=== PATIENT | male | born 1950 | race Hispanic/Latino ===

== ENCOUNTER 2018-03-11 20:13 | Inpatient (IN) | payer MEDICARE ==
[2018-03-11 20:25] VITALS: BMI 22.2
[2018-03-11] MEDS ORDERED: Albuterol-Ipratrop 3 mg / 0.5 (3 ml) UD IH STA ×2 (20:28→20:29)
--- NOTE | 2018-03-11 20:30 | ED PDOC ---
Arrival/HPI - General Time Seen by Provider: 03/11/18 20:16 Historian: Patient - History of Present Illness Narrative History of Present Illness (Text): 03/11/18 20:30 Efraín Lambert is a 67 year old male, whose past medical history includes Stage 4 lung cancer on immunotherapy, who presents to the Emergency department complaining of shortness of breath. Patient states he has been experiencing shortness of breath for the past few days, worsening tonight, with associated cough and chest discomfort. Patient denies any fever, chills, nausea, vomiting, diarrhea, urinary symptoms, back pain, neck pain, headache, dizziness, or any other complaints. Symptom Onset: Gradual Symptom Course: Unchanged Activities at Onset: Light Context: Home Past Medical History - Provider Review Nursing Documentation Reviewed: Yes Family/Social History - Physician Review Nursing Documentation Reviewed: Yes Family/Social History: No Known Family HX Allergies/Home Meds Allergies/Adverse Reactions: Allergies azithromycin [From Zithromax Z-Denzel] Adverse Reaction (Verified 03/11/18 20:40) RASH ketamine Adverse Reaction (Verified 03/11/18 20:40) RASH Penicillins Adverse Reaction (Verified 03/11/18 20:40) RASH Home Medications: Home Meds Medication Instructions Recorded Confirmed Albuterol HFA [Ventolin HFA 90 2 puff IH [id number] 03/11/18 03/12/18 mcg/actuation (8 g)] DULoxetine [Cymbalta] 60 mg PO DAILY 03/11/18 03/12/18 Gabapentin [Neurontin] 300 mg PO TID 03/11/18 03/12/18 Metoprolol Succinate XL [Toprol XL] 100 mg PO DAILY 03/11/18 03/12/18 RX: Naproxen [Naprosyn Tab] 375 mg PO BID 03/11/18 03/12/18 RX: Omeprazole 20 mg PO DAILY 03/11/18 03/12/18 diaZEpam [Valium] 5 mg PO BID 03/11/18 03/12/18 Review of Systems - Physician Review All systems were reviewed & negative as marked: Yes - Review of Systems Constitutional: Normal. absent: Fevers Eyes: Normal ENT: Normal Respiratory: SOB, Cough Cardiovascular: Chest Pain Gastrointestinal: Normal. absent: Abdominal Pain, Diarrhea, Nausea, Vomiting Genitourinary Male: Normal. absent: Dysuria, Frequency, Hematuria, Urinary Output Changes Musculoskeletal: Other (+lower extremity swelling). absent: Back Pain, Neck Pain Skin: Normal. absent: Rash Neurological: Normal. absent: Headache, Dizziness Endocrine: Normal Hemo/Lymphatic: Normal Psychiatric: Normal Physical Exam Vital Signs Reviewed: Yes Temperature: Afebrile Blood Pressure: Normal Pulse: Regular Respiratory Rate: Normal Appearance: Positive for: Non-Toxic, Cachectic Pain Distress: None Mental Status: Positive for: Alert and Oriented X 3 - Systems Exam Head: Present: Atraumatic, Normocephalic Pupils: Present: PERRL Extroacular Muscles: Present: EOMI Conjunctiva: Present: Normal Mouth: Present: Moist Mucous Membranes Neck: Present: Normal Range of Motion Respiratory/Chest: Present: Decreased Breath Sounds (Decreased breath sounds bilaterally). No: Respiratory Distress, Accessory Muscle Use Cardiovascular: Present: Regular Rate and Rhythm, Normal S1, S2. No: Murmurs Abdomen: No: Tenderness, Distention, Peritoneal Signs Back: Present: Normal Inspection Upper Extremity: Present: Normal Inspection. No: Cyanosis, Edema Lower Extremity: Present: Edema (1+ pitting edema bilaterally) Neurological: Present: GCS=15, CN II-XII Intact, Speech Normal Skin: Present: Warm, Dry, Normal Color. No: Rashes Psychiatric: Present: Alert, Oriented x 3, Normal Insight, Normal Concentration Medical Decision Making ED Course and Treatment: 03/11/18 20:30 Impression: 67 year old male complaining of shortness of breath, chest discomfort, and cough. Plan: -- EKG -- Chest X-ray -- Labs, cardiac enzymes, BNP -- Duoneb -- Reassess and disposition Progress Notes: Reviewed EKG, sinus tachycardia at 108 bpm. Lateral T wave changes. 03/11/18 21:25 Chest X-ray reviewed, shows white out of the right lung. 03/11/18 22:05 Pt tachycardic with WBC: 19.1 and lactate: 2.2. Code Sepsis called. 03/11/18 22:08 Case discussed with medical records secretary adjunct instructor in economics, who is aware and agrees with plan. 03/11/18 22:[address] Kruger, marina sales and service supervisor, who agrees to evaluate pt for possible ICU admission. 03/11/18 22:[address] Kruger, present in Emergency department to evaluate pt. Pt will be admitted to the ICU for sepsis, pneumonia, and lung cancer under the hospitalist service.Will hold off on IV fluids at this time given patients elevated BNP/pulmonary status. - Critical Care Critical Care Minutes: 30 minutes - Lab Interpretations I have reviewed the lab results: Yes - RAD Interpretation Radiology Orders: 03/11/18 20:28 CHEST PORTABLE [RAD] Stat Core Drilling Supervisor: ED Physician - EKG Interpretation Interpreted by ED Physician: Yes Type: 12 lead EKG - Medication Orders Current Medication Orders: Albuterol/Ipratropium (Duoneb 3 Mg/0.5 Mg (3 Ml) Ud) 3 ml IH ONCE STA Stop: 03/11/18 20:29 - Scribe Statement The provider has reviewed the documentation as recorded by the Cleveibisaac Godwin Provider Scribe Attestation: All medical record entries made by the Scribe were at my direction and personally dictated by me. I have reviewed the chart and agree that the record accurately reflects my personal performance of the history, physical exam, medical decision making, and the department course for this patient. I have also personally directed, reviewed, and agree with the discharge instructions and disposition. Disposition/Present on Arrival - Present on Arrival Any Indicators Present on Arrival: No History of DVT/PE: No History of Uncontrolled Diabetes: No Urinary Catheter: No History of Decub. Ulcer: No History Surgical Site Infection Following: None - Disposition Have Diagnosis and Disposition been Completed?: Yes Diagnosis: Pneumonia, Sepsis, Lung cancer Disposition: HOSPITALIZED Disposition Time: 23:04 Patient Plan: ICU Patient Problems: Current Active Problems Problem Status Onset Lung cancer Acute Pneumonia Acute Sepsis Acute Condition: GUARDED
[2018-03-11 21:09] LABS: HEMOGLOBIN 11.3 g/dL (14.0-18.0); MEAN CELL VOLUME 83.7 fl (80.0-105.0); MEAN CORPUSCULAR HGB CONC 32.3 g/dl (31.0-37.0); RBC 4.18 10^6/uL (3.5-6.1); RED CELL DISTRIBUTION WIDTH 15.8 % (11.5-14.5); WHITE BLOOD COUNT 19.1 10^3/uL (4.5-11.0)
[2018-03-11 21:18] LABS: INR 1.41; PARTIAL THROMBOPLASTIN TIME 28.5 Seconds (25.1-36.5); PROTHROMBIN TIME 16.2 SECONDS (9.4-12.5)
[2018-03-11 21:19] LABS: ALBUMIN 3.4 g/dL (3.0-4.8); ALT/SGPT 26 U/L (7-56); AST/SGOT 22 U/L (17-59); BLOOD UREA NITROGEN 55 mg/dL (7-21); CALCIUM 8.9 mg/dL (8.4-10.5); GFR NON-AFRICAN AMERICAN 43
[2018-03-11 21:31] LABS: B-TYPE NATRIURETIC PEPTIDE 6550 pg/mL (0-450); TROPONIN I 0.03 ng/mL
[2018-03-11] MEDS ORDERED: Aztreonam 2 Gm in NS 100mL 100 ML IVPB STA (21:33)
[2018-03-11] MEDS ORDERED: Vancomycin 1gm in NS 250ml 1 GM/250 ML BAG IVPB STA (21:33)
[2018-03-11 21:52] LABS: VENOUS BLOOD GAS BASE EXCESS 1.3 mmol/L (0.0-2.0); VENOUS BLOOD GAS PO2 57 mm/Hg (30-55); VENOUS BLOOD PH 7.37 (7.32-7.43)
[2018-03-11 23:27] LABS: ARTERIAL BLOOD GAS O2 SAT 88.8 % (95-98); ARTERIAL BLOOD GAS PCO2 38 mm/Hg (35-45); ARTERIAL BLOOD GAS PH 7.39 (7.35-7.45); ARTERIAL BLOOD GAS TCO2 24.2 mmol.L (22-28)
--- NOTE | 2018-03-11 23:37 | CP.PCM.HP ---
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 Patient reports his shortness of breath has been worsening over the past two weeks. 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 He reported that he has had chemo-radiation therapies in the past; and reported during evaluation that he has had remission in the past. He reports during the past two weeks his SOB has been associated w/ worsening orthopnea, productive cough w/ dark sputum, 20lb weight loss, decreased appetite + nausea, and 2 days of worsening bilateral lower extremity edema. Also reports worsening fatigue/ lethargy and weakness. Patient also reported intermittent periods of heaviness in his chest and mild chest pains; denies any at present. Patient also reports increasing crusting/discharge, and burning from his eyes over the past two weeks. He reports he is very thirsty. He also reports a rash on his buttocks He denies fevers, chills, night sweats, V/D/C, abd pain, urinary discomfort/ pain, hematuria, numbness/tingling. Remainder 12 system ROS is otherwise negative. PMD: Debby [phone] PHARM: [facility]: Only medications w/ full sig were updated into EMR The following agents were listed on file w/ patient's pharmacy: [facility] Naproxen 375 BID Omeprazole 20 QD Duloxetine 60mg QD Ventolin 2puff Q6H metroprolol er 100 qd diazepam 5 BID Gabapentin 300 TID The following agents were listed in patient's phone; not on file w/ pharamcy Abrazane 200 Zofran Depadron dose unknown Taxotere 6 on 2 off Taxol Oxycontin 20 Percocet 5-325 Kytril Folic acid Lomotil PSH: Appy, Liver ablation ALL: Ketamine, Zithromax, Penicillin Social: Quit smoking 30 years ago, EtOH daily 1-2 drinks nightly, Denies illicit drugs Present on Admission - Present on Admission Any Indicators Present on Admission: Yes History of DVT/PE: No Review of Systems - Review of Systems All systems: reviewed and no additional remarkable complaints except Review of Systems: as per HPI Past Patient History - Infectious Disease Hx of Infectious Diseases: None - Past Social History Smoking Status: Former Smoker - CARDIAC Hx Hypertension: Yes - PULMONARY Hx Chronic Obstructive Pulmonary Disease (COPD): Yes - HEMATOLOGICAL/ONCOLOGICAL Hx Cancer: Yes (lung CA mets to liver) - PSYCHIATRIC Hx Substance Use: No - SURGICAL HISTORY Other/Comment: PORT a CAth (Left) - ANESTHESIA Hx Anesthesia: Yes Meds Allergies/Adverse Reactions: Allergies Allergy/AdvReac Type Severity Reaction Status Date / Time azithromycin AdvReac RASH Verified 03/11/18 20:40 [From Zithromax Z-Denzel] ketamine AdvReac RASH Verified 03/11/18 20:40 Penicillins AdvReac RASH Verified 03/11/18 20:40 Physical Exam - Constitutional Appears: Toxic (Very weak/ill appearing ), Chronically Ill - Head Exam Head Exam: ATRAUMATIC, NORMOCEPHALIC - Eye Exam Eye Exam: Conjunctival injection, EOMI, PERRL Additional comments: Mucupurlent discharge from eyes bilaterally - ENT Exam ENT Exam: Mucous Membranes Moist Additional comments: Purulent discharge in mouth - Respiratory Exam Additional comments: RML/RLL significantly decreased breath sounds; Left upper, middle, and lower lung khan - good air moovement, diffuse ronchi/ rales - Cardiovascular Exam Cardiovascular Exam: Tachycardia, +S1, +S2. absent: Systolic Murmur - GI/Abdominal Exam GI & Abdominal Exam: Normal Bowel Sounds, Soft. absent: Tenderness - Extremities Exam Additional comments: 1+ pitting edema bilaterally Distal pulses diminished bilaterally - Neurological Exam Neurological exam: Alert, Oriented x3 - Psychiatric Exam Psychiatric exam: Anxious - Skin Skin Exam: Dry, Intact, Normal Color, Warm Results - Vital Signs Recent Vital Signs: Last Vital Signs Temp 97.8 F 03/11/18 20:25 Pulse 108 H 03/11/18 22:33 Resp 20 03/11/18 22:33 BP 149/79 03/11/18 22:33 Pulse Ox 100 03/11/18 22:33 - Labs Result Diagrams: 03/11/18 20:55 03/11/18 20:55 Labs: Laboratory Results - last 24 hr 03/11/18 03/11/18 03/11/18 20:55 20:55 20:55 WBC 19.1 H RBC 4.18 Hgb 11.3 L Hct 35.0 L MCV 83.7 MCH 27.0 MCHC 32.3 RDW 15.8 H Plt Count 195 MPV 10.0 PT 16.2 H INR 1.41 APTT 28.5 pO2 VBG pH VBG pCO2 VBG HCO3 VBG Total CO2 VBG O2 Sat (Calc) VBG Base Excess VBG Potassium Glucose Lactate FiO2 Sodium 137 Potassium 4.6 Chloride 98 Carbon Dioxide 26 Anion Gap 17 BUN 55 H Creatinine 1.6 H Est GFR ( Amer) 52 Est GFR (Non-Af Amer) 43 Random Glucose 119 H Calcium 8.9 Total Bilirubin 1.8 H AST 22 ALT 26 Alkaline Phosphatase 116 Lactate Dehydrogenase 324 L Total Creatine Kinase < 20 L Troponin I 0.03 NT-Pro-B Natriuret Pep 6550 H Total Protein 6.6 Albumin 3.4 Globulin 3.3 Albumin/Globulin Ratio 1.0 L Venous Blood Potassium 03/11/18 21:30 WBC RBC Hgb Hct MCV MCH MCHC RDW Plt Count MPV PT INR APTT pO2 57 H VBG pH 7.37 VBG pCO2 47.0 VBG HCO3 27.2 VBG Total CO2 28.6 H VBG O2 Sat (Calc) 91.0 H VBG Base Excess 1.3 VBG Potassium 4.5 Glucose 115 H Lactate 2.2 H FiO2 21.0 Sodium 135.0 Potassium Chloride 98.0 Carbon Dioxide Anion Gap BUN Creatinine Est GFR ( Amer) Est GFR (Non-Af Amer) Random Glucose Calcium Total Bilirubin AST ALT Alkaline Phosphatase Lactate Dehydrogenase Total Creatine Kinase Troponin I NT-Pro-B Natriuret Pep Total Protein Albumin Globulin Albumin/Globulin Ratio Venous Blood Potassium 4.5 Assessment & Plan - Assessment and Plan (Free Text) Assessment: 67M w/ a reported 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 Patient is admitted to ICU for management and treatment of hypoxemic respiratory failure. Patient also found to have the following assessments upon admission: Hypoxemic Respiratory Failure Possible New onset CHF Bacterial conjunctivitis SAUD Hx of Anxiety / Depression Adenoid CA w/ mets to liver/lung/bone Sepsis PLAN: Neuro: Hx of Anxiety/ Depression -AAOx3, no FND, moving extremities past midline. -Continue monitoring neuro status -Would hold home diazepam at this time as to not suppress respiratory drive -Resume home duloxetine -Judacious use of anxiolytics -Pt is deilrious; unable to follow instruction -Will keep pt npo for now; swallow eval to be followed up -Reorient patient as necessary. Cardio: -BNP elevated; Mild ischemic changes seen on EKG; Tachcardic -First trop equivocal -Trend troponin x2 -F/u AM EKG -C/w home metoprolol xl 100 -F/u Echo -Maintain MAP>65. -Monitor for S/S, HD compromise. -Can consider milrinone drip -Cardiology consulted, appreciate reccs Pulm: -RML/RLL w/ decreased breath sounds -03/11 CXR - diffuse R sided white out w/ tracheal deviation towards the left ; Cardiac plueral effusion vs Malignant pleural effusion vs atelcatsis vs pneumonia -F/u CT Chest official read pending; Appears to be very large compression atelectasis as interpreted by me -IR Consulted, appreciate reccs -F/u Procal -ABG shows mild hypoxemia -Patient becomes agitated due to positional changes begins complaining of severe cough and shortness of breath overnight; -Will start patient on bipap at this time 12/6 FIO2 40 @ 12/min -Chest PT -Repeat AM ABG and CXR -Maintain O2 saturation>95%. -Elevate bed to 45 degrees ; Aspiration precautions GI: -Patient reports decreased appetite at this time - LFT wnl; Tbili elevated; Asx on abdominal exam -Can c/w normal diet at this time -Supplement w/ ensure -Protonix 40mg IVP /Nephro: -BUN/Cr: 55/1.6 - SAUD vs CKD -Judacious fluid resucitation given volume overload -Will start gentle hydration at 50cc/hr -UA pending -Continue monitoring urine outpt -Replete electrolytes as needed -Can consider milrninone to increase renal perfusion -Maintain euvolemia; Endocrinology: -Random glucose: 119 -Maintain euglycemia. Heme/Onc: Previous Hx of Adenoid CA w/ mets to lung, liver, bone -Heme/Onc consulted - Dr. Vaughn - Per patient's request -Hb 11; PLT 195 -Leukocytosis -19.1 - Reactive 2/2 CA vs Infectious -No signs of HD compromise at this time -Continue monitoring H/H -Home Chemo regimen listed in H&P ID: -Afebrile, w/ leukocytosis and tachycardia; lactate elevated 2.5 -No clear source of infection; -No need for bolus given patient showing signs of volume overload (new onset LE pitting edema) -Panculture pending -Will c/w vancomycin + aztreonam given azithryomycin + penicillin allergies -F/u Procal -Follow up BCx, UCx, SputCx -Monitor for signs and symptoms of infection. DVT prophylaxis: Heparin 5000 Q8 GI prophylaxis: Protonix 40mg IVP Patient seen and examined with attending Dr. Saskia Early DO PGY1 Internal Medicine Laboratory Mechanical Technician - Hospitalist ICU Admission Note <Sandy Kruger - Last Filed: 03/12/18 05:08> Results - Vital Signs Recent Vital Signs: Last Vital Signs Temp 97.8 F 03/11/18 20:25 Pulse 108 H 03/11/18 22:33 Resp 18 03/12/18 00:45 BP 149/79 03/11/18 22:33 Pulse Ox 98 03/12/18 00:45 - Labs Result Diagrams: 03/11/18 20:55 03/11/18 20:55 Labs: Laboratory Results - last 24 hr 03/11/18 03/11/18 03/11/18 20:55 20:55 20:55 WBC 19.1 H RBC 4.18 Hgb 11.3 L Hct 35.0 L MCV 83.7 MCH 27.0 MCHC 32.3 RDW 15.8 H Plt Count 195 MPV 10.0 PT 16.2 H INR 1.41 APTT 28.5 pCO2 pO2 HCO3 ABG pH ABG Total CO2 ABG O2 Saturation ABG Base Excess ABG Potassium VBG pH VBG pCO2 VBG HCO3 VBG Total CO2 VBG O2 Sat (Calc) VBG Base Excess VBG Potassium Glucose Lactate FiO2 Sodium 137 Potassium 4.6 Chloride 98 Carbon Dioxide 26 Anion Gap 17 BUN 55 H Creatinine 1.6 H Est GFR ( Amer) 52 Est GFR (Non-Af Amer) 43 Random Glucose 119 H Calcium 8.9 Total Bilirubin 1.8 H AST 22 ALT 26 Alkaline Phosphatase 116 Lactate Dehydrogenase 324 L Total Creatine Kinase < 20 L Troponin I 0.03 NT-Pro-B Natriuret Pep 6550 H Total Protein 6.6 Albumin 3.4 Globulin 3.3 Albumin/Globulin Ratio 1.0 L Arterial Blood Potassium Venous Blood Potassium 03/11/18 03/11/18 03/12/18 21:30 23:20 01:30 WBC RBC Hgb Hct MCV MCH MCHC RDW Plt Count MPV PT INR APTT pCO2 38 pO2 57 H 52.0 L 36 HCO3 23.0 ABG pH 7.39 ABG Total CO2 24.2 ABG O2 Saturation 88.8 L ABG Base Excess -1.7 ABG Potassium 4.3 VBG pH 7.37 7.30 L VBG pCO2 47.0 57.0 VBG HCO3 27.2 28.0 VBG Total CO2 28.6 H 29.7 H VBG O2 Sat (Calc) 91.0 H 64.6 VBG Base Excess 1.3 0.4 VBG Potassium 4.5 4.4 Glucose 115 H 119 H 120 H Lactate 2.2 H 2.5 H 2.5 H FiO2 21.0 28.0 21.0 Sodium 135.0 136.0 136.0 Potassium Chloride 98.0 99.0 98.0 Carbon Dioxide Anion Gap BUN Creatinine Est GFR ( Amer) Est GFR (Non-Af Amer) Random Glucose Calcium Total Bilirubin AST ALT Alkaline Phosphatase Lactate Dehydrogenase Total Creatine Kinase Troponin I NT-Pro-B Natriuret Pep Total Protein Albumin Globulin Albumin/Globulin Ratio Arterial Blood Potassium 4.3 Venous Blood Potassium 4.5 4.4 Attending/Attestation - Attestation I have personally seen and examined this patient.: Yes I have fully participated in the care of the patient.: Yes I have reviewed all pertinent clinical information: Yes Notes (Text): 03/12/18 02:11 Seen when he was in the ER in bed # 7. History obtained from and some from patient. Agree with history, physical examination, assessment and plan with some inclusions and exclusions. 67 year old white male came with, CC: Dyspnea. Weakness. Not eating. No appetite. Depressed since Son in December 26. Both eye conjunctivitisx 1 week. Lost 20 lbs in one month. Both legs swelling. Severe hypoxia. Sepsis. Sinus tachycardia. Lateral leads T wave changes. Elevated lactate level. Leukocytosis-19.1 Borderline anemia-11.3/35 Coag-PT 16.2H BNP-6550. VBG--Lactate 2.2 CHEM-BUN/Cr.55/1.6;T.Miguel-1.8H LDH 324H,BNP-6550H CXR-Opafification of total right lung field. CT CHEST:Right sided central hilar bronchial obstruction. Complete passive atelectasis disease in right lung. Mild mediastianal shift to the left side. Left Port-A-Cath in good position with tip in SVC. Diffuse centrilobular and septal thickening/nodularity with irregularity of left lung , ? lymphangitis carcinomatosis. Mildly enlarged mediastinal and hilar lymph nodes the largest measuring 1.4 cm. Calcified atheromatous plaque of the thoracic aorta and visualized great vessels. No demonstrated aortic aneurism. Moderate diffuse spondylosis. Small sliding hiatal hernia. PMH: Stage Iv lung cancer.Sees a [facility] oncologist. On Immunotherapy. HTN. DM II. Appendectomy. Port-a-cath insertion. Last chemotherpay one year ago. B/L cataract surgery. Mets to liver History of hepatitis A. Ablation of liver ( In patient's word.) HOME MEDS: Metoprolol 100 mg PO daily. PLAN: ICU. NPO. Oncology consult.-Dr. Vaughn. Smooth Izquierdo Consult. Pulmonary consult. ID consult Nephrology consult-. Cardiology consult. IV antibiotics.-Azactam, vancomycin. ABG Arterial.-Hypoxia--->Hiflo oxygen therapy. IV hydration. GI/DVT prophylaxis. 03/12/18 05:07
[2018-03-12 01:43] LABS: VENOUS BLOOD GAS BASE EXCESS 0.4 mmol/L (0.0-2.0); VENOUS BLOOD GAS PO2 36 mm/Hg (30-55)
[2018-03-12] MEDS ORDERED: Sodium Chloride 0.9% 1,000 ML IV SCH (01:45)
--- NOTE | 2018-03-12 02:32 | PCM.SEPTIC ---
<Carolee Rice - Last Filed: 03/12/18 02:28> Sepsis Progress Note - Reassessment Type Date of Evaluation: 03/12/18 Time of Evaluation: 01:30 Reassessment Type: Non-invasive reassessment - Non Invasive Reassessment Were the most recent vital sign reviewed: Yes Vital Sign (Latest): Temp Pulse Resp BP Pulse Ox 97.8 F 108 H 18 149/79 98 03/11/18 20:25 03/11/18 22:33 03/12/18 00:45 03/11/18 22:33 03/12/18 00:45 Cardiovascular: Yes: Tachycardia. No: Murmur Respiratory: Yes: Normal Breath Sounds. No: Accessory Muscle Use Capillary Refill: Normal (Less than 2 sec) Pulses: Normal Radial, Normal Dorsalis Pedis, Normal Posterior Tibialis Skin: Pale <Sandy Kruger - Last Filed: 03/12/18 02:39> Sepsis Progress Note - Non Invasive Reassessment Vital Sign (Latest): Temp Pulse Resp BP Pulse Ox 97.8 F 135 H 18 149/79 100 03/11/18 20:25 03/12/18 02:00 03/12/18 00:45 03/11/18 22:33 03/12/18 02:00 Attending/Attestation - Attestation I have personally seen and examined this patient.: Yes I have fully participated in the care of the patient.: Yes I have reviewed all pertinent clinical information, including history, physical exam and plan: Yes
[2018-03-12] MEDS: Sodium Chloride 0.9% 1,000 ML IV SCH (04:47)
[2018-03-12] MEDS ORDERED: Aztreonam 1 Gm in NS 100mL 100 ML IVPB SCH (06:00)
[2018-03-12 06:08] LABS: BASO # 0.01 K/mm3 (0.0-2.0); BASO % 0.1 % (0.0-3.0); GRAN # 16.71 (1.4-6.5); GRAN % 90.6 % (50.0-68.0); HEMOGLOBIN 11.1 g/dL (14.0-18.0); LYMPH # 0.6 (1.2-3.4); MEAN CELL VOLUME 84.5 fl (80.0-105.0); MEAN CORPUSCULAR HEMOGLOBIN 26.4 pg (25.0-35.0); MEAN CORPUSCULAR HGB CONC 31.3 g/dl (31.0-37.0); MEAN PLATELET VOLUME 10.4 fl (7.0-11.0); MONO # 1.2 (0.1-0.6); MONO % 6.3 % (1.0-6.0); PLATELET COUNT 187 10^3/uL (120.0-450.0); RED CELL DISTRIBUTION WIDTH 15.9 % (11.5-14.5); WHITE BLOOD COUNT 18.5 10^3/uL (4.5-11.0)
[2018-03-12 06:14] LABS: ALBUMIN 3.3 g/dL (3.0-4.8); CALCIUM 8.8 mg/dL (8.4-10.5)
[2018-03-12 06:21] LABS: TROPONIN I 0.06 ng/mL
[2018-03-12 06:44] LABS: ARTERIAL BLOOD GAS HCO3 25.9 mmol/L (21-28); ARTERIAL BLOOD GAS PCO2 40 mm/Hg (35-45); ARTERIAL BLOOD GAS PH 7.42 (7.35-7.45); ARTERIAL BLOOD GAS TCO2 27.1 mmol.L (22-28)
[2018-03-12 07:02] LABS: BAND 6 % (0-2); EOSINOPHIL 1 % (0.0-3.0); LYMPHOCYTE 4 % (22.0-35.0); MONOCYTE 4 % (1.0-6.0); NEUTROPHIL 85 % (50.0-70.0); PLATELET ESTIMATE NORMAL (NORMAL)
[2018-03-12 07:03] LABS: ANISOCYTOSIS SLIGHT; POIKILOCYTOSIS SLIGHT; TOXIC GRANULATION SLIGHT
[2018-03-12] MEDS: Albuterol-Ipratrop 3 mg / 0.5 (3 ml) UD IH PRN (07:42)
--- NOTE | 2018-03-12 09:10 | RAD ---
Date of service: 03/11/2018 HISTORY: sob COMPARISON: No prior. FINDINGS: LUNGS: There is complete opacification of the right hemithorax. There is no mediastinal shift PLEURA: As above CARDIOVASCULAR: Aortic calcification Normal cardiac size. No pulmonary vascular congestion. OSSEOUS STRUCTURES: No significant abnormalities. VISUALIZED UPPER ABDOMEN: Normal. OTHER FINDINGS: None. IMPRESSION: There is complete opacification of the right hemithorax. There is no mediastinal shift
[2018-03-12 09:13] LABS: URINE BILIRUBIN MODERATE (NEGATIVE); URINE BLOOD LARGE (NEGATIVE); URINE GLUCOSE (UA) NEGATIVE (NEGATIVE); URINE LEUKOCYTE ESTERASE TRACE Leu/uL (NEGATIVE); URINE PROTEIN 30 mg/dL (<30 mg/dL)
[2018-03-12 09:17] LABS: URINE APPEARANCE CLOUDY (CLEAR); URINE COLOR LIGHT BROWN (YELLOW)
--- NOTE | 2018-03-12 09:28 | RAD ---
Date of service: 03/12/2018 HISTORY: R sided whiteout COMPARISON: 03/11/2018 FINDINGS: LUNGS: There is complete opacification of the right lung. This is unchanged. There is no mediastinal shift PLEURA: No significant pleural effusion identified, no pneumothorax apparent. CARDIOVASCULAR: Aortic calcification Normal cardiac size. No pulmonary vascular congestion. OSSEOUS STRUCTURES: No significant abnormalities. VISUALIZED UPPER ABDOMEN: Normal. OTHER FINDINGS: Left-sided Port-A-Cath IMPRESSION: There is complete opacification of the right lung. This is unchanged. There is no mediastinal shift
[2018-03-12 09:41] LABS: URINE RBC TNTC /hpf (0-2); URINE WBC 15 - 20 /hpf (0-6)
[2018-03-12 09:42] LABS: URINE AMORPHOUS SEDIMENT MODERATE /hpf; URINE BACTERIA MANY /hpf; URINE COARSE GRANULAR CAST SMALL /hpf; URINE EPITHELIAL CELLS 0 - 2 /hpf (0-5); URINE FINE GRANULAR CAST 0 - 2 /hpf
[2018-03-12] MEDS: Metoprolol Succinate 100 mg XL Tab PO SCH (09:47)
[2018-03-12] MEDS: Vancomycin 1gm in NS 250ml 1 GM/250 ML BAG IVPB SCH (09:52)
[2018-03-12] MEDS: Meropenem IV 1 gm in NS 1 GM/50 ML BAG IVPB SCH ×2 (09:52→22:00)
[2018-03-12] MEDS ORDERED: Vancomycin 1gm in NS 250ml 1 GM/250 ML BAG IVPB SCH (10:00)
--- NOTE | 2018-03-12 10:07 | CARD ---
APPROVED REPORT Date of service: 03/12/2018 EKG Measurement Heart [id number] CO [id number] <Conclusion> Sinus tachycardia Low voltage QRS Nonspecific T wave abnormality Abnormal ECG
--- NOTE | 2018-03-12 10:08 | CARD ---
APPROVED REPORT Date of service: 03/11/2018 EKG Measurement Heart [id number] [place] [id number] <Conclusion> Sinus tachycardia T wave abnormality, consider lateral ischemia Abnormal ECG
--- NOTE | 2018-03-12 10:21 | CP.PCM.PN ---
<Azar Chen - Last Filed: 03/12/18 13:51> Subjective - Date & Time of Evaluation Date of Evaluation: 03/12/18 Time of Evaluation: 07:30 - Subjective Subjective: Carlos Gustavo PGy2 - ICU Progress Note Patient seen and examined this AM. Patient is somnolent on BiPAP ROS limited. Patient noted to be agitated with placement of BiPAP overnight and placed in soft restraints. Objective - Vital Signs/Intake and Output Vital Signs (last 24 hours): Temp Pulse Resp BP Pulse Ox 98.5 F 119 H 24 125/69 99 03/12/18 07:00 03/12/18 09:47 03/12/18 08:17 03/12/18 09:47 03/12/18 08:17 - Medications Medications: Current Medications Albuterol/Ipratropium (Duoneb 3 Mg/0.5 Mg (3 Ml) Ud) 3 ml IH Q2H PRN PRN Reason: Shortness of Breath Last Admin: 03/12/18 07:42 Dose: 3 ml Ciprofloxacin (Ciloxan 0.3% Oph Soln) 2 drop OU Q6 DAVID Stop: 03/18/18 06:00 Duloxetine HCl (Cymbalta) 60 mg PO DAILY DAVID Last Admin: 03/12/18 09:43 Dose: Not Given Gabapentin (Neurontin) 300 mg PO TID DAVID; Protocol Last Admin: 03/12/18 09:44 Dose: Not Given Sodium Chloride (Sodium Chloride 0.9%) 1,000 mls @ 30 mls/hr IV .Q24H DAVID Last Admin: 03/12/18 04:47 Dose: 30 mls/hr Meropenem (Merrem Iv 1 Gm Premix) 1 gm in 50 mls @ 12.5 mls/hr IVPB Q12 DAVID; Protocol Stop: 03/21/18 10:01 Last Admin: 03/12/18 09:52 Dose: 12.5 mls/hr Doxycycline Hyclate 100 mg/ (Sodium Chloride) 100 mls @ 100 mls/hr IVPB Q12 DAVID; Protocol Stop: 03/21/18 10:01 Last Admin: 03/12/18 09:57 Dose: 100 mls/hr Vancomycin HCl (Vancomycin 1gm) 1 gm in 250 mls @ 167 mls/hr IVPB DAILY DAVID; Protocol Stop: 03/21/18 10:01 Last Admin: 03/12/18 09:52 Dose: 167 mls/hr Metoprolol Succinate (Toprol Xl) 100 mg PO DAILY [facility] Last Admin: 03/12/18 09:47 Dose: Not Given Pantoprazole Sodium (Protonix Inj) 40 mg IVP DAILY [facility] Last Admin: 03/12/18 09:54 Dose: 40 mg - Labs Labs: 03/12/18 05:20 03/12/18 05:20 PT 16.2 SECONDS (9.4-12.5) H 03/11/18 20:55 INR 1.41 03/11/18 20:55 APTT 28.5 Seconds (25.1-36.5) 03/11/18 20:55 - Constitutional Appears: No Acute Distress - Head Exam Head Exam: ATRAUMATIC, NORMOCEPHALIC - Eye Exam Eye Exam: Conjunctival injection, PERRL - ENT Exam ENT Exam: Mucous Membranes Dry, Normal External Ear Exam - Respiratory Exam Additional comments: absent breath sounds on the right Left side without rales, rhonchi - Cardiovascular Exam Cardiovascular Exam: Tachycardia, REGULAR RHYTHM, +S1, +S2 - GI/Abdominal Exam GI & Abdominal Exam: Soft, Normal Bowel Sounds. 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 Patient admitted to ICU for hypoxemia respiratory failure with right sided pleural effusion. Plan: Neruo - Alert and oriented, somnolent on exam - GCS 11 - Continue to monitor and evaluate neuro status Cardio Hx HTN - Maintain MAP >65 - Holding morning metoprolol as patient normotensive Elevated BNP, ?CHF picture - Patient with elevated BNP(6550), no baseline to draw from - Bilateral edema, normotenisive, hx of orthopnea(possible secondary to increasing pleural effusion) - Echocardiogram ordered pending Indeterminate trops - Trop 0.03, 0.06, third pending - EKG showing sinus tachycardia, no prevalent ST wave depression/elevation Pulmonary Hx of Lung adenocarcinoma Right sided pleural effusion, multiloculated - CXR with right sided white out - CT chest with complete atelectasis of the right lung with endobronchial obstruction, large right pleural effusion - Patient placed on BiPAP overnight, ABG improved, BiPAP discontinued today, monitor respiratory status - Vanc, Doxy, Merrem for pna coverage - IR consulted for therapeutic thoracentesis - Palliative care consulted for advance directive planning GI - Dietary supplementation - Awaiting swallow evaluation - Protonix for GI ppx RENAL - Slightly elevated Cr on admission - Gentle hydration Cr wnl on today's labs - Maintain euvolemia, replace lytes HEME/ONC Stage IV Lung adenocarcinoma - Heme/Onc following Luekocytosis - Etiology pneumonia vs. reactionary vs. malignancy ID Right sided pleural effusion/pneumonia Sepsis on admission with elevated Lactate, tachycardia, leukocytosis - Vanc, Aztreonam in ED, limited fluid challenge secondary to acute CHF picture - ID consulted and following DVT/GI PPX - Heparin - Protonix Patient seen, case and plan discussed with attending <Angelito Li - Last Filed: 03/12/18 14:13> Objective - Vital Signs/Intake and Output Vital Signs (last 24 hours): Temp Pulse Resp BP Pulse Ox 98.5 F 115 H 20 139/91 H 100 03/12/18 07:00 03/12/18 10:21 03/12/18 10:20 03/12/18 10:00 03/12/18 10:20 - Medications Medications: Current Medications Albuterol/Ipratropium (Duoneb 3 Mg/0.5 Mg (3 Ml) Ud) 3 ml IH Q2H PRN PRN Reason: Shortness of Breath Last Admin: 03/12/18 07:42 Dose: 3 ml Ciprofloxacin (Ciloxan 0.3% Ophth Soln) 2 drop OU Q6 DAVID Stop: 03/18/18 06:00 Last Admin: 03/12/18 12:00 Dose: 2 drop Duloxetine HCl (Cymbalta) 60 mg PO DAILY DAVID Last Admin: 03/12/18 09:43 Dose: Not Given Gabapentin (Neurontin) 300 mg PO TID [facility]; Protocol Last Admin: 03/12/18 14:04 Dose: Not Given Sodium Chloride (Sodium Chloride 0.9%) 1,000 mls @ 30 mls/hr IV .Q24H DAVID Last Admin: 03/12/18 04:47 Dose: 30 mls/hr Meropenem (Merrem Iv 1 Gm Premix) 1 gm in 50 mls @ 12.5 mls/hr IVPB Q12 DAVID; Protocol Stop: 03/21/18 10:01 Last Admin: 03/12/18 09:52 Dose: 12.5 mls/hr Doxycycline Hyclate 100 mg/ (Sodium Chloride) 100 mls @ 100 mls/hr IVPB Q12 DAVID; Protocol Stop: 03/21/18 10:01 Last Admin: 03/12/18 09:57 Dose: 100 mls/hr Vancomycin HCl (Vancomycin 1gm) 1 gm in 250 mls @ 167 mls/hr IVPB DAILY DAVID; Protocol Stop: 03/21/18 10:01 Last Admin: 03/12/18 09:52 Dose: 167 mls/hr Metoprolol Succinate (Toprol Xl) 100 mg PO DAILY DAVID Last Admin: 03/12/18 09:47 Dose: Not Given Pantoprazole Sodium (Protonix Inj) 40 mg IVP DAILY [facility]ID Last Admin: 03/12/18 09:54 Dose: 40 mg - Labs Labs: 03/12/18 05:20 03/12/18 05:20 PT 16.2 SECONDS (9.4-12.5) H 03/11/18 20:55 INR 1.41 03/11/18 20:55 APTT 28.5 Seconds (25.1-36.5) 03/11/18 20:55 Assessment and Plan - Assessment and Plan (Free Text) Plan: Patient seen and examined on rounds with resident, agree with note with following additions/exceptions: Patient is 67yo male with PMHx of Lung adenocarcinoma with mets bone, HTN, EtOH abuse, anxiety, depression who presented to [facility] for 2 week history of shortness of breath. Pt found to have large R sided pleural effusion. Pt is currently off biPap, somnolent, responds to painful stimuli. ABG done, no signs of hypercapnia. Will obtain CT head, ammonia level. Currently afebrile, BP stable, comfortable, somnolent, in NAD, o2 sat 95% on 4LNC Bedside limited US of lung demonstrates loculated R sided pleutral effusions w ith septations PNA Pleural Effusion Stage IV Lung AdenoCA EtOH abuse Hypoxia Recommend: - supp o2 as needed, duonebs PRN, BIPAP at night - Broad spectrum abx as per ID Geraldine Enriquez, Ilyay - BP contorl - IVF - Thoracentesis by IR - check UA, ulytes - Palliative care consult, goals of care discussion - GI ppx - DVT ppx - Monitor in MICU critical care time 35 minutes
--- NOTE | 2018-03-12 10:35 | CT ---
Date of service: 03/12/2018 PROCEDURE: CT Chest without contrast HISTORY: R sided white out COMPARISON: None available. TECHNIQUE: Contiguous axial images were obtained through the chest without intravenous contrast enhancement. Sagittal and coronal reconstructions were performed. Radiation dose: Total exam DLP = 572.63 mGy-cm. This CT exam was performed using one or more of the following dose reduction techniques: Automated exposure control, adjustment of the mA and/or kV according to patient size, and/or use of iterative reconstruction technique. FINDINGS: LUNGS: There is complete atelectasis of the right lung with endobronchial obstruction. There is a large right pleural effusion. MEDIASTINUM: Unremarkable thoracic aorta. No aneurysm. Normal sized heart. Main pulmonary artery unremarkable. No vascular congestion. No lymphadenopathy. There is aortic calcification. PLEURA: No pleural fluid. No pneumothorax. BONES: No fracture. No destructive lesion. UPPER ABDOMEN: Grossly unremarkable. OTHER FINDINGS: The report concurs with the preliminary [facility] report IMPRESSION: There is complete atelectasis of the right lung with endobronchial obstruction. There is a large right pleural effusion.
--- NOTE | 2018-03-12 11:19 | CON ---
DATE: 03/12/2018 The patient is seen in the ICU 128, bed 6. CHIEF COMPLAINT: Shortness of breath x1-2 weeks' duration. 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 The patient also has a chronic obstructive lung disease end-stage, who is a long-term ex-smoker, hypertension, long-term alcohol user, anxiety, who has a port-a-cath, has had chemotherapy, who is admitted with shortness of breath and at this point, the patient is confused, unable to give any information, he is combative, he has restraints on. There has been no fevers reported and no chest pain, no abdominal pain, diarrhea or constipation, no bright red blood per rectum. REVIEW OF SYSTEM: A 12-point review of systems is noted. PAST MEDICAL HISTORY: Stage IV lung cancer with bone and liver metastasis, alcohol abuse, hypertension, COPD. PAST SURGICAL HISTORY: Significant for port-a-cath. ALLERGIES: THE PATIENT IS ALLERGIC TO AZITHROMYCIN AND PENICILLIN. HOME MEDICATIONS: Medications at home include Cymbalta, Valium, Naprosyn, Toprol, Neurontin, and inhaler. PHYSICAL EXAMINATION: GENERAL: The patient is in bed with restraints in the ICU. VITAL SIGNS: Temperature of 98, heart rate of 117, respiratory rate of 22, blood pressure is 115/60. HEENT: Unremarkable. NECK: Supple. LUNGS: Decreased breath sounds. HEART: Normal S1 and S2. ABDOMEN: Soft and nontender. LABORATORY DATA: Reveals the patient's white count is 19,000, hemoglobin of 11, platelets of 195. The patient has 85% neutrophils, 6% bandemia, and coagulation with INR of 1.4. Blood gases are reviewed. The patient's BUN is 55, creatinine is 1.6, glucose is 119, bilirubin is 1.8, BNP is 550. Cultures are done. ASSESSMENT AND PLAN: He is a 67-year-old who presents with severe sepsis secondary to right-sided healthcare-associated pneumonia and acute kidney injury with a creatinine of 1.6. We will give 1 dose of vancomycin once daily, meropenem and doxycycline pending blood urine, sputum culture, urine for legionella antigen, echo results, hemoglobin A1c, procalcitonin and james culture results. We will follow with you. Edgard MD [facility] # [id number]
[2018-03-12] MEDS: Ciprofloxacin 0.3% OPTH SOLN OU SCH ×2 (12:00→19:29)
--- NOTE | 2018-03-12 13:07 | CP.PCM.CON ---
History of Present Illness - History of Present Illness History of Present Illness: Palliate consult requested by Dr Madeline Early Reason: Goals of care 67 year old male who presented to ED on 03/11/18 with shortness of breath of 2 weeks duration, orhtopnea and productive cough. He also reported loss of appetite,nausea, recent 20 pound weight loss, lower extremity edema, lethargy and weakness. He denied fever, chills, vomiting, diarrhea, headache,dizziness,chest or abdominal pain,urinary symptoms. EKG: Sinus tachycardia, lateral T wave changes Chest x ray showed white out of right lung Chest CT: Complete atelectasis of right lung with endotracheal obstruction. Large right pleural effusion. Labs: Lactate 2.2, Wbc 19.1, BUN 54, Discharging Machine Operator 1.6, T Bili 1.8,LDH 324, BNP 6550. Urine + proien, blood, leukocytes and bacteria. Blood/urine cultures pending PMHx: lung cancer mets to liver, bone currently on Opdivo immunotherapy,HTN, alcohol abuse. PSHx: liver ablation, appendectomy, left chest port a cath. Social History: Former 30 pk year smoker, daily alcohol use, no illicit drug use. Lives with spouse. Family History: Non contributory. Advance Care Planning:The patient does not have an Advanced Directive. Review of Systems: The patient is altered/ sedated unable to obtain. Past Patient History - Infectious Disease Hx of Infectious Diseases: None - Past Social History Smoking Status: Former Smoker - CARDIAC Hx Hypertension: Yes - PULMONARY Hx Chronic Obstructive Pulmonary Disease (COPD): Yes - HEMATOLOGICAL/ONCOLOGICAL Hx Cancer: Yes (lung CA mets to liver) - MUSCULOSKELETAL/RHEUMATOLOGICAL Hx Falls: No - PSYCHIATRIC Hx Substance Use: No - SURGICAL HISTORY Other/Comment: PORT a CAth (Left) - ANESTHESIA Hx Anesthesia: Yes Meds Allergies/Adverse Reactions: Allergies Allergy/AdvReac Type Severity Reaction Status Date / Time azithromycin AdvReac RASH Verified 03/11/18 20:40 [From Zithromax Z-Denzel] ketamine AdvReac RASH Verified 03/11/18 20:40 Penicillins AdvReac RASH Verified 03/11/18 20:40 - Medications Medications: Current Medications Albuterol/Ipratropium (Duoneb 3 Mg/0.5 Mg (3 Ml) Ud) 3 ml IH Q2H PRN PRN Reason: Shortness of Breath Last Admin: 03/12/18 07:42 Dose: 3 ml Ciprofloxacin (Ciloxan 0.3% Ophth Soln) 2 drop OU Q6 DAVID Stop: 03/18/18 06:00 Duloxetine HCl (Cymbalta) 60 mg PO DAILY [facility] Last Admin: 03/12/18 09:43 Dose: Not Given Gabapentin (Neurontin) 300 mg PO TID [facility]; Protocol Last Admin: 03/12/18 09:44 Dose: Not Given Sodium Chloride (Sodium Chloride 0.9%) 1,000 mls @ 30 mls/hr IV .Q24H [facility] Last Admin: 03/12/18 04:47 Dose: 30 mls/hr Meropenem (Merrem Iv 1 Gm Premix) 1 gm in 50 mls @ 12.5 mls/hr IVPB Q12 DAVID; Protocol Stop: 03/21/18 10:01 Last Admin: 03/12/18 09:52 Dose: 12.5 mls/hr Doxycycline Hyclate 100 mg/ (Sodium Chloride) 100 mls @ 100 mls/hr IVPB Q12 DAVID; Protocol Stop: 03/21/18 10:01 Last Admin: 03/12/18 09:57 Dose: 100 mls/hr Vancomycin HCl (Vancomycin 1gm) 1 gm in 250 mls @ 167 mls/hr IVPB DAILY DAVID; Protocol Stop: 03/21/18 10:01 Last Admin: 03/12/18 09:52 Dose: 167 mls/hr Metoprolol Succinate (Toprol Xl) 100 mg PO DAILY [facility] Last Admin: 03/12/18 09:47 Dose: Not Given Pantoprazole Sodium (Protonix Inj) 40 mg IVP DAILY [facility] Last Admin: 03/12/18 09:54 Dose: 40 mg Physical Exam - Constitutional Appears: Cachectic, Chronically Ill - Head Exam Head Exam: NORMOCEPHALIC - Eye Exam Eye Exam: Normal appearance, PERRL - ENT Exam ENT Exam: Mucous Membranes Moist - Neck Exam Neck exam: Positive for: Normal Inspection - Respiratory Exam Respiratory Exam: Rhonchi Additional comments: decreased breathing R>L - Cardiovascular Exam Cardiovascular Exam: Tachycardia, +S1, +S2 - GI/Abdominal Exam GI & Abdominal Exam: Normal Bowel Sounds, Soft - Extremities Exam Extremities exam: Positive for: pedal edema, pedal pulses present - Back Exam Back exam: NORMAL INSPECTION - Neurological Exam Neurological exam: Altered - Skin Skin Exam: Dry, Pallor, Warm - Additional Findings Additional findings: palliative performance rating 30% Results - Vital Signs Recent Vital Signs: Last Vital Signs Temp 98.5 F 03/12/18 07:00 Pulse 115 H 03/12/18 10:21 Resp 20 03/12/18 10:20 BP 139/91 H 03/12/18 10:00 Pulse Ox 100 03/12/18 10:20 - Labs Result Diagrams: 03/12/18 05:20 03/12/18 05:20 Labs: Laboratory Results - last 24 hr 03/11/18 03/11/18 03/11/18 20:55 20:55 20:55 WBC 19.1 H RBC 4.18 Hgb 11.3 L Hct 35.0 L MCV 83.7 MCH 27.0 MCHC 32.3 RDW 15.8 H Plt Count 195 MPV 10.0 Gran % Lymph % (Auto) [place] % (Auto) Eos % (Auto) Baso % (Auto) Gran # Lymph # (Auto) [place] # (Auto) Eos # (Auto) Baso # (Auto) Neutrophils % (Manual) Band Neutrophils % Lymphocytes % (Manual) Monocytes % (Manual) Eosinophils % (Manual) Toxic Granulation Platelet Evaluation Poikilocytosis (manual Anisocytosis (manual) PT 16.2 H INR 1.41 APTT 28.5 pCO2 pO2 HCO3 ABG pH ABG Total CO2 ABG O2 Saturation ABG Base Excess ABG Potassium VBG pH VBG pCO2 VBG HCO3 VBG Total CO2 VBG O2 Sat (Calc) VBG Base Excess VBG Potassium Glucose Lactate FiO2 Pressure Support Inspiratory BiPAP Sodium 137 Potassium 4.6 Chloride 98 Carbon Dioxide 26 Anion Gap 17 BUN 55 H Creatinine 1.6 H Est GFR ( Amer) 52 Est GFR (Non-Af Amer) 43 Random Glucose 119 H Calcium 8.9 Phosphorus Magnesium Total Bilirubin 1.8 H AST 22 ALT 26 Alkaline Phosphatase 116 Lactate Dehydrogenase 324 L Total Creatine Kinase < 20 L Troponin I 0.03 NT-Pro-B Natriuret Pep 6550 H Total Protein 6.6 Albumin 3.4 Globulin 3.3 Albumin/Globulin Ratio 1.0 L Arterial Blood Potassium Venous Blood Potassium Urine Color Urine Appearance Urine pH Ur Specific [place] Urine Protein Urine Glucose (UA) Urine Ketones Urine Blood Urine Nitrate Urine Bilirubin Urine Urobilinogen Ur Leukocyte Esterase Urine RBC Urine WBC Ur Epithelial Cells Amorphous Sediment Urine Bacteria Fine Granular Casts Coarse Granular Casts Urine Other 03/11/18 03/11/18 03/12/18 21:30 23:20 01:30 WBC RBC Hgb Hct MCV MCH MCHC RDW Plt Count MPV Gran % Lymph % (Auto) [place] % (Auto) Eos % (Auto) Baso % (Auto) Gran # Lymph # (Auto) [place] # (Auto) Eos # (Auto) Baso # (Auto) Neutrophils % (Manual) Band Neutrophils % Lymphocytes % (Manual) Monocytes % (Manual) Eosinophils % (Manual) Toxic Granulation Platelet Evaluation Poikilocytosis (manual Anisocytosis (manual) PT INR APTT pCO2 38 pO2 57 H 52.0 L 36 HCO3 23.0 ABG pH 7.39 ABG Total CO2 24.2 ABG O2 Saturation 88.8 L ABG Base Excess -1.7 ABG Potassium 4.3 VBG pH 7.37 7.30 L VBG pCO2 47.0 57.0 VBG HCO3 27.2 28.0 VBG Total CO2 28.6 H 29.7 H VBG O2 Sat (Calc) 91.0 H 64.6 VBG Base Excess 1.3 0.4 VBG Potassium 4.5 4.4 Glucose 115 H 119 H 120 H Lactate 2.2 H 2.5 H 2.5 H FiO2 21.0 28.0 21.0 Pressure Support Inspiratory BiPAP Sodium 135.0 136.0 136.0 Potassium Chloride 98.0 99.0 98.0 Carbon Dioxide Anion Gap BUN Creatinine Est GFR ( Amer) Est GFR (Non-Af Amer) Random Glucose Calcium Phosphorus Magnesium Total Bilirubin AST ALT Alkaline Phosphatase Lactate Dehydrogenase Total Creatine Kinase Troponin I NT-Pro-B Natriuret Pep Total Protein Albumin Globulin Albumin/Globulin Ratio Arterial Blood Potassium 4.3 Venous Blood Potassium 4.5 4.4 Urine Color Urine Appearance Urine pH Ur Specific [place] Urine Protein Urine Glucose (UA) Urine Ketones Urine Blood Urine Nitrate Urine Bilirubin Urine Urobilinogen Ur Leukocyte Esterase Urine RBC Urine WBC Ur Epithelial Cells Amorphous Sediment Urine Bacteria Fine Granular Casts Coarse Granular Casts Urine Other 03/12/18 03/12/18 03/12/18 05:20 05:20 06:00 WBC 18.5 H RBC 4.20 Hgb 11.1 L Hct 35.5 L MCV 84.5 MCH 26.4 MCHC 31.3 RDW 15.9 H Plt Count 187 MPV 10.4 Gran % 90.6 H Lymph % (Auto) 3.0 L Glasscock % (Auto) 6.3 H Eos % (Auto) 0.0 L Baso % (Auto) 0.1 Gran # 16.71 H Lymph # (Auto) 0.6 L [place]cock # (Auto) 1.2 H Eos # (Auto) 0.0 Baso # (Auto) 0.01 Neutrophils % (Manual) 85 H Band Neutrophils % 6 H Lymphocytes % (Manual) 4 L Monocytes % (Manual) 4 Eosinophils % (Manual) 1 Toxic Granulation Slight Platelet Evaluation Normal Poikilocytosis (manual Slight Anisocytosis (manual) Slight PT INR APTT pCO2 40 pO2 83.0 HCO3 25.9 ABG pH 7.42 ABG Total CO2 27.1 ABG O2 Saturation 98.0 ABG Base Excess 1.3 ABG Potassium 3.7 VBG pH VBG pCO2 VBG HCO3 VBG Total CO2 VBG O2 Sat (Calc) VBG Base Excess VBG Potassium Glucose 119 H Lactate 1.4 FiO2 40.0 Pressure Support 6 Inspiratory BiPAP 12 Sodium 138 141.0 Potassium 4.6 Chloride 100 107.0 Carbon Dioxide 28 Anion Gap 15 BUN 54 H Creatinine 1.5 Est GFR ( Amer) 56 Est GFR (Non-Af Amer) 47 Random Glucose 122 H Calcium 8.8 Phosphorus 3.8 Magnesium 2.3 H Total Bilirubin 1.6 H AST 20 ALT 27 Alkaline Phosphatase 109 Lactate Dehydrogenase Total Creatine Kinase Troponin I 0.06 D NT-Pro-B Natriuret Pep Total Protein 6.5 Albumin 3.3 Globulin 3.2 Albumin/Globulin Ratio 1.0 L Arterial Blood Potassium 3.7 Venous Blood Potassium Urine Color Urine Appearance Urine pH Ur Specific [place] Urine Protein Urine Glucose (UA) Urine Ketones Urine Blood Urine Nitrate Urine Bilirubin Urine Urobilinogen Ur Leukocyte Esterase Urine RBC Urine WBC Ur Epithelial Cells Amorphous Sediment Urine Bacteria Fine Granular Casts Coarse Granular Casts Urine Other 03/12/18 09:00 WBC RBC Hgb Hct MCV MCH MCHC RDW Plt Count MPV Gran % Lymph % (Auto) [place] % (Auto) Eos % (Auto) Baso % (Auto) Gran # Lymph # (Auto) [place] # (Auto) Eos # (Auto) Baso # (Auto) Neutrophils % (Manual) Band Neutrophils % Lymphocytes % (Manual) Monocytes % (Manual) Eosinophils % (Manual) Toxic Granulation Platelet Evaluation Poikilocytosis (manual Anisocytosis (manual) PT INR APTT pCO2 pO2 HCO3 ABG pH ABG Total CO2 ABG O2 Saturation ABG Base Excess ABG Potassium VBG pH VBG pCO2 VBG HCO3 VBG Total CO2 VBG O2 Sat (Calc) VBG Base Excess VBG Potassium Glucose Lactate FiO2 Pressure Support Inspiratory BiPAP Sodium Potassium Chloride Carbon Dioxide Anion Gap BUN Creatinine Est GFR ( Amer) Est GFR (Non-Af Amer) Random Glucose Calcium Phosphorus Magnesium Total Bilirubin AST ALT Alkaline Phosphatase Lactate Dehydrogenase Total Creatine Kinase Troponin I NT-Pro-B Natriuret Pep Total Protein Albumin Globulin Albumin/Globulin Ratio Arterial Blood Potassium Venous Blood Potassium Urine Color Light brown Urine Appearance Cloudy Urine pH 5.0 Ur Specific [place] >= 1.030 Urine Protein 30 H Urine Glucose (UA) Negative Urine Ketones Trace H Urine Blood Large H Urine Nitrate Negative Urine Bilirubin Moderate H Urine Urobilinogen 1.0 H Ur Leukocyte Esterase Trace H Urine RBC Tntc H Urine WBC 15 - 20 H Ur Epithelial Cells 0 - 2 Amorphous Sediment Moderate Urine Bacteria Many Fine Granular Casts 0 - 2 Coarse Granular Casts Small Urine Other Uyeast Assessment & Plan - Assessment and Plan (Free Text) Assessment: 67 year old male with history of metastatic lung cancer currently receiving Opdivo,alcoholism and who is admitted with sepsis, hypoxemia, right pleural effusion, SAUD, shortness of breath, hyperbilirubinemia, productive cough, weakness and anorexia. The patient is sedated, lethargic. Patient and family known to me from sons previous admission. not able to come in today but she and I had lengthy discussion via phone. Goals of care and resuscitation status discussed. understands the benefits and burdens of CPR/intubation. wants to give things more time, not ready to make DNR/DNI at this time. She expressed that her has lost his will to live since their son earlier this year. I acknowledged that this was a difficult time for him and the family. I explained that her husbands health was also impacted due to sepsis and underlying lung cancer. She verbalized understanding of this. She intends to meet with me tomorrow for further goals of care conversation Time spent with family member in goals of care discussion, 30 minutes Plan: Goals of care and advance care planning Pulmonary/lung cancer/ right atelectasis, right pleural effusion: BiPap as needed, monitor chest x rays, ABG's. IR >possible thoracentisis. Sepsis: Continue Vancomycin,Doxycycline, Merrem. Ortiz cultures pending. SAUD: Continue IVF's, motor labs. Cardiology: Maintain MAP>65, Troponins WNL, Echo pending.
--- NOTE | 2018-03-12 18:13 | CARD ---
APPROVED REPORT Date of service: 03/12/2018 EXAM: Two-dimensional and M-mode echocardiogram with Doppler and color Doppler. 2D DIMENSIONS Left Atrium (2D)3.3 (1.6-4.0cm)IVSd1.4 (0.7-1.1cm) LVDd3.2 (3.9-5.9cm)PWd1.1 (0.7-1.1cm) LVDs2.4 (2.5-4.0cm)FS (%) 26.3 % LVEF (%)53.0 (>50%) M-Mode DIMENSIONS Aortic Root2.50 (2.2-3.7cm)Aortic Cusp Exc.1.60 (1.5-2.0cm) Aortic Valve AoV Peak Aguytxlf317.0cm/Aruna Peak GR.8mmHg Mitral Valve E/A ratio0.0 TDI E/Lateral E'0.0E/Medial E'0.0 Tricuspid Valve TR Peak [id number] [id number] Peak Gr.51mmHg [id number] LEFT VENTRICLE The left ventricle is normal size. There is borderline concentric left ventricular hypertrophy. Proximal septal thickening is noted. The left ventricular function is normal.EF-55-60% There is normal LV segmental wall motion. Transmitral Doppler flow pattern is Grade III-reversible restrictive diastolic dysfunction. No left ventricle thrombus noted on this study. There is no ventricular septal defect visualized. There is no left ventricular aneurysm. There is no mass noted in the left ventricle. RIGHT VENTRICLE The right ventricle is moderately dilated. There is normal right ventricular wall thickness. Systolic function of RV is moderately reduced. ATRIA The left atrium size is normal. The right atrium is borderline dilated. The interatrial septum is intact with no evidence for an atrial septal defect. AORTIC VALVE The aortic valve is thickened but opens well. The aortic valve is mildly to moderately sclerotic. There is trace aortic regurgitation. There is no aortic valvular stenosis. There is no aortic valvular vegetation. MITRAL VALVE The mitral valve is thickened but opens well. Mitral regurgitation is trace. There is no mitral valve stenosis. There is no evidence of mitral valve prolapse. TRICUSPID VALVE The tricuspid valve leaflets are thickened , but open well. There is moderate to severe tricuspid regurgitation.[id number]_61 mmof hg. There is moderate pulmonary hypertension. There is no tricuspid valve stenosis. There is no tricuspid valve prolapse or vegetation. PULMONIC VALVE The pulmonary valve is normal in structure. There is trace pulmonic valvular regurgitation. There is no pulmonic valvular stenosis. GREAT VESSELS The aortic root is normal in size. The ascending aorta is normal in size. The pulmonary artery is normal. The IVC is normal in size and collapses >50% with inspiration. PERICARDIAL EFFUSION There is no pleural effusion. There is no pericardial effusion. <Conclusion> The left ventricle is normal size. There is borderline concentric left ventricular hypertrophy. Proximal septal thickening is noted. There is borderline concentric left ventricular hypertrophy. The right ventricle is moderately dilated. Systolic function of RV is moderately reduced. There is trace aortic regurgitation. Mitral regurgitation is trace. There is moderate to severe tricuspid regurgitation.[id number]_61 mmof hg. There is moderate pulmonary hypertension. The IVC is normal in size and collapses >50% with inspiration. There is no pericardial effusion. No Vegetation or thrombus noted.
--- NOTE | 2018-03-12 19:21 | CON ---
DATE OF CONSULTATION: 03/12/2018 REQUESTING PHYSICIAN: Dr. Early. REASON FOR CONSULTATION: Possible congestive heart failure. HISTORY: This is a 67-year-old man with a history of metastatic lung cancer, admitted with worsening dyspnea, cough, and weakness. His chest x-ray showed a complete opacification of his right lung. He was placed on BiPAP for ventilatory support. He is seen in bed in the TCU. He had received some sedation earlier and is currently in wrist restraints. He is unable to give any further history. The rest of the history is obtained via the chart. 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 He has a history of previous treatments of chemotherapy and radiation and also has a history of anxiety and alcohol abuse in the past. CURRENT MEDICATIONS: Include Cymbalta, doxycycline, albuterol, meropenem, gabapentin, Protonix, Toprol-XL, and vancomycin. ALLERGIES: HE HAS REPORTEDLY HAD A REACTION TO PENICILLIN, AZITHROMYCIN,AND KETAMINE IN THE PAST. The rest of the history is basically unobtainable because of his condition. PHYSICAL EXAMINATION: GENERAL: He is a chronically ill-appearing, middle-aged man. VITAL SIGNS: His blood pressure is 140/90 with a pulse of 110 and sinus, respirations are 16. He is afebrile. HEENT: BiPAP mask is in place. NECK: JVD, unable to appreciate. CHEST: Absent breath sounds on the right. Extensive rhonchi in the left. HEART: PMI displaced laterally with systolic murmur in the left sternal border. The rhythm is tachycardic. ABDOMEN: Soft with normoactive bowel sounds. EXTREMITIES: No edema. Some muscle atrophy noted. PSYCHIATRIC: Unable to assess. NEUROLOGIC: Unable to assess. DIAGNOSTIC DATA: Potassium 4.6, BUN and creatinine 54 and 1.5, glucose 122. White count of 18.5, hemoglobin and hematocrit are 11.1 and 35.5 with a platelet count of 187,000. Recent blood gas showed pH of 7.42, pCO2 of 40, and pO2 of 83. Bilirubin is 1.6. AST and ALT are 20 and 27. Troponin is 0.06. Electrocardiogram reveals sinus tachycardia with possible lateral ischemic changes. Chest x-ray reveals opacification of the right hemithorax. IMPRESSION: 1. Respiratory distress, appears mainly due to endobronchial obstruction and pulmonary issues. May have a component of cardiac ischemia given abnormal electrocardiogram; however, this is likely his main problem at the present time. 2. Rest of the problems as noted. RECOMMENDATIONS: Continued supportive care is advised, and serial cardiac enzymes will be obtained. An echocardiogram will be obtained as well. Obviously, comfort care and avoidance of aggressive measures at this time appear most appropriate for him. I will be happy to follow along and make further recommendations as appropriate. Thank you for this consultation. Tony Singh MD
--- NOTE | 2018-03-13 01:35 | CON ---
DATE: 03/12/2018 ONCOLOGY CONSULTATION NOTE LOCATION: The patient is in ICU, bed 6. 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 The patient reported significant history of having metastatic carcinoma, subtype adenocarcinoma with mets to the lung, liver, and bone. He had chemo and radiation therapies in the past and he has been in remission in the past and more recently had been placed on Keytruda, which is an immunotherapy therapy for the patient's who has progressive disease or has been placed on maintenance after stabilization of the disease. The patient reports that over the past 2 weeks, his shortness of breath has been associated with worsening orthopnea, productive cough, dark phlegm, more than 20-pound weight loss with decreased appetite, nausea, and 2 days of worsening bilateral lower extremity edema. The patient also reports worsening fatigue, lethargy, and weakness. He has had intermittent periods of heaviness in his chest and mild chest pains. The patient also has been having increasing crusting/discharge and burning from both his eyes over the past two weeks. He reports he feels very thirsty. He has also reported rash on both of his buttocks. PAST MEDICAL HISTORY: Significant for hypertension, EtOH abuse along with anxiety. The patient denies any fevers, chills, night sweats, significant abdominal pain, urinary discomfort, hematuria, numbness, or tingling. REVIEW OF SYSTEMS: A 12-point review of systems is otherwise negative except for what is mentioned in the HPI. FAMILY MEDICAL DOCTOR: Dr. Guardado. His pharmacy is [facility]. MEDICATIONS: Reviewing from what is mentioned in the EMR. The patient has been on naproxen, omeprazole, duloxetine, Ventolin, metoprolol, diazepam, gabapentin along with his prior chemotherapy appears to be also listed here. It appears the patient has been on Abraxane, Taxotere, Taxol along with pain medicines consisting of OxyContin, Percocet, along with antinausea medicines consisting of Kytril, folic acid, and Lomotil. PAST SURGICAL HISTORY: Significant for liver ablation. ALLERGIES: THE PATIENT IS ALLERGIC TO KETAMINE, ZITHROMAX, AND PENICILLIN. HABITS: The patient quit smoking about 30 years ago. He still drinks one to two drinks nightly. He denies any use of illicit drugs. PHYSICAL EXAMINATION: GENERAL: The patient is very ill looking, is able to respond to my questions verbally. He remembered me since his , Laura used to work with me 15 to 20 years ago. HEENT: Head is normocephalic and atraumatic. The patient has poor dentition. Conjunctivae are pale. Sclerae are anicteric. Examination of the oropharynx reveals tongue to be coated. No ulcerations are noted. The patient has purulent discharge from both eyes bilaterally, which appears to be slightly improved from what the admission notes have described. LUNGS: Reveal decreased breath sounds on the right side posteriorly. Left lung, middle, and lower lung khan reveal decreased rhonchi and rales. CARDIOVASCULAR SYSTEM: Reveals tachycardic with S1 and S2 without any significant murmurs. ABDOMEN: Soft and nontender. No rebound, rigidity, or guarding was noted. EXTREMITIES: Reveal 1+ pitting edema of both lower extremity. NEUROLOGIC: Reveals higher functions to be normal. The patient is at least oriented to time and place. He was able to recognize me and remember me from a prior interactions with his family. VITAL SIGNS: The patient's vital signs were noted. T max was 97.8, pulse was 108, respirations 20, blood pressure 149/79, and pulse ox is 100% on current oxygen. LABORATORY DATA: Reviewed. White count of 19.1, hemoglobin 11.3, hematocrit 35, and platelet count of 195,000. Chemistry revealed a sodium of 137, K is 4.6, chloride 98, CO2 of 26, BUN of 55, creatinine of 1.6, and blood sugar of 119. Blood gas revealed pCO2 of 40, pO2 of 83, bicarb of 25.9, and pH of 7.42. Coags are relatively within normal limits. Platelet count appears to be adequate. CT of the chest was reviewed. The patient had significant right-sided pleural effusion with an endobronchial lesion seen in the right lung with an endobronchial obstruction. MEDICATIONS: The patient's medications were reviewed and he is on ciprofloxacin eyedrops to the eyes for his infection. He is on Cymbalta 60 mg daily. He is on doxycycline 100 mg IV piggyback every 12 hours. He is on DuoNeb 3 mL every 2 hours. He is on meropenem 1 g IV every 12 hours. He is on Neurontin 300 t.i.d. Protonix 40 mg daily. He is on IV fluids at 30 mL an hour as KVO. He is on metoprolol 100 mg p.o. daily. Vancomycin 1 g IV daily. Procalcitonin is pending. ASSESSMENT, NOTES, AND PLAN: A 67-year-old white male with a diagnosis of stage IV metastatic [id number] carcinoma of the lung. We will try to obtain prior treatment records after speaking to the family specifically the . In the meantime, right now, the most prudent thing will be to get a him clerk involved. The patient may need to have a fluid tapped and question would be whether the patient would be benefit from also an endobronchial evaluation to check for endobronchial obstruction with complete atelectasis on the right side. We will speak to Dr. Read who has formally consulted to help us out in management of this patient. Fluid analysis will also help us in further management of this patient whether the patient needs a PleurX catheter for ongoing management. If the patient has been on Keytruda, then adding a drug through the Keytruda would be most appropriate at this point in time specifically if he has had prior chemo regimens in the past. Dual therapy with immunotherapy is not unreasonable at this point. We will check with the family as to what the thought processes they have as far as palliative care versus ongoing treatment as far as treatment is concerned. Palliative care nurses have already seen him and I will speak to Litzy Hahn as well to get her input after interaction with the family. We will follow up with you and make appropriate recommendations. Thanking you for allowing me to participate in the management of this patient . Festus Vaughn MD
[2018-03-13] MEDS: Sodium Chloride 0.9% 1,000 ML IV SCH (02:35)
[2018-03-13] MEDS: Ciprofloxacin 0.3% OPTH SOLN OU SCH ×4 (04:59→18:03)
[2018-03-13 06:45] LABS: BASO # 0.01 K/mm3 (0.0-2.0); BASO % 0.1 % (0.0-3.0); EOS % 0.2 % (1.5-5.0); GRAN # 12.74 (1.4-6.5); GRAN % 88.2 % (50.0-68.0); LYMPH # 1.2 (1.2-3.4); LYMPH % 8.1 % (22.0-35.0); MEAN CELL VOLUME 85.5 fl (80.0-105.0); MEAN CORPUSCULAR HEMOGLOBIN 26.8 pg (25.0-35.0); MEAN CORPUSCULAR HGB CONC 31.3 g/dl (31.0-37.0); MEAN PLATELET VOLUME 10.4 fl (7.0-11.0); MONO # 0.5 (0.1-0.6); MONO % 3.4 % (1.0-6.0); RBC 3.73 10^6/uL (3.5-6.1); RED CELL DISTRIBUTION WIDTH 16.1 % (11.5-14.5); WHITE BLOOD COUNT 14.4 10^3/uL (4.5-11.0)
[2018-03-13 07:11] LABS: ALBUMIN 2.8 g/dL (3.0-4.8); ALT/SGPT 29 U/L (7-56); AST/SGOT 27 U/L (17-59); BLOOD UREA NITROGEN 40 mg/dL (7-21); CALCIUM 8.5 mg/dL (8.4-10.5); GFR NON-AFRICAN AMERICAN > 60
--- NOTE | 2018-03-13 08:08 | CP.CCUPN ---
<Azar Chen - Last Filed: 03/13/18 11:46> CCU Subjective - Physician Review Subjective (Free Text): 03/13/18 11:37 Carlos Chen PGY2 - ICU Progress Note Patient seen and examined this AM off of BiPAP. Patient reports tolerated well overnight without BiPAP and that respiratory effort is stable at this time. He is speaking in full sentences at time of interview. He complains of shortness of breath. Patient indicates he would like to have his phone and to speak to his . He denies chest pain, abdominal pain, weakness, numbness, nausea, vomiting, fever, chills, diarrhea, constipation. CCU Objective - Vital Signs / Intake & Output Vital Signs (Last 4 hours): Vital Signs Pulse 03/13/18 05:08 125 H Intake and Output (Last 8hrs): Intake & Output 03/12/18 03/13/18 03/13/18 22:59 06:59 14:59 Intake Total 450 Output Total 520 200 Balance -520 250 Intake: IV 450 Left Subclavian 450 Oral 0 Output: Urine 520 200 Urethral (Hathaway) 520 200 Other: # Bowel Movements 0 - Physical Exam Head: Positive for: Atraumatic, Normocephalic Pupils: Positive for: PERRL Extroacular Muscles: Positive for: EOMI Conjunctiva: Positive for: Normal Mouth: Positive for: Moist Mucous Membranes Neck: Positive for: Normal Range of Motion Respiratory/Chest: Positive for: Decreased Breath Sounds (Decreased breath sounds bilaterally). Negative for: Respiratory Distress, Accessory Muscle Use Cardiovascular: Positive for: Regular Rate and Rhythm, Normal S1, S2. Negative for: Murmurs Abdomen: Negative for: Tenderness, Distention, Peritoneal Signs Back: Positive for: Normal Inspection Upper Extremity: Positive for: Normal Inspection. Negative for: Cyanosis, Edema Lower Extremity: Positive for: Edema (1+ pitting edema bilaterally) Neurological: Positive for: GCS=15, CN II-XII Intact, Speech Normal Skin: Positive for: Warm, Dry, Normal Color. Negative for: Rashes Psychiatric: Positive for: Alert, Oriented x 3, Normal Insight, Normal Concentration - Medications Active Medications: Active Medications Generic Name Dose Route Start Last Admin Trade Name Freq PRN Reason Stop Dose Admin Albuterol/Ipratropium 3 ml 03/12/18 02:18 03/12/18 07:42 Duoneb 3 Mg/0.5 Mg (3 Ml) Ud IH 3 ml Q2H PRN Administration Shortness of Breath Ciprofloxacin 2 drop 03/12/18 12:00 03/13/18 04:59 Ciloxan 0.3% Ophth Soln OU 03/18/18 06:00 2 drop Q6 DAVID Administration Duloxetine HCl 60 mg 03/12/18 10:00 03/12/18 09:43 Cymbalta PO Not Given DAILY DAVID Gabapentin 300 mg 03/12/18 10:00 03/12/18 19:29 Neurontin PO Not Given TID DAVID Protocol Sodium Chloride 1,000 mls @ 30 mls/hr 03/12/18 02:00 03/13/18 02:35 Sodium Chloride 0.9% IV 30 mls/hr .Q24H DAVID Administration Meropenem 1 gm in 50 mls @ 12.5 mls/hr 03/12/18 10:00 03/12/18 22:00 Merrem Iv 1 Gm Premix IVPB 03/21/18 10:01 12.5 mls/hr Q12 DAVID Administration Protocol Doxycycline Hyclate 100 mg/ 100 mls @ 100 mls/hr 03/12/18 10:00 03/12/18 22:00 Sodium Chloride IVPB 03/21/18 10:01 100 mls/hr Q12 DAVID Administration Protocol Vancomycin HCl 1 gm in 250 mls @ 167 mls/hr 03/12/18 10:00 03/12/18 09:52 Vancomycin 1gm IVPB 03/21/18 10:01 167 mls/hr DAILY DAVID Administration Protocol Metoprolol Succinate 100 mg 03/12/18 10:00 03/12/18 09:47 Toprol Xl PO Not Given DAILY DAVID Pantoprazole Sodium 40 mg 03/12/18 10:00 03/12/18 09:54 Protonix Inj IVP 40 mg DAILY DAVID Administration - Patient Studies Lab Studies: Microbiology Studies 03/11/18 21:30 Blood Culture - Preliminary Blood NO GROWTH AFTER 24 HOURS 03/11/18 21:00 Blood Culture - Preliminary Blood NO GROWTH AFTER 24 HOURS Lab Studies 03/13/18 03/13/18 03/12/18 Range/Units 05:38 05:38 15:15 WBC 14.4 H D (4.5-11.0) 10^3/uL RBC 3.73 (3.5-6.1) 10^6/uL Hgb 10.0 L (14.0-18.0) g/dL Hct 31.9 L (42.0-52.0) % MCV 85.5 (80.0-105.0) fl MCH 26.8 (25.0-35.0) pg MCHC 31.3 (31.0-37.0) g/dl RDW 16.1 H (11.5-14.5) % Plt Count 156 (120.0-450.0) 10^3/uL MPV 10.4 (7.0-11.0) fl Gran % 88.2 H (50.0-68.0) % Lymph % (Auto) 8.1 L (22.0-35.0) % [place] % (Auto) 3.4 (1.0-6.0) % Eos % (Auto) 0.2 L (1.5-5.0) % Baso % (Auto) 0.1 (0.0-3.0) % Gran # 12.74 H (1.4-6.5) Lymph # (Auto) 1.2 (1.2-3.4) [place] # (Auto) 0.5 (0.1-0.6) Eos # (Auto) 0.0 (0.0-0.7) Baso # (Auto) 0.01 (0.0-2.0) K/mm3 Sodium 143 (132-148) mmol/L Potassium 4.0 (3.6-5.0) mmol/L Chloride 105 (98-107) mmol/L Carbon Dioxide 29 (21-33) mmol/L Anion Gap 13 (10-20) BUN 40 H (7-21) mg/dL Creatinine 1.1 (0.8-1.5) mg/dl Est GFR ( Amer) > 60 Est GFR (Non-Af Amer) > 60 Random Glucose 89 (70-110) mg/dL Hemoglobin A1c (4.2-6.5) % Calcium 8.5 (8.4-10.5) mg/dL Total Bilirubin 1.1 (0.2-1.3) mg/dL AST 27 (17-59) U/L ALT 29 (7-56) U/L Alkaline Phosphatase 102 (38-126) U/L Troponin I 0.05 ng/mL Total Protein 5.8 (5.8-8.3) g/dL Albumin 2.8 L (3.0-4.8) g/dL Globulin 3.0 gm/dL Albumin/Globulin Ratio 1.0 L (1.1-1.8) Procalcitonin (0.19-0.49) NG/ML Urine Color (YELLOW) Urine Appearance (CLEAR) Urine pH (4.7-8.0) Ur Specific [place] (1.005-1.035) Urine Protein (<30 mg/dL) mg/dL Urine Glucose (UA) (NEGATIVE) mg/dL Urine Ketones (NEGATIVE) mg/dL Urine Blood (NEGATIVE) Urine Nitrate (NEGATIVE) Urine Bilirubin (NEGATIVE) Urine Urobilinogen (<1 E.U./dL) E.U./dL Ur Leukocyte Esterase (NEGATIVE) Good/uL Urine RBC (0-2) /hpf Urine WBC (0-6) /hpf Ur Epithelial Cells (0-5) /hpf Amorphous Sediment (NONE) /hpf Urine Bacteria (NONE) /hpf Fine Granular Casts (NONE) /hpf Coarse Granular Casts (NONE) /hpf Urine Other /hpf 03/12/18 03/12/18 03/11/18 Range/Units 10:30 09:00 20:55 WBC (4.5-11.0) 10^3/uL RBC (3.5-6.1) 10^6/uL Hgb (14.0-18.0) g/dL Hct (42.0-52.0) % MCV (80.0-105.0) fl MCH (25.0-35.0) pg MCHC (31.0-37.0) g/dl RDW (11.5-14.5) % Plt Count (120.0-450.0) 10^3/uL MPV (7.0-11.0) fl Gran % (50.0-68.0) % Lymph % (Auto) (22.0-35.0) % [place] % (Auto) (1.0-6.0) % Eos % (Auto) (1.5-5.0) % Baso % (Auto) (0.0-3.0) % Gran # (1.4-6.5) Lymph # (Auto) (1.2-3.4) [place] # (Auto) (0.1-0.6) Eos # (Auto) (0.0-0.7) Baso # (Auto) (0.0-2.0) K/mm3 Sodium (132-148) mmol/L Potassium (3.6-5.0) mmol/L Chloride (98-107) mmol/L Carbon Dioxide (21-33) mmol/L Anion Gap (10-20) BUN (7-21) mg/dL Creatinine (0.8-1.5) mg/dl Est GFR ( Amer) Est GFR (Non-Af Amer) Random Glucose (70-110) mg/dL Hemoglobin A1c 5.7 (4.2-6.5) % Calcium (8.4-10.5) mg/dL Total Bilirubin (0.2-1.3) mg/dL AST (17-59) U/L ALT (7-56) U/L Alkaline Phosphatase (38-126) U/L Troponin I ng/mL Total Protein (5.8-8.3) g/dL Albumin (3.0-4.8) g/dL Globulin gm/dL Albumin/Globulin Ratio (1.1-1.8) Procalcitonin 1.69 H (0.19-0.49) NG/ML Urine Color Light brown (YELLOW) Urine Appearance Cloudy (CLEAR) Urine pH 5.0 (4.7-8.0) Ur Specific [place] >= 1.030 (1.005-1.035) Urine Protein 30 H (<30 mg/dL) mg/dL Urine Glucose (UA) Negative (NEGATIVE) mg/dL Urine Ketones Trace H (NEGATIVE) mg/dL Urine Blood Large H (NEGATIVE) Urine Nitrate Negative (NEGATIVE) Urine Bilirubin Moderate H (NEGATIVE) Urine Urobilinogen 1.0 H (<1 E.U./dL) E.U./dL Ur Leukocyte Esterase Trace H (NEGATIVE) Good/uL Urine RBC Tntc H (0-2) /hpf Urine WBC 15 - 20 H (0-6) /hpf Ur Epithelial Cells 0 - 2 (0-5) /hpf Amorphous Sediment Moderate (NONE) /hpf Urine Bacteria Many (NONE) /hpf Fine Granular Casts 0 - 2 (NONE) /hpf Coarse Granular Casts Small (NONE) /hpf Urine Other Uyeast /hpf Laboratory Results - last 24 hr 03/11/18 03/12/18 03/12/18 20:55 09:00 10:30 WBC RBC Hgb Hct MCV MCH MCHC RDW Plt Count MPV Gran % Lymph % (Auto) [place] % (Auto) Eos % (Auto) Baso % (Auto) Gran # Lymph # (Auto) [place] # (Auto) Eos # (Auto) Baso # (Auto) Sodium Potassium Chloride Carbon Dioxide Anion Gap BUN Creatinine Est GFR ( Amer) Est GFR (Non-Af Amer) Random Glucose Hemoglobin A1c 5.7 Calcium Total Bilirubin AST ALT Alkaline Phosphatase Troponin I Total Protein Albumin Globulin Albumin/Globulin Ratio Procalcitonin 1.69 H Urine Color Light brown Urine Appearance Cloudy Urine pH 5.0 Ur Specific [place] >= 1.030 Urine Protein 30 H Urine Glucose (UA) Negative Urine Ketones Trace H Urine Blood Large H Urine Nitrate Negative Urine Bilirubin Moderate H Urine Urobilinogen 1.0 H Ur Leukocyte Esterase Trace H Urine RBC Tntc H Urine WBC 15 - 20 H Ur Epithelial Cells 0 - 2 Amorphous Sediment Moderate Urine Bacteria Many Fine Granular Casts 0 - 2 Coarse Granular Casts Small Urine Other Uyeast 03/12/18 03/13/18 03/13/18 15:15 05:38 05:38 WBC 14.4 H D RBC 3.73 Hgb 10.0 L Hct 31.9 L MCV 85.5 MCH 26.8 MCHC 31.3 RDW 16.1 H Plt Count 156 MPV 10.4 Gran % 88.2 H Lymph % (Auto) 8.1 L [place] % (Auto) 3.4 Eos % (Auto) 0.2 L Baso % (Auto) 0.1 Gran # 12.74 H Lymph # (Auto) 1.2 [place] # (Auto) 0.5 Eos # (Auto) 0.0 Baso # (Auto) 0.01 Sodium 143 Potassium 4.0 Chloride 105 Carbon Dioxide 29 Anion Gap 13 BUN 40 H Creatinine 1.1 Est GFR ( Amer) > 60 Est GFR (Non-Af Amer) > 60 Random Glucose 89 Hemoglobin A1c Calcium 8.5 Total Bilirubin 1.1 AST 27 ALT 29 Alkaline Phosphatase 102 Troponin I 0.05 Total Protein 5.8 Albumin 2.8 L Globulin 3.0 Albumin/Globulin Ratio 1.0 L Procalcitonin Urine Color Urine Appearance Urine pH Ur Specific [place] Urine Protein Urine Glucose (UA) Urine Ketones Urine Blood Urine Nitrate Urine Bilirubin Urine Urobilinogen Ur Leukocyte Esterase Urine RBC Urine WBC Ur Epithelial Cells Amorphous Sediment Urine Bacteria Fine Granular Casts Coarse Granular Casts Urine Other Radiology Impressions: Radiology Impressions Chest X-Ray 03/11/18 20:28 IMPRESSION: There is complete opacification of the right hemithorax. There is no mediastinal shift Chest CT 03/11/18 23:21 IMPRESSION: There is complete atelectasis of the right lung with endobronchial obstruction. There is a large right pleural effusion. Chest X-Ray 03/12/18 06:00 IMPRESSION: There is complete opacification of the right lung. This is unchanged. 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 Patient admitted to ICU for hypoxemia respiratory failure with right sided pleural effusion. Patient awaiting thera peutic tap from IR. Plan: Neruo - AAOx3 today, less somnolent - Continue to monitor and evaluate neuro status Cardio Hx HTN - Maintain MAP >65 - Holding morning metoprolol as patient normotensive CHF - Patient with elevated BNP(6550), no baseline to draw from - Bilateral edema, normotensive, hx of orthopnea(likely due to increasing pleural effusion) - Echocardiogram: EF 53%, no pericardial effusion, LV normal size, proximal septal thickening, systolic function of RV is moderately reduced, RVSP 61, moderate pulm HTN Indeterminate trops - Trop 0.03, 0.06, .05 trending downward - EKG showing sinus tachycardia, no prevalent ST wave depression/elevation Cardio consulted with following recs to continue supportive care, Pulmonary Hx of Lung adenocarcinoma Right sided pleural effusion, multiloculated - CXR with right sided white out - CT chest with complete atelectasis of the right lung with endobronchial obstruction, large right pleural effusion - Patient placed on BiPAP overnight, ABG improved, BiPAP discontinued today, monitor respiratory status - Vanc, Doxy, Merrem for pna coverage - IR consulted for therapeutic thoracentesis, on schedule for tap today - Palliative care consulted, discussions with family and patient point towards full code - Heme/Onc consulted and following patient GI - Dietary supplementation - Awaiting swallow evaluation at this point - Protonix IV for GI ppx RENAL - Maintain euvolemia, replace lytes as necessary HEME/ONC Stage IV Lung adenocarcinoma - Heme/Onc following Luekocytosis - Etiology pneumonia vs. reactionary vs. malignancy ID Right sided pleural effusion/pneumonia Sepsis on admission with elevated Lactate, tachycardia, leukocytosis - Vanc, Aztreonam in ED, limited fluid challenge secondary to acute CHF picture - ID consulted and following DVT/GI PPX - Heparin - Protonix Patient seen, case and plan discussed with attending <Angelito Li - Last Filed: 03/13/18 13:24> CCU Objective - Vital Signs / Intake & Output Vital Signs (Last 4 hours): Vital Signs Temp Pulse Resp BP Pulse Ox 03/13/18 12:00 98 F 140/91 H 03/13/18 11:59 131 H 24 83 L 03/13/18 11:01 121 H 24 127/67 82 L 03/13/18 11:00 113 H 26 H 94 L 03/13/18 10:00 98 H 23 121/73 98 03/13/18 09:51 135 H 141/59 L Intake and Output (Last 8hrs): Intake & Output 03/12/18 03/13/18 03/13/18 22:59 06:59 14:59 Intake Total 450 Output Total 520 200 Balance -520 250 Intake: IV 450 Left Subclavian 450 Oral 0 Output: Urine 520 200 Urethral (Hathaway) 520 200 Other: # Bowel Movements 0 - Medications Active Medications: Active Medications Generic Name Dose Route Start Last Admin Trade Name Freq PRN Reason Stop Dose Admin Acetylcysteine 4 ml 03/13/18 20:00 Acetylcysteine 20% IH BIDRESP DAVID Albuterol/Ipratropium 3 ml 03/12/18 02:18 03/12/18 07:42 Duoneb 3 Mg/0.5 Mg (3 Ml) Ud IH 3 ml Q2H PRN Administration Shortness of Breath Budesonide 0.5 mg 03/13/18 20:00 Pulmicort Respules IH [id number] DAVID Ciprofloxacin 2 drop 03/12/18 12:00 03/13/18 13:03 Ciloxan 0.3% Ophth Soln OU 03/18/18 06:00 2 drop Q6 DAVID Administration Doxycycline Hyclate 100 mg 03/13/18 22:00 Doryx PO Q12 DAVID Protocol Duloxetine HCl 60 mg 03/12/18 10:00 03/13/18 09:00 Cymbalta PO Not Given DAILY [facility] Enoxaparin Sodium 40 mg 03/14/18 10:00 Lovenox SC DAILY DAVID Protocol Gabapentin 300 mg 03/12/18 10:00 03/13/18 13:04 Neurontin PO Not Given TID [facility] Protocol Sodium Chloride 1,000 mls @ 30 mls/hr 03/12/18 02:00 03/13/18 02:35 Sodium Chloride 0.9% IV 30 mls/hr .Q24H DAVID Administration Meropenem 1 gm in 50 mls @ 12.5 mls/hr 03/12/18 10:00 03/13/18 08:59 Merrem Iv 1 Gm Premix IVPB 03/21/18 10:01 12.5 mls/hr Q12 DAVID Administration Protocol Levalbuterol HCl 0.63 mg 03/13/18 14:00 Xopenex IH TIDRESP [facility] Methylprednisolone 40 mg 03/13/18 22:00 Solu-Medrol IVP Q12 [facility] Metoprolol Succinate 100 mg 03/12/18 10:00 03/13/18 09:05 Toprol Xl PO Not Given DAILY [facility] Pantoprazole Sodium 40 mg 03/12/18 10:00 03/13/18 09:00 Protonix Inj IVP 40 mg DAILY DAVID Administration - Patient Studies Lab Studies: Microbiology Studies 03/11/18 21:30 Blood Culture - Preliminary Blood NO GROWTH AFTER 24 HOURS 03/11/18 21:00 Blood Culture - Preliminary Blood NO GROWTH AFTER 24 HOURS Lab Studies 03/13/18 03/13/18 03/12/18 Range/Units 05:38 05:38 15:15 WBC 14.4 H D (4.5-11.0) 10^3/uL RBC 3.73 (3.5-6.1) 10^6/uL Hgb 10.0 L (14.0-18.0) g/dL Hct 31.9 L (42.0-52.0) % MCV 85.5 (80.0-105.0) fl MCH 26.8 (25.0-35.0) pg MCHC 31.3 (31.0-37.0) g/dl RDW 16.1 H (11.5-14.5) % Plt Count 156 (120.0-450.0) 10^3/uL MPV 10.4 (7.0-11.0) fl Gran % 88.2 H (50.0-68.0) % Lymph % (Auto) 8.1 L (22.0-35.0) % [place] % (Auto) 3.4 (1.0-6.0) % Eos % (Auto) 0.2 L (1.5-5.0) % Baso % (Auto) 0.1 (0.0-3.0) % Gran # 12.74 H (1.4-6.5) Lymph # (Auto) 1.2 (1.2-3.4) [place] # (Auto) 0.5 (0.1-0.6) Eos # (Auto) 0.0 (0.0-0.7) Baso # (Auto) 0.01 (0.0-2.0) K/mm3 Sodium 143 (132-148) mmol/L Potassium 4.0 (3.6-5.0) mmol/L Chloride 105 (98-107) mmol/L Carbon Dioxide 29 (21-33) mmol/L Anion Gap 13 (10-20) BUN 40 H (7-21) mg/dL Creatinine 1.1 (0.8-1.5) mg/dl Est GFR ( Amer) > 60 Est GFR (Non-Af Amer) > 60 Random Glucose 89 (70-110) mg/dL Hemoglobin A1c (4.2-6.5) % Calcium 8.5 (8.4-10.5) mg/dL Total Bilirubin 1.1 (0.2-1.3) mg/dL AST 27 (17-59) U/L ALT 29 (7-56) U/L Alkaline Phosphatase 102 (38-126) U/L Troponin I 0.05 ng/mL Total Protein 5.8 (5.8-8.3) g/dL Albumin 2.8 L (3.0-4.8) g/dL Globulin 3.0 gm/dL Albumin/Globulin Ratio 1.0 L (1.1-1.8) Procalcitonin (0.19-0.49) NG/ML 03/12/18 03/11/18 Range/Units 10:30 20:55 WBC (4.5-11.0) 10^3/uL RBC (3.5-6.1) 10^6/uL Hgb (14.0-18.0) g/dL Hct (42.0-52.0) % MCV (80.0-105.0) fl MCH (25.0-35.0) pg MCHC (31.0-37.0) g/dl RDW (11.5-14.5) % Plt Count (120.0-450.0) 10^3/uL MPV (7.0-11.0) fl Gran % (50.0-68.0) % Lymph % (Auto) (22.0-35.0) % [place] % (Auto) (1.0-6.0) % Eos % (Auto) (1.5-5.0) % Baso % (Auto) (0.0-3.0) % Gran # (1.4-6.5) Lymph # (Auto) (1.2-3.4) [place] # (Auto) (0.1-0.6) Eos # (Auto) (0.0-0.7) Baso # (Auto) (0.0-2.0) K/mm3 Sodium (132-148) mmol/L Potassium (3.6-5.0) mmol/L Chloride (98-107) mmol/L Carbon Dioxide (21-33) mmol/L Anion Gap (10-20) BUN (7-21) mg/dL Creatinine (0.8-1.5) mg/dl Est GFR ( Amer) Est GFR (Non-Af Amer) Random Glucose (70-110) mg/dL Hemoglobin A1c 5.7 (4.2-6.5) % Calcium (8.4-10.5) mg/dL Total Bilirubin (0.2-1.3) mg/dL AST (17-59) U/L ALT (7-56) U/L Alkaline Phosphatase (38-126) U/L Troponin I ng/mL Total Protein (5.8-8.3) g/dL Albumin (3.0-4.8) g/dL Globulin gm/dL Albumin/Globulin Ratio (1.1-1.8) Procalcitonin 1.69 H (0.19-0.49) NG/ML Laboratory Results - last 24 hr 03/11/18 03/12/18 03/12/18 20:55 10:30 15:15 WBC RBC Hgb Hct MCV MCH MCHC RDW Plt Count MPV Gran % Lymph % (Auto) [place] % (Auto) Eos % (Auto) Baso % (Auto) Gran # Lymph # (Auto) [place] # (Auto) Eos # (Auto) Baso # (Auto) Sodium Potassium Chloride Carbon Dioxide Anion Gap BUN Creatinine Est GFR ( Amer) Est GFR (Non-Af Amer) Random Glucose Hemoglobin A1c 5.7 Calcium Total Bilirubin AST ALT Alkaline Phosphatase Troponin I 0.05 Total Protein Albumin Globulin Albumin/Globulin Ratio Procalcitonin 1.69 H 03/13/18 03/13/18 05:38 05:38 WBC 14.4 H D RBC 3.73 Hgb 10.0 L Hct 31.9 L MCV 85.5 MCH 26.8 MCHC 31.3 RDW 16.1 H Plt Count 156 MPV 10.4 Gran % 88.2 H Lymph % (Auto) 8.1 L [place] % (Auto) 3.4 Eos % (Auto) 0.2 L Baso % (Auto) 0.1 Gran # 12.74 H Lymph # (Auto) 1.2 [place] # (Auto) 0.5 Eos # (Auto) 0.0 Baso # (Auto) 0.01 Sodium 143 Potassium 4.0 Chloride 105 Carbon Dioxide 29 Anion Gap 13 BUN 40 H Creatinine 1.1 Est GFR ( Amer) > 60 Est GFR (Non-Af Amer) > 60 Random Glucose 89 Hemoglobin A1c Calcium 8.5 Total Bilirubin 1.1 AST 27 ALT 29 Alkaline Phosphatase 102 Troponin I Total Protein 5.8 Albumin 2.8 L Globulin 3.0 Albumin/Globulin Ratio 1.0 L Procalcitonin Radiology Impressions: Radiology Impressions Chest X-Ray 03/13/18 09:41 IMPRESSION: There is complete opacification of the right hemithorax which is unchanged Assessment/Plan - Assessment and Plan (Free Text) Plan: Patient seen and examined on rounds with resident, agree with note with following additions/exceptions: Patient is 67yo male with PMHx of Lung adenocarcinoma with mets bone, HTN, EtOH abuse, anxiety, depression who presented to [facility] for 2 week history of shortness of breath. Pt found to have large R sided pleural effusion and possible endobronchial obstruction Pt is currently off biPap, on 2LNC, awake, alert, conversive Currently afebrile, BP stable, comfortable, in NAD, o2 sat 95% on 4LNC Bedside limited US of lung demonstrates loculated R sided pleutral effusions with septations Patient with extensive pulmonary disease, and Lung Ca with mets, likely with chronic R sided pleural effusion and possible endobronchial lesion, given the lack of respiratory failure. Would proceed with thoracentesis first, as bronching the patient would requiring intubation, and difficulty getting the patient off the ventilator, Doubt mucus plugging, likely possible underlying malignancy of endobronchial entity. PNA Pleural Effusion Stage IV Lung AdenoCA EtOH abuse Recommend: - supp o2 as needed, duonebs PRN, BIPAP at night - Broad spectrum abx as per Geraldine Dias Doxy - BP control - IVF - Thoracentesis by IR - check UA, ulytes - Palliative care follow up - GI ppx - DVT ppx - Monitor in MICU
[2018-03-13] MEDS: Vancomycin 1gm in NS 250ml 1 GM/250 ML BAG IVPB SCH (08:59)
[2018-03-13] MEDS: Meropenem IV 1 gm in NS 1 GM/50 ML BAG IVPB SCH ×2 (08:59→21:10)
[2018-03-13] MEDS: Metoprolol Succinate 100 mg XL Tab PO SCH (09:05)
[2018-03-13] MEDS ORDERED: Metoprolol 1 mg/ml Inj IVP STA (09:33)
[2018-03-13] MEDS: oxyCODONE 20 mg ER Tab (oxyCONTIN) PO SCH (10:10)
--- NOTE | 2018-03-13 11:34 | RAD ---
Date of service: 03/13/2018 HISTORY: pleurL effusion COMPARISON: 03/12/2018 FINDINGS: LUNGS: There is complete opacification of the right hemithorax which is unchanged PLEURA: Large right-sided pleural effusion CARDIOVASCULAR: Aortic calcification Normal cardiac size. No pulmonary vascular congestion. OSSEOUS STRUCTURES: No significant abnormalities. VISUALIZED UPPER ABDOMEN: Normal. OTHER FINDINGS: None. IMPRESSION: There is complete opacification of the right hemithorax which is unchanged
--- NOTE | 2018-03-13 12:28 | CP.PCM.PN ---
<Sherman Rangel - Last Filed: 03/13/18 14:38> Subjective - Date & Time of Evaluation Date of Evaluation: 03/13/18 Time of Evaluation: 08:00 - Subjective Subjective: Sherman Rangel DO PGY-2: Hospitalist Progress Note Patient was seen and examined at bedside. Nurse reports patient was tachycardic and NPO given high risk of aspiration. 5 mg of Metoprolol IVP was given. Patient reports on having a cough, with some production. He reported not having an appetite. Case was discussed with ICU team. Patient is scheduled for right tho racentesis by IR today. Objective - Vital Signs/Intake and Output Vital Signs (last 24 hours): Temp Pulse Resp BP Pulse Ox 98 F 126 H 19 141/59 L 98 03/13/18 12:00 03/13/18 10:00 03/13/18 02:56 03/13/18 09:51 03/13/18 02:30 Intake and Output: 03/13/18 03/13/18 06:59 18:59 Intake Total 450 Output Total 200 Balance 250 - Medications Medications: Current Medications Acetylcysteine (Acetylcysteine 20%) 4 ml IH BIDRESP DAVID Albuterol/Ipratropium (Duoneb 3 Mg/0.5 Mg (3 Ml) Ud) 3 ml IH Q2H PRN PRN Reason: Shortness of Breath Last Admin: 03/12/18 07:42 Dose: 3 ml Budesonide (Pulmicort Respules) 0.5 mg IH [id number] DAVID Ciprofloxacin (Ciloxan 0.3% Oph Soln) 2 drop OU Q6 DAVID Stop: 03/18/18 06:00 Last Admin: 03/13/18 04:59 Dose: 2 drop Duloxetine HCl (Cymbalta) 60 mg PO DAILY [facility]ID Last Admin: 03/13/18 09:00 Dose: Not Given Enoxaparin Sodium (Lovenox) 40 mg SC DAILY DAVID; Protocol Gabapentin (Neurontin) 300 mg PO TID DAVID; Protocol Last Admin: 03/13/18 09:00 Dose: Not Given Sodium Chloride (Sodium Chloride 0.9%) 1,000 mls @ 30 mls/hr IV .Q24H DAVID Last Admin: 03/13/18 02:35 Dose: 30 mls/hr Meropenem (Merrem Iv 1 Gm Premix) 1 gm in 50 mls @ 12.5 mls/hr IVPB Q12 DAVID; Protocol Stop: 03/21/18 10:01 Last Admin: 03/13/18 08:59 Dose: 12.5 mls/hr Doxycycline Hyclate 100 mg/ (Sodium Chloride) 100 mls @ 100 mls/hr IVPB Q12 DAVID; Protocol Stop: 03/21/18 10:01 Last Admin: 03/13/18 09:04 Dose: 100 mls/hr Vancomycin HCl (Vancomycin 1gm) 1 gm in 250 mls @ 167 mls/hr IVPB DAILY DAVID; Protocol Stop: 03/21/18 10:01 Last Admin: 03/13/18 08:59 Dose: 167 mls/hr Levalbuterol HCl (Xopenex) 0.63 mg IH TIDRESP DAVID Methylprednisolone (Solu-Medrol) 40 mg IVP Q12 [facility]ID Metoprolol Succinate (Toprol Xl) 100 mg PO DAILY [facility] Last Admin: 03/13/18 09:05 Dose: Not Given Pantoprazole Sodium (Protonix Inj) 40 mg IVP DAILY [facility] Last Admin: 03/13/18 09:00 Dose: 40 mg - Labs Labs: 03/13/18 05:38 03/13/18 05:38 PT 16.2 SECONDS (9.4-12.5) H 03/11/18 20:55 INR 1.41 03/11/18 20:55 APTT 28.5 Seconds (25.1-36.5) 03/11/18 20:55 - Constitutional Appears: Non-toxic, Cachectic - Head Exam Head Exam: ATRAUMATIC, NORMOCEPHALIC - Eye Exam Eye Exam: EOMI, Normal appearance - ENT Exam ENT Exam: Mucous Membranes Dry - Respiratory Exam Respiratory Exam: Decreased Breath Sounds (right lung field), Rales (left lung) - Cardiovascular Exam Cardiovascular Exam: Tachycardia, +S1, +S2 - GI/Abdominal Exam GI & Abdominal Exam: Soft, Normal Bowel Sounds - Extremities Exam Extremities Exam: Normal Inspection. 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 Patient was weaned off of BIPAP and started on 30 mls/hr of NS for his SAUD which has now resolved Infectious disease was consulted and recommended Doxycycline, Merropenem, and Vancomycin as well as blood cultures, sputum cultures, and urine cultures. He is on Levalbuterol three time a day for his respiratory compromise, DVT prophylaxis with Lovenox, Protonix for GI prophylaxis, Solumedrol 40 q12h, Ciprofloxacin drops for bacterial conjuctivitis, inhaled steroids. Pulmonology, oncology, cardiology, and infectious disease are following. Recommendations are appreciated. Patient is scheduled for a right sided thoracentesis today. <Tim Mckenzie - Last Filed: 03/13/18 14:54> Objective - Vital Signs/Intake and Output Vital Signs (last 24 hours): Temp Pulse Resp BP Pulse Ox 98 F 117 H 24 140/91 H 83 L 03/13/18 12:00 03/13/18 14:00 03/13/18 11:59 03/13/18 12:00 03/13/18 11:59 Intake and Output: 03/13/18 03/13/18 06:59 18:59 Intake Total 450 Output Total 200 Balance 250 - Medications Medications: Current Medications Acetylcysteine (Acetylcysteine 20%) 4 ml IH BIDRESP DAVID Albuterol/Ipratropium (Duoneb 3 Mg/0.5 Mg (3 Ml) Ud) 3 ml IH Q2H PRN PRN Reason: Shortness of Breath Last Admin: 03/12/18 07:42 Dose: 3 ml Budesonide (Pulmicort Respules) 0.5 mg IH [id number] [facility] Ciprofloxacin (Ciloxan 0.3% Oph Soln) 2 drop OU Q6 DAVID Stop: 03/18/18 06:00 Last Admin: 03/13/18 13:03 Dose: 2 drop Doxycycline Hyclate (Doryx) 100 mg PO Q12 DAVID; Protocol Duloxetine HCl (Cymbalta) 60 mg PO DAILY [facility] Last Admin: 03/13/18 09:00 Dose: Not Given Enoxaparin Sodium (Lovenox) 40 mg SC DAILY [facility]; Protocol Gabapentin (Neurontin) 300 mg PO TID DAVID; Protocol Last Admin: 03/13/18 13:04 Dose: Not Given Sodium Chloride (Sodium Chloride 0.9%) 1,000 mls @ 30 mls/hr IV .Q24H [facility] Last Admin: 03/13/18 02:35 Dose: 30 mls/hr Meropenem (Merrem Iv 1 Gm Premix) 1 gm in 50 mls @ 12.5 mls/hr IVPB Q12 [facility]; Protocol Stop: 03/21/18 10:01 Last Admin: 03/13/18 08:59 Dose: 12.5 mls/hr Levalbuterol HCl (Xopenex) 0.63 mg IH TIDRESP [facility] Last Admin: 03/13/18 13:51 Dose: 0.63 mg Methylprednisolone (Solu-Medrol) 40 mg IVP Q12 [facility] Metoprolol Succinate (Toprol Xl) 100 mg PO DAILY [facility] Last Admin: 03/13/18 09:05 Dose: Not Given Pantoprazole Sodium (Protonix Inj) 40 mg IVP DAILY [facility] Last Admin: 03/13/18 09:00 Dose: 40 mg - Labs Labs: 03/13/18 05:38 03/13/18 05:38 PT 16.2 SECONDS (9.4-12.5) H 03/11/18 20:55 INR 1.41 03/11/18 20:55 APTT 28.5 Seconds (25.1-36.5) 03/11/18 20:55 Attending/Attestation - Attestation I have personally seen and examined this patient.: Yes I have fully participated in the care of the patient.: Yes I have reviewed all pertinent clinical information, including history, physical exam and plan: Yes Notes (Text): Patient seen and examined with the residents in the ICU, agree with above Complete right lung atelectasis with pleural effusion in the setting of underlying lung malignancy Would benefit from a bronch with Pulmonary given his possible obstructive process Plan of care made aware to the patient. No family at bedside.
--- NOTE | 2018-03-13 13:22 | CP.PCM.PN ---
Subjective - Date & Time of Evaluation Date of Evaluation: 03/13/18 Time of Evaluation: 11:00 - Subjective Subjective: Alert, oriented to place and self. Complains of weakness. Objective - Vital Signs/Intake and Output Vital Signs (last 24 hours): Temp Pulse Resp BP Pulse Ox 98 F 131 H 24 140/91 H 83 L 03/13/18 12:00 03/13/18 11:59 03/13/18 11:59 03/13/18 12:00 03/13/18 11:59 Intake and Output: 03/13/18 03/13/18 06:59 18:59 Intake Total 450 Output Total 200 Balance 250 - Medications Medications: Current Medications Acetylcysteine (Acetylcysteine 20%) 4 ml IH BIDRESP DAVID Albuterol/Ipratropium (Duoneb 3 Mg/0.5 Mg (3 Ml) Ud) 3 ml IH Q2H PRN PRN Reason: Shortness of Breath Last Admin: 03/12/18 07:42 Dose: 3 ml Budesonide (Pulmicort Respules) 0.5 mg IH [id number] [facility] Ciprofloxacin (Ciloxan 0.3% Ophth Soln) 2 drop OU Q6 [facility]ID Stop: 03/18/18 06:00 Last Admin: 03/13/18 13:03 Dose: 2 drop Doxycycline Hyclate (Doryx) 100 mg PO Q12 DAVID; Protocol Duloxetine HCl (Cymbalta) 60 mg PO DAILY [facility] Last Admin: 03/13/18 09:00 Dose: Not Given Enoxaparin Sodium (Lovenox) 40 mg SC DAILY [facility]; Protocol Gabapentin (Neurontin) 300 mg PO TID DAVID; Protocol Last Admin: 03/13/18 13:04 Dose: Not Given Sodium Chloride (Sodium Chloride 0.9%) 1,000 mls @ 30 mls/hr IV .Q24H DAVID Last Admin: 03/13/18 02:35 Dose: 30 mls/hr Meropenem (Merrem Iv 1 Gm Premix) 1 gm in 50 mls @ 12.5 mls/hr IVPB Q12 DAVID; Protocol Stop: 03/21/18 10:01 Last Admin: 03/13/18 08:59 Dose: 12.5 mls/hr Levalbuterol HCl (Xopenex) 0.63 mg IH TIDRESP DAVID Methylprednisolone (Solu-Medrol) 40 mg IVP Q12 [facility] Metoprolol Succinate (Toprol Xl) 100 mg PO DAILY [facility] Last Admin: 03/13/18 09:05 Dose: Not Given Pantoprazole Sodium (Protonix Inj) 40 mg IVP DAILY [facility] Last Admin: 03/13/18 09:00 Dose: 40 mg - Labs Labs: 03/13/18 05:38 03/13/18 05:38 PT 16.2 SECONDS (9.4-12.5) H 03/11/18 20:55 INR 1.41 03/11/18 20:55 APTT 28.5 Seconds (25.1-36.5) 03/11/18 20:55 - Constitutional Appears: Cachectic, Chronically Ill - Head Exam Head Exam: NORMOCEPHALIC - Eye Exam Eye Exam: Normal appearance, PERRL - ENT Exam ENT Exam: Mucous Membranes Moist - Neck Exam Neck Exam: Normal Inspection - Respiratory Exam Respiratory Exam: NORMAL BREATHING PATTERN Additional comments: decreased breath sound R>L - Cardiovascular Exam Cardiovascular Exam: Tachycardia, +S1, +S2 - GI/Abdominal Exam GI & Abdominal Exam: Soft, Normal Bowel Sounds - Extremities Exam Extremities Exam: Pedal Edema - Neurological Exam Neurological Exam: Alert - Skin Skin Exam: Dry, Pallor Assessment and Plan - Assessment and Plan (Free Text) Assessment: 67 year old male with history of metastatic lung cancer, HTN,alcoholism, anxiety who is admitted with sepsis, right pleural effusion, right atelectasis, shortness of breath, weakness and cachexia. BUN improving. Hyperbilirubinemia resolved The patient is alert, oriented able to converse. He verbalized understanding of his illness and reason for this hospitalization. He states that he was receiving immunotherapy treatment with Opdivo for his lung cancer(oncologist in [place]). States he thought he was doing fine, but recently was" to sick" to get his last treatment. Advance care planning discussion ensued. Benefits and burdens of intubation/CPR explained. Patient stated that he would like a reasonable chance to try. Additional conversation regarding resuscitation/ intubation in patient's with underlying illness such as his was briefly explained. I asked him to clarify his meaning of " reasonable try". Our conversation was interrupted by phone call from his daughter. She informed him that she was hospitalized because she had an OK. Mr Lambert was visibly upset by this news. Will return to speak with him about goals of alter time. Time spent with patient in goals of care and advance care planning discussion, 15 minutes Plan: Goals of care and advance care planning Right sided pleural effusion/atelectasis; IR to evaluate for thoracentisis. O2, nebulizers. Monitor ABG's, chest x ray. Maintain O2 sat > 95%. Sepsis; Blood cultures negative, Urine/sputum pending.Continue Vancomycin, Doxycycline, Merrem Sinus tachycardia;cardiology following,Echo> EF 50%, LV normal, RVSP 61, pulmonary hypertension. Continue Toprol. MAP > 65%. Lung Cancer; Oncology following, recommendations reviewed
[2018-03-13] MEDS: Levalbuterol 0.63 MG/3 ML Inhal Soln UD IH SCH ×2 (13:51→20:50)
--- NOTE | 2018-03-13 14:09 | PN ---
DATE: 03/13/2018 SUBJECTIVE: The patient is seen lying in bed in the ICU. He is more awake and alert and answering questions. He is currently on nasal cannula. He denies any chest pain. He is somewhat despondent and states he is hungry. His current medications include Cymbalta, doxycycline, DuoNeb inhaler, meropenem, Neurontin, Protonix, Toprol XL and vancomycin. PHYSICAL EXAMINATION: GENERAL: He is a chronically ill-appearing middle-aged man. VITAL SIGNS: His blood pressure was 114/74 with a pulse of 120 and sinus with occasional PVC, respirations are 14. HEENT: No JVD. Some temporal wasting noted. CHEST: Absent breath sounds on the right, bilateral rhonchi on the left. HEART: PMI normal position, and a systolic murmur is present in the left sternal border. ABDOMEN: Soft, nontender with normoactive bowel sounds. EXTREMITIES: No edema. DIAGNOSTIC DATA: Potassium 4, BUN and creatinine 40 and 1.1. White count 14.4, hemoglobin and hematocrit 10 and 31.9 with a platelet count of 156,000. Echocardiogram revealed borderline concentric LVH with normal LV size and normal LV systolic function. Moderate to severe tricuspid regurgitation is present. IMPRESSION: 1. Metastatic adenocarcinoma with right-sided endobronchial obstruction and atelectasis. 2. Respiratory distress, clinically improved. 3. Abnormal electrocardiogram, cannot exclude underlying cardiac ischemia, cardiac enzymes are currently negative. No significant wall motion abnormalities are seen on echocardiography. 4. Moderately severe tricuspid regurgitation with pulmonary hypertension. RECOMMENDATIONS: From a cardiac standpoint, conservative management is most appropriate at this time. Palliative care assessment is in progress. Comfort care should continue. No further cardiac issues need to be addressed at this time unless additional problems arise. We will follow if needed. Tony Singh MD
--- NOTE | 2018-03-13 14:14 | CON ---
DATE: 03/13/2018 PULMONARY CONSULT NOTE REFERRING PHYSICIAN: Jay Elizabeth MD REASON FOR CONSULT: Pneumonia, shortness of breath, lung cancer. 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 The patient has past medical history significant for metastatic adenocarcinoma with mets to the liver, status post ablation, mets to the lungs and bone, reports being on immunotherapy. The patient came to the emergency room complaining of shortness of breath for the past 2 weeks. Shortness of breath was associated with worsening orthopnea, productive cough, dark sputum production, 20-pound weight loss, decreased appetite, nausea, and 2 days of bilateral lower extremity edema worsening. The patient also reports fatigue, lethargy, weakness. This morning, the patient reports feeling better than yesterday. Does have cough, shortness of breath, congestion. PAST MEDICAL HISTORY: Hypertension, EtOH abuse, anxiety, metastatic adenocarcinoma with mets to the liver, lung and bone. ALLERGIES: AZITHROMYCIN, KETAMINE, PENICILLIN. SOCIAL HISTORY: Former smoker, quit about 30 years ago, EtOH abuse. Denies any illicit drug use. MEDICATIONS: DuoNeb 3 mL inhalation every 2 hours p.r.n., ciprofloxacin 2 drops every 6 hours eyes, doxycycline 100 mg every 12 hours, Cymbalta 60 mg daily, Neurontin 300 mg 3 times a day, meropenem 1 g every 12 hours, metoprolol succinate 100 mg daily, Protonix 40 mg IV push daily, sodium chloride 0.9% 1000 mL with 30 mL per hour, vancomycin 1 g daily. REVIEW OF SYSTEMS: No headache, rhinitis, chest pain, abdominal pain, nausea, vomiting, diarrhea, leg pain, or leg swelling reported. The patient does report some congestion, cough, shortness of breath. PHYSICAL EXAMINATION GENERAL: No acute distress. VITAL SIGNS: Blood pressure 141/59, pulse 126, oxygen saturation 99%. HEENT: Moist mucous membranes. Mallampati score of 4. NECK: Supple. No JVD. RESPIRATORY: Decreased breath sounds on the right. Few rhonchi in the left. CARDIOVASCULAR: Tachycardic, S1 and S2. ABDOMEN: Soft, nontender. No distension. No organomegaly. EXTREMITIES: +1 bilateral lower extremity edema. NEUROLOGIC: Awake, alert, verbal, follows commands. LABORATORY DATA: WBC 14.4, RBC 3.73, hemoglobin 10, hematocrit 31.9, platelets 156. PCO2 40, PO2 83, HCO3 is 25.9. ABG, pH 7.42. Sodium 143, potassium 4.0, chloride 105, carbon dioxide 29, anion gap 13, BUN 40, creatinine 1.1, GFR greater than 60, random glucose 89, calcium 8.5, total bilirubin 1.1. AST 27, ALT 29, alkaline phosphatase 102, total protein 5.8, albumin 2.8, globulin 3.0, albumin-globulin ratio 1.0. Procalcitonin 1.69, proBNP 6550. Preliminary blood cultures, no growth after 24 hours. DIAGNOSTIC DATA: Chest x-ray, complete opacification of the right hemithorax which is unchanged. Electrocardiogram shows sinus tachycardia. Echocardiogram, [id number] tricuspid regurgitation, RVSP 61, moderate pulmonary hypertension, mild regurgitation is trace, trace aortic regurgitation, systolic function of RV is moderately reduced. Chest CT shows complete atelectasis of the right lung with endobronchial obstruction. There is a large right pleural effusion. IMPRESSION AND PLAN: Stage IV metastatic nonsmall cell carcinoma of the right lung, pneumonia, hypertension, EtOH abuse, anxiety, depression, right side pleural effusion. We will start the patient on Solu-Medrol 40 mg every 12 hours. We will add Mucomyst and Pulmicort nebulizers. We will speak to interventional radiologist at [facility], Dr. Early to determine whether bronchial stenting with debulking of the tumor/ablation of the tumor can be done. We will speak to the primary team, Dr. Vaughn and family. Followup labs in the morning. Continue antibiotic therapy, gastric prophylaxis, schedule for thoracentesis, head of bed elevated at 45 degrees, deep venous thrombosis prophylaxis. Critical care time spent more than 35 minutes. This patient was seen and examined with Dr. Read. Discussed assessment and plan as described above. Thank you for this consult. We will follow with you. Mark Prudencisaac, MEMBER SERVICE SPECIALIST Fred Read MD [facility] # [id number]
--- NOTE | 2018-03-13 15:15 | CP.PCM.APN ---
Subjective - Date & Time of Evaluation Date of Evaluation: 03/13/18 Time of Evaluation: 11:40 - Subjective Subjective: pt seen and examined at bedside with Swati Paramonte at bedside as well discussing goals of care Review of Systems - Respiratory Respiratory: Cough Objective - Vital Signs/Intake and Output Vital Signs (last 24 hours): Temp Pulse Resp BP Pulse Ox 98 F 117 H 24 140/91 H 83 L 03/13/18 12:00 03/13/18 14:00 03/13/18 11:59 03/13/18 12:00 03/13/18 11:59 Intake and Output: 03/13/18 03/13/18 06:59 18:59 Intake Total 450 Output Total 200 Balance 250 - Medications Medications: Current Medications Acetylcysteine (Acetylcysteine 20%) 4 ml IH BIDRESP DAVID Albuterol/Ipratropium (Duoneb 3 Mg/0.5 Mg (3 Ml) Ud) 3 ml IH Q2H PRN PRN Reason: Shortness of Breath Last Admin: 03/12/18 07:42 Dose: 3 ml Budesonide (Pulmicort Respules) 0.5 mg IH [id number] DAVID Ciprofloxacin (Ciloxan 0.3% Ophth Soln) 2 drop OU Q6 DAVID Stop: 03/18/18 06:00 Last Admin: 03/13/18 13:03 Dose: 2 drop Doxycycline Hyclate (Doryx) 100 mg PO Q12 [facility]; Protocol Duloxetine HCl (Cymbalta) 60 mg PO DAILY [facility] Last Admin: 03/13/18 09:00 Dose: Not Given Enoxaparin Sodium (Lovenox) 40 mg SC DAILY [facility]; Protocol Gabapentin (Neurontin) 300 mg PO TID DAVID; Protocol Last Admin: 03/13/18 13:04 Dose: Not Given Sodium Chloride (Sodium Chloride 0.9%) 1,000 mls @ 30 mls/hr IV .Q24H DAVID Last Admin: 03/13/18 02:35 Dose: 30 mls/hr Meropenem (Merrem Iv 1 Gm Premix) 1 gm in 50 mls @ 12.5 mls/hr IVPB Q12 [facility]ID; Protocol Stop: 03/21/18 10:01 Last Admin: 03/13/18 08:59 Dose: 12.5 mls/hr Levalbuterol HCl (Xopenex) 0.63 mg TIDRESP [facility] Last Admin: 03/13/18 13:51 Dose: 0.63 mg Methylprednisolone (Solu-Medrol) 40 mg IVP Q12 [facility] Metoprolol Succinate (Toprol Xl) 100 mg PO DAILY [facility] Last Admin: 03/13/18 09:05 Dose: Not Given Pantoprazole Sodium (Protonix Inj) 40 mg IVP DAILY [facility] Last Admin: 03/13/18 09:00 Dose: 40 mg - Labs Labs: 03/13/18 05:38 03/13/18 05:38 PT 16.2 SECONDS (9.4-12.5) H 03/11/18 20:55 INR 1.41 03/11/18 20:55 APTT 28.5 Seconds (25.1-36.5) 03/11/18 20:55 - Constitutional Appears: Older Than Stated Age, Chronically Ill - Eye Exam Eye Exam: Normal appearance - Respiratory Exam Respiratory Exam: Decreased Breath Sounds, NORMAL BREATHING PATTERN - Cardiovascular Exam Cardiovascular Exam: Tachycardia, +S1, +S2 - GI/Abdominal Exam GI & Abdominal Exam: Soft, Normal Bowel Sounds - Neurological Exam Neurological Exam: Alert, Awake - Skin Skin Exam: Dry, Intact Assessment and Plan - Assessment and Plan (Free Text) Plan: 67 yr old with pmh sig for nonsmall cell lung ca with mets to liver and bone who presented with worsening ROJAS and was found to have SAUD, right lung white out and acute hypoxic resp failure combative and confused on initial exam now seen in ICU where he is undergoing eval and treatment Chest X-Ray 03/11/18 20:28 IMPRESSION: There is complete opacification of the right hemithorax. There is no mediastinal shift Chest CT 03/11/18 23:21 IMPRESSION: There is complete atelectasis of the right lung with endobronchial obstruction. There is a large right pleural effusion. Chest X-Ray 03/12/18 06:00 IMPRESSION: There is complete opacification of the right lung. This is unchanged. There is no mediastinal shift Chest X-Ray 03/13/18 09:41 IMPRESSION: There is complete opacification of the right hemithorax which is unchanged will follow IR consult and recommendations for large right pleural effusion ( malignant?) SAUD - pt on iVF resp failure- BIPAP weaned off, IV steroid regimen noted sepsis 2nd to severe right sided HCAP - ID recs noted, lactate trending down from 2.2 to 1.4 iv antibiotic on baord and leukocytosis noted with improvement at 14.4 will continue to follow elis salomon BPCI/TIC - BPCIA/TIC Educated pt/family on BPCIA/CIR/Med to Bed Programs: Yes Flyers given, including CMS Beneficiary letter: Yes Pt/family verbalized understanding & agreed to program: Yes (info left at bedside)
--- NOTE | 2018-03-13 17:27 | US ---
PROCEDURE: Ultrasound guided right thoracentesis. CLINICAL HISTORY: Carcinoma. Large right pleural effusion, probably malignant. Needs diagnostic and therapeutic right thoracentesis PHYSICIAN(S): Smooth Izquierdo MD. TECHNIQUE: The relative risks and indications of the procedure were explained to the patient and consent obtained. The patient was placed in a sitting position on the stretcher and sonography of the right chest performed. This revealed a complex large right pleural effusion rightpleural effusion. A right posterolateral intercostal approach was selected and the area prepped and draped usual sterile fashion. 1% Xylocaine was used to anesthetize the skin and soft tissues. A 7 [place] thoracentesis catheter was trocared into the right pleural cavity and 1900 cc of bloody fluid aspirated. A cytology specimen was sent. The patient tolerated the procedure IMPRESSION: 1. Ultrasound guided right thoracentesis. 1900 cc of bloody fluid were aspirated. A cytology specimen was sent
--- NOTE | 2018-03-13 17:56 | RAD ---
Date of service: 03/13/2018 HISTORY: Status post right thoracentesis. Relevant interventional procedure(s): March 13, 2018 right thoracentesis with retrieval of 1.9 L bloody fluid. COMPARISON: No prior. FINDINGS: LUNGS: Persistent opacification of the right hemithorax. Ipsilateral shift of mediastinal structures compared to the most recent chest x-ray consistent with evaluation of newly 2 L of fluid. Complete consolidation, opacification of right lung. PLEURA: Status post thoracentesis. No visible right pneumothorax CARDIOVASCULAR: No atherosclerotic calcification present No radiographic findings to suggest acute or significant cardiovascular disease. Venous access catheter in stable, satisfactory position. OSSEOUS STRUCTURES: No significant abnormalities. VISUALIZED UPPER ABDOMEN: Normal. OTHER FINDINGS: None. IMPRESSION: No adverse findings following recovery of 1.9 L of fluid from the right pleural space. Persistent opacification of right hemithorax likely residual compressive atelectasis.
--- NOTE | 2018-03-13 18:09 | PN ---
DATE: 03/13/2018 SUBJECTIVE: The patient is seen in bed and in no acute distress. Seen earlier this morning in 128, bed 6. The patient is extubated. The patient is comfortable. No fevers and chills. PHYSICAL EXAMINATION VITAL SIGNS: Temperature is 98, blood pressure is 127/67, respiratory rate of 24, and heart rate of 121. HEENT: Unremarkable. NECK: Supple. LUNGS: Decreased breath sounds. HEART: Normal S1 and S2. ABDOMEN: Soft and nontender. LABORATORY DATA: Reveals a white count of 14,400, hemoglobin of 10, and platelets are noted. Chemistry reveals a BUN of 40, creatinine of 1.1. Procalcitonin is 1.69. Urinalysis is noted. Microbiology reveals the blood cultures are negative. A chest x-ray from this morning complete opacification of right hemithorax which is unchanged. Review of orders reveals the patient to be on doxycycline IV and meropenem IV. The patient is also on Solu-Medrol and vancomycin. 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 We will change the doxycycline to p.o., discontinue the vancomycin since the blood cultures are no growth, less likely the Port-a-Cath infection has complete opacification of right lung, and we will follow with you and tend the procalcitonin. We will repeat the procalcitonin . Edgard Mackey MD
[2018-03-13] MEDS: Acetylcysteine 20% Inhal Soln (4ml) IH SCH (20:38)
[2018-03-13] MEDS: Budesonide 0.5 mg/2 ml Inhal Susp UD IH SCH (20:38)
[2018-03-13] MEDS: MethylPREDNISolone 40 mg Vial IVP SCH (21:10)
[2018-03-14] MEDS: Ciprofloxacin 0.3% OPTH SOLN OU SCH ×4 (00:09→18:06)
[2018-03-14] MEDS ORDERED: Morphine 2 mg/ml ISec IVP ONE (02:04)
--- NOTE | 2018-03-14 03:08 | PN ---
DATE: 03/13/2018 ONCOLOGY PROGRESS NOTE LOCATION: The patient is in ICU, bed 6. 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 Currently admitted with progressive shortness of breath, found to have massive right pleural effusion along with complete obstruction of the right main stem bronchus, seen by the oliving machine operator, had a pleural tap today and more than 1.9 liters of chylous fluid was removed, suggestive of mediastinal obstruction. PHYSICAL EXAMINATION: GENERAL: The patient is examined in bed. Family is by the bedside. The patient appears significantly improved. Complaining of some epigastric discomfort. Post taping, breathing is little bit easier. VITAL SIGNS: Stable. Blood pressure is 141/59, pulse is 126, O2 sat is 99%. HEENT: Head is normocephalic and atraumatic. Mallampati score is 4. NECK: Supple. There is no adenopathy. No jugular venous distention. CARDIOPULMONARY: Reveals tachycardia. S1 and S2 are noted. No gallop is heard. LUNGS: Reveals decreased breath sounds in the right side, scattered wheezes on the left side. ABDOMEN: Soft and nontender, though the patient complains of some epigastric pain, it seems to be . There is no rebound, rigidity or guarding is noted. EXTREMITIES: Reveals 1+ bilateral lower extremity edema. NEUROLOGIC: Reveals higher functions to be normal. No focal deficits are noted. GENITOURINARY: Rectal is deferred. LABORATORY DATA: Reveals a white count of 14.4, hemoglobin of 10, hematocrit 31.9, and platelet count of 156,000. PCO2 of 40, pO2 of 83, bicarbonate of 25.9. ABG shows a pH of 7.42. Sodium of 143, K of 4, chloride of 105, CO2 of 29, BUN of 40, creatinine of 1.1, GFR is greater than 60, glucose is 89, calcium is 8.5, total bili is 1.1, AST is 27, ALT is 29, alk phos is 102, procalcitonin is 1.69, proBNP is 6550. Preliminary blood cultures are negative at 24 hours. 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 Currently on immunotherapy. Admitted to the hospital for progressive shortness of breath, found to have significant pleural effusion, which is chylous along with right main stem bronchus obstruction. The patient is on Solu-Medrol, Mucomyst, and Pulmicort nebulizers. The patient's case is going to discussed with Dr. Read with the pulmonary intervention of Dr. Early [facility]. The patient is a candidate for laser ablation, right main stem lesion and placement of a stent with debulking of the tumor at the same time. We had a long discussion with the patient's family including the , the patient and his daughter. They are going to make a decision as to how aggressive we should be, because doing the process of the ablation and placement of the stent, we would have to be aggressive and we plan to intubate him, so the decision whether we can be aggressive initially and then make him a DNR/DNI if we choose to do so is an option the family may have to think about and decide and let us know. In the meantime, I told Laura, his , who knows me very well for many years to get me all the information of the prior treatment including the last scans from [facility] where he has been treated in the recent past. In the meantime, the patient will continue antibiotics, gastric prophylaxis. Routine postop exam instructions have been given to the patient. The patient will be followed by us very carefully over the next several days. The patient's family is going to keep me addressed of the decision that they are going to make. Time spent with the patient and the family is greater than 90 minutes, out of which, more than 50% of time was spent [id number], correlating all the information and discussing with the family, has to plan and what needs to be done. Festus Vaughn MD
[2018-03-14 06:35] LABS: GRAN # 8.64 (1.4-6.5); HEMOGLOBIN 9.7 g/dL (14.0-18.0); LYMPH # 0.4 (1.2-3.4); LYMPH % 4.7 % (22.0-35.0); MEAN CELL VOLUME 86.1 fl (80.0-105.0); MEAN CORPUSCULAR HEMOGLOBIN 26.4 pg (25.0-35.0); MEAN CORPUSCULAR HGB CONC 30.7 g/dl (31.0-37.0); MEAN PLATELET VOLUME 10.2 fl (7.0-11.0); MONO # 0.2 (0.1-0.6); MONO % 2.3 % (1.0-6.0); RBC 3.67 10^6/uL (3.5-6.1); WHITE BLOOD COUNT 9.3 10^3/uL (4.5-11.0)
[2018-03-14 07:17] LABS: ALB/GLOB RATIO 0.9 (1.1-1.8); ALBUMIN 2.4 g/dL (3.0-4.8); ALT/SGPT 47 U/L (7-56); AST/SGOT 56 U/L (17-59); BLOOD UREA NITROGEN 31 mg/dL (7-21); CALCIUM 7.9 mg/dL (8.4-10.5); GFR NON-AFRICAN AMERICAN > 60
[2018-03-14] MEDS: Acetylcysteine 20% Inhal Soln (4ml) IH SCH ×2 (07:25→20:17)
[2018-03-14] MEDS: Levalbuterol 0.63 MG/3 ML Inhal Soln UD IH SCH ×2 (07:26→20:19)
[2018-03-14] MEDS: Budesonide 0.5 mg/2 ml Inhal Susp UD IH SCH ×2 (07:26→20:18)
--- NOTE | 2018-03-14 07:49 | CP.CCUPN ---
<Azar Chen - Last Filed: 03/14/18 09:54> CCU Subjective - Physician Review Subjective (Free Text): 03/14/18 07:49 Carlos Chen PGY2 - ICU Progress Note Patient seen and examined this AM. Patient is noted to be sitting up in bed comortably, eating breakfast in no apparent distress. Patient had therapeutic thoracentesis with IR yesterday with removal of 1900 mL. Patient reports improved respiratory effort this morning. Denies chest pain, abdominal pain, fever, chills, nausea, vomiting. Reports discomfort with opening of his eyes secondary to his conjunctivitis. He indicates wishes for continued full code at this time. CCU Objective - Vital Signs / Intake & Output Intake and Output (Last 8hrs): Intake & Output 03/13/18 03/14/18 03/14/18 22:59 06:59 14:59 Intake Total 665 Output Total 325 Balance 340 Intake: IV 665 IVF 165 antibiotics 400 left chest wall 100 Oral 0 Output: Urine 325 Urethral (Hathaway) 225 Urine, Voided 100 Other: # Bowel Movements 0 - Physical Exam Narrative Physical Exam (Free Text): 03/14/18 09:55 Patient is noted to be in no apparent distress, eating breakfast, breathing comfortably Head: Positive for: Atraumatic, Normocephalic Pupils: Positive for: PERRL Extroacular Muscles: Positive for: EOMI Conjunctiva: Positive for: Injected, Other (crustation around eyes bilaterally ) Mouth: Positive for: Moist Mucous Membranes Nose (External): Positive for: Atraumatic Nose (Internal): Positive for: No Active Bleeding Neck: Positive for: Normal Range of Motion Respiratory/Chest: Positive for: Decreased Breath Sounds (Decreased breath sounds bilaterally, minimal breath sounds on right, improved from prevous 24 hours ). Negative for: Respiratory Distress, Accessory Muscle Use Cardiovascular: Positive for: Regular Rate and Rhythm, Normal S1, S2. Negative for: Murmurs Abdomen: Negative for: Tenderness, Distention, Peritoneal Signs Back: Positive for: Normal Inspection Upper Extremity: Positive for: Normal Inspection. Negative for: Cyanosis, Edema Lower Extremity: Positive for: Edema (1+ pitting edema bilaterally) Neurological: Positive for: GCS=15, CN II-XII Intact, Speech Normal Skin: Positive for: Warm, Dry, Normal Color. Negative for: Rashes Psychiatric: Positive for: Alert, Oriented x 3, Normal Insight, Normal Concentration. Negative for: Agitated - Medications Active Medications: Active Medications Generic Name Dose Route Start Last Admin Trade Name Freq PRN Reason Stop Dose Admin Acetylcysteine 4 ml 03/13/18 20:00 03/14/18 07:25 Acetylcysteine 20% IH 4 ml BIDRESP DAVID Administration Albuterol/Ipratropium 3 ml 03/12/18 02:18 03/12/18 07:42 Duoneb 3 Mg/0.5 Mg (3 Ml) Ud IH 3 ml Q2H PRN Administration Shortness of Breath Budesonide 0.5 mg 03/13/18 20:00 03/14/18 07:26 Pulmicort Respules IH 0.5 mg [id number] DAVID Administration Ciprofloxacin 2 drop 03/12/18 12:00 03/14/18 05:37 Ciloxan 0.3% Ophth Soln OU 03/18/18 06:00 2 drop Q6 DAVID Administration Doxycycline Hyclate 100 mg 03/13/18 22:00 03/13/18 21:10 Doryx PO 100 mg Q12 DAVID Administration Protocol Duloxetine HCl 60 mg 03/12/18 10:00 03/13/18 09:00 Cymbalta PO Not Given DAILY DAVID Enoxaparin Sodium 40 mg 03/14/18 10:00 Lovenox SC DAILY DAVID Protocol Gabapentin 300 mg 03/12/18 10:00 03/13/18 18:03 Neurontin PO Not Given TID DAVID Protocol Sodium Chloride 1,000 mls @ 30 mls/hr 03/12/18 02:00 03/13/18 02:35 Sodium Chloride 0.9% IV 30 mls/hr .Q24H DAVID Administration Meropenem 1 gm in 50 mls @ 12.5 mls/hr 03/12/18 10:00 03/13/18 21:10 Merrem Iv 1 Gm Premix IVPB 03/21/18 10:01 12.5 mls/hr Q12 DAVID Administration Protocol Levalbuterol HCl 0.63 mg 03/13/18 14:00 03/14/18 07:26 Xopenex IH 0.63 mg TIDRESP DAVID Administration Methylprednisolone 40 mg 03/13/18 22:00 03/13/18 21:10 Solu-Medrol IVP 40 mg Q12 DAVID Administration Metoprolol Succinate 100 mg 03/12/18 10:00 03/13/18 09:05 Toprol Xl PO Not Given DAILY ON LICENSE OF [facility] Oxycodone HCl 20 mg 03/13/18 22:00 03/13/18 10:10 Oxycontin Extended Release Tab PO 20 mg Q12 DAVID Administration Pantoprazole Sodium 40 mg 03/12/18 10:00 03/13/18 09:00 Protonix Inj IVP 40 mg DAILY DAVID Administration - Patient Studies Lab Studies: Microbiology Studies 03/11/18 21:30 Blood Culture - Preliminary Blood NO GROWTH AFTER 48 HOURS 03/11/18 21:00 Blood Culture - Preliminary Blood NO GROWTH AFTER 48 HOURS 03/12/18 08:26 Urine Culture - Final Urine No Growth (<1,000 CFU/ML) Lab Studies 03/14/18 03/14/18 03/13/18 Range/Units 06:00 06:00 13:20 WBC 9.3 D (4.5-11.0) 10^3/uL RBC 3.67 (3.5-6.1) 10^6/uL Hgb 9.7 L (14.0-18.0) g/dL Hct 31.6 L (42.0-52.0) % MCV 86.1 (80.0-105.0) fl MCH 26.4 (25.0-35.0) pg MCHC 30.7 L (31.0-37.0) g/dl RDW 16.0 H (11.5-14.5) % Plt Count 124 (120.0-450.0) 10^3/uL MPV 10.2 (7.0-11.0) fl Gran % 93.0 H (50.0-68.0) % Lymph % (Auto) 4.7 L (22.0-35.0) % [place] % (Auto) 2.3 (1.0-6.0) % Eos % (Auto) 0.0 L (1.5-5.0) % Baso % (Auto) 0.0 (0.0-3.0) % Gran # 8.64 H (1.4-6.5) Lymph # (Auto) 0.4 L (1.2-3.4) [place] # (Auto) 0.2 (0.1-0.6) Eos # (Auto) 0.0 (0.0-0.7) Baso # (Auto) 0.00 (0.0-2.0) K/mm3 Sodium 138 (132-148) mmol/L Potassium 4.5 (3.6-5.0) mmol/L Chloride 104 (98-107) mmol/L Carbon Dioxide 32 (21-33) mmol/L Anion Gap 7 L (10-20) BUN 31 H (7-21) mg/dL Creatinine 1.0 (0.8-1.5) mg/dl Est GFR ( Amer) > 60 Est GFR (Non-Af Amer) > 60 Random Glucose 148 H (70-110) mg/dL Calcium 7.9 L (8.4-10.5) mg/dL Total Bilirubin 1.0 (0.2-1.3) mg/dL AST 56 (17-59) U/L ALT 47 (7-56) U/L Alkaline Phosphatase 89 (38-126) U/L Lactate Dehydrogenase (333-699) U/L Total Protein 5.1 L (5.8-8.3) g/dL Albumin 2.4 L (3.0-4.8) g/dL Globulin 2.7 gm/dL Albumin/Globulin Ratio 0.9 L (1.1-1.8) Procalcitonin 0.74 H (0.19-0.49) NG/ML Ur L.pneumophila Ag (NEGATIVE) 03/13/18 03/13/18 Range/Units 13:00 00:00 WBC (4.5-11.0) 10^3/uL RBC (3.5-6.1) 10^6/uL Hgb (14.0-18.0) g/dL Hct (42.0-52.0) % MCV (80.0-105.0) fl MCH (25.0-35.0) pg MCHC (31.0-37.0) g/dl RDW (11.5-14.5) % Plt Count (120.0-450.0) 10^3/uL MPV (7.0-11.0) fl Gran % (50.0-68.0) % Lymph % (Auto) (22.0-35.0) % [place] % (Auto) (1.0-6.0) % Eos % (Auto) (1.5-5.0) % Baso % (Auto) (0.0-3.0) % Gran # (1.4-6.5) Lymph # (Auto) (1.2-3.4) [place] # (Auto) (0.1-0.6) Eos # (Auto) (0.0-0.7) Baso # (Auto) (0.0-2.0) K/mm3 Sodium (132-148) mmol/L Potassium (3.6-5.0) mmol/L Chloride (98-107) mmol/L Carbon Dioxide (21-33) mmol/L Anion Gap (10-20) BUN (7-21) mg/dL Creatinine (0.8-1.5) mg/dl Est GFR ( Amer) Est GFR (Non-Af Amer) Random Glucose (70-110) mg/dL Calcium (8.4-10.5) mg/dL Total Bilirubin (0.2-1.3) mg/dL AST (17-59) U/L ALT (7-56) U/L Alkaline Phosphatase (38-126) U/L Lactate Dehydrogenase 591 (333-699) U/L Total Protein (5.8-8.3) g/dL Albumin (3.0-4.8) g/dL Globulin gm/dL Albumin/Globulin Ratio (1.1-1.8) Procalcitonin (0.19-0.49) NG/ML Ur L.pneumophila Ag Negative (NEGATIVE) Laboratory Results - last 24 hr 03/13/18 03/13/18 03/13/18 00:00 13:00 13:20 WBC RBC Hgb Hct MCV MCH MCHC RDW Plt Count MPV Gran % Lymph % (Auto) [place] % (Auto) Eos % (Auto) Baso % (Auto) Gran # Lymph # (Auto) [place] # (Auto) Eos # (Auto) Baso # (Auto) Sodium Potassium Chloride Carbon Dioxide Anion Gap BUN Creatinine Est GFR ( Amer) Est GFR (Non-Af Amer) Random Glucose Calcium Total Bilirubin AST ALT Alkaline Phosphatase Lactate Dehydrogenase 591 Total Protein Albumin Globulin Albumin/Globulin Ratio Procalcitonin 0.74 H Ur L.pneumophila Ag Negative 03/14/18 03/14/18 06:00 06:00 WBC 9.3 D RBC 3.67 Hgb 9.7 L Hct 31.6 L MCV 86.1 MCH 26.4 MCHC 30.7 L RDW 16.0 H Plt Count 124 MPV 10.2 Gran % 93.0 H Lymph % (Auto) 4.7 L [place] % (Auto) 2.3 Eos % (Auto) 0.0 L Baso % (Auto) 0.0 Gran # 8.64 H Lymph # (Auto) 0.4 L [place] # (Auto) 0.2 Eos # (Auto) 0.0 Baso # (Auto) 0.00 Sodium 138 Potassium 4.5 Chloride 104 Carbon Dioxide 32 Anion Gap 7 L BUN 31 H Creatinine 1.0 Est GFR ( Amer) > 60 Est GFR (Non-Af Amer) > 60 Random Glucose 148 H Calcium 7.9 L Total Bilirubin 1.0 AST 56 ALT 47 Alkaline Phosphatase 89 Lactate Dehydrogenase Total Protein 5.1 L Albumin 2.4 L Globulin 2.7 Albumin/Globulin Ratio 0.9 L Procalcitonin Ur L.pneumophila Ag Radiology Impressions: Radiology Impressions Thoracentesis Ultrasound 03/13/18 09:39 IMPRESSION: 1. Ultrasound guided right thoracentesis. 1900 cc of bloody fluid were aspirated. A cytology specimen was sent Chest X-Ray 03/13/18 09:41 IMPRESSION: There is complete opacification of the right hemithorax which is unchanged Chest X-Ray 03/13/18 16:52 IMPRESSION: No adverse findings following recovery of 1.9 L of fluid from the right pleural space. Persistent opacification of right hemithorax likely residual compressive atelectasis. 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 Patient admitted to ICU for hypoxemia respiratory failure with right sided pleural effusion. Patient underwent therapeutic tap from IR yesterday with removal of 1900mL chylous fluid. Plan: Plan: Neruo - AAOx3 today, less somnolent - Continue to monitor and evaluate neuro status Cardio Hx HTN - Maintain MAP >65 - Holding morning metoprolol as patient normotensive CHF - Patient with elevated BNP(6550), no baseline to draw from - Bilateral edema, normotensive, hx of orthopnea(likely due to increasing pleural effusion) - Echocardiogram: EF 53%, no pericardial effusion, LV normal size, proximal septal thickening, systolic function of RV is moderately reduced, RVSP 61, moderate pulm HTN Indeterminate trops - Cardio consulted with following recs to continue supportive care, Pulmonary Hx of Lung adenocarcinoma Right sided pleural effusion, multiloculated with septations, likley chronic - CXR post thoracentesis of 1.9 chylous fluid showing improvement - Continue supportive 02 as needed, duonebs prn, BiPAP at night - Pulmonary consult, Dr. Read following with recs of aggressive pulm toilet and reaching out to [facility] for possible bronchial stenting with debulking of the tumor/ablation of the tumor can be done - Doxy Merrem for broad spectrum abx - IR consulted for therapeutic thoracentesis, on schedule for tap today - Palliative care consulted, discussions with family and patient point towards full code - Heme/Onc consulted and following patient GI - Dietary supplementation - Protonix IV for GI ppx RENAL - Maintain euvolemia, replace lytes as necessary - UA showing elevated protein, moderate bilirubin, urine WBC, many urine bacteria, negative nitrate, trace urine leuk est - Ulytes pending HEME/ONC Stage IV Lung adenocarcinoma - Heme/Onc following notes reviewed - Pulm consulted and following, notes reviewed Leukocytosis - improving ID Right sided pleural effusion/pneumonia Sepsis on admission with elevated Lactate, tachycardia, leukocytosis - Vanc, Aztreonam in ED, limited fluid challenge secondary to acute CHF picture - ID consulted and following, discontinued vanc at this time DVT/GI PPX - Heparin - Protonix Disp: Patient noted to have improvement in respiratory effort in no acute distress, tolerating diet, afebrile, HDS and is scheduled to be transferred out of ICU. Patient seen, case and plan discussed with attending - Date & Time Date: 03/14/18 Time: 07:58 <Angelito Li - Last Filed: 03/14/18 11:42> CCU Objective - Vital Signs / Intake & Output Vital Signs (Last 4 hours): Vital Signs Pulse Resp BP Pulse Ox 03/14/18 11:00 104 H 16 120/66 99 03/14/18 10:30 98 H 122/71 03/14/18 10:00 104 H 16 122/71 94 L 03/14/18 09:00 100 H 106/58 L 89 L 03/14/18 08:00 89 11 L 120/62 95 Intake and Output (Last 8hrs): Intake & Output 03/13/18 03/14/18 03/14/18 22:59 06:59 14:59 Intake Total 665 710 Output Total 325 250 Balance 340 460 Intake: IV 665 460 IVF 165 360 antibiotics 400 100 left chest wall 100 Oral 0 250 Output: Urine 325 250 Urethral (Hathaway) 225 Urine, Voided 100 250 Other: # Bowel Movements 0 - Medications Active Medications: Active Medications Generic Name Dose Route Start Last Admin Trade Name Freq PRN Reason Stop Dose Admin Acetylcysteine 4 ml 03/13/18 20:00 03/14/18 07:25 Acetylcysteine 20% IH 4 ml BIDRESP DAVID Administration Albuterol/Ipratropium 3 ml 03/12/18 02:18 03/12/18 07:42 Duoneb 3 Mg/0.5 Mg (3 Ml) Ud IH 3 ml Q2H PRN Administration Shortness of Breath Benzonatate 100 mg 03/14/18 14:00 Tessalon Perles PO TID DAVID Budesonide 0.5 mg 03/13/18 20:00 03/14/18 07:26 Pulmicort Respules IH 0.5 mg [id number] ADVID Administration Ciprofloxacin 2 drop 03/12/18 12:00 03/14/18 05:37 Ciloxan 0.3% Ophth Soln OU 03/18/18 06:00 2 drop Q6 DAVID Administration Doxycycline Hyclate 100 mg 03/13/18 22:00 03/14/18 10:31 Doryx PO 100 mg Q12 DAVID Administration Protocol Duloxetine HCl 60 mg 03/12/18 10:00 03/14/18 10:31 Cymbalta PO 60 mg DAILY DAVID Administration Enoxaparin Sodium 40 mg 03/14/18 10:00 03/14/18 10:30 Lovenox SC 40 mg DAILY DAVID Administration Protocol Gabapentin 300 mg 03/12/18 10:00 03/14/18 10:31 Neurontin PO 300 mg TID DAVID Administration Protocol Sodium Chloride 1,000 mls @ 30 mls/hr 03/12/18 02:00 03/13/18 02:35 Sodium Chloride 0.9% IV 30 mls/hr .Q24H DAVID Administration Meropenem 1 gm in 50 mls @ 12.5 mls/hr 03/12/18 10:00 03/14/18 10:30 Merrem Iv 1 Gm Premix IVPB 03/21/18 10:01 12.5 mls/hr Q12 DAVID Administration Protocol Levalbuterol HCl 0.63 mg 03/13/18 14:00 03/14/18 07:26 Xopenex IH 0.63 mg TIDRESP DAVID Administration Methylprednisolone 40 mg 03/13/18 22:00 03/14/18 10:29 Solu-Medrol IVP 40 mg Q12 DAVID Administration Metoprolol Succinate 100 mg 03/12/18 10:00 03/14/18 10:30 Toprol Xl PO 100 mg DAILY DAVID Administration Oxycodone HCl 20 mg 03/13/18 22:00 03/14/18 10:32 Oxycontin Extended Release Tab PO 20 mg Q12 DAVID Administration Pantoprazole Sodium 40 mg 03/12/18 10:00 03/14/18 10:30 Protonix Inj IVP 40 mg DAILY DAVID Administration - Patient Studies Lab Studies: Microbiology Studies 03/11/18 21:30 Blood Culture - Preliminary Blood NO GROWTH AFTER 48 HOURS 03/11/18 21:00 Blood Culture - Preliminary Blood NO GROWTH AFTER 48 HOURS 03/12/18 08:26 Urine Culture - Final Urine No Growth (<1,000 CFU/ML) Lab Studies 03/14/18 03/14/18 03/13/18 Range/Units 06:00 06:00 13:20 WBC 9.3 D (4.5-11.0) 10^3/uL RBC 3.67 (3.5-6.1) 10^6/uL Hgb 9.7 L (14.0-18.0) g/dL Hct 31.6 L (42.0-52.0) % MCV 86.1 (80.0-105.0) fl MCH 26.4 (25.0-35.0) pg MCHC 30.7 L (31.0-37.0) g/dl RDW 16.0 H (11.5-14.5) % Plt Count 124 (120.0-450.0) 10^3/uL MPV 10.2 (7.0-11.0) fl Gran % 93.0 H (50.0-68.0) % Lymph % (Auto) 4.7 L (22.0-35.0) % [place] % (Auto) 2.3 (1.0-6.0) % Eos % (Auto) 0.0 L (1.5-5.0) % Baso % (Auto) 0.0 (0.0-3.0) % Gran # 8.64 H (1.4-6.5) Lymph # (Auto) 0.4 L (1.2-3.4) [place] # (Auto) 0.2 (0.1-0.6) Eos # (Auto) 0.0 (0.0-0.7) Baso # (Auto) 0.00 (0.0-2.0) K/mm3 Sodium 138 (132-148) mmol/L Potassium 4.5 (3.6-5.0) mmol/L Chloride 104 (98-107) mmol/L Carbon Dioxide 32 (21-33) mmol/L Anion Gap 7 L (10-20) BUN 31 H (7-21) mg/dL Creatinine 1.0 (0.8-1.5) mg/dl Est GFR ( Amer) > 60 Est GFR (Non-Af Amer) > 60 Random Glucose 148 H (70-110) mg/dL Calcium 7.9 L (8.4-10.5) mg/dL Total Bilirubin 1.0 (0.2-1.3) mg/dL AST 56 (17-59) U/L ALT 47 (7-56) U/L Alkaline Phosphatase 89 (38-126) U/L Lactate Dehydrogenase (333-699) U/L Total Protein 5.1 L (5.8-8.3) g/dL Albumin 2.4 L (3.0-4.8) g/dL Globulin 2.7 gm/dL Albumin/Globulin Ratio 0.9 L (1.1-1.8) Procalcitonin 0.74 H (0.19-0.49) NG/ML Ur L.pneumophila Ag (NEGATIVE) 03/13/18 03/13/18 Range/Units 13:00 00:00 WBC (4.5-11.0) 10^3/uL RBC (3.5-6.1) 10^6/uL Hgb (14.0-18.0) g/dL Hct (42.0-52.0) % MCV (80.0-105.0) fl MCH (25.0-35.0) pg MCHC (31.0-37.0) g/dl RDW (11.5-14.5) % Plt Count (120.0-450.0) 10^3/uL MPV (7.0-11.0) fl Gran % (50.0-68.0) % Lymph % (Auto) (22.0-35.0) % [place] % (Auto) (1.0-6.0) % Eos % (Auto) (1.5-5.0) % Baso % (Auto) (0.0-3.0) % Gran # (1.4-6.5) Lymph # (Auto) (1.2-3.4) [place] # (Auto) (0.1-0.6) Eos # (Auto) (0.0-0.7) Baso # (Auto) (0.0-2.0) K/mm3 Sodium (132-148) mmol/L Potassium (3.6-5.0) mmol/L Chloride (98-107) mmol/L Carbon Dioxide (21-33) mmol/L Anion Gap (10-20) BUN (7-21) mg/dL Creatinine (0.8-1.5) mg/dl Est GFR ( Amer) Est GFR (Non-Af Amer) Random Glucose (70-110) mg/dL Calcium (8.4-10.5) mg/dL Total Bilirubin (0.2-1.3) mg/dL AST (17-59) U/L ALT (7-56) U/L Alkaline Phosphatase (38-126) U/L Lactate Dehydrogenase 591 (333-699) U/L Total Protein (5.8-8.3) g/dL Albumin (3.0-4.8) g/dL Globulin gm/dL Albumin/Globulin Ratio (1.1-1.8) Procalcitonin (0.19-0.49) NG/ML Ur L.pneumophila Ag Negative (NEGATIVE) Laboratory Results - last 24 hr 03/13/18 03/13/18 03/13/18 00:00 13:00 13:20 WBC RBC Hgb Hct MCV MCH MCHC RDW Plt Count MPV Gran % Lymph % (Auto) [place] % (Auto) Eos % (Auto) Baso % (Auto) Gran # Lymph # (Auto) [place] # (Auto) Eos # (Auto) Baso # (Auto) Sodium Potassium Chloride Carbon Dioxide Anion Gap BUN Creatinine Est GFR ( Amer) Est GFR (Non-Af Amer) Random Glucose Calcium Total Bilirubin AST ALT Alkaline Phosphatase Lactate Dehydrogenase 591 Total Protein Albumin Globulin Albumin/Globulin Ratio Procalcitonin 0.74 H Ur L.pneumophila Ag Negative 03/14/18 03/14/18 06:00 06:00 WBC 9.3 D RBC 3.67 Hgb 9.7 L Hct 31.6 L MCV 86.1 MCH 26.4 MCHC 30.7 L RDW 16.0 H Plt Count 124 MPV 10.2 Gran % 93.0 H Lymph % (Auto) 4.7 L [place] % (Auto) 2.3 Eos % (Auto) 0.0 L Baso % (Auto) 0.0 Gran # 8.64 H Lymph # (Auto) 0.4 L [place] # (Auto) 0.2 Eos # (Auto) 0.0 Baso # (Auto) 0.00 Sodium 138 Potassium 4.5 Chloride 104 Carbon Dioxide 32 Anion Gap 7 L BUN 31 H Creatinine 1.0 Est GFR ( Amer) > 60 Est GFR (Non-Af Amer) > 60 Random Glucose 148 H Calcium 7.9 L Total Bilirubin 1.0 AST 56 ALT 47 Alkaline Phosphatase 89 Lactate Dehydrogenase Total Protein 5.1 L Albumin 2.4 L Globulin 2.7 Albumin/Globulin Ratio 0.9 L Procalcitonin Ur L.pneumophila Ag Radiology Impressions: Radiology Impressions Thoracentesis Ultrasound 03/13/18 09:39 IMPRESSION: 1. Ultrasound guided right thoracentesis. 1900 cc of bloody fluid were aspirated. A cytology specimen was sent Chest X-Ray 03/13/18 16:52 IMPRESSION: No adverse findings following recovery of 1.9 L of fluid from the right pleural space. Persistent opacification of right hemithorax likely residual compressive atelectasis. Critical Care Progress Note - Nutrition Nutrition: Nutrition Category Date Time Status Heart Healthy Diet [DIET] Diets 03/14/18 Breakfast Active Assessment/Plan - Assessment and Plan (Free Text) Plan: Patient seen and examined on rounds with resident, agree with note with following additions/exceptions: Patient is 67yo male with PMHx of Lung adenocarcinoma with mets bone, HTN, EtOH abuse, anxiety, depression who [place] [facility] [place] 2 [place] history of shortness of breath. Pt found to have large R sided pleural effusion and possible endobronchial obstruction Pt is currently off biPap, on 4LNC, awake, alert, conversive Currently afebrile, BP stable, comfortable, in NAD, o2 sat 95% on 4LNC Bedside limited US of lung demonstrates loculated R sided pleutral effusions with septations Patient had thoracetnesis yesterday 1.9L removed, bloody, post procedure CXR no PTX Patient with extensive pulmonary disease, and Lung Ca with mets, likely with chronic R sided pleural effusion and possible endobronchial lesion, given the lack of respiratory failure. Doubt mucus plugging, likely possible underlying malignancy of endobronchial entity. Pt for possible endobronchial stenting at [facility], Dr Jacek Haas following Patient stable PNA Pleural Effusion Stage IV Lung AdenoCA EtOH abuse Recommend: - supp o2 as needed, duonebs PRN, BIPAP at night - Broad spectrum abx as per ID Zoe Merblanquita, Doxy - BP control - IVF - follow up Pulm, possible [facility] stenting, a - Palliative care follow up - GI ppx - DVT ppx - stable, transfer to telemetry
--- NOTE | 2018-03-14 10:03 | CP.PCM.PN ---
<Maxim Barfield - Last Filed: 03/14/18 14:09> Subjective - Date & Time of Evaluation Date of Evaluation: 03/14/18 Time of Evaluation: 09:45 - Subjective Subjective: Patient seen and examine at bedside. Patient s/p thoracentesis of the right side with 1.9 liters removed. Admits to improved breathing status. Denies chest pain, shortness of breath, nausea, vomiting, diarrhea, fever, chills. Objective - Vital Signs/Intake and Output Vital Signs (last 24 hours): Temp Pulse Resp BP Pulse Ox 97.8 F 85 24 118/63 100 03/14/18 04:00 03/14/18 06:00 03/13/18 22:59 03/13/18 23:00 03/13/18 21:00 Intake and Output: 03/14/18 03/14/18 06:59 18:59 Intake Total 710 Output Total 250 Balance 460 - Medications Medications: Current Medications Acetylcysteine (Acetylcysteine 20%) 4 ml IH BIDRESP [facility] Last Admin: 03/14/18 07:25 Dose: 4 ml Albuterol/Ipratropium (Duoneb 3 Mg/0.5 Mg (3 Ml) Ud) 3 ml IH Q2H PRN PRN Reason: Shortness of Breath Last Admin: 03/12/18 07:42 Dose: 3 ml Budesonide (Pulmicort Respules) 0.5 mg IH [id number] [facility] Last Admin: 03/14/18 07:26 Dose: 0.5 mg Ciprofloxacin (Ciloxan 0.3% Oph Soln) 2 drop OU Q6 [facility] Stop: 03/18/18 06:00 Last Admin: 03/14/18 05:37 Dose: 2 drop Doxycycline Hyclate (Doryx) 100 mg PO Q12 [facility]; Protocol Last Admin: 03/13/18 21:10 Dose: 100 mg Duloxetine HCl (Cymbalta) 60 mg PO DAILY [facility] Last Admin: 03/13/18 09:00 Dose: Not Given Enoxaparin Sodium (Lovenox) 40 mg SC DAILY [facility]; Protocol Gabapentin (Neurontin) 300 mg PO TID [facility]; Protocol Last Admin: 03/13/18 18:03 Dose: Not Given Sodium Chloride (Sodium Chloride 0.9%) 1,000 mls @ 30 mls/hr IV .Q24H [facility] Last Admin: 03/13/18 02:35 Dose: 30 mls/hr Meropenem (Merrem Iv 1 Gm Premix) 1 gm in 50 mls @ 12.5 mls/hr IVPB Q12 [facility]; Protocol Stop: 03/21/18 10:01 Last Admin: 03/13/18 21:10 Dose: 12.5 mls/hr Levalbuterol HCl (Xopenex) 0.63 mg IH TIDRESP [facility] Last Admin: 03/14/18 07:26 Dose: 0.63 mg Methylprednisolone (Solu-Medrol) 40 mg IVP Q12 [facility] Last Admin: 03/13/18 21:10 Dose: 40 mg Metoprolol Succinate (Toprol Xl) 100 mg PO DAILY [facility] Last Admin: 03/13/18 09:05 Dose: Not Given Oxycodone HCl (Oxycontin Extended Release Tab) 20 mg PO Q12 [facility] Last Admin: 03/13/18 10:10 Dose: 20 mg Pantoprazole Sodium (Protonix Inj) 40 mg IVP DAILY [facility] Last Admin: 03/13/18 09:00 Dose: 40 mg - Labs Labs: 03/14/18 06:00 03/14/18 06:00 PT 16.2 SECONDS (9.4-12.5) H 03/11/18 20:55 INR 1.41 03/11/18 20:55 APTT 28.5 Seconds (25.1-36.5) 03/11/18 20:55 - Constitutional Appears: Non-toxic, No Acute Distress - Head Exam Head Exam: ATRAUMATIC, NORMAL INSPECTION, NORMOCEPHALIC - ENT Exam ENT Exam: Mucous Membranes Moist - Respiratory Exam Respiratory Exam: Decreased Breath Sounds (On right side), NORMAL BREATHING PATTERN - Cardiovascular Exam Cardiovascular Exam: RRR, +S1, +S2 - GI/Abdominal Exam GI & Abdominal Exam: Soft, Normal Bowel Sounds. absent: Tenderness - Extremities Exam Extremities Exam: Normal Inspection. absent: Pedal Edema - Neurological Exam Neurological Exam: Alert, Awake, Oriented x3 - Psychiatric Exam Psychiatric exam: Normal Affect, Normal Mood - Skin Skin Exam: Intact, Normal Color, Warm Assessment and Plan - Assessment and Plan (Free Text) Plan: Right sided hospital acquired pneumonia Acute kidney injury S/p right-sided thoracentesis Hx of stage IV lung cancer with mets to bone and liver Hx of COPD Hx of HTN Tobacco use Alcohol use Plan Continue Doxycycline and Merrem Blood and urine cultures negative S/p thoracentesis, 1.9 liters removed Repeat procalcitonin still elevated, but downtrending Repeat procalcitonin in AM Continue current medical management Lico, PGY-3 <PierreEverton leeDominicgrupo Gordon S - Last Filed: 03/14/18 19:09> Objective - Vital Signs/Intake and Output Vital Signs (last 24 hours): Temp Pulse Resp BP Pulse Ox 98.4 F 106 H 16 120/66 99 03/14/18 16:00 03/14/18 18:00 03/14/18 11:00 03/14/18 11:00 03/14/18 11:00 Intake and Output: 03/14/18 03/15/18 18:59 06:59 Intake Total 1250 Output Total 0 Balance 1250 - Medications Medications: Current Medications Acetylcysteine (Acetylcysteine 20%) 4 ml IH BIDRESP [facility] Last Admin: 03/14/18 07:25 Dose: 4 ml Albuterol/Ipratropium (Duoneb 3 Mg/0.5 Mg (3 Ml) Ud) 3 ml IH Q2H PRN PRN Reason: Shortness of Breath Last Admin: 03/12/18 07:42 Dose: 3 ml Benzonatate (Tessalon Perles) 100 mg PO TID [facility] Last Admin: 03/14/18 18:05 Dose: 100 mg Budesonide (Pulmicort Respules) 0.5 mg IH [id number] [facility] Last Admin: 03/14/18 07:26 Dose: 0.5 mg Ciprofloxacin (Ciloxan 0.3% Ophth Soln) 2 drop OU Q6 [facility] Stop: 03/18/18 06:00 Last Admin: 03/14/18 18:06 Dose: 2 drop Doxycycline Hyclate (Doryx) 100 mg PO Q12 [facility]; Protocol Last Admin: 03/14/18 10:31 Dose: 100 mg Duloxetine HCl (Cymbalta) 60 mg PO DAILY [facility] Last Admin: 03/14/18 10:31 Dose: 60 mg Enoxaparin Sodium (Lovenox) 40 mg SC DAILY [facility]; Protocol Last Admin: 03/14/18 10:30 Dose: 40 mg Gabapentin (Neurontin) 300 mg PO TID [facility]; Protocol Last Admin: 03/14/18 18:04 Dose: 300 mg Sodium Chloride (Sodium Chloride 0.9%) 1,000 mls @ 30 mls/hr IV .Q24H [facility] Last Admin: 03/13/18 02:35 Dose: 30 mls/hr Meropenem (Merrem Iv 1 Gm Premix) 1 gm in 50 mls @ 12.5 mls/hr IVPB Q12 [facility]; Protocol Stop: 03/21/18 10:01 Last Admin: 03/14/18 10:30 Dose: 12.5 mls/hr Levalbuterol HCl (Xopenex) 0.63 mg IH TIDRESP [facility] Last Admin: 03/14/18 07:26 Dose: 0.63 mg Methylprednisolone (Solu-Medrol) 40 mg IVP Q12 [facility] Last Admin: 03/14/18 10:29 Dose: 40 mg Metoprolol Succinate (Toprol Xl) 100 mg PO DAILY [facility] Last Admin: 03/14/18 10:30 Dose: 100 mg Oxycodone HCl (Oxycontin Extended Release Tab) 20 mg PO Q12 [facility] Last Admin: 03/14/18 10:32 Dose: 20 mg Pantoprazole Sodium (Protonix Ec Tab) 40 mg PO ACB [facility] - Labs Labs: 03/14/18 06:00 03/14/18 06:00 PT 16.2 SECONDS (9.4-12.5) H 03/11/18 20:55 INR 1.41 03/11/18 20:55 APTT 28.5 Seconds (25.1-36.5) 03/11/18 20:55 Assessment and Plan - Assessment and Plan (Free Text) Plan: Infectious diseases Attending Physician Attestation Patient seen and examined, discussed with director global medical affairs. I have reviewed the patient's history of present illness, past medical, social, personal and family histories, pertinent physical exam findings, course so far in this hospital admission, pertinent laboratory and imaging results. I agree with the above findings, assessment and plan. In addition, will continue Doxycycline and Merrem day 3 for right sided HCAP. Overall prognosis is poor in this patient with metastatic lung cancer.
[2018-03-14] MEDS: MethylPREDNISolone 40 mg Vial IVP SCH ×2 (10:29→21:03)
[2018-03-14] MEDS: Meropenem IV 1 gm in NS 1 GM/50 ML BAG IVPB SCH ×2 (10:30→21:03)
[2018-03-14] MEDS: Metoprolol Succinate 100 mg XL Tab PO SCH (10:30)
[2018-03-14] MEDS: Enoxaparin 40 mg Syringe SC SCH (10:30)
[2018-03-14] MEDS: oxyCODONE 20 mg ER Tab (oxyCONTIN) PO SCH ×2 (10:32→21:05)
--- NOTE | 2018-03-14 11:04 | CP.PCM.PN ---
<Neris Irwin - Last Filed: 03/14/18 10:49> Subjective - Date & Time of Evaluation Date of Evaluation: 03/14/18 Time of Evaluation: 09:15 - Subjective Subjective: Neris Irwin Y1 Hospital Progress Note Patient seen and examined at bedside this morning. No acute events reported overnight. S/p thoracentesis yesterday afternoon with 1.9L fluid removed. SOB is much improved, currently on nasal cannula. Offers no complaints at this time. Awaiting patient/family decision for degree of invasive management moving forward. Objective - Vital Signs/Intake and Output Vital Signs (last 24 hours): Temp Pulse Resp BP Pulse Ox 97.8 F 98 H 24 122/71 100 03/14/18 04:00 03/14/18 10:30 03/13/18 22:59 03/14/18 10:30 03/13/18 21:00 Intake and Output: 03/14/18 03/14/18 06:59 18:59 Intake Total 710 Output Total 250 Balance 460 - Medications Medications: Current Medications Acetylcysteine (Acetylcysteine 20%) 4 ml IH BIDRESP [facility] Last Admin: 03/14/18 07:25 Dose: 4 ml Albuterol/Ipratropium (Duoneb 3 Mg/0.5 Mg (3 Ml) Ud) 3 ml IH Q2H PRN PRN Reason: Shortness of Breath Last Admin: 03/12/18 07:42 Dose: 3 ml Budesonide (Pulmicort Respules) 0.5 mg IH [id number] [facility] Last Admin: 03/14/18 07:26 Dose: 0.5 mg Ciprofloxacin (Ciloxan 0.3% [facility]) 2 drop OU Q6 [facility] Stop: 03/18/18 06:00 Last Admin: 03/14/18 05:37 Dose: 2 drop Doxycycline Hyclate (Doryx) 100 mg PO Q12 [facility]; Protocol Last Admin: 03/14/18 10:31 Dose: 100 mg Duloxetine HCl (Cymbalta) 60 mg PO DAILY [facility] Last Admin: 03/14/18 10:31 Dose: 60 mg Enoxaparin Sodium (Lovenox) 40 mg SC DAILY [facility]; Protocol Last Admin: 03/14/18 10:30 Dose: 40 mg Gabapentin (Neurontin) 300 mg PO TID [facility]; Protocol Last Admin: 03/14/18 10:31 Dose: 300 mg Sodium Chloride (Sodium Chloride 0.9%) 1,000 mls @ 30 mls/hr IV .Q24H [facility] Last Admin: 03/13/18 02:35 Dose: 30 mls/hr Meropenem (Merrem Iv 1 Gm Premix) 1 gm in 50 mls @ 12.5 mls/hr IVPB Q12 [facility]; Protocol Stop: 03/21/18 10:01 Last Admin: 03/14/18 10:30 Dose: 12.5 mls/hr Levalbuterol HCl (Xopenex) 0.63 mg IH TIDRESP [facility] Last Admin: 03/14/18 07:26 Dose: 0.63 mg Methylprednisolone (Solu-Medrol) 40 mg IVP Q12 [facility] Last Admin: 03/14/18 10:29 Dose: 40 mg Metoprolol Succinate (Toprol Xl) 100 mg PO DAILY [facility] Last Admin: 03/14/18 10:30 Dose: 100 mg Oxycodone HCl (Oxycontin Extended Release Tab) 20 mg PO Q12 [facility] Last Admin: 03/14/18 10:32 Dose: 20 mg Pantoprazole Sodium (Protonix Inj) 40 mg IVP DAILY [facility] Last Admin: 03/14/18 10:30 Dose: 40 mg - Labs Labs: 03/14/18 06:00 03/14/18 06:00 PT 16.2 SECONDS (9.4-12.5) H 03/11/18 20:55 INR 1.41 03/11/18 20:55 APTT 28.5 Seconds (25.1-36.5) 03/11/18 20:55 - Additional Findings Additional findings: - Constitutional Appears: Non-toxic, Cachectic - Head Exam Head Exam: ATRAUMATIC, NORMOCEPHALIC - Eye Exam Eye Exam: EOMI, Normal appearance - ENT Exam ENT Exam: Mucous Membranes Dry - Respiratory Exam Respiratory Exam: Decreased Breath Sounds (right lung field), Rales (left lung) - Cardiovascular Exam Cardiovascular Exam: Tachycardia, +S1, +S2 - GI/Abdominal Exam GI & Abdominal Exam: Soft, Normal Bowel Sounds - Extremities Exam Extremities Exam: Normal Inspection. 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 Patient is admitted to ICU for management and treatment of hypoxemic respiratory failure. Plan: Right pleural effusion -initial CXR showed diffuse R sided white out w/ tracheal deviation towards the left ; Cardiac plueral effusion vs Malignant pleural effusion vs atelcatsis vs pneumonia -CT Chest showed complete atelectasis of the right lung with endobronchial obstruction, large right pleural effusion -s/p thoracentesis on 03/13/18 with 1.9L fluid removed -pleural fluid cytology pending -sputum culture pending, urine culture negative, blood culture negative for 48 hours -continue doxy, merrem day 3. Unknown source of infection -solumedrol 40 q12, pulmicort, mucomyst, xopenex -afebrile, WBC downtrending, procalc downtrending -echo shows EF 53%, RVSP 61 -trops are indeterminate -IR, pulm, cardio consult Hx of stage 4 non small cell lung cancer -mets to the liver, lungs, bone -currently on immunotherapy -candidate for laser ablation of the right main stem with stent and tumor debul lexa -patient/family to make decision in regards to degree of aggressive treatment. May need transfer to receive treatment -heme/onc on consult Tachycardia -vitals reviewed, pulse overnight 105-120 -continue home toprol XL 100mg, may need escalation in therapy Conjunctivitis -L eye > R eye -improving -topical ciprofloxacin SAUD - resolved -Cr is 1 today from 1.1 -gentle hydration 30cc PPX/Diet -lovenox protonix -HHD Patient seen and case discussed with attending, Dr. Mckenzie <Tim Mckenzie - Last Filed: 03/14/18 17:39> Objective - Vital Signs/Intake and Output Vital Signs (last 24 hours): Temp Pulse Resp BP Pulse Ox 99.1 F 102 H 16 120/66 99 03/14/18 12:00 03/14/18 14:00 03/14/18 11:00 03/14/18 11:00 03/14/18 11:00 Intake and Output: 03/14/18 03/14/18 06:59 18:59 Intake Total 710 Output Total 250 Balance 460 - Medications Medications: Current Medications Acetylcysteine (Acetylcysteine 20%) 4 ml IH BIDRESP [facility] Last Admin: 03/14/18 07:25 Dose: 4 ml Albuterol/Ipratropium (Duoneb 3 Mg/0.5 Mg (3 Ml) Ud) 3 ml IH Q2H PRN PRN Reason: Shortness of Breath Last Admin: 03/12/18 07:42 Dose: 3 ml Benzonatate (Tessalon Perles) 100 mg PO TID [facility] Last Admin: 03/14/18 13:49 Dose: 100 mg Budesonide (Pulmicort Respules) 0.5 mg IH [id number] [facility] Last Admin: 03/14/18 07:26 Dose: 0.5 mg Ciprofloxacin (Ciloxan 0.3% Ophth Soln) 2 drop OU Q6 [facility] Stop: 03/18/18 06:00 Last Admin: 03/14/18 13:00 Dose: 2 drop Doxycycline Hyclate (Doryx) 100 mg PO Q12 [facility]; Protocol Last Admin: 03/14/18 10:31 Dose: 100 mg Duloxetine HCl (Cymbalta) 60 mg PO DAILY [facility] Last Admin: 03/14/18 10:31 Dose: 60 mg Enoxaparin Sodium (Lovenox) 40 mg SC DAILY [facility]; Protocol Last Admin: 03/14/18 10:30 Dose: 40 mg Gabapentin (Neurontin) 300 mg PO TID [facility]; Protocol Last Admin: 03/14/18 13:49 Dose: 300 mg Sodium Chloride (Sodium Chloride 0.9%) 1,000 mls @ 30 mls/hr IV .Q24H [facility] Last Admin: 03/13/18 02:35 Dose: 30 mls/hr Meropenem (Merrem Iv 1 Gm Premix) 1 gm in 50 mls @ 12.5 mls/hr IVPB Q12 [facility]; Protocol Stop: 03/21/18 10:01 Last Admin: 03/14/18 10:30 Dose: 12.5 mls/hr Levalbuterol HCl (Xopenex) 0.63 mg IH TIDRESP [facility] Last Admin: 03/14/18 07:26 Dose: 0.63 mg Methylprednisolone (Solu-Medrol) 40 mg IVP Q12 [facility] Last Admin: 03/14/18 10:29 Dose: 40 mg Metoprolol Succinate (Toprol Xl) 100 mg PO DAILY [facility] Last Admin: 03/14/18 10:30 Dose: 100 mg Oxycodone HCl (Oxycontin Extended Release Tab) 20 mg PO Q12 [facility] Last Admin: 03/14/18 10:32 Dose: 20 mg Pantoprazole Sodium (Protonix Ec Tab) 40 mg PO ACB [facility] - Labs Labs: 03/14/18 06:00 03/14/18 06:00 PT 16.2 SECONDS (9.4-12.5) H 03/11/18 20:55 INR 1.41 03/11/18 20:55 APTT 28.5 Seconds (25.1-36.5) 03/11/18 20:55 Attending/Attestation - Attestation I have personally seen and examined this patient.: Yes I have fully participated in the care of the patient.: Yes I have reviewed all pertinent clinical information, including history, physical exam and plan: Yes
--- NOTE | 2018-03-14 13:03 | PN ---
DATE: 03/14/2018 REFERRING PHYSICIAN: Jay Elizabeth MD SUBJECTIVE: The patient is sitting up at bedside with physical therapy in room, reports feeling better today, has coughing at nighttime, shortness of breath with exertion but it has improved. The patient had pleural tap yesterday and greater than 1.9 L of fluid was removed. No headache, rhinitis, chest pain, abdominal pain, nausea, vomiting, diarrhea, leg pain or leg swelling reported. OBJECTIVE: GENERAL: In no acute distress. VITAL SIGNS: Blood pressure 120/62, pulse 89, oxygen saturations 95%, and temperature 97.8. HEENT: Moist mucous membranes. Mallampati score is 4. NECK: Supple, no JVD. RESPIRATORY: Crackles to left lower lobe, diminished breath sounds at right lower lobe. CARDIOVASCULAR: S1 and S2 audible. ABDOMEN: Soft and nontender. No distention, no organomegaly. EXTREMITIES: +1 bilateral lower extremity edema. NEUROLOGIC: Awake, alert, verbal, follows commands. LABORATORY DATA: Reviewed. WBC 9.3, RBC 3.67, hemoglobin 9.7, hematocrit 31.6, platelets 124. Sodium 138, potassium 4.5, chloride 104, carbon dioxide 32, anion gap 7, BUN 31, creatinine 1, GFR greater than 60, random glucose 148, calcium 7.9, total bilirubin 1, AST 56, ALT 47, alkaline phosphatase 89, total protein 5.1, albumin 2.4, globulin 2.7, albumin-globulin ratio 0.9, and procalcitonin 0.74. Chest x-ray shows no adverse findings following recovery of 1.9 L of fluid from the right pleural space, persistent opacification on right hemithorax, likely residual compressive atelectasis. MEDICATIONS: Reviewed. Mucomyst 4 mL inhalation twice a day, DuoNeb 10 mL inhalation every 12 hours p.r.n., Pulmicort 0.5 mg every 12 hours, ciprofloxacin eyedrops every 6 hours, doxycycline 100 mg every 12 hours, Cymbalta 60 mg daily, Lovenox 40 mg subcutaneously daily, gabapentin 300 mg 3 times a day, Xopenex 0.63 mg inhalation 3 times a day, meropenem 1 g every 12 hours, Solu-Medrol 40 mg every 12 hours, metoprolol succinate 100 mg daily, oxycodone 20 mg every 12 hours, Protonix 40 mg IV push daily, sodium chloride 0.9% 1000 mL, 30 mL per hour. IMPRESSION AND PLAN: Stage IV metastatic non-small cell carcinoma of the right lung, pneumonia, hypertension, ethanol abuse, anxiety, depression, right-side pleural effusion, status post pleural tap. Continue gastroesophageal reflux disease prophylaxis, deep venous thrombosis prophylaxis, and inhaled bronchodilators. Continue antibiotic therapy. Dr. Read spoke with and Dr. Vaughn yesterday, awaiting family's and the patient's decision as to whether to go forward with bronchial stenting and debulking of the tumor. Spoke with Dr. Early at [facility] who recommended placing chest tube due to reaccumulation of fluid after thoracentesis. Will consult Dr. Izquierdo for chest tube placement. Awaiting family's decision regarding extend of treatment. We will order followup labs in the morning. Head of bed elevated at 45 degrees. We will order Tessalon Perles for cough. Critical care time spent more than 35 minutes. This patient was seen and examined with Dr. Read. Discussed assessment and plan as described above. Thank you for this consult. We will follow with you. Mark Luke APN Fred Read MD FAMILIA
--- NOTE | 2018-03-14 15:05 | CP.PCM.APN ---
Subjective - Date & Time of Evaluation Date of Evaluation: 03/14/18 Time of Evaluation: 11:00 - Subjective Subjective: pt seen in bed in the ICu , reports feeling better, NAD Review of Systems - Constitutional Constitutional: Fatigue Objective - Vital Signs/Intake and Output Vital Signs (last 24 hours): Temp Pulse Resp BP Pulse Ox 97.8 F 104 H 16 120/66 99 03/14/18 04:00 03/14/18 11:00 03/14/18 11:00 03/14/18 11:00 03/14/18 11:00 Intake and Output: 03/14/18 03/14/18 06:59 18:59 Intake Total 710 Output Total 250 Balance 460 - Medications Medications: Current Medications Acetylcysteine (Acetylcysteine 20%) 4 ml IH BIDRESP [facility] Last Admin: 03/14/18 07:25 Dose: 4 ml Albuterol/Ipratropium (Duoneb 3 Mg/0.5 Mg (3 Ml) Ud) 3 ml IH Q2H PRN PRN Reason: Shortness of Breath Last Admin: 03/12/18 07:42 Dose: 3 ml Benzonatate (Tessalon Perles) 100 mg PO TID [facility] Last Admin: 03/14/18 13:49 Dose: 100 mg Budesonide (Pulmicort Respules) 0.5 mg IH [id number] [facility] Last Admin: 03/14/18 07:26 Dose: 0.5 mg Ciprofloxacin (Ciloxan 0.3% Ophth Soln) 2 drop OU Q6 [facility] Stop: 03/18/18 06:00 Last Admin: 03/14/18 13:00 Dose: 2 drop Doxycycline Hyclate (Doryx) 100 mg PO Q12 [facility]; Protocol Last Admin: 03/14/18 10:31 Dose: 100 mg Duloxetine HCl (Cymbalta) 60 mg PO DAILY [facility] Last Admin: 03/14/18 10:31 Dose: 60 mg Enoxaparin Sodium (Lovenox) 40 mg SC DAILY [facility]; Protocol Last Admin: 03/14/18 10:30 Dose: 40 mg Gabapentin (Neurontin) 300 mg PO TID [facility]; Protocol Last Admin: 03/14/18 13:49 Dose: 300 mg Sodium Chloride (Sodium Chloride 0.9%) 1,000 mls @ 30 mls/hr IV .Q24H [facility] Last Admin: 03/13/18 02:35 Dose: 30 mls/hr Meropenem (Merrem Iv 1 Gm Premix) 1 gm in 50 mls @ 12.5 mls/hr IVPB Q12 [facility]; Protocol Stop: 03/21/18 10:01 Last Admin: 03/14/18 10:30 Dose: 12.5 mls/hr Levalbuterol HCl (Xopenex) 0.63 mg IH TIDRESP [facility] Last Admin: 03/14/18 07:26 Dose: 0.63 mg Methylprednisolone (Solu-Medrol) 40 mg IVP Q12 [facility] Last Admin: 03/14/18 10:29 Dose: 40 mg Metoprolol Succinate (Toprol Xl) 100 mg PO DAILY [facility] Last Admin: 03/14/18 10:30 Dose: 100 mg Oxycodone HCl (Oxycontin Extended Release Tab) 20 mg PO Q12 [facility] Last Admin: 03/14/18 10:32 Dose: 20 mg Pantoprazole Sodium (Protonix Inj) 40 mg IVP DAILY [facility] Last Admin: 03/14/18 10:30 Dose: 40 mg - Labs Labs: 03/14/18 06:00 03/14/18 06:00 PT 16.2 SECONDS (9.4-12.5) H 03/11/18 20:55 INR 1.41 03/11/18 20:55 APTT 28.5 Seconds (25.1-36.5) 03/11/18 20:55 - Constitutional Appears: No Acute Distress, Older Than Stated Age - Respiratory Exam Respiratory Exam: Decreased Breath Sounds, NORMAL BREATHING PATTERN - Cardiovascular Exam Cardiovascular Exam: +S1, +S2 - GI/Abdominal Exam GI & Abdominal Exam: Soft - Neurological Exam Neurological Exam: Alert, Awake Assessment and Plan - Assessment and Plan (Free Text) Plan: ITS Impressions Chest X-Ray 03/11/18 20:28 IMPRESSION: There is complete opacification of the right hemithorax. There is no mediastinal shift Chest CT 03/11/18 23:21 IMPRESSION: There is complete atelectasis of the right lung with endobronchial obstruction. There is a large right pleural effusion. Chest X-Ray 03/12/18 06:00 IMPRESSION: There is complete opacification of the right lung. This is unchanged. There is no mediastinal shift Thoracentesis Ultrasound 03/13/18 09:39 IMPRESSION: 1. Ultrasound guided right thoracentesis. 1900 cc of bloody fluid were aspirated. A cytology specimen was sent Chest X-Ray 03/13/18 09:41 IMPRESSION: There is complete opacification of the right hemithorax which is unchanged Chest X-Ray 03/13/18 16:52 IMPRESSION: No adverse findings following recovery of 1.9 L of fluid from the right pleural space. Persistent opacification of right hemithorax likely residual compressive atelectasis. All Active Problems Lung cancer (Acute) Pneumonia (Acute) Sepsis (Acute) 67 yr old male with pmh sif for 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 , lungs and bone admitted tot he ICU for mgmt after presenting to the ED with worsening SOB and hypoxic resp failure, sepsis and new onset chf , right lung white out and pleural effusion pt s/p thoracentesis with cardiac, renal,pul and oncology consultations resp failure- weaned off bipap, iv steriods, pul ecs noted pleural effusion cardiac vs malignant - s/p thoracentesis 1.9 L removed , pleural cytology pending sepsis/right lung pne- Iv antibiotic, ID recs noted stage IV metastatic ca- decision on whether to proceed with broncial stenting and tumor debulking pending ( @[facility]?) pt and family to decide extent of interventions with current prognosis will continue to follow BPCI/TIC - BPCIA/TIC Educated pt/family on BPCIA/CIR/Med to Bed Programs: Yes Flyers given, including [facility] Beneficiary letter: Yes Pt/family verbalized understanding & agreed to program: Yes
[2018-03-15] MEDS: Ciprofloxacin 0.3% OPTH SOLN OU SCH ×4 (00:05→17:28)
[2018-03-15 07:13] LABS: BASO # 0.01 K/mm3 (0.0-2.0); BASO % 0.1 % (0.0-3.0); GRAN # 17.39 (1.4-6.5); GRAN % 90.6 % (50.0-68.0); HEMOGLOBIN 10.4 g/dL (14.0-18.0); LYMPH # 0.9 (1.2-3.4); LYMPH % 4.7 % (22.0-35.0); MEAN CELL VOLUME 88.1 fl (80.0-105.0); MEAN CORPUSCULAR HEMOGLOBIN 26.3 pg (25.0-35.0); MEAN CORPUSCULAR HGB CONC 29.8 g/dl (31.0-37.0); MEAN PLATELET VOLUME 10.6 fl (7.0-11.0); MONO # 0.9 (0.1-0.6); MONO % 4.6 % (1.0-6.0); PLATELET COUNT 194 10^3/uL (120.0-450.0); RBC 3.96 10^6/uL (3.5-6.1); RED CELL DISTRIBUTION WIDTH 16.3 % (11.5-14.5); WHITE BLOOD COUNT 19.2 10^3/uL (4.5-11.0)
[2018-03-15 07:15] LABS: ALBUMIN 2.7 g/dL (3.0-4.8); ALT/SGPT 41 U/L (7-56); AST/SGOT 32 U/L (17-59); BLOOD UREA NITROGEN 38 mg/dL (7-21); CALCIUM 8.5 mg/dL (8.4-10.5); GFR NON-AFRICAN AMERICAN > 60
[2018-03-15 07:58] LABS: LYMPHOCYTE 7 % (22.0-35.0); MONOCYTE 2 % (1.0-6.0); NEUTROPHIL 91 % (50.0-70.0)
[2018-03-15 07:59] LABS: PLATELET ESTIMATE NORMAL (NORMAL)
[2018-03-15] MEDS: Pantoprazole 40 mg EC Tab PO SCH (08:00)
[2018-03-15] MEDS: Acetylcysteine 20% Inhal Soln (4ml) IH SCH ×2 (08:49→20:31)
[2018-03-15] MEDS: Budesonide 0.5 mg/2 ml Inhal Susp UD IH SCH ×2 (08:49→20:31)
[2018-03-15] MEDS: Levalbuterol 0.63 MG/3 ML Inhal Soln UD IH SCH ×3 (08:49→20:32)
--- NOTE | 2018-03-15 10:11 | PN ---
DATE: 03/15/2018 SUBJECTIVE: The patient is seen early this morning, appears to be comfortable. No fevers, no chills. The patient has been afebrile, had uneventful night. PHYSICAL EXAMINATION: VITAL SIGNS: Temperature is 97, blood pressure is 100/60, respiratory rate of 18, and heart rate of 59. HEENT: Unremarkable. NECK: Supple. LUNGS: Have decreased breath sounds. HEART: Normal S1, S2. ABDOMEN: Soft, nontender. LABORATORY EXAMINATION: Reveals the white count is up to 19,200, hemoglobin of 10. BUN of 38, creatinine is 1.1. Procalcitonin is 0.74. Microbiology reveals the blood cultures are negative. Urine cultures are negative. Review of orders reveals the patient to be on meropenem. The patient is also on Solu-Medrol which was started on 03/13/2018. The patient is also on doxycycline. ASSESSMENT AND PLAN: A 67-year-old male, status post thoracentesis, right-sided with 1.9 liters removed and extubated, with right-sided healthcare-associated pneumonia, acute kidney injury, stage IV lung cancer with metastases to bone and liver, chronic obstructive lung disease, hypertension, alcohol abuse. Currently, on doxycycline and meropenem. Today is day #4 of doxycycline and meropenem, and we will make further recommendations upon availability of initial results. We will follow with you. Edgard Mackey MD
[2018-03-15] MEDS: Enoxaparin 40 mg Syringe SC SCH (10:50)
[2018-03-15] MEDS: Meropenem IV 1 gm in NS 1 GM/50 ML BAG IVPB SCH ×2 (10:50→22:18)
[2018-03-15] MEDS: oxyCODONE 20 mg ER Tab (oxyCONTIN) PO SCH ×2 (10:51→22:17)
[2018-03-15] MEDS: Metoprolol Succinate 100 mg XL Tab PO SCH (10:52)
[2018-03-15] MEDS: MethylPREDNISolone 40 mg Vial IVP SCH ×2 (10:53→22:17)
[2018-03-15] MEDS: Sodium Chloride 0.9% 1,000 ML IV SCH (11:28)
--- NOTE | 2018-03-15 12:42 | PN ---
DATE: 03/14/2018 SUBJECTIVE: The patient is resting in bed with nasal cannula, awake and alert. No complaints of respiratory distress. No chest pain. No shortness of breath. No cough. No wheezing. The patient is very comfortable. PHYSICAL EXAMINATION: VITAL SIGNS: His temperature is 97.5, pulse is 77, respirations of 19 and BP is 105/55. SKIN: Warm and dry. HEENT: Head is atraumatic, normocephalic. Eyes reactive to light. Ear, nose, and throat seemed to be within normal limits. NECK: Supple. No JVD. No thyroid enlargement, no lymph nodes. HEART: Has regular rate and rhythm. Normal S1, S2. LUNGS: Reveal decreased breath sounds on the right. No significant rales or rhonchi. ABDOMEN: Soft, decreased bowel sounds. GENITALIA: Deferred. RECTAL: Deferred. MUSCULOSKELETAL: No joint deformities. EXTREMITIES: Reveal trace lower extremity edema. NEUROLOGIC: He seemed to be grossly intact. LABORATORY DATA: His white count is 19.2, hemoglobin is 10.4 and his hematocrit 34.9 with platelets of 194,000. His sodium is 137, potassium 4.8, chloride 102, CO2 of 30 with a BUN of 38, creatinine of 1.1 and a glucose of 125. IMPRESSION: This patient has a stage IV lung cancer who presented with massive right-sided pleural effusion and is status post thoracentesis. The patient also is noted to have a history of EtOH abuse, anxiety, depression, gastroesophageal reflux disease deep venous thrombosis and at present does have anemia and there may be a component of pneumonia as well. PLAN: We will continue with aggressive pulmonary toilet. The patient is on O2 via nasal cannula. He is getting ciprofloxacin as an antibiotic as well as doxycycline. He is getting DuoNeb for bronchodilatation and Lovenox prophylactically. The patient is on meropenem as well as Neurontin, Pulmicort, Protonix, Tessalon Perles and Xopenex. We shall treat him aggressively along with the other consultants and the primary care doctor. Julian Hanley MD [facility] # [id number]
--- NOTE | 2018-03-15 12:48 | CP.PCM.PN ---
<Adam Pena - Last Filed: 03/15/18 12:44> Subjective - Date & Time of Evaluation Date of Evaluation: 03/15/18 Time of Evaluation: 06:00 - Subjective Subjective: Patient evaluated in bedside in AM. No acute issues overnight. Patient states his breathing has improved and he feels better. No other complaints as this time. Currently awaiting patient/family decision for degree of invasive management moving forward. Objective - Vital Signs/Intake and Output Vital Signs (last 24 hours): Temp Pulse Resp BP Pulse Ox 97.5 F L 77 19 105/55 L 98 03/15/18 08:00 03/15/18 10:52 03/15/18 07:00 03/15/18 10:52 03/15/18 07:00 Intake and Output: 03/15/18 03/15/18 06:59 18:59 Intake Total 400 Output Total 600 Balance -200 - Medications Medications: Current Medications Acetylcysteine (Acetylcysteine 20%) 4 ml IH BIDRESP [facility] Last Admin: 03/15/18 08:49 Dose: 4 ml Albuterol/Ipratropium (Duoneb 3 Mg/0.5 Mg (3 Ml) Ud) 3 ml IH Q2H PRN PRN Reason: Shortness of Breath Last Admin: 03/12/18 07:42 Dose: 3 ml Benzonatate (Tessalon Perles) 100 mg PO TID [facility] Last Admin: 03/15/18 10:52 Dose: 100 mg Budesonide (Pulmicort Respules) 0.5 mg IH [id number] [facility] Last Admin: 03/15/18 08:49 Dose: 0.5 mg Ciprofloxacin ([facility]oxan 0[facility]% [facility] 2 drop OU Q6 [facility] Stop: 03/18/18 06:00 Last Admin: 03/15/18 06:05 Dose: 2 drop Doxycycline Hyclate (Doryx) 100 mg PO Q12 [facility]; Protocol Last Admin: 03/15/18 10:51 Dose: 100 mg Duloxetine HCl (Cymbalta) 60 mg PO DAILY [facility] Last Admin: 03/15/18 10:52 Dose: 60 mg Enoxaparin Sodium (Lovenox) 40 mg SC DAILY [facility]; Protocol Last Admin: 03/15/18 10:50 Dose: 40 mg Gabapentin (Neurontin) 300 mg PO TID [facility]; Protocol Last Admin: 03/15/18 10:50 Dose: 300 mg Sodium Chloride (Sodium Chloride 0.9%) 1,000 mls @ 30 mls/hr IV .Q24H [facility] Last Admin: 03/15/18 11:28 Dose: 30 mls/hr Meropenem (Merrem Iv 1 Gm Premix) 1 gm in 50 mls @ 12.5 mls/hr IVPB Q12 [facility]; Protocol Stop: 03/21/18 10:01 Last Admin: 03/15/18 10:50 Dose: 12.5 mls/hr Levalbuterol HCl (Xopenex) 0.63 mg IH TIDRESP [facility] Last Admin: 03/15/18 08:49 Dose: 0.63 mg Methylprednisolone (Solu-Medrol) 40 mg IVP Q12 [facility] Last Admin: 03/15/18 10:53 Dose: 40 mg Metoprolol Succinate (Toprol Xl) 100 mg PO DAILY [facility] Last Admin: 03/15/18 10:52 Dose: 100 mg Oxycodone HCl (Oxycontin Extended Release Tab) 20 mg PO Q12 [facility] Last Admin: 03/15/18 10:51 Dose: 20 mg Pantoprazole Sodium (Protonix Ec Tab) 40 mg PO ACB [facility] Last Admin: 03/15/18 08:00 Dose: 40 mg - Labs Labs: 03/15/18 06:30 03/15/18 06:30 PT 16.2 SECONDS (9.4-12.5) H 03/11/18 20:55 INR 1.41 03/11/18 20:55 APTT 28.5 Seconds (25.1-36.5) 03/11/18 20:55 - Constitutional Appears: Toxic, Cachectic - Head Exam Head Exam: ATRAUMATIC, NORMAL INSPECTION, NORMOCEPHALIC - Eye Exam Eye Exam: EOMI, Normal appearance - Respiratory Exam Respiratory Exam: Decreased Breath Sounds, Rales - Cardiovascular Exam Cardiovascular Exam: +S1, +S2 - Extremities Exam Extremities Exam: Full ROM. 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 Patient iwas admitted to ICU for management and treatment of hypoxemic respiratory failure. Downgraded to telemtry. Plan: Right pleural effusion -initial CXR showed diffuse R sided white out w/ tracheal deviation towards the left ; Cardiac plueral effusion vs Malignant pleural effusion vs atelcatsis vs pneumonia -CT Chest showed complete atelectasis of the right lung with endobronchial obstruction, large right pleural effusion -s/p thoracentesis on 03/13/18 with 1.9L fluid removed -pleural fluid cytology pending -sputum culture pending, urine culture negative, blood culture negative for 48 hours -continue doxy, merrem day 4. Unknown source of infection -solumedrol 40 q12, pulmicort, mucomyst, xopenex -afebrile, WBC downtrending, procalc downtrending -echo shows EF 53%, RVSP 61 -trops are indeterminate -IR, pulm, cardio consult -repeat procal pending Hx of stage 4 non small cell lung cancer -mets to the liver, lungs, bone -currently on immunotherapy -candidate for laser ablation of the right main stem with stent and tumor debulk ing -patient/family to make decision in regards to degree of aggressive treatment. May need transfer to receive treatment -heme/onc on consult Tachycardia-resolved -continue home toprol XL 100mg, may need escalation in therapy Conjunctivitis -L eye > R eye -improving -topical ciprofloxacin SAUD - resolved -Cr 1.1 -NS@ 30cc PPX/Diet -lovenox protonix -HHD Patient seen and case discussed with attending, Dr. Mckenzie <Tim Mckenzie - Last Filed: 03/15/18 13:41> Objective - Vital Signs/Intake and Output Vital Signs (last 24 hours): Temp Pulse Resp BP Pulse Ox 97.5 F L 77 19 105/55 L 98 03/15/18 08:00 03/15/18 10:52 03/15/18 07:00 03/15/18 10:52 03/15/18 07:00 Intake and Output: 03/15/18 03/15/18 06:59 18:59 Intake Total 400 Output Total 600 Balance -200 - Medications Medications: Current Medications Acetylcysteine (Acetylcysteine 20%) 4 ml IH BIDRESP [facility] Last Admin: 03/15/18 08:49 Dose: 4 ml Albuterol/Ipratropium (Duoneb 3 Mg/0.5 Mg (3 Ml) Ud) 3 ml IH Q2H PRN PRN Reason: Shortness of Breath Last Admin: 03/12/18 07:42 Dose: 3 ml Benzonatate (Tessalon Perles) 100 mg PO TID [facility] Last Admin: 03/15/18 13:22 Dose: 100 mg Budesonide (Pulmicort Respules) 0.5 mg IH [id number] [facility] Last Admin: 03/15/18 08:49 Dose: 0.5 mg Ciprofloxacin (Ciloxan 0.3% Ophth Soln) 2 drop OU Q6 [facility] Stop: 03/18/18 06:00 Last Admin: 03/15/18 13:24 Dose: 2 drop Doxycycline Hyclate (Doryx) 100 mg PO Q12 [facility]; Protocol Last Admin: 03/15/18 10:51 Dose: 100 mg Duloxetine HCl (Cymbalta) 60 mg PO DAILY [facility] Last Admin: 03/15/18 10:52 Dose: 60 mg Enoxaparin Sodium (Lovenox) 40 mg SC DAILY [facility]; Protocol Last Admin: 03/15/18 10:50 Dose: 40 mg Gabapentin (Neurontin) 300 mg PO TID [facility]; Protocol Last Admin: 03/15/18 13:22 Dose: 300 mg Sodium Chloride (Sodium Chloride 0.9%) 1,000 mls @ 30 mls/hr IV .Q24H [facility] Last Admin: 03/15/18 11:28 Dose: 30 mls/hr Meropenem (Merrem Iv 1 Gm Premix) 1 gm in 50 mls @ 12.5 mls/hr IVPB Q12 [facility]; Protocol Stop: 03/21/18 10:01 Last Admin: 03/15/18 10:50 Dose: 12.5 mls/hr Levalbuterol HCl (Xopenex) 0.63 mg IH TIDRESP [facility] Last Admin: 03/15/18 08:49 Dose: 0.63 mg Methylprednisolone (Solu-Medrol) 40 mg IVP Q12 [facility] Last Admin: 03/15/18 10:53 Dose: 40 mg Metoprolol Succinate (Toprol Xl) 100 mg PO DAILY [facility] Last Admin: 03/15/18 10:52 Dose: 100 mg Oxycodone HCl (Oxycontin Extended Release Tab) 20 mg PO Q12 [facility] Last Admin: 03/15/18 10:51 Dose: 20 mg Pantoprazole Sodium (Protonix Ec Tab) 40 mg PO ACB [facility] Last Admin: 03/15/18 08:00 Dose: 40 mg - Labs Labs: 03/15/18 06:30 03/15/18 06:30 PT 16.2 SECONDS (9.4-12.5) H 03/11/18 20:55 INR 1.41 03/11/18 20:55 APTT 28.5 Seconds (25.1-36.5) 03/11/18 20:55 Attending/Attestation - Attestation I have personally seen and examined this patient.: Yes I have fully participated in the care of the patient.: Yes I have reviewed all pertinent clinical information, including history, physical exam and plan: Yes Notes (Text): Patient seen and examined with the residents, agree with above Malignant pleural effusion most s/p IR thoracentesis with improvement of symptoms Hemodynamically stable. States he would like to discuss his treatment options with his family
--- NOTE | 2018-03-15 20:38 | PN ---
DATE: 03/15/2018 PULMONARY CRITICAL CARE PROGRESS NOTE REFERRING PHYSICIAN: Dr. Early SUBJECTIVE: He is lying in the bed at 45 degrees and on supplemental oxygen. Has a cough and shortness of breath. No hemoptysis, hem or emesis. No hematuria. No diarrhea. No leg pain or leg swelling. OBJECTIVE: GENERAL: No acute distress. VITAL SIGNS: Temp is 98, heart rate is 77, respiratory rate is 20, blood pressure 105/55, pulse ox 98% on nasal cannula. HEENT: Moist mucous membrane. Crowded airway. NECK: Supple. No JVD. LUNGS: Have no breath sounds on the right lung. Few scattered rhonchi on the left lung. HEART: S1 and S2. ABDOMEN: Soft, nontender, nondistended. EXTREMITIES: No edema. NEUROLOGIC: Awake and follows simple command. MEDICATIONS: He is on Mucomyst inhaled twice a day, Cipro ophthalmic solution every 6 hours, Cymbalta 60 mg daily, doxycycline 100 mg twice a day, DuoNeb every 2 hours p.r.n., Lovenox 40 mg subcu daily, meropenem 1 g IV every 12 hours, gabapentin 300 mg three times a day, OxyContin extended release 20 mg every 12 hours, Protonix 40 mg before breakfast, Pulmicort inhaled twice a day, IV fluid normal saline 30 mL per hour, Solu-Medrol 40 mg every 12 hours, Tessalon Perles 100 mg three times a day, Toprol-XL 100 mg daily, Xopenex inhaled every 12 hours. LABORATORY DATA: Shows hemoglobin 10.4, hematocrit 34.9, WBC 19,000, platelet is 194. Sodium 137, potassium 4.8, chloride 102, bicarbonate 30, BUN 38, creatinine 1.1, glucose 125, calcium 8.5. AST 32, ALT 41, alk phos is 92, albumin is 2.7. Procalcitonin is 0.74. Microbiology: Blood culture and urine culture are unremarkable. IMPRESSION AND PLAN: History of [id number] cancer of the lung, pneumonia, hypertension, history of alcohol abuse, anxiety disorder, white-out right lung, history of gastroesophageal reflux disease. Case was discussed with the patient's primary oncologist, Dr. Richey. Also his old CT scan copy reviewed from [facility] which was done in 09/2017 where he does not have any endobronchial lesion. He did have some infiltrates and atelectasis. According to Dr. Richey who is his primary oncologist, his last PET scan which done last year was unremarkable for any metastatic or primary disease. After discussing with Dr. Richey, I spoke to the patient in detail. Recommended that we should put a chest tube to drain the fluid and do CAT scan and see what is behind it. If there is endobronchial lesion, need bronchoscopy and further workup. The patient expressed understanding at present and does not want any invasive procedure. We will speak to his family and let me know if he wants further aggressive workup including chest tube placement, bronchoscopy and possible stenting and also biopsy in the lesion if there is any. Follow up labs in the morning. Critical care time more than 35 minutes. Thank you and we will follow with you. Fred Read MD
[2018-03-16] MEDS: Sodium Chloride 0.9% 1,000 ML IV SCH (02:00)
[2018-03-16] MEDS: Ciprofloxacin 0.3% OPTH SOLN OU SCH ×4 (06:30→18:11)
[2018-03-16] MEDS: Acetylcysteine 20% Inhal Soln (4ml) IH SCH ×2 (07:36→20:50)
[2018-03-16] MEDS: Levalbuterol 0.63 MG/3 ML Inhal Soln UD IH SCH ×3 (07:37→20:50)
[2018-03-16] MEDS: Budesonide 0.5 mg/2 ml Inhal Susp UD IH SCH ×2 (07:37→20:50)
[2018-03-16 07:40] LABS: GRAN # 12.45 (1.4-6.5); GRAN % 90.4 % (50.0-68.0); LYMPH # 0.6 (1.2-3.4); LYMPH % 4.6 % (22.0-35.0); MEAN CELL VOLUME 86.3 fl (80.0-105.0); MEAN CORPUSCULAR HEMOGLOBIN 26.3 pg (25.0-35.0); MEAN CORPUSCULAR HGB CONC 30.5 g/dl (31.0-37.0); MEAN PLATELET VOLUME 10.4 fl (7.0-11.0); MONO # 0.7 (0.1-0.6); RBC 3.8 10^6/uL (3.5-6.1); RED CELL DISTRIBUTION WIDTH 16.2 % (11.5-14.5); WHITE BLOOD COUNT 13.8 10^3/uL (4.5-11.0)
--- NOTE | 2018-03-16 07:55 | CP.PCM.PN ---
<Adam Pena - Last Filed: 03/16/18 12:45> Subjective - Date & Time of Evaluation Date of Evaluation: 03/16/18 Time of Evaluation: 05:00 - Subjective Subjective: Patient seen and examined bedside. No acute issues overnight. Patient denies any complaints. Communicated to patient that his pleural effusion is reoccuring and he may need drainage and or chest tube. Patient at this time does not want to make a decision and says will speak to his . Objective - Vital Signs/Intake and Output Vital Signs (last 24 hours): Temp Pulse Resp BP Pulse Ox 97.8 F 71 21 116/47 L 96 03/15/18 16:00 03/16/18 04:00 03/16/18 03:59 03/16/18 04:00 03/16/18 00:00 - Medications Medications: Current Medications Acetylcysteine (Acetylcysteine 20%) 4 ml IH BIDRESP [facility] Last Admin: 03/16/18 07:36 Dose: 4 ml Albuterol/Ipratropium (Duoneb 3 Mg/0.5 Mg (3 Ml) Ud) 3 ml IH Q2H PRN PRN Reason: Shortness of Breath Last Admin: 03/12/18 07:42 Dose: 3 ml Benzonatate (Tessalon Perles) 100 mg PO TID [facility] Last Admin: 03/15/18 17:28 Dose: 100 mg Budesonide (Pulmicort Respules) 0.5 mg IH [id number] [facility] Last Admin: 03/16/18 07:37 Dose: 0.5 mg Ciprofloxacin (Ciloxan 0.3% Oph Soln) 2 drop OU Q6 [facility] Stop: 03/18/18 06:00 Last Admin: 03/16/18 06:31 Dose: 2 drop Doxycycline Hyclate (Doryx) 100 mg PO Q12 [facility]; Protocol Last Admin: 03/15/18 22:17 Dose: 100 mg Duloxetine HCl (Cymbalta) 60 mg PO DAILY [facility] Last Admin: 03/15/18 10:52 Dose: 60 mg Enoxaparin Sodium (Lovenox) 40 mg SC DAILY [facility]; Protocol Last Admin: 03/15/18 10:50 Dose: 40 mg Gabapentin (Neurontin) 300 mg PO TID [facility]; Protocol Last Admin: 03/15/18 17:28 Dose: 300 mg Sodium Chloride (Sodium Chloride 0.9%) 1,000 mls @ 30 mls/hr IV .Q24H [facility] Last Admin: 03/16/18 02:00 Dose: 30 mls/hr Meropenem (Merrem Iv 1 Gm Premix) 1 gm in 50 mls @ 12.5 mls/hr IVPB Q12 [facility]; Protocol Stop: 03/21/18 10:01 Last Admin: 03/15/18 22:18 Dose: 12.5 mls/hr Levalbuterol HCl (Xopenex) 0.63 mg IH TIDRESP [facility] Last Admin: 03/16/18 07:37 Dose: 0.63 mg Methylprednisolone (Solu-Medrol) 40 mg IVP Q12 [facility] Last Admin: 03/15/18 22:17 Dose: 40 mg Metoprolol Succinate (Toprol Xl) 100 mg PO DAILY [facility] Last Admin: 03/15/18 10:52 Dose: 100 mg Oxycodone HCl (Oxycontin Extended Release Tab) 20 mg PO Q12 [facility] Last Admin: 03/15/18 22:17 Dose: 20 mg Pantoprazole Sodium (Protonix Ec Tab) 40 mg PO ACB [facility] Last Admin: 03/15/18 08:00 Dose: 40 mg - Labs Labs: 03/16/18 07:20 03/15/18 06:30 PT 16.2 SECONDS (9.4-12.5) H 03/11/18 20:55 INR 1.41 03/11/18 20:55 APTT 28.5 Seconds (25.1-36.5) 03/11/18 20:55 - Constitutional Appears: Cachectic - Eye Exam Eye Exam: Normal appearance - ENT Exam ENT Exam: Mucous Membranes Moist, Normal Exam - Respiratory Exam Respiratory Exam: Decreased Breath Sounds - Cardiovascular Exam Cardiovascular Exam: REGULAR RHYTHM - GI/Abdominal Exam GI & Abdominal Exam: Soft, Normal Bowel Sounds. 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 Patient was admitted to ICU for management and treatment of hypoxemic respiratory failure. Patient has recurrent pleural effusion, likely malignant. Plan: Right pleural effusion -initial CXR showed diffuse R sided white out w/ tracheal deviation towards the left ; Cardiac plueral effusion vs Malignant pleural effusion vs atelcatsis vs pneumonia -chest xray today showing R side white out -CT Chest showed complete atelectasis of the right lung with endobronchial obstruction, large right pleural effusion -s/p thoracentesis on 03/13/18 with 1.9L fluid removed -pleural fluid cytology pending -sputum culture pending, urine culture negative, blood culture negative for 48 hours -continue doxy, merrem day 5 Unknown source of infection -solumedrol 40 q12, pulmicort, mucomyst, xopenex -afebrile, WBC downtrending, procalc downtrending -echo shows EF 53%, RVSP 61 -trops are indeterminate -IR, pulm, cardio consult Hx of stage 4 non small cell lung cancer -mets to the liver, lungs, bone -currently on immunotherapy -candidate for laser ablation of the right main stem with stent and tumor debulking -patient/family to make decision in regards to degree of aggressive treatment. May need transfer to receive treatment -heme/onc on consult Tachycardia-resolved -continue home toprol XL 100mg Conjunctivitis -L eye > R eye -improving -topical ciprofloxacin SAUD - resolved -Cr .9 -NS@ 30cc PPX/Diet -lovenox protonix -HHD <Fred Sidhu - Last Filed: 03/16/18 18:39> Objective - Vital Signs/Intake and Output Vital Signs (last 24 hours): Temp Pulse Resp BP Pulse Ox 97.8 F 90 21 118/66 96 03/15/18 16:00 03/16/18 09:46 03/16/18 03:59 03/16/18 09:46 03/16/18 00:00 Intake and Output: 03/16/18 03/16/18 06:59 18:59 Intake Total 1780 Output Total 850 Balance 930 - Medications Medications: Current Medications Acetylcysteine (Acetylcysteine 20%) 4 ml IH BIDRESP [facility] Last Admin: 03/16/18 07:36 Dose: 4 ml Albuterol/Ipratropium (Duoneb 3 Mg/0.5 Mg (3 Ml) Ud) 3 ml IH Q2H PRN PRN Reason: Shortness of Breath Last Admin: 03/12/18 07:42 Dose: 3 ml Benzonatate (Tessalon Perles) 100 mg PO TID [facility] Last Admin: 03/16/18 18:10 Dose: 100 mg Budesonide (Pulmicort Respules) 0.5 mg IH [id number] [facility] Last Admin: 03/16/18 07:37 Dose: 0.5 mg Ciprofloxacin (Ciloxan 0.3% Ophth Soln) 2 drop OU Q6 [facility] Stop: 03/18/18 06:00 Last Admin: 03/16/18 18:11 Dose: 2 drop Doxycycline Hyclate (Doryx) 100 mg PO Q12 [facility]; Protocol Last Admin: 03/16/18 09:44 Dose: 100 mg Duloxetine HCl (Cymbalta) 60 mg PO DAILY [facility] Last Admin: 03/16/18 09:43 Dose: 60 mg Enoxaparin Sodium (Lovenox) 40 mg SC DAILY [facility]; Protocol Last Admin: 03/16/18 09:44 Dose: 40 mg Gabapentin (Neurontin) 300 mg PO TID [facility]; Protocol Last Admin: 03/16/18 18:10 Dose: 300 mg Sodium Chloride (Sodium Chloride 0.9%) 1,000 mls @ 30 mls/hr IV .Q24H [facility] Last Admin: 03/16/18 02:00 Dose: 30 mls/hr Meropenem (Merrem Iv 1 Gm Premix) 1 gm in 50 mls @ 12.5 mls/hr IVPB Q12 [facility]; Protocol Stop: 03/21/18 10:01 Last Admin: 03/16/18 09:44 Dose: 12.5 mls/hr Levalbuterol HCl (Xopenex) 0.63 mg IH TIDRESP [facility] Last Admin: 03/16/18 13:11 Dose: 0.63 mg Methylprednisolone (Solu-Medrol) 20 mg IVP Q12 [facility] Metoprolol Succinate (Toprol Xl) 100 mg PO DAILY [facility] Last Admin: 03/16/18 09:46 Dose: 100 mg Oxycodone HCl (Oxycontin Extended Release Tab) 20 mg PO Q12 [facility] Last Admin: 03/16/18 09:45 Dose: 20 mg Pantoprazole Sodium (Protonix Ec Tab) 40 mg PO ACB [facility] Last Admin: 03/16/18 08:29 Dose: 40 mg - Labs Labs: 03/16/18 07:20 03/16/18 07:20 PT 16.2 SECONDS (9.4-12.5) H 03/11/18 20:55 INR 1.41 03/11/18 20:55 APTT 28.5 Seconds (25.1-36.5) 03/11/18 20:55 Attending/Attestation - Attestation I have personally seen and examined this patient.: Yes I have fully participated in the care of the patient.: Yes I have reviewed all pertinent clinical information, including history, physical exam and plan: Yes Notes (Text): 03/16/18 18:30 Medical record note made by the resident after discussion with my direction and input after the patient was personally seen and examined by me. I have reviewed the chart and agree that the record accurately reflects by personal performance of the history, physical exam, data review, and medical decision-making, in the course for the patient. I have also personally directed the plan of care. 67M w/ a reported PMH of adenocarcinoma of lune lungs, HTN, EtOH abuse, Anxeity, presented to [facility] ED on 03/11/18 w/ complaints of worsening SOB x2 weeks due to due to recurrent right sided pleural effusion, likely malignant and Possible Pneumonia. Patient had thoracentesis done on 01/11/19 and 1800 ml of fluid was removed. Repeat Chest X ray today showed complete opacification of right side. Patient will need chest tube placement .This was discussed with him yesterday by , he is refusing .I discussed with him again today.The risk was discussed in detail. Patient wants to talk with family member and his doctor before making any decision.Patient is alert,awake and oriented and understand the risk of delaying. Patient is full code at this time. We will get Palliative care consult. Prognosis is guarded. 03/16/18 18:33
[2018-03-16 07:58] LABS: ALB/GLOB RATIO 0.9 (1.1-1.8); ALBUMIN 2.6 g/dL (3.0-4.8); ALT/SGPT 57 U/L (7-56); AST/SGOT 48 U/L (17-59); BLOOD UREA NITROGEN 38 mg/dL (7-21); CALCIUM 8.4 mg/dL (8.4-10.5); GFR NON-AFRICAN AMERICAN > 60
[2018-03-16] MEDS: Pantoprazole 40 mg EC Tab PO SCH (08:29)
[2018-03-16] MEDS: Enoxaparin 40 mg Syringe SC SCH (09:44)
[2018-03-16] MEDS: Meropenem IV 1 gm in NS 1 GM/50 ML BAG IVPB SCH ×2 (09:44→21:04)
[2018-03-16] MEDS: oxyCODONE 20 mg ER Tab (oxyCONTIN) PO SCH ×2 (09:45→21:02)
[2018-03-16] MEDS: Metoprolol Succinate 100 mg XL Tab PO SCH (09:46)
[2018-03-16] MEDS: MethylPREDNISolone 40 mg Vial IVP SCH ×2 (09:46→21:03)
--- NOTE | 2018-03-16 10:23 | RAD ---
Date of service: 03/16/2018 HISTORY: effusion COMPARISON: 03/13/2018 FINDINGS: LUNGS: Left lung is clear PLEURA: There is complete opacification of the right hemithorax CARDIOVASCULAR: Minimal aortic calcification Normal cardiac size. No pulmonary vascular congestion. OSSEOUS STRUCTURES: No significant abnormalities. VISUALIZED UPPER ABDOMEN: Normal. OTHER FINDINGS: None. IMPRESSION: Complete opacification of right hemithorax. No change from prior exam
--- NOTE | 2018-03-16 15:32 | PN ---
DATE: 03/16/2018 SUBJECTIVE: The patient is in bed in no acute distress, nontoxic. PHYSICAL EXAMINATION: VITAL SIGNS: Temperature is 97, blood pressure is 118/60, respiratory rate of 18. HEENT: Unremarkable. NECK: Supple. LUNGS: Have decreased breath sounds. HEART: Normal S1 and S2. ABDOMEN: Soft. LABORATORY DATA: Examination reveals a white count of 13,800, hemoglobin of 10 and platelets of 131. Coagulation is noted. BUN of 38, creatinine of 0.9. Procalcitonin 0.85 yesterday. Urinalysis is noted. Serology is reviewed. Microbiology reveals the blood cultures are negative. Urine cultures are negative. Review of orders reveals the patient is on meropenem, Solu-Medrol, and doxycycline.. ASSESSMENT AND PLAN: A 67-year-old male who is ALLERGIC TO PENICILLIN AND AZITHROMYCIN, status post thoracentesis of the right-side with 1.9 liters removed, now extubated with right-sided healthcare-associated pneumonia and complete opacification of the right side in face of acute kidney injuries, stage IV lung cancer with metastasis to bone and liver in a patient with chronic obstructive lung disease, hypertension, and alcohol abuse. Currently on doxycycline and meropenem day #5, would complete at least 7-10 days' of antibiotics. The patient appears to be improving slowly; however, overall prognosis is poor. Review of orders reveals that antibiotics require renewal, which I will do so and we will follow with you. Edgard Mackey MD
--- NOTE | 2018-03-16 19:09 | PN ---
DATE: 03/16/2018 PULMONARY CRITICAL CARE PROGRESS NOTE REFERRING PHYSICIAN: Dr. Early. SUBJECTIVE: He is lying in the bed, head at 45 degrees. Night was unremarkable. Feels better though. Decreased cough, decreased chest pain. No nausea, no vomiting, no diarrhea, no leg swelling. OBJECTIVE GENERAL: In no acute distress. VITAL SIGNS: Temperature is 98, heart rate 90, respiratory rate is 20, blood pressure 118/66, pulse ox 96% on nasal cannula. HEENT: Moist mucous membranes. Crowded airway. NECK: Supple. No JVD. LUNGS: There are no breaths on the right lung. A few scattered rhonchi on the left lung. HEART: S1 and S2. ABDOMEN: Soft, nontender. No organomegaly. EXTREMITIES: There is no edema. NEUROLOGIC: Awake, alert, follows simple commands. MEDICATIONS: He is on Mucomyst inhaled twice a day, Cipro ophthalmic solution every 6 hours, Cymbalta 60 mg daily, doxycycline 100 mg twice a day, DuoNeb every 2 hours as needed, Lovenox 40 mg daily, meropenem 1 g IV every 12 hours, Neurontin 300 mg three times a day, OxyContin extended release 20 mg every 12 hours, Protonix 40 mg before breakfast, Pulmicort inhaled twice a day, IV fluid normal saline 30 mL per hour, Solu-Medrol 40 mg every 12 hours, benzonatate 100 mg three times a day, Toprol XL 100 mg daily, Xopenex inhaled three times daily. LABORATORY DATA: Shows hemoglobin 10.0, hematocrit 32.8, WBC 13.8, platelet count is 131. Sodium 35, potassium 5.0, chloride 101, bicarbonate 32, BUN 38, creatinine 0.9, glucose 119, calcium is 8.4. AST 48, ALT 57, alkaline phosphatase is 89, albumin is 2.6. Procalcitonin is 0.85. Legionella pneumophila antigen is negative. DIAGNOSTIC DATA: Chest x-ray shows today white-out, right lung. IMPRESSION AND PLAN: History of [id number] lung cancer treated with radiation and chemotherapy, pneumonia, hypertension, history of alcohol abuse, anxiety disorder, history of gastroesophageal reflux disease, white-out right lung. Case discussed with the patient's primary oncologist at [facility] today, Dr. Richey, who did speak on the phone with the patient, recommended chest tube placement/bronchoscopy. I personally had a long discussion with the patient in intensive care unit, opened up his chart electronically, and showed his chest x-ray finding visually. He expressed understanding and willing to get right-sided fluid drained by chest tube, but will discuss with the family first. I spoke to the nursing staff. Continue bronchodilator, keep head at [address] a consult for Dr. Smooth Izquierdo tomorrow for possible chest tube placement. Once the fluid is drained, we will decide the next step to do. Gastric prophylaxis, deep venous thrombosis prophylaxis, bronchodilator. Follow up labs in the morning. Critical care time is more than 35 minutes. Thank you and we will follow with you. Fred Read MD
[2018-03-17] MEDS: Ciprofloxacin 0.3% OPTH SOLN OU SCH ×4 (00:05→17:29)
[2018-03-17] MEDS: Sodium Chloride 0.9% 1,000 ML IV SCH (01:03)
[2018-03-17 06:37] LABS: BASO # 0.01 K/mm3 (0.0-2.0); BASO % 0.1 % (0.0-3.0); GRAN # 13.15 (1.4-6.5); GRAN % 88.4 % (50.0-68.0); HEMOGLOBIN 10.6 g/dL (14.0-18.0); LYMPH # 0.9 (1.2-3.4); LYMPH % 6.3 % (22.0-35.0); MEAN CELL VOLUME 87.2 fl (80.0-105.0); MEAN CORPUSCULAR HEMOGLOBIN 26.6 pg (25.0-35.0); MEAN CORPUSCULAR HGB CONC 30.5 g/dl (31.0-37.0); MEAN PLATELET VOLUME 10.4 fl (7.0-11.0); MONO # 0.8 (0.1-0.6); MONO % 5.2 % (1.0-6.0); RBC 3.98 10^6/uL (3.5-6.1); RED CELL DISTRIBUTION WIDTH 16.4 % (11.5-14.5); WHITE BLOOD COUNT 14.9 10^3/uL (4.5-11.0)
[2018-03-17] MEDS: Acetylcysteine 20% Inhal Soln (4ml) IH SCH ×2 (07:08→21:10)
[2018-03-17] MEDS: Budesonide 0.5 mg/2 ml Inhal Susp UD IH SCH ×2 (07:08→21:11)
[2018-03-17] MEDS: Levalbuterol 0.63 MG/3 ML Inhal Soln UD IH SCH ×3 (07:08→21:10)
[2018-03-17 07:46] LABS: ALB/GLOB RATIO 0.9 (1.1-1.8); ALBUMIN 2.6 g/dL (3.0-4.8); ALT/SGPT 118 U/L (7-56); AST/SGOT 86 U/L (17-59); BLOOD UREA NITROGEN 38 mg/dL (7-21); CALCIUM 8.4 mg/dL (8.4-10.5); GFR NON-AFRICAN AMERICAN > 60
[2018-03-17] MEDS: Pantoprazole 40 mg EC Tab PO SCH (08:22)
[2018-03-17] MEDS: oxyCODONE 20 mg ER Tab (oxyCONTIN) PO SCH ×2 (09:17→21:07)
[2018-03-17] MEDS: MethylPREDNISolone 40 mg Vial IVP SCH ×2 (09:18→21:08)
[2018-03-17] MEDS: Metoprolol Succinate 100 mg XL Tab PO SCH (09:19)
[2018-03-17] MEDS: Enoxaparin 40 mg Syringe SC SCH (09:19)
[2018-03-17] MEDS: guaiFENesin 100 mg/5 ml Syrup UD PO PRN ×2 (09:20→21:08)
[2018-03-17] MEDS: Meropenem IV 1 gm in NS 1 GM/50 ML BAG IVPB SCH ×2 (09:20→21:08)
[2018-03-17] MEDS ORDERED: Albuterol 0.083% Inhal Sol (2.5 mg/3 mL) UD INH STA (09:23)
--- NOTE | 2018-03-17 09:46 | PN ---
DATE: 03/16/2018 ONCOLOGY PROGRESS NOTE LOCATION: The patient is in ICU 128, bed 6. The patient is currently in the critical care unit. SUBJECTIVE: The patient is lying in bed, head at 45 degrees. The patient says that he is feeling better with decreased cough, decreased chest pain, and decreased leg pain. No nausea, vomiting, or diarrhea. Family is by the bedside; both his daughter and his are there. PHYSICAL EXAMINATION: GENERAL: The patient is examined in bed. VITAL SIGNS: Stable. T-max is 98, heart rate is 90, respiration is 20, blood pressure is 118/66, pulse ox is 96% on nasal cannula. HEENT: Head is normocephalic, atraumatic. Conjunctivae are pale. Examination of the oropharynx reveals poor dentition. No oropharyngeal lesions are noted. NECK: Supple. There is no adenopathy. No jugular venous distention noted. LUNGS: Reveal no breath sounds on the right lung; few scattered rhonchi on the left lung. HEART: Reveals S1 and S2 to be normal. No gallop or murmur is heard. ABDOMEN: Soft, nontender. No rebound, rigidity, or guarding is noted. EXTREMITIES: Reveal no cyanosis, clubbing, or edema. NEUROLOGIC: Reveals higher functions to be normal. No focal deficits are noted. GENITOURINARY/RECTAL: Deferred. MEDICATIONS: Reviewed. The patient is on Mucomyst inhaled twice a day, Cipro ophthalmic solution every 6 hours, Cymbalta 60 mg daily, doxycycline 100 mg twice a day, DuoNeb every 2 hours as needed, Lovenox 40 mg subcutaneous daily, meropenem 1 g IV every 12 hours, Neurontin 300 mg 3 times a day, OxyContin 20 mg every 12 hours, Protonix 40 mg daily, Pulmicort inhaled twice a day. He is on IV normal saline 30 mL an hour, Solu-Medrol 40 mg every 12 hours. He is on benzonatate 100 mg 3 times a day, Toprol-XL 100 mg daily, Xopenex inhaled 3 times daily. LABORATORY DATA: Reveals a hemoglobin of 10, hematocrit of 32.8, white count of 13.8, platelet count of 131. Sodium is 135, K is 5, chloride is 101, bicarbonate is 32, BUN is 38, creatinine 0.9, glucose 119, calcium 8.4. AST is 48, ALT is 57, alk phos is 89, albumin is 2.6, procalcitonin is 0.85. Legionella antigen is negative. Chest x-ray today shows white-out of the right lung. ASSESSMENT, NOTES, AND PLAN: The patient has metastatic non-small cell carcinoma, treated with radiation and chemotherapy; pneumonia; hypertension; acute alcoholism; anxiety disorder; history of gastroesophageal reflux disease; white-out of the right lung, secondary to reaccumulation of fluid. I spoke to the patient's family regarding the placement of a chest tube for drainage of the fluid, maybe a PleurX catheter would be better option than placement of a chest tube. We will check with Dr. Read regarding the same. I spoke to the nursing staff as well. The patient will need placement of this, and we will speak to Dr. Smooth Izquierdo on that as well after speaking with Dr. Read. Continue gastric and deep venous thrombosis prophylaxis with sequential compression device stockings. Followup labs in the morning has been requested. Time spent with the patient including the patient's notes that we got from Dr. Richey were discussed with both the and the daughter in greater length. I have reviewed all the treatments that he has had. tells me she has been also trying to get the PET/CT for me from the last visit that he had at the [facility]. In the meantime, I did go over all the medications that were surmised in his progress note from Dr. Richey's office, and it looks like the options left for the patient if this is locoregional disease only in and around the lung including the fluid, which is chylous in nature. We will get the fluid analysis tomorrow. The patient's options would be to try systemic therapy with Keytruda plus chemotherapy that he has not had, such as gemcitabine or etoposide or [place], which are not listed in the regimen that he has had. Other options looks as well. One of the other recommendations would be to do a repeat biopsy as the tumors can evolve, and sending the tumor for next generation sequencing will be the most appropriate way to approach the situation. I will talk to Laura again once I have further details about the plan for tomorrow morning. I told her I will reach out to her after I review the PET/CT scan as well. Please make a note, this is a complex patient with multiple comorbid medical issues. Time spent with the patient in talking to the family members took me more than 80 minutes. Festus Vaughn MD
--- NOTE | 2018-03-17 09:55 | PN ---
DATE: 03/16/2018 ONCOLOGY CRITICAL CARE PROGRESS NOTE LOCATION: The patient is in ICU, bed 6. SUBJECTIVE: The patient is seen lying in bed at 45 degrees, on supplemental oxygen. The patient is feeling better, was able to have a long conversation with me today. Had cough and shortness of breath has improved. No hemoptysis. No hematemesis. No hematuria. No diarrhea, leg pain, or leg swelling. He feels that the SCD stockings that he has helps him with his leg cramps that he constantly appears to suffer and he finds that he has required less narcotics with the SCD stockings now than he was on before at home. Breathing is easier. Appetite has likely improved in general. The patient feels that he has gotten better since the pleural tap. PHYSICAL EXAMINATION GENERAL: The patient is in no acute distress. VITAL SIGNS: Stable. T-max is 98.4, heart rate is 77, respirations 20, blood pressure is 105/55, pulse ox is 98% on nasal cannula. HEENT: Head is normocephalic, atraumatic. Conjunctivae pale. Examination of the oropharynx reveals poor dentition. No oropharyngeal lesions are noted. NECK: Supple. There is no adenopathy. No jugular venous distention noted. LUNGS: Reveals decreased breath sounds on the right side with a few scattered rhonchi in the left lung. HEART: Reveals PMI to be in the fifth intercostal space inside the midclavicular line. S1 and S2 are normal. No gallop or murmur is heard. ABDOMEN: Soft, nontender. There is no rebound, rigidity or guarding noted. EXTREMITIES: There is no cyanosis, clubbing, or edema. NEUROLOGIC: Examination reveals higher functions to be normal. No focal deficits are noted. MEDICATIONS: Reviewed. The patient is on Mucomyst inhaled twice a day. He is on Cipro ophthalmic solution every 6 hours, Cymbalta 60 mg daily, doxycycline 100 mg twice daily, DuoNeb every 2 hours, Lovenox 40 mg subcutaneously daily, meropenem 1 g IV every 12 hours, gabapentin 300 mg three times a day, OxyContin extended release 20 mg every 12 hours, Protonix 40 mg before breakfast, Pulmicort inhaled twice a day, IV fluid normal saline 30 mL an hour, Solu-Medrol 40 mg IV every 12 hours, Tessalon Perles 100 mg 3 times a day, Toprol-XL 100 mg daily, Xopenex inhaled every 12 hours. LABORATORY DATA: Reveals hemoglobin of 10.4; hematocrit of 34.9; white count is 19,000; platelet count is 194. Sodium is 137, potassium is 4.8, chloride 102, bicarbonate 30, BUN is 38, creatinine 1.1, glucose 125, calcium 8.5. ALT is 41, AST is 32, alkaline phosphatase is 92, albumin is 2.7, procalcitonin 0.74. Blood cultures are negative. Urine cultures are unremarkable. ASSESSMENT NOTES AND PLAN: I had a detailed discussion with the patient and spoke to his daughter and at great length. Also, got some of the information from [facility] where Dr. Richey has been treating him who is a medical oncologist and basically the patient had locally advanced [id number] lung carcinoma in the right lower lobe of the lung, treated with aggressive chemo and radiation consisting of carboplatin and Taxol based regimen along with local radiation therapy. The patient did well. It was diagnosed in 2013. He has had a series of recurrence since then. Between 2016 and 2018, he had recurrence in the liver, which was treated with therapy and then has had a series of sequencing chemotherapy, last chemotherapy being Navelbine. He has had Taxol, Taxotere, Abraxane, carboplatin, and Navelbine. The patient has not had gemcitabine from the reports at least somewhat I had. The patient's tumor is not showing any class c driver mutations. He was not a candidate for either epidermal growth factor receptor mutation or for ALK gene or LEANDRO gene mutations as well. The patient's original tumor did not express PDR1, but he has been started on Keytruda recently with some stabilization of disease as per the last scans. At this point in time, it appears that he has very minimal effusion on the right side of the lung on his last chest x-ray, but over the last maybe three weeks or so, the effusion has gotten worse, which probably what prompted him to land in the hospital. 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 The issue here is the patient may not be a candidate for additional radiation. We will have to check with Dr. Brooke if there is a role for tangential radiation to the chest wall, have not gotten radiation to the right mainstem and right hilar region. Options to the patient explained to him at this point would be to see whether the patient's volume of disease is still just local regional for doing a PET-CT scan once he stabilizes with an appropriate option. The other thing would be to see the patient is a candidate for dual immunotherapy with Keytruda and ipilimumab and the third option would be to see if the patient is a candidate with Keytruda and another systemic chemotherapy that the patient has not been exposed to. The patient has adenocarcinoma of the lung. So, we do have several options or the systemic chemotherapy. Routine post-exam instructions have been given to the patient. We left the patient recover at this point in time before making further decisions as to further management. The patient is very reluctant for any aggressive procedures such as bronchoscopy, laser therapy to open up the passage within the endobronchial area where we see some obstruction or anything to do surgically as far as the effusion is concerned. I did tell the patient if the effusion should come back, the other option would be to place a PleurX catheter while we embark on systemic therapy. We will try to get input from his family as well as to what they want to do before we proceed accordingly. Festus Vaughn MD
--- NOTE | 2018-03-17 09:57 | PN ---
DATE: 03/14/2018 REFERRING PHYSICIAN: Jay Elizabeth MD SUBJECTIVE: The patient is sitting up at bedside with physical therapy in the room, reports feeling little bit better today, had significant coughing at nighttime, shortness of breath with exertion has improved. The patient had pleural tap with more than 1.9 L of fluid removed, most of which was chylous. Pathology of the pleural is still pending. Denies any headache. Has been having mild epigastric pain for which he has been taking OxyContin. No chest pain or diarrhea, no leg pain or leg swelling noted. PHYSICAL EXAMINATION GENERAL: The patient is in no acute distress. VITAL SIGNS: Stable. Blood pressure 120/62, pulse is 89, O2 sat is 96%, T-max is 97.8. HEENT: Head is normocephalic and atraumatic. Conjunctivae clear. Sclerae are anicteric. Pupils are equal and reactive to light and accommodation. Examination of the oropharynx reveals poor dentition. No oropharyngeal lesions are noted. NECK: Supple. There is no adenopathy. LUNGS: Crackles at the left lower base with diminished breath sound from the right side posteriorly. CARDIOVASCULAR: PMI in the fifth intercostal space, inside the midclavicular line. S1 and S2 normal. No gallop or murmur is heard. ABDOMEN: Soft, nontender. No distention or organomegaly noted. No rebound, rigidity, or guarding is noted. EXTREMITIES: 1+ bilateral lower extremity edema. NEUROLOGIC: The patient to be awake, alert , and oriented and follows the command. The patient still has intermittent epigastric pain for which he gets narcotics. LABORATORY DATA: White count of 9.3, RBC of 3.67, hemoglobin 9.7, hematocrit 31.6, and platelet count of 124,000. Sodium is 138, K is 4.5, chloride is 104, CO2 of 32, anion gap 7, BUN is 31, creatinine 1, GFR is greater than 60, random glucose is 148, calcium is 7.9, total bilirubin is 1, AST is 56, ALT is 47, alkaline phosphatase is 89, total protein is 5.1, with an albumin of 2.4. Globulin is 2.7, albumin-globulin ratio 0.9, procalcitonin is 0.74. Chest x-ray shows no new adverse findings following recovery of 1.9 L of fluid from the right pleural space, persistent opacification on right hemithorax, most likely secondary to residual compressive atelectasis. MEDICATIONS: Reviewed, consist of Mucomyst 4 mL inhalation twice a day, DuoNeb 10 mL inhalation every 12 hours, Pulmicort 0.5 mg every 12 hours, ciprofloxacin eyedrops every 6 hours, doxycycline 100 mg every 12 hours, Cymbalta 60 mg daily, Lovenox 40 mg subcutaneously daily, gabapentin 300 mg 3 times a day, Xopenex 0.63 mg inhalation 3 times a day, meropenem 1 g every 12 hours, Solu-Medrol 40 mg every 12 hours, metoprolol succinate 100 mg daily, oxycodone 20 mg every 12 hours, Protonix 40 mg IV push daily, sodium chloride 1000 mL bag running at 30 mL an hour. 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 The patient has history of hypertension, ethanol abuse, anxiety, depression, which is all compounding the situation. We will continue with current gastroesophageal reflux and deep venous thrombosis prophylaxis and the current bronchodilator the patient is on. The patient's current antibiotic is unchanged. He is on doxycycline 100 every 12 hours along with Bactrim that he is getting also every 12 hours. I have spoken to the patient's daughter, the patient's also yesterday, and they are going to still think about do not resuscitate/do not intubate, trying to go into rehab and continuing with the treatment with Keytruda. I have spoken to the separating machine operator telling about the patient's plan from hereon. The patient's case was presented by Dr. Read to Dr. Early at [facility] who recommended placing chest tube due to reaccumulation of fluid after thoracentesis. Requested Dr. Izquierdo for chest tube placement versus PleurX catheter placement. Await family's decision to getting treatment and that the patient aggressive to continue what we are doing. We have even raised the issue with the patient regarding the plan for endobronchial intubation and placement of the stent, and I will check with Dr. Read if feasible. The patient had a lot of radiation, so he may not be a candidate for . Time spent with the patient greater than 45 minutes. We will discuss with the patient's family once I get the reports from the oncologist at [facility] which is going to be faxed to us today, and then we will discuss with the and the daughter regarding further management. It appears that they are reluctant to be very aggressive with . They want him to be treated in a palliative way as best as is feasible. This is a complex patient with multiple comorbid and medical issues. Festus Vaughn MD
--- NOTE | 2018-03-17 10:06 | CP.PCM.PN ---
<Maxim Barfield - Last Filed: 03/17/18 13:48> Subjective - Date & Time of Evaluation Date of Evaluation: 03/17/18 Time of Evaluation: 09:00 - Subjective Subjective: Patient seen and examined at bedside. Patient with no acute complaints. No events overnight. Denies chest pain, shortness of breath, nausea, vomiting, diarrhea, fever, chills. Objective - Vital Signs/Intake and Output Vital Signs (last 24 hours): Temp Pulse Resp BP Pulse Ox 98.3 F 86 23 117/53 L 95 03/17/18 04:00 03/17/18 09:19 03/17/18 02:00 03/17/18 09:19 03/17/18 02:00 Intake and Output: 03/17/18 03/17/18 06:59 18:59 Intake Total 300 Output Total 250 Balance 50 - Medications Medications: Current Medications Acetylcysteine (Acetylcysteine 20%) 4 ml IH BIDRESP [facility] Last Admin: 03/17/18 07:08 Dose: 4 ml Albuterol/Ipratropium (Duoneb 3 Mg/0.5 Mg (3 Ml) Ud) 3 ml IH Q2H PRN PRN Reason: Shortness of Breath Last Admin: 03/12/18 07:42 Dose: 3 ml Benzonatate (Tessalon Perles) 100 mg PO TID [facility] Last Admin: 03/17/18 09:19 Dose: 100 mg Budesonide (Pulmicort Respules) 0.5 mg IH [id number] [facility] Last Admin: 03/17/18 07:08 Dose: 0.5 mg Ciprofloxacin (Ciloxan 0.3% [facility]) 2 drop OU Q6 [facility] Stop: 03/18/18 06:00 Last Admin: 03/17/18 06:50 Dose: 2 drop Doxycycline Hyclate (Doryx) 100 mg PO Q12 [facility]; Protocol Last Admin: 03/17/18 09:20 Dose: 100 mg Duloxetine HCl (Cymbalta) 60 mg PO DAILY [facility] Last Admin: 03/17/18 09:19 Dose: 60 mg Enoxaparin Sodium (Lovenox) 40 mg SC DAILY [facility]; Protocol Last Admin: 03/17/18 09:19 Dose: 40 mg Gabapentin (Neurontin) 300 mg PO TID [facility]; Protocol Last Admin: 03/17/18 09:19 Dose: 300 mg Guaifenesin (Robitussin) 100 mg PO Q4H PRN PRN Reason: Cough Last Admin: 03/17/18 09:20 Dose: 100 mg Sodium Chloride (Sodium Chloride 0.9%) 1,000 mls @ 30 mls/hr IV .Q24H [facility] Last Admin: 03/17/18 01:03 Dose: 30 mls/hr Meropenem (Merrem Iv 1 Gm Premix) 1 gm in 50 mls @ 12.5 mls/hr IVPB Q12 [facility]; Protocol Stop: 03/21/18 10:01 Last Admin: 03/17/18 09:20 Dose: 12.5 mls/hr Levalbuterol HCl (Xopenex) 0.63 mg IH TIDRESP [facility] Last Admin: 03/17/18 07:08 Dose: 0.63 mg Methylprednisolone (Solu-Medrol) 20 mg IVP Q12 [facility] Last Admin: 03/17/18 09:18 Dose: 20 mg Metoprolol Succinate (Toprol Xl) 100 mg PO DAILY [facility] Last Admin: 03/17/18 09:19 Dose: 100 mg Oxycodone HCl (Oxycontin Extended Release Tab) 20 mg PO Q12 [facility] Last Admin: 03/17/18 09:17 Dose: 20 mg Pantoprazole Sodium (Protonix Ec Tab) 40 mg PO ACB [facility] Last Admin: 03/17/18 08:22 Dose: 40 mg - Labs Labs: 03/17/18 05:25 03/17/18 05:25 PT 16.2 SECONDS (9.4-12.5) H 03/11/18 20:55 INR 1.41 03/11/18 20:55 APTT 28.5 Seconds (25.1-36.5) 03/11/18 20:55 - Constitutional Appears: Non-toxic, No Acute Distress - Head Exam Head Exam: ATRAUMATIC, NORMAL INSPECTION, NORMOCEPHALIC - Respiratory Exam Respiratory Exam: Decreased Breath Sounds (Right side), NORMAL BREATHING PATTERN. absent: Rales, Rhonchi, Wheezes - Cardiovascular Exam Cardiovascular Exam: RRR, +S1, +S2 - GI/Abdominal Exam GI & Abdominal Exam: Soft, Normal Bowel Sounds. absent: Tenderness - Extremities Exam Extremities Exam: Normal Inspection. absent: Pedal Edema - Neurological Exam Neurological Exam: Alert, Awake, Oriented x3 - Psychiatric Exam Psychiatric exam: Normal Affect, Normal Mood - Skin Skin Exam: Dry, Intact, Warm Assessment and Plan - Assessment and Plan (Free Text) Plan: Right sided hospital acquired pneumonia Hyperkalemia S/p right-sided thoracentesis Hx of stage IV lung cancer with mets to bone and liver Hx of COPD Hx of HTN Hx of Tobacco use Hx of Alcohol use Plan Continue Doxycycline and Merrem for 7-10 days Blood and urine cultures negative Repeat procalcitonin still elevated, will repeat tomorrow in AM Patient undecided on chest tube placement Continue current medical management [place], PGY-3 <Dominic Jay S - Last Filed: 03/17/18 17:09> Objective - Vital Signs/Intake and Output Vital Signs (last 24 hours): Temp Pulse Resp BP Pulse Ox 98.3 F 77 19 121/70 93 L 03/17/18 04:00 03/17/18 14:00 03/17/18 11:59 03/17/18 12:00 03/17/18 06:00 Intake and Output: 03/17/18 03/17/18 06:59 18:59 Intake Total 300 Output Total 250 Balance 50 - Medications Medications: Current Medications Acetylcysteine (Acetylcysteine 20%) 4 ml IH BIDRESP [facility] Last Admin: 03/17/18 07:08 Dose: 4 ml Albuterol/Ipratropium (Duoneb 3 Mg/0.5 Mg (3 Ml) Ud) 3 ml IH Q2H PRN PRN Reason: Shortness of Breath Last Admin: 03/12/18 07:42 Dose: 3 ml Alprazolam (Xanax) 0.125 mg PO BID PRN; Protocol PRN Reason: Anxiety Stop: 03/24/18 18:01 Benzonatate (Tessalon Perles) 100 mg PO TID [facility] Last Admin: 03/17/18 13:11 Dose: 100 mg Budesonide (Pulmicort Respules) 0.5 mg IH [id number] [facility] Last Admin: 03/17/18 07:08 Dose: 0.5 mg Ciprofloxacin (Ciloxan 0.3% [facility]) 2 drop OU Q6 [facility] Stop: 03/18/18 06:00 Last Admin: 03/17/18 13:11 Dose: 2 drop Doxycycline Hyclate (Doryx) 100 mg PO Q12 [facility]; Protocol Last Admin: 03/17/18 09:20 Dose: 100 mg Duloxetine HCl (Cymbalta) 60 mg PO DAILY [facility] Last Admin: 03/17/18 09:19 Dose: 60 mg Enoxaparin Sodium (Lovenox) 40 mg SC DAILY [facility]; Protocol Last Admin: 03/17/18 09:19 Dose: 40 mg Gabapentin (Neurontin) 300 mg PO TID [facility]; Protocol Last Admin: 03/17/18 13:11 Dose: 300 mg Guaifenesin (Robitussin) 100 mg PO Q4H PRN PRN Reason: Cough Last Admin: 03/17/18 09:20 Dose: 100 mg Sodium Chloride (Sodium Chloride 0.9%) 1,000 mls @ 30 mls/hr IV .Q24H [facility] Last Admin: 03/17/18 01:03 Dose: 30 mls/hr Meropenem (Merrem Iv 1 Gm Premix) 1 gm in 50 mls @ 12.5 mls/hr IVPB Q12 [facility]; Protocol Stop: 03/21/18 10:01 Last Admin: 03/17/18 09:20 Dose: 12.5 mls/hr Levalbuterol HCl (Xopenex) 0.63 mg IH TIDRESP [facility] Last Admin: 03/17/18 14:06 Dose: Not Given Methylprednisolone (Solu-Medrol) 20 mg IVP Q12 [facility] Last Admin: 03/17/18 09:18 Dose: 20 mg Metoprolol Succinate (Toprol Xl) 100 mg PO DAILY [facility] Last Admin: 03/17/18 09:19 Dose: 100 mg Oxycodone HCl (Oxycontin Extended Release Tab) 20 mg PO Q12 [facility] Last Admin: 03/17/18 09:17 Dose: 20 mg Pantoprazole Sodium (Protonix Ec Tab) 40 mg PO ACB [facility] Last Admin: 03/17/18 08:22 Dose: 40 mg - Labs Labs: 03/17/18 05:25 03/17/18 10:50 PT 16.2 SECONDS (9.4-12.5) H 03/11/18 20:55 INR 1.41 03/11/18 20:55 APTT 28.5 Seconds (25.1-36.5) 03/11/18 20:55 Assessment and Plan - Assessment and Plan (Free Text) Plan: Infectious diseases Attending Physician Attestation Patient seen and examined, discussed with medical record coder. I have reviewed the patient's history of present illness, past medical, social, personal and family histories, pertinent physical exam findings, course so far in this hospital admission, pertinent laboratory and imaging results. I agree with the above findings, assessment and plan. In addition, continue Doxycycline and Merrem day 6 for patient with probsble right sided HAP. Continue to monitor clinically.
--- NOTE | 2018-03-17 13:33 | CARD ---
APPROVED REPORT Date of service: 03/17/2018 EKG Measurement Heart [id number] <Conclusion> Sinus rhythm with premature atrial complexes Nonspecific ST abnormality Abnormal ECG
--- NOTE | 2018-03-17 13:52 | CP.PCM.PN ---
<Neris Irwin - Last Filed: 03/17/18 13:49> Subjective - Date & Time of Evaluation Date of Evaluation: 03/17/18 Time of Evaluation: 09:15 - Subjective Subjective: Neris Irwin Y1 Hospital Progress Note Patient seen and examined at bedside this morning. No acute events reported overnight. Plan for thoracentesis today. Offers no complaints at this time. Awaiting patient/family decision for chest tube. Objective - Vital Signs/Intake and Output Vital Signs (last 24 hours): Temp Pulse Resp BP Pulse Ox 98.3 F 71 19 121/70 93 L 03/17/18 04:00 03/17/18 11:59 03/17/18 11:59 03/17/18 12:00 03/17/18 06:00 Intake and Output: 03/17/18 03/17/18 06:59 18:59 Intake Total 300 Output Total 250 Balance 50 - Medications Medications: Current Medications Acetylcysteine (Acetylcysteine 20%) 4 ml IH BIDRESP [facility] Last Admin: 03/17/18 07:08 Dose: 4 ml Albuterol/Ipratropium (Duoneb 3 Mg/0.5 Mg (3 Ml) Ud) 3 ml IH Q2H PRN PRN Reason: Shortness of Breath Last Admin: 03/12/18 07:42 Dose: 3 ml Benzonatate (Tessalon Perles) 100 mg PO TID [facility] Last Admin: 03/17/18 13:11 Dose: 100 mg Budesonide (Pulmicort Respules) 0.5 mg IH [id number] [facility] Last Admin: 03/17/18 07:08 Dose: 0.5 mg Ciprofloxacin (Ciloxan 0.3% [facility]) 2 drop OU Q6 [facility] Stop: 03/18/18 06:00 Last Admin: 03/17/18 13:11 Dose: 2 drop Doxycycline Hyclate (Doryx) 100 mg PO Q12 [facility]; Protocol Last Admin: 03/17/18 09:20 Dose: 100 mg Duloxetine HCl (Cymbalta) 60 mg PO DAILY [facility] Last Admin: 03/17/18 09:19 Dose: 60 mg Enoxaparin Sodium (Lovenox) 40 mg SC DAILY [facility]; Protocol Last Admin: 03/17/18 09:19 Dose: 40 mg Gabapentin (Neurontin) 300 mg PO TID [facility]; Protocol Last Admin: 03/17/18 13:11 Dose: 300 mg Guaifenesin (Robitussin) 100 mg PO Q4H PRN PRN Reason: Cough Last Admin: 03/17/18 09:20 Dose: 100 mg Sodium Chloride (Sodium Chloride 0.9%) 1,000 mls @ 30 mls/hr IV .Q24H [facility] Last Admin: 03/17/18 01:03 Dose: 30 mls/hr Meropenem (Merrem Iv 1 Gm Premix) 1 gm in 50 mls @ 12.5 mls/hr IVPB Q12 [facility]; Protocol Stop: 03/21/18 10:01 Last Admin: 03/17/18 09:20 Dose: 12.5 mls/hr Levalbuterol HCl (Xopenex) 0.63 mg IH TIDRESP [facility] Last Admin: 03/17/18 07:08 Dose: 0.63 mg Methylprednisolone (Solu-Medrol) 20 mg IVP Q12 [facility] Last Admin: 03/17/18 09:18 Dose: 20 mg Metoprolol Succinate (Toprol Xl) 100 mg PO DAILY [facility] Last Admin: 03/17/18 09:19 Dose: 100 mg Oxycodone HCl (Oxycontin Extended Release Tab) 20 mg PO Q12 [facility] Last Admin: 03/17/18 09:17 Dose: 20 mg Pantoprazole Sodium (Protonix Ec Tab) 40 mg PO ACB [facility] Last Admin: 03/17/18 08:22 Dose: 40 mg - Labs Labs: 03/17/18 05:25 03/17/18 10:50 PT 16.2 SECONDS (9.4-12.5) H 03/11/18 20:55 INR 1.41 03/11/18 20:55 APTT 28.5 Seconds (25.1-36.5) 03/11/18 20:55 - Additional Findings Additional findings: - Constitutional Appears: Non-toxic, Cachectic - Head Exam Head Exam: ATRAUMATIC, NORMOCEPHALIC - Eye Exam Eye Exam: EOMI, Normal appearance - ENT Exam ENT Exam: Mucous Membranes Dry - Respiratory Exam Respiratory Exam: Decreased Breath Sounds (right lung field), Rales (left lung) - Cardiovascular Exam Cardiovascular Exam: Tachycardia, +S1, +S2 - GI/Abdominal Exam GI & Abdominal Exam: Soft, Normal Bowel Sounds - Extremities Exam Extremities Exam: Normal Inspection. 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 Patient was admitted to ICU for management and treatment of hypoxemic respiratory failure. Patient has recurrent pleural effusion, likely malignant. Plan: Right pleural effusion -CT Chest showed complete atelectasis of the right lung with endobronchial obstruction, large right pleural effusion -plan for thoracentesis today -cytology pending -patient to discuss with family for chest tube placement -s/p thoracentesis on 03/13/18 with 1.9L fluid removed -sputum culture pending, urine culture negative, blood culture negative for 5 days -continue doxy, merrem for 7-10 days -solumedrol 40 q12, pulmicort, mucomyst, xopenex, acetylcysteine -echo shows EF 53%, RVSP 61 -trops are indeterminate -IR, pulm, cardio consult Hx of stage 4 non small cell lung cancer -mets to the liver, lungs, bone -currently on immunotherapy -candidate for laser ablation of the right main stem with stent and tumor debulking -patient/family to make decision in regards to degree of aggressive treatment. May need transfer to receive treatment -heme/onc on consult Tachycardia-resolved -continue home toprol XL 100mg Conjunctivitis -L eye > R eye -improving -topical ciprofloxacin SAUD - resolved -Cr .9 -NS@ 30cc PPX/Diet -lovenox protonix -HHD Patient seen and case discussed with attending, Dr. Sidhu <Fred Sidhu - Last Filed: 03/17/18 16:46> Objective - Vital Signs/Intake and Output Vital Signs (last 24 hours): Temp Pulse Resp BP Pulse Ox 98.3 F 77 19 121/70 93 L 03/17/18 04:00 03/17/18 14:00 03/17/18 11:59 03/17/18 12:00 03/17/18 06:00 Intake and Output: 03/17/18 03/17/18 06:59 18:59 Intake Total 300 Output Total 250 Balance 50 - Medications Medications: Current Medications Acetylcysteine (Acetylcysteine 20%) 4 ml IH BIDRESP [facility] Last Admin: 03/17/18 07:08 Dose: 4 ml Albuterol/Ipratropium (Duoneb 3 Mg/0.5 Mg (3 Ml) Ud) 3 ml IH Q2H PRN PRN Reason: Shortness of Breath Last Admin: 03/12/18 07:42 Dose: 3 ml Alprazolam (Xanax) 0.125 mg PO BID PRN; Protocol PRN Reason: Anxiety Stop: 03/24/18 18:01 Benzonatate (Tessalon Perles) 100 mg PO TID [facility] Last Admin: 03/17/18 13:11 Dose: 100 mg Budesonide (Pulmicort Respules) 0.5 mg IH [id number] [facility] Last Admin: 03/17/18 07:08 Dose: 0.5 mg Ciprofloxacin (Ciloxan 0.3% Oph Soln) 2 drop OU Q6 [facility] Stop: 03/18/18 06:00 Last Admin: 03/17/18 13:11 Dose: 2 drop Doxycycline Hyclate (Doryx) 100 mg PO Q12 [facility]; Protocol Last Admin: 03/17/18 09:20 Dose: 100 mg Duloxetine HCl (Cymbalta) 60 mg PO DAILY [facility] Last Admin: 03/17/18 09:19 Dose: 60 mg Enoxaparin Sodium (Lovenox) 40 mg SC DAILY [facility]; Protocol Last Admin: 03/17/18 09:19 Dose: 40 mg Gabapentin (Neurontin) 300 mg PO TID [facility]; Protocol Last Admin: 03/17/18 13:11 Dose: 300 mg Guaifenesin (Robitussin) 100 mg PO Q4H PRN PRN Reason: Cough Last Admin: 03/17/18 09:20 Dose: 100 mg Sodium Chloride (Sodium Chloride 0.9%) 1,000 mls @ 30 mls/hr IV .Q24H [facility] Last Admin: 03/17/18 01:03 Dose: 30 mls/hr Meropenem (Merrem Iv 1 Gm Premix) 1 gm in 50 mls @ 12.5 mls/hr IVPB Q12 [facility]; Protocol Stop: 03/21/18 10:01 Last Admin: 03/17/18 09:20 Dose: 12.5 mls/hr Levalbuterol HCl (Xopenex) 0.63 mg IH TIDRESP [facility] Last Admin: 03/17/18 14:06 Dose: Not Given Methylprednisolone (Solu-Medrol) 20 mg IVP Q12 [facility] Last Admin: 03/17/18 09:18 Dose: 20 mg Metoprolol Succinate (Toprol Xl) 100 mg PO DAILY [facility] Last Admin: 03/17/18 09:19 Dose: 100 mg Oxycodone HCl (Oxycontin Extended Release Tab) 20 mg PO Q12 [facility] Last Admin: 03/17/18 09:17 Dose: 20 mg Pantoprazole Sodium (Protonix Ec Tab) 40 mg PO ACB [facility] Last Admin: 03/17/18 08:22 Dose: 40 mg - Labs Labs: 03/17/18 05:25 03/17/18 10:50 PT 16.2 SECONDS (9.4-12.5) H 03/11/18 20:55 INR 1.41 03/11/18 20:55 APTT 28.5 Seconds (25.1-36.5) 03/11/18 20:55 Attending/Attestation - Attestation I have personally seen and examined this patient.: Yes I have fully participated in the care of the patient.: Yes I have reviewed all pertinent clinical information, including history, physical exam and plan: Yes Notes (Text): 03/17/18 16:44 Medical record note made by the resident after discussion with my direction and input after the patient was personally seen and examined by me. I have reviewed the chart and agree that the record accurately reflects by personal performance of the history, physical exam, data review, and medical decision-making, in the course for the patient. I have also personally directed the plan of care. 67M w/ a reported PMH of adenocarcinoma of lungs, HTN, EtOH abuse, Anxeity, presented to [facility] ED on 03/11/18 w/ complaints of worsening SOB x2 weeks due to due to recurrent right sided pleural effusion, likely malignant and HCAP P neumonia. Patient had thoracentesis done on 01/11/19 and 1900 ml of fluid was removed. Repeat Chest X ray 03/16/18 showed complete opacification of right side. Patient will need chest tube placement .This was discussed with him again today. IR is consulted for chest tube placement. Pulmonary and ID is following. Patient is full code at this time. We will get Palliative care consult. Prognosis is guarded.
[2018-03-17] MEDS ORDERED: Albuterol 0.083% Inhal Sol (2.5 mg/3 mL) UD ONE (13:53)
--- NOTE | 2018-03-17 15:35 | PN ---
DATE: 03/17/2018 PULMONARY PROGRESS NOTE REFERRING PHYSICIAN: Fred Sidhu MD SUBJECTIVE: The patient is sitting up in bed. Reports improvement in cough and shortness of breath. No overnight events reported. No headache, rhinitis, chest pain, abdominal pain, nausea, vomiting, diarrhea, leg pain or leg swelling reported. OBJECTIVE: GENERAL: No acute distress. VITAL SIGNS: Blood pressure 121/70, pulse 71, oxygen saturation 93% and temperature 98.3. HEENT: Moist mucous membrane. Crowded airway. NECK: Supple. No JVD. LUNGS: No breath sounds on the right. Scattered rhonchi on the left. CARDIOVASCULAR: S1 and S2 audible. ABDOMEN: Soft and nontender. Nondistended. No organomegaly. EXTREMITIES: No bilateral lower extremity edema. NEUROLOGIC: Awake, alert and verbal. Follows commands. MEDICATIONS: Reviewed. Mucomyst 4 mL inhalation twice a day, DuoNeb 3 mL inhalation every 2 hours p.r.n., Tessalon Perles 100 mg three times a day, Pulmicort 0.5 mg every 12 hours, ciprofloxacin 2 drops each eye every 6 hours, doxycycline 100 mg every 12 hours, Cymbalta 60 mg daily, Lovenox 40 mg subcutaneously daily, gabapentin 300 mg three times a day, Robitussin 100 mg p.o. every 4 hours p.r.n., Xopenex 0.63 mg inhalation 3 times a day, meropenem 1 g every 12 hours, Solu-Medrol 20 mg every 12 hours, metoprolol succinate 100 mg daily, OxyContin extended release 20 mg every 12 hours, Protonix 40 mg in the morning and sodium chloride 0.9% 1000 mL at 30 mL per hour. LABORATORY DATA: Reviewed. WBC 14.9, RBC 3.98, hemoglobin 10.6, hematocrit 34.7, and platelets 138. Sodium 135, potassium 5.2, chloride 100, carbon dioxide 32, anion gap 9, BUN 38, creatinine 0.9, GFR greater than 60, random glucose 104, calcium 3.4, phosphorus 3.1, magnesium 1.8, total bilirubin 0.8, AST 86, ALT 118, alkaline phosphatase 94, lactate dehydrogenase 385, total protein 5.4, albumin 2.6, globulin 2.8, and albumin-globulin ratio 0.9. Electrocardiogram shows sinus rhythm with premature atrial complexes. IMPRESSION AND PLAN: History of [id number] lung cancer treated with radiation and chemotherapy, pneumonia, hypertension, history of alcohol abuse, anxiety disorder, gastroesophageal reflux disease, white-out right lung. Case has been discussed with Dr. Vaughn, the patient's primary oncologist, . Case discussed with the patient. Fluid needs to be removed and ideally after fluid is removed the patient will need bronchoscopy and stenting, awaiting family and the patient's decision. Continue bronchodilator, head of bed elevated at [address] Izquierdo has been consulted for chest tube placement. gastric prophylaxis, deep venous thrombosis prophylaxis, continue antibiotics. We will order chest x-ray, ABGs and labs in the morning. Critical care time spent more than 35 minutes. This patient was seen and examined with Dr. Read. Discussed assessment and plan as described above. Thank you for this consult and we will follow with you. Mark Luke APN Fred Read MD
[2018-03-18] MEDS: Ciprofloxacin 0.3% OPTH SOLN OU SCH ×2 (00:26→05:14)
--- NOTE | 2018-03-18 02:50 | PN ---
DATE: 03/17/2018 ONCOLOGY PROGRESS NOTE LOCATION: The patient is in ICU, bed 6. SUBJECTIVE: The patient is sitting up in bed, reports improvement in coughing and shortness of breath. No acute events overnight noted. No headache, rhinitis, chest pain, abdominal pain, nausea, vomiting or chills. No leg pain. The patient tells me overall the pain is controlled on the current regimen including that he was having before. It is improved with SCD stocking. PHYSICAL EXAMINATION: GENERAL: The patient is in no acute distress. VITAL SIGNS: Stable. Blood pressure is 120/70, pulse is 71, T-max is 98.4, and O2 sat 93%. HEENT: Head is normocephalic, atraumatic. Conjunctivae pale. Sclerae is anicteric. Pupils are equal and reactive to light and accommodation. Examination of the oropharynx reveals poor dentition. No oropharyngeal lesions are noted. NECK: Supple. There is no adenopathy. LUNGS: Reveals decreased breath sounds on the right side posteriorly with absent breath sound, scattered rhonchi in the left lung posteriorly. CARDIOVASCULAR: Reveals S1 and S2 are normal. No gallop or murmur is heard. ABDOMEN: Soft, nontender. There is no rebound, rigidity or guarding noted. EXTREMITIES: Reveals bilateral lower extremity is to be intact with no evidence of edema or any other findings of cyanosis or clubbing. NEUROLOGIC: Examination reveals higher functions to be normal. Plantars are flexors. No focal deficits are noted. AND RECTAL: Deferred. MEDICATIONS: Reviewed. Mucomyst 4 mL inhalation twice a day, DuoNeb 3 mL inhalation every 12 hours p.r.n., Tessalon Perles 100 mg 3 times a day, Pulmicort 0.5 mg every 12 hours, ciprofloxacin eyedrops 2 drops in each eye every 6 hours, doxycycline 100 mg every 12 hours, Cymbalta 60 mg daily, Lovenox 40 mg subcutaneously injected daily, gabapentin 300 mg t.i.d., Robitussin 100 mg every 4 hours p.r.n., Xopenex 0.63 mg inhalation 3 times a day, meropenem 1 g IV every 12 hours, Solu-Medrol 20 mg every 12 hours, metoprolol succinate 100 mg p.o. daily, oxycodone extended release 20 mg every 12 hours, Protonix 40 mg in the morning and sodium chloride 0.9% 100 mL at 30 mL per hour. LABORATORY DATA: Reviewed. WBC 14.9, hemoglobin 10.6, hematocrit 34.7, and platelets 138,000. Sodium 135, K is 5.2, chloride 100, CO2 is 32, anion gap is 9, BUN is 38, creatinine is 0.9, GFR is greater than 30, phosphorus 3.1, magnesium 1.8, total bilirubin 0.8, AST 86, ALT is 118, alkaline phosphatase 94, LDH is 385, total protein 5.4, albumin 2.6, globulin ratio being reversed. Electrocardiogram shows sinus rhythm with premature APCs. ASSESSMENT AND PLAN: The patient has stage IV metastatic non-small cell carcinoma of the lung, status post chemotherapy, now has postobstructive pneumonitis and significant fluid in the right side of the lung, history of alcohol abuse, history of anxiety disorder, gastroesophageal reflux disease. I had a long discussion with the patient. I spoke to the patient's daughter and the patient's , Laura as well. Dr. Read had also spoken to the attending who has been taking care of the patient at [facility] with Dr[facility] Richey and the current consents is based on the chest x-ray and the plan would be to put a chest tube in and drain the fluid for 48 hours to see if there is any reexpansion of the lung and then decide what to do further. The patient is reluctant for a bronchoscopy or placement of stent at this point in time. The patient is leaning towards DNR/DNI and still continue with the therapy. I agreed with the patient that we would not be very aggressive putting a chest tube to drain in will be based on improving his quality of life will be entirely appropriate. I have already reached out with Dr. Smooth Izquierdo who is going to try to setup a plan and if everything goes well, we can exchange the tube for a Pleurx catheter. Hopefully, the lung drains completely as the lung expands for the patient. Routine post-exam instructions have been given to the patient. Time spent with the patient is greater than 45 minutes. Please make a note, this is a complex patient with multiple comorbid medical issues. Festus Vaughn MD [facility] # [phone]
[2018-03-18] MEDS: Sodium Chloride 0.9% 1,000 ML IV SCH (05:14)
[2018-03-18 06:39] LABS: ARTERIAL BLOOD GAS HCO3 30.3 mmol/L (21-28); ARTERIAL BLOOD GAS HEMOGLOBIN 9.9 g/dL (11.7-17.4); ARTERIAL BLOOD GAS O2 CAPACITY 13.8 mL/dl (16-24); ARTERIAL BLOOD GAS O2 CONTENT 13.7 ML/dl (15-23); ARTERIAL BLOOD GAS O2 SAT 99.3 % (95-98); ARTERIAL BLOOD GAS PCO2 50 mm/Hg (35-45); ARTERIAL BLOOD GAS PH 7.39 (7.35-7.45); ARTERIAL BLOOD GAS TCO2 31.8 mmol.L (22-28)
[2018-03-18 06:45] LABS: BASO # 0.01 K/mm3 (0.0-2.0); BASO % 0.1 % (0.0-3.0); GRAN # 10.49 (1.4-6.5); GRAN % 89.8 % (50.0-68.0); LYMPH # 0.7 (1.2-3.4); LYMPH % 5.6 % (22.0-35.0); MEAN CELL VOLUME 86.1 fl (80.0-105.0); MEAN CORPUSCULAR HEMOGLOBIN 26.2 pg (25.0-35.0); MEAN CORPUSCULAR HGB CONC 30.5 g/dl (31.0-37.0); MEAN PLATELET VOLUME 11.1 fl (7.0-11.0); MONO # 0.5 (0.1-0.6); MONO % 4.5 % (1.0-6.0); RBC 3.81 10^6/uL (3.5-6.1); RED CELL DISTRIBUTION WIDTH 16.3 % (11.5-14.5); WHITE BLOOD COUNT 11.7 10^3/uL (4.5-11.0)
[2018-03-18 07:13] LABS: ALB/GLOB RATIO 0.9 (1.1-1.8); ALBUMIN 2.4 g/dL (3.0-4.8); ALT/SGPT 92 U/L (7-56); AST/SGOT 51 U/L (17-59); BLOOD UREA NITROGEN 38 mg/dL (7-21); CALCIUM 8.1 mg/dL (8.4-10.5); GFR NON-AFRICAN AMERICAN > 60
[2018-03-18] MEDS: Acetylcysteine 20% Inhal Soln (4ml) IH SCH ×2 (07:34→20:50)
[2018-03-18] MEDS: Budesonide 0.5 mg/2 ml Inhal Susp UD IH SCH ×2 (07:36→20:51)
[2018-03-18] MEDS: Levalbuterol 0.63 MG/3 ML Inhal Soln UD IH SCH ×3 (07:36→20:51)
--- NOTE | 2018-03-18 08:38 | RAD ---
Date of service: 03/18/2018 HISTORY: follow up COMPARISON: 03/26/2018. FINDINGS: The left-sided MediPort terminates in the SVC LUNGS: There is redemonstration of complete opacification the right hemithorax. The left lung is well inflated. There is subsegmental atelectasis in the left lower lobe PLEURA: No pleural effusions or pneumothorax. CARDIOVASCULAR: The heart is normal in size. No aortic atherosclerotic calcification present. OSSEOUS STRUCTURES: Within normal limits for the patient's age. VISUALIZED UPPER ABDOMEN: Normal. OTHER FINDINGS: None. IMPRESSION: Little interval change in complete opacification of the right hemithorax likely related to a large pleural effusion.
[2018-03-18] MEDS ORDERED: Midazolam 2 MG/2 ML VIAL ONE (08:59)
[2018-03-18] MEDS ORDERED: Lidocaine 1% Inj (20ml) ONE (09:00)
[2018-03-18] MEDS: Pantoprazole 40 mg EC Tab PO SCH (09:22)
[2018-03-18] MEDS: MethylPREDNISolone 40 mg Vial IVP SCH ×2 (09:23→21:13)
[2018-03-18] MEDS: Meropenem IV 1 gm in NS 1 GM/50 ML BAG IVPB SCH ×2 (09:23→21:31)
[2018-03-18] MEDS: Metoprolol Succinate 100 mg XL Tab PO SCH (09:26)
[2018-03-18] MEDS: Enoxaparin 40 mg Syringe SC SCH (09:26)
[2018-03-18] MEDS ORDERED: Midazolam 2 MG/2 ML VIAL IVP ONE (10:30)
--- NOTE | 2018-03-18 11:25 | PN ---
DATE: 03/18/2018 PULMONARY PROGRESS NOTE REFERRING PHYSICIAN: Fred Sidhu MD SUBJECTIVE: The patient is lying in bed, getting ready to be taken for CAT scan. Reports cough and shortness of breath with some improvement. No overnight events reported. No headache, rhinitis, chest pain, abdominal pain, nausea, vomiting, diarrhea, leg pain or leg swelling reported. OBJECTIVE: GENERAL: No acute distress. VITAL SIGNS: Blood pressure 116/65, pulse 75 and oxygen saturation 98%. HEENT: Moist mucous membranes. Crowded airway. NECK: Supple. No JVD. LUNGS: Absent breath sounds on the right, scattered rhonchi on the left. CARDIOVASCULAR: S1 and S2 audible. ABDOMEN: Soft and nontender. No distention. No organomegaly. EXTREMITIES: No bilateral lower extremity edema. NEUROLOGIC: Awake, alert and verbal. Follows simple commands. MEDICATIONS: Reviewed. Mucomyst 4 mL inhalation twice a day, DuoNeb 3 mL inhalation every 2 hours p.r.n., Xanax 0.125 mg p.o. twice a day p.r.n., Tessalon Perles 100 mg three times a day, Pulmicort 0.5 mg every 12 hours, doxycycline 100 mg every 12 hours, Cymbalta 60 mg daily, Lovenox 40 mg subcutaneously daily, Neurontin 300 mg three times a day, Robitussin 100 mg every 4 hours p.r.n., Xopenex 0.63 mg inhalation three times a day, meropenem 1 g every 12 hours, Solu-Medrol 20 mg IV push every 12 hours, metoprolol succinate 100 mg daily, Protonix 40 mg in the morning and sodium chloride 0.9% 1000 mL at 30 mL per hour. LABORATORY DATA: Reviewed. WBC 11.7, RBC 3.81, hemoglobin 10, hematocrit 32.8, and platelets 127. PCO2 of 50, PO2 of 124, HCO3 of 30.3 and ABG pH 7.39. Sodium 135, potassium 5.3, chloride 100, carbon dioxide 33, anion gap 7, BUN 38, creatinine 0.8, GFR greater than 60, calcium 8.1, phosphorus 3.6, magnesium 1.8, total bilirubin 0.8, AST 51, ALT 91, alkaline phosphatase 89, total protein 4.9, albumin 2.4, globulin 2.6, and albumin-globulin ratio 0.9. Chest x-ray shows little interval change and complete opacification of the right hemithorax likely related to a large pleural effusion. Chest CT is pending report. IMPRESSION AND PLAN: History of non-small cell lung cancer treated with radiation and chemotherapy, pneumonia, hypertension, history of alcohol abuse, anxiety disorder, gastroesophageal reflux disease, white-out on the right lung. Current plan is for chest tube to be placed to drain the fluids to see if there is reexpansion of the lung. Further treatment plan after chest tube is placed will be discussed further with the patient and family. The patient has consult with the Dr. Smooth Izquierdo for chest tube placement. Continue bronchodilators. Head of bed elevated at 45 degrees, gastric prophylaxis, deep venous thrombosis prophylaxis, continue antibiotics. Labs to be done in morning. Critical care time spent more than 35 minutes. This patient was seen and examined with Dr. Read. Discussed assessment and plan as described above. Thank you for this consult and we will follow with you. Mark Luke APN Fred Read MD [facility]
--- NOTE | 2018-03-18 12:27 | CP.PCM.APN ---
Subjective - Date & Time of Evaluation Date of Evaluation: 03/18/18 Time of Evaluation: 12:30 - Subjective Subjective: pt seen and examined in ICU pt sleepy but arousable to verbal stimuli pt with chest tube draining, pt verbalizes feeling better s/p chest tube insertion Review of Systems - Constitutional Constitutional: Fatigue, Weakness Objective - Vital Signs/Intake and Output Vital Signs (last 24 hours): Temp Pulse Resp BP Pulse Ox 98.3 F 78 20 107/63 89 L 03/17/18 04:00 03/18/18 11:59 03/18/18 11:59 03/18/18 12:00 03/18/18 11:59 Intake and Output: 03/18/18 03/18/18 06:59 18:59 Intake Total 360 Output Total 500 Balance -140 - Medications Medications: Current Medications Acetylcysteine (Acetylcysteine 20%) 4 ml IH BIDRESP DAVID Last Admin: 03/18/18 07:34 Dose: 4 ml Albuterol/Ipratropium (Duoneb 3 Mg/0.5 Mg (3 Ml) Ud) 3 ml IH Q2H PRN PRN Reason: Shortness of Breath Last Admin: 03/12/18 07:42 Dose: 3 ml Alprazolam (Xanax) 0.125 mg PO BID PRN; Protocol PRN Reason: Anxiety Stop: 03/24/18 18:01 Last Admin: 03/17/18 17:17 Dose: 0.125 mg Benzonatate (Tessalon Perles) 100 mg PO TID [facility] Last Admin: 03/18/18 09:23 Dose: 100 mg Budesonide (Pulmicort Respules) 0.5 mg IH [id number] [facility] Last Admin: 03/18/18 07:36 Dose: 0.5 mg Doxycycline Hyclate (Doryx) 100 mg PO Q12 [facility]; Protocol Last Admin: 03/18/18 09:23 Dose: 100 mg Duloxetine HCl (Cymbalta) 60 mg PO DAILY [facility] Last Admin: 03/18/18 09:25 Dose: 60 mg Enoxaparin Sodium (Lovenox) 40 mg SC DAILY [facility]; Protocol Last Admin: 03/18/18 09:26 Dose: Not Given Gabapentin (Neurontin) 300 mg PO TID [facility]; Protocol Last Admin: 03/18/18 09:23 Dose: 300 mg Guaifenesin (Robitussin) 100 mg PO Q4H PRN PRN Reason: Cough Last Admin: 03/17/18 21:08 Dose: 100 mg Sodium Chloride (Sodium Chloride 0.9%) 1,000 mls @ 30 mls/hr IV .Q24H [facility] Last Admin: 03/18/18 05:14 Dose: 30 mls/hr Meropenem (Merrem Iv 1 Gm Premix) 1 gm in 50 mls @ 12.5 mls/hr IVPB Q12 [facility]; Protocol Stop: 03/21/18 10:01 Last Admin: 03/18/18 09:23 Dose: 12.5 mls/hr Levalbuterol HCl (Xopenex) 0.63 mg IH TIDRESP [facility] Last Admin: 03/18/18 07:36 Dose: 0.63 mg Methylprednisolone (Solu-Medrol) 20 mg IVP Q12 [facility] Last Admin: 03/18/18 09:23 Dose: 20 mg Metoprolol Succinate (Toprol Xl) 100 mg PO DAILY [facility] Last Admin: 03/18/18 09:26 Dose: Not Given Pantoprazole Sodium (Protonix Ec Tab) 40 mg PO ACB [facility] Last Admin: 03/18/18 09:22 Dose: 40 mg - Labs Labs: 03/18/18 06:00 03/18/18 06:00 PT 16.2 SECONDS (9.4-12.5) H 03/11/18 20:55 INR 1.41 03/11/18 20:55 APTT 28.5 Seconds (25.1-36.5) 03/11/18 20:55 - Constitutional Appears: No Acute Distress, Chronically Ill - Eye Exam Pupil Exam: NORMAL ACCOMODATION, PERRL - ENT Exam ENT Exam: Mucous Membranes Moist - Respiratory Exam Respiratory Exam: Decreased Breath Sounds, NORMAL BREATHING PATTERN Additional comments: chest tube in place draining sanginous fluid - GI/Abdominal Exam GI & Abdominal Exam: Soft - Psychiatric Exam Psychiatric exam: Flat Affect, Normal Mood - Skin Skin Exam: Dry, Warm
--- NOTE | 2018-03-18 13:55 | CP.PCM.PN ---
<Neris Irwin - Last Filed: 03/18/18 13:46> Subjective - Date & Time of Evaluation Date of Evaluation: 03/18/18 Time of Evaluation: 09:00 - Subjective Subjective: Neris Irwin PGY1 Hospital Progress Note Patient seen and examined at bedside this morning. No acute events reported overnight. Offers no new complaints today. Received chest tube placement today. Objective - Vital Signs/Intake and Output Vital Signs (last 24 hours): Temp Pulse Resp BP Pulse Ox 98.3 F 78 20 107/63 89 L 03/17/18 04:00 03/18/18 11:59 03/18/18 11:59 03/18/18 12:00 03/18/18 11:59 Intake and Output: 03/18/18 03/18/18 06:59 18:59 Intake Total 360 50 Output Total 500 Balance -140 50 - Medications Medications: Current Medications Acetylcysteine (Acetylcysteine 20%) 4 ml IH BIDRESP DAVID Last Admin: 03/18/18 07:34 Dose: 4 ml Albuterol/Ipratropium (Duoneb 3 Mg/0.5 Mg (3 Ml) Ud) 3 ml IH Q2H PRN PRN Reason: Shortness of Breath Last Admin: 03/12/18 07:42 Dose: 3 ml Alprazolam (Xanax) 0.125 mg PO BID PRN; Protocol PRN Reason: Anxiety Stop: 03/24/18 18:01 Last Admin: 03/17/18 17:17 Dose: 0.125 mg Benzonatate (Tessalon Perles) 100 mg PO TID [facility] Last Admin: 03/18/18 13:36 Dose: Not Given Budesonide (Pulmicort Respules) 0.5 mg IH [id number] [facility] Last Admin: 03/18/18 07:36 Dose: 0.5 mg Doxycycline Hyclate (Doryx) 100 mg PO Q12 [facility]; Protocol Last Admin: 03/18/18 09:23 Dose: 100 mg Duloxetine HCl (Cymbalta) 60 mg PO DAILY [facility] Last Admin: 03/18/18 09:25 Dose: 60 mg Enoxaparin Sodium (Lovenox) 40 mg SC DAILY [facility]; Protocol Last Admin: 03/18/18 09:26 Dose: Not Given Gabapentin (Neurontin) 300 mg PO TID [facility]; Protocol Last Admin: 03/18/18 13:35 Dose: Not Given Guaifenesin (Robitussin) 100 mg PO Q4H PRN PRN Reason: Cough Last Admin: 03/17/18 21:08 Dose: 100 mg Sodium Chloride (Sodium Chloride 0.9%) 1,000 mls @ 30 mls/hr IV .Q24H [facility] Last Admin: 03/18/18 05:14 Dose: 30 mls/hr Meropenem (Merrem Iv 1 Gm Premix) 1 gm in 50 mls @ 12.5 mls/hr IVPB Q12 [facility]; Protocol Stop: 03/21/18 10:01 Last Admin: 03/18/18 09:23 Dose: 12.5 mls/hr Levalbuterol HCl (Xopenex) 0.63 mg IH TIDRESP [facility] Last Admin: 03/18/18 13:40 Dose: 0.63 mg Methylprednisolone (Solu-Medrol) 20 mg IVP Q12 [facility] Last Admin: 03/18/18 09:23 Dose: 20 mg Metoprolol Succinate (Toprol Xl) 100 mg PO DAILY [facility] Last Admin: 03/18/18 09:26 Dose: Not Given Pantoprazole Sodium (Protonix Ec Tab) 40 mg PO ACB [facility] Last Admin: 03/18/18 09:22 Dose: 40 mg - Labs Labs: 03/18/18 06:00 03/18/18 06:00 PT 16.2 SECONDS (9.4-12.5) H 03/11/18 20:55 INR 1.41 03/11/18 20:55 APTT 28.5 Seconds (25.1-36.5) 03/11/18 20:55 - Additional Findings Additional findings: - Constitutional Appears: Non-toxic, Cachectic - Head Exam Head Exam: ATRAUMATIC, NORMOCEPHALIC - Eye Exam Eye Exam: EOMI, Normal appearance - ENT Exam ENT Exam: Mucous Membranes Dry - Respiratory Exam Respiratory Exam: Decreased Breath Sounds (right lung field), Rales (left lung). Chest tube in place draining yellow/red fluid. No respiratory distress. - Cardiovascular Exam Cardiovascular Exam: Tachycardia, +S1, +S2 - GI/Abdominal Exam GI & Abdominal Exam: Soft, Normal Bowel Sounds - Extremities Exam Extremities Exam: Normal Inspection. 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 Patient was admitted to ICU for management and treatment of hypoxemic respiratory failure. Patient has recurrent pleural effusion, likely malignant. Plan: Right pleural effusion - improved -CT Chest showed complete atelectasis of the right lung with endobronchial obstruction, large right pleural effusion -repeat CT chest and CXR today -chest tube placed on 03/18/18, drained 2 liters of serransanginous fluid -cytology pending -patient to discuss with family for chest tube placement -s/p thoracentesis on 03/13/18 with 1.9L fluid removed -sputum culture pending, urine culture negative, blood culture negative for 5 days -continue doxy, merrem for 7-10 days. WBC downtrending -solumedrol 40 q12, pulmicort, mucomyst, xopenex, acetylcysteine -echo shows EF 53%, RVSP 61 -trops are indeterminate -IR, pulm, cardio consult Hx of stage 4 non small cell lung cancer -mets to the liver, lungs, bone -currently on immunotherapy -candidate for laser ablation of the right main stem with stent and tumor debulking -patient/family to make decision in regards to degree of aggressive treatment. May need transfer to receive treatment -heme/onc on consult Mild hyperkalemia -if not improved, will give kayexalate Tachycardia-resolved -continue home toprol XL 100mg Conjunctivitis -L eye > R eye -improving -topical ciprofloxacin PPX/Diet -lovenox protonix -HHD Patient seen and case discussed with attending, Dr. Sidhu <Fred Sidhu - Last Filed: 03/22/18 15:47> Objective - Vital Signs/Intake and Output Vital Signs (last 24 hours): Temp Pulse Resp BP Pulse Ox 98.1 F 102 H 18 136/83 95 03/22/18 12:00 03/22/18 12:00 03/22/18 12:00 03/22/18 12:00 03/22/18 05:36 Intake and Output: 03/22/18 03/22/18 06:59 18:59 Intake Total 360 Output Total 930 Balance -570 - Medications Medications: Current Medications Acetylcysteine (Acetylcysteine 20%) 4 ml IH BIDRESP [facility] Last Admin: 03/22/18 08:14 Dose: 4 ml Albuterol/Ipratropium (Duoneb 3 Mg/0.5 Mg (3 Ml) Ud) 3 ml IH Q2H PRN PRN Reason: Shortness of Breath Last Admin: 03/20/18 19:34 Dose: 3 ml Alprazolam (Xanax) 0.125 mg PO BID PRN; Protocol PRN Reason: Anxiety Stop: 03/24/18 18:01 Last Admin: 03/19/18 11:36 Dose: 0.125 mg Benzonatate (Tessalon Perles) 100 mg PO TID [facility] Last Admin: 03/22/18 14:13 Dose: 100 mg Budesonide (Pulmicort Respules) 0.5 mg IH [id number] [facility] Last Admin: 03/22/18 08:15 Dose: 0.5 mg Duloxetine HCl (Cymbalta) 60 mg PO DAILY [facility] Last Admin: 03/22/18 10:45 Dose: 60 mg Enoxaparin Sodium (Lovenox) 40 mg SC DAILY [facility]; Protocol Last Admin: 03/22/18 10:43 Dose: 40 mg Gabapentin (Neurontin) 300 mg PO TID [facility]; Protocol Last Admin: 03/22/18 14:13 Dose: 300 mg Guaifenesin (Robitussin) 100 mg PO Q4H PRN PRN Reason: Cough Last Admin: 03/20/18 21:09 Dose: 100 mg Sodium Chloride (Sodium Chloride 0.9%) 1,000 mls @ 60 mls/hr IV .[id number] [facility] Last Admin: 03/22/18 10:48 Dose: 60 mls/hr Levalbuterol HCl (Xopenex) 0.63 mg IH TIDRESP [facility] Last Admin: 03/22/18 14:22 Dose: 0.63 mg Methylprednisolone (Solu-Medrol) 20 mg IVP Q12 [facility] Last Admin: 03/22/18 10:43 Dose: 20 mg Metoprolol Succinate (Toprol Xl) 100 mg PO DAILY [facility] Last Admin: 03/22/18 10:47 Dose: 100 mg Morphine Sulfate (Morphine) 2 mg IVP Q4H PRN PRN Reason: Pain, severe (8-10) Last Admin: 03/21/18 21:58 Dose: 2 mg Nystatin (Nystatin Oral Susp) 5 ml PO QID [facility] Last Admin: 03/22/18 14:12 Dose: 5 ml Oxycodone HCl (Oxycontin Extended Release Tab) 20 mg PO Q12 [facility] Last Admin: 03/22/18 10:46 Dose: 20 mg Pantoprazole Sodium (Protonix Ec Tab) 40 mg PO ACB [facility] Last Admin: 03/22/18 08:59 Dose: 40 mg Polyethylene Glycol (Miralax) 17 gm PO BID [facility] Last Admin: 03/22/18 11:02 Dose: Not Given Tamsulosin HCl (Flomax) 0.4 mg PO DAILY [facility] Last Admin: 03/22/18 10:47 Dose: 0.4 mg - Labs Labs: 03/22/18 06:00 03/22/18 06:00 PT 16.2 SECONDS (9.4-12.5) H 03/11/18 20:55 INR 1.41 03/11/18 20:55 APTT 28.5 Seconds (25.1-36.5) 03/11/18 20:55 Attending/Attestation - Attestation I have personally seen and examined this patient.: Yes I have fully participated in the care of the patient.: Yes I have reviewed all pertinent clinical information, including history, physical exam and plan: Yes Notes (Text): 03/22/18 15:47 Medical record note made by the resident after discussion with my direction and input after the patient was personally seen and examined by me. I have reviewed the chart and agree that the record accurately reflects by personal performance of the history, physical exam, data review, and medical decision-making, in the course for the patient. I have also personally directed the plan of care.
--- NOTE | 2018-03-18 16:12 | RAD ---
Date of service: 03/18/2018 HISTORY: rt chest tube COMPARISON: 03/18/2018 FINDINGS: MediPort terminates in the SVC. LUNGS: There is compressive atelectasis of the right lung. The left lung is clear. PLEURA: Status post right pigtail catheter chest tube which overlies the right costophrenic angle. There is interval significant decrease in size of right pleural effusion with residual small effusion. There is also a moderate right pneumothorax with compressive atelectasis of the right lung and mild shift of mediastinum to the left. There are linear septations in the upper pleural cavity which may represent a loculated component. CARDIOVASCULAR: The heart is normal in size. There are aortic atherosclerotic calcifications present. OSSEOUS STRUCTURES: Within normal limits for the patient's age. VISUALIZED UPPER ABDOMEN: Normal. OTHER FINDINGS: None. IMPRESSION: 1. Status post right chest tube, interval significant decrease in right pleural effusion with residual small effusion. 2. Moderate right pneumothorax with presumable loculated component superiorly. Compressive atelectasis of the right lung and shift of mediastinum to the left.
[2018-03-18] MEDS ORDERED: Sod Polystyrene Sulf 15 gm/60 ml Susp PO ONE (16:19)
--- NOTE | 2018-03-18 18:51 | PN ---
DATE: 03/18/2018 SUBJECTIVE: The patient seen earlier today in room 128, bed 6. No fevers and no chills. PHYSICAL EXAMINATION: VITAL SIGNS: Temperature is 98, blood pressure is 120/60, respiratory rate 23, heart rate of 86. HEENT: Unremarkable. NECK: Supple. LUNGS: Decreased breath sounds. HEART: Normal S1, S2. ABDOMEN: Soft, nontender. LABORATORY DATA: Laboratory examination reveals the white count is down to 11,700. Coagulation is noted. Chemistries reveal the repeat procalcitonin is down to 0.19 and creatinine 0.8. Urinalysis is noted and serology is noted. Microbiology reveals the blood cultures are negative. Urine cultures are negative and MRSA screen is pending and review of orders reveals the patient to be on p.o. doxycycline, which requires renewal and IV meropenem. The patient is also on Solu-Medrol. ASSESSMENT AND PLAN: A 67-year-old male who is ALLERGIC TO PENICILLIN AND AZITHROMYCIN, status post thoracentesis of right side with 1.9 liters removed, now extubated with a right-sided healthcare-associated pneumonia and complete opacification of the right side with acute kidney injury, stage IV lung cancer with metastases to the bone and liver and chronic obstructive lung disease, hypertension, alcohol abuse, on day #7 of doxycycline and meropenem, will complete 7-10 days. We will follow WBCs and the patient for chest tube placement. We will follow with you. Edgard Mackey MD
--- NOTE | 2018-03-18 19:24 | CT ---
PROCEDURE: CT-guided right chest tube placement HISTORY: Right lung CA. Large right pleural effusion. Needs chest tube drainage PHYSICIAN(S): Smooth Izquierdo MD. TECHNIQUE: The relative risks and indications for the procedure were explained to the patient and informed consent obtained. The patient was placed in a slight left decubitus position on the CT scanner and preliminary images through the chest performed. This revealed a large complex right pleural effusion with collapse of the right lung.. A right lateral approach was selected and the area prepped/draped in the usual sterile fashion. Conscious sedation and monitoring were provided throughout the procedure by nurse. An 18-gauge needle was advanced into the right pleural space and serosanguineous fluid aspirated. A 0.035 guidewire was coiled posteriorly and superiorly. Sequential dilatation was performed with subsequent placement of a 14 Bengali right pigtail chest tube. Approximately 1700 cc of bloody fluid was aspirated. The chest tube was secured and placed to 30 cm low continuous suction. The patient tolerated the procedure well. A cytology specimen was sent. IMPRESSION: 1. CT-guided right chest tube placement as described above.
[2018-03-18] MEDS: oxyCODONE 20 mg ER Tab (oxyCONTIN) PO SCH (21:14)
[2018-03-19 06:35] LABS: GRAN # 13.92 (1.4-6.5); HEMOGLOBIN 11.3 g/dL (14.0-18.0); LYMPH # 0.8 (1.2-3.4); LYMPH % 5.4 % (22.0-35.0); MEAN CELL VOLUME 84.2 fl (80.0-105.0); MEAN CORPUSCULAR HEMOGLOBIN 26.3 pg (25.0-35.0); MEAN CORPUSCULAR HGB CONC 31.2 g/dl (31.0-37.0); MEAN PLATELET VOLUME 11.2 fl (7.0-11.0); MONO # 0.7 (0.1-0.6); MONO % 4.6 % (1.0-6.0); RBC 4.3 10^6/uL (3.5-6.1); RED CELL DISTRIBUTION WIDTH 16.6 % (11.5-14.5); WHITE BLOOD COUNT 15.5 10^3/uL (4.5-11.0)
[2018-03-19 07:21] LABS: ALB/GLOB RATIO 0.9 (1.1-1.8); ALBUMIN 2.1 g/dL (3.0-4.8); ALT/SGPT 63 U/L (7-56); AST/SGOT 29 U/L (17-59); BLOOD UREA NITROGEN 39 mg/dL (7-21); CALCIUM 7.7 mg/dL (8.4-10.5); GFR NON-AFRICAN AMERICAN > 60
[2018-03-19] MEDS: Pantoprazole 40 mg EC Tab PO SCH (08:28)
[2018-03-19] MEDS: Acetylcysteine 20% Inhal Soln (4ml) IH SCH ×2 (08:30→19:16)
[2018-03-19] MEDS: Levalbuterol 0.63 MG/3 ML Inhal Soln UD IH SCH ×3 (08:32→19:16)
[2018-03-19] MEDS: Budesonide 0.5 mg/2 ml Inhal Susp UD IH SCH ×2 (08:32→19:16)
[2018-03-19] MEDS: Metoprolol Succinate 100 mg XL Tab PO SCH (09:51)
[2018-03-19] MEDS: oxyCODONE 20 mg ER Tab (oxyCONTIN) PO SCH ×2 (09:51→21:39)
[2018-03-19] MEDS: Enoxaparin 40 mg Syringe SC SCH (09:54)
[2018-03-19] MEDS: MethylPREDNISolone 40 mg Vial IVP SCH ×2 (09:57→21:39)
--- NOTE | 2018-03-19 10:37 | PN ---
DATE: 03/19/2018 SUBJECTIVE: The patient is seen earlier this morning in room 260, is awake and alert, doing well. No fevers. PHYSICAL EXAMINATION: VITAL SIGNS: Temperature is 98, blood pressure is 108/50, respiratory rate of 18, heart rate of 97. HEENT: Unremarkable. NECK: Supple. LUNGS: Have decreased breath sounds. HEART: Normal S1, S2. ABDOMEN: Soft, nontender. LABORATORY DATA: Laboratory examination reveals a white count of 15,500, hemoglobin of 11, platelets of 124. Chemistries reveals a BUN of 39, creatinine of 0.9. Urinalysis is noted. Serology is noted. Urine for Legionella antigen is negative. Microbiology reveals the blood cultures are negative. Urine cultures are negative. Review of orders reveals the patient is on p.o. doxycycline, IV meropenem, Solu-Medrol. ASSESSMENT AND PLAN: This is a 67-year-old male who is ALLERGIC TO PENICILLIN AND AZITHROMYCIN, status post thoracentesis on the right side, 1.9 L removed extubated, now with right-sided healthcare-associated pneumonia, complete opacification of right side with acute kidney injury, stage IV lung cancer, metastases to bone and liver and chronic obstructive lung disease, and hypertension. We will discontinue the antibiotics, today is day #8 of antibiotics. The patient is on steroids which may explain the white count of 15,000, negative cultures. Dr. Smooth Izquierdo's note is reviewed, a CT-guided drain insertion. We will discontinue the antibiotics at this point and follow closely with you. The patient is at high risk of developing new nosocomial infections. Edgard Mackey MD
--- NOTE | 2018-03-19 11:01 | CP.PCM.APN ---
Subjective - Date & Time of Evaluation Date of Evaluation: 03/19/18 Time of Evaluation: 09:00 - Subjective Subjective: pt seenannd examined with Rn at bedside right chest tube intact with good output Pt has no complaints at this time , not very talkative today Review of Systems - Review of Systems Review of Systems: pt denies any complaints when asked Objective - Vital Signs/Intake and Output Vital Signs (last 24 hours): Temp Pulse Resp BP Pulse Ox 98.3 F 105 H 18 130/69 65 L 03/17/18 04:00 03/19/18 09:51 03/18/18 17:59 03/19/18 09:51 03/18/18 14:00 Intake and Output: 03/19/18 03/19/18 06:59 18:59 Intake Total 210 Output Total 130 Balance 210 -130 - Medications Medications: Current Medications Acetylcysteine (Acetylcysteine 20%) 4 ml IH BIDRESP DAVID Last Admin: 03/18/18 20:50 Dose: 4 ml Albuterol/Ipratropium (Duoneb 3 Mg/0.5 Mg (3 Ml) Ud) 3 ml IH Q2H PRN PRN Reason: Shortness of Breath Last Admin: 03/12/18 07:42 Dose: 3 ml Alprazolam (Xanax) 0.125 mg PO BID PRN; Protocol PRN Reason: Anxiety Stop: 03/24/18 18:01 Last Admin: 03/17/18 17:17 Dose: 0.125 mg Benzonatate (Tessalon Perles) 100 mg PO TID [facility] Last Admin: 03/19/18 09:51 Dose: 100 mg Budesonide (Pulmicort Respules) 0.5 mg IH [id number] [facility] Last Admin: 03/19/18 08:32 Dose: 0.5 mg Duloxetine HCl (Cymbalta) 60 mg PO DAILY DAVID Last Admin: 03/19/18 09:51 Dose: 60 mg Enoxaparin Sodium (Lovenox) 40 mg SC DAILY [facility]; Protocol Last Admin: 03/19/18 09:54 Dose: 40 mg Gabapentin (Neurontin) 300 mg PO TID [facility]; Protocol Last Admin: 03/19/18 09:51 Dose: 300 mg Guaifenesin (Robitussin) 100 mg PO Q4H PRN PRN Reason: Cough Last Admin: 03/17/18 21:08 Dose: 100 mg Sodium Chloride (Sodium Chloride 0.9%) 1,000 mls @ 30 mls/hr IV .Q24H [facility] Last Admin: 03/18/18 05:14 Dose: 30 mls/hr Levalbuterol HCl (Xopenex) 0.63 mg IH TIDRESP [facility] Last Admin: 03/19/18 08:32 Dose: 0.63 mg Methylprednisolone (Solu-Medrol) 20 mg IVP Q12 [facility] Last Admin: 03/19/18 09:57 Dose: 20 mg Metoprolol Succinate (Toprol Xl) 100 mg PO DAILY [facility] Last Admin: 03/19/18 09:51 Dose: 100 mg Oxycodone HCl (Oxycontin Extended Release Tab) 20 mg PO Q12 [facility] Last Admin: 03/19/18 09:51 Dose: 20 mg Pantoprazole Sodium (Protonix Ec Tab) 40 mg PO ACB [facility] Last Admin: 03/19/18 08:28 Dose: Not Given - Labs Labs: 03/19/18 06:00 03/19/18 06:00 PT 16.2 SECONDS (9.4-12.5) H 03/11/18 20:55 INR 1.41 03/11/18 20:55 APTT 28.5 Seconds (25.1-36.5) 03/11/18 20:55 - Constitutional Appears: Non-toxic, No Acute Distress - Head Exam Head Exam: NORMAL INSPECTION - Eye Exam Eye Exam: Normal appearance, PERRL - Respiratory Exam Respiratory Exam: Decreased Breath Sounds, NORMAL BREATHING PATTERN Additional comments: right chest tube intact, no crepitus, draining serosanginous - Cardiovascular Exam Cardiovascular Exam: +S1, +S2 - GI/Abdominal Exam GI & Abdominal Exam: Soft, Normal Bowel Sounds - Skin Skin Exam: Dry, Intact Assessment and Plan - Assessment and Plan (Free Text) Plan: 67 yr old male with pmh sif for 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 , lungs and bone admitted tot he ICU for mgmt after presenting to the ED with worsening SOB and hypoxic resp failure, sepsis and new onset chf , right lung white out and pleural effusion pt s/p thoracentesis with cardiac, renal,pul and oncology consultations resp failure- weaned off bipap, iv steriods, pul ecs noted on 02 with good o2 saturation pleural effusion cardiac vs malignant - s/p thoracentesis 1.9 L removed , pleural cytology pending now with ct guided right chest tube with good output - 130 ml in last 24 hrs per nursing staff sepsis/right lung pne- Iv antibiotic, ID recs noted 7 to 10 days IV antibiotics stage IV metastatic ca- decision on whether to proceed with broncial stenting and tumor debulking pending ( @[facility]?) pt and family to decide extent of interventions with current prognosis discuss with medical team - discussion to be had with pul and onc re: plan of care nd next steps per medical team. will continue to follow Nina Lyons
--- NOTE | 2018-03-19 11:57 | PN ---
DATE: 03/19/2018 PULMONARY PROGRESS NOTE REFERRING PHYSICIAN: Fred Sidhu MD SUBJECTIVE: The patient is lying in bed. Reports some discomfort to chest tube site. Reports cough and shortness of breath with some improvement. No headache, rhinitis, chest pain, abdominal pain, nausea, vomiting, diarrhea, leg pain or leg swelling reported. OBJECTIVE: GENERAL: No acute distress. VITAL SIGNS: Blood pressure 130/69, pulse 97, afebrile. HEENT: Moist mucous membranes. Crowded airway. NECK: Supple. No JVD. LUNGS: Decreased breath sounds on the right, few scattered rhonchi on the left. Chest tube to right side. CARDIOVASCULAR: S1 and S2 audible. ABDOMEN: Soft and nontender. No distention. No organomegaly. EXTREMITIES: No bilateral lower extremity edema. NEUROLOGIC: Awake, alert and verbal. Follows commands. MEDICATIONS: Reviewed. Mucomyst 4 mL inhalation twice a day, DuoNeb 3 mL inhalation every 2 hours p.r.n., Xanax 0.125 mg p.o. twice a day p.r.n., Tessalon Perles 100 mg three times a day, Pulmicort 0.5 mg every 12 hours, Cymbalta 60 mg daily, Lovenox 40 mg subcutaneously daily, gabapentin 300 mg three times a day, Robitussin 100 mg every 4 hours p.r.n., Xopenex 0.63 mg inhalation three times a day, Solu-Medrol 20 mg every 12 hours, Toprol 100 mg daily, oxycodone 20 mg every 12 hours, Protonix 40 mg in the morning and sodium chloride 0.9% 1000 mL at 30 mL per hour. LABORATORY DATA: Reviewed. WBC 15.5, RBC 4.3, hemoglobin 11.3, hematocrit 36.2, and platelets 124. PCO2 of 50, PO2 of 124, HCO3 of 30.3 and ABG pH 7.39. Sodium 135, potassium 5.1, chloride 101, carbon dioxide 30, anion gap 8, BUN 39, creatinine 0.9, GFR greater than 60, random glucose 106, calcium 7.7, phosphorus 3.1, magnesium 1.7, total bilirubin 1.0, AST 29, ALT 63, alkaline phosphatase 95, total protein 4.4, albumin 2.1, globulin 2.3, and albumin-globulin ratio 0.9. Chest x-ray report pending. IMPRESSION AND PLAN: History of non-small cell lung cancer treated with radiation and chemotherapy, pneumonia, hypertension, history of alcohol abuse, anxiety disorder, gastroesophageal reflux disease, pleural effusion, status post chest tube placement, chest tube care. We will followup with chest x-ray in the morning. We will do CT without contrast to followup on tumor and endobronchial region. Continue inhaled bronchodilators, steroids, gastric prophylaxis, deep venous thrombosis prophylaxis, continue antibiotic therapy, head of bed elevated at 45 degrees. This patient was seen and examined with Dr. Read. Discussed assessment and plan as described above. Thank you for this consult. We will follow with you. Mark Luke APN Fred Read MD
--- NOTE | 2018-03-19 13:18 | CT ---
Date of service: 03/19/2018 PROCEDURE: CT Chest without contrast HISTORY: follow up tumor/endobronchial lesion COMPARISON: 03/12/2018 CT thorax. Summary of findings on the comparison examination: There is complete atelectasis of the right lung with endobronchial obstruction. There is a large right pleural effusion. TECHNIQUE: Contiguous axial images were obtained through the chest without intravenous contrast enhancement. Sagittal and coronal reconstructions were performed. Radiation dose: Total exam DLP = 416.23 mGy-cm. This CT exam was performed using one or more of the following dose reduction techniques: Automated exposure control, adjustment of the mA and/or kV according to patient size, and/or use of iterative reconstruction technique. FINDINGS: LUNGS: Partial re-expansion of right lung. No discrete endobronchial lesion identified on the current study. The right mainstem bronchus, lobar and segmental bronchi centrally are patent but compressed or impressed upon by right hilar mass. These findings would be better differentiated with a contrast-enhanced study. MEDIASTINUM: Unremarkable thoracic aorta. No aneurysm. Normal sized heart. Main pulmonary artery unremarkable. No vascular congestion. Right hilar adenopathy inseparable from compressed lung. Venous access catheter in satisfactory position. Atherosclerotic calcification and mural plaque present. Findings are seen throughout the aorta which is non aneurysmal. PLEURA: Complex multiloculated hydro pneumothorax on the right. Pigtail catheter/chest tube noted in the pleural space. This appears to be in satisfactory position. Trace right pleural effusion. BONES: No fracture. No destructive lesion. UPPER ABDOMEN: Ill-defined masses in the right hepatic lobe near the dome of the diaphragm. Enlarged right adrenal gland. OTHER FINDINGS: None. IMPRESSION: Status post chest tube insertion right pleural space. Commensurate decrease in right pleural effusion. Multiloculated hydro pneumothorax. Improved aeration of the right lung. No evidence of complete obstruction of the segments of the right tracheobronchial tree. There is extrinsic impression, narrowing of central components of the bronchial tree on the right. This is difficult to separate from extensive adenopathy. 1, possibly several masses in the dome of the liver the largest 4 x 4.2 cm.
--- NOTE | 2018-03-19 13:22 | RAD ---
Date of service: 03/19/2018 HISTORY: Chest tube follow-up. COMPARISON: March 18, 2018. Single-view chest. March 19, 2018 CT thorax FINDINGS: LUNGS: No active pulmonary disease. PLEURA: Stable position of chest tube in the right pleural space. Stable complex hydropneumothorax better visualized on concurrent CT. CARDIOVASCULAR: Atherosclerotic calcifications identified primarily aortic arch. Venous access catheter in stable, satisfactory position. No radiographic findings to suggest acute or significant cardiovascular disease. OSSEOUS STRUCTURES: No significant abnormalities. VISUALIZED UPPER ABDOMEN: Normal. OTHER FINDINGS: None. IMPRESSION: No significant interval change compared to the prior examination(s).
--- NOTE | 2018-03-19 13:54 | CP.PCM.PN ---
<Neris Irwin - Last Filed: 03/19/18 13:45> Subjective - Date & Time of Evaluation Date of Evaluation: 03/19/18 Time of Evaluation: 10:05 - Subjective Subjective: Neris Irwin PGY1 Hospital Progress Note Patient seen and examined at bedside this morning. No acute events reported overnight. Offers no new complaints today but states he has been feeling down over the last week. Chest tube draining 130cc red fluid today. Objective - Vital Signs/Intake and Output Vital Signs (last 24 hours): Temp Pulse Resp BP Pulse Ox 98.7 F 95 H 20 112/70 65 L 03/19/18 12:14 03/19/18 12:14 03/19/18 12:14 03/19/18 12:14 03/18/18 14:00 Intake and Output: 03/19/18 03/19/18 06:59 18:59 Intake Total 210 Output Total 130 Balance 210 -130 - Medications Medications: Current Medications Acetylcysteine (Acetylcysteine 20%) 4 ml IH BIDRESP [facility] Last Admin: 03/19/18 08:30 Dose: 4 ml Albuterol/Ipratropium (Duoneb 3 Mg/0.5 Mg (3 Ml) Ud) 3 ml IH Q2H PRN PRN Reason: Shortness of Breath Last Admin: 03/12/18 07:42 Dose: 3 ml Alprazolam (Xanax) 0.125 mg PO BID PRN; Protocol PRN Reason: Anxiety Stop: 03/24/18 18:01 Last Admin: 03/19/18 11:36 Dose: 0.125 mg Benzonatate (Tessalon Perles) 100 mg PO TID DAVID Last Admin: 03/19/18 09:51 Dose: 100 mg Budesonide (Pulmicort Respules) 0.5 mg IH [id number] [facility] Last Admin: 03/19/18 08:32 Dose: 0.5 mg Duloxetine HCl (Cymbalta) 60 mg PO DAILY [facility] Last Admin: 03/19/18 09:51 Dose: 60 mg Enoxaparin Sodium (Lovenox) 40 mg SC DAILY [facility]; Protocol Last Admin: 03/19/18 09:54 Dose: 40 mg Gabapentin (Neurontin) 300 mg PO TID [facility]; Protocol Last Admin: 03/19/18 13:24 Dose: 300 mg Guaifenesin (Robitussin) 100 mg PO Q4H PRN PRN Reason: Cough Last Admin: 03/17/18 21:08 Dose: 100 mg Sodium Chloride (Sodium Chloride 0.9%) 1,000 mls @ 30 mls/hr IV .Q24H [facility] Last Admin: 03/18/18 05:14 Dose: 30 mls/hr Levalbuterol HCl (Xopenex) 0.63 mg IH TIDRESP [facility] Last Admin: 03/19/18 13:25 Dose: 0.63 mg Methylprednisolone (Solu-Medrol) 20 mg IVP Q12 [facility] Last Admin: 03/19/18 09:57 Dose: 20 mg Metoprolol Succinate (Toprol Xl) 100 mg PO DAILY [facility] Last Admin: 03/19/18 09:51 Dose: 100 mg Oxycodone HCl (Oxycontin Extended Release Tab) 20 mg PO Q12 [facility] Last Admin: 03/19/18 09:51 Dose: 20 mg Pantoprazole Sodium (Protonix Ec Tab) 40 mg PO ACB [facility] Last Admin: 03/19/18 08:28 Dose: Not Given - Labs Labs: 03/19/18 06:00 03/19/18 06:00 PT 16.2 SECONDS (9.4-12.5) H 03/11/18 20:55 INR 1.41 03/11/18 20:55 APTT 28.5 Seconds (25.1-36.5) 03/11/18 20:55 - Additional Findings Additional findings: - Constitutional Appears: Non-toxic, Cachectic - Head Exam Head Exam: ATRAUMATIC, NORMOCEPHALIC - Eye Exam Eye Exam: EOMI, Normal appearance - ENT Exam ENT Exam: Mucous Membranes Dry - Respiratory Exam Respiratory Exam: Decreased Breath Sounds (right lung field), Rales (left lung). Chest tube in place draining red fluid. No respiratory distress. - Cardiovascular Exam Cardiovascular Exam: Tachycardia, +S1, +S2 - GI/Abdominal Exam GI & Abdominal Exam: Soft, Normal Bowel Sounds - Extremities Exam Extremities Exam: Normal Inspection. absent: Calf Tenderness - Neurological Exam Neurological Exam: Alert, Awake, Oriented x3. moving all 4 extremities without difficulty. muscle strength in all 4 extremities is 5/5. 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 Patient was admitted to ICU for management and treatment of hypoxemic respiratory failure. Patient has recurrent pleural effusion, likely malignant. Plan: Right pleural effusion - improved -CT Chest today shows decrease in right pleural effusion, multiloculated hydropneumothorax, improved aeration of the right lung, multiple liver masses -CXR today shows no interval change -chest tube placed on 03/18/18, drained 130cc of serransanginous fluid today -cytology pending -s/p thoracentesis on 03/13/18 with 1.9L fluid removed -urine culture negative, blood culture negative for 5 days -completed doxy, merrem course. WBC is 15.5 today, afebrile. Will monitor -solumedrol 20 q12, pulmicort, mucomyst, xopenex, acetylcysteine -echo shows EF 53%, RVSP 61 -trops are indeterminate -IR, pulm, cardio consult Hx of stage 4 non small cell lung cancer -mets to the liver, lungs, bone -currently on immunotherapy -candidate for laser ablation of the right main stem with stent and tumor debu lking -patient/family to make decision in regards to degree of aggressive treatment -heme/onc on consult -psych on consult for depression Mild hyperkalemia - resolved -if not improved, will give kayexalate Tachycardia-resolved -continue home toprol XL 100mg Conjunctivitis - resolved -L eye > R eye -topical ciprofloxacin - completed PPX/Diet -lovenox protonix -HHD Patient seen and case discussed with attending, Dr. Sidhu <Fred Sidhu - Last Filed: 03/22/18 15:46> Objective - Vital Signs/Intake and Output Vital Signs (last 24 hours): Temp Pulse Resp BP Pulse Ox 98.1 F 102 H 18 136/83 95 03/22/18 12:00 03/22/18 12:00 03/22/18 12:00 03/22/18 12:00 03/22/18 05:36 Intake and Output: 03/22/18 03/22/18 06:59 18:59 Intake Total 360 Output Total 930 Balance -570 - Medications Medications: Current Medications Acetylcysteine (Acetylcysteine 20%) 4 ml IH BIDRESP [facility] Last Admin: 03/22/18 08:14 Dose: 4 ml Albuterol/Ipratropium (Duoneb 3 Mg/0.5 Mg (3 Ml) Ud) 3 ml IH Q2H PRN PRN Reason: Shortness of Breath Last Admin: 03/20/18 19:34 Dose: 3 ml Alprazolam (Xanax) 0.125 mg PO BID PRN; Protocol PRN Reason: Anxiety Stop: 03/24/18 18:01 Last Admin: 03/19/18 11:36 Dose: 0.125 mg Benzonatate (Tessalon Perles) 100 mg PO TID [facility] Last Admin: 03/22/18 14:13 Dose: 100 mg Budesonide (Pulmicort Respules) 0.5 mg IH [id number] [facility] Last Admin: 03/22/18 08:15 Dose: 0.5 mg Duloxetine HCl (Cymbalta) 60 mg PO DAILY [facility] Last Admin: 03/22/18 10:45 Dose: 60 mg Enoxaparin Sodium (Lovenox) 40 mg SC DAILY [facility]; Protocol Last Admin: 03/22/18 10:43 Dose: 40 mg Gabapentin (Neurontin) 300 mg PO TID [facility]; Protocol Last Admin: 03/22/18 14:13 Dose: 300 mg Guaifenesin (Robitussin) 100 mg PO Q4H PRN PRN Reason: Cough Last Admin: 03/20/18 21:09 Dose: 100 mg Sodium Chloride (Sodium Chloride 0.9%) 1,000 mls @ 60 mls/hr IV .[id number] [facility] Last Admin: 03/22/18 10:48 Dose: 60 mls/hr Levalbuterol HCl (Xopenex) 0.63 mg IH TIDRESP [facility] Last Admin: 03/22/18 14:22 Dose: 0.63 mg Methylprednisolone (Solu-Medrol) 20 mg IVP Q12 [facility] Last Admin: 03/22/18 10:43 Dose: 20 mg Metoprolol Succinate (Toprol Xl) 100 mg PO DAILY [facility] Last Admin: 03/22/18 10:47 Dose: 100 mg Morphine Sulfate (Morphine) 2 mg IVP Q4H PRN PRN Reason: Pain, severe (8-10) Last Admin: 03/21/18 21:58 Dose: 2 mg Nystatin (Nystatin Oral Susp) 5 ml PO QID [facility] Last Admin: 03/22/18 14:12 Dose: 5 ml Oxycodone HCl (Oxycontin Extended Release Tab) 20 mg PO Q12 [facility] Last Admin: 03/22/18 10:46 Dose: 20 mg Pantoprazole Sodium (Protonix Ec Tab) 40 mg PO ACB [facility] Last Admin: 03/22/18 08:59 Dose: 40 mg Polyethylene Glycol (Miralax) 17 gm PO BID [facility] Last Admin: 03/22/18 11:02 Dose: Not Given Tamsulosin HCl (Flomax) 0.4 mg PO DAILY [facility] Last Admin: 03/22/18 10:47 Dose: 0.4 mg - Labs Labs: 03/22/18 06:00 03/22/18 06:00 PT 16.2 SECONDS (9.4-12.5) H 03/11/18 20:55 INR 1.41 03/11/18 20:55 APTT 28.5 Seconds (25.1-36.5) 03/11/18 20:55 Attending/Attestation - Attestation I have personally seen and examined this patient.: Yes I have fully participated in the care of the patient.: Yes I have reviewed all pertinent clinical information, including history, physical exam and plan: Yes Notes (Text): 03/22/18 15:46 Medical record note made by the resident after discussion with my direction and input after the patient was personally seen and examined by me. I have reviewed the chart and agree that the record accurately reflects by personal performance of the history, physical exam, data review, and medical decision-making, in the course for the patient. I have also personally directed the plan of care. Management plan was discussed in detail with patient. Education was provided.
[2018-03-19] MEDS: Sodium Chloride 0.9% 1,000 ML IV SCH (17:49)
--- NOTE | 2018-03-19 21:43 | PN ---
DATE: 03/19/2018 ONCOLOGY PROGRESS NOTE SUBJECTIVE: The patient is lying in bed. Reports some discomfort at the chest tube site, otherwise, holding his own. Reports cough and shortness of breath with some improvement. No headaches. No chest pain. No abdominal pain, nausea, vomiting, diarrhea, leg pain, or leg swelling reported. No fevers. No chills. The patient's pain medicines were renewed last night. PHYSICAL EXAMINATION: GENERAL: The patient is in no acute distress. VITAL SIGNS: Stable. Blood pressure is 130/69, pulse is 97. The patient is afebrile. HEENT: Head is normocephalic, atraumatic. Conjunctivae are pale. Sclerae are anicteric. Pupils are equally reactive to light and accommodation. Examination of the oropharynx reveals no oropharyngeal lesions. Tongue is moist. No ulcerations are noted. NECK: Supple. There is no adenopathy. No jugular venous distention noted. LUNGS: Reveal decreased breath sounds on the right side with few scattered rhonchi on the left side. The patient has a chest tube on the right side, appears to be adequate as evidenced on the CAT scan of the chest. CARDIOVASCULAR SYSTEM: Reveals PMI to be in the 5th intercostal space inside the midclavicular line. S1 and S2 are normal. No gallop or murmur is heard. ABDOMEN: Soft, nontender. No rebound, rigidity, or guarding is noted. EXTREMITIES: Reveal no cyanosis, clubbing, or edema. NEUROLOGIC: Reveals higher functions to be normal. No focal deficits are noted. GENITOURINARY/RECTAL: Deferred. MEDICATIONS: Reviewed. The patient is on Mucomyst 4 mL inhaled twice a day, DuoNeb 3 mL inhaled every 2 hours p.r.n., Xanax 0.125 mg twice a day p.r.n., Tessalon Perles 100 mg 3 times a day, Pulmicort 0.5 mg every 12 hours, Cymbalta 60 mg daily, Lovenox 40 mg subcutaneous daily, gabapentin 300 mg 3 times a day, Robitussin 100 mg every 4 hours p.r.n., Xopenex 0.63 mg inhaled 3 times a day, Solu-Medrol 20 mg every 12 hours, Toprol 100 mg daily, oxycodone 20 mg p.o. every 12 hours, Protonix 40 mg in the morning, IV fluid at 30 mL an hour of normal saline. LABORATORY DATA: Reviewed, reveals a white count of 15,000, hemoglobin is 11.3, hematocrit 36.2, platelet count of 124,000. PCO2 is 50, PO2 is 124, bicarb is 30.3, ABG shows a pH of 7.39. Sodium is 135, K is 5.1, chloride is 101, CO2 is 30, anion gap is 8, BUN is 39, creatinine 0.9. GFR is greater than 60 with random sugar of 106. Total bili is 1, AST is 29, ALT is 63, alkaline phosphatase 95, total protein is 4.4, albumin 2.1, globulin 2.3, A/G ratio 0.9. CAT scan of the chest was reviewed and that reveals significant improvement on the CAT scan of the chest. The endobronchial density that was seen suggestive of an endobronchial lesion is no longer visualized. Right mainstem bronchus, lobar, and segmental bronchi essentially are patent, but compressed upon the right hilar mass. Of course, these could be better differentiated in a contrast-enhanced study. Mediastinum shows no aneurysm. There is right hilar adenopathy inseparable from the compressed lung. Venous catheter is in satisfactory position. The CAT scan of the chest and the upper abdomen are visualized with an undefined mass in the right hepatic lobe near the dome of the diaphragm with an enlarged right adrenal gland, both of which are compatible with metastatic disease. The patient is post RF ablation to the right liver several months ago. Assessment is improved aeration of the lungs post placement of the chest tube with hydropneumothorax, which hopefully would still improve. ASSESSMENT, NOTES, AND PLAN: The patient has metastatic stage IV non-small cell carcinoma of the lung, was admitted with significant pleural effusion, status post tapping and then status post insertion of a pleural catheter. Plan is to let the chest tube in for at least 2-3 days to see how much expansion the lung would have and then if the lung expands significantly, we can plan on putting a PleurX catheter in and send the patient home with a PleurX catheter. The patient's medications have been reviewed, and he is still on similar medicines except for the fact that his antibiotics have been discontinued at this time. We will continue to monitor the patient, and the next step would be to assess the patient for systemic therapy. Already spoken to the patient's about treatment plans and which direction we go from here. As far as treatment plan is concerned, one of the options would be assessing the patient for systemic therapy along with Keytruda, a drug combination such as gemcitabine, which he apparently did not have or a sioux-based regimen or in this patient along with Keytruda whether there would be a role for simultaneously administration of another immunotherapy drug, such as ipilimumab. The patient is receiving several other drugs, but Gemzar is one drug, is not seen; etoposide is another drug, is not seen, and so these are the options we have at this time. One of the other options would be to do a repeat biopsy of the lung lesion as tumors are constantly evolving. It has been sometime since the biopsy was obtained, getting a Blane-Cut biopsy of the lung lesion before he leaves, so we can send to [facility] for additional testing would be of value, so we can correct our treatments based on the findings. I will talk to the family and see how they want to do it and of course the patient if he wants to agree for another biopsy. Routine post-exam instructions have been given to the patient. We will follow the patient very carefully and make appropriate recommendations. Please make a note, this is a complex patient with multiple comorbid medical issues. Festus Vaughn MD
[2018-03-20 06:44] LABS: BASO # 0.01 K/mm3 (0.0-2.0); BASO % 0.1 % (0.0-3.0); EOS % 0.1 % (1.5-5.0); GRAN # 15.19 (1.4-6.5); GRAN % 88.3 % (50.0-68.0); HEMOGLOBIN 11.5 g/dL (14.0-18.0); LYMPH % 5.8 % (22.0-35.0); MEAN CELL VOLUME 84.3 fl (80.0-105.0); MONO % 5.7 % (1.0-6.0); RBC 4.26 10^6/uL (3.5-6.1); RED CELL DISTRIBUTION WIDTH 17.1 % (11.5-14.5); WHITE BLOOD COUNT 17.2 10^3/uL (4.5-11.0)
[2018-03-20 06:56] LABS: ALB/GLOB RATIO 0.9 (1.1-1.8); ALBUMIN 2.1 g/dL (3.0-4.8); ALT/SGPT 56 U/L (7-56); AST/SGOT 22 U/L (17-59); BLOOD UREA NITROGEN 41 mg/dL (7-21); CALCIUM 7.7 mg/dL (8.4-10.5); GFR NON-AFRICAN AMERICAN > 60
[2018-03-20] MEDS: Pantoprazole 40 mg EC Tab PO SCH (07:57)
[2018-03-20] MEDS: Sodium Chloride 0.9% 1,000 ML IV SCH (07:58)
[2018-03-20] MEDS: Levalbuterol 0.63 MG/3 ML Inhal Soln UD IH SCH ×3 (08:23→19:34)
[2018-03-20] MEDS: Budesonide 0.5 mg/2 ml Inhal Susp UD IH SCH (08:23)
[2018-03-20] MEDS: Acetylcysteine 20% Inhal Soln (4ml) IH SCH ×2 (08:23→19:34)
[2018-03-20] MEDS: oxyCODONE 20 mg ER Tab (oxyCONTIN) PO SCH ×2 (09:55→21:08)
[2018-03-20] MEDS: MethylPREDNISolone 40 mg Vial IVP SCH ×2 (09:55→21:09)
[2018-03-20] MEDS: Enoxaparin 40 mg Syringe SC SCH (09:55)
--- NOTE | 2018-03-20 10:28 | CP.PCM.APN ---
Subjective - Date & Time of Evaluation Date of Evaluation: 03/20/18 Time of Evaluation: 09:10 - Subjective Subjective: pt seen and bedside , he offers no complaints Review of Systems - Review of Systems All systems: reviewed and no additional remarkable complaints except Objective - Vital Signs/Intake and Output Vital Signs (last 24 hours): Temp Pulse Resp BP Pulse Ox 98.3 F 81 18 112/78 91 L 03/20/18 06:00 03/20/18 08:26 03/20/18 06:00 03/20/18 06:00 03/20/18 06:00 Intake and Output: 03/20/18 03/20/18 06:59 18:59 Intake Total 510 Output Total 1120 Balance -610 - Medications Medications: Current Medications Acetylcysteine (Acetylcysteine 20%) 4 ml IH BIDRESP [facility] Last Admin: 03/20/18 08:23 Dose: 4 ml Albuterol/Ipratropium (Duoneb 3 Mg/0.5 Mg (3 Ml) Ud) 3 ml IH Q2H PRN PRN Reason: Shortness of Breath Last Admin: 03/12/18 07:42 Dose: 3 ml Alprazolam (Xanax) 0.125 mg PO BID PRN; Protocol PRN Reason: Anxiety Stop: 03/24/18 18:01 Last Admin: 03/19/18 11:36 Dose: 0.125 mg Benzonatate (Tessalon Perles) 100 mg PO TID [facility] Last Admin: 03/20/18 09:55 Dose: 100 mg Budesonide (Pulmicort Respules) 0.5 mg IH [id number] [facility] Last Admin: 03/20/18 08:23 Dose: 0.5 mg Duloxetine HCl (Cymbalta) 60 mg PO DAILY [facility] Last Admin: 03/19/18 09:51 Dose: 60 mg Enoxaparin Sodium (Lovenox) 40 mg SC DAILY [facility]; Protocol Last Admin: 03/20/18 09:55 Dose: 40 mg Gabapentin (Neurontin) 300 mg PO TID [facility]; Protocol Last Admin: 03/19/18 17:53 Dose: 300 mg Guaifenesin (Robitussin) 100 mg PO Q4H PRN PRN Reason: Cough Last Admin: 03/17/18 21:08 Dose: 100 mg Sodium Chloride (Sodium Chloride 0.9%) 1,000 mls @ 30 mls/hr IV .Q24H [facility] Last Admin: 03/20/18 07:58 Dose: 30 mls/hr Levalbuterol HCl (Xopenex) 0.63 mg IH TIDRESP [facility] Last Admin: 03/20/18 08:23 Dose: 0.63 mg Methylprednisolone (Solu-Medrol) 20 mg IVP Q12 [facility] Last Admin: 03/20/18 09:55 Dose: 20 mg Metoprolol Succinate (Toprol Xl) 100 mg PO DAILY [facility] Last Admin: 03/19/18 09:51 Dose: 100 mg Morphine Sulfate (Morphine) 2 mg IVP Q4H PRN PRN Reason: Pain, severe (8-10) Nystatin (Nystatin Oral Susp) 5 ml PO QID [facility] Oxycodone HCl (Oxycontin Extended Release Tab) 20 mg PO Q12 [facility] Last Admin: 03/20/18 09:55 Dose: 20 mg Pantoprazole Sodium (Protonix Ec Tab) 40 mg PO ACB [facility] Last Admin: 03/20/18 07:57 Dose: Not Given - Labs Labs: 03/20/18 06:00 03/20/18 06:00 PT 16.2 SECONDS (9.4-12.5) H 03/11/18 20:55 INR 1.41 03/11/18 20:55 APTT 28.5 Seconds (25.1-36.5) 03/11/18 20:55 - Constitutional Appears: No Acute Distress, Chronically Ill - Head Exam Head Exam: NORMAL INSPECTION, NORMOCEPHALIC - Eye Exam Eye Exam: Normal appearance Pupil Exam: NORMAL ACCOMODATION - Respiratory Exam Respiratory Exam: Decreased Breath Sounds Additional comments: right chest tube with bloody drainage - Cardiovascular Exam Cardiovascular Exam: +S1, +S2 - GI/Abdominal Exam GI & Abdominal Exam: Soft - Extremities Exam Extremities Exam: Full ROM, Normal Capillary Refill - Neurological Exam Neurological Exam: Alert, Awake, Oriented x3 - Skin Skin Exam: Dry, Intact Assessment and Plan - Assessment and Plan (Free Text) Plan: 67 yr old male with pmh sif for stage Iv lung ca with mets to liver and bone admitted to the ICU for mgmt after presenting to the ED with worsening SOB and hypoxic resp failure, sepsis and new onset chf , right lung white out and pleural effusion pt s/p thoracentesis with cardiac, renal,pul and oncology consultations #resp failure- weaned off bipap, iv steriods, pul recs noted #right pleural effusion s/p thoracentesis 1.9 L removed , pleural cytology pending pt agreed to right chest tube insertion and had placed with good output 400 ml per Rn overnight #sepsis/right lung pne- Iv antibiotic, ID recs noted 7-10 days iv antibiotcs #stage IV metastatic ca- decision on whether to proceed with broncial stenting and tumor debulking pending ( @[facility]?) ?systemic treatment oncology note rev'd pt and family to decide extent of interventions with current prognosis discussed with medical team will continue to follow Nina Lyons BPCI/TIC - BPCIA/TIC Educated pt/family on BPCIA/CIR/Med to Bed Programs: Yes Flyers given, including [facility] Beneficiary letter: Yes Pt/family verbalized understanding & agreed to program: Yes
--- NOTE | 2018-03-20 10:39 | RAD ---
Date of service: 03/20/2018 HISTORY: chest tube COMPARISON: 03/19/2018 FINDINGS: LUNGS: There is a persistent severe right-sided pneumothorax. No significant change. Pigtail chest tube at the right lung base PLEURA: No significant pleural effusion identified, no pneumothorax apparent. CARDIOVASCULAR: No aortic atherosclerotic calcification present. Normal cardiac size. No pulmonary vascular congestion. OSSEOUS STRUCTURES: No significant abnormalities. VISUALIZED UPPER ABDOMEN: Normal. OTHER FINDINGS: None. IMPRESSION: There is a persistent severe right-sided pneumothorax. No significant change. Pigtail chest tube at the right lung base
[2018-03-20] MEDS: Morphine 2 mg/ml ISec IVP PRN (11:18)
--- NOTE | 2018-03-20 11:43 | PN ---
DATE: 03/20/2018 PULMONARY PROGRESS NOTE REFERRING PHYSICIAN: Fred Sidhu MD SUBJECTIVE: The patient is lying in bed. No overnight events reported. No acute distress. Reports some discomfort, chest tube site. Reports improvement in cough and shortness of breath. No headache, rhinitis, chest pain, abdominal pain, nausea, vomiting, diarrhea, leg pain or leg swelling reported. OBJECTIVE: GENERAL: No acute distress. VITAL SIGNS: Blood pressure 112/78, pulse 87, temperature 98.3 and oxygen saturation 91% on room air. HEENT: Moist mucous membrane. Crowded airway. NECK: Supple. No JVD. LUNGS: Decreased breath sounds on the right, few scattered rhonchi on the left. Chest tube on the right. CARDIOVASCULAR: S1 and S2, audible. ABDOMEN: Soft and nontender. No distention. No organomegaly. EXTREMITIES: No bilateral lower extremity edema. NEUROLOGIC: Awake, alert and verbal. Follows commands. MEDICATIONS: Reviewed. Mucomyst 4 mL inhalation twice a day, DuoNeb 3 mL inhalation every 2 hours p.r.n for shortness of breath, Xanax 0.125 mg twice a day p.r.n., Tessalon Perles 100 mg three times a day, Pulmicort 0.5 mg every 12 hours, Cymbalta 16 mg daily, Lovenox 40 mg subcutaneously daily, Neurontin 300 mg three times a day, Robitussin 100 mg every 4 hours p.r.n., Xopenex 0.63 mg inhalation 3 times a day, Solu-Medrol 20 mg every 12 hours, metoprolol succinate 100 mg daily, morphine sulfate 2 mg IV push every 4 hours p.r.n., Nystatin 5 mL p.o. 4 times a day, oxycodone 20 mg every 12 hours, Protonix 40 mg in the morning, sodium chloride 0.9% 1000 mL at 30 mL per hour. LABORATORY DATA: Reviewed. WBC 17.2, RBC 4.26, hemoglobin 11.5, hematocrit 35.9 and platelets 141. Sodium 136, potassium 4.9, chloride 104, carbon dioxide 30, anion gap 8, BUN 41, creatinine 0.9, GFR greater than 60, random glucose 104, calcium 7.7, phosphorus 3.8, magnesium 1.8, total bilirubin 1.2, AST 22, ALT 56, alkaline phosphatase 93, total protein 4.5, albumin 2.1, globulin 2.4 and albumin-globulin ratio 0.9. Blood culture final, no growth after 5 days. Chest x-ray shows persistent severe right-sided pneumothorax. No significant change, pigtail chest tube at the right lung base. 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 Followup with chest tube output. Continue with oncology followup. Depending on the amount of output from the chest tube, we will determine whether chest tube will be removed entirely or whether chest tube will be removed and PleurX catheter will be placed. Continue inhaled bronchodilators, steroids, gastric prophylaxis and deep venous thrombosis prophylaxis. Head of bed elevated at 45 degrees. This patient was seen and examined with Dr. Read. Discussed assessment and plan as described above. Thank you for this consult. We will follow with you. Mark Luke APN Fred Read MD
--- NOTE | 2018-03-20 11:59 | PN ---
DATE: 03/20/2018 SUBJECTIVE: The patient is seen earlier today in 260. No fevers, no chills. No nausea. PHYSICAL EXAMINATION: VITAL SIGNS: Temperature is 98, blood pressure is 112/70, respiratory rate of 18. HEENT: Unremarkable. NECK: Supple. LUNGS: Decreased breath sounds. HEART: Normal S1, S2. ABDOMEN: Soft, nontender. Review of the orders reveals the patient to be on no antibiotics. The patient is on Solu-Medrol and microbiology reveals the cultures are negative. LABORATORY DATA: White count is up to 17,200. Chemistries are noted and urinalysis is noted. Serology is urine for Legionella antigen is negative. ASSESSMENT AND PLAN: This is a 67-year-old male, who was seen earlier today in today in 260, was allergic to penicillin and azithromycin, status post thoracentesis, right sided, 1.9 liters removed. The patient is now extubated, had right-sided healthcare-associated pneumonia with complete opacification of right side with acute kidney injury in the setting of stage IV lung cancer with metastasis to the bone, liver with chronic obstructive lung disease, hypertension, currently off of antibiotics. The patient does have elevated leukocytosis; however, on Solu-Medrol, the patient is at risk for developing nosocomial infections. Chest x-rays from today shows a persistent severe right-sided pneumothorax with a pigtail chest tube at the right lung base. No other findings. The patient also had a CAT scan of the chest yesterday which revealed several masses in the dome of the liver and chest tube insertion in the right pleural space and multiloculated hydropneumothorax. Dr. Read's progress note is reviewed and states that the patient has a non-small cell lung cancer treated with radiation and chemotherapy, pneumonia, hypertension, history of alcohol abuse, anxiety and gastroesophageal reflux disease, and status post chest tube placement, chest tube care, and currently off of antibiotics. We will follow the patient with you. The patient is at very high risk of developing nosocomial infections. Edgard Mackey MD
[2018-03-20] MEDS: Albuterol-Ipratrop 3 mg / 0.5 (3 ml) UD IH PRN ×2 (12:28→19:34)
--- NOTE | 2018-03-20 12:53 | CP.PCM.PN ---
Subjective - Date & Time of Evaluation Date of Evaluation: 03/20/18 Time of Evaluation: 14:00 - Subjective Subjective: Alert, orient. Complains of weakness. Denies pain. Objective - Vital Signs/Intake and Output Vital Signs (last 24 hours): Temp Pulse Resp BP Pulse Ox 98.7 F 84 20 117/71 91 L 03/20/18 12:00 03/20/18 12:37 03/20/18 12:00 03/20/18 12:00 03/20/18 06:00 Intake and Output: 03/20/18 03/20/18 06:59 18:59 Intake Total 510 Output Total 1120 180 Balance -610 -180 - Medications Medications: Current Medications Acetylcysteine (Acetylcysteine 20%) 4 ml IH BIDRESP [facility] Last Admin: 03/20/18 08:23 Dose: 4 ml Albuterol/Ipratropium (Duoneb 3 Mg/0.5 Mg (3 Ml) Ud) 3 ml IH Q2H PRN PRN Reason: Shortness of Breath Last Admin: 03/20/18 12:28 Dose: 3 ml Alprazolam (Xanax) 0.125 mg PO BID PRN; Protocol PRN Reason: Anxiety Stop: 03/24/18 18:01 Last Admin: 03/19/18 11:36 Dose: 0.125 mg Benzonatate (Tessalon Perles) 100 mg PO TID [facility] Last Admin: 03/20/18 09:55 Dose: 100 mg Budesonide (Pulmicort Respules) 0.5 mg IH [id number] [facility] Last Admin: 03/20/18 08:23 Dose: 0.5 mg Duloxetine HCl (Cymbalta) 60 mg PO DAILY [facility] Last Admin: 03/19/18 09:51 Dose: 60 mg Enoxaparin Sodium (Lovenox) 40 mg SC DAILY [facility]; Protocol Last Admin: 03/20/18 09:55 Dose: 40 mg Gabapentin (Neurontin) 300 mg PO TID [facility]; Protocol Last Admin: 03/20/18 11:31 Dose: 300 mg Guaifenesin (Robitussin) 100 mg PO Q4H PRN PRN Reason: Cough Last Admin: 03/17/18 21:08 Dose: 100 mg Sodium Chloride (Sodium Chloride 0.9%) 1,000 mls @ 30 mls/hr IV .Q24H [facility] Last Admin: 03/20/18 07:58 Dose: 30 mls/hr Levalbuterol HCl (Xopenex) 0.63 mg IH TIDRESP [facility] Last Admin: 03/20/18 08:23 Dose: 0.63 mg Methylprednisolone (Solu-Medrol) 20 mg IVP Q12 [facility] Last Admin: 03/20/18 09:55 Dose: 20 mg Metoprolol Succinate (Toprol Xl) 100 mg PO DAILY [facility] Last Admin: 03/19/18 09:51 Dose: 100 mg Morphine Sulfate (Morphine) 2 mg IVP Q4H PRN PRN Reason: Pain, severe (8-10) Last Admin: 03/20/18 11:18 Dose: 2 mg Nystatin (Nystatin Oral Susp) 5 ml PO QID [facility] Oxycodone HCl (Oxycontin Extended Release Tab) 20 mg PO Q12 [facility] Last Admin: 03/20/18 09:55 Dose: 20 mg Pantoprazole Sodium (Protonix Ec Tab) 40 mg PO ACB [facility] Last Admin: 03/20/18 07:57 Dose: Not Given - Labs Labs: 03/20/18 06:00 03/20/18 06:00 PT 16.2 SECONDS (9.4-12.5) H 03/11/18 20:55 INR 1.41 03/11/18 20:55 APTT 28.5 Seconds (25.1-36.5) 03/11/18 20:55 - Constitutional Appears: Cachectic, Chronically Ill - Head Exam Head Exam: NORMOCEPHALIC - Eye Exam Eye Exam: Normal appearance, PERRL - ENT Exam ENT Exam: Mucous Membranes Moist - Neck Exam Neck Exam: Normal Inspection - Respiratory Exam Respiratory Exam: Decreased Breath Sounds Additional comments: roght chest tube draining sanguineous fluid - Cardiovascular Exam Cardiovascular Exam: REGULAR RHYTHM, +S1, +S2 - GI/Abdominal Exam GI & Abdominal Exam: Soft, Normal Bowel Sounds - Extremities Exam Extremities Exam: Normal Capillary Refill, Pedal Edema - Neurological Exam Neurological Exam: Alert, Oriented x3 - Skin Skin Exam: Dry, Pallor, Warm Assessment and Plan - Assessment and Plan (Free Text) Assessment: 67 year old male with history of lung cancer who is admitted with large right pleural effusion s/p thoracentisis and chest tube placement, sepsis,deconditioning. The patient is alert/oriented. He is not short of breath and states that his pain is controlled Daughter Venus at bedside. The patient has had multiple discussions with oncologist and is aware of his diagnosis and prognosis. Goals of care and advance care planning discussion ensued. The patient states he is willing to continue treatment of his disease. He understands that he can not receive treatment until he is medically cleared. Quality of life discussed. Efraín admits to feeling weak and fatigued. He understands the burdens of treatment. Option for hospice also discussed. Hospice services explained in detail, questions answered. Efraín does not want hospice care at this time and expressed his intention of continuing chemotherapy. Patients daughter Venus is willing to support him in whatever decision he makes. She states she and her live with the patient and will help with whatever he needs. Resuscitation wishes also discussed. The patient is leaning towards DNI, not DNR. He was not willing to commit to this decision today. Psychosocial support provided. Time spent with patient in goals of care and advance care planning, 30 minutes Plan: [place] of care and advance care planning Pulmonary: Continue nebulizers, steroids IR to evaluate for removal of chest tube and replace with PleurX catheter. NSCL cancer: Oncology following. Will continue treatment as an OP Morphine 20 mg ER BID.
[2018-03-20] MEDS: Nystatin 100,000 Units/ml Oral Susp 5 ml UD PO SCH ×3 (13:09→21:10)
[2018-03-20] MEDS: Metoprolol Succinate 100 mg XL Tab PO SCH (13:09)
[2018-03-20] MEDS ORDERED: Iodixanol 320 MG/ML 100 ML BOTTLE IV ONE (13:27)
[2018-03-20] MEDS ORDERED: Lidocaine 2% Inj (20ml) ONE (13:27)
[2018-03-20] MEDS ORDERED: Midazolam 2 MG/2 ML VIAL ONE (14:27)
--- NOTE | 2018-03-20 14:54 | CP.PCM.PN ---
<Neris Irwin - Last Filed: 03/20/18 14:50> Subjective - Date & Time of Evaluation Date of Evaluation: 03/20/18 Time of Evaluation: 10:00 - Subjective Subjective: Neris Irwin Y1 [facility] Progress Note Patient seen and examined at bedside this morning. No acute events reported overnight. Will give nystatin for oral thrush. Chest tube draining 5000cc of red fluid over last day. Plan for repositioning of chest tube. Objective - Vital Signs/Intake and Output Vital Signs (last 24 hours): Temp Pulse Resp BP Pulse Ox 98.7 F 84 20 117/71 91 L 03/20/18 12:00 03/20/18 12:37 03/20/18 12:00 03/20/18 12:00 03/20/18 06:00 Intake and Output: 03/20/18 03/20/18 06:59 18:59 Intake Total 510 Output Total 1120 180 Balance -610 -180 - Medications Medications: Current Medications Acetylcysteine (Acetylcysteine 20%) 4 ml IH BIDRESP [facility] Last Admin: 03/20/18 08:23 Dose: 4 ml Albuterol/Ipratropium (Duoneb 3 Mg/0.5 Mg (3 Ml) Ud) 3 ml IH Q2H PRN PRN Reason: Shortness of Breath Last Admin: 03/20/18 12:28 Dose: 3 ml Alprazolam (Xanax) 0.125 mg PO BID PRN; Protocol PRN Reason: Anxiety Stop: 03/24/18 18:01 Last Admin: 03/19/18 11:36 Dose: 0.125 mg Benzonatate (Tessalon Perles) 100 mg PO TID [facility] Last Admin: 03/20/18 13:09 Dose: Not Given Budesonide (Pulmicort Respules) 0.5 mg IH [id number] [facility] Last Admin: 03/20/18 08:23 Dose: 0.5 mg Duloxetine HCl (Cymbalta) 60 mg PO DAILY [facility] Last Admin: 03/20/18 13:09 Dose: Not Given Enoxaparin Sodium (Lovenox) 40 mg SC DAILY [facility]; Protocol Last Admin: 03/20/18 09:55 Dose: 40 mg Gabapentin (Neurontin) 300 mg PO TID [facility]; Protocol Last Admin: 03/20/18 13:09 Dose: Not Given Guaifenesin (Robitussin) 100 mg PO Q4H PRN PRN Reason: Cough Last Admin: 03/17/18 21:08 Dose: 100 mg Sodium Chloride (Sodium Chloride 0.9%) 1,000 mls @ 30 mls/hr IV .Q24H [facility] Last Admin: 03/20/18 07:58 Dose: 30 mls/hr Levalbuterol HCl (Xopenex) 0.63 mg IH TIDRESP [facility] Last Admin: 03/20/18 13:31 Dose: Not Given Methylprednisolone (Solu-Medrol) 20 mg IVP Q12 [facility] Last Admin: 03/20/18 09:55 Dose: 20 mg Metoprolol Succinate (Toprol Xl) 100 mg PO DAILY [facility] Last Admin: 03/20/18 13:09 Dose: Not Given Morphine Sulfate (Morphine) 2 mg IVP Q4H PRN PRN Reason: Pain, severe (8-10) Last Admin: 03/20/18 11:18 Dose: 2 mg Nystatin (Nystatin Oral Susp) 5 ml PO QID [facility] Last Admin: 03/20/18 13:09 Dose: Not Given Oxycodone HCl (Oxycontin Extended Release Tab) 20 mg PO Q12 [facility] Last Admin: 03/20/18 09:55 Dose: 20 mg Pantoprazole Sodium (Protonix Ec Tab) 40 mg PO ACB [facility] Last Admin: 03/20/18 07:57 Dose: Not Given - Labs Labs: 03/20/18 06:00 03/20/18 06:00 PT 16.2 SECONDS (9.4-12.5) H 03/11/18 20:55 INR 1.41 03/11/18 20:55 APTT 28.5 Seconds (25.1-36.5) 03/11/18 20:55 - Additional Findings Additional findings: - Constitutional Appears: Non-toxic, Cachectic - Head Exam Head Exam: ATRAUMATIC, NORMOCEPHALIC - Eye Exam Eye Exam: EOMI, Normal appearance - ENT Exam ENT Exam: Mucous Membranes Dry, white plaques in oral mucosa - Respiratory Exam Respiratory Exam: Decreased Breath Sounds (right lung field), Rales (left lung). Chest tube in place draining red fluid. No respiratory distress. - Cardiovascular Exam Cardiovascular Exam: regular rhyhtm, +S1, +S2 - GI/Abdominal Exam GI & Abdominal Exam: Soft, Normal Bowel Sounds - Extremities Exam Extremities Exam: Normal Inspection. absent: Calf Tenderness - Neurological Exam Neurological Exam: Alert, Awake, Oriented x3. moving all 4 extremities without difficulty. muscle strength in all 4 extremities is 5/5. 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 Patient was admitted to ICU for management and treatment of hypoxemic respiratory failure. Patient has recurrent pleural effusion, likely malignant. Plan: Right pleural effusion - improved -CT Chest 03/19 shows decrease in right pleural effusion, multiloculated hydropneumothorax, improved aeration of the right lung, multiple liver masses -CXR today shows persisent severe right sided pneumothorax. No significant change. -chest tube placed on 03/18/18, drained 500cc of serransanginous fluid over last day -plan for repositioning of chest tube -s/p thoracentesis on 03/13/18 with 1.9L fluid removed -urine culture negative, blood culture negative for 5 days -completed doxy, merrem course. WBC is 15.5 today, afebrile. Will monitor -solumedrol 20 q12, pulmicort, mucomyst, xopenex, acetylcysteine -echo shows EF 53%, RVSP 61 -trops are indeterminate -IR, pulm, cardio consult Hx of stage 4 non small cell lung cancer -mets to the liver, lungs, bone -currently on immunotherapy -given nystatin for oral thrush -candidate for laser ablation of the right main stem with stent and tumor debulking -patient/family to make decision in regards to degree of aggressive treatment -heme/onc on consult -psych on consult for depression Mild hyperkalemia - resolved -if not improved, will give kayexalate Tachycardia-resolved -continue home toprol XL 100mg Conjunctivitis - resolved -L eye > R eye -topical ciprofloxacin - completed PPX/Diet -lovenox protonix -HHD Patient seen and case discussed with attending, Dr. Sidhu <Fred Sidhu - Last Filed: 03/22/18 15:46> Objective - Vital Signs/Intake and Output Vital Signs (last 24 hours): Temp Pulse Resp BP Pulse Ox 98.1 F 102 H 18 136/83 95 03/22/18 12:00 03/22/18 12:00 03/22/18 12:00 03/22/18 12:00 03/22/18 05:36 Intake and Output: 03/22/18 03/22/18 06:59 18:59 Intake Total 360 Output Total 930 Balance -570 - Medications Medications: Current Medications Acetylcysteine (Acetylcysteine 20%) 4 ml IH BIDRESP [facility] Last Admin: 03/22/18 08:14 Dose: 4 ml Albuterol/Ipratropium (Duoneb 3 Mg/0.5 Mg (3 Ml) Ud) 3 ml IH Q2H PRN PRN Reason: Shortness of Breath Last Admin: 03/20/18 19:34 Dose: 3 ml Alprazolam (Xanax) 0.125 mg PO BID PRN; Protocol PRN Reason: Anxiety Stop: 03/24/18 18:01 Last Admin: 03/19/18 11:36 Dose: 0.125 mg Benzonatate (Tessalon Perles) 100 mg PO TID [facility] Last Admin: 03/22/18 14:13 Dose: 100 mg Budesonide (Pulmicort Respules) 0.5 mg IH [id number] [facility] Last Admin: 03/22/18 08:15 Dose: 0.5 mg Duloxetine HCl (Cymbalta) 60 mg PO DAILY [facility] Last Admin: 03/22/18 10:45 Dose: 60 mg Enoxaparin Sodium (Lovenox) 40 mg SC DAILY [facility]; Protocol Last Admin: 03/22/18 10:43 Dose: 40 mg Gabapentin (Neurontin) 300 mg PO TID [facility]; Protocol Last Admin: 03/22/18 14:13 Dose: 300 mg Guaifenesin (Robitussin) 100 mg PO Q4H PRN PRN Reason: Cough Last Admin: 03/20/18 21:09 Dose: 100 mg Sodium Chloride (Sodium Chloride 0.9%) 1,000 mls @ 60 mls/hr IV .[id number] [facility] Last Admin: 03/22/18 10:48 Dose: 60 mls/hr Levalbuterol HCl (Xopenex) 0.63 mg IH TIDRESP [facility] Last Admin: 03/22/18 14:22 Dose: 0.63 mg Methylprednisolone (Solu-Medrol) 20 mg IVP Q12 [facility] Last Admin: 03/22/18 10:43 Dose: 20 mg Metoprolol Succinate (Toprol Xl) 100 mg PO DAILY [facility] Last Admin: 03/22/18 10:47 Dose: 100 mg Morphine Sulfate (Morphine) 2 mg IVP Q4H PRN PRN Reason: Pain, severe (8-10) Last Admin: 03/21/18 21:58 Dose: 2 mg Nystatin (Nystatin Oral Susp) 5 ml PO QID [facility] Last Admin: 03/22/18 14:12 Dose: 5 ml Oxycodone HCl (Oxycontin Extended Release Tab) 20 mg PO Q12 [facility] Last Admin: 03/22/18 10:46 Dose: 20 mg Pantoprazole Sodium (Protonix Ec Tab) 40 mg PO ACB [facility] Last Admin: 03/22/18 08:59 Dose: 40 mg Polyethylene Glycol (Miralax) 17 gm PO BID [facility] Last Admin: 03/22/18 11:02 Dose: Not Given Tamsulosin HCl (Flomax) 0.4 mg PO DAILY [facility] Last Admin: 03/22/18 10:47 Dose: 0.4 mg - Labs Labs: 03/22/18 06:00 03/22/18 06:00 PT 16.2 SECONDS (9.4-12.5) H 03/11/18 20:55 INR 1.41 03/11/18 20:55 APTT 28.5 Seconds (25.1-36.5) 03/11/18 20:55 Attending/Attestation - Attestation I have personally seen and examined this patient.: Yes I have fully participated in the care of the patient.: Yes I have reviewed all pertinent clinical information, including history, physical exam and plan: Yes Notes (Text): 03/22/18 15:46 Medical record note made by the resident after discussion with my direction and input after the patient was personally seen and examined by me. I have reviewed the chart and agree that the record accurately reflects by personal performance of the history, physical exam, data review, and medical decision-making, in the course for the patient. I have also personally directed the plan of care.
--- NOTE | 2018-03-20 20:58 | CON ---
DATE: 03/20/2018 HISTORY OF PRESENT ILLNESS: In short, the patient is a 67-year-old male with multiple medical problems including stage IV lung cancer on a monotherapy. The patient was admitted on the medical side for shortness of breath. The patient is in the hospital since 03/11/2018. The patient presented to be depressed to the medical team that is why this administrative underwriter got involved into the patient's care. The patient was seen and examined today. The patient presented to be alert, pleasant, cooperative. The patient reported that he feels depressed, hopeless and helpless, the patient reported that he feels very weak, and he sleeps whole day long. The patient adamantly denied thoughts of harming himself or others. Denied intent or plan. The patient denied any psychotic symptoms, the patient denied history of mental illness, the patient denied any problem to fall asleep and to stay asleep. PHYSICAL EXAMINATION: VITAL SIGNS: Stable. Temperature 98.7, pulse is 83, blood pressure 123/69, respirations 26, and oxygen saturation is 100. MEDICATIONS: Reviewed and are acetylcysteine, DuoNeb, Xanax 0.125 mg twice a day as needed, benzonatate, Pulmicort, Cymbalta 60 mg daily, Lovenox, Neurontin, Robitussin, Solu-Medrol, Toprol, morphine, nystatin, oxycodone, Protonix, sodium chloride. LABORATORY DATA: Reviewed. The patient has leukocytosis. Coagulation reviewed. Chemistry reviewed. Urinalysis reviewed. Serology reviewed. Microbiology reviewed. Reports reviewed. Discussed with the medical team and resident. The patient never verbalized thoughts of harming himself or others. The patient was not psychotic and not aggressive or agitated. MENTAL STATUS EXAMINATION: The patient presented to be alert, somewhat withdrawn. Mood described as depressed and hopeless. Affect was constricted, but reactive. Mood, congruent. Thought process seems to be coherent and goal directed. Thought content, the patient denied visual, auditory, or tactile hallucinations. Denied paranoid ideation. The patient denied thoughts of harming himself or others. Denied intent or plan. Insight and judgment seemed to be fair. Impulses are well controlled. IMPRESSION: Most likely the patient is in acceptance phase of grief and rule out adjustment disorder. The patient most likely has mood disorder due to general medical condition, as this administrative underwriter mentioned the patient has stage IV lung cancer, on monotherapy, and it is understandable for the patient that he has very poor prognosis. PLAN: The patient is on Cymbalta 60 mg daily, Xanax. The patient complained that he is feeling weak and sleeps all the time. This administrative underwriter will not implement any of the medications, but will talk to the patient tomorrow to have better sense, how we can help the patient. Emotional support and empathic listening provided. Should you have any questions give me a call back. Thank you very much for letting me participate in the care. Nicole Mi MD MTDRochelle
[2018-03-20] MEDS: guaiFENesin 100 mg/5 ml Syrup UD PO PRN (21:09)
--- NOTE | 2018-03-20 23:34 | PN ---
DATE: 03/20/2018 ONCOLOGY PROGRESS NOTE LOCATION: The patient is in room 260, bed 2. SUBJECTIVE: The patient is lying in bed. No overnight events noted. No acute distress. He reports some discomfort at the chest tube site and reports some improvement in the cough and shortness of breath. No headaches, rhinitis, chest pain, abdominal pain, nausea, vomiting, diarrhea, leg pain, or leg swelling reported. The patient had gone earlier today down to the Vascular lab, where they repositioned the chest tube and put a larger tube in, and the plan was to see if the lungs would fully expand before putting the PleurX catheter in. That was the goal at this time for reinserting a large-bore catheter, so all the fluid would drain out. The patient had some discomfort from the insertion of the tube, but has been getting morphine 2 mg IV every 4 hours p.r.n. and that seems to be helping him. OBJECTIVE: GENERAL: The patient is in no acute distress. VITAL SIGNS: Stable. Blood pressure is 112/78, pulse is 87, T-max is 98.3, O2 sat is 91% on room air. HEENT: Head is normocephalic, atraumatic. Conjunctivae are pale. No oropharyngeal lesions are noted. NECK: Supple. There is no adenopathy. No jugular venous distention noted. LUNGS: Reveal decreased breath sounds on the right side and few scattered rhonchi on the left. Chest tube is in the right side, which is a large-bore catheter now. CARDIOVASCULAR SYSTEM: Reveals S1 and S2 to be normal. No gallop or murmur is heard. ABDOMEN: Soft, nontender. There is no evidence of any distention. No organomegaly. EXTREMITIES: Reveal no edema of the lower extremities. The patient has slight swelling of the left upper extremity, where the site of the port is compared to the right upper extremity. NEUROLOGIC: Reveals higher functions to be normal. No focal deficits are noted. GENITOURINARY/RECTAL: Deferred. MEDICATIONS: Reviewed. Mucomyst 4 mL inhaled twice a day, DuoNeb 3 mL inhaled every 2 hours, Xanax 0.125 mg p.o. b.i.d., Tessalon Perles 100 mg p.o. 3 times a day, Pulmicort 0.5 mg every 12 hours, Cymbalta 60 mg daily, Lovenox 40 mg subcutaneous daily, Neurontin 300 mg t.i.d., Robitussin 100 mg every 4 hours p.r.n., Xopenex 0.63 mg inhalation 3 times a day, Solu-Medrol 20 mg IV every 12 hours, metoprolol succinate 100 mg daily, morphine sulfate 2 mg IV push every 4 hours, nystatin 5 mL p.o. 4 times a day, oxycodone 20 mg every 12 hours, Protonix 40 mg in the morning, sodium chloride 30 mL an hour. LABORATORY DATA: The patient's labs were reviewed, and they revealed the following: White count is 17.2, hemoglobin 11.5, hematocrit 35.9, platelet count of 141,000. Chemistries revealed electrolytes to be normal. BUN is 41, creatinine 0.8, total protein is 4.5, and an albumin of 2.1. AST and ALT are within normal limits. Chest x-ray shows the following: It shows there is persistent severe right-sided pneumothorax, no significant change, pigtail within the right lung base. ASSESSMENT, NOTES, AND PLAN: The patient has stage IV metastatic non-small cell carcinoma of the lung, currently on treatments directed towards his respiratory issues. CAT scan of the chest shows decrease in the pleural effusion with multiloculated hydropneumothorax with improved aeration on the right lung, with a new lesion in the dome of the diaphragm in the level, per say. The chest tube has been repositioned, so that we will see if the lung can expand further over the next 3 days. Chest x-ray has been ordered daily. Blood cultures and urine cultures have been negative for 5 days. The patient completed course of doxycycline and Merrem. White count is still slightly elevated, which may be related to the steroids, which are being followed. Echocardiogram shows an ejection fraction of 53%, which is reasonable. Troponins are indeterminate. We discussed with the patient and his and the care plan diet supervisor, Litzy Hahn, for palliative care. The patient still wants aggressive care, but he agrees for do not intubate. He still wants us to be aggressive with his treatment. We are still considering immunotherapy plus or minus chemotherapy. Still considering for the patient to undergo PleurX catheter. The patient is a candidate for laser ablation of any endobronchial lesion, though the current CAT scan shows no significant endoluminal disease; most of it is extraluminal disease that is pressing on the bronchus. The hyperkalemia appears to be resolved. The patient still has some crusting of the eye, and the patient has completed the topical ciprofloxacin; may have to continue it for few more days. We will discuss with the primary medical team. In the meantime, I had a lengthy discussion with Laura, his , and the patient regarding goals of care and what they need to do. Pain control is very important for the patient and once the PleurX catheter is in, he wants to be looking to go home in his own surroundings, where he can still be in control of his circumstances. He will then consider systemic therapy with either immunotherapy plus or minus some form of systemic chemotherapy, given the fact he still has persistent disease. We reviewed the list of all the medicines that he is on. He will still be a candidate for few choice drugs that he has not been exposed to. Time spent with the patient is greater than 80 minutes. Please make a note, this is a complex patient with multiple comorbid medical issues. Festus Vaughn MD
[2018-03-21] MEDS: Morphine 2 mg/ml ISec IVP PRN ×2 (05:31→21:58)
[2018-03-21 06:47] LABS: BASO # 0.01 K/mm3 (0.0-2.0); GRAN # 17.63 (1.4-6.5); GRAN % 87.6 % (50.0-68.0); HEMOGLOBIN 11.6 g/dL (14.0-18.0); LYMPH % 4.9 % (22.0-35.0); MEAN CELL VOLUME 85.1 fl (80.0-105.0); MEAN CORPUSCULAR HEMOGLOBIN 26.6 pg (25.0-35.0); MEAN CORPUSCULAR HGB CONC 31.3 g/dl (31.0-37.0); MEAN PLATELET VOLUME 11.8 fl (7.0-11.0); MONO # 1.5 (0.1-0.6); MONO % 7.5 % (1.0-6.0); PLATELET COUNT 178 10^3/uL (120.0-450.0); RBC 4.36 10^6/uL (3.5-6.1); RED CELL DISTRIBUTION WIDTH 17.2 % (11.5-14.5); WHITE BLOOD COUNT 20.1 10^3/uL (4.5-11.0)
[2018-03-21 06:58] LABS: ALB/GLOB RATIO 0.9 (1.1-1.8); ALBUMIN 2.2 g/dL (3.0-4.8); ALT/SGPT 51 U/L (7-56); AST/SGOT 24 U/L (17-59); BLOOD UREA NITROGEN 45 mg/dL (7-21); CALCIUM 7.9 mg/dL (8.4-10.5); GFR NON-AFRICAN AMERICAN > 60
[2018-03-21] MEDS: Sodium Chloride 0.9% 1,000 ML IV SCH ×2 (06:59→07:01)
[2018-03-21] MEDS: Levalbuterol 0.63 MG/3 ML Inhal Soln UD IH SCH ×3 (07:54→20:20)
[2018-03-21] MEDS: Acetylcysteine 20% Inhal Soln (4ml) IH SCH ×2 (07:54→20:20)
[2018-03-21] MEDS: Budesonide 0.5 mg/2 ml Inhal Susp UD IH SCH ×2 (07:57→20:20)
[2018-03-21 08:03] LABS: LYMPHOCYTE 2 % (22.0-35.0); MONOCYTE 2 % (1.0-6.0); NEUTROPHIL 96 % (50.0-70.0); PLATELET ESTIMATE NORMAL (NORMAL)
--- NOTE | 2018-03-21 09:44 | RAD ---
Date of service: 03/21/2018 HISTORY: change rt chest tube COMPARISON: 03/20/2018 TECHNIQUE: Chest PA and lateral FINDINGS: LUNGS: The right-sided chest tube has been repositioned and can be seen posterior medially. There is no change in the severe right-sided pneumothorax PLEURA: As above CARDIOVASCULAR: No aortic atherosclerotic calcification present. Normal cardiac size. No pulmonary vascular congestion. OSSEOUS STRUCTURES: No significant abnormalities. VISUALIZED UPPER ABDOMEN: Normal. OTHER FINDINGS: None. IMPRESSION: The right-sided chest tube has been repositioned and can be seen posterior medially. There is no change in the severe right-sided pneumothorax
--- NOTE | 2018-03-21 10:55 | CP.PCM.APN ---
Subjective - Date & Time of Evaluation Date of Evaluation: 03/21/18 Time of Evaluation: 10:30 - Subjective Subjective: pt seen laying in bed, pt in NAD ,pt with O2 off, refused when offered. pt attempting to void in urinal pt s/p chest tube adjustment yesterday per nursing staff 1100 from chest tube in past 24 hr Review of Systems - Review of Systems Review of Systems: pt did not answer when questioned Objective - Vital Signs/Intake and Output Vital Signs (last 24 hours): Temp Pulse Resp BP Pulse Ox 97.3 F L 90 20 115/74 99 03/21/18 06:00 03/21/18 06:00 03/21/18 06:00 03/21/18 06:00 03/20/18 16:36 Intake and Output: 03/21/18 03/21/18 06:59 18:59 Intake Total 360 Output Total 920 Balance -560 - Medications Medications: Current Medications Acetylcysteine (Acetylcysteine 20%) 4 ml IH BIDRESP [facility] Last Admin: 03/21/18 07:54 Dose: 4 ml Albuterol/Ipratropium (Duoneb 3 Mg/0.5 Mg (3 Ml) Ud) 3 ml IH Q2H PRN PRN Reason: Shortness of Breath Last Admin: 03/20/18 19:34 Dose: 3 ml Alprazolam (Xanax) 0.125 mg PO BID PRN; Protocol PRN Reason: Anxiety Stop: 03/24/18 18:01 Last Admin: 03/19/18 11:36 Dose: 0.125 mg Benzonatate (Tessalon Perles) 100 mg PO TID [facility] Last Admin: 03/20/18 17:49 Dose: Not Given Budesonide (Pulmicort Respules) 0.5 mg IH [id number] [facility] Last Admin: 03/21/18 07:57 Dose: 0.5 mg Duloxetine HCl (Cymbalta) 60 mg PO DAILY [facility] Last Admin: 03/20/18 13:09 Dose: Not Given Enoxaparin Sodium (Lovenox) 40 mg SC DAILY [facility]; Protocol Last Admin: 03/20/18 09:55 Dose: 40 mg Gabapentin (Neurontin) 300 mg PO TID [facility]; Protocol Last Admin: 03/20/18 17:48 Dose: Not Given Guaifenesin (Robitussin) 100 mg PO Q4H PRN PRN Reason: Cough Last Admin: 03/20/18 21:09 Dose: 100 mg Sodium Chloride (Sodium Chloride 0.9%) 1,000 mls @ 30 mls/hr IV .Q24H [facility] Last Admin: 03/21/18 07:01 Dose: Not Given Levalbuterol HCl (Xopenex) 0.63 mg IH TIDRESP [facility] Last Admin: 03/21/18 07:54 Dose: 0.63 mg Methylprednisolone (Solu-Medrol) 20 mg IVP Q12 [facility] Last Admin: 03/20/18 21:09 Dose: 20 mg Metoprolol Succinate (Toprol Xl) 100 mg PO DAILY [facility] Last Admin: 03/20/18 13:09 Dose: Not Given Morphine Sulfate (Morphine) 2 mg IVP Q4H PRN PRN Reason: Pain, severe (8-10) Last Admin: 03/21/18 05:31 Dose: 2 mg Nystatin (Nystatin Oral Susp) 5 ml PO QID [facility] Last Admin: 03/20/18 21:10 Dose: 5 ml Oxycodone HCl (Oxycontin Extended Release Tab) 20 mg PO Q12 [facility] Last Admin: 03/20/18 21:08 Dose: 20 mg Pantoprazole Sodium (Protonix Ec Tab) 40 mg PO ACB [facility] Last Admin: 03/20/18 07:57 Dose: Not Given Tamsulosin HCl (Flomax) 0.4 mg PO DAILY [facility] - Labs Labs: 03/21/18 06:00 03/21/18 06:00 PT 16.2 SECONDS (9.4-12.5) H 03/11/18 20:55 INR 1.41 03/11/18 20:55 APTT 28.5 Seconds (25.1-36.5) 03/11/18 20:55 - Constitutional Appears: No Acute Distress, Unkempt, Chronically Ill - Head Exam Head Exam: NORMAL INSPECTION, NORMOCEPHALIC - Eye Exam Eye Exam: Normal appearance Pupil Exam: NORMAL ACCOMODATION - ENT Exam ENT Exam: Normal Exam - Neck Exam Neck Exam: Normal Inspection - Respiratory Exam Respiratory Exam: Decreased Breath Sounds, NORMAL BREATHING PATTERN Additional comments: right chest tube catheter in place - Cardiovascular Exam Cardiovascular Exam: +S1, +S2 - GI/Abdominal Exam GI & Abdominal Exam: Normal Bowel Sounds - Psychiatric Exam Psychiatric exam: Flat Affect - Skin Skin Exam: Dry, Intact Assessment and Plan - Assessment and Plan (Free Text) Plan: Impressions Chest X-Ray 03/21/18 08:00 IMPRESSION: The right-sided chest tube has been repositioned and can be seen posterior medially. There is no change in the severe right-sided pneumothorax All Active Problems Lung cancer (Acute) Pneumonia (Acute) Sepsis (Acute) 67 yr old male with pmh sif for stage Iv lung ca with mets to liver and bone admitted to the ICU for mgmt after presenting to the ED with worsening SOB and hypoxic resp failure, sepsis and new onset chf , right lung white out and pleural effusion pt s/p thoracentesis with cardiac, renal,pul and oncology consultations #resp failure- weaned off bipap, iv steriods, pul recs noted #right pleural effusion s/p thoracentesis 1.9 L removed , right chest tube with output 1100 ml per Rn overnight chest xray findings noted of right sided pneumothorax - no change monitor output of chest tube ? convert to pleurax cath when output stable/ right lung re-expands serial cxrs #sepsis/right lung pne- Iv antibiotic, ID recs noted 7-10 days iv antibiotcs persistent leukocytosis #stage IV metastatic ca- decision on whether to proceed with broncial stenting and tumor debulking pending ( @[facility]?) ?systemic treatment oncology note rev'd and recommendations noted pt and family to decide extent of interventions with current prognosis discussed with medical team ? urinary retention 175 ml output so far continue i/o pt on Flomax regimen IVF at [facility] discuss with RN will continue to follow clinically Nina Lyons BPCI/TIC - BPCIA/TIC Educated pt/family on BPCIA/CIR/Med to Bed Programs: Yes Flyers given, including [facility] Beneficiary letter: Yes Pt/family verbalized understanding & agreed to program: Yes
[2018-03-21] MEDS: Enoxaparin 40 mg Syringe SC SCH (11:37)
[2018-03-21] MEDS: MethylPREDNISolone 40 mg Vial IVP SCH ×2 (11:37→21:17)
[2018-03-21] MEDS: Pantoprazole 40 mg EC Tab PO SCH ×3 (11:38→17:11)
[2018-03-21] MEDS: Nystatin 100,000 Units/ml Oral Susp 5 ml UD PO SCH ×5 (11:38→21:17)
[2018-03-21] MEDS: Metoprolol Succinate 100 mg XL Tab PO SCH ×2 (11:38→13:44)
--- NOTE | 2018-03-21 12:52 | CP.PCM.PN ---
<Neris Irwin - Last Filed: 03/21/18 12:47> Subjective - Date & Time of Evaluation Date of Evaluation: 03/21/18 Time of Evaluation: 09:45 - Subjective Subjective: Neris Irwin Y1 Hospital Progress Note Patient seen and examined at bedside this morning. No acute events reported overnight. Patient did not void overnight, refusing straight cath at this time. Started on flomax. CXR improved from yesterday. Offers no other complaints today. Objective - Vital Signs/Intake and Output Vital Signs (last 24 hours): Temp Pulse Resp BP Pulse Ox 97.2 F L 92 H 18 132/79 99 03/21/18 12:00 03/21/18 12:00 03/21/18 12:00 03/21/18 12:00 03/20/18 16:36 Intake and Output: 03/21/18 03/21/18 06:59 18:59 Intake Total 360 Output Total 920 Balance -560 - Medications Medications: Current Medications Acetylcysteine (Acetylcysteine 20%) 4 ml IH BIDRESP [facility] Last Admin: 03/21/18 07:54 Dose: 4 ml Albuterol/Ipratropium (Duoneb 3 Mg/0.5 Mg (3 Ml) Ud) 3 ml IH Q2H PRN PRN Reason: Shortness of Breath Last Admin: 03/20/18 19:34 Dose: 3 ml Alprazolam (Xanax) 0.125 mg PO BID PRN; Protocol PRN Reason: Anxiety Stop: 03/24/18 18:01 Last Admin: 03/19/18 11:36 Dose: 0.125 mg Benzonatate (Tessalon Perles) 100 mg PO TID [facility] Last Admin: 03/21/18 11:39 Dose: 100 mg Budesonide (Pulmicort Respules) 0.5 mg IH [id number] [facility] Last Admin: 03/21/18 07:57 Dose: 0.5 mg Duloxetine HCl (Cymbalta) 60 mg PO DAILY [facility] Last Admin: 03/21/18 11:38 Dose: 60 mg Enoxaparin Sodium (Lovenox) 40 mg SC DAILY [facility]; Protocol Last Admin: 03/21/18 11:37 Dose: 40 mg Gabapentin (Neurontin) 300 mg PO TID [facility]; Protocol Last Admin: 03/21/18 11:38 Dose: 300 mg Guaifenesin (Robitussin) 100 mg PO Q4H PRN PRN Reason: Cough Last Admin: 03/20/18 21:09 Dose: 100 mg Sodium Chloride (Sodium Chloride 0.9%) 1,000 mls @ 30 mls/hr IV .Q24H [facility] Last Admin: 03/21/18 07:01 Dose: Not Given Levalbuterol HCl (Xopenex) 0.63 mg IH TIDRESP [facility] Last Admin: 03/21/18 07:54 Dose: 0.63 mg Methylprednisolone (Solu-Medrol) 20 mg IVP Q12 [facility] Last Admin: 03/21/18 11:37 Dose: 20 mg Metoprolol Succinate (Toprol Xl) 100 mg PO DAILY [facility] Last Admin: 03/21/18 11:38 Dose: 100 mg Morphine Sulfate (Morphine) 2 mg IVP Q4H PRN PRN Reason: Pain, severe (8-10) Last Admin: 03/21/18 05:31 Dose: 2 mg Nystatin (Nystatin Oral Susp) 5 ml PO QID [facility] Last Admin: 03/21/18 11:38 Dose: 5 ml Oxycodone HCl (Oxycontin Extended Release Tab) 20 mg PO Q12 [facility] Last Admin: 03/21/18 11:39 Dose: 20 mg Pantoprazole Sodium (Protonix Ec Tab) 40 mg PO ACB [facility] Last Admin: 03/21/18 11:38 Dose: 40 mg Tamsulosin HCl (Flomax) 0.4 mg PO DAILY [facility] Last Admin: 03/21/18 11:39 Dose: 0.4 mg - Labs Labs: 03/21/18 06:00 03/21/18 06:00 PT 16.2 SECONDS (9.4-12.5) H 03/11/18 20:55 INR 1.41 03/11/18 20:55 APTT 28.5 Seconds (25.1-36.5) 03/11/18 20:55 - Additional Findings Additional findings: - Constitutional Appears: Non-toxic, Cachectic - Head Exam Head Exam: ATRAUMATIC, NORMOCEPHALIC - Eye Exam Eye Exam: EOMI, Normal appearance - ENT Exam ENT Exam: Mucous Membranes Dry, white plaques in oral mucosa improved from yesterday - Respiratory Exam Respiratory Exam: Decreased Breath Sounds (right lung field), Rales (left lung). Chest tube in place draining red fluid. No respiratory distress. - Cardiovascular Exam Cardiovascular Exam: regular rhyhtm, +S1, +S2 - GI/Abdominal Exam GI & Abdominal Exam: Soft, Normal Bowel Sounds - Extremities Exam Extremities Exam: Normal Inspection. absent: Calf Tenderness - Neurological Exam Neurological Exam: Alert, Awake, Oriented x3. moving all 4 extremities without difficulty. muscle strength in all 4 extremities is 5/5. 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 Patient was admitted to ICU for management and treatment of hypoxemic respiratory failure. Patient has recurrent pleural effusion, likely malignant. Plan: Right pleural effusion - improved -CT Chest 03/19 shows decrease in right pleural effusion, multiloculated hydropneumothorax, improved aeration of the right lung, multiple liver masses -CXR today shows improved right pleural effusion -chest tube placed on 03/18/18, drained 1100cc of serransanginous fluid today -per pulmonology, will have pleurx placed -urine culture negative, blood culture negative for 5 days -completed doxy, merrem course. WBC is 15.5 today, afebrile. Will monitor -solumedrol 20 q12, pulmicort, mucomyst, xopenex, acetylcysteine -echo shows EF 53%, RVSP 61 -trops are indeterminate -IR, pulm, cardio consult Urinary retention -refusing straight cath and borja -bladder scan showed 334cc -started on flomax Hx of stage 4 non small cell lung cancer -mets to the liver, lungs, bone -currently on immunotherapy -given nystatin for oral thrush- improved today -candidate for laser ablation of the right main stem with stent and tumor debulking -patient/family to make decision in regards to degree of aggressive treatment -heme/onc on consult -psych on consult for depression Mild hyperkalemia - resolved -if not improved, will give kayexalate Tachycardia-resolved -continue home toprol XL 100mg Conjunctivitis - resolved -L eye > R eye -topical ciprofloxacin - completed PPX/Diet -lovenox protonix -HHD Patient seen and case discussed with attending, Dr. Sidhu <Fred Sidhu - Last Filed: 03/22/18 15:45> Objective - Vital Signs/Intake and Output Vital Signs (last 24 hours): Temp Pulse Resp BP Pulse Ox 98.1 F 102 H 18 136/83 95 03/22/18 12:00 03/22/18 12:00 03/22/18 12:00 03/22/18 12:00 03/22/18 05:36 Intake and Output: 03/22/18 03/22/18 06:59 18:59 Intake Total 360 Output Total 930 Balance -570 - Medications Medications: Current Medications Acetylcysteine (Acetylcysteine 20%) 4 ml IH BIDRESP [facility] Last Admin: 03/22/18 08:14 Dose: 4 ml Albuterol/Ipratropium (Duoneb 3 Mg/0.5 Mg (3 Ml) Ud) 3 ml IH Q2H PRN PRN Reason: Shortness of Breath Last Admin: 03/20/18 19:34 Dose: 3 ml Alprazolam (Xanax) 0.125 mg PO BID PRN; Protocol PRN Reason: Anxiety Stop: 03/24/18 18:01 Last Admin: 03/19/18 11:36 Dose: 0.125 mg Benzonatate (Tessalon Perles) 100 mg PO TID [facility] Last Admin: 03/22/18 14:13 Dose: 100 mg Budesonide (Pulmicort Respules) 0.5 mg IH [id number] [facility] Last Admin: 03/22/18 08:15 Dose: 0.5 mg Duloxetine HCl (Cymbalta) 60 mg PO DAILY [facility] Last Admin: 03/22/18 10:45 Dose: 60 mg Enoxaparin Sodium (Lovenox) 40 mg SC DAILY [facility]; Protocol Last Admin: 03/22/18 10:43 Dose: 40 mg Gabapentin (Neurontin) 300 mg PO TID [facility]; Protocol Last Admin: 03/22/18 14:13 Dose: 300 mg Guaifenesin (Robitussin) 100 mg PO Q4H PRN PRN Reason: Cough Last Admin: 03/20/18 21:09 Dose: 100 mg Sodium Chloride (Sodium Chloride 0.9%) 1,000 mls @ 60 mls/hr IV .[id number] [facility] Last Admin: 03/22/18 10:48 Dose: 60 mls/hr Levalbuterol HCl (Xopenex) 0.63 mg IH TIDRESP [facility] Last Admin: 03/22/18 14:22 Dose: 0.63 mg Methylprednisolone (Solu-Medrol) 20 mg IVP Q12 [facility] Last Admin: 03/22/18 10:43 Dose: 20 mg Metoprolol Succinate (Toprol Xl) 100 mg PO DAILY [facility] Last Admin: 03/22/18 10:47 Dose: 100 mg Morphine Sulfate (Morphine) 2 mg IVP Q4H PRN PRN Reason: Pain, severe (8-10) Last Admin: 03/21/18 21:58 Dose: 2 mg Nystatin (Nystatin Oral Susp) 5 ml PO QID [facility] Last Admin: 03/22/18 14:12 Dose: 5 ml Oxycodone HCl (Oxycontin Extended Release Tab) 20 mg PO Q12 [facility] Last Admin: 03/22/18 10:46 Dose: 20 mg Pantoprazole Sodium (Protonix Ec Tab) 40 mg PO ACB [facility] Last Admin: 03/22/18 08:59 Dose: 40 mg Polyethylene Glycol (Miralax) 17 gm PO BID [facility] Last Admin: 03/22/18 11:02 Dose: Not Given Tamsulosin HCl (Flomax) 0.4 mg PO DAILY [facility] Last Admin: 03/22/18 10:47 Dose: 0.4 mg - Labs Labs: 03/22/18 06:00 03/22/18 06:00 PT 16.2 SECONDS (9.4-12.5) H 03/11/18 20:55 INR 1.41 03/11/18 20:55 APTT 28.5 Seconds (25.1-36.5) 03/11/18 20:55 Attending/Attestation - Attestation I have personally seen and examined this patient.: Yes I have fully participated in the care of the patient.: Yes I have reviewed all pertinent clinical information, including history, physical exam and plan: Yes Notes (Text): 03/22/18 15:45 Medical record note made by the resident after discussion with my direction and input after the patient was personally seen and examined by me. I have reviewed the chart and agree that the record accurately reflects by personal performance of the history, physical exam, data review, and medical decision-making, in the course for the patient. I have also personally directed the plan of care.
--- NOTE | 2018-03-21 13:20 | PN ---
DATE: 03/21/2018 PULMONARY PROGRESS NOTE REFERRING PHYSICIAN: Fred Sidhu MD SUBJECTIVE: The patient is lying in bed, noted with urinary retention. The patient attempted to void in urinal, but unable to void. Denies abdominal discomfort. The patient is status post chest tube adjustment yesterday. Per nursing staff 1100 mL from the chest tube noted in the last 24 hours. OBJECTIVE: GENERAL: No acute distress. VITAL SIGNS: Blood pressure 115/74, pulse 88 and temperature 97.3. HEENT: No lesions. Dry mucous membranes. NECK: Supple. No JVD. LUNGS: Decreased breath sounds on the right, few scattered rhonchi on the left. Chest tube in place on the right. CARDIOVASCULAR: S1 and S2 audible. ABDOMEN: Soft and nontender. No distention. No organomegaly. EXTREMITIES: No bilateral lower extremity edema. NEUROLOGIC: Awake, alert and verbal. Follows commands. MEDICATIONS: Reviewed. Mucomyst 4 mL inhalation twice a day, DuoNeb 3 mL inhalation every 2 hours p.r.n, Xanax 0.125 mg twice a day p.r.n., Tessalon Perles 100 mg 3 times a day, Pulmicort 0.5 mg every 12 hours, Cymbalta 60 mg daily, Lovenox 40 mg subcutaneous daily, Neurontin 300 mg three times a day, Robitussin 100 mg every 4 hours p.r.n., Xopenex 0.63 mg inhalation 3 times a day, Solu-Medrol 20 mg every 12 hours, metoprolol succinate 100 mg p.o. daily, morphine sulfate 2 mg every 4 hours p.r.n., nystatin oral suspension 5 mL 4 times a day, oxycodone 20 mg every 12 hours, Protonix 40 mg in the morning, sodium chloride 0.9% 1000 mL at 30 mL per hour and Flomax 0.4 mg p.o. daily. LABORATORY DATA: Reviewed. WBC 20.1, RBC 4.36, hemoglobin 11.6, hematocrit 37.1 and platelets 170. Sodium 137, potassium 5.1, chloride 105, carbon dioxide 28, anion gap 9, BUN 45, creatinine 1.1, GFR greater than 60, random glucose 106, calcium 7.9, phosphorus 4.2, magnesium 1.9, total bilirubin 1.1, AST 24, ALT 51, alkaline phosphatase 105, total protein 4.6, albumin 2.2, globulin 2.4 and albumin-globulin ratio 0.9. Chest x-ray; right-sided chest tube has been repositioned, posterior medially. There is no change in the severe right-sided pneumothorax. 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 Continue to monitor chest tube output. Oncology followup. The patient will have PleurX catheter placed after chest tube is removed considering large volume currently being removed from the chest tube. Continue inhaled bronchodilators, steroids, gastric prophylaxis and deep venous thrombosis prophylaxis, head of bed elevated at [address] order for bladder scan to be done if greater than 250 then straight catheter. This patient was seen and examined with Dr. Read. Discussed assessment and plan as described above. Thank you for this consult and we will follow with you. Mark uLke APN Fred Read MD [place]
[2018-03-21] MEDS: oxyCODONE 20 mg ER Tab (oxyCONTIN) PO SCH ×2 (13:42→21:17)
--- NOTE | 2018-03-21 13:57 | CP.PCM.PN ---
<Maxim Barfield - Last Filed: 03/21/18 13:54> Subjective - Date & Time of Evaluation Date of Evaluation: 03/21/18 Time of Evaluation: 07:00 - Subjective Subjective: ID Progress Note Patient seen and examined at bedside. Patient states he is very tired. Denies chest pain, shortness of breath, nausea, vomiting, fever, chills. Objective - Vital Signs/Intake and Output Vital Signs (last 24 hours): Temp Pulse Resp BP Pulse Ox 97.2 F L 92 H 18 132/79 99 03/21/18 12:00 03/21/18 12:00 03/21/18 12:00 03/21/18 12:00 03/20/18 16:36 Intake and Output: 03/21/18 03/21/18 06:59 18:59 Intake Total 360 Output Total 920 Balance -560 - Medications Medications: Current Medications Acetylcysteine (Acetylcysteine 20%) 4 ml IH BIDRESP [facility] Last Admin: 03/21/18 07:54 Dose: 4 ml Albuterol/Ipratropium (Duoneb 3 Mg/0.5 Mg (3 Ml) Ud) 3 ml IH Q2H PRN PRN Reason: Shortness of Breath Last Admin: 03/20/18 19:34 Dose: 3 ml Alprazolam (Xanax) 0.125 mg PO BID PRN; Protocol PRN Reason: Anxiety Stop: 03/24/18 18:01 Last Admin: 03/19/18 11:36 Dose: 0.125 mg Benzonatate (Tessalon Perles) 100 mg PO TID [facility] Last Admin: 03/21/18 13:44 Dose: Not Given Budesonide (Pulmicort Respules) 0.5 mg IH [id number] [facility] Last Admin: 03/21/18 07:57 Dose: 0.5 mg Duloxetine HCl (Cymbalta) 60 mg PO DAILY [facility] Last Admin: 03/21/18 13:43 Dose: Not Given Enoxaparin Sodium (Lovenox) 40 mg SC DAILY [facility]; Protocol Last Admin: 03/21/18 11:37 Dose: 40 mg Gabapentin (Neurontin) 300 mg PO TID [facility]; Protocol Last Admin: 03/21/18 13:44 Dose: Not Given Guaifenesin (Robitussin) 100 mg PO Q4H PRN PRN Reason: Cough Last Admin: 03/20/18 21:09 Dose: 100 mg Sodium Chloride (Sodium Chloride 0.9%) 1,000 mls @ 30 mls/hr IV .Q24H [facility] Last Admin: 03/21/18 07:01 Dose: Not Given Levalbuterol HCl (Xopenex) 0.63 mg IH TIDRESP [facility] Last Admin: 03/21/18 13:28 Dose: Not Given Methylprednisolone (Solu-Medrol) 20 mg IVP Q12 [facility] Last Admin: 03/21/18 11:37 Dose: 20 mg Metoprolol Succinate (Toprol Xl) 100 mg PO DAILY [facility] Last Admin: 03/21/18 13:44 Dose: Not Given Morphine Sulfate (Morphine) 2 mg IVP Q4H PRN PRN Reason: Pain, severe (8-10) Last Admin: 03/21/18 05:31 Dose: 2 mg Nystatin (Nystatin Oral Susp) 5 ml PO QID [facility] Last Admin: 03/21/18 13:44 Dose: Not Given Oxycodone HCl (Oxycontin Extended Release Tab) 20 mg PO Q12 [facility] Last Admin: 03/21/18 13:42 Dose: 20 mg Pantoprazole Sodium (Protonix Ec Tab) 40 mg PO ACB [facility] Last Admin: 03/21/18 13:44 Dose: Not Given Tamsulosin HCl (Flomax) 0.4 mg PO DAILY [facility] Last Admin: 03/21/18 13:43 Dose: Not Given - Labs Labs: 03/21/18 06:00 03/21/18 06:00 PT 16.2 SECONDS (9.4-12.5) H 03/11/18 20:55 INR 1.41 03/11/18 20:55 APTT 28.5 Seconds (25.1-36.5) 03/11/18 20:55 - Constitutional Appears: Non-toxic, No Acute Distress - Head Exam Head Exam: ATRAUMATIC, NORMAL INSPECTION, NORMOCEPHALIC - ENT Exam ENT Exam: Mucous Membranes Moist - Respiratory Exam Respiratory Exam: Decreased Breath Sounds (Right side), NORMAL BREATHING PATTERN. absent: Rales, Rhonchi, Wheezes - Cardiovascular Exam Cardiovascular Exam: RRR, +S1, +S2 - GI/Abdominal Exam GI & Abdominal Exam: Soft, Normal Bowel Sounds. absent: Tenderness - Extremities Exam Extremities Exam: Normal Inspection. absent: Pedal Edema - Neurological Exam Neurological Exam: Alert, Awake, Oriented x3 - Psychiatric Exam Psychiatric exam: Normal Affect, Normal Mood - Skin Skin Exam: Intact, Normal Color, Warm Assessment and Plan - Assessment and Plan (Free Text) Plan: Right sided hospital acquired pneumonia S/p right chest tube placement S/p right-sided thoracentesis Hx of stage IV lung cancer with mets to bone and liver Hx of COPD Hx of HTN Hx of Tobacco use Hx of Alcohol use Plan S/p Doxycycline and Merrem Continue to monitor off of antibiotics Blood and urine cultures negative Chest tube in place, draining Follow up with Oncology and Pulmonology Continue current medical management Lico, PGY-3 <Dominic Jay S - Last Filed: 03/21/18 15:46> Objective - Vital Signs/Intake and Output Vital Signs (last 24 hours): Temp Pulse Resp BP Pulse Ox 97.2 F L 92 H 18 132/79 99 03/21/18 12:00 03/21/18 12:00 03/21/18 12:00 03/21/18 12:00 03/20/18 16:36 Intake and Output: 03/21/18 03/21/18 06:59 18:59 Intake Total 360 Output Total 920 Balance -560 - Medications Medications: Current Medications Acetylcysteine (Acetylcysteine 20%) 4 ml IH BIDRESP [facility] Last Admin: 03/21/18 07:54 Dose: 4 ml Albuterol/Ipratropium (Duoneb 3 Mg/0.5 Mg (3 Ml) Ud) 3 ml IH Q2H PRN PRN Reason: Shortness of Breath Last Admin: 03/20/18 19:34 Dose: 3 ml Alprazolam (Xanax) 0.125 mg PO BID PRN; Protocol PRN Reason: Anxiety Stop: 03/24/18 18:01 Last Admin: 03/19/18 11:36 Dose: 0.125 mg Benzonatate (Tessalon Perles) 100 mg PO TID [facility] Last Admin: 03/21/18 13:44 Dose: Not Given Budesonide (Pulmicort Respules) 0.5 mg IH [id number] [facility] Last Admin: 03/21/18 07:57 Dose: 0.5 mg Duloxetine HCl (Cymbalta) 60 mg PO DAILY [facility] Last Admin: 03/21/18 13:43 Dose: Not Given Enoxaparin Sodium (Lovenox) 40 mg SC DAILY [facility]; Protocol Last Admin: 03/21/18 11:37 Dose: 40 mg Gabapentin (Neurontin) 300 mg PO TID [facility]; Protocol Last Admin: 03/21/18 13:44 Dose: Not Given Guaifenesin (Robitussin) 100 mg PO Q4H PRN PRN Reason: Cough Last Admin: 03/20/18 21:09 Dose: 100 mg Sodium Chloride (Sodium Chloride 0.9%) 1,000 mls @ 30 mls/hr IV .Q24H [facility] Last Admin: 03/21/18 07:01 Dose: Not Given Levalbuterol HCl (Xopenex) 0.63 mg IH TIDRESP [facility] Last Admin: 03/21/18 13:28 Dose: Not Given Methylprednisolone (Solu-Medrol) 20 mg IVP Q12 [facility] Last Admin: 03/21/18 11:37 Dose: 20 mg Metoprolol Succinate (Toprol Xl) 100 mg PO DAILY [facility] Last Admin: 03/21/18 13:44 Dose: Not Given Morphine Sulfate (Morphine) 2 mg IVP Q4H PRN PRN Reason: Pain, severe (8-10) Last Admin: 03/21/18 05:31 Dose: 2 mg Nystatin (Nystatin Oral Susp) 5 ml PO QID [facility] Last Admin: 03/21/18 13:44 Dose: Not Given Oxycodone HCl (Oxycontin Extended Release Tab) 20 mg PO Q12 [facility] Last Admin: 03/21/18 13:42 Dose: 20 mg Pantoprazole Sodium (Protonix Ec Tab) 40 mg PO ACB [facility] Last Admin: 03/21/18 13:44 Dose: Not Given Tamsulosin HCl (Flomax) 0.4 mg PO DAILY [facility] Last Admin: 03/21/18 13:43 Dose: Not Given - Labs Labs: 03/21/18 06:00 03/21/18 06:00 PT 16.2 SECONDS (9.4-12.5) H 03/11/18 20:55 INR 1.41 03/11/18 20:55 APTT 28.5 Seconds (25.1-36.5) 03/11/18 20:55 Assessment and Plan - Assessment and Plan (Free Text) Plan: Infectious diseases Attending Physician Attestation Patient seen and examined, discussed with medical physiologist. I have reviewed the patient's history of present illness, past medical, social, personal and family histories, pertinent physical exam findings, course so far in this hospital admission, pertinent laboratory and imaging results. I agree with the above findings, assessment and plan. In addition, continue to monitor off antibiotics - patient is S/P treatment for right sided HAP. Also S/P right chest tube placement and it has been removed. Overall prognosis is poor. WBC count elevation may be due to cancer but will trend.
--- NOTE | 2018-03-21 18:07 | PN ---
DATE: 03/21/2018 SUBJECTIVE: The patient was followed up today, but the patient did not have a good day today. The patient reported that he feels very weak and the patient refused to talk to this filing writer. The patient has multiple medical issues; right-sided hospital-acquired pneumonia, status post right chest tube placement, status post right-sided thoracocentesis. The patient has stage IV lung cancer with mets to bone and liver, COPD, hypertension. This filing writer got involved into the patient care because of depressive symptoms. The patient was initially seen yesterday and today for followup. The patient refused to talk to this filing writer because the patient complained of feeling weak and tired. OBJECTIVE: VITAL SIGNS: Stable. Temperature 97.2, pulse 92, blood pressure 132/79, respirations 18, oxygen saturation is 99%. MEDICATIONS: Reviewed. The patient is on Xanax 0.125 mg twice a day. The patient has tendency of refusing to take medications due to depression and tiredness. As per nursing staff, the patient is very hard to deal with because the patient is depressed and refuses to take medications. LABORATORY DATA: Labs reviewed. The patient has leukocytosis 20.1 today. Chemistry reviewed. Urinalysis reviewed. Serology reviewed. Microbiology: Urine, no growth. Blood, no growth. MENTAL STATUS EXAM: The patient refused to talk to this filing writer, but the patient appears to be depressed. IMPRESSION: Rule out mood disorder due to general medical condition, rule out adjustment disorder with depressed and anxious mood. Rule out major depressive disorder. PLAN: Advance directives needs to be discussed with the patient and the patient's family. This filing writer cannot make miracle. The patient has a lot of medical issues which affects the patient's mental status as well as depression. Majority of antidepressants will take more than 4-6 weeks to reach maximum effect. This filing writer is not sure about the prognosis for this patient. Medical team need to discuss with the family about future plans. The patient needs to be involved. The patient does not want to take any benzodiazepines or sleeping medication, because the patient reported that he is tired and sleeping all the time. At this point, this filing writer has very limited options. Supportive therapy was provided, but the patient was not receptive. We will ask Dr. Trimble to follow up on this patient over the weekend. Should they have any questions give me a call back. Thank you very much for letting me participate in the care of your patient. Nicole Mi MD
--- NOTE | 2018-03-21 18:12 | VASCULAR ---
Date of service: 03/20/2018 PROCEDURE: Right chest tube repositioning and change HISTORY: Advanced right lung CA. Recently placed right pigtail chest tube. Incomplete expansion. Reposition chest tube. COMPARISON: TECHNIQUE: The relative risks and indications of the procedure were explained the patient consent obtained. Patient placed supine on the angiography table in the right chest tube prepped and draped usual sterile fashion. Conscious sedation monitoring were provided throughout the procedure by a nurse. A 0.035 glidewire was advanced through the chest tube and used to bracket the loculations present in the mid chest. The guidewire was advanced posteriorly and superiorly. The old chest tube was removed. A new larger 14 [place]ian right chest tube was advanced to the right apex. The catheter was flushed and secured. The patient tolerated the procedure well. FINDINGS: IMPRESSION: Repositioning and change of right pigtail chest tube as described above
--- NOTE | 2018-03-21 20:21 | PN ---
DATE: 03/21/2018 This is [facility] [place] [facility] visit on the telemetry floor. For Dr. Vaughn. SUBJECTIVE: The patient is a 67-year-old male seen lying awake in bed, admitted for stage IV metastatic [id number] carcinoma of the lung with the patient known to have pleural effusion with the patient now recommended to have PleurX catheter, the patient refusing at present. He is otherwise being followed by pulmonary unix consultant Dr. Read, Dr. Mi of Psychiatry, Dr. Jay of infectious disease unix consultant along with Dr. Garsia, Cardiology. OBJECTIVE/PHYSICAL EXAMINATION: VITAL SIGNS: Temperature 97.2, pulse 92, respirations 18, blood pressure 132/79, pulse oximetry 99%. HEENT: Unremarkable. NECK: Supple. HEART: Regular rate. LUNGS: Decreased breath sounds on the right. Chest tube noted. ABDOMEN: Soft. EXTREMITIES: No edema. SKIN: Warm and dry. NEUROLOGIC: Awake and alert. DIAGNOSTIC AND LABORATORY DATA: The patient did have a chest x-ray done earlier today. It showed right-sided chest tube is repositioned and can be seen posteromedially, no change in severe right-sided pneumothorax. The patient's labs were done. White blood cell count of 20.1,hemoglobin of 11.6, hematocrit of 37.1, platelet count of 178,000. Metabolic panel showing a potassium of 5.1, BUN of 45, creatinine of 1.1, calcium of 7.9, total protein 4.6. ASSESSMENT: For this patient is that of metastatic stage IV [id number] carcinoma of the lung with pleural effusion, status post thoracentesis with pneumothorax, chest tube insertion, history of hypertension, history of alcohol abuse, anxiety, gastroesophageal reflux disease, chronic obstructive pulmonary disease. PLAN: For this patient after consultation with Dr. Vaughn and Dr. Read is to recommend a PleurX catheter; however, the patient refuses it at present. We will continue his present medical regimen with consult with Dr. Mi of Psychiatry appreciated. The patient is also now on Flomax with recommendations for bladder scan with the patient refusing this at present. We will monitor clinically with labs. This is a complex patient with a comprehensive medically necessary and appropriate visit carried out in excess of 40 minutes. Rocky MD [facility] # [id number]
[2018-03-22 06:34] LABS: BASO # 0.01 K/mm3 (0.0-2.0); BASO % 0.1 % (0.0-3.0); GRAN # 16.16 (1.4-6.5); HEMOGLOBIN 11.2 g/dL (14.0-18.0); LYMPH # 1.4 (1.2-3.4); LYMPH % 7.9 % (22.0-35.0); MEAN CELL VOLUME 84.1 fl (80.0-105.0); MEAN CORPUSCULAR HEMOGLOBIN 26.5 pg (25.0-35.0); MEAN CORPUSCULAR HGB CONC 31.5 g/dl (31.0-37.0); MEAN PLATELET VOLUME 11.4 fl (7.0-11.0); MONO # 0.7 (0.1-0.6); RBC 4.22 10^6/uL (3.5-6.1); RED CELL DISTRIBUTION WIDTH 17.5 % (11.5-14.5); WHITE BLOOD COUNT 18.3 10^3/uL (4.5-11.0)
[2018-03-22 06:52] LABS: ALBUMIN 2.2 g/dL (3.0-4.8); ALT/SGPT 44 U/L (7-56); AST/SGOT 17 U/L (17-59); BLOOD UREA NITROGEN 53 mg/dL (7-21); CALCIUM 8.1 mg/dL (8.4-10.5); GFR NON-AFRICAN AMERICAN > 60
[2018-03-22] MEDS: Acetylcysteine 20% Inhal Soln (4ml) IH SCH ×2 (08:14→19:20)
[2018-03-22] MEDS: Levalbuterol 0.63 MG/3 ML Inhal Soln UD IH SCH ×4 (08:15→19:21)
[2018-03-22] MEDS: Budesonide 0.5 mg/2 ml Inhal Susp UD IH SCH ×2 (08:15→19:20)
[2018-03-22] MEDS: Sodium Chloride 0.9% 1,000 ML IV SCH ×2 (08:58→10:48)
[2018-03-22] MEDS: Pantoprazole 40 mg EC Tab PO SCH (08:59)
--- NOTE | 2018-03-22 09:51 | CP.PCM.PCO ---
Physician Communication Note - Physician Communication Note Physician Communication Note: Patient elects to be DNI, confirmed today with medical team
[2018-03-22] MEDS: MethylPREDNISolone 40 mg Vial IVP SCH ×2 (10:43→22:56)
[2018-03-22] MEDS: Enoxaparin 40 mg Syringe SC SCH (10:43)
[2018-03-22] MEDS: POLYETHYLENE GLYCOL 3350 17 GM/Dose PACKET PO SCH ×3 (10:43→17:47)
[2018-03-22] MEDS: Nystatin 100,000 Units/ml Oral Susp 5 ml UD PO SCH ×4 (10:45→22:55)
[2018-03-22] MEDS: oxyCODONE 20 mg ER Tab (oxyCONTIN) PO SCH ×2 (10:46→22:57)
[2018-03-22] MEDS: Metoprolol Succinate 100 mg XL Tab PO SCH (10:47)
--- NOTE | 2018-03-22 11:34 | CP.PCM.PN ---
<Neris Irwin - Last Filed: 03/22/18 11:29> Subjective - Date & Time of Evaluation Date of Evaluation: 03/22/18 Time of Evaluation: 08:00 - Subjective Subjective: Neris Iwrin PGY1 Hospital Progress Note Patient seen and examined at bedside this morning. No acute events reported overnight. Patient has improved voiding today, continuing to refuse straight cath. Awaiting pleurx catheter placement. Offers no new complaints today. Elects to remain full code at this time. Objective - Vital Signs/Intake and Output Vital Signs (last 24 hours): Temp Pulse Resp BP Pulse Ox 98.2 F 98 H 20 127/76 95 03/22/18 05:36 03/22/18 10:47 03/22/18 05:36 03/22/18 10:47 03/22/18 05:36 Intake and Output: 03/22/18 03/22/18 06:59 18:59 Intake Total 360 Output Total 930 Balance -570 - Medications Medications: Current Medications Acetylcysteine (Acetylcysteine 20%) 4 ml IH BIDRESP [facility] Last Admin: 03/22/18 08:14 Dose: 4 ml Albuterol/Ipratropium (Duoneb 3 Mg/0.5 Mg (3 Ml) Ud) 3 ml IH Q2H PRN PRN Reason: Shortness of Breath Last Admin: 03/20/18 19:34 Dose: 3 ml Alprazolam (Xanax) 0.125 mg PO BID PRN; Protocol PRN Reason: Anxiety Stop: 03/24/18 18:01 Last Admin: 03/19/18 11:36 Dose: 0.125 mg Benzonatate (Tessalon Perles) 100 mg PO TID [facility] Last Admin: 03/22/18 10:45 Dose: 100 mg Budesonide (Pulmicort Respules) 0.5 mg IH [id number] [facility] Last Admin: 03/22/18 08:15 Dose: 0.5 mg Duloxetine HCl (Cymbalta) 60 mg PO DAILY [facility] Last Admin: 03/22/18 10:45 Dose: 60 mg Enoxaparin Sodium (Lovenox) 40 mg SC DAILY [facility]; Protocol Last Admin: 03/22/18 10:43 Dose: 40 mg Gabapentin (Neurontin) 300 mg PO TID [facility]; Protocol Last Admin: 03/22/18 10:47 Dose: 300 mg Guaifenesin (Robitussin) 100 mg PO Q4H PRN PRN Reason: Cough Last Admin: 03/20/18 21:09 Dose: 100 mg Sodium Chloride (Sodium Chloride 0.9%) 1,000 mls @ 60 mls/hr IV .[id number] [facility] Last Admin: 03/22/18 10:48 Dose: 60 mls/hr Levalbuterol HCl (Xopenex) 0.63 mg IH TIDRESP [facility] Last Admin: 03/22/18 08:15 Dose: 0.63 mg Methylprednisolone (Solu-Medrol) 20 mg IVP Q12 [facility] Last Admin: 03/22/18 10:43 Dose: 20 mg Metoprolol Succinate (Toprol Xl) 100 mg PO DAILY [facility] Last Admin: 03/22/18 10:47 Dose: 100 mg Morphine Sulfate (Morphine) 2 mg IVP Q4H PRN PRN Reason: Pain, severe (8-10) Last Admin: 03/21/18 21:58 Dose: 2 mg Nystatin (Nystatin Oral Susp) 5 ml PO QID [facility] Last Admin: 03/22/18 10:45 Dose: 5 ml Oxycodone HCl (Oxycontin Extended Release Tab) 20 mg PO Q12 [facility] Last Admin: 03/22/18 10:46 Dose: 20 mg Pantoprazole Sodium (Protonix Ec Tab) 40 mg PO ACB [facility] Last Admin: 03/22/18 08:59 Dose: 40 mg Polyethylene Glycol (Miralax) 17 gm PO BID [facility] Last Admin: 03/22/18 11:02 Dose: Not Given Tamsulosin HCl (Flomax) 0.4 mg PO DAILY [facility] Last Admin: 03/22/18 10:47 Dose: 0.4 mg - Labs Labs: 03/22/18 06:00 03/22/18 06:00 PT 16.2 SECONDS (9.4-12.5) H 03/11/18 20:55 INR 1.41 03/11/18 20:55 APTT 28.5 Seconds (25.1-36.5) 03/11/18 20:55 - Additional Findings Additional findings: - Constitutional Appears: Non-toxic, Cachectic - Head Exam Head Exam: ATRAUMATIC, NORMOCEPHALIC - Eye Exam Eye Exam: EOMI, Normal appearance - ENT Exam ENT Exam: Mucous Membranes Dry, minimal white plaques in posterior oral mucosa - Respiratory Exam Respiratory Exam: Decreased Breath Sounds (right lung field), Rales (left lung). Chest tube in place draining red fluid. No respiratory distress. - Cardiovascular Exam Cardiovascular Exam: regular rhyhtm, +S1, +S2 - GI/Abdominal Exam GI & Abdominal Exam: Soft, Normal Bowel Sounds - Extremities Exam Extremities Exam: Normal Inspection. absent: Calf Tenderness - Neurological Exam Neurological Exam: Alert, Awake, Oriented x3. moving all 4 extremities without difficulty. muscle strength in all 4 extremities is 5/5. 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 Patient was admitted to ICU for management and treatment of hypoxemic respiratory failure. Patient has recurrent pleural effusion, likely malignant. Plan: Right pleural effusion - improved -awaiting pleurx catheter placement -chest tube drained 530cc of sanguinous fluid today -CT Chest 03/19 shows decrease in right pleural effusion, multiloculated hydropneumothorax, improved aeration of the right lung, multiple liver masses -CXR today shows improved right pleural effusion -urine culture negative, blood culture negative for 5 days -completed doxy, merrem course -WBC downtrending today, afebrile -solumedrol 20 q12, pulmicort, mucomyst, xopenex, acetylcysteine -echo shows EF 53%, RVSP 61 -trops are indeterminate -IR, pulm, cardio consult Elevated BUN -likely dehydration -patient has poor appetite, counseling given on increased food/fluid intake -will increase NS to 60cc/hr Urinary retention -refusing straight cath and borja -improved voiding today, will monitor -continue flomax Hx of stage 4 non small cell lung cancer -mets to the liver, lungs, bone -currently on immunotherapy -given nystatin for oral thrush- improved today -candidate for laser ablation of the right main stem with stent and tumor debulking -patient/family to make decision in regards to degree of aggressive treatment -heme/onc on consult -psych on consult for depression Mild hyperkalemia - resolved -if not improved, will give kayexalate Tachycardia-resolved -continue home toprol XL 100mg Conjunctivitis - resolved -L eye > R eye -topical ciprofloxacin - completed PPX/Diet -lovenox protonix -HHD Patient seen and case discussed with attending, Dr. Sidhu <Fred Sidhu - Last Filed: 03/22/18 15:45> Objective - Vital Signs/Intake and Output Vital Signs (last 24 hours): Temp Pulse Resp BP Pulse Ox 98.1 F 102 H 18 136/83 95 03/22/18 12:00 03/22/18 12:00 03/22/18 12:00 03/22/18 12:00 03/22/18 05:36 Intake and Output: 03/22/18 03/22/18 06:59 18:59 Intake Total 360 Output Total 930 Balance -570 - Medications Medications: Current Medications Acetylcysteine (Acetylcysteine 20%) 4 ml IH BIDRESP [facility] Last Admin: 03/22/18 08:14 Dose: 4 ml Albuterol/Ipratropium (Duoneb 3 Mg/0.5 Mg (3 Ml) Ud) 3 ml IH Q2H PRN PRN Reason: Shortness of Breath Last Admin: 03/20/18 19:34 Dose: 3 ml Alprazolam (Xanax) 0.125 mg PO BID PRN; Protocol PRN Reason: Anxiety Stop: 03/24/18 18:01 Last Admin: 03/19/18 11:36 Dose: 0.125 mg Benzonatate (Tessalon Perles) 100 mg PO TID [facility] Last Admin: 03/22/18 14:13 Dose: 100 mg Budesonide (Pulmicort Respules) 0.5 mg IH [id number] [facility] Last Admin: 03/22/18 08:15 Dose: 0.5 mg Duloxetine HCl (Cymbalta) 60 mg PO DAILY [facility] Last Admin: 03/22/18 10:45 Dose: 60 mg Enoxaparin Sodium (Lovenox) 40 mg SC DAILY [facility]; Protocol Last Admin: 03/22/18 10:43 Dose: 40 mg Gabapentin (Neurontin) 300 mg PO TID [facility]; Protocol Last Admin: 03/22/18 14:13 Dose: 300 mg Guaifenesin (Robitussin) 100 mg PO Q4H PRN PRN Reason: Cough Last Admin: 03/20/18 21:09 Dose: 100 mg Sodium Chloride (Sodium Chloride 0.9%) 1,000 mls @ 60 mls/hr IV .[id number] [facility] Last Admin: 03/22/18 10:48 Dose: 60 mls/hr Levalbuterol HCl (Xopenex) 0.63 mg IH TIDRESP [facility] Last Admin: 03/22/18 14:22 Dose: 0.63 mg Methylprednisolone (Solu-Medrol) 20 mg IVP Q12 [facility] Last Admin: 03/22/18 10:43 Dose: 20 mg Metoprolol Succinate (Toprol Xl) 100 mg PO DAILY [facility] Last Admin: 03/22/18 10:47 Dose: 100 mg Morphine Sulfate (Morphine) 2 mg IVP Q4H PRN PRN Reason: Pain, severe (8-10) Last Admin: 03/21/18 21:58 Dose: 2 mg Nystatin (Nystatin Oral Susp) 5 ml PO QID [facility] Last Admin: 03/22/18 14:12 Dose: 5 ml Oxycodone HCl (Oxycontin Extended Release Tab) 20 mg PO Q12 [facility] Last Admin: 03/22/18 10:46 Dose: 20 mg Pantoprazole Sodium (Protonix Ec Tab) 40 mg PO ACB [facility] Last Admin: 03/22/18 08:59 Dose: 40 mg Polyethylene Glycol (Miralax) 17 gm PO BID [facility] Last Admin: 03/22/18 11:02 Dose: Not Given Tamsulosin HCl (Flomax) 0.4 mg PO DAILY [facility] Last Admin: 03/22/18 10:47 Dose: 0.4 mg - Labs Labs: 03/22/18 06:00 03/22/18 06:00 PT 16.2 SECONDS (9.4-12.5) H 03/11/18 20:55 INR 1.41 03/11/18 20:55 APTT 28.5 Seconds (25.1-36.5) 03/11/18 20:55 Attending/Attestation - Attestation I have personally seen and examined this patient.: Yes I have fully participated in the care of the patient.: Yes I have reviewed all pertinent clinical information, including history, physical exam and plan: Yes Notes (Text): 03/22/18 15:38 Medical record note made by the resident after discussion with my direction and input after the patient was personally seen and examined by me. I have reviewed the chart and agree that the record accurately reflects by personal performance of the history, physical exam, data review, and medical decision-making, in the course for the patient. I have also personally directed the plan of care. 67M w/ a reported PMH of adenocarcinoma of lune lungs, HTN, EtOH abuse, Anxeity, presented to [facility] ED on 03/11/18 w/ complaints of worsening SOB x2 weeks due to due to recurrent right sided pleural effusion, likely malignant and Possible Pneumonia.Patient had thoracentesis done on 01/11/19 and 1890 ml of fluid was removed. Repeat Chest X ray today showed complete opacification of right side. Patient underwent chest tube placement followed by re positioning of chest tube. Repeat chest X ray today showed hydropneumo thorax. Pulmonary and IR is following.Patient will need Pleural catheter as recommended by Pulmonary and IR. He is SP treatment for HCAP Pneumonia. Patient has urinary retention likely due to BPH, started on Flomax, refusing straight cath. Patient BUN and creatinin is mildly elevated , has been encouraged to drink fluid, also started on gentle IV hydration. Patient is full code. Prognosis is guarded. Management plan was discussed in detail with patient. Education was provided. 03/22/18 15:40 03/22/18 15:42
--- NOTE | 2018-03-22 12:22 | CP.PCM.PCO ---
Physician Communication Note - Physician Communication Note Physician Communication Note: patient may be taken off chest suction to get doppler
--- NOTE | 2018-03-22 12:43 | CON ---
DATE: 03/22/2018 HISTORY OF PRESENT ILLNESS: The patient is 67-year-old white male, psychiatrist found on the medical side due to depression and noncompliance at times in the unit. I reviewed Dr. Mi's consultations which indicate that patient has been intermittently cooperative with her and with her interview attempts though he had refused to engage with her yesterday because he was feeling weak and tired. Patient did initially refused to me and made multiple excuses not to engage in interview; however, a visit with him on 3 different occasions and he ultimately agrees to talk with me. The patient admits that he is depressed, has been difficult because of his medical issues. He feels very tired. The patient is adamant that he is not suicidal, he wants to improve, but he really does not know why he does not take medications, he feel like low motivation, low energy and lot to do with his refusal. Patient seems to be apathetic to cope with at times, but he denies having hopelessness at this time. Affect is constricted. Eye contact is poor. He denies any perceptual disturbances and does not appear to be responding to internal stimuli. He has been refusing Cymbalta for few days. I discussed the therapeutic latency and then possible benefits of this medication that he continues to take it and indicates that he will start cooperating with medication. The patient's behavior overall has not really changed over the weekend. He is intermittently compliant and at times rejecting of staff members, but not because of paranoia because just lack of energy and motivation. . Relevant psychiatric medications include Xanax 0.125 p.o. twice daily p.r.n. The patient has not received any doses since 03/19/2018, Cymbalta 60 mg daily. The patient did take the dose this morning after our conversation, refused on 03/21/2018 and 03/20/2018. IMPRESSION: Rule out mood disorder due to general medical condition, rule out adjustment disorder with depressed mood and anxiety, rule out major depressive disorder. PLAN: We will continue with Cymbalta and Xanax, this medications were reviewed with patient at bedside. Supportive therapy was done with patient. The patient reported he would start to take the Cymbalta again which he gets this morning. Psychiatry will continue to follow up. Next followup would be in 2 days on Saturday03/24/2018. Carlos A Trimble MD [facility] # [phone]
--- NOTE | 2018-03-22 13:47 | RAD ---
Date of service: 03/22/2018 HISTORY: chest tube, hx lung cancer COMPARISON: March 21, 2018. FINDINGS: LUNGS: Stable consolidative changes right lung. PLEURA: Stable position of chest tube in the right pleural space. Tiny apical pneumothorax identified. The finding is marked on the study for review. . CARDIOVASCULAR: No atherosclerotic calcification present No radiographic findings to suggest acute or significant cardiovascular disease. Venous access catheter in stable, satisfactory position. OSSEOUS STRUCTURES: No significant abnormalities. VISUALIZED UPPER ABDOMEN: Normal. OTHER FINDINGS: None. IMPRESSION: Tiny right apical pneumothorax not felt to be clinically consequential. Otherwise no significant interval changes.
--- NOTE | 2018-03-22 17:23 | PN ---
DATE: 03/22/2018 SUBJECTIVE: The patient is in bed in no acute distress and nontoxic. PHYSICAL EXAMINATION: VITAL SIGNS: Temperature is 98, blood pressure is 136/80, respiratory of 80, heart rate of 102. HEENT: Unremarkable. NECK: Supple. LUNGS: Have decreased breath sounds. HEART: Normal S1, S2. ABDOMEN: Soft. LABORATORY EXAMINATION: Reveals a white count of 8000, hemoglobin of 11 and platelets of 155. Chemistries are noted. Urinalysis is noted. Serology is negative. Microbiology is negative. Review of orders reveals the patient to have off of antibiotics. The patient is on Solu-Medrol. ASSESSMENT AND PLAN: This is a 67-year-old with right-sided hospital-acquired pneumonia, status post chest tube placement, status post right-sided thoracentesis and stage IV lung cancer with bone and liver metastases in a patient with chronic obstructive lung disease, hypertension and status post treatment with doxycycline, meropenem, currently off of antibiotics. The patient with a chest tube. He is at a risk for developing nosocomial infections. Edgard Mackey MD
--- NOTE | 2018-03-22 17:26 | PN ---
DATE: 03/22/2018 PULMONARY PROGRESS NOTE REFERRING PHYSICIAN: Dr. Sidhu. SUBJECTIVE: The patient is sitting up in bed in no acute distress. No overnight events reported. The patient reports voiding today. No headache, rhinitis, cough, chest pain, abdominal pain, nausea, vomiting, diarrhea, leg pain or leg swelling reported. The patient reports discomfort at chest tube side. OBJECTIVE: VITAL SIGNS: Blood pressure 136/83, pulse 102, and temperature 98. GENERAL: No acute distress. HEENT: Moist mucous membranes. NECK: Supple. No JVD. LUNGS: Decreased breath sounds on the right, few rhonchi on the left. Chest tube in place. CARDIOVASCULAR: S1 and S2 audible. ABDOMEN: Soft and nontender. No distention. No organomegaly. EXTREMITIES: No bilateral lower extremity edema. NEUROLOGIC: Awake, alert and verbal. Follows commands. MEDICATIONS: Reviewed. Mucomyst 4 mL inhalation twice a day, DuoNeb 3 mL inhalation every 2 hours p.r.n, Xanax 0.125 mg twice a day p.r.n., Tessalon Perles 100 mg 3 times a day, Pulmicort 0.5 mg inhalation every 12 hours, Cymbalta 60 mg p.o. daily, Lovenox 40 mg subcu daily, gabapentin 300 mg three times a day, Robitussin 100 mg every 4 hours p.r.n., Xopenex 0.63 mg inhalation 3 times a day, Solu-Medrol 20 mg IV push every 12 hours, metoprolol succinate 100 mg daily, morphine sulfate 2 mg IV push every 4 hours p.r.n. severe pain, nystatin 5 mL p.o. 4 times a day, OxyContin extended release 20 mg every 12 hours, Protonix 40 mg a.c., MiraLax 17 g twice a day, sodium chloride 0.9% 1000 mL at 60 mL per hour and Flomax 0.4 mg p.o. daily. LABORATORY DATA: Reviewed. WBC 18.3, RBC 4.32, hemoglobin 11.2, hematocrit 35.5 and platelets 155. Sodium 138, potassium 5.1, chloride 107, carbon dioxide 20, anion gap 9, BUN 53, creatinine 1.2, GFR greater than 60, POC glucose 105, calcium 8.1, phosphorus 4.2, magnesium 2.02, total bilirubin 1.2, AST 17, ALT 44, alkaline phosphatase 102, total protein 4.5, albumin 2.2, globulin 2.3 and albumin-globulin ratio 1. Chest x-ray shows tiny right apical pneumothorax not felt to be clinically consequential, otherwise no significant interval changes. Upper extremity ultrasound pending report. 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 Continue to monitor chest tube output. Oncology followup. The patient is pending PleurX catheter to be placed after chest tube was removed. Continue inhaled bronchodilators, steroids, gastric prophylaxis and deep venous thrombosis prophylaxis, head of bed elevated at 45 degrees. We will repeat the chest x-ray in the morning to follow up on pneumothorax. This patient was seen and examined with Dr. Read. Discussed assessment and plan as described above. Thank you for this consult and we will follow with you. Mark Luke APN Fred Read MD
[2018-03-22] MEDS: Morphine 2 mg/ml ISec IVP PRN (20:50)
[2018-03-23] MEDS: Sodium Chloride 0.9% 1,000 ML IV SCH ×2 (04:00→21:40)
[2018-03-23] MEDS: Morphine 2 mg/ml ISec IVP PRN (07:06)
[2018-03-23 07:56] LABS: GRAN # 7.61 (1.4-6.5); GRAN % 90.2 % (50.0-68.0); HEMOGLOBIN 9.5 g/dL (14.0-18.0); LYMPH # 0.6 (1.2-3.4); MEAN CELL VOLUME 85.5 fl (80.0-105.0); MEAN CORPUSCULAR HEMOGLOBIN 27.1 pg (25.0-35.0); MEAN CORPUSCULAR HGB CONC 31.7 g/dl (31.0-37.0); MEAN PLATELET VOLUME 11.6 fl (7.0-11.0); MONO # 0.2 (0.1-0.6); MONO % 2.8 % (1.0-6.0); RBC 3.51 10^6/uL (3.5-6.1); RED CELL DISTRIBUTION WIDTH 17.6 % (11.5-14.5); WHITE BLOOD COUNT 8.4 10^3/uL (4.5-11.0)
[2018-03-23] MEDS: Budesonide 0.5 mg/2 ml Inhal Susp UD IH SCH ×2 (08:03→19:40)
[2018-03-23] MEDS: Acetylcysteine 20% Inhal Soln (4ml) IH SCH ×2 (08:03→19:40)
[2018-03-23] MEDS: Levalbuterol 0.63 MG/3 ML Inhal Soln UD IH SCH ×4 (08:04→19:40)
[2018-03-23 08:17] LABS: ALB/GLOB RATIO 0.9 (1.1-1.8); ALBUMIN 1.8 g/dL (3.0-4.8); ALT/SGPT 43 U/L (7-56); AST/SGOT 19 U/L (17-59); BLOOD UREA NITROGEN 42 mg/dL (7-21); CALCIUM 7.5 mg/dL (8.4-10.5); GFR NON-AFRICAN AMERICAN > 60
[2018-03-23] MEDS: Pantoprazole 40 mg EC Tab PO SCH (08:38)
--- NOTE | 2018-03-23 09:01 | PN ---
DATE: 03/23/2018 PULMONARY PROGRESS NOTE REFERRING PHYSICIAN: Fred Sidhu MD SUBJECTIVE: The patient is sitting up in bed. No acute distress. No overnight events reported. The patient reports feeling a little better this morning. No headache, rhinitis, cough, chest pain, abdominal pain, nausea, vomiting, diarrhea, leg pain, or leg swelling reported. The patient reports chest tube site with less discomfort this morning. OBJECTIVE: GENERAL: No acute distress. VITAL SIGNS: Blood pressure 97/67, pulse 75, temperature 97.8, and oxygen saturation 97%. HEENT: Moist mucous membranes. NECK: Supple. No JVD. LUNGS: Decreased breath sounds on the right, few rhonchi on the left. Chest tube in place on the right. CARDIOVASCULAR: S1 and S2 audible. ABDOMEN: Soft and nontender. No distention. No organomegaly. EXTREMITIES: No bilateral lower extremity edema. NEUROLOGIC: Awake, alert, and verbal. Follows commands. MEDICATIONS: Reviewed. Mucomyst 4 mL inhalation twice a day, DuoNeb 3 mL inhalation every 2 hours p.r.n, Xanax 0.125 mg twice a day p.r.n., Tessalon Perles 100 mg 3 times a day, Pulmicort 0.5 mg every 12 hours, Cymbalta 60 mg daily, Lovenox 40 mg subcutaneously daily, gabapentin 300 mg 3 times a day, Robitussin 100 mg every 4 hours p.r.n., Xopenex 0.63 mg inhalation 3 times a day, Solu-Medrol 20 mg IV push every 12 hours, metoprolol succinate 100 mg p.o. daily, morphine sulfate 2 mg IV push every 4 hours p.r.n. severe pain, nystatin 5 mL p.o. 4 times a day, oxycodone 20 mg every 12 hours, Protonix 40 mg in the morning, MiraLax 17 g twice a day, sodium chloride 0.9% 1000 mL at 60 mL per hour and Flomax 0.4 mg p.o. daily. LABORATORY DATA: Reviewed. Sodium 134, potassium 4.8, chloride 104, carbon dioxide 28, anion gap 7, BUN 42, creatinine 1, GFR greater than 60, random glucose 97, calcium 7.5, phosphorus 3.7, magnesium 1.9, total bilirubin 0.9, AST 19, ALT 43, alkaline phosphatase 81, total protein 3.9, albumin 1.8, globulin 2.0 and albumin-globulin ratio 0.9. Chest x-ray report pending. Upper extremity ultrasound report pending. 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 Continue to monitor chest tube output. Oncology followup. The patient is pending PleurX catheter to be placed after chest tube is removed. Continue inhaled bronchodilators, steroids, gastric prophylaxis and deep venous thrombosis prophylaxis, head of bed elevated at 45 degrees. We will review chest x-ray once available. This patient was seen and examined with Dr. Read. Discussed assessment and plan as described above. Thank you for this consult and we will follow with you. Mark Luke APN Fred Read MD
--- NOTE | 2018-03-23 10:35 | RAD ---
Date of service: 03/23/2018 HISTORY: chest tube, hx lung cancer COMPARISON: Multiple serial examinations preceding the most recent study: March 22, 2018. Time of the most recent examination: 10:17. FINDINGS: LUNGS: Progressive consolidative changes right lower lobe. More conspicuous perihilar infiltrate/mass likely related to increasing right pneumothorax. PLEURA: Increase in right pneumothorax without evidence of tension pneumothorax. Pleura catheter again identified medial aspect of the right pleural space. CARDIOVASCULAR: No atherosclerotic calcification present Venous access catheter in stable, satisfactory position. OSSEOUS STRUCTURES: No significant abnormalities. VISUALIZED UPPER ABDOMEN: Normal. OTHER FINDINGS: None. IMPRESSION: Increase in right pneumothorax compared to prior studies.
--- NOTE | 2018-03-23 10:35 | PN ---
DATE: 03/23/2018 SUBJECTIVE: The patient seen earlier this morning in room 260, bed 2. No fevers, no chills. He is weak, complaining of generalized weakness, mild shortness of breath and cough. PHYSICAL EXAMINATION: VITAL SIGNS: Temperature is 97, blood pressure is 98/50, respiratory rate of 18, heart rate of 80. HEENT: Unremarkable. NECK: Supple. LUNGS: Have decreased breath sounds. HEART: Normal S1, S2. ABDOMEN: Soft. LABORATORY EXAMINATION: Reveals the patient's white count is down to 8400, hemoglobin of 9, and a BUN of 42, creatinine of 1.0. Microbiology is noted. Review of orders reveals the patient is on Solu-Medrol and off of antibiotics. ASSESSMENT AND PLAN: This is a 67-year-old male seen earlier this morning who was admitted with right-sided hospital-acquired pneumonia, chest tube placement, right-sided thoracentesis, with stage IV lung cancer and bone and liver metastases, chronic obstructive lung disease, hypertension, has completed antibiotic therapy with doxycycline, meropenem. White count is normalized now. The patient is at risk for developing nosocomial infections. Overall prognosis is quite poor for this patient. Edgard Mackey MD
--- NOTE | 2018-03-23 10:36 | CP.PCM.PN ---
<Neris Irwin - Last Filed: 03/23/18 10:51> Subjective - Date & Time of Evaluation Date of Evaluation: 03/23/18 Time of Evaluation: 08:30 - Subjective Subjective: Neris Irwin PGY1 Hospital Progress Note Patient seen and examined at bedside this morning. No acute events reported overnight. Patient voided 300cc today and chest tube drained 460cc today. Awaiting pleurx catheter placement this week then possible dc planning. Offers no new complaints today. Objective - Vital Signs/Intake and Output Vital Signs (last 24 hours): Temp Pulse Resp BP Pulse Ox 97.9 F 75 18 97/67 L 97 03/23/18 06:00 03/23/18 06:00 03/23/18 06:00 03/23/18 06:00 03/23/18 06:00 Intake and Output: 03/23/18 03/23/18 06:59 18:59 Intake Total 2152 Output Total 1060 Balance 1092 - Medications Medications: Current Medications Acetylcysteine (Acetylcysteine 20%) 4 ml IH BIDRESP [facility] Last Admin: 03/23/18 08:03 Dose: 4 ml Albuterol/Ipratropium (Duoneb 3 Mg/0.5 Mg (3 Ml) Ud) 3 ml IH Q2H PRN PRN Reason: Shortness of Breath Last Admin: 03/20/18 19:34 Dose: 3 ml Alprazolam (Xanax) 0.125 mg PO BID PRN; Protocol PRN Reason: Anxiety Stop: 03/24/18 18:01 Last Admin: 03/19/18 11:36 Dose: 0.125 mg Benzonatate (Tessalon Perles) 100 mg PO TID [facility] Last Admin: 03/22/18 17:47 Dose: 100 mg Budesonide (Pulmicort Respules) 0.5 mg IH [id number] [facility] Last Admin: 03/23/18 08:03 Dose: 0.5 mg Duloxetine HCl (Cymbalta) 60 mg PO DAILY [facility] Last Admin: 03/22/18 10:45 Dose: 60 mg Enoxaparin Sodium (Lovenox) 40 mg SC DAILY [facility]; Protocol Last Admin: 03/22/18 10:43 Dose: 40 mg Gabapentin (Neurontin) 300 mg PO TID [facility]; Protocol Last Admin: 03/22/18 17:47 Dose: 300 mg Guaifenesin (Robitussin) 100 mg PO Q4H PRN PRN Reason: Cough Last Admin: 03/20/18 21:09 Dose: 100 mg Sodium Chloride (Sodium Chloride 0.9%) 1,000 mls @ 60 mls/hr IV .[id number] [facility] Last Admin: 03/23/18 04:00 Dose: 60 mls/hr Levalbuterol HCl (Xopenex) 0.63 mg IH TIDRESP [facility] Last Admin: 03/23/18 08:04 Dose: 0.63 mg Methylprednisolone (Solu-Medrol) 20 mg IVP Q12 [facility] Last Admin: 03/22/18 22:56 Dose: 20 mg Metoprolol Succinate (Toprol Xl) 100 mg PO DAILY [facility] Last Admin: 03/22/18 10:47 Dose: 100 mg Morphine Sulfate (Morphine) 2 mg IVP Q4H PRN PRN Reason: Pain, severe (8-10) Last Admin: 03/23/18 07:06 Dose: 2 mg Nystatin (Nystatin Oral Susp) 5 ml PO QID [facility] Last Admin: 03/22/18 22:55 Dose: 5 ml Oxycodone HCl (Oxycontin Extended Release Tab) 20 mg PO Q12 [facility] Last Admin: 03/22/18 22:57 Dose: 20 mg Pantoprazole Sodium (Protonix Ec Tab) 40 mg PO ACB [facility] Last Admin: 03/23/18 08:38 Dose: 40 mg Polyethylene Glycol (Miralax) 17 gm PO BID [facility] Last Admin: 03/22/18 17:47 Dose: Not Given Tamsulosin HCl (Flomax) 0.4 mg PO DAILY [facility] Last Admin: 03/22/18 10:47 Dose: 0.4 mg - Labs Labs: 03/23/18 07:30 03/23/18 07:30 PT 16.2 SECONDS (9.4-12.5) H 03/11/18 20:55 INR 1.41 03/11/18 20:55 APTT 28.5 Seconds (25.1-36.5) 03/11/18 20:55 - Additional Findings Additional findings: - Constitutional Appears: Non-toxic, Cachectic - Head Exam Head Exam: ATRAUMATIC, NORMOCEPHALIC - Eye Exam Eye Exam: EOMI, Normal appearance - ENT Exam ENT Exam: Mucous Membranes Dry, minimal white plaques in posterior oral mucosa - Respiratory Exam Respiratory Exam: Rales (left lung). Chest tube in place draining red fluid. No respiratory distress or accessory muscle use. - Cardiovascular Exam Cardiovascular Exam: regular rhyhtm, +S1, +S2 - GI/Abdominal Exam GI & Abdominal Exam: Soft, Normal Bowel Sounds - Extremities Exam Extremities Exam: Normal Inspection. absent: Calf Tenderness - Neurological Exam Neurological Exam: Alert, Awake, Oriented x3. moving all 4 extremities without difficulty. muscle strength in all 4 extremities is 5/5. 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 Patient was admitted to ICU for management and treatment of hypoxemic respiratory failure. Patient has recurrent pleural effusion, likely malignant. Plan: Right pleural effusion - improved -awaiting pleurx catheter placement this week, then dc planning -chest tube drained 460cc of sanguinous fluid today -CXR today shows increase in right pneumothorax compared to prior studies -CT Chest 03/19 shows decrease in right pleural effusion, multiloculated hydropn eumothorax, improved aeration of the right lung, multiple liver masses -blood culture negative for 5 days -completed doxy, merrem course -WBC downtrending today, afebrile -solumedrol 20 q12, pulmicort, mucomyst, xopenex, acetylcysteine -echo shows EF 53%, RVSP 61 -trops are indeterminate -IR, pulm, cardio consult Elevated BUN -likely dehydration, BUN improving today -patient has poor appetite, counseling given on increased food/fluid intake -continue NS to 60cc/hr Urinary retention -refusing straight cath and borja -voided 300cc today, will monitor -continue flomax Hx of stage 4 non small cell lung cancer -mets to the liver, lungs, bone -currently on immunotherapy -given nystatin for oral thrush- improved today -candidate for laser ablation of the right main stem with stent and tumor debulking -patient/family to make decision in regards to degree of aggressive treatment -heme/onc on consult -psych on consult for depression Mild hyperkalemia - resolved Tachycardia-resolved -continue home toprol XL 100mg Conjunctivitis - resolved -topical ciprofloxacin - completed PPX/Diet -lovenox protonix -HHD Patient seen and case discussed with attending, Dr. Sidhu <Fred Sidhu - Last Filed: 03/23/18 13:47> Objective - Vital Signs/Intake and Output Vital Signs (last 24 hours): Temp Pulse Resp BP Pulse Ox 97.9 F 80 18 95/57 L 97 03/23/18 06:00 03/23/18 10:41 03/23/18 06:00 03/23/18 10:41 03/23/18 06:00 Intake and Output: 03/23/18 03/23/18 06:59 18:59 Intake Total 2152 Output Total 1060 Balance 1092 - Medications Medications: Current Medications Acetylcysteine (Acetylcysteine 20%) 4 ml IH BIDRESP [facility] Last Admin: 03/23/18 08:03 Dose: 4 ml Albuterol/Ipratropium (Duoneb 3 Mg/0.5 Mg (3 Ml) Ud) 3 ml IH Q2H PRN PRN Reason: Shortness of Breath Last Admin: 03/20/18 19:34 Dose: 3 ml Alprazolam (Xanax) 0.125 mg PO BID PRN; Protocol PRN Reason: Anxiety Stop: 03/24/18 18:01 Last Admin: 03/19/18 11:36 Dose: 0.125 mg Benzonatate (Tessalon Perles) 100 mg PO TID [facility] Last Admin: 03/23/18 10:40 Dose: 100 mg Budesonide (Pulmicort Respules) 0.5 mg IH [id number] [facility] Last Admin: 03/23/18 08:03 Dose: 0.5 mg Duloxetine HCl (Cymbalta) 60 mg PO DAILY [facility] Last Admin: 03/23/18 10:40 Dose: 60 mg Enoxaparin Sodium (Lovenox) 40 mg SC DAILY [facility]; Protocol Last Admin: 03/23/18 10:40 Dose: 40 mg Gabapentin (Neurontin) 300 mg PO TID [facility]; Protocol Last Admin: 03/23/18 10:41 Dose: 300 mg Guaifenesin (Robitussin) 100 mg PO Q4H PRN PRN Reason: Cough Last Admin: 03/20/18 21:09 Dose: 100 mg Sodium Chloride (Sodium Chloride 0.9%) 1,000 mls @ 60 mls/hr IV .[id number] [facility] Last Admin: 03/23/18 04:00 Dose: 60 mls/hr Levalbuterol HCl (Xopenex) 0.63 mg IH TIDRESP [facility] Last Admin: 03/23/18 12:45 Dose: 0.63 mg Methylprednisolone (Solu-Medrol) 20 mg IVP Q12 [facility] Last Admin: 03/23/18 10:39 Dose: 20 mg Metoprolol Succinate (Toprol Xl) 100 mg PO DAILY [facility] Last Admin: 03/23/18 10:41 Dose: Not Given Morphine Sulfate (Morphine) 2 mg IVP Q4H PRN PRN Reason: Pain, severe (8-10) Last Admin: 03/23/18 07:06 Dose: 2 mg Nystatin (Nystatin Oral Susp) 5 ml PO QID [facility] Last Admin: 03/23/18 10:40 Dose: 5 ml Oxycodone HCl (Oxycontin Extended Release Tab) 20 mg PO Q12 [facility] Last Admin: 03/23/18 10:40 Dose: 20 mg Pantoprazole Sodium (Protonix Ec Tab) 40 mg PO ACB [facility] Last Admin: 03/23/18 08:38 Dose: 40 mg Polyethylene Glycol (Miralax) 17 gm PO BID [facility] Last Admin: 03/23/18 10:41 Dose: Not Given Tamsulosin HCl (Flomax) 0.4 mg PO DAILY [facility] Last Admin: 03/23/18 10:41 Dose: 0.4 mg - Labs Labs: 03/23/18 07:30 03/23/18 07:30 PT 16.2 SECONDS (9.4-12.5) H 03/11/18 20:55 INR 1.41 03/11/18 20:55 APTT 28.5 Seconds (25.1-36.5) 03/11/18 20:55 Attending/Attestation - Attestation I have personally seen and examined this patient.: Yes I have fully participated in the care of the patient.: Yes I have reviewed all pertinent clinical information, including history, physical exam and plan: Yes Notes (Text): 03/23/18 13:46 67M w/ a reported PMH of adenocarcinoma of lune lungs, HTN, EtOH abuse, Anxiety, presented to [facility] on 03[place]/18 w/ complaints of worsening SOB x2 weeks due to due to recurrent right sided pleural effusion, likely malignant and Possible Pneumonia. Patient had thoracentesis done on 01/11/19 and 1890 ml of fluid was removed. Repeat Chest X ray today showed complete opacification of right side. Patient underwent chest tube placement followed by re positioning of chest tube.Repeat chest X ray today showed hydropneumo thorax.Pulmonary and IR is following. Patient will need Pleural catheter as recommended by Pulmonary and IR. Patient is SP treatment for HCAP Pneumonia. Patient BUN and creatinin is mildly elevated , has been encouraged to drink fluid, also started on gentle IV hydration. BPH on Flomax.Urinary symptoms are improving. Patient is full code. Prognosis is guarded.
[2018-03-23] MEDS: MethylPREDNISolone 40 mg Vial IVP SCH ×2 (10:39→21:10)
[2018-03-23] MEDS: oxyCODONE 20 mg ER Tab (oxyCONTIN) PO SCH ×3 (10:40→23:50)
[2018-03-23] MEDS: Enoxaparin 40 mg Syringe SC SCH (10:40)
[2018-03-23] MEDS: Nystatin 100,000 Units/ml Oral Susp 5 ml UD PO SCH ×4 (10:40→21:10)
[2018-03-23] MEDS: Metoprolol Succinate 100 mg XL Tab PO SCH (10:41)
[2018-03-23] MEDS: POLYETHYLENE GLYCOL 3350 17 GM/Dose PACKET PO SCH ×2 (10:41→17:56)
--- NOTE | 2018-03-23 13:30 | US ---
PROCEDURE: Left upper extremity venous ultrasound HISTORY: Arm pain and swelling. Evaluate for deep venous thrombosis. PHYSICIAN(S): Smooth Izquierdo MD. FINDINGS: The visualized leftinternal jugular vein is sonographically normal and compressible. No evidence of obstruction or thrombus is seen. The visualized segments of the left subclavian vein are patent with normal waveforms. No sonographic evidence of obstruction or thrombosis is seen. The visualized deep venous system of the proximal leftupper extremity is sonographically normal and compressible. IMPRESSION: 1. No sonographic evidence for deep venous thrombosis in the visualized segments of the left upper extremity.
--- NOTE | 2018-03-23 19:15 | CP.PCM.PN ---
Subjective - Date & Time of Evaluation Date of Evaluation: 03/22/18 Time of Evaluation: 19:00 - Subjective Subjective: Complains of some slight discomfort at pleural catheter placement. Otherwise no acute complaints Objective - Vital Signs/Intake and Output Vital Signs (last 24 hours): Temp Pulse Resp BP Pulse Ox 94.5 F L 75 18 100/64 97 03/23/18 18:00 03/23/18 18:00 03/23/18 18:00 03/23/18 18:00 03/23/18 18:00 Intake and Output: 03/23/18 03/24/18 18:59 06:59 Intake Total 586 Output Total 490 Balance 96 - Medications Medications: Current Medications Acetylcysteine (Acetylcysteine 20%) 4 ml IH BIDRESP [facility] Last Admin: 03/23/18 08:03 Dose: 4 ml Albuterol/Ipratropium (Duoneb 3 Mg/0.5 Mg (3 Ml) Ud) 3 ml IH Q2H PRN PRN Reason: Shortness of Breath Last Admin: 03/20/18 19:34 Dose: 3 ml Alprazolam (Xanax) 0.125 mg PO BID PRN; Protocol PRN Reason: Anxiety Stop: 03/24/18 18:01 Last Admin: 03/19/18 11:36 Dose: 0.125 mg Benzonatate (Tessalon Perles) 100 mg PO TID [facility] Last Admin: 03/23/18 17:56 Dose: 100 mg Budesonide (Pulmicort Respules) 0.5 mg IH [id number] [facility] Last Admin: 03/23/18 08:03 Dose: 0.5 mg Duloxetine HCl (Cymbalta) 60 mg PO DAILY [facility] Last Admin: 03/23/18 10:40 Dose: 60 mg Enoxaparin Sodium (Lovenox) 40 mg SC DAILY [facility]; Protocol Last Admin: 03/23/18 10:40 Dose: 40 mg Gabapentin (Neurontin) 300 mg PO TID [facility]; Protocol Last Admin: 03/23/18 17:55 Dose: 300 mg Guaifenesin (Robitussin) 100 mg PO Q4H PRN PRN Reason: Cough Last Admin: 03/20/18 21:09 Dose: 100 mg Sodium Chloride (Sodium Chloride 0.9%) 1,000 mls @ 60 mls/hr IV .[id number] [facility] Last Admin: 03/23/18 04:00 Dose: 60 mls/hr Levalbuterol HCl (Xopenex) 0.63 mg IH TIDRESP [facility] Last Admin: 03/23/18 12:45 Dose: 0.63 mg Methylprednisolone (Solu-Medrol) 20 mg IVP Q12 [facility] Last Admin: 03/23/18 10:39 Dose: 20 mg Metoprolol Succinate (Toprol Xl) 100 mg PO DAILY [facility] Last Admin: 03/23/18 10:41 Dose: Not Given Morphine Sulfate (Morphine) 2 mg IVP Q4H PRN PRN Reason: Pain, severe (8-10) Last Admin: 03/23/18 07:06 Dose: 2 mg Nystatin (Nystatin Oral Susp) 5 ml PO QID [facility] Last Admin: 03/23/18 17:55 Dose: 5 ml Oxycodone HCl (Oxycontin Extended Release Tab) 20 mg PO Q12 [facility] Last Admin: 03/23/18 10:40 Dose: 20 mg Pantoprazole Sodium (Protonix Ec Tab) 40 mg PO ACB [facility] Last Admin: 03/23/18 08:38 Dose: 40 mg Polyethylene Glycol (Miralax) 17 gm PO BID [facility] Last Admin: 03/23/18 17:56 Dose: Not Given Tamsulosin HCl (Flomax) 0.4 mg PO DAILY [facility] Last Admin: 03/23/18 10:41 Dose: 0.4 mg - Labs Labs: 03/23/18 07:30 03/23/18 07:30 PT 16.2 SECONDS (9.4-12.5) H 03/11/18 20:55 INR 1.41 03/11/18 20:55 APTT 28.5 Seconds (25.1-36.5) 03/11/18 20:55 - Constitutional Appears: Well - Head Exam Head Exam: ATRAUMATIC, NORMAL INSPECTION, NORMOCEPHALIC - Respiratory Exam Respiratory Exam: Clear to Ausculation Bilateral, NORMAL BREATHING PATTERN. absent: Accessory Muscle Use - Cardiovascular Exam Cardiovascular Exam: REGULAR RHYTHM, +S1, +S2. absent: Murmur - Extremities Exam Extremities Exam: Calf Tenderness Assessment and Plan - Assessment and Plan (Free Text) Assessment: Mr. Lambert is a 67 y/o ruben with stage IV NSCLC with hepatic mets s/p RFA currently admitted with recurrent right pleural effusion thought to be malignant potentially vs infectious (cytology pending). Will plan on f/u with cytology and given prompt recurrence since last drainage in 01/2018 would agree with placement for pleurex catheter per recs of IR and pulmonary. Will need oncology f/u upon discharge.
--- NOTE | 2018-03-23 19:16 | CP.PCM.PN ---
Subjective - Date & Time of Evaluation Date of Evaluation: 03/23/18 Time of Evaluation: 19:00 - Subjective Subjective: Continues to have intermittent pain at pleural catheter placement. Otherwise no acute issues 12 ROS otherwise negative Objective - Vital Signs/Intake and Output Vital Signs (last 24 hours): Temp Pulse Resp BP Pulse Ox 94.5 F L 75 18 100/64 97 03/23/18 18:00 03/23/18 18:00 03/23/18 18:00 03/23/18 18:00 03/23/18 18:00 Intake and Output: 03/23/18 03/24/18 18:59 06:59 Intake Total 586 Output Total 490 Balance 96 - Medications Medications: Current Medications Acetylcysteine (Acetylcysteine 20%) 4 ml IH BIDRESP [facility] Last Admin: 03/23/18 08:03 Dose: 4 ml Albuterol/Ipratropium (Duoneb 3 Mg/0.5 Mg (3 Ml) Ud) 3 ml IH Q2H PRN PRN Reason: Shortness of Breath Last Admin: 03/20/18 19:34 Dose: 3 ml Alprazolam (Xanax) 0.125 mg PO BID PRN; Protocol PRN Reason: Anxiety Stop: 03/24/18 18:01 Last Admin: 03/19/18 11:36 Dose: 0.125 mg Benzonatate (Tessalon Perles) 100 mg PO TID [facility] Last Admin: 03/23/18 17:56 Dose: 100 mg Budesonide (Pulmicort Respules) 0.5 mg IH [id number] [facility] Last Admin: 03/23/18 08:03 Dose: 0.5 mg Duloxetine HCl (Cymbalta) 60 mg PO DAILY [facility] Last Admin: 03/23/18 10:40 Dose: 60 mg Enoxaparin Sodium (Lovenox) 40 mg SC DAILY [facility]; Protocol Last Admin: 03/23/18 10:40 Dose: 40 mg Gabapentin (Neurontin) 300 mg PO TID [facility]; Protocol Last Admin: 03/23/18 17:55 Dose: 300 mg Guaifenesin (Robitussin) 100 mg PO Q4H PRN PRN Reason: Cough Last Admin: 03/20/18 21:09 Dose: 100 mg Sodium Chloride (Sodium Chloride 0.9%) 1,000 mls @ 60 mls/hr IV .[id number] [facility] Last Admin: 03/23/18 04:00 Dose: 60 mls/hr Levalbuterol HCl (Xopenex) 0.63 mg IH TIDRESP [facility] Last Admin: 03/23/18 12:45 Dose: 0.63 mg Methylprednisolone (Solu-Medrol) 20 mg IVP Q12 [facility] Last Admin: 03/23/18 10:39 Dose: 20 mg Metoprolol Succinate (Toprol Xl) 100 mg PO DAILY [facility] Last Admin: 03/23/18 10:41 Dose: Not Given Morphine Sulfate (Morphine) 2 mg IVP Q4H PRN PRN Reason: Pain, severe (8-10) Last Admin: 03/23/18 07:06 Dose: 2 mg Nystatin (Nystatin Oral Susp) 5 ml PO QID [facility] Last Admin: 03/23/18 17:55 Dose: 5 ml Oxycodone HCl (Oxycontin Extended Release Tab) 20 mg PO Q12 [facility] Last Admin: 03/23/18 10:40 Dose: 20 mg Pantoprazole Sodium (Protonix Ec Tab) 40 mg PO ACB [facility] Last Admin: 03/23/18 08:38 Dose: 40 mg Polyethylene Glycol (Miralax) 17 gm PO BID [facility] Last Admin: 03/23/18 17:56 Dose: Not Given Tamsulosin HCl (Flomax) 0.4 mg PO DAILY [facility] Last Admin: 03/23/18 10:41 Dose: 0.4 mg - Labs Labs: 03/23/18 07:30 03/23/18 07:30 PT 16.2 SECONDS (9.4-12.5) H 03/11/18 20:55 INR 1.41 03/11/18 20:55 APTT 28.5 Seconds (25.1-36.5) 03/11/18 20:55 - Constitutional Appears: Non-toxic - Respiratory Exam Respiratory Exam: Clear to Ausculation Bilateral, NORMAL BREATHING PATTERN. absent: Accessory Muscle Use, Respiratory Distress - Cardiovascular Exam Cardiovascular Exam: REGULAR RHYTHM, +S1, +S2. absent: Murmur - GI/Abdominal Exam GI & Abdominal Exam: Soft, Normal Bowel Sounds. absent: Tenderness - Extremities Exam Extremities Exam: Full ROM, Normal Capillary Refill, Normal Inspection. absent: Joint Swelling, Pedal Edema Assessment and Plan - Assessment and Plan (Free Text) Assessment: Mr. Lambert is a 67 y/o ruben with stage IV NSCLC with hepatic mets s/p RFA currently admitted with recurrent right pleural effusion thought to be malignant potentially vs infectious (cytology pending). Will plan on f/u with cytology and given prompt recurrence since last drainage in 01/2018 would agree with placement for pleurex catheter per recs of IR and pulmonary. Will need oncology f/u upon discharge. Randy Vaughn MD Oncology
--- NOTE | 2018-03-23 21:40 | CP.PCM.PN ---
<Aaron Bhardwaj - Last Filed: 03/23/18 21:35> Subjective - Date & Time of Evaluation Date of Evaluation: 03/23/18 Time of Evaluation: 21:35 - Subjective Subjective: S Patient complains of tingling in the tongue. Patient ate fish for dinner but denies being allergic to any food. Denies fevers, chills, pruritis, SOB, CP, abd pain O HEENT: dry mucus membrane, chapped lips, tip of the tongue slightly red, no angioedema noted Lungs: CTA b/l, decreased lung sound on he right, chest tube in place on the right chest Heart: RRR, S1, S2 Abdomen: Soft, NT, NBS A Patient has dry lips, no signs of allergic reaction. Patient's BP is 80/60 P Will continue to monitor Petroleum jelly applied to lips IV fluids increased to 80 mls/hr Repeat vital signs in one hour Hold pain medications Objective - Vital Signs/Intake and Output Vital Signs (last 24 hours): Temp Pulse Resp BP Pulse Ox 97.2 F L 75 20 87/55 L 97 03/23/18 21:25 03/23/18 21:25 03/23/18 21:25 03/23/18 21:25 03/23/18 21:25 Intake and Output: 03/23/18 03/24/18 18:59 06:59 Intake Total 586 960 Output Total 490 300 Balance 96 660 - Medications Medications: Current Medications Acetylcysteine (Acetylcysteine 20%) 4 ml IH BIDRESP [facility] Last Admin: 03/23/18 19:40 Dose: 4 ml Albuterol/Ipratropium (Duoneb 3 Mg/0.5 Mg (3 Ml) Ud) 3 ml IH Q2H PRN PRN Reason: Shortness of Breath Last Admin: 03/20/18 19:34 Dose: 3 ml Alprazolam (Xanax) 0.125 mg PO BID PRN; Protocol PRN Reason: Anxiety Stop: 03/24/18 18:01 Last Admin: 03/19/18 11:36 Dose: 0.125 mg Benzonatate (Tessalon Perles) 100 mg PO TID [facility] Last Admin: 03/23/18 17:56 Dose: 100 mg Budesonide (Pulmicort Respules) 0.5 mg IH [id number] [facility] Last Admin: 03/23/18 19:40 Dose: 0.5 mg Duloxetine HCl (Cymbalta) 60 mg PO DAILY [facility] Last Admin: 03/23/18 10:40 Dose: 60 mg Enoxaparin Sodium (Lovenox) 40 mg SC DAILY [facility]; Protocol Last Admin: 03/23/18 10:40 Dose: 40 mg Gabapentin (Neurontin) 300 mg PO TID [facility]; Protocol Last Admin: 03/23/18 17:55 Dose: 300 mg Guaifenesin (Robitussin) 100 mg PO Q4H PRN PRN Reason: Cough Last Admin: 03/20/18 21:09 Dose: 100 mg Sodium Chloride (Sodium Chloride 0.9%) 1,000 mls @ 60 mls/hr IV .[id number] [facility] Last Admin: 03/23/18 04:00 Dose: 60 mls/hr Levalbuterol HCl (Xopenex) 0.63 mg IH TIDRESP [facility] Last Admin: 03/23/18 19:40 Dose: 0.63 mg Methylprednisolone (Solu-Medrol) 20 mg IVP Q12 [facility] Last Admin: 03/23/18 21:10 Dose: 20 mg Metoprolol Succinate (Toprol Xl) 100 mg PO DAILY [facility] Last Admin: 03/23/18 10:41 Dose: Not Given Morphine Sulfate (Morphine) 2 mg IVP Q4H PRN PRN Reason: Pain, severe (8-10) Last Admin: 03/23/18 07:06 Dose: 2 mg Nystatin (Nystatin Oral Susp) 5 ml PO QID [facility] Last Admin: 03/23/18 21:10 Dose: 5 ml Oxycodone HCl (Oxycontin Extended Release Tab) 20 mg PO Q12 [facility] Last Admin: 03/23/18 21:11 Dose: 20 mg Pantoprazole Sodium (Protonix Ec Tab) 40 mg PO ACB [facility] Last Admin: 03/23/18 08:38 Dose: 40 mg Polyethylene Glycol (Miralax) 17 gm PO BID [facility] Last Admin: 03/23/18 17:56 Dose: Not Given Tamsulosin HCl (Flomax) 0.4 mg PO DAILY [facility] Last Admin: 03/23/18 10:41 Dose: 0.4 mg - Labs Labs: 03/23/18 07:30 03/23/18 07:30 PT 16.2 SECONDS (9.4-12.5) H 03/11/18 20:55 INR 1.41 03/11/18 20:55 APTT 28.5 Seconds (25.1-36.5) 03/11/18 20:55 <Jorge Parnell - Last Filed: 03/23/18 22:08> Objective - Vital Signs/Intake and Output Vital Signs (last 24 hours): Temp Pulse Resp BP Pulse Ox 97.2 F L 75 20 87/55 L 97 03/23/18 21:25 03/23/18 21:25 03/23/18 21:25 03/23/18 21:25 03/23/18 21:25 Intake and Output: 03/23/18 03/24/18 18:59 06:59 Intake Total 586 960 Output Total 490 300 Balance 96 660 - Medications Medications: Current Medications Acetylcysteine (Acetylcysteine 20%) 4 ml IH BIDRESP [facility] Last Admin: 03/23/18 19:40 Dose: 4 ml Albuterol/Ipratropium (Duoneb 3 Mg/0.5 Mg (3 Ml) Ud) 3 ml IH Q2H PRN PRN Reason: Shortness of Breath Last Admin: 03/20/18 19:34 Dose: 3 ml Alprazolam (Xanax) 0.125 mg PO BID PRN; Protocol PRN Reason: Anxiety Stop: 03/24/18 18:01 Last Admin: 03/19/18 11:36 Dose: 0.125 mg Benzonatate (Tessalon Perles) 100 mg PO TID [facility] Last Admin: 03/23/18 17:56 Dose: 100 mg Budesonide (Pulmicort Respules) 0.5 mg IH [id number] [facility] Last Admin: 03/23/18 19:40 Dose: 0.5 mg Duloxetine HCl (Cymbalta) 60 mg PO DAILY [facility] Last Admin: 03/23/18 10:40 Dose: 60 mg Enoxaparin Sodium (Lovenox) 40 mg SC DAILY [facility]; Protocol Last Admin: 03/23/18 10:40 Dose: 40 mg Gabapentin (Neurontin) 300 mg PO TID [facility]; Protocol Last Admin: 03/23/18 17:55 Dose: 300 mg Guaifenesin (Robitussin) 100 mg PO Q4H PRN PRN Reason: Cough Last Admin: 03/20/18 21:09 Dose: 100 mg Sodium Chloride (Sodium Chloride 0.9%) 1,000 mls @ 80 mls/hr IV .[id number] [facility] Last Admin: 03/23/18 21:40 Dose: 80 mls/hr Levalbuterol HCl (Xopenex) 0.63 mg IH TIDRESP [facility] Last Admin: 03/23/18 19:40 Dose: 0.63 mg Methylprednisolone (Solu-Medrol) 20 mg IVP Q12 [facility] Last Admin: 03/23/18 21:10 Dose: 20 mg Metoprolol Succinate (Toprol Xl) 100 mg PO DAILY [facility] Last Admin: 03/23/18 10:41 Dose: Not Given Morphine Sulfate (Morphine) 2 mg IVP Q4H PRN PRN Reason: Pain, severe (8-10) Last Admin: 03/23/18 07:06 Dose: 2 mg Nystatin (Nystatin Oral Susp) 5 ml PO QID [facility] Last Admin: 03/23/18 21:10 Dose: 5 ml Oxycodone HCl (Oxycontin Extended Release Tab) 20 mg PO Q12 [facility] Last Admin: 03/23/18 10:40 Dose: 20 mg Pantoprazole Sodium (Protonix Ec Tab) 40 mg PO ACB [facility] Last Admin: 03/23/18 08:38 Dose: 40 mg Polyethylene Glycol (Miralax) 17 gm PO BID [facility] Last Admin: 03/23/18 17:56 Dose: Not Given Tamsulosin HCl (Flomax) 0.4 mg PO DAILY [facility] Last Admin: 03/23/18 10:41 Dose: 0.4 mg - Labs Labs: 03/23/18 07:30 03/23/18 07:30 PT 16.2 SECONDS (9.4-12.5) H 03/11/18 20:55 INR 1.41 03/11/18 20:55 APTT 28.5 Seconds (25.1-36.5) 03/11/18 20:55 Attending/Attestation - Attestation I have personally seen and examined this patient.: No I have fully participated in the care of the patient.: No I have reviewed all pertinent clinical information, including history, physical exam and plan: No
[2018-03-24] MEDS: Levalbuterol 0.63 MG/3 ML Inhal Soln UD IH SCH ×3 (07:17→19:38)
[2018-03-24] MEDS: Budesonide 0.5 mg/2 ml Inhal Susp UD IH SCH ×2 (07:17→19:38)
[2018-03-24] MEDS: Acetylcysteine 20% Inhal Soln (4ml) IH SCH ×2 (07:17→19:38)
[2018-03-24 07:27] LABS: GRAN % 88.7 % (50.0-68.0); HEMOGLOBIN 9.3 g/dL (14.0-18.0); LYMPH # 0.6 (1.2-3.4); LYMPH % 7.2 % (22.0-35.0); MEAN CELL VOLUME 86.3 fl (80.0-105.0); MEAN CORPUSCULAR HEMOGLOBIN 27.2 pg (25.0-35.0); MEAN CORPUSCULAR HGB CONC 31.5 g/dl (31.0-37.0); MEAN PLATELET VOLUME 11.7 fl (7.0-11.0); MONO # 0.3 (0.1-0.6); MONO % 4.1 % (1.0-6.0); RBC 3.42 10^6/uL (3.5-6.1); RED CELL DISTRIBUTION WIDTH 17.8 % (11.5-14.5); WHITE BLOOD COUNT 7.9 10^3/uL (4.5-11.0)
[2018-03-24 07:47] LABS: ALB/GLOB RATIO 0.9 (1.1-1.8); ALBUMIN 1.9 g/dL (3.0-4.8); ALT/SGPT 48 U/L (7-56); AST/SGOT 22 U/L (17-59); BLOOD UREA NITROGEN 33 mg/dL (7-21); CALCIUM 7.5 mg/dL (8.4-10.5); GFR NON-AFRICAN AMERICAN > 60
[2018-03-24] MEDS: Enoxaparin 40 mg Syringe SC SCH (09:06)
[2018-03-24] MEDS: guaiFENesin 100 mg/5 ml Syrup UD PO PRN (09:07)
[2018-03-24] MEDS: oxyCODONE 20 mg ER Tab (oxyCONTIN) PO SCH ×2 (09:07→22:35)
[2018-03-24] MEDS: Pantoprazole 40 mg EC Tab PO SCH (09:09)
[2018-03-24] MEDS: Nystatin 100,000 Units/ml Oral Susp 5 ml UD PO SCH ×4 (09:10→21:21)
[2018-03-24] MEDS: Metoprolol Succinate 100 mg XL Tab PO SCH (09:10)
[2018-03-24] MEDS: MethylPREDNISolone 40 mg Vial IVP SCH (09:10)
[2018-03-24] MEDS: Sodium Chloride 0.9% 1,000 ML IV SCH ×2 (09:13→22:37)
[2018-03-24] MEDS: POLYETHYLENE GLYCOL 3350 17 GM/Dose PACKET PO SCH ×2 (09:17→17:49)
--- NOTE | 2018-03-24 11:51 | CP.PCM.PN ---
<Paloma Rodriguez - Last Filed: 03/24/18 11:55> Subjective - Date & Time of Evaluation Date of Evaluation: 03/24/18 Time of Evaluation: 11:35 - Subjective Subjective: Paloma Rodriguez, PGY-1 Medicine Progress Note for Dr. Novak Pt was seen and examined this AM at bedside. Pt states that overnight he had an episode of tongue swelling which occured on the tip of his tongue while he was talking to his . He denies having eaten anything that he has a known allergy to and denies any respiratory compromise. Pt states that the swelling improved after 15 mins. He otherwise denies any acute overnight events. He states that today his breathing has improved from before. He also states that he is tolerating his diet and has no associated n/v. He also denies fevers, chills, headache, chest pain, cough, abd pain, n/v, c/d, or dysuria. Objective - Vital Signs/Intake and Output Vital Signs (last 24 hours): Temp Pulse Resp BP Pulse Ox 97.3 F L 83 16 111/68 95 03/24/18 05:42 03/24/18 09:10 03/24/18 09:00 03/24/18 09:00 03/24/18 05:42 Intake and Output: 03/24/18 03/24/18 06:59 18:59 Intake Total 1960 Output Total 780 Balance 1180 - Medications Medications: Current Medications Acetylcysteine (Acetylcysteine 20%) 4 ml IH BIDRESP DAVID Last Admin: 03/24/18 07:17 Dose: 4 ml Albuterol/Ipratropium (Duoneb 3 Mg/0.5 Mg (3 Ml) Ud) 3 ml IH Q2H PRN PRN Reason: Shortness of Breath Last Admin: 03/20/18 19:34 Dose: 3 ml Alprazolam (Xanax) 0.125 mg PO BID PRN; Protocol PRN Reason: Anxiety Stop: 03/24/18 18:01 Last Admin: 03/19/18 11:36 Dose: 0.125 mg Benzonatate (Tessalon Perles) 100 mg PO TID DAVID Last Admin: 03/24/18 09:10 Dose: 100 mg Budesonide (Pulmicort Respules) 0.5 mg IH [id number] [facility] Last Admin: 03/24/18 07:17 Dose: 0.5 mg Duloxetine HCl (Cymbalta) 60 mg PO DAILY [facility] Last Admin: 03/24/18 09:10 Dose: 60 mg Enoxaparin Sodium (Lovenox) 40 mg SC DAILY [facility]; Protocol Last Admin: 03/24/18 09:06 Dose: 40 mg Gabapentin (Neurontin) 300 mg PO TID [facility]; Protocol Last Admin: 03/24/18 09:10 Dose: 300 mg Guaifenesin (Robitussin) 100 mg PO Q4H PRN PRN Reason: Cough Last Admin: 03/24/18 09:07 Dose: 100 mg Sodium Chloride (Sodium Chloride 0.9%) 1,000 mls @ 80 mls/hr IV .[id number] [facility] Last Admin: 03/24/18 09:13 Dose: 80 mls/hr Levalbuterol HCl (Xopenex) 0.63 mg IH TIDRESP [facility] Last Admin: 03/24/18 07:17 Dose: 0.63 mg Methylprednisolone (Solu-Medrol) 20 mg IVP Q12 [facility] Last Admin: 03/24/18 09:10 Dose: 20 mg Metoprolol Succinate (Toprol Xl) 100 mg PO DAILY [facility] Last Admin: 03/24/18 09:10 Dose: 100 mg Morphine Sulfate (Morphine) 2 mg IVP Q4H PRN PRN Reason: Pain, severe (8-10) Nystatin (Nystatin Oral Susp) 5 ml PO QID [facility] Last Admin: 03/24/18 09:10 Dose: 5 ml Oxycodone HCl (Oxycontin Extended Release Tab) 20 mg PO Q12 [facility] Last Admin: 03/24/18 09:07 Dose: 20 mg Pantoprazole Sodium (Protonix Ec Tab) 40 mg PO ACB [facility] Last Admin: 03/24/18 09:09 Dose: 40 mg Polyethylene Glycol (Miralax) 17 gm PO BID [facility] Last Admin: 03/24/18 09:17 Dose: 17 gm Tamsulosin HCl (Flomax) 0.4 mg PO DAILY [facility] Last Admin: 03/24/18 09:10 Dose: 0.4 mg - Labs Labs: 03/24/18 06:10 03/24/18 06:10 PT 16.2 SECONDS (9.4-12.5) H 03/11/18 20:55 INR 1.41 03/11/18 20:55 APTT 28.5 Seconds (25.1-36.5) 03/11/18 20:55 - Constitutional Appears: Non-toxic, No Acute Distress, Cachectic - Head Exam Head Exam: ATRAUMATIC, NORMAL INSPECTION, NORMOCEPHALIC - Eye Exam Eye Exam: EOMI, Normal appearance, PERRL - Respiratory Exam Respiratory Exam: Decreased Breath Sounds (partciularly on the R compared to L, there is no tracheal deviation noted on exam. ), NORMAL BREATHING PATTERN. absent: Accessory Muscle Use, Rales, Rhonchi, Wheezes, Respiratory Distress, Stridor Additional comments: Chest tube is in place on the R. - Cardiovascular Exam Cardiovascular Exam: RRR, +S1, +S2. absent: Tachycardia, Gallop, Rubs, Murmur - GI/Abdominal Exam GI & Abdominal Exam: Soft, Normal Bowel Sounds. absent: Guarding, Rigid, Tenderness - Extremities Exam Extremities Exam: Normal Inspection. absent: Calf Tenderness, Pedal Edema, Tenderness - Back Exam Back Exam: NORMAL INSPECTION. 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 Pt was admitted to ICU for management and treatment of hypoxemic respiratory failure. Pt has recurrent pleural effusion, likely malignant, was now transferred to floors since pt was stable enough to be transferred out of ICU. Plan: 1) Right pleural effusion - improved -awaiting pleurx catheter placement this week, then dc planning -chest tube drained 650cc of sanguinous fluid today -CXR today shows increase in right pneumothorax compared to prior studies -CT Chest 03/19 shows decrease in right pleural effusion, multi-loculated hydropneumothorax, improved aeration of the right lung, multiple liver masses -blood culture negative for 5 days -completed doxy, merrem course -WBC wnl today, afebrile -solumedrol 20 q12, pulmicort, mucomyst, xopenex, tessalon perles -echo shows EF 53%, RVSP 61 -trops are indeterminate -IR, pulm, cardio consult 2) Elevated BUN - Improving -likely dehydration, continues to improve -patient has poor appetite, counseling given on increased food/fluid intake -continue NS to 80cc/hr 3) Urinary retention -refusing straight cath and borja -voided 620cc today, will monitor -continue flomax 4) Hx of stage 4 non small cell lung cancer -mets to the liver, lungs, bone -currently on immunotherapy -candidate for laser ablation of the right main stem with stent and tumor debulking -patient/family to make decision in regards to degree of aggressive treatment -heme/onc on consult - recs appreciated -psych on consult for depression 5) Mild hyperkalemia - resolved 6) Tachycardia-resolved -continue home toprol XL 100mg 7) Conjunctivitis - resolved -topical ciprofloxacin - completed 8) PPX/Diet -lovenox protonix -HHD Patient seen and case discussed with attending, Dr. Scarlet Rodriguez, PGY1 <Flor Novak - Last Filed: 03/24/18 17:02> Objective - Vital Signs/Intake and Output Vital Signs (last 24 hours): Temp Pulse Resp BP Pulse Ox 97.9 F 77 18 105/67 95 03/24/18 11:36 03/24/18 11:36 03/24/18 11:36 03/24/18 11:36 03/24/18 05:42 Intake and Output: 03/24/18 03/24/18 06:59 18:59 Intake Total 1960 Output Total 780 Balance 1180 - Medications Medications: Current Medications Acetylcysteine (Acetylcysteine 20%) 4 ml IH BIDRESP DAVID Last Admin: 03/24/18 07:17 Dose: 4 ml Albuterol/Ipratropium (Duoneb 3 Mg/0.5 Mg (3 Ml) Ud) 3 ml IH Q2H PRN PRN Reason: Shortness of Breath Last Admin: 03/20/18 19:34 Dose: 3 ml Alprazolam (Xanax) 0.125 mg PO BID PRN; Protocol PRN Reason: Anxiety Stop: 03/24/18 18:01 Last Admin: 03/19/18 11:36 Dose: 0.125 mg Benzonatate (Tessalon Perles) 100 mg PO TID [facility] Last Admin: 03/24/18 13:27 Dose: 100 mg Budesonide (Pulmicort Respules) 0.5 mg IH [id number] [facility] Last Admin: 03/24/18 07:17 Dose: 0.5 mg Duloxetine HCl (Cymbalta) 60 mg PO DAILY [facility] Last Admin: 03/24/18 09:10 Dose: 60 mg Enoxaparin Sodium (Lovenox) 40 mg SC DAILY [facility]; Protocol Last Admin: 03/24/18 09:06 Dose: 40 mg Gabapentin (Neurontin) 300 mg PO TID [facility]; Protocol Last Admin: 03/24/18 13:27 Dose: 300 mg Guaifenesin (Robitussin) 100 mg PO Q4H PRN PRN Reason: Cough Last Admin: 03/24/18 09:07 Dose: 100 mg Sodium Chloride (Sodium Chloride 0.9%) 1,000 mls @ 80 mls/hr IV .[id number] [facility] Last Admin: 03/24/18 09:13 Dose: 80 mls/hr Levalbuterol HCl (Xopenex) 0.63 mg IH TIDRESP [facility] Last Admin: 03/24/18 14:21 Dose: 0.63 mg Methylprednisolone (Solu-Medrol) 20 mg IVP DAILY [facility] Metoprolol Succinate (Toprol Xl) 100 mg PO DAILY [facility] Last Admin: 03/24/18 09:10 Dose: 100 mg Morphine Sulfate (Morphine) 2 mg IVP Q4H PRN PRN Reason: Pain, severe (8-10) Last Admin: 03/24/18 13:26 Dose: 2 mg Nystatin (Nystatin Oral Susp) 5 ml PO QID [facility] Last Admin: 03/24/18 13:27 Dose: 5 ml Oxycodone HCl (Oxycontin Extended Release Tab) 20 mg PO Q12 [facility] Last Admin: 03/24/18 09:07 Dose: 20 mg Pantoprazole Sodium (Protonix Ec Tab) 40 mg PO ACB [facility] Last Admin: 03/24/18 09:09 Dose: 40 mg Polyethylene Glycol (Miralax) 17 gm PO BID [facility] Last Admin: 03/24/18 09:17 Dose: 17 gm Tamsulosin HCl (Flomax) 0.4 mg PO DAILY [facility] Last Admin: 03/24/18 09:10 Dose: 0.4 mg - Labs Labs: 03/24/18 06:10 03/24/18 06:10 PT 16.2 SECONDS (9.4-12.5) H 03/11/18 20:55 INR 1.41 03/11/18 20:55 APTT 28.5 Seconds (25.1-36.5) 03/11/18 20:55 Attending/Attestation - Attestation I have personally seen and examined this patient.: Yes I have fully participated in the care of the patient.: Yes I have reviewed all pertinent clinical information, including history, physical exam and plan: Yes Notes (Text): 03/24/18 16:56 67 year old male with past medical history of adenocarcinoma of the lungs, hypertension and anxiety who presented with complaint of shortness of breath. He was found [address] right sided recurrent pleural effusion and possible pneumonia. Patient is s/p antibiotics therapy. He had thoracocentesis (03/13/18). Repeat CXR showed complete opacification of right side and chest tube was placed. Repeat CXR today shows no change in large right pneumothorax compared to yesterday. Heme/onc, pulmonary and IR are following. Plan is for pleurex catheter as per IR. PT is following and recommended DUONG. Patient is full code. Overall prognosis is guarded. Flor Novak MD Hospitalist.
--- NOTE | 2018-03-24 13:01 | CP.PCM.APN ---
Subjective - Date & Time of Evaluation Date of Evaluation: 03/24/18 Time of Evaluation: 09:00 - Subjective Subjective: pt seen at bedside , complains of tongue swelling and intermittent discomfort to chest tube site Review of Systems - Constitutional Constitutional: As Per HPI - Integumentary Additional comments: tongue swelling Objective - Vital Signs/Intake and Output Vital Signs (last 24 hours): Temp Pulse Resp BP Pulse Ox 97.9 F 77 18 105/67 95 03/24/18 11:36 03/24/18 11:36 03/24/18 11:36 03/24/18 11:36 03/24/18 05:42 Intake and Output: 03/24/18 03/24/18 06:59 18:59 Intake Total 1960 Output Total 780 Balance 1180 - Medications Medications: Current Medications Acetylcysteine (Acetylcysteine 20%) 4 ml IH BIDRESP [facility] Last Admin: 03/24/18 07:17 Dose: 4 ml Albuterol/Ipratropium (Duoneb 3 Mg/0.5 Mg (3 Ml) Ud) 3 ml IH Q2H PRN PRN Reason: Shortness of Breath Last Admin: 03/20/18 19:34 Dose: 3 ml Alprazolam (Xanax) 0.125 mg PO BID PRN; Protocol PRN Reason: Anxiety Stop: 03/24/18 18:01 Last Admin: 03/19/18 11:36 Dose: 0.125 mg Benzonatate (Tessalon Perles) 100 mg PO TID [facility] Last Admin: 03/24/18 09:10 Dose: 100 mg Budesonide (Pulmicort Respules) 0.5 mg IH [id number] [facility] Last Admin: 03/24/18 07:17 Dose: 0.5 mg Duloxetine HCl (Cymbalta) 60 mg PO DAILY [facility] Last Admin: 03/24/18 09:10 Dose: 60 mg Enoxaparin Sodium (Lovenox) 40 mg SC DAILY [facility]; Protocol Last Admin: 03/24/18 09:06 Dose: 40 mg Gabapentin (Neurontin) 300 mg PO TID [facility]; Protocol Last Admin: 03/24/18 09:10 Dose: 300 mg Guaifenesin (Robitussin) 100 mg PO Q4H PRN PRN Reason: Cough Last Admin: 03/24/18 09:07 Dose: 100 mg Sodium Chloride (Sodium Chloride 0.9%) 1,000 mls @ 80 mls/hr IV .[id number] [facility] Last Admin: 03/24/18 09:13 Dose: 80 mls/hr Levalbuterol HCl (Xopenex) 0.63 mg IH TIDRESP [facility] Last Admin: 03/24/18 07:17 Dose: 0.63 mg Methylprednisolone (Solu-Medrol) 20 mg IVP Q12 [facility] Last Admin: 03/24/18 09:10 Dose: 20 mg Metoprolol Succinate (Toprol Xl) 100 mg PO DAILY [facility] Last Admin: 03/24/18 09:10 Dose: 100 mg Morphine Sulfate (Morphine) 2 mg IVP Q4H PRN PRN Reason: Pain, severe (8-10) Nystatin (Nystatin Oral Susp) 5 ml PO QID [facility] Last Admin: 03/24/18 09:10 Dose: 5 ml Oxycodone HCl (Oxycontin Extended Release Tab) 20 mg PO Q12 [facility] Last Admin: 03/24/18 09:07 Dose: 20 mg Pantoprazole Sodium (Protonix Ec Tab) 40 mg PO ACB [facility] Last Admin: 03/24/18 09:09 Dose: 40 mg Polyethylene Glycol (Miralax) 17 gm PO BID [facility] Last Admin: 03/24/18 09:17 Dose: 17 gm Tamsulosin HCl (Flomax) 0.4 mg PO DAILY [facility] Last Admin: 03/24/18 09:10 Dose: 0.4 mg - Labs Labs: 03/24/18 06:10 03/24/18 06:10 PT 16.2 SECONDS (9.4-12.5) H 03/11/18 20:55 INR 1.41 03/11/18 20:55 APTT 28.5 Seconds (25.1-36.5) 03/11/18 20:55 - Constitutional Appears: Non-toxic, No Acute Distress - Head Exam Head Exam: ATRAUMATIC, NORMAL INSPECTION - Eye Exam Eye Exam: EOMI - ENT Exam ENT Exam: Mucous Membranes Moist - Neck Exam Neck Exam: Full ROM - Respiratory Exam Respiratory Exam: Decreased Breath Sounds, NORMAL BREATHING PATTERN - Cardiovascular Exam Cardiovascular Exam: +S1, +S2 - GI/Abdominal Exam GI & Abdominal Exam: Normal Bowel Sounds - Extremities Exam Extremities Exam: Normal Capillary Refill - Neurological Exam Neurological Exam: Alert, Awake Assessment and Plan - Assessment and Plan (Free Text) Plan: Lung cancer (Acute) Pneumonia (Acute) Sepsis (Acute) Impressions Upper Extremity Ultrasound 03/22/18 11:48 IMPRESSION: 1. No sonographic evidence for deep venous thrombosis in the visualized segments of the left upper extremity. Impressions Thoracentesis Ultrasound 03/13/18 09:39 IMPRESSION: 1. Ultrasound guided right thoracentesis. 1900 cc of bloody fluid were aspirated. A cytology specimen was sent Chest CT 03/19/18 10:24 IMPRESSION: Status post chest tube insertion right pleural space. Commensurate decrease in right pleural effusion. Multiloculated hydro pneumothorax. Improved aeration of the right lung. No evidence of complete obstruction of the segments of the right tracheobronchial tree. There is extrinsic impression, narrowing of central components of the bronchial tree on the right. This is difficult to separate from extensive adenopathy. 1, possibly several masses in the dome of the liver the largest 4 x 4.2 cm. Interventional Vascular Procedure 03/20/18 10:09 IMPRESSION: Repositioning and change of right pigtail chest tube as described above Upper Extremity Ultrasound 03/22/18 11:48 IMPRESSION: 1. No sonographic evidence for deep venous thrombosis in the visualized segments of the left upper extremity. Laboratory Results WBC 7.9 10^3/uL (4.5-11.0) 03/24/18 06:10 RBC 3.42 10^6/uL (3.5-6.1) L 03/24/18 06:10 Hgb 9.3 g/dL (14.0-18.0) L 03/24/18 06:10 Hct 29.5 % (42.0-52.0) L 03/24/18 06:10 MCV 86.3 fl (80.0-105.0) 03/24/18 06:10 MCH 27.2 pg (25.0-35.0) 03/24/18 06:10 MCHC 31.5 g/dl (31.0-37.0) 03/24/18 06:10 RDW 17.8 % (11.5-14.5) H 03/24/18 06:10 Plt Count 117 10^3/uL (120.0-450.0) L 03/24/18 06:10 MPV 11.7 fl (7.0-11.0) H 03/24/18 06:10 Gran % 88.7 % (50.0-68.0) H 03/24/18 06:10 Lymph % (Auto) 7.2 % (22.0-35.0) L 03/24/18 06:10 [place] % (Auto) 4.1 % (1.0-6.0) 03/24/18 06:10 Eos % (Auto) 0.0 % (1.5-5.0) L 03/24/18 06:10 Baso % (Auto) 0.0 % (0.0-3.0) 03/24/18 06:10 Gran # 7.00 (1.4-6.5) H 03/24/18 06:10 Lymph # (Auto) 0.6 (1.2-3.4) L 03/24/18 06:10 [place] # (Auto) 0.3 (0.1-0.6) 03/24/18 06:10 Eos # (Auto) 0.0 (0.0-0.7) 03/24/18 06:10 Baso # (Auto) 0.00 K/mm3 (0.0-2.0) 03/24/18 06:10 Neutrophils % (Manual) 96 % (50.0-70.0) H 03/21/18 06:00 Band Neutrophils % 6 % (0-2) H 03/12/18 05:20 Lymphocytes % (Manual) 2 % (22.0-35.0) L 03/21/18 06:00 Monocytes % (Manual) 2 % (1.0-6.0) 03/21/18 06:00 Eosinophils % (Manual) 1 % (0.0-3.0) 03/12/18 05:20 Toxic Granulation Slight 03/12/18 05:20 Platelet Evaluation Normal (NORMAL) 03/21/18 06:00 Poikilocytosis (manual Slight 03/12/18 05:20 Anisocytosis (manual) Slight 03/12/18 05:20 PT 16.2 SECONDS (9.4-12.5) H 03/11/18 20:55 INR 1.41 03/11/18 20:55 APTT 28.5 Seconds (25.1-36.5) 03/11/18 20:55 pCO2 50 mm/Hg (35-45) H 03/18/18 06:15 pO2 124.0 mm/Hg (80-100) H 03/18/18 06:15 HCO3 30.3 mmol/L (21-28) H 03/18/18 06:15 ABG pH 7.39 (7.35-7.45) 03/18/18 06:15 ABG Total CO2 31.8 mmol.L (22-28) H 03/18/18 06:15 ABG O2 Saturation 99.3 % (95-98) H 03/18/18 06:15 ABG O2 Content 13.7 ML/dl (15-23) L 03/18/18 06:15 ABG Base Excess 4.5 mmol/L (-2.0-3.0) H 03/18/18 06:15 ABG Hemoglobin 9.9 g/dL (11.7-17.4) L 03/18/18 06:15 ABG Carboxyhemoglobin 1.6 % (0.5-1.5) H 03/18/18 06:15 POC ABG HHb (Measured) 0.7 % (0-5) 03/18/18 06:15 ABG Methemoglobin 0.9 % (0.0-3.0) 03/18/18 06:15 ABG O2 Capacity 13.8 mL/dl (16-24) L 03/18/18 06:15 ABG Potassium 3.7 mmol/L (3.6-5.2) 03/12/18 06:00 VBG pH 7.30 (7.32-7.43) L 03/12/18 01:30 VBG pCO2 57.0 (40-60) 03/12/18 01:30 VBG HCO3 28.0 mmol/l (21-28) 03/12/18 01:30 VBG Total CO2 29.7 mmol.L (22-28) H 03/12/18 01:30 VBG O2 Sat (Calc) 64.6 % (40-65) 03/12/18 01:30 VBG Base Excess 0.4 mmol/L (0.0-2.0) 03/12/18 01:30 VBG Potassium 4.4 mmol/L (3.6-5.2) 03/12/18 01:30 Hgb O2 Saturation 96.8 % (95.0-98.0) 03/18/18 06:15 Sodium 141.0 mmol/L (132-148) 03/12/18 06:00 Chloride 107.0 mmol/L (98-107) 03/12/18 06:00 Glucose 119 mg/dl (75-110) H 03/12/18 06:00 Lactate 1.4 mmol/L (0.7-2.1) 03/12/18 06:00 FiO2 32.0 % 03/18/18 06:15 Pressure Support 6 03/12/18 06:00 Inspiratory BiPAP 12 03/12/18 06:00 Sodium 133 mmol/L (132-148) 03/24/18 06:10 Potassium 4.6 mmol/L (3.6-5.0) 03/24/18 06:10 Chloride 105 mmol/L (98-107) 03/24/18 06:10 Carbon Dioxide 27 mmol/L (21-33) 03/24/18 06:10 Anion Gap 6 (10-20) L 03/24/18 06:10 BUN 33 mg/dL (7-21) H 03/24/18 06:10 Creatinine 0.9 mg/dl (0.8-1.5) 03/24/18 06:10 Est GFR ( Amer) > 60 03/24/18 06:10 Est GFR (Non-Af Amer) > 60 03/24/18 06:10 POC Glucose (mg/dL) 192 mg/dL (65-110) H 03/22/18 02:50 Random Glucose 95 mg/dL (70-110) 03/24/18 06:10 Hemoglobin A1c 5.7 % (4.2-6.5) 03/12/18 10:30 Calcium 7.5 mg/dL (8.4-10.5) L 03/24/18 06:10 Phosphorus 3.7 mg/dL (2.5-4.5) 03/23/18 07:30 Magnesium 1.9 mg/dL (1.7-2.2) 03/23/18 07:30 Total Bilirubin 0.8 mg/dL (0.2-1.3) 03/24/18 06:10 AST 22 U/L (17-59) 03/24/18 06:10 ALT 48 U/L (7-56) 03/24/18 06:10 Alkaline Phosphatase 84 U/L (38-126) 03/24/18 06:10 Lactate Dehydrogenase 385 U/L (333-699) 03/17/18 10:50 Total Creatine Kinase < 20 U/L (35-230) L 03/11/18 20:55 Troponin I 0.05 ng/mL 03/12/18 15:15 NT-Pro-B Natriuret Pep 6550 pg/mL (0-450) H 03/11/18 20:55 Total Protein 3.9 g/dL (5.8-8.3) L 03/24/18 06:10 Albumin 1.9 g/dL (3.0-4.8) L 03/24/18 06:10 Globulin 2.0 gm/dL 03/24/18 06:10 Albumin/Globulin Ratio 0.9 (1.1-1.8) L 03/24/18 06:10 Procalcitonin 0.19 NG/ML (0.19-0.49) 03/18/18 06:00 Arterial Blood Potassium 3.7 mmol/L (3.6-5.2) 03/12/18 06:00 Venous Blood Potassium 4.4 mmol/L (3.6-5.2) 03/12/18 01:30 Urine Color Light brown (YELLOW) 03/12/18 09:00 Urine Appearance Cloudy (CLEAR) 03/12/18 09:00 Urine pH 5.0 (4.7-8.0) 03/12/18 09:00 Ur Specific Elizabeth >= 1.030 (1.005-1.035) 03/12/18 09:00 Urine Protein 30 mg/dL (<30 mg/dL) H 03/12/18 09:00 Urine Glucose (UA) Negative mg/dL (NEGATIVE) 03/12/18 09:00 Urine Ketones Trace mg/dL (NEGATIVE) H 03/12/18 09:00 Urine Blood Large (NEGATIVE) H 03/12/18 09:00 Urine Nitrate Negative (NEGATIVE) 03/12/18 09:00 Urine Bilirubin Moderate (NEGATIVE) H 03/12/18 09:00 Urine Urobilinogen 1.0 E.U./dL (<1 E.U./dL) H 03/12/18 09:00 Ur Leukocyte Esterase Trace Good/uL (NEGATIVE) H 03/12/18 09:00 Urine RBC Tntc /hpf (0-2) H 03/12/18 09:00 Urine WBC 15 - 20 /hpf (0-6) H 03/12/18 09:00 Ur Epithelial Cells 0 - 2 /hpf (0-5) 03/12/18 09:00 Amorphous Sediment Moderate /hpf (NONE) 03/12/18 09:00 Urine Bacteria Many /hpf (NONE) 03/12/18 09:00 Fine Granular Casts 0 - 2 /hpf (NONE) 03/12/18 09:00 Coarse Granular Casts Small /hpf (NONE) 03/12/18 09:00 Urine Other Uyeast /hpf 03/12/18 09:00 Ur L.pneumophila Ag Negative (NEGATIVE) 03/13/18 00:00 67 yr old male with pmh sif for stage Iv lung ca with mets to liver and bone admitted to the ICU for mgmt after presenting to the ED with worsening SOB and hypoxic resp failure, sepsis and new onset chf , right lung white out and pleural effusion pt s/p thoracentesis and right chest tube with cardiac, renal, pul and oncology consultations #resp failure- weaned off bipap, iv steriods, pul recs noted #right pleural effusion s/p thoracentesis 1.9 L removed , right chest tube with output down to 160ml in 24 hrs last cxr 03/23- increase in Right pneumothorax , progressive consolidative changes in right lobe serial cxrs - today results pending, will follow monitor output of chest tube ? convert to pleurax cath when output stable/ right lung re-expands #sepsis/right lung pne- Iv antibiotic, persistent leukocytosis ID recs noted #stage IV metastatic ca- decision on whether to proceed with bronchial stenting and tumor debulking pending ( @[facility]?) ?systemic treatment oncology note rev'd and recommendations noted pt and family to decide extent of interventions with current prognosis discussed with medical team and gela dc plan of kirstin per p.t recs vs home with when medically stable will continue to follow clinically Nina Lyons BPCI/TIC - BPCIA/TIC Educated pt/family on BPCIA/CIR/Med to Bed Programs: Yes Flyers given, including CMS Beneficiary letter: Yes Pt/family verbalized understanding & agreed to program: Yes
--- NOTE | 2018-03-24 13:22 | RAD ---
Date of service: 03/24/2018 HISTORY: chest tube, hx lung cancer COMPARISON: 03/23/2018 FINDINGS: LUNGS: There is no change in the large right pneumothorax. The pigtail chest tube is seen at the right lung base. PLEURA: As above CARDIOVASCULAR: No aortic atherosclerotic calcification present. Normal cardiac size. No pulmonary vascular congestion. OSSEOUS STRUCTURES: No significant abnormalities. VISUALIZED UPPER ABDOMEN: Normal. OTHER FINDINGS: None. IMPRESSION: There is no change in the large right pneumothorax. The pigtail chest tube is seen at the right lung base.
[2018-03-24] MEDS: Morphine 2 mg/ml ISec IVP PRN (13:26)
--- NOTE | 2018-03-24 13:30 | CP.PCM.PN ---
<Maxim Barfield - Last Filed: 03/24/18 13:27> Subjective - Date & Time of Evaluation Date of Evaluation: 03/24/18 Time of Evaluation: 07:00 - Subjective Subjective: ID Progress Note Patient seen and examined. Patient admits to improvement in breathing. Denies chest pain, shortness of breath, nausea, vomiting, diarrhea. Objective - Vital Signs/Intake and Output Vital Signs (last 24 hours): Temp Pulse Resp BP Pulse Ox 97.9 F 77 18 105/67 95 03/24/18 11:36 03/24/18 11:36 03/24/18 11:36 03/24/18 11:36 03/24/18 05:42 Intake and Output: 03/24/18 03/24/18 06:59 18:59 Intake Total 1960 Output Total 780 Balance 1180 - Medications Medications: Current Medications Acetylcysteine (Acetylcysteine 20%) 4 ml IH BIDRESP DAVID Last Admin: 03/24/18 07:17 Dose: 4 ml Albuterol/Ipratropium (Duoneb 3 Mg/0.5 Mg (3 Ml) Ud) 3 ml IH Q2H PRN PRN Reason: Shortness of Breath Last Admin: 03/20/18 19:34 Dose: 3 ml Alprazolam (Xanax) 0.125 mg PO BID PRN; Protocol PRN Reason: Anxiety Stop: 03/24/18 18:01 Last Admin: 03/19/18 11:36 Dose: 0.125 mg Benzonatate (Tessalon Perles) 100 mg PO TID DAVID Last Admin: 03/24/18 09:10 Dose: 100 mg Budesonide (Pulmicort Respules) 0.5 mg IH [id number] [facility] Last Admin: 03/24/18 07:17 Dose: 0.5 mg Duloxetine HCl (Cymbalta) 60 mg PO DAILY DAVID Last Admin: 03/24/18 09:10 Dose: 60 mg Enoxaparin Sodium (Lovenox) 40 mg SC DAILY [facility]; Protocol Last Admin: 03/24/18 09:06 Dose: 40 mg Gabapentin (Neurontin) 300 mg PO TID [facility]; Protocol Last Admin: 03/24/18 09:10 Dose: 300 mg Guaifenesin (Robitussin) 100 mg PO Q4H PRN PRN Reason: Cough Last Admin: 03/24/18 09:07 Dose: 100 mg Sodium Chloride (Sodium Chloride 0.9%) 1,000 mls @ 80 mls/hr IV .[id number] [facility] Last Admin: 03/24/18 09:13 Dose: 80 mls/hr Levalbuterol HCl (Xopenex) 0.63 mg IH TIDRESP [facility] Last Admin: 03/24/18 07:17 Dose: 0.63 mg Methylprednisolone (Solu-Medrol) 20 mg IVP DAILY [facility] Metoprolol Succinate (Toprol Xl) 100 mg PO DAILY [facility] Last Admin: 03/24/18 09:10 Dose: 100 mg Morphine Sulfate (Morphine) 2 mg IVP Q4H PRN PRN Reason: Pain, severe (8-10) Nystatin (Nystatin Oral Susp) 5 ml PO QID [facility] Last Admin: 03/24/18 09:10 Dose: 5 ml Oxycodone HCl (Oxycontin Extended Release Tab) 20 mg PO Q12 [facility] Last Admin: 03/24/18 09:07 Dose: 20 mg Pantoprazole Sodium (Protonix Ec Tab) 40 mg PO ACB [facility] Last Admin: 03/24/18 09:09 Dose: 40 mg Polyethylene Glycol (Miralax) 17 gm PO BID [facility] Last Admin: 03/24/18 09:17 Dose: 17 gm Tamsulosin HCl (Flomax) 0.4 mg PO DAILY [facility] Last Admin: 03/24/18 09:10 Dose: 0.4 mg - Labs Labs: 03/24/18 06:10 03/24/18 06:10 PT 16.2 SECONDS (9.4-12.5) H 03/11/18 20:55 INR 1.41 03/11/18 20:55 APTT 28.5 Seconds (25.1-36.5) 03/11/18 20:55 - Constitutional Appears: Non-toxic, No Acute Distress - Head Exam Head Exam: ATRAUMATIC, NORMAL INSPECTION, NORMOCEPHALIC - ENT Exam ENT Exam: Mucous Membranes Moist - Respiratory Exam Respiratory Exam: Decreased Breath Sounds, NORMAL BREATHING PATTERN Additional comments: Right chest tube in place - Cardiovascular Exam Cardiovascular Exam: RRR, +S1, +S2 - GI/Abdominal Exam GI & Abdominal Exam: Soft, Normal Bowel Sounds. absent: Tenderness - Extremities Exam Extremities Exam: Normal Inspection. absent: Pedal Edema - Neurological Exam Neurological Exam: Alert, Awake, CN II-XII Intact - Psychiatric Exam Psychiatric exam: Normal Affect, Normal Mood - Skin Skin Exam: Intact, Normal Color, Warm Assessment and Plan - Assessment and Plan (Free Text) Plan: Right sided hospital acquired pneumonia S/p right chest tube placement S/p right-sided thoracentesis Hx of stage IV lung cancer with mets to bone and liver Hx of COPD Hx of HTN Hx of Tobacco use Hx of Alcohol use Plan S/p Doxycycline and Merrem Continue to monitor off of antibiotics Blood and urine cultures negative Chest tube in place. Patient will have pleurex catheter placed later this week Continue current medical management Lico, PGY-3 <Dominic Jay S - Last Filed: 03/24/18 17:44> Objective - Vital Signs/Intake and Output Vital Signs (last 24 hours): Temp Pulse Resp BP Pulse Ox 97.9 F 77 18 105/67 95 03/24/18 11:36 03/24/18 11:36 03/24/18 11:36 03/24/18 11:36 03/24/18 05:42 Intake and Output: 03/24/18 03/24/18 06:59 18:59 Intake Total 1960 Output Total 780 Balance 1180 - Medications Medications: Current Medications Acetylcysteine (Acetylcysteine 20%) 4 ml IH BIDRESP [facility] Last Admin: 03/24/18 07:17 Dose: 4 ml Albuterol/Ipratropium (Duoneb 3 Mg/0.5 Mg (3 Ml) Ud) 3 ml IH Q2H PRN PRN Reason: Shortness of Breath Last Admin: 03/20/18 19:34 Dose: 3 ml Alprazolam (Xanax) 0.125 mg PO BID PRN; Protocol PRN Reason: Anxiety Stop: 03/24/18 18:01 Last Admin: 03/19/18 11:36 Dose: 0.125 mg Benzonatate (Tessalon Perles) 100 mg PO TID [facility] Last Admin: 03/24/18 13:27 Dose: 100 mg Budesonide (Pulmicort Respules) 0.5 mg IH [id number] [facility] Last Admin: 03/24/18 07:17 Dose: 0.5 mg Duloxetine HCl (Cymbalta) 60 mg PO DAILY [facility] Last Admin: 03/24/18 09:10 Dose: 60 mg Enoxaparin Sodium (Lovenox) 40 mg SC DAILY [facility]; Protocol Last Admin: 03/24/18 09:06 Dose: 40 mg Gabapentin (Neurontin) 300 mg PO TID [facility]; Protocol Last Admin: 03/24/18 13:27 Dose: 300 mg Guaifenesin (Robitussin) 100 mg PO Q4H PRN PRN Reason: Cough Last Admin: 03/24/18 09:07 Dose: 100 mg Sodium Chloride (Sodium Chloride 0.9%) 1,000 mls @ 80 mls/hr IV .[id number] [facility] Last Admin: 03/24/18 09:13 Dose: 80 mls/hr Levalbuterol HCl (Xopenex) 0.63 mg IH TIDRESP [facility] Last Admin: 03/24/18 14:21 Dose: 0.63 mg Methylprednisolone (Solu-Medrol) 20 mg IVP DAILY [facility] Metoprolol Succinate (Toprol Xl) 100 mg PO DAILY [facility] Last Admin: 03/24/18 09:10 Dose: 100 mg Morphine Sulfate (Morphine) 2 mg IVP Q4H PRN PRN Reason: Pain, severe (8-10) Last Admin: 03/24/18 13:26 Dose: 2 mg Nystatin (Nystatin Oral Susp) 5 ml PO QID [facility] Last Admin: 03/24/18 13:27 Dose: 5 ml Oxycodone HCl (Oxycontin Extended Release Tab) 20 mg PO Q12 [facility] Last Admin: 03/24/18 09:07 Dose: 20 mg Pantoprazole Sodium (Protonix Ec Tab) 40 mg PO ACB [facility] Last Admin: 03/24/18 09:09 Dose: 40 mg Polyethylene Glycol (Miralax) 17 gm PO BID [facility] Last Admin: 03/24/18 09:17 Dose: 17 gm Tamsulosin HCl (Flomax) 0.4 mg PO DAILY [facility] Last Admin: 03/24/18 09:10 Dose: 0.4 mg - Labs Labs: 03/24/18 06:10 03/24/18 06:10 PT 16.2 SECONDS (9.4-12.5) H 03/11/18 20:55 INR 1.41 03/11/18 20:55 APTT 28.5 Seconds (25.1-36.5) 03/11/18 20:55 Assessment and Plan - Assessment and Plan (Free Text) Plan: Infectious diseases Attending Physician Attestation Patient seen and examined, discussed with medical coding technician. I have reviewed the patient's history of present illness, past medical, social, personal and family histories, pertinent physical exam findings, course so far in this hospital admission, pertinent laboratory and imaging results. I agree with the above findings, assessment and plan. In addition, continue to monitor off antibiotics - patient is S/P treatment for right sided HAP. Also S/P right chest tube placement and it has been removed. Overall prognosis is poor. WBC count elevation may be due to cancer and will also continue to trend.
--- NOTE | 2018-03-24 13:57 | PN ---
DATE: 03/24/2018 PULMONARY PROGRESS NOTE REFERRING PHYSICIAN: Dr. Novak. SUBJECTIVE: The patient is sitting up in bed. No acute distress. No overnight events reported. Reports some discomfort to chest tube site. No headache, rhinitis, cough, shortness of breath, chest pain, abdominal pain, nausea, vomiting, diarrhea, leg pain or leg swelling reported. OBJECTIVE: GENERAL: No acute distress. VITAL SIGNS: Blood pressure 105/67, pulse 77, temperature 97.8, and oxygen saturation 95%. HEENT: Moist mucous membranes. NECK: Supple. No JVD. LUNGS: Decreased breath sounds on the right. Chest tube in place on the right. Few rhonchi to the left. CARDIOVASCULAR: S1 and S2 audible. ABDOMEN: Soft and nontender. No distention. No organomegaly. EXTREMITIES: No bilateral lower extremity edema. NEUROLOGIC: Awake, alert, and verbal. Follows commands. MEDICATIONS: Reviewed. Mucomyst 4 mL inhalation twice a day, DuoNeb 3 mL inhalation every 2 hours p.r.n, Xanax 0.125 mg twice a day p.r.n., Tessalon Perles 100 mg p.o. 3 times a day, Pulmicort 0.5 mg inhalation every 12 hours, Cymbalta 60 mg daily, Lovenox 40 mg subcutaneously daily, gabapentin 300 mg 3 times a day, Robitussin 100 mg every 4 hours p.r.n., Xopenex 0.63 mg inhalation 3 times a day, Solu-Medrol 20 mg IV push every 12 hours, Toprol XL 100 mg p.o. daily, morphine 2 mg IV push every 4 hours p.r.n., 5 mL p.o. 4 times a day, OxyContin extended release 20 mg every 12 hours, Protonix 40 mg a.c., MiraLax 17 g twice a day, sodium chloride 0.9% 1000 mL at 80 mL per hour and Flomax 0.4 mg p.o. daily. LABORATORY DATA: Reviewed. WBC 7.9, RBC 3.42, hemoglobin 9.3, hematocrit 29.5 and platelets 117. Sodium 133, potassium 4.6, chloride 105, carbon dioxide 27, anion gap 6, BUN 33, creatinine 0.9, GFR greater than 60, random glucose 97, calcium 7.5, total bilirubin 0.8, AST 22, ALT 48, alkaline phosphatase 84, total protein 3.9, albumin 1.9, globulin 2 and albumin-globulin ratio 0.9. Chest x-ray report pending for today. Chest x-ray yesterday shows increase in the right pneumothorax compared to prior studies. IMPRESSION AND PLAN: Metastatic stage IV non-small cell carcinoma of the lung, pleural effusion, status post thoracentesis and status post insertion of chest tube, hypertension, history of alcohol abuse, anxiety disorder, gastroesophageal reflux disease. Continue to monitor chest tube output. Oncology followup. The patient is pending PleurX catheter after chest tube is removed. Continue inhaled bronchodilators, gastric prophylaxis, deep venous thrombosis prophylaxis, head of bed elevated at 45 degrees. We will decrease Solu-Medrol to 20 mg daily. This patient was seen and examined with Dr. Read. Discussed assessment and plan as described above. Thank you for this consult and we will follow with you. Mark Luke APN Fred Read MD
--- NOTE | 2018-03-24 15:27 | CP.PCM.PN ---
Subjective - Date & Time of Evaluation Date of Evaluation: 03/24/18 Time of Evaluation: 08:00 - Subjective Subjective: PGY-2 heme/onc progress note for Dr Vaughn Patient had an episode of hypotension yesterday evening. Patient complained of tip of tongue being swollen today. Stated he felt "okay". Stated he hasn't worked with physical therapy because "they came at the wrong times". Tolerating diet. Denied pain, sob, cp, f/c, n/v. Objective - Vital Signs/Intake and Output Vital Signs (last 24 hours): Temp Pulse Resp BP Pulse Ox 97.9 F 77 18 105/67 95 03/24/18 11:36 03/24/18 11:36 03/24/18 11:36 03/24/18 11:36 03/24/18 05:42 Intake and Output: 03/24/18 03/24/18 06:59 18:59 Intake Total 1960 Output Total 780 Balance 1180 - Medications Medications: Current Medications Acetylcysteine (Acetylcysteine 20%) 4 ml IH BIDRESP [facility] Last Admin: 03/24/18 07:17 Dose: 4 ml Albuterol/Ipratropium (Duoneb 3 Mg/0.5 Mg (3 Ml) Ud) 3 ml IH Q2H PRN PRN Reason: Shortness of Breath Last Admin: 03/20/18 19:34 Dose: 3 ml Alprazolam (Xanax) 0.125 mg PO BID PRN; Protocol PRN Reason: Anxiety Stop: 03/24/18 18:01 Last Admin: 03/19/18 11:36 Dose: 0.125 mg Benzonatate (Tessalon Perles) 100 mg PO TID [facility] Last Admin: 03/24/18 13:27 Dose: 100 mg Budesonide (Pulmicort Respules) 0.5 mg IH [id number] [facility] Last Admin: 03/24/18 07:17 Dose: 0.5 mg Duloxetine HCl (Cymbalta) 60 mg PO DAILY [facility] Last Admin: 03/24/18 09:10 Dose: 60 mg Enoxaparin Sodium (Lovenox) 40 mg SC DAILY [facility]; Protocol Last Admin: 03/24/18 09:06 Dose: 40 mg Gabapentin (Neurontin) 300 mg PO TID [facility]; Protocol Last Admin: 03/24/18 13:27 Dose: 300 mg Guaifenesin (Robitussin) 100 mg PO Q4H PRN PRN Reason: Cough Last Admin: 03/24/18 09:07 Dose: 100 mg Sodium Chloride (Sodium Chloride 0.9%) 1,000 mls @ 80 mls/hr IV .[id number] [facility] Last Admin: 03/24/18 09:13 Dose: 80 mls/hr Levalbuterol HCl (Xopenex) 0.63 mg IH TIDRESP [facility] Last Admin: 03/24/18 14:21 Dose: 0.63 mg Methylprednisolone (Solu-Medrol) 20 mg IVP DAILY [facility] Metoprolol Succinate (Toprol Xl) 100 mg PO DAILY [facility] Last Admin: 03/24/18 09:10 Dose: 100 mg Morphine Sulfate (Morphine) 2 mg IVP Q4H PRN PRN Reason: Pain, severe (8-10) Last Admin: 03/24/18 13:26 Dose: 2 mg Nystatin (Nystatin Oral Susp) 5 ml PO QID [facility] Last Admin: 03/24/18 13:27 Dose: 5 ml Oxycodone HCl (Oxycontin Extended Release Tab) 20 mg PO Q12 [facility] Last Admin: 03/24/18 09:07 Dose: 20 mg Pantoprazole Sodium (Protonix Ec Tab) 40 mg PO ACB [facility] Last Admin: 03/24/18 09:09 Dose: 40 mg Polyethylene Glycol (Miralax) 17 gm PO BID [facility] Last Admin: 03/24/18 09:17 Dose: 17 gm Tamsulosin HCl (Flomax) 0.4 mg PO DAILY [facility] Last Admin: 03/24/18 09:10 Dose: 0.4 mg - Labs Labs: 03/24/18 06:10 03/24/18 06:10 PT 16.2 SECONDS (9.4-12.5) H 03/11/18 20:55 INR 1.41 03/11/18 20:55 APTT 28.5 Seconds (25.1-36.5) 03/11/18 20:55 - Constitutional Appears: Non-toxic, No Acute Distress, Chronically Ill - Head Exam Head Exam: ATRAUMATIC, NORMAL INSPECTION - Eye Exam Eye Exam: EOMI, Normal appearance, PERRL - ENT Exam ENT Exam: Mucous Membranes Moist - Neck Exam Neck Exam: Full ROM - Respiratory Exam Respiratory Exam: Decreased Breath Sounds, Rales, NORMAL BREATHING PATTERN - Cardiovascular Exam Cardiovascular Exam: REGULAR RHYTHM, +S1, +S2. absent: Bradycardia, Tachycardia, Murmur - GI/Abdominal Exam GI & Abdominal Exam: Soft, Normal Bowel Sounds. absent: Tenderness - Extremities Exam Extremities Exam: Full ROM, Normal Capillary Refill, Normal Inspection - Neurological Exam Neurological Exam: Alert, Awake - Psychiatric Exam Psychiatric exam: Normal Affect, Normal Mood - Skin Skin Exam: Dry, Intact, Normal Color, Warm Assessment and Plan - Assessment and Plan (Free Text) Plan: Mr. Lambert is a 67 y/o ruben with stage IV NSCLC with hepatic mets s/p RFA currently admitted with recurrent right pleural effusion: Stage IV NSCLC -with hepatic and bone mets -s/p RFA -recurrent right pleural effusion thought to be malignant potentially vs infectious (cytology pending) * pleural fluid cytology from previous thoracentesis on 03/14/18: rare atypical cells; due to paucity of cells further workup is not possible -chest tube draining sanguinous fluid today * plan is for pleurX catheter placement with Dr Izquierdo sometime this week -currently on immunotherapy -candidate for laser ablation of the right main stem with stent and tumor debulking -patient/family to make decision in regards to degree of aggressive treatment Left Elbow Swelling -Duplex of left extremity 03/22/18 was negative for DVT -continue lovenox 40mg sc qd Case discussed with Dr Vaughn
[2018-03-25 06:31] LABS: EOS % 0.6 % (1.5-5.0); GRAN # 5.49 (1.4-6.5); GRAN % 81.5 % (50.0-68.0); HEMOGLOBIN 9.3 g/dL (14.0-18.0); LYMPH # 0.5 (1.2-3.4); LYMPH % 7.4 % (22.0-35.0); MEAN PLATELET VOLUME 11.8 fl (7.0-11.0); MONO # 0.7 (0.1-0.6); MONO % 10.5 % (1.0-6.0); RBC 3.45 10^6/uL (3.5-6.1); WHITE BLOOD COUNT 6.7 10^3/uL (4.5-11.0)
[2018-03-25 06:48] LABS: ALB/GLOB RATIO 0.9 (1.1-1.8); ALBUMIN 1.8 g/dL (3.0-4.8); ALT/SGPT 62 U/L (7-56); AST/SGOT 29 U/L (17-59); BLOOD UREA NITROGEN 26 mg/dL (7-21); CALCIUM 7.5 mg/dL (8.4-10.5); GFR NON-AFRICAN AMERICAN > 60
[2018-03-25] MEDS: Acetylcysteine 20% Inhal Soln (4ml) IH SCH ×2 (07:37→20:00)
[2018-03-25] MEDS: Budesonide 0.5 mg/2 ml Inhal Susp UD IH SCH ×2 (07:38→20:01)
[2018-03-25] MEDS: Levalbuterol 0.63 MG/3 ML Inhal Soln UD IH SCH ×3 (07:38→20:01)
[2018-03-25] MEDS: Pantoprazole 40 mg EC Tab PO SCH (08:29)
--- NOTE | 2018-03-25 08:49 | RAD ---
Date of service: 03/25/2018 HISTORY: chest tube, hx lung cancer COMPARISON: 03/24/2018 FINDINGS: The left subclavian central line terminates in the SVC. LUNGS: There is redemonstration of complete collapse of the right lung the left lung is well inflated and clear. PLEURA: There is interval mild in right pneumothorax with persistent moderate pneumothorax. The right chest tube overlies the costophrenic angle. CARDIOVASCULAR: The heart is normal in size. There are o aortic atherosclerotic calcifications present. OSSEOUS STRUCTURES: Within normal limits for the patient's age. VISUALIZED UPPER ABDOMEN: Normal. OTHER FINDINGS: None. IMPRESSION: Improving right pneumothorax with residual moderate pneumothorax and complete atelectasis of the right lung. Right chest tube overlies the costophrenic angle.
--- NOTE | 2018-03-25 09:23 | CP.PCM.PN ---
Subjective - Date & Time of Evaluation Date of Evaluation: 03/25/18 Time of Evaluation: 09:14 - Subjective Subjective: PGY-2 heme/onc progress note for Dr Randy Vaughn No acute events noted overnight. Pt has a chest tube to 30 cm suction and draining SS fluid. Denied being in pain. Stated he worked with physical therapy yesterday. Daughter at bedside. Denied any GI issues. Stated he was breathing okay (On 3 liters O2 N/C). Objective - Vital Signs/Intake and Output Vital Signs (last 24 hours): Temp Pulse Resp BP Pulse Ox 98.0 F 71 20 98/54 L 98 03/25/18 05:17 03/25/18 05:17 03/25/18 05:17 03/25/18 05:17 03/25/18 05:17 Intake and Output: 03/25/18 03/25/18 06:59 18:59 Intake Total 1580 Output Total 300 550 Balance 1280 -550 - Medications Medications: Current Medications Acetylcysteine (Acetylcysteine 20%) 4 ml IH BIDRESP [facility] Last Admin: 03/25/18 07:37 Dose: 4 ml Albuterol/Ipratropium (Duoneb 3 Mg/0.5 Mg (3 Ml) Ud) 3 ml IH Q2H PRN PRN Reason: Shortness of Breath Last Admin: 03/20/18 19:34 Dose: 3 ml Benzonatate (Tessalon Perles) 100 mg PO TID [facility] Last Admin: 03/24/18 18:33 Dose: 100 mg Budesonide (Pulmicort Respules) 0.5 mg IH [id number] [facility] Last Admin: 03/25/18 07:38 Dose: 0.5 mg Duloxetine HCl (Cymbalta) 60 mg PO DAILY [facility] Last Admin: 03/24/18 09:10 Dose: 60 mg Enoxaparin Sodium (Lovenox) 40 mg SC DAILY [facility]; Protocol Last Admin: 03/24/18 09:06 Dose: 40 mg Gabapentin (Neurontin) 300 mg PO TID [facility]; Protocol Last Admin: 03/24/18 18:33 Dose: 300 mg Guaifenesin (Robitussin) 100 mg PO Q4H PRN PRN Reason: Cough Last Admin: 03/24/18 09:07 Dose: 100 mg Sodium Chloride (Sodium Chloride 0.9%) 1,000 mls @ 80 mls/hr IV .[id number] [facility] Last Admin: 03/24/18 22:37 Dose: 80 mls/hr Levalbuterol HCl (Xopenex) 0.63 mg IH TIDRESP [facility] Last Admin: 03/25/18 07:38 Dose: 0.63 mg Methylprednisolone (Solu-Medrol) 20 mg IVP DAILY [facility] Metoprolol Succinate (Toprol Xl) 100 mg PO DAILY [facility] Last Admin: 03/24/18 09:10 Dose: 100 mg Morphine Sulfate (Morphine) 2 mg IVP Q4H PRN PRN Reason: Pain, severe (8-10) Last Admin: 03/24/18 13:26 Dose: 2 mg Nystatin (Nystatin Oral Susp) 5 ml PO QID [facility] Last Admin: 03/24/18 21:21 Dose: 5 ml Oxycodone HCl (Oxycontin Extended Release Tab) 20 mg PO Q12 [facility] Last Admin: 03/24/18 22:35 Dose: 20 mg Pantoprazole Sodium (Protonix Ec Tab) 40 mg PO ACB [facility] Last Admin: 03/25/18 08:29 Dose: 40 mg Polyethylene Glycol (Miralax) 17 gm PO BID [facility] Last Admin: 03/24/18 17:49 Dose: Not Given Tamsulosin HCl (Flomax) 0.4 mg PO DAILY [facility] Last Admin: 03/24/18 09:10 Dose: 0.4 mg - Labs Labs: 03/25/18 06:00 03/25/18 06:00 PT 16.2 SECONDS (9.4-12.5) H 03/11/18 20:55 INR 1.41 03/11/18 20:55 APTT 28.5 Seconds (25.1-36.5) 03/11/18 20:55 - Additional Findings Additional findings: - Constitutional Appears: Non-toxic, No Acute Distress, Chronically Ill - Head Exam Head Exam: ATRAUMATIC, NORMAL INSPECTION - Eye Exam Eye Exam: EOMI, Normal appearance, PERRL - ENT Exam ENT Exam: Mucous Membranes Moist - Neck Exam Neck Exam: Full ROM - Respiratory Exam Respiratory Exam: Decreased Breath Sounds, Rales b/l, NORMAL BREATHING PATTERN - Cardiovascular Exam Cardiovascular Exam: REGULAR RHYTHM, +S1, +S2. absent: Bradycardia, Tachycardia, Murmur - GI/Abdominal Exam GI & Abdominal Exam: Soft, Normal Bowel Sounds. absent: Tenderness - Extremities Exam Extremities Exam: Full ROM, Normal Capillary Refill, Normal Inspection, edema in legs 2+, left elbow edematous compared to right - Neurological Exam Neurological Exam: Alert, Awake - Psychiatric Exam Psychiatric exam: Normal Affect, Normal Mood - Skin Skin Exam: Dry, Intact, Normal Color, Warm Assessment and Plan - Assessment and Plan (Free Text) Plan: Mr. Lambert is a 67 y/o ruben with stage IV NSCLC with hepatic mets s/p RFA currently admitted with recurrent right pleural effusion: Stage IV NSCLC -with hepatic and bone mets -s/p RFA -recurrent right pleural effusion thought to be malignant potentially vs infectious (cytology pending) * s/p thoracentesis with 1.9L removed * pleural fluid cytology from previous thoracentesis on 03/14/18: rare atypical cells; due to paucity of cells further workup is not possible -chest tube right pleural space draining sanguinous fluid today * convert to pleurX catheter when output stable and right lung re-expands * it should be noted that lung expansion difficult due to tumor burden compressing right main stem bronchus * tentative plan is for pleurX catheter placement with Dr Izquierdo sometime this week - dependent on discussion between Dr Izquierdo and family/patient -currently on immunotherapy -candidate for laser ablation of the right main stem with stent and tumor debulking -patient/family to make decision in regards to degree of aggressive treatment - as of now patient indicated he wants all treatment available Left Elbow Swelling -Duplex of left extremity 03/22/18 was negative for DVT -continue lovenox 40mg sc qd Case discussed with Dr Vaughn
[2018-03-25] MEDS: oxyCODONE 20 mg ER Tab (oxyCONTIN) PO SCH (09:29)
[2018-03-25] MEDS: Metoprolol Succinate 100 mg XL Tab PO SCH (09:34)
[2018-03-25] MEDS: MethylPREDNISolone 40 mg Vial IVP SCH (09:34)
[2018-03-25] MEDS: Enoxaparin 40 mg Syringe SC SCH (09:36)
[2018-03-25] MEDS: Nystatin 100,000 Units/ml Oral Susp 5 ml UD PO SCH ×4 (09:38→21:13)
[2018-03-25] MEDS: Sodium Chloride 0.9% 1,000 ML IV SCH (10:44)
--- NOTE | 2018-03-25 11:41 | PN ---
DATE: 03/25/2018 PULMONARY PROGRESS NOTE REFERRING PHYSICIAN: Dr. Novak. SUBJECTIVE: The patient is lying in bed. Head of bed elevated. No acute distress. Reports feeling weak after voiding this morning. No overnight events reported. Reporting some chest discomfort to chest tube site. No headache, rhinitis, cough, shortness of breath, chest pain, abdominal pain, nausea, vomiting, diarrhea, leg pain or leg swelling reported. OBJECTIVE: GENERAL: No acute distress. VITAL SIGNS: Blood pressure 102/66, pulse 76, temperature 98, and oxygen saturation 98% on nasal cannula. HEENT: Moist mucous membranes. NECK: Supple. No JVD. LUNGS: Decreased breath sounds on the right. Chest tube in place to the right. Few rhonchi on the left. CARDIOVASCULAR: S1 and S2 audible. ABDOMEN: Soft and nontender. No distention. No organomegaly. EXTREMITIES: No bilateral lower extremity edema. NEUROLOGIC: Awake, alert, and verbal. Follows commands. MEDICATIONS: Reviewed. Mucomyst 4 mL inhalation twice a day, DuoNeb 3 mL inhalation every 2 hours p.r.n, Tessalon Perles 100 mg 3 times a day, Pulmicort 0.5 mg inhalation every 12 hours, Cymbalta 60 mg daily, Lovenox 40 mg daily, Neurontin 300 mg 3 times a day, Robitussin 100 mg every 4 hours p.r.n., Xopenex 0.63 mg inhalation 3 times a day, Solu-Medrol 20 mg daily, metoprolol succinate 100 mg daily, morphine sulfate 2 mg every 4 hours p.r.n. for severe pain, nystatin oral suspension 5 mL 4 times a day, oxycodone 20 mg every 12 hours, Protonix 40 mg before meals, MiraLax 17 g twice a day, sodium chloride 0.9% 1000 mL at 80 mL per hour and Flomax 0.4 mg daily. LABORATORY DATA: Reviewed. WBC 6.7, RBC 3.45, hemoglobin 9.3, hematocrit 30 and platelets 105. Sodium 134, potassium 4, chloride 105, carbon dioxide 29, anion gap 4, BUN 26, creatinine 0.8, GFR greater than 60, random glucose 87, calcium 7.5, ALT 62, total protein 3.8, albumin 1.8, globulin 2.0 and albumin-globulin ratio 0.9. Chest x-ray shows improving right pneumothorax with residual moderate pneumothorax and complete atelectasis of the right lung, right chest tube overlay the costophrenic angles. IMPRESSION AND PLAN: Metastatic stage IV non-small cell carcinoma of the lung, pleural effusion, status post thoracentesis, status post insertion of chest tube, hypertension, history of alcohol abuse, anxiety disorder, gastroesophageal reflux disease. Continue to monitor chest tube output. Oncology followup. Awaiting possible PleurX catheter to be placed after chest tube is removed. Continue inhaled bronchodilators, gastric prophylaxis, deep venous thrombosis prophylaxis, head of bed elevated at 45 degrees. Appreciated Oncology note, awaiting family's decision and further treatment plan. This patient was seen and examined with Dr. Read. Discussed assessment and plan as described above. Thank you for this consult. We will follow with you. Mark Luke APN Fred Read MD
[2018-03-25] MEDS: POLYETHYLENE GLYCOL 3350 17 GM/Dose PACKET PO SCH ×2 (12:11→17:10)
[2018-03-25] MEDS ORDERED: Oxycodone/Acetaminophen 10/325 mg Tab PO STA (12:16)
[2018-03-25] MEDS: Morphine 2 mg/ml ISec IVP PRN ×2 (12:30→17:20)
--- NOTE | 2018-03-25 13:13 | CP.PCM.APN ---
Subjective - Date & Time of Evaluation Date of Evaluation: 03/25/18 Time of Evaluation: 09:30 - Subjective Subjective: pt seen and examined p eating breakfast, daughter at bedside pt states he feels better and is "thinking about PleurX option" Review of Systems - Constitutional Constitutional: absent: As Per HPI, Anorexia, Chills, Daytime Sleepiness, Excessive Sweating, Fatigue, Fever, Frequent Falls, Headache, Increased Appetite, Lethargy, Malaise, Night Sweats, Snoring, Sleep Apnea, Weight Gain, Weight Loss, Weakness, Other - Cardiovascular Cardiovascular: absent: As Per HPI, Acrocyanosis, Chest Pain, Chest Pain at Rest, Chest Pain with Activity, Claudication, Diaphoresis, Dyspnea, Dyspnea on Exertion, Edema, Irregular Heart Rhythm, Pain Radiating to Arm/Neck/Jaw, Leg Edema, Leg Ulcers, Lightheadedness, Orthopnea, Palpitations, Paroxysmal Nocturnal Dyspnea, Pedal Edema, Radiating Pain, Rapid Heart Rate, Slow Heart Rate, Syncope, Other - Respiratory Respiratory: absent: As Per HPI, Cough, Dyspnea, Hemoptysis, Dyspnea on Exertion, Wheezing, Snoring, Stridor, Pain on Inspiration, Chest Congestion, Excessive Mucous Production, Change in Mucous Color, Pain with Coughing, Other Objective - Vital Signs/Intake and Output Vital Signs (last 24 hours): Temp Pulse Resp BP Pulse Ox 97.6 F 70 18 98/53 L 98 03/25/18 11:58 03/25/18 11:58 03/25/18 11:58 03/25/18 11:58 03/25/18 05:17 Intake and Output: 03/25/18 03/25/18 06:59 18:59 Intake Total 1580 Output Total 300 550 Balance 1280 -550 - Medications Medications: Current Medications Acetylcysteine (Acetylcysteine 20%) 4 ml IH BIDRESP DAVID Last Admin: 03/25/18 07:37 Dose: 4 ml Albuterol/Ipratropium (Duoneb 3 Mg/0.5 Mg (3 Ml) Ud) 3 ml IH Q2H PRN PRN Reason: Shortness of Breath Last Admin: 03/20/18 19:34 Dose: 3 ml Benzonatate (Tessalon Perles) 100 mg PO TID DAVID Last Admin: 03/25/18 09:41 Dose: 100 mg Budesonide (Pulmicort Respules) 0.5 mg IH [id number] [facility] Last Admin: 03/25/18 07:38 Dose: 0.5 mg Duloxetine HCl (Cymbalta) 60 mg PO DAILY [facility] Last Admin: 03/25/18 09:38 Dose: 60 mg Enoxaparin Sodium (Lovenox) 40 mg SC DAILY [facility]; Protocol Last Admin: 03/25/18 09:36 Dose: 40 mg Gabapentin (Neurontin) 300 mg PO TID [facility]; Protocol Last Admin: 03/25/18 09:38 Dose: 300 mg Guaifenesin (Robitussin) 100 mg PO Q4H PRN PRN Reason: Cough Last Admin: 03/24/18 09:07 Dose: 100 mg Sodium Chloride (Sodium Chloride 0.9%) 1,000 mls @ 80 mls/hr IV .[id number] [facility] Last Admin: 03/25/18 10:44 Dose: 80 mls/hr Levalbuterol HCl (Xopenex) 0.63 mg IH TIDRESP [facility] Last Admin: 03/25/18 07:38 Dose: 0.63 mg Methylprednisolone (Solu-Medrol) 20 mg IVP DAILY [facility] Last Admin: 03/25/18 09:34 Dose: 20 mg Metoprolol Succinate (Toprol Xl) 100 mg PO DAILY [facility] Last Admin: 03/25/18 09:34 Dose: 100 mg Morphine Sulfate (Morphine) 2 mg IVP Q4H PRN PRN Reason: Pain, severe (8-10) Last Admin: 03/25/18 12:30 Dose: 2 mg Nystatin (Nystatin Oral Susp) 5 ml PO QID [facility] Last Admin: 03/25/18 09:38 Dose: 5 ml Oxycodone HCl (Oxycontin Extended Release Tab) 20 mg PO Q12 [facility] Last Admin: 03/25/18 09:29 Dose: 20 mg Pantoprazole Sodium (Protonix Ec Tab) 40 mg PO ACB [facility] Last Admin: 03/25/18 08:29 Dose: 40 mg Polyethylene Glycol (Miralax) 17 gm PO BID [facility] Last Admin: 03/25/18 12:11 Dose: Not Given Tamsulosin HCl (Flomax) 0.4 mg PO DAILY [facility] Last Admin: 03/25/18 09:37 Dose: 0.4 mg - Labs Labs: 03/25/18 06:00 03/25/18 06:00 PT 16.2 SECONDS (9.4-12.5) H 03/11/18 20:55 INR 1.41 03/11/18 20:55 APTT 28.5 Seconds (25.1-36.5) 03/11/18 20:55 - Constitutional Appears: No Acute Distress, Chronically Ill - Eye Exam Pupil Exam: NORMAL ACCOMODATION - ENT Exam ENT Exam: Normal Exam - Respiratory Exam Respiratory Exam: NORMAL BREATHING PATTERN Additional comments: right chest tube to LWS - GI/Abdominal Exam GI & Abdominal Exam: Soft, Normal Bowel Sounds - Extremities Exam Extremities Exam: Normal Capillary Refill - Neurological Exam Neurological Exam: Alert, Awake - Psychiatric Exam Psychiatric exam: Normal Affect, Normal Mood Assessment and Plan - Assessment and Plan (Free Text) Plan: Impressions Chest X-Ray 03/24/18 07:00 IMPRESSION: There is no change in the large right pneumothorax. The pigtail chest tube is seen at the right lung base. Chest X-Ray 03/25/18 07:00 IMPRESSION: Improving right pneumothorax with residual moderate pneumothorax and complete atelectasis of the right lung. Right chest tube overlies the costophrenic angle. 67 yr old male with pmh sif for stage Iv lung ca with mets to liver and bone admitted to the ICU for mgmt after presenting to the ED with worsening SOB and hypoxic resp failure, sepsis and new onset chf , right lung white out and pleural effusion pt s/p thoracentesis and right chest tube with cardiac, renal, pul and oncology consultations #right pleural effusion s/p thoracentesis 1.9 L removed right chest tube in place , per nursing staff 500 ml last 24 hrs will continue to monitor output last cxr 03/25- Improving right pneumothorax with residual moderate pneumothorax and complete atelectasis of the right lung. Right chest tube overlies the costophrenic angle. convert to pleurex cath when output stable/ right lung re-expands will follow up with vasc recommendations per Dr Smooth Izquierdo #sepsis/right lung pne- s/p iv antibiotic , stable, leukocytosisi resolved #stage IV metastatic ca- oncology note rev'd and recommendations noted # urinary retention Flomax therapy prn bladder scan will continue to follow clinically Nina Lyons BPCI/TIC - BPCIA/TIC Educated pt/family on BPCIA/CIR/Med to Bed Programs: Yes Flyers given, including CMS Beneficiary letter: Yes Pt/family verbalized understanding & agreed to program: Yes
--- NOTE | 2018-03-25 13:16 | CP.PCM.PN ---
<Maxim Barfield - Last Filed: 03/25/18 13:13> Subjective - Date & Time of Evaluation Date of Evaluation: 03/25/18 Time of Evaluation: 07:15 - Subjective Subjective: ID progress note Patient seen and examined. No acute events overnight. No fever, chest pain. Admits to occasional shortness of breath. Objective - Vital Signs/Intake and Output Vital Signs (last 24 hours): Temp Pulse Resp BP Pulse Ox 97.6 F 70 18 98/53 L 98 03/25/18 11:58 03/25/18 11:58 03/25/18 11:58 03/25/18 11:58 03/25/18 05:17 Intake and Output: 03/25/18 03/25/18 06:59 18:59 Intake Total 1580 Output Total 300 550 Balance 1280 -550 - Medications Medications: Current Medications Acetylcysteine (Acetylcysteine 20%) 4 ml IH BIDRESP [facility] Last Admin: 03/25/18 07:37 Dose: 4 ml Albuterol/Ipratropium (Duoneb 3 Mg/0.5 Mg (3 Ml) Ud) 3 ml IH Q2H PRN PRN Reason: Shortness of Breath Last Admin: 03/20/18 19:34 Dose: 3 ml Benzonatate (Tessalon Perles) 100 mg PO TID [facility] Last Admin: 03/25/18 09:41 Dose: 100 mg Budesonide (Pulmicort Respules) 0.5 mg IH [id number] [facility] Last Admin: 03/25/18 07:38 Dose: 0.5 mg Duloxetine HCl (Cymbalta) 60 mg PO DAILY [facility] Last Admin: 03/25/18 09:38 Dose: 60 mg Enoxaparin Sodium (Lovenox) 40 mg SC DAILY [facility]; Protocol Last Admin: 03/25/18 09:36 Dose: 40 mg Gabapentin (Neurontin) 300 mg PO TID [facility]; Protocol Last Admin: 03/25/18 09:38 Dose: 300 mg Guaifenesin (Robitussin) 100 mg PO Q4H PRN PRN Reason: Cough Last Admin: 03/24/18 09:07 Dose: 100 mg Sodium Chloride (Sodium Chloride 0.9%) 1,000 mls @ 80 mls/hr IV .[id number] [facility] Last Admin: 03/25/18 10:44 Dose: 80 mls/hr Levalbuterol HCl (Xopenex) 0.63 mg IH TIDRESP [facility] Last Admin: 03/25/18 07:38 Dose: 0.63 mg Methylprednisolone (Solu-Medrol) 20 mg IVP DAILY [facility] Last Admin: 03/25/18 09:34 Dose: 20 mg Metoprolol Succinate (Toprol Xl) 100 mg PO DAILY [facility] Last Admin: 03/25/18 09:34 Dose: 100 mg Morphine Sulfate (Morphine) 2 mg IVP Q4H PRN PRN Reason: Pain, severe (8-10) Last Admin: 03/25/18 12:30 Dose: 2 mg Nystatin (Nystatin Oral Susp) 5 ml PO QID [facility] Last Admin: 03/25/18 09:38 Dose: 5 ml Oxycodone HCl (Oxycontin Extended Release Tab) 20 mg PO Q12 [facility] Last Admin: 03/25/18 09:29 Dose: 20 mg Pantoprazole Sodium (Protonix Ec Tab) 40 mg PO ACB [facility] Last Admin: 03/25/18 08:29 Dose: 40 mg Polyethylene Glycol (Miralax) 17 gm PO BID [facility] Last Admin: 03/25/18 12:11 Dose: Not Given Tamsulosin HCl (Flomax) 0.4 mg PO DAILY [facility] Last Admin: 03/25/18 09:37 Dose: 0.4 mg - Labs Labs: 03/25/18 06:00 03/25/18 06:00 PT 16.2 SECONDS (9.4-12.5) H 03/11/18 20:55 INR 1.41 03/11/18 20:55 APTT 28.5 Seconds (25.1-36.5) 03/11/18 20:55 - Constitutional Appears: Non-toxic, No Acute Distress - Head Exam Head Exam: ATRAUMATIC, NORMAL INSPECTION, NORMOCEPHALIC - Respiratory Exam Respiratory Exam: Decreased Breath Sounds, Wheezes (On right side), NORMAL BREATHING PATTERN. absent: Rales, Rhonchi - Cardiovascular Exam Cardiovascular Exam: RRR, +S1, +S2 - GI/Abdominal Exam GI & Abdominal Exam: Soft, Normal Bowel Sounds. absent: Tenderness - Extremities Exam Extremities Exam: Normal Inspection, Pedal Edema (Trace b/l) - Neurological Exam Neurological Exam: Alert, Awake, Oriented x3 - Psychiatric Exam Psychiatric exam: Normal Affect, Normal Mood - Skin Skin Exam: Intact, Normal Color, Warm Assessment and Plan - Assessment and Plan (Free Text) Plan: Right sided hospital acquired pneumonia S/p right chest tube placement S/p right-sided thoracentesis Hx of stage IV lung cancer with mets to bone and liver Hx of COPD Hx of HTN Hx of Tobacco use Hx of Alcohol use Plan Afebrile, no leukocytosis S/p Doxycycline and Merrem Continue to monitor off of antibiotics Blood and urine cultures negative Patient to have pleurx catheter placed this week Continue current medical management Lico, PGY-3 <Dominic Jay S - Last Filed: 03/25/18 18:04> Objective - Vital Signs/Intake and Output Vital Signs (last 24 hours): Temp Pulse Resp BP Pulse Ox 97.5 F L 74 18 93/60 L 98 03/25/18 17:52 03/25/18 17:52 03/25/18 17:52 03/25/18 17:52 03/25/18 05:17 Intake and Output: 03/25/18 03/25/18 06:59 18:59 Intake Total 1580 Output Total 300 550 Balance 1280 -550 - Medications Medications: Current Medications Acetylcysteine (Acetylcysteine 20%) 4 ml IH BIDRESP [facility] Last Admin: 03/25/18 07:37 Dose: 4 ml Albuterol/Ipratropium (Duoneb 3 Mg/0.5 Mg (3 Ml) Ud) 3 ml IH Q2H PRN PRN Reason: Shortness of Breath Last Admin: 03/20/18 19:34 Dose: 3 ml Benzonatate (Tessalon Perles) 100 mg PO TID [facility] Last Admin: 03/25/18 17:20 Dose: 100 mg Budesonide (Pulmicort Respules) 0.5 mg IH [id number] [facility] Last Admin: 03/25/18 07:38 Dose: 0.5 mg Duloxetine HCl (Cymbalta) 60 mg PO DAILY [facility] Last Admin: 03/25/18 09:38 Dose: 60 mg Enoxaparin Sodium (Lovenox) 40 mg SC DAILY [facility]; Protocol Last Admin: 03/25/18 09:36 Dose: 40 mg Gabapentin (Neurontin) 300 mg PO TID [facility]; Protocol Last Admin: 03/25/18 17:14 Dose: 300 mg Guaifenesin (Robitussin) 100 mg PO Q4H PRN PRN Reason: Cough Last Admin: 03/24/18 09:07 Dose: 100 mg Sodium Chloride (Sodium Chloride 0.9%) 1,000 mls @ 80 mls/hr IV .[id number] [facility] Last Admin: 03/25/18 10:44 Dose: 80 mls/hr Levalbuterol HCl (Xopenex) 0.63 mg IH TIDRESP [facility] Last Admin: 03/25/18 13:22 Dose: 0.63 mg Methylprednisolone (Solu-Medrol) 20 mg IVP DAILY [facility] Last Admin: 03/25/18 09:34 Dose: 20 mg Metoprolol Succinate (Toprol Xl) 100 mg PO DAILY [facility] Last Admin: 03/25/18 09:34 Dose: 100 mg Morphine Sulfate (Morphine) 2 mg IVP Q4H PRN PRN Reason: Pain, severe (8-10) Last Admin: 03/25/18 17:20 Dose: 2 mg Nystatin (Nystatin Oral Susp) 5 ml PO QID [facility] Last Admin: 03/25/18 17:13 Dose: 5 ml Pantoprazole Sodium (Protonix Ec Tab) 40 mg PO ACB [facility] Last Admin: 03/25/18 08:29 Dose: 40 mg Polyethylene Glycol (Miralax) 17 gm PO BID [facility] Last Admin: 03/25/18 17:10 Dose: Not Given Tamsulosin HCl (Flomax) 0.4 mg PO DAILY [facility] Last Admin: 03/25/18 09:37 Dose: 0.4 mg - Labs Labs: 03/25/18 06:00 03/25/18 06:00 PT 16.2 SECONDS (9.4-12.5) H 03/11/18 20:55 INR 1.41 03/11/18 20:55 APTT 28.5 Seconds (25.1-36.5) 03/11/18 20:55 Assessment and Plan - Assessment and Plan (Free Text) Plan: Infectious diseases Attending Physician Attestation Patient seen and examined, discussed with medical affairs leader. I have reviewed the patient's history of present illness, past medical, social, personal and family histories, pertinent physical exam findings, course so far in this hospital admission, pertinent laboratory and imaging results. I agree with the above findings, assessment and plan. In addition, continue to monitor off antibiotics, S/P treatment for right sided HAP. Overall prognosis is poor in this patient with stage 4 lung cancer.
--- NOTE | 2018-03-25 14:28 | CP.PCM.PN ---
<Paloma Rodriguez - Last Filed: 03/25/18 21:02> Subjective - Date & Time of Evaluation Date of Evaluation: 03/25/18 Time of Evaluation: 14:27 - Subjective Subjective: Paloma Rodriguez, PGY-1 Medicine Progress Note for Dr. Novak: Pt was seen and examined this AM at bedside. Pt denies any acute overnight he had no acute events. He states that today his breathing is about the same as yesterday, and denies any cough. He also states that he is tolerating his diet and has no associated n/v. He also denies fevers, chills, headache, chest pain, cough, abd pain, n/v, c/d, or dysuria. He states that he voided today, but admitted to some weakness afterward. Objective - Vital Signs/Intake and Output Vital Signs (last 24 hours): Temp Pulse Resp BP Pulse Ox 97.6 F 70 18 98/53 L 98 03/25/18 11:58 03/25/18 11:58 03/25/18 11:58 03/25/18 11:58 03/25/18 05:17 Intake and Output: 03/25/18 03/25/18 06:59 18:59 Intake Total 1580 Output Total 300 550 Balance 1280 -550 - Medications Medications: Current Medications Acetylcysteine (Acetylcysteine 20%) 4 ml IH BIDRESP [facility] Last Admin: 03/25/18 07:37 Dose: 4 ml Albuterol/Ipratropium (Duoneb 3 Mg/0.5 Mg (3 Ml) Ud) 3 ml IH Q2H PRN PRN Reason: Shortness of Breath Last Admin: 03/20/18 19:34 Dose: 3 ml Benzonatate (Tessalon Perles) 100 mg PO TID [facility] Last Admin: 03/25/18 09:41 Dose: 100 mg Budesonide (Pulmicort Respules) 0.5 mg IH [id number] [facility] Last Admin: 03/25/18 07:38 Dose: 0.5 mg Duloxetine HCl (Cymbalta) 60 mg PO DAILY [facility] Last Admin: 03/25/18 09:38 Dose: 60 mg Enoxaparin Sodium (Lovenox) 40 mg SC DAILY [facility]; Protocol Last Admin: 03/25/18 09:36 Dose: 40 mg Gabapentin (Neurontin) 300 mg PO TID [facility]; Protocol Last Admin: 03/25/18 09:38 Dose: 300 mg Guaifenesin (Robitussin) 100 mg PO Q4H PRN PRN Reason: Cough Last Admin: 03/24/18 09:07 Dose: 100 mg Sodium Chloride (Sodium Chloride 0.9%) 1,000 mls @ 80 mls/hr IV .[id number] [facility] Last Admin: 03/25/18 10:44 Dose: 80 mls/hr Levalbuterol HCl (Xopenex) 0.63 mg IH TIDRESP [facility] Last Admin: 03/25/18 13:22 Dose: 0.63 mg Methylprednisolone (Solu-Medrol) 20 mg IVP DAILY [facility] Last Admin: 03/25/18 09:34 Dose: 20 mg Metoprolol Succinate (Toprol Xl) 100 mg PO DAILY [facility] Last Admin: 03/25/18 09:34 Dose: 100 mg Morphine Sulfate (Morphine) 2 mg IVP Q4H PRN PRN Reason: Pain, severe (8-10) Last Admin: 03/25/18 12:30 Dose: 2 mg Nystatin (Nystatin Oral Susp) 5 ml PO QID [facility] Last Admin: 03/25/18 09:38 Dose: 5 ml Pantoprazole Sodium (Protonix Ec Tab) 40 mg PO ACB [facility] Last Admin: 03/25/18 08:29 Dose: 40 mg Polyethylene Glycol (Miralax) 17 gm PO BID [facility] Last Admin: 03/25/18 12:11 Dose: Not Given Tamsulosin HCl (Flomax) 0.4 mg PO DAILY [facility] Last Admin: 03/25/18 09:37 Dose: 0.4 mg - Labs Labs: 03/25/18 06:00 03/25/18 06:00 PT 16.2 SECONDS (9.4-12.5) H 03/11/18 20:55 INR 1.41 03/11/18 20:55 APTT 28.5 Seconds (25.1-36.5) 03/11/18 20:55 - Constitutional Appears: Non-toxic, No Acute Distress, Cachectic - Head Exam Head Exam: ATRAUMATIC, NORMAL INSPECTION, NORMOCEPHALIC - Respiratory Exam Respiratory Exam: Decreased Breath Sounds (Particularly R compared to L, there is no tracheal deviation noted on exam), NORMAL BREATHING PATTERN. absent: Accessory Muscle Use, Rales, Rhonchi, Wheezes, Respiratory Distress, Stridor - Cardiovascular Exam Cardiovascular Exam: RRR, +S1, +S2. absent: Gallop, Rubs - GI/Abdominal Exam GI & Abdominal Exam: Soft, Normal Bowel Sounds. absent: Firm, Guarding, Rigid, Tenderness - Extremities Exam Extremities Exam: Normal Inspection. absent: Calf Tenderness, Pedal Edema - Back Exam Back Exam: NORMAL INSPECTION. absent: CVA tenderness (L), CVA tenderness (R) - Neurological Exam Neurological Exam: Alert, Awake, Oriented x3 - Psychiatric Exam Psychiatric exam: Normal Affect, Normal Mood - Skin Skin Exam: Dry, Normal Color, Warm Assessment and Plan - Assessment and Plan (Free Text) Assessment: Pt is a 67yo M with Pmhx of adenocarcinoma with mets to liver (s/p ablation), lungs, and bone, HTN, EtOH abuse, Anxeiety, presented to [facility] on 03/11/18 with complaints of worsening SOB x2 weeks. Pt was admitted to ICU for management and treatment of hypoxemic respiratory failure. Pt has recurrent pleural effusion, likely malignant, was now transferred to floors since pt was stable enough to be transferred out of ICU. Plan: 1) Right pleural effusion - improved - Per IR, pt is still mulling over the options and they will discuss option with pts daughter - Chest tube drained 600cc of sanguinous fluid today - CXR today shows steady right pneumothorax compared to prior studies - CT Chest 03/19 shows decrease in right pleural effusion, multi-loculated hydropneumothorax, improved aeration of the right lung, multiple liver masses - Blood culture negative for 5 days - completed doxy, merrem course - WBC wnl today, afebrile - Solumedrol 20 q12, pulmicort, mucomyst, xopenex, tessalon perles - Echo shows EF 53%, RVSP 61 - Trops are indeterminate - IR, pulm, cardio consult - Home O2 eval later this week 2) Elevated BUN - Improving - Likely dehydration, continues to improve - Pt has poor appetite, counseling given on increased food/fluid intake - Continue NS to 80cc/hr 3) Urinary retention - Refusing straight cath and borja - Voided 500cc today, will monitor - Continue flomax 4) Hx of stage 4 non small cell lung cancer - Mets to the liver, lungs, bone - Currently on immunotherapy - Candidate for laser ablation of the right main stem with stent and tumor debulking - Pt/family to make decision in regards to degree of aggressive treatment - Heme/onc on consult - recs appreciated - Psych on consult for depression 5) Mild hyperkalemia - Resolved 6) Tachycardia-resolved - Continue home toprol XL 100mg 7) Conjunctivitis - Resolved - Topical ciprofloxacin - completed 8) PPX/Diet - Lovenox protonix - HHD Patient seen and case discussed with attending, Dr. Scarlet Rodriguez, PGY1 <Flor Novak - Last Filed: 03/26/18 07:33> Objective - Vital Signs/Intake and Output Vital Signs (last 24 hours): Temp Pulse Resp BP Pulse Ox 97.7 F 74 18 96/62 L 97 03/26/18 05:52 03/26/18 05:52 03/26/18 05:52 03/26/18 05:52 03/26/18 05:52 Intake and Output: 03/26/18 03/26/18 06:59 18:59 Intake Total 1200 Balance 1200 - Medications Medications: Current Medications Acetylcysteine (Acetylcysteine 20%) 4 ml IH BIDRESP [facility] Last Admin: 03/25/18 20:00 Dose: 4 ml Albuterol/Ipratropium (Duoneb 3 Mg/0.5 Mg (3 Ml) Ud) 3 ml IH Q2H PRN PRN Reason: Shortness of Breath Last Admin: 03/20/18 19:34 Dose: 3 ml Benzonatate (Tessalon Perles) 100 mg PO TID [facility] Last Admin: 03/25/18 17:20 Dose: 100 mg Budesonide (Pulmicort Respules) 0.5 mg IH [id number] [facility] Last Admin: 03/25/18 20:01 Dose: 0.5 mg Duloxetine HCl (Cymbalta) 60 mg PO DAILY [facility] Last Admin: 03/25/18 09:38 Dose: 60 mg Enoxaparin Sodium (Lovenox) 40 mg SC DAILY [facility]; Protocol Last Admin: 03/25/18 09:36 Dose: 40 mg Gabapentin (Neurontin) 300 mg PO TID [facility]; Protocol Last Admin: 03/25/18 17:14 Dose: 300 mg Guaifenesin (Robitussin) 100 mg PO Q4H PRN PRN Reason: Cough Last Admin: 03/24/18 09:07 Dose: 100 mg Sodium Chloride (Sodium Chloride 0.9%) 1,000 mls @ 80 mls/hr IV .[id number] [facility] Last Admin: 03/26/18 06:37 Dose: 80 mls/hr Levalbuterol HCl (Xopenex) 0.63 mg IH TIDRESP [facility] Last Admin: 03/25/18 20:01 Dose: 0.63 mg Methylprednisolone (Solu-Medrol) 20 mg IVP DAILY [facility] Last Admin: 03/25/18 09:34 Dose: 20 mg Metoprolol Succinate (Toprol Xl) 100 mg PO DAILY [facility] Last Admin: 03/25/18 09:34 Dose: 100 mg Morphine Sulfate (Morphine) 2 mg IVP Q4H PRN PRN Reason: Pain, severe (8-10) Last Admin: 03/25/18 17:20 Dose: 2 mg Nystatin (Nystatin Oral Susp) 5 ml PO QID [facility] Last Admin: 03/25/18 21:13 Dose: 5 ml Pantoprazole Sodium (Protonix Ec Tab) 40 mg PO ACB [facility] Last Admin: 03/26/18 06:38 Dose: 40 mg Polyethylene Glycol (Miralax) 17 gm PO BID [facility] Last Admin: 03/25/18 17:10 Dose: Not Given Tamsulosin HCl (Flomax) 0.4 mg PO DAILY [facility] Last Admin: 03/25/18 09:37 Dose: 0.4 mg - Labs Labs: 03/26/18 06:41 03/26/18 06:41 PT 16.2 SECONDS (9.4-12.5) H 03/11/18 20:55 INR 1.41 03/11/18 20:55 APTT 28.5 Seconds (25.1-36.5) 03/11/18 20:55 Attending/Attestation - Attestation I have personally seen and examined this patient.: Yes I have fully participated in the care of the patient.: Yes I have reviewed all pertinent clinical information, including history, physical exam and plan: Yes Notes (Text): 03/25/18 67 year old male with past medical history of adenocarcinoma of the lungs, hypertension and anxiety who presented with complaint of shortness of breath. He was found to have right sided recurrent pleural effusion and possible pneumonia. Patient is s/p antibiotics therapy. He had thoracocentesis (03/13/18). Repeat CXR showed complete opacification of right side and chest tube was placed. Repeat CXR today shows improvement of right pneumothorax compared to yesterday. Heme/onc, pulmonary and IR are following. Plan is for pleurex catheter vs chest tube removal today as per IR. PT is following and recommended [facility]. However patient wishes to go home with home services. Patient is full code. Overall prognosis is guarded. Flor Novak MD Hospitalist.
--- NOTE | 2018-03-25 16:14 | CP.PCM.PCO ---
Addendum Addendum: 03/25/18 16:13 pt was not able to participate in interview due to drowsiness, sleepiness
[2018-03-26] MEDS: Sodium Chloride 0.9% 1,000 ML IV SCH ×2 (06:37→09:30)
[2018-03-26] MEDS: Pantoprazole 40 mg EC Tab PO SCH (06:38)
[2018-03-26 06:59] LABS: EOS % 0.3 % (1.5-5.0); GRAN # 5.59 (1.4-6.5); GRAN % 82.5 % (50.0-68.0); LYMPH # 0.5 (1.2-3.4); LYMPH % 7.2 % (22.0-35.0); MEAN CELL VOLUME 87.7 fl (80.0-105.0); MEAN CORPUSCULAR HEMOGLOBIN 27.1 pg (25.0-35.0); MEAN CORPUSCULAR HGB CONC 30.9 g/dl (31.0-37.0); MEAN PLATELET VOLUME 11.4 fl (7.0-11.0); MONO # 0.7 (0.1-0.6); RBC 3.32 10^6/uL (3.5-6.1); RED CELL DISTRIBUTION WIDTH 18.1 % (11.5-14.5); WHITE BLOOD COUNT 6.8 10^3/uL (4.5-11.0)
[2018-03-26 07:29] LABS: ALB/GLOB RATIO 0.8 (1.1-1.8); ALBUMIN 1.7 g/dL (3.0-4.8); ALT/SGPT 49 U/L (7-56); AST/SGOT 18 U/L (17-59); BLOOD UREA NITROGEN 23 mg/dL (7-21); CALCIUM 7.3 mg/dL (8.4-10.5); GFR NON-AFRICAN AMERICAN > 60
[2018-03-26] MEDS: Acetylcysteine 20% Inhal Soln (4ml) IH SCH ×2 (07:46→20:37)
[2018-03-26] MEDS: Levalbuterol 0.63 MG/3 ML Inhal Soln UD IH SCH ×3 (07:47→20:38)
[2018-03-26] MEDS: Budesonide 0.5 mg/2 ml Inhal Susp UD IH SCH ×2 (07:47→20:38)
--- NOTE | 2018-03-26 09:31 | CP.PCM.PN ---
<Maxim Barfield - Last Filed: 03/26/18 13:09> Subjective - Date & Time of Evaluation Date of Evaluation: 03/26/18 Time of Evaluation: 07:15 - Subjective Subjective: ID progress note Patient seen and examined. Patient states he feels lethargic. Denies chest pain, shortness of breath, nausea, vomiting, fever, chills. Objective - Vital Signs/Intake and Output Vital Signs (last 24 hours): Temp Pulse Resp BP Pulse Ox 97.7 F 74 18 96/62 L 97 03/26/18 05:52 03/26/18 05:52 03/26/18 05:52 03/26/18 05:52 03/26/18 05:52 Intake and Output: 03/26/18 03/26/18 06:59 18:59 Intake Total 1200 Balance 1200 - Medications Medications: Current Medications Acetylcysteine (Acetylcysteine 20%) 4 ml IH BIDRESP [facility] Last Admin: 03/26/18 07:46 Dose: 4 ml Albuterol/Ipratropium (Duoneb 3 Mg/0.5 Mg (3 Ml) Ud) 3 ml IH Q2H PRN PRN Reason: Shortness of Breath Last Admin: 03/20/18 19:34 Dose: 3 ml Benzonatate (Tessalon Perles) 100 mg PO TID [facility] Last Admin: 03/25/18 17:20 Dose: 100 mg Budesonide (Pulmicort Respules) 0.5 mg IH [id number] [facility] Last Admin: 03/26/18 07:47 Dose: 0.5 mg Duloxetine HCl (Cymbalta) 60 mg PO DAILY [facility] Last Admin: 03/25/18 09:38 Dose: 60 mg Enoxaparin Sodium (Lovenox) 40 mg SC DAILY [facility]; Protocol Last Admin: 03/25/18 09:36 Dose: 40 mg Gabapentin (Neurontin) 300 mg PO TID [facility]; Protocol Last Admin: 03/25/18 17:14 Dose: 300 mg Guaifenesin (Robitussin) 100 mg PO Q4H PRN PRN Reason: Cough Last Admin: 03/24/18 09:07 Dose: 100 mg Sodium Chloride (Sodium Chloride 0.9%) 1,000 mls @ 50 mls/hr IV .Q20H [facility] Levalbuterol HCl (Xopenex) 0.63 mg IH TIDRESP [facility] Last Admin: 03/26/18 07:47 Dose: 0.63 mg Methylprednisolone (Solu-Medrol) 20 mg IVP DAILY [facility] Last Admin: 03/25/18 09:34 Dose: 20 mg Metoprolol Succinate (Toprol Xl) 100 mg PO DAILY [facility] Last Admin: 03/25/18 09:34 Dose: 100 mg Morphine Sulfate (Morphine) 2 mg IVP Q4H PRN PRN Reason: Pain, severe (8-10) Last Admin: 03/25/18 17:20 Dose: 2 mg Nystatin (Nystatin Oral Susp) 5 ml PO QID [facility] Last Admin: 03/25/18 21:13 Dose: 5 ml Pantoprazole Sodium (Protonix Ec Tab) 40 mg PO ACB [facility] Last Admin: 03/26/18 06:38 Dose: 40 mg Polyethylene Glycol (Miralax) 17 gm PO BID [facility] Last Admin: 03/25/18 17:10 Dose: Not Given Tamsulosin HCl (Flomax) 0.4 mg PO DAILY [facility] Last Admin: 03/25/18 09:37 Dose: 0.4 mg - Labs Labs: 03/26/18 06:41 03/26/18 06:41 PT 16.2 SECONDS (9.4-12.5) H 03/11/18 20:55 INR 1.41 03/11/18 20:55 APTT 28.5 Seconds (25.1-36.5) 03/11/18 20:55 - Constitutional Appears: Non-toxic, No Acute Distress - Head Exam Head Exam: ATRAUMATIC, NORMAL INSPECTION, NORMOCEPHALIC - ENT Exam ENT Exam: Mucous Membranes Moist - Respiratory Exam Respiratory Exam: Decreased Breath Sounds (On right), NORMAL BREATHING PATTERN. absent: Rales, Rhonchi, Wheezes - Cardiovascular Exam Cardiovascular Exam: RRR, +S1, +S2 - GI/Abdominal Exam GI & Abdominal Exam: Soft, Normal Bowel Sounds. absent: Tenderness - Extremities Exam Extremities Exam: Normal Inspection, Pedal Edema (Trace b/l) - Neurological Exam Neurological Exam: Alert, Awake, Oriented x3 - Psychiatric Exam Psychiatric exam: Normal Affect, Normal Mood - Skin Skin Exam: Intact, Normal Color, Warm Assessment and Plan - Assessment and Plan (Free Text) Plan: Right sided hospital acquired pneumonia S/p right chest tube placement S/p right-sided thoracentesis Hx of stage IV lung cancer with mets to bone and liver Hx of COPD Hx of HTN Hx of Tobacco use Hx of Alcohol use Plan Afebrile, no leukocytosis S/p Doxycycline and Merrem Continue to monitor off of antibiotics Blood and urine cultures negative Chest tube removed yesterday Patient to have pleurx catheter placed this week Lico, PGY-3 <Dominic Jay S - Last Filed: 03/26/18 20:47> Objective - Vital Signs/Intake and Output Vital Signs (last 24 hours): Temp Pulse Resp BP Pulse Ox 97.8 F 81 19 104/65 97 03/26/18 18:00 03/26/18 18:00 03/26/18 18:00 03/26/18 18:00 03/26/18 05:52 - Medications Medications: Current Medications Acetylcysteine (Acetylcysteine 20%) 4 ml IH BIDRESP [facility] Last Admin: 03/26/18 20:37 Dose: 4 ml Albuterol/Ipratropium (Duoneb 3 Mg/0.5 Mg (3 Ml) Ud) 3 ml IH Q2H PRN PRN Reason: Shortness of Breath Last Admin: 03/20/18 19:34 Dose: 3 ml Benzonatate (Tessalon Perles) 100 mg PO TID [facility] Last Admin: 03/26/18 17:20 Dose: 100 mg Budesonide (Pulmicort Respules) 0.5 mg IH [id number] [facility] Last Admin: 03/26/18 20:38 Dose: 0.5 mg Duloxetine HCl (Cymbalta) 60 mg PO DAILY [facility] Last Admin: 03/26/18 10:42 Dose: 60 mg Enoxaparin Sodium (Lovenox) 40 mg SC DAILY [facility]; Protocol Last Admin: 03/26/18 10:43 Dose: 40 mg Gabapentin (Neurontin) 300 mg PO TID [facility]; Protocol Last Admin: 03/26/18 17:20 Dose: 300 mg Guaifenesin (Robitussin) 100 mg PO Q4H PRN PRN Reason: Cough Last Admin: 03/24/18 09:07 Dose: 100 mg Sodium Chloride (Sodium Chloride 0.9%) 1,000 mls @ 50 mls/hr IV .Q20H [facility] Last Admin: 03/26/18 09:30 Dose: 50 mls/hr Levalbuterol HCl (Xopenex) 0.63 mg IH TIDRESP [facility] Last Admin: 03/26/18 20:38 Dose: 0.63 mg Methylprednisolone (Solu-Medrol) 20 mg IVP DAILY [facility] Last Admin: 03/26/18 10:43 Dose: 20 mg Metoprolol Succinate (Toprol Xl) 100 mg PO DAILY [facility] Last Admin: 03/26/18 10:42 Dose: Not Given Morphine Sulfate (Morphine) 1 mg IVP Q6 [facility] Last Admin: 03/26/18 17:20 Dose: 1 mg Nystatin (Nystatin Oral Susp) 5 ml PO QID [facility] Last Admin: 03/26/18 17:20 Dose: 5 ml Pantoprazole Sodium (Protonix Ec Tab) 40 mg PO ACB [facility] Last Admin: 03/26/18 06:38 Dose: 40 mg Polyethylene Glycol (Miralax) 17 gm PO BID [facility] Last Admin: 03/26/18 17:20 Dose: 17 gm Tamsulosin HCl (Flomax) 0.4 mg PO DAILY [facility] Last Admin: 03/26/18 10:42 Dose: 0.4 mg - Labs Labs: 03/26/18 06:41 03/26/18 06:41 PT 16.2 SECONDS (9.4-12.5) H 03/11/18 20:55 INR 1.41 03/11/18 20:55 APTT 28.5 Seconds (25.1-36.5) 03/11/18 20:55 Assessment and Plan - Assessment and Plan (Free Text) Plan: Infectious diseases Attending Physician Attestation Patient seen and examined, discussed with medical clerical assistant. I have reviewed the patient's history of present illness, past medical, social, personal and family histories, pertinent physical exam findings, course so far in this hospital admission, pertinent laboratory and imaging results. I agree with the above findings, assessment and plan. In addition, continue to monitor off antibiotics - patient is S/P right sided hospital-acquired pneumonia, with lung cancer. Overall prognosis is poor.
[2018-03-26] MEDS: Metoprolol Succinate 100 mg XL Tab PO SCH (10:42)
--- NOTE | 2018-03-26 10:42 | CP.PCM.APN ---
Subjective - Subjective Subjective: pt seen and examined at bedside he is s/p chest tube removal he agrees to Aspira catheter called Dr Izquierdo office to advise Review of Systems - Review of Systems Review of Systems: chest tube site drainage s/p chest tube removal Objective - Vital Signs/Intake and Output Vital Signs (last 24 hours): Temp Pulse Resp BP Pulse Ox 97.7 F 74 18 96/62 L 97 03/26/18 05:52 03/26/18 05:52 03/26/18 05:52 03/26/18 05:52 03/26/18 05:52 Intake and Output: 03/26/18 03/26/18 06:59 18:59 Intake Total 1200 Balance 1200 - Medications Medications: Current Medications Acetylcysteine (Acetylcysteine 20%) 4 ml IH BIDRESP [facility] Last Admin: 03/26/18 07:46 Dose: 4 ml Albuterol/Ipratropium (Duoneb 3 Mg/0.5 Mg (3 Ml) Ud) 3 ml IH Q2H PRN PRN Reason: Shortness of Breath Last Admin: 03/20/18 19:34 Dose: 3 ml Benzonatate (Tessalon Perles) 100 mg PO TID [facility] Last Admin: 03/25/18 17:20 Dose: 100 mg Budesonide (Pulmicort Respules) 0.5 mg IH [id number] [facility] Last Admin: 03/26/18 07:47 Dose: 0.5 mg Duloxetine HCl (Cymbalta) 60 mg PO DAILY [facility] Last Admin: 03/25/18 09:38 Dose: 60 mg Enoxaparin Sodium (Lovenox) 40 mg SC DAILY [facility]; Protocol Last Admin: 03/25/18 09:36 Dose: 40 mg Gabapentin (Neurontin) 300 mg PO TID [facility]; Protocol Last Admin: 03/25/18 17:14 Dose: 300 mg Guaifenesin (Robitussin) 100 mg PO Q4H PRN PRN Reason: Cough Last Admin: 03/24/18 09:07 Dose: 100 mg Sodium Chloride (Sodium Chloride 0.9%) 1,000 mls @ 50 mls/hr IV .Q20H [facility] Levalbuterol HCl (Xopenex) 0.63 mg IH TIDRESP [facility] Last Admin: 03/26/18 07:47 Dose: 0.63 mg Methylprednisolone (Solu-Medrol) 20 mg IVP DAILY [facility] Last Admin: 03/25/18 09:34 Dose: 20 mg Metoprolol Succinate (Toprol Xl) 100 mg PO DAILY [facility] Last Admin: 03/25/18 09:34 Dose: 100 mg Morphine Sulfate (Morphine) 2 mg IVP Q4H PRN PRN Reason: Pain, severe (8-10) Last Admin: 03/25/18 17:20 Dose: 2 mg Nystatin (Nystatin Oral Susp) 5 ml PO QID [facility] Last Admin: 03/25/18 21:13 Dose: 5 ml Pantoprazole Sodium (Protonix Ec Tab) 40 mg PO ACB [facility] Last Admin: 03/26/18 06:38 Dose: 40 mg Polyethylene Glycol (Miralax) 17 gm PO BID [facility] Last Admin: 03/25/18 17:10 Dose: Not Given Tamsulosin HCl (Flomax) 0.4 mg PO DAILY [facility] Last Admin: 03/25/18 09:37 Dose: 0.4 mg - Labs Labs: 03/26/18 06:41 03/26/18 06:41 PT 16.2 SECONDS (9.4-12.5) H 03/11/18 20:55 INR 1.41 03/11/18 20:55 APTT 28.5 Seconds (25.1-36.5) 03/11/18 20:55 - Constitutional Appears: Non-toxic, No Acute Distress - Head Exam Head Exam: ATRAUMATIC, NORMOCEPHALIC - ENT Exam ENT Exam: Mucous Membranes Moist - Neck Exam Neck Exam: Normal Inspection - Respiratory Exam Respiratory Exam: Decreased Breath Sounds, NORMAL BREATHING PATTERN - Cardiovascular Exam Cardiovascular Exam: +S1, +S2 - Neurological Exam Neurological Exam: Alert, Awake, Oriented x3 - Skin Skin Exam: Dry, Intact, Warm Additional comments: serrous drainage from chest tube site Assessment and Plan - Assessment and Plan (Free Text) Plan: 67 yr old male with pmh sig for stage Iv lung ca with mets to liver and bone admitted to the ICU for mgmt after presenting to the ED with worsening SOB and hypoxic resp failure, sepsis and new onset chf , right lung white out and pleural effusion pt s/p thoracentesis and right chest tube with cardiac, renal, pul and oncology consultations #right pleural effusion s/p thoracentesis and now s/p right chest tube removal yesterday evening 03/25. pt agreeing to Aspira catheter, called Dr Smooth Izquierdo office to make aware, spoke to Anamika and made resident aware pt in agreement per resident pt will also need home O2. #sepsis/right lung pne s/p iv antibiotic, stable #stage IV metastatic cancer Oncology note rev'd and recommendations noted # urinary retention Flomax therapy prn bladder scan will continue to follow clinically Nina Lyons DNP, FAMILY LITERACY COORDINATOR BPCI/TIC - BPCIA/TIC Educated pt/family on BPCIA/CIR/Med to Bed Programs: Yes Flyers given, including [facility] Beneficiary letter: Yes Pt/family verbalized understanding & agreed to program: Yes
[2018-03-26] MEDS: MethylPREDNISolone 40 mg Vial IVP SCH (10:43)
[2018-03-26] MEDS: Nystatin 100,000 Units/ml Oral Susp 5 ml UD PO SCH ×4 (10:43→21:26)
[2018-03-26] MEDS: Morphine 2 mg/ml ISec IVP PRN (10:43)
[2018-03-26] MEDS: Enoxaparin 40 mg Syringe SC SCH (10:43)
[2018-03-26] MEDS: POLYETHYLENE GLYCOL 3350 17 GM/Dose PACKET PO SCH ×2 (10:45→17:20)
--- NOTE | 2018-03-26 10:55 | RAD ---
Date of service: 03/26/2018 HISTORY: chest tube, hx lung cancer COMPARISON: 03/25/2018 FINDINGS: LUNGS: There is no change in the pattern of the large right-sided pneumothorax. PLEURA: As above CARDIOVASCULAR: No aortic atherosclerotic calcification present. Normal cardiac size. No pulmonary vascular congestion. OSSEOUS STRUCTURES: No significant abnormalities. VISUALIZED UPPER ABDOMEN: Normal. OTHER FINDINGS: None. IMPRESSION: No change in large right-sided pneumothorax
[2018-03-26] MEDS ORDERED: Morphine 2 mg/ml ISec IVP PRN ×2 (12:15→16:44)
--- NOTE | 2018-03-26 13:25 | CP.PCM.PN ---
<Paloma Rodriguez - Last Filed: 03/26/18 15:57> Subjective - Date & Time of Evaluation Date of Evaluation: 03/26/18 Time of Evaluation: 13:21 - Subjective Subjective: Paloma Rodriguez, PGY-1 Medicine Progress Note for Dr. Novak: Pt was seen and examined this AM at bedside. Pt had chest tube removal yesterday, denied any acute overnight events. Pt is noted to have some leaking from site of chest tube removal, dressing in place but will replace it today. He states that today his breathing is doing better today. He also states that he is tolerating his diet and has no associated n/v. He also denies fevers, chills, headache, chest pain, cough, abd pain, n/v, c/d, or dysuria. Objective - Vital Signs/Intake and Output Vital Signs (last 24 hours): Temp Pulse Resp BP Pulse Ox 97.7 F 86 18 86/51 L 97 03/26/18 05:52 03/26/18 10:42 03/26/18 05:52 03/26/18 10:42 03/26/18 05:52 Intake and Output: 03/26/18 03/26/18 06:59 18:59 Intake Total 1200 Balance 1200 - Medications Medications: Current Medications Acetylcysteine (Acetylcysteine 20%) 4 ml IH BIDRESP [facility] Last Admin: 03/26/18 07:46 Dose: 4 ml Albuterol/Ipratropium (Duoneb 3 Mg/0.5 Mg (3 Ml) Ud) 3 ml IH Q2H PRN PRN Reason: Shortness of Breath Last Admin: 03/20/18 19:34 Dose: 3 ml Benzonatate (Tessalon Perles) 100 mg PO TID [facility] Last Admin: 03/25/18 17:20 Dose: 100 mg Budesonide (Pulmicort Respules) 0.5 mg IH [id number] [facility] Last Admin: 03/26/18 07:47 Dose: 0.5 mg Duloxetine HCl (Cymbalta) 60 mg PO DAILY [facility] Last Admin: 03/26/18 10:42 Dose: 60 mg Enoxaparin Sodium (Lovenox) 40 mg SC DAILY [facility]; Protocol Last Admin: 03/26/18 10:43 Dose: 40 mg Gabapentin (Neurontin) 300 mg PO TID [facility]; Protocol Last Admin: 03/26/18 10:42 Dose: 300 mg Guaifenesin (Robitussin) 100 mg PO Q4H PRN PRN Reason: Cough Last Admin: 03/24/18 09:07 Dose: 100 mg Sodium Chloride (Sodium Chloride 0.9%) 1,000 mls @ 50 mls/hr IV .Q20H [facility] Last Admin: 03/26/18 09:30 Dose: 50 mls/hr Levalbuterol HCl (Xopenex) 0.63 mg IH TIDRESP [facility] Last Admin: 03/26/18 07:47 Dose: 0.63 mg Methylprednisolone (Solu-Medrol) 20 mg IVP DAILY [facility] Last Admin: 03/26/18 10:43 Dose: 20 mg Metoprolol Succinate (Toprol Xl) 100 mg PO DAILY [facility] Last Admin: 03/26/18 10:42 Dose: Not Given Morphine Sulfate (Morphine) 1 mg IVP Q4H PRN PRN Reason: Pain, severe (8-10) Nystatin (Nystatin Oral Susp) 5 ml PO QID [facility] Last Admin: 03/26/18 10:43 Dose: 5 ml Pantoprazole Sodium (Protonix Ec Tab) 40 mg PO ACB [facility] Last Admin: 03/26/18 06:38 Dose: 40 mg Polyethylene Glycol (Miralax) 17 gm PO BID [facility] Last Admin: 03/25/18 17:10 Dose: Not Given Tamsulosin HCl (Flomax) 0.4 mg PO DAILY [facility] Last Admin: 03/26/18 10:42 Dose: 0.4 mg - Labs Labs: 03/26/18 06:41 03/26/18 06:41 PT 16.2 SECONDS (9.4-12.5) H 03/11/18 20:55 INR 1.41 03/11/18 20:55 APTT 28.5 Seconds (25.1-36.5) 03/11/18 20:55 - Constitutional Appears: Non-toxic, No Acute Distress - Head Exam Head Exam: ATRAUMATIC, NORMAL INSPECTION, NORMOCEPHALIC - Respiratory Exam Respiratory Exam: Decreased Breath Sounds (R worse than L), NORMAL BREATHING PATTERN. absent: Accessory Muscle Use, Rhonchi, Wheezes, Respiratory Distress, Stridor - Cardiovascular Exam Cardiovascular Exam: RRR, +S1, +S2. absent: Gallop, Rubs - GI/Abdominal Exam GI & Abdominal Exam: Soft, Normal Bowel Sounds. absent: Firm, Guarding, Rigid, Tenderness - Extremities Exam Extremities Exam: Normal Inspection. absent: Calf Tenderness, Pedal Edema - Back Exam Back Exam: NORMAL INSPECTION. absent: CVA tenderness (L), CVA tenderness (R) - Neurological Exam Neurological Exam: Alert, Awake, Oriented x3 - Psychiatric Exam Psychiatric exam: Normal Affect, Normal Mood - Skin Skin Exam: Dry, Normal Color, Warm Assessment and Plan - Assessment and Plan (Free Text) Assessment: Pt is a 67yo M with Pmhx of adenocarcinoma with mets to liver (s/p ablation), lungs, and bone, HTN, EtOH abuse, Anxeiety, presented to [facility] on 03/11/18 with complaints of worsening SOB x2 weeks. Pt was admitted to ICU for management and treatment of hypoxemic respiratory failure. Pt has recurrent pleural effusion, likely malignant, was now transferred to floors since pt was stable enough to be transferred out of ICU. Pts chest tube was pulled yesterday, had some reaccumulation noted on CXR. Plan: 1) Right pleural effusion - Recurred - Chest tube was pulled yesterday, and today pt has recurrence of effusion - Pleurex cath was discussed with pt again today and pt with family was in agreement, will discuss with IR - CXR today shows small R pleural effusion with remaining pneumo - CT Chest 03/19 shows decrease in right pleural effusion, multi-loculated hydropneumothorax, improved aeration of the right lung, multiple liver masses - Blood culture negative for 5 days - completed doxy, merrem course - WBC wnl today, afebrile - Solumedrol 20 qd, pulmicort, mucomyst, xopenex, tessalon perles - Echo shows EF 53%, RVSP 61 - Trops are indeterminate - IR, pulm, cardio consult - Home O2 eval later this week 2) Elevated BUN - Improving - Likely dehydration, continues to improve - Pt has poor appetite, counseling given on increased food/fluid intake - Continue NS to 50cc/hr 3) Urinary retention - Refusing straight cath and borja - Voided 600cc today, will monitor - Continue flomax 4) Hx of stage 4 non small cell lung cancer - Mets to the liver, lungs, bone - Currently on immunotherapy - Candidate for laser ablation of the right main stem with stent and tumor de bulking - Pt/family to make decision in regards to degree of aggressive treatment - Heme/onc on consult - recs appreciated - Psych on consult for depression 5) Mild hyperkalemia - Resolved 6) Tachycardia-resolved - Continue home toprol XL 100mg 7) Conjunctivitis - Resolved - Topical ciprofloxacin - completed 8) PPX/Diet - Lovenox protonix - HHD Patient seen and case discussed with attending, Dr. Scarlet Rodriguez, PGY1 <Flor Novak - Last Filed: 03/26/18 16:34> Objective - Vital Signs/Intake and Output Vital Signs (last 24 hours): Temp Pulse Resp BP Pulse Ox 98.1 F 76 19 96/61 L 97 03/26/18 12:00 03/26/18 12:00 03/26/18 12:00 03/26/18 12:00 03/26/18 05:52 Intake and Output: 03/26/18 03/26/18 06:59 18:59 Intake Total 1200 Balance 1200 - Medications Medications: Current Medications Acetylcysteine (Acetylcysteine 20%) 4 ml IH BIDRESP [facility] Last Admin: 03/26/18 07:46 Dose: 4 ml Albuterol/Ipratropium (Duoneb 3 Mg/0.5 Mg (3 Ml) Ud) 3 ml IH Q2H PRN PRN Reason: Shortness of Breath Last Admin: 03/20/18 19:34 Dose: 3 ml Benzonatate (Tessalon Perles) 100 mg PO TID [facility] Last Admin: 03/25/18 17:20 Dose: 100 mg Budesonide (Pulmicort Respules) 0.5 mg IH [id number] [facility] Last Admin: 03/26/18 07:47 Dose: 0.5 mg Duloxetine HCl (Cymbalta) 60 mg PO DAILY [facility] Last Admin: 03/26/18 10:42 Dose: 60 mg Enoxaparin Sodium (Lovenox) 40 mg SC DAILY [facility]; Protocol Last Admin: 03/26/18 10:43 Dose: 40 mg Gabapentin (Neurontin) 300 mg PO TID [facility]; Protocol Last Admin: 03/26/18 10:42 Dose: 300 mg Guaifenesin (Robitussin) 100 mg PO Q4H PRN PRN Reason: Cough Last Admin: 03/24/18 09:07 Dose: 100 mg Sodium Chloride (Sodium Chloride 0.9%) 1,000 mls @ 50 mls/hr IV .Q20H [facility] Last Admin: 03/26/18 09:30 Dose: 50 mls/hr Levalbuterol HCl (Xopenex) 0.63 mg IH TIDRESP [facility] Last Admin: 03/26/18 14:20 Dose: 0.63 mg Methylprednisolone (Solu-Medrol) 20 mg IVP DAILY [facility] Last Admin: 03/26/18 10:43 Dose: 20 mg Metoprolol Succinate (Toprol Xl) 100 mg PO DAILY [facility] Last Admin: 03/26/18 10:42 Dose: Not Given Morphine Sulfate (Morphine) 1 mg IVP Q4H PRN PRN Reason: Pain, severe (8-10) Last Admin: 03/26/18 14:06 Dose: 1 mg Nystatin (Nystatin Oral Susp) 5 ml PO QID [facility] Last Admin: 03/26/18 10:43 Dose: 5 ml Pantoprazole Sodium (Protonix Ec Tab) 40 mg PO ACB [facility] Last Admin: 03/26/18 06:38 Dose: 40 mg Polyethylene Glycol (Miralax) 17 gm PO BID [facility] Last Admin: 03/25/18 17:10 Dose: Not Given Tamsulosin HCl (Flomax) 0.4 mg PO DAILY [facility] Last Admin: 03/26/18 10:42 Dose: 0.4 mg - Labs Labs: 03/26/18 06:41 03/26/18 06:41 PT 16.2 SECONDS (9.4-12.5) H 03/11/18 20:55 INR 1.41 03/11/18 20:55 APTT 28.5 Seconds (25.1-36.5) 03/11/18 20:55 Attending/Attestation - Attestation I have personally seen and examined this patient.: Yes I have fully participated in the care of the patient.: Yes I have reviewed all pertinent clinical information, including history, physical exam and plan: Yes Notes (Text): 03/26/18 16:31 67 year old male with past medical history of adenocarcinoma of the lungs, hypertension and anxiety who presented with complaint of shortness of breath. He was found to have right sided recurrent pleural effusion and possible pneumonia. Patient is s/p antibiotics therapy. He had thoracocentesis (03/13/18). Daily CXRs were reviewed. He has chest tube removed yesterday with some leaking at the chest tube site today. Patient and family are now agreeable for pleurex catheter; IR follow up requested. Heme/onc and pulmonary are following also following patient. PT is following and recommended [facility]. However patient wishes to go home with home services. Patient is full code. Overall prognosis is guarded. Flor Novak MD Hospitalist.
--- NOTE | 2018-03-26 15:13 | PN ---
DATE: 03/26/2018 REFERRING PHYSICIAN: Dr. Novak. SUBJECTIVE: The patient is lying in bed. No acute distress. No overnight events reported. Chest tube was removed yesterday. The patient reports that he had some leaking from the site when the chest tube was removed. Dressing is in place. No headache, rhinitis, cough, shortness of breath, chest pain, abdominal pain, nausea, vomiting, diarrhea, leg pain or leg swelling reported. OBJECTIVE: VITAL SIGNS: Blood pressure 96/62, pulse 74, temperature 97.7, and oxygen saturation 97%. GENERAL: No acute distress. HEENT: Moist mucous membranes. NECK: Supple. No JVD. LUNGS: Decreased breath sounds on the right. Few rhonchi on the left. CARDIOVASCULAR: S1 and S2 audible. ABDOMEN: Soft and nontender. No distention. No organomegaly. EXTREMITIES: Bilateral upper and bilateral lower extremity edema. NEUROLOGIC: Awake, alert, and verbal. Follows commands. MEDICATIONS: Reviewed. Mucomyst 4 mL inhalation twice a day, DuoNeb 3 mL inhalation every 2 hours p.r.n, Tessalon Perles 100 mg 3 times a day, Pulmicort 0.5 mg inhalation every 12 hours, Cymbalta 60 mg p.o. daily, Lovenox 40 mg subcu daily, gabapentin 300 mg three times a day, Robitussin 100 mg every 4 hours p.r.n., Xopenex 0.63 mg inhalation 3 times a day, Solu-Medrol 20 mg IV push daily, metoprolol succinate 100 mg daily, morphine sulfate 1 mg every 4 hours p.r.n. severe pain, nystatin 5 mL p.o. 4 times a day, Protonix 40 mg daily, MiraLax 17 g twice a day, sodium chloride 0.9% 1000 mL at 50 mL per hour, and Flomax 0.4 mg daily. LABORATORY DATA: Reviewed. WBC 6.8, RBC 3.32, hemoglobin 9, hematocrit 29.1, and platelets 92. Sodium 134, potassium 3.7, chloride 107, carbon dioxide 27, anion gap 4, BUN 23, creatinine 0.8, GFR greater than 60, random glucose 87, calcium 7.3, total bilirubin 0.7, AST 18, ALT 49, alkaline phosphatase 86, total protein 3.8, albumin 1.7, globulin 2.1, and albumin-globulin ratio 0.8. Chest x-ray shows no change in large right side pneumothorax. IMPRESSION AND PLAN: Metastatic stage IV non-small cell carcinoma of the lung, pleural effusion, status post thoracentesis, status post insertion of chest tube, which was removed. The patient has pneumothorax, pending PleurX catheter placement. Continue inhaled bronchodilators, gastric prophylaxis, deep venous thrombosis prophylaxis, head of bed elevated at 45 degrees due to present bilateral upper extremity and bilateral lower extremity edema and low albumin levels, suspect the patient is malnourished, may need increased protein. We will order a driver helper consult. The patient and family to decide whether they want further aggressive care. This patient was seen and examined with Dr. Read. Discussed assessment and plan as described above. Thank you for this consult. We will follow with you. Mark Luke APN Fred Read MD
--- NOTE | 2018-03-26 15:50 | CP.PCM.PCO ---
Physician Communication Note - Physician Communication Note Physician Communication Note: pt is very drowsy, was not able to participate in interview
[2018-03-26] MEDS: Morphine 2 mg/ml ISec IVP SCH (17:20)
[2018-03-26] MEDS ORDERED: oxyCODONE 20 mg ER Tab (oxyCONTIN) PO ONE (20:21)
[2018-03-27] MEDS: Sodium Chloride 0.9% 1,000 ML IV SCH (05:30)
[2018-03-27] MEDS: Pantoprazole 40 mg EC Tab PO SCH (06:29)
[2018-03-27] MEDS: Morphine 2 mg/ml ISec IVP SCH ×5 (06:55→23:02)
[2018-03-27 07:06] LABS: EOS % 0.4 % (1.5-5.0); GRAN # 6.12 (1.4-6.5); GRAN % 81.4 % (50.0-68.0); HEMOGLOBIN 9.1 g/dL (14.0-18.0); LYMPH # 0.7 (1.2-3.4); LYMPH % 8.9 % (22.0-35.0); MEAN CELL VOLUME 87.3 fl (80.0-105.0); MEAN CORPUSCULAR HEMOGLOBIN 27.5 pg (25.0-35.0); MEAN CORPUSCULAR HGB CONC 31.5 g/dl (31.0-37.0); MEAN PLATELET VOLUME 11.6 fl (7.0-11.0); MONO # 0.7 (0.1-0.6); MONO % 9.3 % (1.0-6.0); RBC 3.31 10^6/uL (3.5-6.1); RED CELL DISTRIBUTION WIDTH 18.3 % (11.5-14.5); WHITE BLOOD COUNT 7.5 10^3/uL (4.5-11.0)
[2018-03-27] MEDS: Budesonide 0.5 mg/2 ml Inhal Susp UD IH SCH ×2 (07:22→19:27)
[2018-03-27] MEDS: Acetylcysteine 20% Inhal Soln (4ml) IH SCH ×2 (07:22→19:27)
[2018-03-27] MEDS: Levalbuterol 0.63 MG/3 ML Inhal Soln UD IH SCH ×4 (07:22→19:27)
[2018-03-27 07:36] LABS: ALB/GLOB RATIO 0.9 (1.1-1.8); ALBUMIN 1.8 g/dL (3.0-4.8); ALT/SGPT 63 U/L (7-56); AST/SGOT 29 U/L (17-59); BLOOD UREA NITROGEN 21 mg/dL (7-21); CALCIUM 7.2 mg/dL (8.4-10.5); GFR NON-AFRICAN AMERICAN > 60
--- NOTE | 2018-03-27 08:18 | RAD ---
Date of service: 03/27/2018 HISTORY: chest tube, hx lung cancer COMPARISON: Portable chest 03/26/2018 FINDINGS: LUNGS: Left MediPort again identified. Prior chest tube from 03/25/2018 is not identified once again with no significant interval change in large right pneumothorax and likely developing pleural effusion it least [id number] overall volume. Underlying airspace disease is not excluded within markedly and atelectatic right lung. Minimal probable atelectasis is seen at the lateral left lung zone. PLEURA: As above. CARDIOVASCULAR: Calcific atherosclerotic changes are seen related to the thoracic aorta. Normal cardiac size. No pulmonary vascular congestion. OSSEOUS STRUCTURES: No significant abnormalities. VISUALIZED UPPER ABDOMEN: Normal. OTHER FINDINGS: None. IMPRESSION: Large right pneumothorax reiterated with right chest tube not visualized once again. Increasing opacity at the right base may reflect increased pleural effusion favored over atelectasis. Underlying infiltrate not excluded. Trace patchy density lateral left lung zone. No pulmonary vascular congestion. Findings discussed with Nurse Wood at 2R with written down and read back verification 03/27/2018 8:09 a.m..
--- NOTE | 2018-03-27 08:34 | CP.PCM.PN ---
Subjective - Date & Time of Evaluation Date of Evaluation: 03/27/18 Time of Evaluation: 08:27 - Subjective Subjective: PGY-2 heme/onc progress note No acute events noted overnight. Right chest tube removed - dressing c/d/i. Denied being in pain - stated he felt weak. Stated he didn't work with PT yesterday but will try today. Objective - Vital Signs/Intake and Output Vital Signs (last 24 hours): Temp Pulse Resp BP Pulse Ox 98.0 F 101 H 20 99/58 L 97 03/27/18 06:00 03/27/18 06:00 03/27/18 06:00 03/27/18 06:00 03/27/18 06:00 Intake and Output: 03/27/18 03/27/18 06:59 18:59 Intake Total 300 488 Balance 300 488 - Medications Medications: Current Medications Acetylcysteine (Acetylcysteine 20%) 4 ml IH BIDRESP [facility] Last Admin: 03/27/18 07:22 Dose: 4 ml Benzonatate (Tessalon Perles) 100 mg PO TID [facility] Last Admin: 03/26/18 17:20 Dose: 100 mg Budesonide (Pulmicort Respules) 0.5 mg IH [id number] [facility] Last Admin: 03/27/18 07:22 Dose: 0.5 mg Duloxetine HCl (Cymbalta) 60 mg PO DAILY [facility] Last Admin: 03/26/18 10:42 Dose: 60 mg Enoxaparin Sodium (Lovenox) 40 mg SC DAILY [facility]; Protocol Last Admin: 03/26/18 10:43 Dose: 40 mg Gabapentin (Neurontin) 300 mg PO TID [facility]; Protocol Last Admin: 03/26/18 17:20 Dose: 300 mg Guaifenesin (Robitussin) 100 mg PO Q4H PRN PRN Reason: Cough Last Admin: 03/24/18 09:07 Dose: 100 mg Sodium Chloride (Sodium Chloride 0.9%) 1,000 mls @ 50 mls/hr IV .Q20H [facility] Last Admin: 03/27/18 05:30 Dose: 50 mls/hr Levalbuterol HCl (Xopenex) 0.63 mg IH TIDRESP [facility] Last Admin: 03/27/18 07:22 Dose: 0.63 mg Methylprednisolone (Solu-Medrol) 20 mg IVP DAILY [facility] Last Admin: 03/26/18 10:43 Dose: 20 mg Metoprolol Succinate (Toprol Xl) 100 mg PO DAILY [facility] Last Admin: 03/26/18 10:42 Dose: Not Given Morphine Sulfate (Morphine) 1 mg IVP Q6 [facility] Last Admin: 03/27/18 06:55 Dose: Not Given Nystatin (Nystatin Oral Susp) 5 ml PO QID [facility] Last Admin: 03/26/18 21:26 Dose: 5 ml Pantoprazole Sodium (Protonix Ec Tab) 40 mg PO ACB [facility] Last Admin: 03/27/18 06:29 Dose: 40 mg Polyethylene Glycol (Miralax) 17 gm PO BID [facility] Last Admin: 03/26/18 17:20 Dose: 17 gm Tamsulosin HCl (Flomax) 0.4 mg PO DAILY [facility] Last Admin: 03/26/18 10:42 Dose: 0.4 mg - Labs Labs: 03/27/18 06:40 03/27/18 06:40 PT 16.2 SECONDS (9.4-12.5) H 03/11/18 20:55 INR 1.41 03/11/18 20:55 APTT 28.5 Seconds (25.1-36.5) 03/11/18 20:55 - Additional Findings Additional findings: - Constitutional Appears: Non-toxic, No Acute Distress, Chronically Ill - Head Exam Head Exam: ATRAUMATIC, NORMAL INSPECTION - Eye Exam Eye Exam: EOMI, Normal appearance, PERRL - ENT Exam ENT Exam: Mucous Membranes Moist - Neck Exam Neck Exam: Full ROM - Respiratory Exam Respiratory Exam: Decreased Breath Sounds, Rales b/l, NORMAL BREATHING PATTERN - Cardiovascular Exam Cardiovascular Exam: REGULAR RHYTHM, +S1, +S2. absent: Bradycardia, Tachyc ardia, Murmur - GI/Abdominal Exam GI & Abdominal Exam: Soft, Normal Bowel Sounds. absent: Tenderness - Extremities Exam Extremities Exam: Full ROM, Normal Capillary Refill, Normal Inspection, edema in legs 2+, left elbow edematous compared to right - Neurological Exam Neurological Exam: Alert, Awake - Psychiatric Exam Psychiatric exam: Normal Affect, Normal Mood - Skin Skin Exam: Dry, Intact, Normal Color, Warm, right flank covered in dressing (s/p chest tube removal) Assessment and Plan - Assessment and Plan (Free Text) Plan: Mr. Lambert is a 67 y/o ruben with stage IV NSCLC with hepatic mets s/p RFA currently admitted with recurrent right pleural effusion: Stage IV NSCLC -with hepatic and bone mets s/p RFA -recurrent right pleural effusion thought to be malignant potentially vs infectious (cytology pending) * s/p thoracentesis 03/13/18 with 1.9L removed * pleural fluid cytology from previous thoracentesis on 03/14/18: rare atypical cells; due to paucity of cells further workup is not possible -chest tube right pleural space placed 03/18/18 -> chest tube removed 03/25/18 -> the site was sutured given there was a leak * convert to pleurX catheter when output stable and right lung re-expands * it should be noted that lung expansion difficult due to tumor burden compressing right main stem bronchus * tentative plan is for pleurX catheter placement with Dr Izquierdo - dependent on discussion between Dr Izquierdo and family/patient * Patient is now agreeable to Aspira catheter HOWEVER Dr Izquierdo evaluated u ltrasound and deemed there is not enough fluid to warran a pleurX catheter -currently on immunotherapy -candidate for laser ablation of the right main stem with stent and tumor debulking -patient/family to make decision in regards to degree of aggressive treatment - as of now patient indicated he wants all treatment available Left Elbow Swelling -Duplex of left extremity 03/22/18 was negative for DVT -continue lovenox 40mg sc qd Case discussed with Dr Vaughn
[2018-03-27] MEDS: Metoprolol Succinate 100 mg XL Tab PO SCH (11:00)
[2018-03-27] MEDS: MethylPREDNISolone 40 mg Vial IVP SCH ×2 (11:09→14:13)
[2018-03-27] MEDS ORDERED: Lidocaine 2% Inj (20ml) ONE (12:16)
[2018-03-27] MEDS ORDERED: Midazolam 2 MG/2 ML VIAL ONE (12:33)
--- NOTE | 2018-03-27 13:06 | CP.PCM.PN ---
Subjective - Date & Time of Evaluation Date of Evaluation: 03/27/18 Time of Evaluation: 10:10 - Subjective Subjective: Not in distress but still feels weak, no fevers. Objective - Vital Signs/Intake and Output Vital Signs (last 24 hours): Temp Pulse Resp BP Pulse Ox 98.0 F 101 H 20 99/58 L 97 03/27/18 06:00 03/27/18 06:00 03/27/18 06:00 03/27/18 06:00 03/27/18 06:00 Intake and Output: 03/27/18 03/27/18 06:59 18:59 Intake Total 300 488 Balance 300 488 - Medications Medications: Current Medications Acetylcysteine (Acetylcysteine 20%) 4 ml IH BIDRESP [facility] Last Admin: 03/27/18 07:22 Dose: 4 ml Benzonatate (Tessalon Perles) 100 mg PO TID [facility] Last Admin: 03/26/18 17:20 Dose: 100 mg Budesonide (Pulmicort Respules) 0.5 mg IH [id number] [facility] Last Admin: 03/27/18 07:22 Dose: 0.5 mg Enoxaparin Sodium (Lovenox) 40 mg SC DAILY [facility]; Protocol Last Admin: 03/26/18 10:43 Dose: 40 mg Guaifenesin (Robitussin) 100 mg PO Q4H PRN PRN Reason: Cough Last Admin: 03/24/18 09:07 Dose: 100 mg Sodium Chloride (Sodium Chloride 0.9%) 1,000 mls @ 50 mls/hr IV .Q20H [facility] Last Admin: 03/27/18 05:30 Dose: 50 mls/hr Levalbuterol HCl (Xopenex) 0.63 mg IH TIDRESP [facility] Last Admin: 03/27/18 07:22 Dose: 0.63 mg Methylprednisolone (Solu-Medrol) 20 mg IVP DAILY [facility] Last Admin: 03/26/18 10:43 Dose: 20 mg Morphine Sulfate (Morphine) 1 mg IVP Q6 [facility] Last Admin: 03/27/18 11:03 Dose: 1 mg Nystatin (Nystatin Oral Susp) 5 ml PO QID [facility] Last Admin: 03/26/18 21:26 Dose: 5 ml Pantoprazole Sodium (Protonix Ec Tab) 40 mg PO ACB [facility] Last Admin: 03/27/18 06:29 Dose: 40 mg Polyethylene Glycol (Miralax) 17 gm PO BID [facility] Last Admin: 03/26/18 17:20 Dose: 17 gm Tamsulosin HCl (Flomax) 0.4 mg PO DAILY [facility] Last Admin: 03/26/18 10:42 Dose: 0.4 mg - Labs Labs: 03/27/18 06:40 03/27/18 06:40 PT 16.2 SECONDS (9.4-12.5) H 03/11/18 20:55 INR 1.41 03/11/18 20:55 APTT 28.5 Seconds (25.1-36.5) 03/11/18 20:55 - Constitutional Appears: Chronically Ill - Head Exam Head Exam: NORMAL INSPECTION - Respiratory Exam Respiratory Exam: Decreased Breath Sounds - Cardiovascular Exam Cardiovascular Exam: +S1, +S2 - GI/Abdominal Exam GI & Abdominal Exam: Soft. absent: Tenderness Assessment and Plan - Assessment and Plan (Free Text) Plan: Assessment S/P severe sepsis with acute renal failure and VDRF due to right sided HCAP stage 4 lung cancer with mets to bone and liver S/P port-a-cath placement HTN significant smoking history history of chronic alcohol use anxiety Plan continue to monitor off antibiotics since he is at risk for nosocomial infections - completed course of Doxycycline and Merrem repeat CXR from 03/26 is showing unchanged right sided pneumothorax
--- NOTE | 2018-03-27 13:31 | PN ---
DATE: 03/27/2018 PULMONARY PROGRESS NOTE REFERRING PHYSICIAN: Piero Novak MD SUBJECTIVE: The patient is lying in bed, family at bedside. Reports some generalized body pain, reports having shortness of breath at times. No headache, rhinitis, cough, shortness of breath, chest pain, abdominal pain, nausea, vomiting, diarrhea, leg pain, leg swelling reported. OBJECTIVE: GENERAL: No acute distress. VITAL SIGNS: Blood pressure 99/58, pulse 100, temperature 98, oxygen saturation 97%. HEENT: Moist mucous membranes. NECK: Supple. No JVD. LUNGS: Decreased breath sounds on the right, few rhonchi on the left. CARDIOVASCULAR: S1 and S2 audible. ABDOMEN: Soft, nontender. No distension. No organomegaly. EXTREMITIES: Some bilateral upper and lower extremity edema. NEUROLOGIC: Awake, alert, verbal, follows commands. MEDICATIONS: Reviewed. Mucomyst 4 mL inhalation twice a day, Tessalon Perles 100 mg 3 times a day, Pulmicort 0.5 mg every 12 hours, Lovenox 40 mg daily, Robitussin 100 mg every 4 hours p.r.n., Xopenex 0.63 mg inhalation 3 times a day, Solu-Medrol 20 mg daily, morphine 1 mg every 6 hours, nystatin 5 mL p.o. 4 times a day, Protonix 40 mg in the morning, MiraLax 17 g twice a day, sodium chloride 0.9% 1000 mL with 50 mL per hour, Flomax 0.4 mg p.o. daily. LABORATORY DATA: Reviewed. WBC 7.5, RBC 3.31, hemoglobin 9.1, hematocrit 28.9, platelets 94. Sodium 135, potassium 3.6, chloride 107, carbon dioxide 28, anion gap 4, BUN 21, creatinine 0.7, GFR greater than 60, random glucose 84, calcium 7.2, total bilirubin 0.9. AST 29, ALT 63, alkaline phosphatase 100, total protein 3.9, albumin 1.8, globulin 2.1, albumin-globulin ratio 0.9. IMPRESSION AND PLAN: Metastatic stage IV nonsmall cell carcinoma of the lung, pleural effusion status post thoracentesis, status post insertion of chest tube which has since been removed. The patient has pneumothorax. Continue inhaled bronchodilators, gastric prophylaxis, deep venous thrombosis prophylaxis, head of bed elevated 45 degrees, pending dietary consult, pending possible Pleurx catheter placement. The patient may need thoracic surgeon opinion for persistent pneumothorax. The patient has been reluctant to have further invasive procedures done with family and the patient to decide whether they want further aggressive care to be done. This patient was seen and examined with Dr. Read. Discussed assessment and plan as described above. Thank you for this consult. We will follow with you. Mark Luke APN Fred Read MD
[2018-03-27] MEDS: Enoxaparin 40 mg Syringe SC SCH (14:13)
[2018-03-27] MEDS: POLYETHYLENE GLYCOL 3350 17 GM/Dose PACKET PO SCH ×2 (14:14→18:23)
[2018-03-27] MEDS: Nystatin 100,000 Units/ml Oral Susp 5 ml UD PO SCH ×4 (14:15→23:02)
--- NOTE | 2018-03-27 16:17 | VASCULAR ---
Date of service: 03/27/2018 PROCEDURE: Ultrasound right chest HISTORY: Attempt insertion of right tunneled pleural catheter COMPARISON: TECHNIQUE: FINDINGS: The patient was placed supine and sonography of the right chest performed This revealed a very small amount of pleural fluid present. A residual hydropneumothorax is seen. There is not enough fluid for safe placement of the tunneled right pleural catheter IMPRESSION: Small amount of fluid in the right chest. Not enough fluid for tunneled pleural catheter placement. If hydropneumothorax increases, tunneled catheter can be placed as an outpatient
--- NOTE | 2018-03-27 17:38 | CP.PCM.PN ---
<Paloma Rodriguez - Last Filed: 03/27/18 23:26> Subjective - Date & Time of Evaluation Date of Evaluation: 03/27/18 Time of Evaluation: 17:00 - Subjective Subjective: Paloma Rodriguez, PGY-1 Medicine Progress Note for Dr. Novak: Pt was seen and examined this AM at bedside. Pt had chest tube removal and had multiple dressing changes for drainage coming from site of chest tube placement. Pt is scheduled for pleur-x catheter placement. He states that today his breathing is doing better today. He also states that he is tolerating his diet and has no associated n/v. He also denies fevers, chills, headache, chest pain, cough, abd pain, n/v, c/d, or dysuria. Objective - Vital Signs/Intake and Output Vital Signs (last 24 hours): Temp Pulse Resp BP Pulse Ox 98.0 F 101 H 20 99/58 L 97 03/27/18 06:00 03/27/18 06:00 03/27/18 06:00 03/27/18 06:00 03/27/18 06:00 Intake and Output: 03/27/18 03/27/18 06:59 18:59 Intake Total 300 488 Balance 300 488 - Medications Medications: Current Medications Acetylcysteine (Acetylcysteine 20%) 4 ml IH BIDRESP [facility] Last Admin: 03/27/18 07:22 Dose: 4 ml Benzonatate (Tessalon Perles) 100 mg PO TID [facility] Last Admin: 03/27/18 14:14 Dose: 100 mg Budesonide (Pulmicort Respules) 0.5 mg IH [id number] [facility] Last Admin: 03/27/18 07:22 Dose: 0.5 mg Enoxaparin Sodium (Lovenox) 40 mg SC DAILY [facility]; Protocol Last Admin: 03/27/18 14:13 Dose: 40 mg Fluoxetine HCl (Prozac) 10 mg PO DAILY [facility] Guaifenesin (Robitussin) 100 mg PO Q4H PRN PRN Reason: Cough Last Admin: 03/24/18 09:07 Dose: 100 mg Sodium Chloride (Sodium Chloride 0.9%) 1,000 mls @ 50 mls/hr IV .Q20H [facility] Last Admin: 03/27/18 05:30 Dose: 50 mls/hr Levalbuterol HCl (Xopenex) 0.63 mg IH TIDRESP [facility] Last Admin: 03/27/18 13:51 Dose: 0.63 mg Methylprednisolone (Solu-Medrol) 20 mg IVP DAILY [facility] Last Admin: 03/27/18 14:13 Dose: 20 mg Morphine Sulfate (Morphine) 1 mg IVP Q6 [facility] Last Admin: 03/27/18 11:03 Dose: 1 mg Nystatin (Nystatin Oral Susp) 5 ml PO QID [facility] Last Admin: 03/27/18 14:15 Dose: 5 ml Pantoprazole Sodium (Protonix Ec Tab) 40 mg PO ACB [facility] Last Admin: 03/27/18 06:29 Dose: 40 mg Polyethylene Glycol (Miralax) 17 gm PO BID [facility] Last Admin: 03/27/18 14:14 Dose: 17 gm Tamsulosin HCl (Flomax) 0.4 mg PO DAILY [facility] Last Admin: 03/27/18 14:15 Dose: 0.4 mg - Labs Labs: 03/27/18 06:40 03/27/18 06:40 PT 16.2 SECONDS (9.4-12.5) H 03/11/18 20:55 INR 1.41 03/11/18 20:55 APTT 28.5 Seconds (25.1-36.5) 03/11/18 20:55 - Constitutional Appears: Non-toxic, No Acute Distress - Head Exam Head Exam: ATRAUMATIC, NORMAL INSPECTION, NORMOCEPHALIC - Eye Exam Eye Exam: EOMI, Normal appearance, PERRL - Respiratory Exam Respiratory Exam: Decreased Breath Sounds (R worse than L), NORMAL BREATHING PATTERN. absent: Accessory Muscle Use, Rales, Rhonchi, Wheezes, Stridor - Cardiovascular Exam Cardiovascular Exam: RRR, +S1, +S2. absent: Gallop, Rubs - GI/Abdominal Exam GI & Abdominal Exam: Soft, Normal Bowel Sounds. absent: Firm, Guarding, Rigid, Tenderness - Extremities Exam Extremities Exam: Normal Inspection. absent: Full ROM, Tenderness - Back Exam Back Exam: NORMAL INSPECTION. absent: CVA tenderness (L), CVA tenderness (R) - Neurological Exam Neurological Exam: Alert, Awake, Oriented x3 - Psychiatric Exam Psychiatric exam: Normal Affect, Normal Mood - Skin Skin Exam: Dry, Intact, Normal Color Assessment and Plan - Assessment and Plan (Free Text) Assessment: Pt is a 67yo M with Pmhx of adenocarcinoma with mets to liver (s/p ablation), lungs, and bone, HTN, EtOH abuse, Anxeiety, presented to [facility] [place] ED on 03/11/18 with complaints of worsening SOB x2 weeks. Pt was admitted to ICU for management and treatment of hypoxemic respiratory failure. Pt has recurrent pleural effusion, likely malignant, was now transferred to floors since pt was stable enough to be transferred out of ICU. Pts chest tube was pulled and had some reaccumulation noted on CXR. Pt has schedule for pleur-x cath today at 11:30. Plan: 1) Right pleural effusion - Recurred - Chest tube was pulled and is scheduled for pleur-x cath placement today - CXR yesterday showed returning effusion with persistent pneumo - CT Chest 03/19 shows decrease in right pleural effusion, multi-loculated hydropneumothorax, improved aeration of the right lung, multiple liver masses - Blood culture negative for 5 days - completed doxy, merrem course - WBC wnl today, afebrile - Solumedrol 20 qd, pulmicort, mucomyst, xopenex, tessalon perles - Echo shows EF 53%, RVSP 61 - Trops are indeterminate - IR, pulm, cardio consult - Home O2 eval tomorrow - Thoracic surgery consult 2) Elevated BUN - Improving - Likely dehydration, continues to improve - Pt has poor appetite, counseling given on increased food/fluid intake - Continue NS to 50cc/hr 3) Urinary retention - Refusing straight cath and borja - Continue flomax 4) Hx of stage 4 non small cell lung cancer - Mets to the liver, lungs, bone - Currently on immunotherapy - Candidate for laser ablation of the right main stem with stent and tumor shelby ulking - Pt/family to make decision in regards to degree of aggressive treatment - Heme/onc on consult - recs appreciated - Psych on consult for depression 5) Mild hyperkalemia - Resolved 6) Tachycardia-resolved - Continue home toprol XL 100mg 7) Conjunctivitis - Resolved - Topical ciprofloxacin - completed 8) PPX/Diet - Lovenox protonix - HHD Patient seen and case discussed with attending, Dr. Scarlet Rodriguez, PGY1 <Flor Novak - Last Filed: 03/28/18 07:53> Objective - Vital Signs/Intake and Output Vital Signs (last 24 hours): Temp Pulse Resp BP Pulse Ox 98.2 F 95 H 16 126/79 95 03/28/18 06:00 03/28/18 06:00 03/28/18 06:00 03/28/18 06:00 03/28/18 06:00 Intake and Output: 03/28/18 03/28/18 06:59 18:59 Intake Total 1200 Output Total 1 Balance 1199 - Medications Medications: Current Medications Acetylcysteine (Acetylcysteine 20%) 4 ml IH BIDRESP [facility] Last Admin: 03/28/18 07:08 Dose: 4 ml Benzonatate (Tessalon Perles) 100 mg PO TID [facility] Last Admin: 03/27/18 18:23 Dose: 100 mg Budesonide (Pulmicort Respules) 0.5 mg IH [id number] [facility] Last Admin: 03/28/18 07:08 Dose: 0.5 mg Enoxaparin Sodium (Lovenox) 40 mg SC DAILY [facility]; Protocol Last Admin: 03/27/18 14:13 Dose: 40 mg Fluoxetine HCl (Prozac) 10 mg PO DAILY [facility] Guaifenesin (Robitussin) 100 mg PO Q4H PRN PRN Reason: Cough Last Admin: 03/24/18 09:07 Dose: 100 mg Sodium Chloride (Sodium Chloride 0.9%) 1,000 mls @ 50 mls/hr IV .Q20H [facility] Last Admin: 03/28/18 05:43 Dose: 50 mls/hr Levalbuterol HCl (Xopenex) 0.63 mg IH TIDRESP [facility] Last Admin: 03/28/18 07:08 Dose: 0.63 mg Methylprednisolone (Solu-Medrol) 20 mg IVP DAILY [facility] Last Admin: 03/27/18 14:13 Dose: 20 mg Morphine Sulfate (Morphine) 1 mg IVP Q6 [facility] Last Admin: 03/27/18 23:02 Dose: 1 mg Nystatin (Nystatin Oral Susp) 5 ml PO QID [facility] Last Admin: 03/27/18 23:02 Dose: 5 ml Pantoprazole Sodium (Protonix Ec Tab) 40 mg PO ACB [facility] Last Admin: 03/28/18 05:43 Dose: 40 mg Polyethylene Glycol (Miralax) 17 gm PO BID [facility] Last Admin: 03/27/18 18:23 Dose: 17 gm Tamsulosin HCl (Flomax) 0.4 mg PO DAILY [facility] Last Admin: 03/27/18 14:15 Dose: 0.4 mg - Labs Labs: 03/28/18 06:30 03/28/18 06:30 PT 16.2 SECONDS (9.4-12.5) H 03/11/18 20:55 INR 1.41 03/11/18 20:55 APTT 28.5 Seconds (25.1-36.5) 03/11/18 20:55 Attending/Attestation - Attestation I have personally seen and examined this patient.: Yes I have fully participated in the care of the patient.: Yes I have reviewed all pertinent clinical information, including history, physical exam and plan: Yes Notes (Text): 03/27/18 67 year old male with past medical history of adenocarcinoma of the lungs, hypertension and anxiety who presented with complaint of shortness of breath. He was found to have right sided recurrent pleural effusion and possible pneumonia. Patient is s/p antibiotics therapy. He had thoracocentesis (03/13/18). Daily CXRs were reviewed. He has chest tube removed earlier this week. Pleurex catheter was planned for today however not enough fluid fluid tunnel pleural catheter as per IR. CXR still shows persistent large pneumothorax and CT surgery evaluation is requested. Heme/onc and pulmonary are following also following patient. PT is following and recommended [facility]. However patient wishes to go home with home services. Patient is full code. Overall prognosis is guarded. Flor Novak MD Hospitalist.
--- NOTE | 2018-03-27 17:58 | CP.PCM.CON ---
History of Present Illness - History of Present Illness History of Present Illness: Surgery Consulting for Dr. Trinidad Patient is 67 yo Male with pmhx of Lung CA w/ mets to liver (s/p ablation) and bone, HTN, EtOH abuse, and anxiety who presented to [facility] on 03/11/18 for dyspnea and was admitted for a right complete passive atelectasis disease in right lung. He was found to have right sided recurrent pleural effusion. Pt had thoracocentesis on (03/13/18). He had chest tube removed on 03/25/18. Surgery was consulted on 03/27/18 after failed attempt of right PleurX insertion due to insufficient pleural fluid. Currently patient reports dyspnea at rest that worsens with exertion. Also notes right sided chest wall tenderness. Other associated symptoms include nausea, vomiting (x1 nonbloody), and decreased appetite. States he was diagnosed with lung cancer in 2013 with multiple rounds radiation and chemo. No other acute concerns at this time. PMHx: HTN, Stage IV Lung CA (2013) PSHx: Appendectomy as child FamilyHx: Father of HEart Attack Mother of Brain Cancer 2 Brothers with Lung CA SocialHx: Admits to 30 Pack year smoking. Quit 30 years ago. Admits to alcohol use. Stoped 5 years ago. Denies any Illicit drug use. ALL: Azithromycin, ketamine, PNC Meds: MAR reviewed Review of Systems - Review of Systems All systems: reviewed and no additional remarkable complaints except (HPI) Past Patient History - Infectious Disease Hx of Infectious Diseases: None - Past Social History Smoking Status: Former Smoker - CARDIAC Hx Hypertension: Yes - PULMONARY Hx Chronic Obstructive Pulmonary Disease (COPD): Yes - HEMATOLOGICAL/ONCOLOGICAL Hx Cancer: Yes (lung CA mets to liver) - MUSCULOSKELETAL/RHEUMATOLOGICAL Hx Falls: No - PSYCHIATRIC Hx Substance Use: No - SURGICAL HISTORY Other/Comment: PORT a CAth (Left) - ANESTHESIA Hx Anesthesia: Yes Meds Allergies/Adverse Reactions: Allergies Allergy/AdvReac Type Severity Reaction Status Date / Time azithromycin AdvReac RASH Verified 03/11/18 20:40 [From Zithromax Z-Denzel] ketamine AdvReac RASH Verified 03/11/18 20:40 Penicillins AdvReac RASH Verified 03/11/18 20:40 - Medications Medications: Current Medications Acetylcysteine (Acetylcysteine 20%) 4 ml IH BIDRESP [facility] Last Admin: 03/27/18 07:22 Dose: 4 ml Benzonatate (Tessalon Perles) 100 mg PO TID [facility] Last Admin: 03/27/18 14:14 Dose: 100 mg Budesonide (Pulmicort Respules) 0.5 mg IH [id number] [facility] Last Admin: 03/27/18 07:22 Dose: 0.5 mg Enoxaparin Sodium (Lovenox) 40 mg SC DAILY [facility]; Protocol Last Admin: 03/27/18 14:13 Dose: 40 mg Fluoxetine HCl (Prozac) 10 mg PO DAILY [facility] Guaifenesin (Robitussin) 100 mg PO Q4H PRN PRN Reason: Cough Last Admin: 03/24/18 09:07 Dose: 100 mg Sodium Chloride (Sodium Chloride 0.9%) 1,000 mls @ 50 mls/hr IV .Q20H [facility] Last Admin: 03/27/18 05:30 Dose: 50 mls/hr Levalbuterol HCl (Xopenex) 0.63 mg IH TIDRESP [facility] Last Admin: 03/27/18 13:51 Dose: 0.63 mg Methylprednisolone (Solu-Medrol) 20 mg IVP DAILY [facility] Last Admin: 03/27/18 14:13 Dose: 20 mg Morphine Sulfate (Morphine) 1 mg IVP Q6 [facility] Last Admin: 03/27/18 11:03 Dose: 1 mg Nystatin (Nystatin Oral Susp) 5 ml PO QID [facility] Last Admin: 03/27/18 14:15 Dose: 5 ml Pantoprazole Sodium (Protonix Ec Tab) 40 mg PO ACB [facility] Last Admin: 03/27/18 06:29 Dose: 40 mg Polyethylene Glycol (Miralax) 17 gm PO BID [facility] Last Admin: 03/27/18 14:14 Dose: 17 gm Tamsulosin HCl (Flomax) 0.4 mg PO DAILY [facility] Last Admin: 03/27/18 14:15 Dose: 0.4 mg Physical Exam - Constitutional Appears: Non-toxic - Head Exam Head Exam: ATRAUMATIC, NORMAL INSPECTION - Eye Exam Eye Exam: EOMI - ENT Exam ENT Exam: Mucous Membranes Dry - Neck Exam Neck exam: Positive for: Full Rom - Respiratory Exam Respiratory Exam: NORMAL BREATHING PATTERN. absent: Accessory Muscle Use, Respiratory Distress Additional comments: Right sided dressing from prior pigtail. No drainage noted. - Cardiovascular Exam Cardiovascular Exam: REGULAR RHYTHM - GI/Abdominal Exam GI & Abdominal Exam: Soft. absent: Tenderness - Extremities Exam Extremities exam: Positive for: normal inspection. Negative for: calf tenderness - Back Exam Back exam: NORMAL INSPECTION - Neurological Exam Neurological exam: Alert, Altered, Oriented x3 - Psychiatric Exam Psychiatric exam: Normal Affect, Normal Mood - Skin Skin Exam: Dry, Intact Results - Vital Signs Recent Vital Signs: Last Vital Signs Temp 98.0 F 03/27/18 06:00 Pulse 101 H 03/27/18 06:00 Resp 20 03/27/18 06:00 BP 99/58 L 03/27/18 06:00 Pulse Ox 97 03/27/18 06:00 - Labs Result Diagrams: 03/27/18 06:40 03/27/18 06:40 Labs: Laboratory Results - last 24 hr 03/27/18 03/27/18 06:40 06:40 WBC 7.5 RBC 3.31 L Hgb 9.1 L Hct 28.9 L MCV 87.3 MCH 27.5 MCHC 31.5 RDW 18.3 H Plt Count 94 L MPV 11.6 H Gran % 81.4 H Lymph % (Auto) 8.9 L [place] % (Auto) 9.3 H Eos % (Auto) 0.4 L Baso % (Auto) 0.0 Gran # 6.12 Lymph # (Auto) 0.7 L [place] # (Auto) 0.7 H Eos # (Auto) 0.0 Baso # (Auto) 0.00 Sodium 135 Potassium 3.6 Chloride 107 Carbon Dioxide 28 Anion Gap 4 L BUN 21 Creatinine 0.7 L Est GFR ( Amer) > 60 Est GFR (Non-Af Amer) > 60 Random Glucose 84 Calcium 7.2 L Total Bilirubin 0.9 AST 29 ALT 63 H Alkaline Phosphatase 100 Total Protein 3.9 L Albumin 1.8 L Globulin 2.1 Albumin/Globulin Ratio 0.9 L - Imaging and Cardiology CT scan - chest Status: Image reviewed by me, Report reviewed by me Chest x-ray Status: Image reviewed by me, Report reviewed by me Assessment & Plan - Assessment and Plan (Free Text) Assessment: 67 yo M with Stage 4 NSCLC presents with right sided multi-loculated hydro- pneumothorax. Plan: -PleurX cath was attempted . There was insufficient fluid to warrant placement. -Recommend repeat CXR and consider reinserting PleurX if effusion develops. -Patient is currently ASx no current intervention needed for Pneumo. - Date & Time Date: 03/27/18 Time: 06:30
--- NOTE | 2018-03-27 19:13 | PN ---
DATE: 03/27/2018 SUBJECTIVE: Shortly, the patient is a 67-year-old male with multiple medical issues including metastatic cancer. Psych consult was called for evaluation of depressive symptoms and possible medication adjustment. This typewriter assembler attempted to speak to the patient for past 2 days, but the patient was very sleepy and drowsy, today this typewriter assembler had a chance to have prolonged conversations with the patient. The patient reported that he feels depressed, hopeless and helpless in regards of his medical issues. The patient denied any thoughts of killing himself or others. The patient reported that Cymbalta is not helping him. This typewriter assembler will suggest to wean the patient off from Cymbalta and start Prozac. The patient was in agreement with that plan. The patient reported that he has no appetite. Reported to have drowsiness and sleepiness. LABORATORY DATA: Reviewed. MEDICATIONS: Reviewed, discussed with the medical team. MENTAL STATUS EXAMINATION: The patient presented to be depressed, flat affect. Mood described as depressed and hopeless. Affect was mood congruent. Thought process seems to be coherent and goal directed. Thought content, the patient denied visual, auditory, or tactile hallucinations. Denied paranoid ideation. The patient denied thoughts of harming himself or others and has intent or plan. Insight and judgment seems to be fair. Impulses are well controlled. IMPRESSION: Rule out mood disorder due to general medical condition, rule out adjustment disorder with depressed and anxious mood, rule out major depressive disorder. PLAN: Medical team already discontinued cymbalta. We will start implementing Prozac. We will follow up and advise accordingly. The patient pose no imminent danger to self or others, but might benefit from medication adjustment. Thank you very much for letting me to participate in the care of your patient. We will follow up and advise accordingly. Nicole Mi MD [facility]
[2018-03-28] MEDS: Sodium Chloride 0.9% 1,000 ML IV SCH ×3 (00:28→21:15)
[2018-03-28] MEDS: Pantoprazole 40 mg EC Tab PO SCH (05:43)
[2018-03-28 06:32] LABS: ARTERIAL BLOOD GAS HCO3 25.9 mmol/L (21-28); ARTERIAL BLOOD GAS HEMOGLOBIN 9.3 g/dL (11.7-17.4); ARTERIAL BLOOD GAS O2 CAPACITY 12.8 mL/dl (16-24); ARTERIAL BLOOD GAS O2 CONTENT 12.8 ML/dl (15-23); ARTERIAL BLOOD GAS O2 SAT 99.8 % (95-98); ARTERIAL BLOOD GAS PCO2 40 mm/Hg (35-45); ARTERIAL BLOOD GAS PH 7.42 (7.35-7.45); ARTERIAL BLOOD GAS TCO2 27.1 mmol.L (22-28)
[2018-03-28 06:52] LABS: GRAN # 6.71 (1.4-6.5); GRAN % 85.8 % (50.0-68.0); HEMOGLOBIN 9.1 g/dL (14.0-18.0); LYMPH # 0.6 (1.2-3.4); LYMPH % 8.2 % (22.0-35.0); MEAN CELL VOLUME 86.3 fl (80.0-105.0); MEAN CORPUSCULAR HEMOGLOBIN 27.7 pg (25.0-35.0); MEAN CORPUSCULAR HGB CONC 32.2 g/dl (31.0-37.0); MEAN PLATELET VOLUME 11.4 fl (7.0-11.0); MONO # 0.5 (0.1-0.6); RBC 3.28 10^6/uL (3.5-6.1); RED CELL DISTRIBUTION WIDTH 18.7 % (11.5-14.5); WHITE BLOOD COUNT 7.8 10^3/uL (4.5-11.0)
[2018-03-28] MEDS: Levalbuterol 0.63 MG/3 ML Inhal Soln UD IH SCH ×4 (07:08→20:54)
[2018-03-28] MEDS: Acetylcysteine 20% Inhal Soln (4ml) IH SCH ×2 (07:08→20:54)
[2018-03-28] MEDS: Budesonide 0.5 mg/2 ml Inhal Susp UD IH SCH ×2 (07:08→20:54)
[2018-03-28 07:43] LABS: ALB/GLOB RATIO 0.9 (1.1-1.8); ALBUMIN 1.9 g/dL (3.0-4.8); ALT/SGPT 60 U/L (7-56); AST/SGOT 23 U/L (17-59); BLOOD UREA NITROGEN 20 mg/dL (7-21); CALCIUM 7.1 mg/dL (8.4-10.5); GFR NON-AFRICAN AMERICAN > 60
--- NOTE | 2018-03-28 08:22 | CP.PCM.PN ---
Subjective - Date & Time of Evaluation Date of Evaluation: 03/28/18 Time of Evaluation: 08:09 - Subjective Subjective: Thoracic surgery consult note- Dr. Trinidad Patient seen and examined at bedside. Remains on 3L NC saturating 94%. Denies fevers, chills, nausea, vomiting, diarrhea. Objective - Vital Signs/Intake and Output Vital Signs (last 24 hours): Temp Pulse Resp BP Pulse Ox 98.2 F 95 H 16 126/79 95 03/28/18 06:00 03/28/18 06:00 03/28/18 06:00 03/28/18 06:00 03/28/18 06:00 Intake and Output: 03/28/18 03/28/18 06:59 18:59 Intake Total 1200 Output Total 1 Balance 1199 - Medications Medications: Current Medications Acetylcysteine (Acetylcysteine 20%) 4 ml IH BIDRESP REPLACED BY [facility] Last Admin: 03/28/18 07:08 Dose: 4 ml Benzonatate (Tessalon Perles) 100 mg PO TID REPLACED BY [facility] Last Admin: 03/27/18 18:23 Dose: 100 mg Budesonide (Pulmicort Respules) 0.5 mg IH [id number] REPLACED BY [facility] Last Admin: 03/28/18 07:08 Dose: 0.5 mg Enoxaparin Sodium (Lovenox) 40 mg SC DAILY REPLACED BY [facility]; Protocol Last Admin: 03/27/18 14:13 Dose: 40 mg Fluoxetine HCl (Prozac) 10 mg PO DAILY REPLACED BY [facility] Guaifenesin (Robitussin) 100 mg PO Q4H PRN PRN Reason: Cough Last Admin: 03/24/18 09:07 Dose: 100 mg Sodium Chloride (Sodium Chloride 0.9%) 1,000 mls @ 50 mls/hr IV .Q20H REPLACED BY [facility] Last Admin: 03/28/18 05:43 Dose: 50 mls/hr Levalbuterol HCl (Xopenex) 0.63 mg IH TIDRESP REPLACED BY [facility] Last Admin: 03/28/18 07:08 Dose: 0.63 mg Methylprednisolone (Solu-Medrol) 20 mg IVP DAILY REPLACED BY [facility] Last Admin: 03/27/18 14:13 Dose: 20 mg Morphine Sulfate (Morphine) 1 mg IVP Q6 REPLACED BY [facility] Last Admin: 03/27/18 23:02 Dose: 1 mg Nystatin (Nystatin Oral Susp) 5 ml PO QID REPLACED BY [facility] Last Admin: 03/27/18 23:02 Dose: 5 ml Pantoprazole Sodium (Protonix Ec Tab) 40 mg PO ACB REPLACED BY [facility] Last Admin: 03/28/18 05:43 Dose: 40 mg Polyethylene Glycol (Miralax) 17 gm PO BID REPLACED BY [facility] Last Admin: 03/27/18 18:23 Dose: 17 gm Tamsulosin HCl (Flomax) 0.4 mg PO DAILY REPLACED BY [facility] Last Admin: 03/27/18 14:15 Dose: 0.4 mg - Labs Labs: 03/28/18 06:30 03/28/18 06:30 PT 16.2 SECONDS (9.4-12.5) H 03/11/18 20:55 INR 1.41 03/11/18 20:55 APTT 28.5 Seconds (25.1-36.5) 03/11/18 20:55 - Constitutional Appears: Non-toxic, No Acute Distress, Chronically Ill - Head Exam Head Exam: ATRAUMATIC - Eye Exam Eye Exam: EOMI. absent: Scleral icterus - ENT Exam ENT Exam: Mucous Membranes Moist - Respiratory Exam Respiratory Exam: absent: Accessory Muscle Use, Chest Wall Tenderness - Cardiovascular Exam Cardiovascular Exam: REGULAR RHYTHM. absent: Bradycardia, Tachycardia - GI/Abdominal Exam GI & Abdominal Exam: Soft. absent: Distended, Firm, Guarding, Rigid, Tenderness - Extremities Exam Extremities Exam: absent: Calf Tenderness - Neurological Exam Neurological Exam: Alert, Awake - Psychiatric Exam Psychiatric exam: Normal Affect Assessment and Plan - Assessment and Plan (Free Text) Assessment: 67M with Stage 4 NSCLC presents with right sided multi-loculated hydro-pneumothorax. Plan: -PleurX cath was attempted . There was insufficient fluid to warrant placement. -Will obtain repeat Chest CT to see if interval change -pending results of imaging and patients wishes may plan for intervention -current pneumo remains stable on chest xrays -further recs per Dr. Vivi Alvarez PGY2
[2018-03-28] MEDS ORDERED: Iohexol 350 MG/100 ML VIAL ONE (08:58)
--- NOTE | 2018-03-28 09:07 | CP.PCM.PN ---
Subjective - Date & Time of Evaluation Date of Evaluation: 03/28/18 Time of Evaluation: 09:04 - Subjective Subjective: PGY-2 heme/onc progress note No acute events noted overnight. Daughter at bedside. Patient denied pain but stated he felt weak. Objective - Vital Signs/Intake and Output Vital Signs (last 24 hours): Temp Pulse Resp BP Pulse Ox 98.2 F 100 H 18 126/79 99 03/28/18 06:00 03/28/18 06:00 03/28/18 06:00 03/28/18 06:00 03/28/18 06:00 Intake and Output: 03/28/18 03/28/18 06:59 18:59 Intake Total 1200 Output Total 1 Balance 1199 - Medications Medications: Current Medications Acetylcysteine (Acetylcysteine 20%) 4 ml IH BIDRESP [facility] Last Admin: 03/28/18 07:08 Dose: 4 ml Benzonatate (Tessalon Perles) 100 mg PO TID [facility] Last Admin: 03/27/18 18:23 Dose: 100 mg Budesonide (Pulmicort Respules) 0.5 mg IH [id number] [facility] Last Admin: 03/28/18 07:08 Dose: 0.5 mg Enoxaparin Sodium (Lovenox) 40 mg SC DAILY [facility]; Protocol Last Admin: 03/27/18 14:13 Dose: 40 mg Fluoxetine HCl (Prozac) 10 mg PO DAILY [facility] Guaifenesin (Robitussin) 100 mg PO Q4H PRN PRN Reason: Cough Last Admin: 03/24/18 09:07 Dose: 100 mg Sodium Chloride (Sodium Chloride 0.9%) 1,000 mls @ 50 mls/hr IV .Q20H [facility] Last Admin: 03/28/18 05:43 Dose: 50 mls/hr Levalbuterol HCl (Xopenex) 0.63 mg IH TIDRESP [facility] Last Admin: 03/28/18 07:08 Dose: 0.63 mg Methylprednisolone (Solu-Medrol) 20 mg IVP DAILY [facility] Last Admin: 03/27/18 14:13 Dose: 20 mg Morphine Sulfate (Morphine) 1 mg IVP Q6 [facility] Last Admin: 03/27/18 23:02 Dose: 1 mg Nystatin (Nystatin Oral Susp) 5 ml PO QID [facility] Last Admin: 03/27/18 23:02 Dose: 5 ml Pantoprazole Sodium (Protonix Ec Tab) 40 mg PO ACB [facility] Last Admin: 03/28/18 05:43 Dose: 40 mg Polyethylene Glycol (Miralax) 17 gm PO BID [facility] Last Admin: 03/27/18 18:23 Dose: 17 gm Tamsulosin HCl (Flomax) 0.4 mg PO DAILY [facility] Last Admin: 03/27/18 14:15 Dose: 0.4 mg - Labs Labs: 03/28/18 06:30 03/28/18 06:30 PT 16.2 SECONDS (9.4-12.5) H 03/11/18 20:55 INR 1.41 03/11/18 20:55 APTT 28.5 Seconds (25.1-36.5) 03/11/18 20:55 - Additional Findings Additional findings: - Constitutional Appears: Non-toxic, No Acute Distress, Chronically Ill - Head Exam Head Exam: ATRAUMATIC, NORMAL INSPECTION - Eye Exam Eye Exam: EOMI, Normal appearance, PERRL - ENT Exam ENT Exam: Mucous Membranes Moist - Neck Exam Neck Exam: Full ROM - Respiratory Exam Respiratory Exam: Decreased Breath Sounds, Rales b/l, NORMAL BREATHING PATTERN - Cardiovascular Exam Cardiovascular Exam: REGULAR RHYTHM, +S1, +S2. absent: Bradycardia, Tachycardia, Murmur - GI/Abdominal Exam GI & Abdominal Exam: Soft, Normal Bowel Sounds. absent: Tenderness - Extremities Exam Extremities Exam: Full ROM, Normal Capillary Refill, Normal Inspection, edema in legs 2+, left elbow edematous compared to right - Neurological Exam Neurological Exam: Alert, Awake - Psychiatric Exam Psychiatric exam: Normal Affect, Normal Mood - Skin Skin Exam: Dry, Intact, Normal Color, Warm, right flank covered in dressing (s/p chest tube removal) Assessment and Plan - Assessment and Plan (Free Text) Plan: Mr. Lambert is a 67 y/o ruben with stage IV NSCLC with hepatic mets s/p RFA currently admitted with recurrent right pleural effusion: Stage IV NSCLC c/b right sided multi-loculated hydro-pneumothorax -with hepatic and bone mets s/p RFA -recurrent right pleural effusion thought to be malignant potentially vs infectious (cytology pending) * s/p thoracentesis 03/13/18 with 1.9L removed * pleural fluid cytology from previous thoracentesis on 03/14/18: rare atypical cells; due to paucity of cells further workup is not possible -chest tube right pleural space placed 03/18/18 -> chest tube removed 03/25/18 -> the site was sutured given there was a leak * convert to pleurX catheter when output stable and right lung re-expands * it should be noted that lung expansion difficult due to tumor burden compressing right main stem bronchus * tentative plan is for pleurX catheter placement with Dr Izquierdo - dependent on discussion between Dr Izquierdo and family/patient * Patient is now agreeable to Aspira catheter HOWEVER Dr Izquierdo evaluated ultrasound and deemed there is not enough fluid to warrant a pleurX catheter * Surgery consulted 03/27/18 for failed pleurX catheter placement -> insufficient fluid to warrant placement -currently on immunotherapy -candidate for laser ablation of the right main stem with stent and tumor debulking -patient/family to make decision in regards to degree of aggressive treatment - as of now patient indicated he wants all treatment available Left Elbow Swelling -Duplex of left extremity 03/22/18 was negative for DVT -continue lovenox 40mg sc qd Case discussed with Dr Vaughn
--- NOTE | 2018-03-28 10:32 | RAD ---
Date of service: 03/28/2018 HISTORY: chest tube, hx lung cancer COMPARISON: 03/27/2018 FINDINGS: LUNGS: There is no change in the pattern of the right-sided pneumothorax. PLEURA: As above CARDIOVASCULAR: No aortic atherosclerotic calcification present. Normal cardiac size. No pulmonary vascular congestion. OSSEOUS STRUCTURES: No significant abnormalities. VISUALIZED UPPER ABDOMEN: Normal. OTHER FINDINGS: None. IMPRESSION: There is a large right-sided pneumothorax unchanged.
[2018-03-28] MEDS: Morphine 2 mg/ml ISec IVP SCH ×2 (10:33→17:15)
[2018-03-28] MEDS: POLYETHYLENE GLYCOL 3350 17 GM/Dose PACKET PO SCH ×2 (10:55→18:24)
[2018-03-28] MEDS: Enoxaparin 40 mg Syringe SC SCH (11:02)
[2018-03-28] MEDS: Nystatin 100,000 Units/ml Oral Susp 5 ml UD PO SCH ×4 (11:03→21:58)
--- NOTE | 2018-03-28 11:03 | CT ---
Date of service: 03/28/2018 PROCEDURE: CT Chest with and without contrast HISTORY: Evaulation of Right lung- interval imaging COMPARISON: 03/19/2018 TECHNIQUE: Contiguous axial images were obtained through the chest with intravenous contrast enhancement. Sagittal and coronal reconstructions were performed. IV contrast: 100 cc of Omni 350 Radiation dose: Total exam DLP = 1209.67 mGy-cm. This CT exam was performed using one or more of the following dose reduction techniques: Automated exposure control, adjustment of the mA and/or kV according to patient size, and/or use of iterative reconstruction technique. FINDINGS: LUNGS: There is a large right-sided hydropneumothorax. There is complete atelectasis of the right lung. There is no aerated lung visualized. There is no evidence of an endobronchial lesion. MEDIASTINUM: Unremarkable thoracic aorta. No aneurysm or dissection. Normal sized heart. Main pulmonary artery unremarkable. No vascular congestion. No lymphadenopathy. No aortic atherosclerotic calcification or mural plaque present. PLEURA: Large right-sided hydropneumothorax. Moderate size pericardial effusion measuring 13 mm in thickness BONES: No fracture. No destructive lesion. UPPER ABDOMEN: There is a 4 cm hypodense lesion in the right lobe of the liver. This is unchanged. OTHER FINDINGS: None. IMPRESSION: There is a large right-sided hydropneumothorax. There is complete atelectasis of the right lung. There is no aerated lung visualized. There is no evidence of an endobronchial lesion.
[2018-03-28] MEDS: MethylPREDNISolone 40 mg Vial IVP SCH (12:04)
--- NOTE | 2018-03-28 12:04 | CP.PCM.PCO ---
Addendum Addendum: Patient declined psychiatric follow up this morning. Will re-attempt later this weekend. 03/28/18 12:03
--- NOTE | 2018-03-28 12:27 | PN ---
DATE: 03/28/2018 PULMONARY PROGRESS NOTE REFERRING PHYSICIAN: Piero Novak MD SUBJECTIVE: The patient is lying in bed. No acute distress. No overnight events reported. The patient went for Pleurx catheter placement yesterday which was not able to be done as there was insufficient fluid to warrant placement. The patient reports cough is better does have at times shortness of breath. No headache, rhinitis, chest pain, abdominal pain, nausea, vomiting, diarrhea, leg pain or leg swelling reported. OBJECTIVE: GENERAL: No acute distress. VITAL SIGNS: Blood pressure 126/79, pulse 100, temperature 98.2 and oxygen saturation 99%. HEENT: Moist mucous membranes. NECK: Supple. No JVD. LUNGS: Decreased breath sounds on the right, few rhonchi on the left. CARDIOVASCULAR: S1 and S2, audible. ABDOMEN: Soft and nontender. No distension. No organomegaly. EXTREMITIES: Some bilateral upper and lower extremity edema. NEUROLOGIC: Awake, alert and verbal. Follows commands. MEDICATIONS: Reviewed. Mucomyst 4 mL inhalation twice a day, Tessalon Perles 100 mg 3 times a day, Pulmicort 0.5 mg inhalation every 12 hours, Lovenox 40 mg subcutaneous daily, Prozac 10 mg daily, Robitussin 100 mg every 4 hours p.r.n., Xopenex 0.63 mg inhalation 3 times a day, Solu-Medrol 20 mg daily, morphine 1 mg IV push every 6 hours, nystatin oral suspension 5 mL 4 times a day, Protonix 40 mg daily, MiraLax 17 g twice a day, sodium chloride 0.9% 1000 mL with 50 mL per hour and Flomax 0.4 mg daily. LABORATORY DATA: WBC 7.8, RBC 3.28, hemoglobin 9.1, hematocrit 28.3 and platelets 100. PCO2 40, PO2 118, HCO3 25. ABG; pH 7.42. Sodium 137, potassium 3.8, chloride 108, carbon dioxide 28, anion gap 5, BUN 20, creatinine 0.7, GFR greater than 60, random glucose 99, calcium 7.1, total bilirubin 0.7, AST 23, ALT 60, alkaline phosphatase 107, total protein 3.9, albumin 1.9, globulin 2 and albumin-globulin ratio 0.9. Chest x-ray shows large right-sided pneumothorax unchanged. Chest CT shows large right-sided hydropneumothorax complete atelectasis of the right lung. There is no aerated lung visualized. There is no evidence of an endobronchial lesion. IMPRESSION AND PLAN: Metastatic stage IV nonsmall cell carcinoma of the lung, pleural effusion status post thoracentesis, status post insertion of chest tube which has since been removed. Pleurx catheter was attempted to be placed, not enough fluid noted, therefore Pleurx was not placed. The patient has pneumothorax. Continue inhaled bronchodilators, gastric prophylaxis, deep venous thrombosis prophylaxis, head of bed elevated 45 degrees. Thoracic surgeon's note appreciated. Family and patient to decide whether they want further aggressive care at this time. This patient was seen and examined with Dr. Read. Discussed assessment and plan as described above. Thank you for this consult. We will follow with you. Mark Luke APN Fred Read MD [facility]
--- NOTE | 2018-03-28 14:18 | CP.PCM.APN ---
Subjective - Date & Time of Evaluation Date of Evaluation: 03/28/18 Time of Evaluation: 11:15 - Subjective Subjective: pt jeb examined in bed states he does not know how he feels today discuss kirstin vs tcu with pt, says he will discuss with Review of Systems - Constitutional Constitutional: Fatigue Objective - Vital Signs/Intake and Output Vital Signs (last 24 hours): Temp Pulse Resp BP Pulse Ox 98.2 F 100 H 18 126/79 99 03/28/18 06:00 03/28/18 06:00 03/28/18 06:00 03/28/18 06:00 03/28/18 06:00 Intake and Output: 03/28/18 03/28/18 06:59 18:59 Intake Total 1200 Output Total 1 Balance 1199 - Medications Medications: Current Medications Acetylcysteine (Acetylcysteine 20%) 4 ml IH BIDRESP [facility] Last Admin: 03/28/18 07:08 Dose: 4 ml Benzonatate (Tessalon Perles) 100 mg PO TID [facility] Last Admin: 03/28/18 14:02 Dose: 100 mg Budesonide (Pulmicort Respules) 0.5 mg IH [id number] [facility] Last Admin: 03/28/18 07:08 Dose: 0.5 mg Docusate Sodium (Colace) 100 mg PO DAILY [facility] Last Admin: 03/28/18 14:02 Dose: 100 mg Enoxaparin Sodium (Lovenox) 40 mg SC DAILY [facility]; Protocol Last Admin: 03/28/18 11:02 Dose: 40 mg Fluoxetine HCl (Prozac) 10 mg PO DAILY [facility] Last Admin: 03/28/18 11:03 Dose: 10 mg Guaifenesin (Robitussin) 100 mg PO Q4H PRN PRN Reason: Cough Last Admin: 03/24/18 09:07 Dose: 100 mg Sodium Chloride (Sodium Chloride 0.9%) 1,000 mls @ 50 mls/hr IV .Q20H [facility] Last Admin: 03/28/18 05:43 Dose: 50 mls/hr Levalbuterol HCl (Xopenex) 0.63 mg IH TIDRESP [facility] Last Admin: 03/28/18 13:32 Dose: 0.63 mg Methylprednisolone (Solu-Medrol) 20 mg IVP DAILY [facility] Last Admin: 03/28/18 12:04 Dose: 20 mg Morphine Sulfate (Morphine) 1 mg IVP Q6 [facility] Last Admin: 03/28/18 10:33 Dose: 1 mg Nystatin (Nystatin Oral Susp) 5 ml PO QID [facility] Last Admin: 03/28/18 11:03 Dose: 5 ml Pantoprazole Sodium (Protonix Ec Tab) 40 mg PO ACB [facility] Last Admin: 03/28/18 05:43 Dose: 40 mg Polyethylene Glycol (Miralax) 17 gm PO BID [facility] Last Admin: 03/28/18 10:55 Dose: Not Given Tamsulosin HCl (Flomax) 0.4 mg PO DAILY [facility] Last Admin: 03/28/18 11:02 Dose: 0.4 mg - Labs Labs: 03/28/18 06:30 03/28/18 06:30 PT 16.2 SECONDS (9.4-12.5) H 03/11/18 20:55 INR 1.41 03/11/18 20:55 APTT 28.5 Seconds (25.1-36.5) 03/11/18 20:55 - Constitutional Appears: No Acute Distress, Chronically Ill - Respiratory Exam Respiratory Exam: Decreased Breath Sounds, NORMAL BREATHING PATTERN - Cardiovascular Exam Cardiovascular Exam: +S1, +S2 - GI/Abdominal Exam GI & Abdominal Exam: Soft - Neurological Exam Neurological Exam: Alert, Awake - Psychiatric Exam Psychiatric exam: Flat Affect Assessment and Plan - Assessment and Plan (Free Text) Plan: 67 yr old male with pmh sig for stage Iv lung ca with mets to liver and bone admitted to the ICU for mgmt after presenting to the ED with worsening SOB and hypoxic resp failure, sepsis and new onset chf , right lung white out and pleural effusion pt s/p thoracentesis and right chest tube with cardiac, renal, pul and oncology consultations #right pleural effusion s/p thoracentesis and now s/p right chest tube removal 03/25. ct shows large hydropneunothorax , discuss plan with resident spoke to IR for review of Ct films IR will discuss with PMD team re: pleurex or not #sepsis/right lung pne s/p iv antibiotic, stable #stage IV metastatic cancer Oncology note rev'd and recommendations noted # urinary retention Flomax therapy prn bladder scan p.t recommends kirstin but wants home- meeting today with pt/sw nathalia cm planned discuss with Cm Tiara will continue to follow clinically Nina Belinfanti DNP, [employer] MAKING [employer]MENT BPCI/TIC - BPCIA/TIC Educated pt/family on BPCIA/CIR/Med to Bed Programs: Yes Flyers given, including CMS Beneficiary letter: Yes Pt/family verbalized understanding & agreed to program: Yes
--- NOTE | 2018-03-28 15:04 | CP.PCM.PN ---
<Paloma Rodriguez - Last Filed: 03/29/18 01:03> Subjective - Date & Time of Evaluation Date of Evaluation: 03/29/18 Time of Evaluation: 01:03 - Subjective Subjective: Paloma Rodriguez, PGY-1 Medicine Progress Note for Dr. Novak: Pt was seen and examined this AM at bedside. Pt did not have pleur-x placement because the pt did not have enough fluid for drainage. Pt also had leak sealed with 3 stitches placed by IR. He also states that he is tolerating his diet and has no associated n/v. He also denies fevers, chills, headache, chest pain, cough, abd pain, n/v, c/d, or dysuria. Objective - Vital Signs/Intake and Output Vital Signs (last 24 hours): Temp Pulse Resp BP Pulse Ox 98.2 F 100 H 18 126/79 99 03/28/18 06:00 03/28/18 06:00 03/28/18 06:00 03/28/18 06:00 03/28/18 06:00 Intake and Output: 03/28/18 03/28/18 06:59 18:59 Intake Total 1200 Output Total 1 Balance 1199 - Medications Medications: Current Medications Acetylcysteine (Acetylcysteine 20%) 4 ml IH BIDRESP [facility] Last Admin: 03/28/18 07:08 Dose: 4 ml Benzonatate (Tessalon Perles) 100 mg PO TID [facility] Last Admin: 03/28/18 14:02 Dose: 100 mg Budesonide (Pulmicort Respules) 0.5 mg IH [id number] [facility] Last Admin: 03/28/18 07:08 Dose: 0.5 mg Docusate Sodium (Colace) 100 mg PO DAILY [facility] Last Admin: 03/28/18 14:02 Dose: 100 mg Enoxaparin Sodium (Lovenox) 40 mg SC DAILY [facility]; Protocol Last Admin: 03/28/18 11:02 Dose: 40 mg Fluoxetine HCl (Prozac) 10 mg PO DAILY [facility] Last Admin: 03/28/18 11:03 Dose: 10 mg Guaifenesin (Robitussin) 100 mg PO Q4H PRN PRN Reason: Cough Last Admin: 03/24/18 09:07 Dose: 100 mg Sodium Chloride (Sodium Chloride 0.9%) 1,000 mls @ 50 mls/hr IV .Q20H [facility] Last Admin: 03/28/18 05:43 Dose: 50 mls/hr Levalbuterol HCl (Xopenex) 0.63 mg IH TIDRESP [facility] Last Admin: 03/28/18 13:32 Dose: 0.63 mg Methylprednisolone (Solu-Medrol) 20 mg IVP DAILY [facility] Last Admin: 03/28/18 12:04 Dose: 20 mg Morphine Sulfate (Morphine) 1 mg IVP Q6 [facility] Last Admin: 03/28/18 10:33 Dose: 1 mg Nystatin (Nystatin Oral Susp) 5 ml PO QID [facility] Last Admin: 03/28/18 11:03 Dose: 5 ml Pantoprazole Sodium (Protonix Ec Tab) 40 mg PO ACB [facility] Last Admin: 03/28/18 05:43 Dose: 40 mg Polyethylene Glycol (Miralax) 17 gm PO BID [facility] Last Admin: 03/28/18 10:55 Dose: Not Given Tamsulosin HCl (Flomax) 0.4 mg PO DAILY [facility] Last Admin: 03/28/18 11:02 Dose: 0.4 mg - Labs Labs: 03/28/18 06:30 03/28/18 06:30 PT 16.2 SECONDS (9.4-12.5) H 03/11/18 20:55 INR 1.41 03/11/18 20:55 APTT 28.5 Seconds (25.1-36.5) 03/11/18 20:55 - Constitutional Appears: Non-toxic, No Acute Distress, Cachectic, Chronically Ill - Head Exam Head Exam: ATRAUMATIC, NORMAL INSPECTION, NORMOCEPHALIC - Eye Exam Eye Exam: EOMI, Normal appearance, PERRL - Respiratory Exam Respiratory Exam: Decreased Breath Sounds (Worse R than L), NORMAL BREATHING PATTERN. absent: Accessory Muscle Use, Rales, Rhonchi, Wheezes, Respiratory Distress, Stridor - Cardiovascular Exam Cardiovascular Exam: RRR, +S1, +S2. absent: Gallop, Rubs - GI/Abdominal Exam GI & Abdominal Exam: Soft, Normal Bowel Sounds. absent: Firm, Guarding, Rigid, Tenderness - Extremities Exam Extremities Exam: Normal Inspection - Back Exam Back Exam: NORMAL INSPECTION. absent: CVA tenderness (L), CVA tenderness (R) - Neurological Exam Neurological Exam: Alert, Awake, Oriented x3 - Psychiatric Exam Psychiatric exam: Normal Affect, Normal Mood - Skin Skin Exam: Dry, Normal Color, Warm Assessment and Plan - Assessment and Plan (Free Text) Assessment: Pt is a 67yo M with Pmhx of adenocarcinoma with mets to liver (s/p ablation), lungs, and bone, HTN, EtOH abuse, Anxeiety, presented to [facility] on 03/11/18 with complaints of worsening SOB x2 weeks. Pt was admitted to ICU for management and treatment of hypoxemic respiratory failure. Pt has recurrent pleural effusion, likely malignant, was now transferred to floors since pt was stable enough to be transferred out of ICU. Pts chest tube was pulled and had some reaccumulation noted on CXR. Pt had CT chest today which showed large hydropneumothorax. CT surgery wants to do VATS procedure for pt on Saturday. Plan: 1) Right pleural effusion - Recurred - CT Chest 03/19 shows decrease in right pleural effusion, multi-loculated hydropneumothorax, improved aeration of the right lung, multiple liver masses - Chest tube was pulled - Jossue-x cath was unable to be placed due to small amount of fluid - Chest CT 03/28 showed large hydropneumothorax - Blood culture negative for 5 days - completed doxy, merrem course - WBC wnl today, afebrile - Solumedrol 20 qd, pulmicort, mucomyst, xopenex, tessalon perles - Echo shows EF 53%, RVSP 61 - Trops are indeterminate - IR, pulm, cardio consult - Home O2 eval tomorrow - Thoracic surgery consult, VATS on Saturday 2) Elevated BUN - Improving - Likely dehydration, continues to improve - Pt has poor appetite, counseling given on increased food/fluid intake - Continue NS to 50cc/hr 3) Urinary retention - Refusing straight cath and borja - Continue flomax 4) Hx of stage 4 non small cell lung cancer - Mets to the liver, lungs, bone - Currently on immunotherapy - Candidate for laser ablation of the right main stem with stent and tumor debulking - Pt/family to make decision in regards to degree of aggressive treatment - Heme/onc on consult - recs appreciated - Psych on consult for depression 5) Mild hyperkalemia - Resolved 6) Tachycardia-resolved - Continue home toprol XL 100mg 7) Conjunctivitis - Resolved - Topical ciprofloxacin - completed 8) PPX/Diet - Lovenox protonix - HHD Patient seen and case discussed with attending, Dr. Scarlet Rodriguez, PGY1 <Flor Novak - Last Filed: 03/29/18 07:43> Objective - Vital Signs/Intake and Output Vital Signs (last 24 hours): Temp Pulse Resp BP Pulse Ox 98.6 F 110 H 18 111/59 L 97 03/28/18 22:20 03/28/18 22:20 03/28/18 22:20 03/28/18 22:20 03/28/18 22:20 - Medications Medications: Current Medications Acetylcysteine (Acetylcysteine 20%) 4 ml IH BIDRESP [facility] Last Admin: 03/29/18 07:01 Dose: 4 ml Benzonatate (Tessalon Perles) 100 mg PO TID [facility] Last Admin: 03/28/18 18:23 Dose: 100 mg Budesonide (Pulmicort Respules) 0.5 mg IH [id number] [facility] Last Admin: 03/29/18 07:01 Dose: 0.5 mg Docusate Sodium (Colace) 100 mg PO DAILY [facility] Last Admin: 03/28/18 14:02 Dose: 100 mg Enoxaparin Sodium (Lovenox) 40 mg SC DAILY [facility]; Protocol Last Admin: 03/28/18 11:02 Dose: 40 mg Fluoxetine HCl (Prozac) 10 mg PO DAILY [facility] Last Admin: 03/28/18 11:03 Dose: 10 mg Guaifenesin (Robitussin) 100 mg PO Q4H PRN PRN Reason: Cough Last Admin: 03/24/18 09:07 Dose: 100 mg Sodium Chloride (Sodium Chloride 0.9%) 1,000 mls @ 50 mls/hr IV .Q20H [facility] Last Admin: 03/28/18 21:15 Dose: 50 mls/hr Levalbuterol HCl (Xopenex) 0.63 mg IH TIDRESP [facility] Last Admin: 03/29/18 07:01 Dose: 0.63 mg Methylprednisolone (Solu-Medrol) 20 mg IVP DAILY [facility] Last Admin: 03/28/18 12:04 Dose: 20 mg Morphine Sulfate (Morphine) 2 mg IVP Q6H PRN PRN Reason: Pain, severe (8-10) Last Admin: 03/29/18 01:54 Dose: 2 mg Nystatin (Nystatin Oral Susp) 5 ml PO QID [facility] Last Admin: 03/28/18 21:58 Dose: 5 ml Oxycodone/Acetaminophen (Percocet 5/325 Mg Tab) 1 tab PO Q6H PRN PRN Reason: Pain, moderate (4-7) Stop: 03/31/18 20:29 Pantoprazole Sodium (Protonix Ec Tab) 40 mg PO ACB [facility] Last Admin: 03/28/18 05:43 Dose: 40 mg Polyethylene Glycol (Miralax) 17 gm PO BID [facility] Last Admin: 03/28/18 18:24 Dose: Not Given Tamsulosin HCl (Flomax) 0.4 mg PO DAILY [facility] Last Admin: 03/28/18 11:02 Dose: 0.4 mg - Labs Labs: 03/28/18 06:30 03/28/18 06:30 PT 16.2 SECONDS (9.4-12.5) H 03/11/18 20:55 INR 1.41 03/11/18 20:55 APTT 28.5 Seconds (25.1-36.5) 03/11/18 20:55 Attending/Attestation - Attestation I have personally seen and examined this patient.: Yes I have fully participated in the care of the patient.: Yes I have reviewed all pertinent clinical information, including history, physical exam and plan: Yes Notes (Text): 03/28/18 67 year old male with past medical history of adenocarcinoma of the lungs, hypertension and anxiety who presented with complaint of shortness of breath. He was found to have right sided recurrent pleural effusion and possible pneumonia. Patient is s/p antibiotics therapy. He had thoracocentesis (03/13/18). Daily CXRs were reviewed. He has chest tube removed earlier this week. Pleurex catheter was planned for yesterday however not enough fluid fluid tunnel pleural catheter as per IR. CT chest reviewed today showing large hydropneumothorax. CT surgery is following and plan for possible VATS on Saturday. Heme/onc and pulmonary are also following. PT is following and recommended [facility]. However patient wishes to go home with home services. Patient is full code. Overall prognosis is guarded. Anwar Scarlet, MD Hospitalist.
--- NOTE | 2018-03-28 16:34 | CP.PCM.PN ---
Subjective - Date & Time of Evaluation Date of Evaluation: 03/28/18 Time of Evaluation: 14:45 - Subjective Subjective: Still feels weak, no fevers, no diarrhea. Objective - Vital Signs/Intake and Output Vital Signs (last 24 hours): Temp Pulse Resp BP Pulse Ox 98.0 F 101 H 20 99/58 L 97 03/27/18 06:00 03/27/18 06:00 03/27/18 06:00 03/27/18 06:00 03/27/18 06:00 Intake and Output: 03/27/18 03/27/18 06:59 18:59 Intake Total 300 488 Balance 300 488 - Medications Medications: Current Medications Acetylcysteine (Acetylcysteine 20%) 4 ml IH BIDRESP [facility] Last Admin: 03/27/18 07:22 Dose: 4 ml Benzonatate (Tessalon Perles) 100 mg PO TID [facility] Last Admin: 03/26/18 17:20 Dose: 100 mg Budesonide (Pulmicort Respules) 0.5 mg IH [id number] [facility] Last Admin: 03/27/18 07:22 Dose: 0.5 mg Enoxaparin Sodium (Lovenox) 40 mg SC DAILY [facility]; Protocol Last Admin: 03/26/18 10:43 Dose: 40 mg Guaifenesin (Robitussin) 100 mg PO Q4H PRN PRN Reason: Cough Last Admin: 03/24/18 09:07 Dose: 100 mg Sodium Chloride (Sodium Chloride 0.9%) 1,000 mls @ 50 mls/hr IV .Q20H [facility] Last Admin: 03/27/18 05:30 Dose: 50 mls/hr Levalbuterol HCl (Xopenex) 0.63 mg IH TIDRESP [facility] Last Admin: 03/27/18 07:22 Dose: 0.63 mg Methylprednisolone (Solu-Medrol) 20 mg IVP DAILY [facility] Last Admin: 03/26/18 10:43 Dose: 20 mg Morphine Sulfate (Morphine) 1 mg IVP Q6 [facility] Last Admin: 03/27/18 11:03 Dose: 1 mg Nystatin (Nystatin Oral Susp) 5 ml PO QID [facility] Last Admin: 03/26/18 21:26 Dose: 5 ml Pantoprazole Sodium (Protonix Ec Tab) 40 mg PO ACB [facility] Last Admin: 03/27/18 06:29 Dose: 40 mg Polyethylene Glycol (Miralax) 17 gm PO BID [facility] Last Admin: 03/26/18 17:20 Dose: 17 gm Tamsulosin HCl (Flomax) 0.4 mg PO DAILY [facility] Last Admin: 03/26/18 10:42 Dose: 0.4 mg - Labs Labs: 03/27/18 06:40 03/27/18 06:40 PT 16.2 SECONDS (9.4-12.5) H 03/11/18 20:55 INR 1.41 03/11/18 20:55 APTT 28.5 Seconds (25.1-36.5) 03/11/18 20:55 - Constitutional Appears: Chronically Ill - Head Exam Head Exam: NORMAL INSPECTION - Respiratory Exam Respiratory Exam: Decreased Breath Sounds - Cardiovascular Exam Cardiovascular Exam: +S1, +S2 - GI/Abdominal Exam GI & Abdominal Exam: Soft. absent: Tenderness Assessment and Plan - Assessment and Plan (Free Text) Plan: Assessment S/P severe sepsis with acute renal failure and VDRF due to right sided HCAP stage 4 lung cancer with mets to bone and liver S/P port-a-cath placement HTN significant smoking history history of chronic alcohol use anxiety Plan continue to monitor off antibiotics since he is at risk for hospital-acquired infections - completed course of Doxycycline and Merrem repeat CXR from 03/26 is showing unchanged right sided pneumothorax
--- NOTE | 2018-03-28 16:42 | CP.PCM.PN ---
Subjective - Date & Time of Evaluation Date of Evaluation: 03/28/18 Time of Evaluation: 16:40 - Subjective Subjective: Case discussed with cardiothoracic surgeon Dr. Trinidad. Will discuss with patient consideration for VATS procedure. Objective - Vital Signs/Intake and Output Vital Signs (last 24 hours): Temp Pulse Resp BP Pulse Ox 97.4 F L 116 H 18 109/65 98 03/28/18 14:00 03/28/18 14:00 03/28/18 14:00 03/28/18 14:00 03/28/18 14:00 Intake and Output: 03/28/18 03/28/18 06:59 18:59 Intake Total 1200 Output Total 1 Balance 1199 - Medications Medications: Current Medications Acetylcysteine (Acetylcysteine 20%) 4 ml IH BIDRESP [facility] Last Admin: 03/28/18 07:08 Dose: 4 ml Benzonatate (Tessalon Perles) 100 mg PO TID [facility] Last Admin: 03/28/18 14:02 Dose: 100 mg Budesonide (Pulmicort Respules) 0.5 mg IH [id number] [facility] Last Admin: 03/28/18 07:08 Dose: 0.5 mg Docusate Sodium (Colace) 100 mg PO DAILY [facility] Last Admin: 03/28/18 14:02 Dose: 100 mg Enoxaparin Sodium (Lovenox) 40 mg SC DAILY [facility]; Protocol Last Admin: 03/28/18 11:02 Dose: 40 mg Fluoxetine HCl (Prozac) 10 mg PO DAILY [facility] Last Admin: 03/28/18 11:03 Dose: 10 mg Guaifenesin (Robitussin) 100 mg PO Q4H PRN PRN Reason: Cough Last Admin: 03/24/18 09:07 Dose: 100 mg Sodium Chloride (Sodium Chloride 0.9%) 1,000 mls @ 50 mls/hr IV .Q20H [facility] Last Admin: 03/28/18 05:43 Dose: 50 mls/hr Levalbuterol HCl (Xopenex) 0.63 mg IH TIDRESP [facility] Last Admin: 03/28/18 13:32 Dose: 0.63 mg Methylprednisolone (Solu-Medrol) 20 mg IVP DAILY [facility] Last Admin: 03/28/18 12:04 Dose: 20 mg Morphine Sulfate (Morphine) 1 mg IVP Q6 [facility] Last Admin: 03/28/18 10:33 Dose: 1 mg Nystatin (Nystatin Oral Susp) 5 ml PO QID [facility] Last Admin: 03/28/18 15:50 Dose: 5 ml Pantoprazole Sodium (Protonix Ec Tab) 40 mg PO ACB [facility] Last Admin: 03/28/18 05:43 Dose: 40 mg Polyethylene Glycol (Miralax) 17 gm PO BID [facility] Last Admin: 03/28/18 10:55 Dose: Not Given Tamsulosin HCl (Flomax) 0.4 mg PO DAILY [facility] Last Admin: 03/28/18 11:02 Dose: 0.4 mg - Labs Labs: 03/28/18 06:30 03/28/18 06:30 PT 16.2 SECONDS (9.4-12.5) H 03/11/18 20:55 INR 1.41 03/11/18 20:55 APTT 28.5 Seconds (25.1-36.5) 03/11/18 20:55
[2018-03-28] MEDS ORDERED: Morphine 2 mg/ml ISec IVP STA (20:27)
[2018-03-28] MEDS ORDERED: Oxycodone/Acetaminophen 5/325 mg Tab PO PRN (20:28)
--- NOTE | 2018-03-28 20:34 | CP.PCM.PCO ---
Physician Communication Note - Physician Communication Note Physician Communication Note: Spoke to family and pt regarding poss VATs on Mon in length.
[2018-03-29] MEDS: Morphine 2 mg/ml ISec IVP PRN ×3 (01:54→16:14)
[2018-03-29] MEDS: Acetylcysteine 20% Inhal Soln (4ml) IH SCH ×2 (07:01→21:40)
[2018-03-29] MEDS: Levalbuterol 0.63 MG/3 ML Inhal Soln UD IH SCH ×3 (07:01→21:40)
[2018-03-29] MEDS: Budesonide 0.5 mg/2 ml Inhal Susp UD IH SCH ×2 (07:01→21:40)
[2018-03-29 07:51] LABS: EOS % 0.2 % (1.5-5.0); GRAN # 9.47 (1.4-6.5); GRAN % 86.6 % (50.0-68.0); HEMOGLOBIN 8.8 g/dL (14.0-18.0); LYMPH # 0.7 (1.2-3.4); LYMPH % 6.2 % (22.0-35.0); MEAN CELL VOLUME 86.8 fl (80.0-105.0); MEAN CORPUSCULAR HEMOGLOBIN 27.6 pg (25.0-35.0); MEAN CORPUSCULAR HGB CONC 31.8 g/dl (31.0-37.0); MONO # 0.8 (0.1-0.6); RBC 3.19 10^6/uL (3.5-6.1); RED CELL DISTRIBUTION WIDTH 19.1 % (11.5-14.5); WHITE BLOOD COUNT 10.9 10^3/uL (4.5-11.0)
[2018-03-29 08:05] LABS: ALB/GLOB RATIO 0.9 (1.1-1.8); ALBUMIN 1.9 g/dL (3.0-4.8); ALT/SGPT 61 U/L (7-56); AST/SGOT 22 U/L (17-59); BLOOD UREA NITROGEN 17 mg/dL (7-21); CALCIUM 7.1 mg/dL (8.4-10.5); GFR NON-AFRICAN AMERICAN > 60
[2018-03-29] MEDS ORDERED: Potassium Chloride 20 mEq ER Tab PO ONE (08:07)
--- NOTE | 2018-03-29 08:23 | CP.PCM.PN ---
Subjective - Date & Time of Evaluation Date of Evaluation: 03/29/18 Time of Evaluation: 08:20 - Subjective Subjective: Thoracic surgery consult note- Dr. Trinidad Patient seen and examined at bedside. Remains on 3L NC saturating 94%. Denies fevers, chills, nausea, vomiting, diarrhea. Objective - Vital Signs/Intake and Output Vital Signs (last 24 hours): Temp Pulse Resp BP Pulse Ox 97.7 F 100 H 20 121/66 96 03/29/18 06:00 03/29/18 06:00 03/29/18 06:00 03/29/18 06:00 03/29/18 06:00 - Medications Medications: Current Medications Acetylcysteine (Acetylcysteine 20%) 4 ml IH BIDRESP [facility] Last Admin: 03/29/18 07:01 Dose: 4 ml Benzonatate (Tessalon Perles) 100 mg PO TID [facility] Last Admin: 03/28/18 18:23 Dose: 100 mg Budesonide (Pulmicort Respules) 0.5 mg IH [id number] [facility] Last Admin: 03/29/18 07:01 Dose: 0.5 mg Docusate Sodium (Colace) 100 mg PO DAILY [facility] Last Admin: 03/28/18 14:02 Dose: 100 mg Enoxaparin Sodium (Lovenox) 40 mg SC DAILY [facility]; Protocol Last Admin: 03/28/18 11:02 Dose: 40 mg Fluoxetine HCl (Prozac) 10 mg PO DAILY [facility] Last Admin: 03/28/18 11:03 Dose: 10 mg Guaifenesin (Robitussin) 100 mg PO Q4H PRN PRN Reason: Cough Last Admin: 03/24/18 09:07 Dose: 100 mg Sodium Chloride (Sodium Chloride 0.9%) 1,000 mls @ 50 mls/hr IV .Q20H [facility] Last Admin: 03/28/18 21:15 Dose: 50 mls/hr Levalbuterol HCl (Xopenex) 0.63 mg IH TIDRESP [facility] Last Admin: 03/29/18 07:01 Dose: 0.63 mg Methylprednisolone (Solu-Medrol) 20 mg IVP DAILY [facility] Last Admin: 03/28/18 12:04 Dose: 20 mg Morphine Sulfate (Morphine) 2 mg IVP Q6H PRN PRN Reason: Pain, severe (8-10) Last Admin: 03/29/18 01:54 Dose: 2 mg Nystatin (Nystatin Oral Susp) 5 ml PO QID [facility] Last Admin: 03/28/18 21:58 Dose: 5 ml Oxycodone/Acetaminophen (Percocet 5/325 Mg Tab) 1 tab PO Q6H PRN PRN Reason: Pain, moderate (4-7) Stop: 03/31/18 20:29 Pantoprazole Sodium (Protonix Ec Tab) 40 mg PO ACB [facility] Last Admin: 03/28/18 05:43 Dose: 40 mg Polyethylene Glycol (Miralax) 17 gm PO BID [facility] Last Admin: 03/28/18 18:24 Dose: Not Given Tamsulosin HCl (Flomax) 0.4 mg PO DAILY [facility] Last Admin: 03/28/18 11:02 Dose: 0.4 mg - Labs Labs: 03/29/18 07:00 03/29/18 07:00 PT 16.2 SECONDS (9.4-12.5) H 03/11/18 20:55 INR 1.41 03/11/18 20:55 APTT 28.5 Seconds (25.1-36.5) 03/11/18 20:55 - Constitutional Appears: Non-toxic, No Acute Distress, Chronically Ill - Head Exam Head Exam: ATRAUMATIC - Eye Exam Eye Exam: EOMI. absent: Scleral icterus - Respiratory Exam Respiratory Exam: Decreased Breath Sounds, NORMAL BREATHING PATTERN. absent: Accessory Muscle Use, Respiratory Distress Additional comments: Absent breath sounds on right - Cardiovascular Exam Cardiovascular Exam: REGULAR RHYTHM. absent: Bradycardia, Tachycardia - GI/Abdominal Exam GI & Abdominal Exam: Soft. absent: Firm, Guarding, Rigid, Tenderness - Extremities Exam Extremities Exam: absent: Calf Tenderness - Neurological Exam Neurological Exam: Alert, Awake, Oriented x3 - Psychiatric Exam Psychiatric exam: Normal Affect - Skin Skin Exam: Intact, Warm Assessment and Plan - Assessment and Plan (Free Text) Assessment: 67M with Stage 4 NSCLC presents with right sided multi-loculated hydro- pneumothorax. Plan: -Right sided hydropneumothorax with complete collapse of the lung -will consider VATS; pending if patient is agreeable -further recs per Dr. Vivi Alvarez PGY2
[2018-03-29] MEDS: Enoxaparin 40 mg Syringe SC SCH (09:44)
[2018-03-29] MEDS: Pantoprazole 40 mg EC Tab PO SCH ×2 (09:47)
[2018-03-29] MEDS: Nystatin 100,000 Units/ml Oral Susp 5 ml UD PO SCH ×4 (09:52→21:48)
[2018-03-29] MEDS: POLYETHYLENE GLYCOL 3350 17 GM/Dose PACKET PO SCH ×2 (09:52→18:36)
[2018-03-29] MEDS: MethylPREDNISolone 40 mg Vial IVP SCH (09:53)
--- NOTE | 2018-03-29 11:23 | CP.PCM.PN ---
Subjective - Date & Time of Evaluation Date of Evaluation: 03/29/18 Time of Evaluation: 09:15 - Subjective Subjective: Appetite is better, still having weakness, no fevers. Objective - Vital Signs/Intake and Output Vital Signs (last 24 hours): Temp Pulse Resp BP Pulse Ox 97.4 F L 116 H 18 109/65 98 03/28/18 14:00 03/28/18 14:00 03/28/18 14:00 03/28/18 14:00 03/28/18 14:00 Intake and Output: 03/28/18 03/28/18 06:59 18:59 Intake Total 1200 Output Total 1 Balance 1199 - Medications Medications: Current Medications Acetylcysteine (Acetylcysteine 20%) 4 ml IH BIDRESP [facility] Last Admin: 03/28/18 07:08 Dose: 4 ml Benzonatate (Tessalon Perles) 100 mg PO TID [facility] Last Admin: 03/28/18 14:02 Dose: 100 mg Budesonide (Pulmicort Respules) 0.5 mg IH [id number] [facility] Last Admin: 03/28/18 07:08 Dose: 0.5 mg Docusate Sodium (Colace) 100 mg PO DAILY [facility] Last Admin: 03/28/18 14:02 Dose: 100 mg Enoxaparin Sodium (Lovenox) 40 mg SC DAILY [facility]; Protocol Last Admin: 03/28/18 11:02 Dose: 40 mg Fluoxetine HCl (Prozac) 10 mg PO DAILY [facility] Last Admin: 03/28/18 11:03 Dose: 10 mg Guaifenesin (Robitussin) 100 mg PO Q4H PRN PRN Reason: Cough Last Admin: 03/24/18 09:07 Dose: 100 mg Sodium Chloride (Sodium Chloride 0.9%) 1,000 mls @ 50 mls/hr IV .Q20H [facility] Last Admin: 03/28/18 05:43 Dose: 50 mls/hr Levalbuterol HCl (Xopenex) 0.63 mg IH TIDRESP [facility] Last Admin: 03/28/18 13:32 Dose: 0.63 mg Methylprednisolone (Solu-Medrol) 20 mg IVP DAILY [facility] Last Admin: 03/28/18 12:04 Dose: 20 mg Morphine Sulfate (Morphine) 1 mg IVP Q6 [facility] Last Admin: 03/28/18 10:33 Dose: 1 mg Nystatin (Nystatin Oral Susp) 5 ml PO QID [facility] Last Admin: 03/28/18 15:50 Dose: 5 ml Pantoprazole Sodium (Protonix Ec Tab) 40 mg PO ACB [facility] Last Admin: 03/28/18 05:43 Dose: 40 mg Polyethylene Glycol (Miralax) 17 gm PO BID [facility] Last Admin: 03/28/18 10:55 Dose: Not Given Tamsulosin HCl (Flomax) 0.4 mg PO DAILY [facility] Last Admin: 03/28/18 11:02 Dose: 0.4 mg - Labs Labs: 03/28/18 06:30 03/28/18 06:30 PT 16.2 SECONDS (9.4-12.5) H 03/11/18 20:55 INR 1.41 03/11/18 20:55 APTT 28.5 Seconds (25.1-36.5) 03/11/18 20:55 - Constitutional Appears: Chronically Ill - Head Exam Head Exam: NORMAL INSPECTION - Respiratory Exam Respiratory Exam: Decreased Breath Sounds - Cardiovascular Exam Cardiovascular Exam: +S1, +S2 - GI/Abdominal Exam GI & Abdominal Exam: Soft. absent: Tenderness Assessment and Plan - Assessment and Plan (Free Text) Plan: Assessment S/P severe sepsis with acute renal failure and VDRF due to right sided HCAP stage 4 lung cancer with mets to bone and liver S/P port-a-cath placement HTN significant smoking history history of chronic alcohol use anxiety Plan continue to monitor off antibiotics since he is at risk for healthcare-associ ated infections - completed course of Doxycycline and Merrem repeat CXR from 03/26 is showing unchanged right sided pneumothorax
--- NOTE | 2018-03-29 11:56 | CP.PCM.PN ---
<Heber López - Last Filed: 03/29/18 11:53> Subjective - Date & Time of Evaluation Date of Evaluation: 03/29/18 Time of Evaluation: 09:10 - Subjective Subjective: Heber López PGY-1 Progress Note for Hospitalist Service Patient seen and evaluated at bedside. No acute events reported overnight. Patient complains of some ear pain but states that he is tolerating his diet and has no associated n/v. He also denies shortness of breath, palpitations, fevers, chills, headache, chest pain, cough, abd pain, nausea, vomiting, or dysuria. Objective - Vital Signs/Intake and Output Vital Signs (last 24 hours): Temp Pulse Resp BP Pulse Ox 97.7 F 100 H 20 121/66 96 03/29/18 06:00 03/29/18 06:00 03/29/18 06:00 03/29/18 06:00 03/29/18 06:00 - Medications Medications: Current Medications Acetylcysteine (Acetylcysteine 20%) 4 ml IH BIDRESP [facility] Last Admin: 03/29/18 07:01 Dose: 4 ml Benzonatate (Tessalon Perles) 100 mg PO TID [facility] Last Admin: 03/29/18 09:47 Dose: 100 mg Budesonide (Pulmicort Respules) 0.5 mg IH [id number] [facility] Last Admin: 03/29/18 07:01 Dose: 0.5 mg Carbamide Peroxide (Debrox Ear Drops) 0 ml AU BID DAVID Docusate Sodium (Colace) 100 mg PO DAILY [facility] Last Admin: 03/29/18 09:47 Dose: 100 mg Enoxaparin Sodium (Lovenox) 40 mg SC DAILY [facility]; Protocol Last Admin: 03/29/18 09:44 Dose: 40 mg Fluoxetine HCl (Prozac) 10 mg PO DAILY [facility] Last Admin: 03/29/18 09:47 Dose: 10 mg Guaifenesin (Robitussin) 100 mg PO Q4H PRN PRN Reason: Cough Last Admin: 03/24/18 09:07 Dose: 100 mg Sodium Chloride (Sodium Chloride 0.9%) 1,000 mls @ 50 mls/hr IV .Q20H [facility] Last Admin: 03/28/18 21:15 Dose: 50 mls/hr Levalbuterol HCl (Xopenex) 0.63 mg IH TIDRESP [facility] Last Admin: 03/29/18 07:01 Dose: 0.63 mg Methylprednisolone (Solu-Medrol) 20 mg IVP DAILY [facility] Last Admin: 03/29/18 09:53 Dose: 20 mg Morphine Sulfate (Morphine) 2 mg IVP Q6H PRN PRN Reason: Pain, severe (8-10) Last Admin: 03/29/18 09:44 Dose: 2 mg Nystatin (Nystatin Oral Susp) 5 ml PO QID [facility] Last Admin: 03/29/18 09:52 Dose: 5 ml Oxycodone/Acetaminophen (Percocet 5/325 Mg Tab) 1 tab PO Q6H PRN PRN Reason: Pain, moderate (4-7) Stop: 03/31/18 20:29 Pantoprazole Sodium (Protonix Ec Tab) 40 mg PO ACB [facility] Last Admin: 03/29/18 09:47 Dose: 40 mg Polyethylene Glycol (Miralax) 17 gm PO BID [facility] Last Admin: 03/29/18 09:52 Dose: 17 gm Tamsulosin HCl (Flomax) 0.4 mg PO DAILY [facility] Last Admin: 03/29/18 09:51 Dose: 0.4 mg - Labs Labs: 03/29/18 07:00 03/29/18 07:00 PT 16.2 SECONDS (9.4-12.5) H 03/11/18 20:55 INR 1.41 03/11/18 20:55 APTT 28.5 Seconds (25.1-36.5) 03/11/18 20:55 - Additional Findings Additional findings: - Constitutional Appears: Non-toxic, No Acute Distress, Cachectic, Chronically Ill - Head Exam Head Exam: ATRAUMATIC, NORMAL INSPECTION, NORMOCEPHALIC - Eye Exam Eye Exam: EOMI, Normal appearance, PERRL Ear Exam excess cerumen noted in bilateral ear canals. - Respiratory Exam Respiratory Exam: Decreased Breath Sounds (Worse R than L), NORMAL BREATHING PATTERN. absent: Accessory Muscle Use, Rales, Rhonchi, Wheezes, Respiratory Distress, Stridor - Cardiovascular Exam Cardiovascular Exam: RRR, +S1, +S2. absent: Gallop, Rubs - GI/Abdominal Exam GI & Abdominal Exam: Soft, Normal Bowel Sounds. absent: Firm, Guarding, Rigid, Tenderness - Extremities Exam Extremities Exam: Normal Inspection - Back Exam Back Exam: NORMAL INSPECTION. 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 Pt was admitted to ICU for management and treatment of hypoxemic respiratory failure. Pt has recurrent pleural effusion, likely malignant. Chest tube was pulled and had some reaccumulation noted on CXR. Pt had CT chest which showed large hydropneumothorax. CT surgery planning for VATS procedure on Saturday. Plan: Right pleural effusion - Recurred - CT Chest 03/19 shows decrease in right pleural effusion, multi-loculated hydropneumothorax, improved aeration of the right lung, multiple liver masses - Chest tube was pulled - Kattyuer-x cath was unable to be placed due to small amount of fluid - Chest CT 03/28 showed large hydropneumothorax - Blood culture negative - completed doxy, merrem course - no further ID recs - WBC wnl today, afebrile - Pain control with Percocet 5-325 mg q6 - Solumedrol 20 qd, pulmicort, mucomyst, xopenex, tessalon perles - Echo shows EF 53%, RVSP 61 - Trops are indeterminate - IR, pulm, cardio consult - F/U Home O2 eval - Thoracic surgery consult, VATS planned for Saturday Elevated BUN - Improving - Likely dehydration, continues to improve - Pt has poor appetite, counseling given on increased food/fluid intake - Continue NS to 50cc/hr Urinary retention - Refusing straight cath and borja - Continue flomax Hx of stage 4 non small cell lung cancer - Mets to the liver, lungs, bone - Currently on immunotherapy - Candidate for laser ablation of the right main stem with stent and tumor debulking - Pt/family to make decision in regards to degree of aggressive treatment - Heme/onc on consult - recs appreciated - Psych on consult for depression - patient refused Mild hypokalemia - Repleted - f/u in AM Bilateral Cerumen - Debrox ordered - continue to monitor Tachycardia-resolved - Continue home toprol XL 100mg Conjunctivitis - Resolved - Topical ciprofloxacin - completed PPX/Diet - Lovenox, protonix - HHD Patient seen, case reviewed and plan approved by Dr. Novak. Heber López, PGY-1 <Flor Novak - Last Filed: 03/29/18 13:38> Objective - Vital Signs/Intake and Output Vital Signs (last 24 hours): Temp Pulse Resp BP Pulse Ox 97.7 F 100 H 20 121/66 96 03/29/18 06:00 03/29/18 06:00 03/29/18 06:00 03/29/18 06:00 03/29/18 06:00 - Medications Medications: Current Medications Acetylcysteine (Acetylcysteine 20%) 4 ml IH BIDRESP [facility] Last Admin: 03/29/18 07:01 Dose: 4 ml Benzonatate (Tessalon Perles) 100 mg PO TID [facility] Last Admin: 03/29/18 09:47 Dose: 100 mg Budesonide (Pulmicort Respules) 0.5 mg IH [id number] [facility] Last Admin: 03/29/18 07:01 Dose: 0.5 mg Carbamide Peroxide (Debrox Ear Drops) 0 ml AU BID DAVID Docusate Sodium (Colace) 100 mg PO DAILY [facility] Last Admin: 03/29/18 09:47 Dose: 100 mg Enoxaparin Sodium (Lovenox) 40 mg SC DAILY [facility]; Protocol Last Admin: 03/29/18 09:44 Dose: 40 mg Fluoxetine HCl (Prozac) 10 mg PO DAILY [facility] Last Admin: 03/29/18 09:47 Dose: 10 mg Guaifenesin (Robitussin) 100 mg PO Q4H PRN PRN Reason: Cough Last Admin: 03/24/18 09:07 Dose: 100 mg Sodium Chloride (Sodium Chloride 0.9%) 1,000 mls @ 50 mls/hr IV .Q20H [facility] Last Admin: 03/28/18 21:15 Dose: 50 mls/hr Levalbuterol HCl (Xopenex) 0.63 mg IH TIDRESP [facility] Last Admin: 03/29/18 13:09 Dose: 0.63 mg Methylprednisolone (Solu-Medrol) 20 mg IVP DAILY [facility] Last Admin: 03/29/18 09:53 Dose: 20 mg Morphine Sulfate (Morphine) 2 mg IVP Q6H PRN PRN Reason: Pain, severe (8-10) Last Admin: 03/29/18 09:44 Dose: 2 mg Nystatin (Nystatin Oral Susp) 5 ml PO QID [facility] Last Admin: 03/29/18 09:52 Dose: 5 ml Oxycodone/Acetaminophen (Percocet 5/325 Mg Tab) 1 tab PO Q6H PRN PRN Reason: Pain, moderate (4-7) Stop: 03/31/18 20:29 Pantoprazole Sodium (Protonix Ec Tab) 40 mg PO ACB [facility] Last Admin: 03/29/18 09:47 Dose: 40 mg Polyethylene Glycol (Miralax) 17 gm PO BID [facility] Last Admin: 03/29/18 09:52 Dose: 17 gm Tamsulosin HCl (Flomax) 0.4 mg PO DAILY [facility] Last Admin: 03/29/18 09:51 Dose: 0.4 mg - Labs Labs: 03/29/18 07:00 03/29/18 07:00 PT 16.2 SECONDS (9.4-12.5) H 03/11/18 20:55 INR 1.41 03/11/18 20:55 APTT 28.5 Seconds (25.1-36.5) 03/11/18 20:55 Attending/Attestation - Attestation I have personally seen and examined this patient.: Yes I have fully participated in the care of the patient.: Yes I have reviewed all pertinent clinical information, including history, physical exam and plan: Yes Notes (Text): 03/29/18 13:33 67 year old male with past medical history of adenocarcinoma of the lungs, hypertension and anxiety who presented with complaint of shortness of breath. He was found to have right sided recurrent pleural effusion and possible pneumonia. Patient is s/p antibiotics therapy. He had thoracocentesis (03/13/18). He has chest tube removed earlier this week. Pleurex catheter was not able to be done due to inadequate amount of fluid as per IR. CT chest showed large hydropneumothorax. CT surgery is following and plan for possible VATS on Saturday. Heme/onc and pulmonary are also following. PT is following and recommended [facility]. However patient wishes to go home with home services. Patient is full code. Overall prognosis is guarded. Daughter is at bedside and questions were answered. Flor Novak MD Hospitalist.
--- NOTE | 2018-03-29 14:44 | RAD ---
Date of service: 03/29/2018 HISTORY: chest tube, hx lung cancer COMPARISON: 03/28/2018 FINDINGS: LUNGS: Large right hydro pneumothorax. Likely complete atelectasis of right lung as demonstrated on CT examination of 03/28/2018. No evidence of left pleural effusion or pneumothorax. No significant change from prior examination. PLEURA: As above CARDIOVASCULAR: No aortic atherosclerotic calcification present. Normal cardiac size. No congestive change. Left central venous infusion port. OSSEOUS STRUCTURES: No significant abnormalities. VISUALIZED UPPER ABDOMEN: Normal. OTHER FINDINGS: None. IMPRESSION: Large right hydro pneumothorax with probable complete atelectasis of right lung. No significant interval change
[2018-03-29] MEDS: Sodium Chloride 0.9% 1,000 ML IV SCH (16:02)
--- NOTE | 2018-03-29 23:16 | PN ---
DATE: 03/29/2018 This is [facility] visit on the medical floor. For Dr. Vaughn. SUBJECTIVE: The patient is a 67-year-old male, seen sitting up in bed with family at the bedside, now hospitalized for 18 days with the patient known to have significant pneumothorax with recommendations now for VATS procedure in the near future as per Dr. Read with consult now for thoracic surgeon intervention Dr. Trinidad for VATS procedure. The patient is known to suffer from stage IV metastatic non-small cell CA of the lung with Porex catheter unable to be placed. PHYSICAL EXAMINATION: VITAL SIGNS: Temperature 97.9, pulse 104, respirations 18, blood pressure 114/69, and pulse ox 94%. HEENT: Unremarkable. NECK: Supple. HEART: Regular rate. LUNGS: Decreased breath sounds on the right. Scattered rhonchi. ABDOMEN: Soft. EXTREMITIES: Faint +1 edema on his hands and feet. NEUROLOGIC: Awake and alert. LABORATORY DATA: The patient's labs were done. White blood cell count of 10.9, hemoglobin 8.8, hematocrit 27.7, platelet count of 106,000. Metabolic panel showing a potassium of 3.5. It is an otherwise normal metabolic panel. The patient did have a chest x-ray done earlier today. It was read as large right hydropneumothorax with probable complete atelectasis of the right lung. ASSESSMENT: For this patient is that of metastatic stage IV non-small cell carcinoma of the lung, status post pleural effusion with thoracentesis with hydropneumothorax on the right, hypertension, history of ethyl alcohol abuse, anxiety, gastroesophageal reflux disease and chronic obstructive pulmonary disease, anemia of chronic disease with the patient now with the hemoglobin of 8.8, hypokalemia. PLAN: For this patient is to continue his present medical regimen with VATS procedure as per Dr. Trinidad with the patient's condition guarded. This is complex patient with comprehensive medically necessary and appropriate visit carried out in excess of 20 minutes with the patient's questions answered to his satisfaction. The patient does have compromised hearing for which Ear, Nose and Throat consult was done with Debrox given. However, upon review of the patient's records, we were asked for a Ear, Nose and Throat consult with Dr. Aguila and Dr. Teague, Ear, Nose and Throat consultants. Rocky Jacobs MD
--- NOTE | 2018-03-30 00:15 | PN ---
DATE: 03/29/2018 PULMONARY PROGRESS NOTE REFERRING PHYSICIAN: Dr. Novak. SUBJECTIVE: He is lying in the bed. Family is at bedside. Night was unremarkable. Has a cough and shortness of breath. No chest pain. No nausea or vomiting. No diarrhea, leg pain, or leg swelling. OBJECTIVE: GENERAL: No acute distress. VITAL SIGNS: Temperature is 98, heart rate is 104, respiratory rate is 18, blood pressure 114/69, pulse ox 94% on 2 L nasal cannula. HEENT: Moist mucous membranes. Crowded airway. NECK: Supple. No JVD. LUNGS: Reveal no breath sounds on the right lung. Scattered rhonchi on the left lung. HEART: S1 and S2. ABDOMEN: Soft, nontender. No organomegaly. EXTREMITIES: There is not much edema. NEUROLOGICAL: Awake, alert. Follows simple commands. MEDICATIONS: He is on Mucomyst inhaled twice a day, Colace 100 mg daily. He is on Debrox ear drops twice a day, Flomax 0.4 mg daily, Lovenox 40 mg subcutaneous daily, MiraLAX 17 g twice a day, morphine 2 mg every 6 hours p.r.n., nystatin oral suspension 5 mL 4 times daily, Percocet 5/325 one tab every 6 hours p.r.n., Protonix 40 mg a.c.b., Prozac 10 mg daily, Pulmicort inhaled twice a day, Robitussin 100 mg every 4 hours, IV fluid normal saline 50 mL/hour, Solu-Medrol is 20 mg IV daily, Tessalon Perles every 8 hours, Xopenex inhaled every 8 hours. LABORATORY DATA: Shows hemoglobin 8.8, hematocrit 27.7, WBC 10.9, platelet count is 106. Sodium 137, potassium 3.5, chloride 109, bicarbonate 28, BUN 17, creatinine 0.7, glucose 85, calcium is 7.1. AST 22, ALT 61, alk phos is 104, albumin is 1.9. Microbiology, blood culture, urine culture, nares cultures are unremarkable. Chest x-ray done today shows large right hydropneumothorax with probably complete atelectasis of the right lung. IMPRESSION AND PLAN: Metastatic stage IV non-small cell lung cancer with malignant effusion, status post chest tube placement, which has been removed; presently has a large right-sided hydropneumothorax. Case discussed with the patient and daughter at bedside. All their questions answered. Thoracic Surgery notes reviewed. The patient is . According to the patient, he is leaning to get the procedure done, understanding risk/benefit ratio. Pulmonary point of view, continue bronchodilator, keep head at 45 degrees chronic lung disease, gastric prophylaxis. Sequential compression device to lower extremities. Overall poor prognosis. Case discussed with Oncology Services. Fred Read MD
[2018-03-30] MEDS: Morphine 2 mg/ml ISec IVP PRN ×2 (02:38→10:02)
[2018-03-30 07:49] LABS: EOS # 0.1 (0.0-0.7); EOS % 0.4 % (1.5-5.0); GRAN # 9.91 (1.4-6.5); GRAN % 85.8 % (50.0-68.0); HEMOGLOBIN 9.4 g/dL (14.0-18.0); LYMPH # 0.8 (1.2-3.4); LYMPH % 6.8 % (22.0-35.0); MEAN CELL VOLUME 86.7 fl (80.0-105.0); MEAN CORPUSCULAR HEMOGLOBIN 27.2 pg (25.0-35.0); MEAN CORPUSCULAR HGB CONC 31.4 g/dl (31.0-37.0); MEAN PLATELET VOLUME 10.6 fl (7.0-11.0); MONO # 0.8 (0.1-0.6); RBC 3.45 10^6/uL (3.5-6.1); RED CELL DISTRIBUTION WIDTH 19.7 % (11.5-14.5); WHITE BLOOD COUNT 11.6 10^3/uL (4.5-11.0)
[2018-03-30 08:02] LABS: ALB/GLOB RATIO 0.9 (1.1-1.8); ALBUMIN 2.1 g/dL (3.0-4.8); ALT/SGPT 56 U/L (7-56); AST/SGOT 21 U/L (17-59); BLOOD UREA NITROGEN 14 mg/dL (7-21); CALCIUM 7.2 mg/dL (8.4-10.5); GFR NON-AFRICAN AMERICAN > 60
[2018-03-30 08:20] LABS: INR 1.35; PROTHROMBIN TIME 15.6 SECONDS (9.4-12.5)
[2018-03-30] MEDS: Budesonide 0.5 mg/2 ml Inhal Susp UD IH SCH ×2 (08:53→21:30)
[2018-03-30] MEDS: Levalbuterol 0.63 MG/3 ML Inhal Soln UD IH SCH ×3 (08:53→21:30)
[2018-03-30] MEDS: Acetylcysteine 20% Inhal Soln (4ml) IH SCH ×2 (08:53→21:30)
--- NOTE | 2018-03-30 09:53 | CP.PCM.PN ---
Subjective - Date & Time of Evaluation Date of Evaluation: 03/30/18 Time of Evaluation: 09:50 - Subjective Subjective: Surgery: Dr. Fan Pt seen and examined. Has panic attack/SOB overnight. Currently improved. Objective - Vital Signs/Intake and Output Vital Signs (last 24 hours): Temp Pulse Resp BP Pulse Ox 97.4 F L 95 H 18 115/69 97 03/30/18 06:00 03/30/18 06:00 03/30/18 06:00 03/30/18 06:00 03/30/18 06:00 - Medications Medications: Current Medications Acetylcysteine (Acetylcysteine 20%) 4 ml IH BIDRESP [facility] Last Admin: 03/30/18 08:53 Dose: 4 ml Benzonatate (Tessalon Perles) 100 mg PO TID [facility] Last Admin: 03/29/18 14:15 Dose: 100 mg Budesonide (Pulmicort Respules) 0.5 mg IH [id number] [facility] Last Admin: 03/30/18 08:53 Dose: 0.5 mg Carbamide Peroxide (Debrox Ear Drops) 0 ml AU BID [facility] Last Admin: 03/29/18 17:59 Dose: 1 drop Docusate Sodium (Colace) 100 mg PO DAILY [facility] Last Admin: 03/29/18 09:47 Dose: 100 mg Enoxaparin Sodium (Lovenox) 40 mg SC DAILY [facility]; Protocol Last Admin: 03/29/18 09:44 Dose: 40 mg Fluoxetine HCl (Prozac) 10 mg PO DAILY [facility] Last Admin: 03/29/18 09:47 Dose: 10 mg Guaifenesin (Robitussin) 100 mg PO Q4H PRN PRN Reason: Cough Last Admin: 03/24/18 09:07 Dose: 100 mg Sodium Chloride (Sodium Chloride 0.9%) 1,000 mls @ 50 mls/hr IV .Q20H [facility] Last Admin: 03/29/18 16:02 Dose: 50 mls/hr Levalbuterol HCl (Xopenex) 0.63 mg IH TIDRESP [facility] Last Admin: 03/30/18 08:53 Dose: 0.63 mg Lorazepam (Ativan) 1 mg PO TID PRN; Protocol PRN Reason: Anxiety Methylprednisolone (Solu-Medrol) 20 mg IVP DAILY [facility] Last Admin: 03/29/18 09:53 Dose: 20 mg Morphine Sulfate (Morphine) 2 mg IVP Q6H PRN PRN Reason: Pain, severe (8-10) Last Admin: 03/30/18 02:38 Dose: 2 mg Nystatin (Nystatin Oral Susp) 5 ml PO QID [facility] Last Admin: 03/29/18 21:48 Dose: 5 ml Oxycodone/Acetaminophen (Percocet 5/325 Mg Tab) 1 tab PO Q6H PRN PRN Reason: Pain, moderate (4-7) Stop: 03/31/18 20:29 Last Admin: 03/29/18 14:15 Dose: 1 tab Pantoprazole Sodium (Protonix Ec Tab) 40 mg PO ACB [facility] Last Admin: 03/29/18 09:47 Dose: 40 mg Polyethylene Glycol (Miralax) 17 gm PO BID [facility] Last Admin: 03/29/18 18:36 Dose: Not Given Tamsulosin HCl (Flomax) 0.4 mg PO DAILY [facility] Last Admin: 03/29/18 09:51 Dose: 0.4 mg - Labs Labs: 03/30/18 07:20 03/30/18 07:20 PT 15.6 SECONDS (9.4-12.5) H 03/30/18 07:20 INR 1.35 03/30/18 07:20 APTT 31.0 Seconds (25.1-36.5) 03/30/18 07:20 - Constitutional Appears: Non-toxic, No Acute Distress - Head Exam Head Exam: ATRAUMATIC, NORMOCEPHALIC - Eye Exam Eye Exam: EOMI - ENT Exam ENT Exam: Mucous Membranes Moist - Neck Exam Neck Exam: Full ROM - Respiratory Exam Respiratory Exam: NORMAL BREATHING PATTERN. absent: Accessory Muscle Use, Respiratory Distress - GI/Abdominal Exam GI & Abdominal Exam: Soft. absent: Tenderness - Extremities Exam Extremities Exam: absent: Calf Tenderness, Pedal Edema - Neurological Exam Neurological Exam: Alert, Awake, Oriented x3 Assessment and Plan - Assessment and Plan (Free Text) Assessment: 67M w. stage IV lung CA w. R hydropneumothorax -AM CXR: R effusion slightly increased -Will plan for VATs on Saturday w. talc pleurodesis and pleurex catheter nisha cement -d/w attending Oliva PGY4
[2018-03-30] MEDS: Enoxaparin 40 mg Syringe SC SCH (10:03)
[2018-03-30] MEDS: guaiFENesin 100 mg/5 ml Syrup UD PO PRN ×2 (10:04→18:32)
[2018-03-30] MEDS: MethylPREDNISolone 40 mg Vial IVP SCH (10:05)
[2018-03-30] MEDS ORDERED: oxyCODONE 5 mg Immediate Release Tab PO PRN (12:09)
--- NOTE | 2018-03-30 12:12 | CP.PCM.PN ---
<Colby Regalado - Last Filed: 03/30/18 12:08> Subjective - Date & Time of Evaluation Date of Evaluation: 03/30/18 Time of Evaluation: 08:00 - Subjective Subjective: Colby Regalado PGY1 Medicine Progress Note for Dr. Novak Patient was seen and examined at bedside this morning. Patient's ear pain has improved but it is still present. No adverse overnight events. Tolerating diet. No cp, sob, palpitations, fever, chills, headache, n/v/d. A full 12 point ROS was conducted and unremarkable except as stated above. Objective - Vital Signs/Intake and Output Vital Signs (last 24 hours): Temp Pulse Resp BP Pulse Ox 97.4 F L 95 H 18 115/69 97 03/30/18 06:00 03/30/18 06:00 03/30/18 06:00 03/30/18 06:00 03/30/18 06:00 - Medications Medications: Current Medications Acetylcysteine (Acetylcysteine 20%) 4 ml IH BIDRESP [facility] Last Admin: 03/30/18 08:53 Dose: 4 ml Benzonatate (Tessalon Perles) 100 mg PO TID [facility] Last Admin: 03/30/18 10:05 Dose: 100 mg Budesonide (Pulmicort Respules) 0.5 mg IH [id number] [facility] Last Admin: 03/30/18 08:53 Dose: 0.5 mg Carbamide Peroxide (Debrox Ear Drops) 0 ml AU BID [facility] Last Admin: 03/29/18 17:59 Dose: 1 drop Docusate Sodium (Colace) 100 mg PO DAILY [facility] Last Admin: 03/30/18 10:04 Dose: 100 mg Enoxaparin Sodium (Lovenox) 40 mg SC DAILY [facility]; Protocol Last Admin: 03/30/18 10:03 Dose: 40 mg Fluoxetine HCl (Prozac) 10 mg PO DAILY [facility] Last Admin: 03/30/18 10:06 Dose: 10 mg Guaifenesin (Robitussin) 100 mg PO Q4H PRN PRN Reason: Cough Last Admin: 03/30/18 10:04 Dose: 100 mg Sodium Chloride (Sodium Chloride 0.9%) 1,000 mls @ 50 mls/hr IV .Q20H [facility] Last Admin: 03/29/18 16:02 Dose: 50 mls/hr Levalbuterol HCl (Xopenex) 0.63 mg IH TIDRESP [facility] Last Admin: 03/30/18 08:53 Dose: 0.63 mg Lorazepam (Ativan) 0.5 mg PO TID PRN; Protocol PRN Reason: Anxiety Methylprednisolone (Solu-Medrol) 20 mg IVP DAILY [facility] Last Admin: 03/30/18 10:05 Dose: 20 mg Morphine Sulfate (Morphine) 3 mg IVP Q4H PRN PRN Reason: Pain, severe (8-10) Nystatin (Nystatin Oral Susp) 5 ml PO QID [facility] Last Admin: 03/29/18 21:48 Dose: 5 ml Oxycodone/Acetaminophen (Percocet 5/325 Mg Tab) 1 tab PO Q6H PRN PRN Reason: Pain, moderate (4-7) Stop: 03/31/18 20:29 Last Admin: 03/29/18 14:15 Dose: 1 tab Pantoprazole Sodium (Protonix Ec Tab) 40 mg PO ACB [facility] Last Admin: 03/29/18 09:47 Dose: 40 mg Polyethylene Glycol (Miralax) 17 gm PO BID [facility] Last Admin: 03/29/18 18:36 Dose: Not Given Tamsulosin HCl (Flomax) 0.4 mg PO DAILY [facility] Last Admin: 03/29/18 09:51 Dose: 0.4 mg - Labs Labs: 03/30/18 07:20 03/30/18 07:20 PT 15.6 SECONDS (9.4-12.5) H 03/30/18 07:20 INR 1.35 03/30/18 07:20 APTT 31.0 Seconds (25.1-36.5) 03/30/18 07:20 - Constitutional Appears: No Acute Distress - Head Exam Head Exam: ATRAUMATIC, NORMAL INSPECTION, NORMOCEPHALIC - Eye Exam Eye Exam: EOMI, Normal appearance - ENT Exam Additional comments: cerumen is noted in bilateral ear canals. - Respiratory Exam Respiratory Exam: Clear to Ausculation Bilateral, NORMAL BREATHING PATTERN. absent: Rales, Rhonchi, Wheezes - Cardiovascular Exam Cardiovascular Exam: RRR, +S1, +S2 - GI/Abdominal Exam GI & Abdominal Exam: Soft, Normal Bowel Sounds. absent: Tenderness - Extremities Exam Extremities Exam: Full ROM, Normal Capillary Refill, Normal Inspection. 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 He was admitted to ICU for management and treatment of hypoxemic respiratory failure. Pt has recurrent pleural effusion, likely malignant. Chest tube was pulled and had some reaccumulation noted on CXR. Pt had CT chest which showed large hyd ropneumothorax. CT surgery planning for VATS procedure on Saturday. Plan: Right Sided Pleural Effusion with Recurrence - CXR (03/30): unchanged from previous; large R-hydropneumothorax and pleural effusion - Chest tube was pulled out previously. Pluer-x cath was unable to be placed due to small amount of fluid. Plan is for VATS on Saturday, 04/01, as per CT surg - c/w pain control with percocet and morphine prn - d/c steroids - c/w pulmicort, mucomyst, xopenex, tessalon perles as per pulm recs - Blood culture negative x2, MRSA negative, UCx negative - completed antibiotics doxy, merrem course - no further ID recs - Afebrile and no leukocytosis - Echo shows EF 53%, RVSP 61 - IR, pulm, cardio, CT surg consult Hx of stage 4 non small cell lung cancer with mets to liver, lungs, bone - Currently on immunotherapy - Candidate for laser ablation of the right main stem with stent and tumor debulking - Pt/family to make decision in regards to degree of aggressive treatment - Heme/onc on consult - recs appreciated - Psych on consult for depression Bilateral Cerumen - c/w Debrox Urinary retention - Refusing straight cath and borja - c/w flomax Elevated BUN 2/2 Dehydration - Improved - Pt was counseled about fluid intake and appropriate diet - c/w NS at 50cc/hr - Regular diet Conjunctivitis - improved - Topical ciprofloxacin - completed PPX/Diet - Lovenox, protonix - Regular diet Dispo: Continue to monitor patient on the floor. As per CT surgery, plan is for VATS on Saturday. Case was discussed and reviewed with Attending Physician, Dr. Novak <Flor Novak - Last Filed: 03/30/18 13:21> Objective - Vital Signs/Intake and Output Vital Signs (last 24 hours): Temp Pulse Resp BP Pulse Ox 97.4 F L 95 H 18 115/69 97 03/30/18 06:00 03/30/18 06:00 03/30/18 06:00 03/30/18 06:00 03/30/18 06:00 - Medications Medications: Current Medications Acetylcysteine (Acetylcysteine 20%) 4 ml IH BIDRESP [facility] Last Admin: 03/30/18 08:53 Dose: 4 ml Benzonatate (Tessalon Perles) 100 mg PO TID [facility] Last Admin: 03/30/18 12:45 Dose: 100 mg Budesonide (Pulmicort Respules) 0.5 mg IH [id number] [facility] Last Admin: 03/30/18 08:53 Dose: 0.5 mg Carbamide Peroxide (Debrox Ear Drops) 0 ml AU BID [facility] Last Admin: 03/30/18 12:33 Dose: Not Given Docusate Sodium (Colace) 100 mg PO DAILY [facility] Last Admin: 03/30/18 10:04 Dose: 100 mg Enoxaparin Sodium (Lovenox) 40 mg SC DAILY [facility]; Protocol Last Admin: 03/30/18 10:03 Dose: 40 mg Fluoxetine HCl (Prozac) 10 mg PO DAILY [facility] Last Admin: 03/30/18 10:06 Dose: 10 mg Guaifenesin (Robitussin) 100 mg PO Q4H PRN PRN Reason: Cough Last Admin: 03/30/18 10:04 Dose: 100 mg Sodium Chloride (Sodium Chloride 0.9%) 1,000 mls @ 50 mls/hr IV .Q20H [facility] Last Admin: 03/30/18 12:45 Dose: 50 mls/hr Levalbuterol HCl (Xopenex) 0.63 mg IH TIDRESP [facility] Last Admin: 03/30/18 08:53 Dose: 0.63 mg Lorazepam (Ativan) 0.5 mg PO TID PRN; Protocol PRN Reason: Anxiety Morphine Sulfate (Morphine) 3 mg IVP Q4H PRN PRN Reason: Pain, severe (8-10) Nystatin (Nystatin Oral Susp) 5 ml PO QID [facility] Last Admin: 03/30/18 12:44 Dose: 5 ml Oxycodone HCl (Oxycodone Immediate Release Tab) 5 mg PO Q6H PRN PRN Reason: Pain, moderate (4-7) Pantoprazole Sodium (Protonix Ec Tab) 40 mg PO ACB [facility] Last Admin: 03/30/18 12:33 Dose: 40 mg Polyethylene Glycol (Miralax) 17 gm PO BID [facility] Last Admin: 03/30/18 12:44 Dose: 17 gm Prednisone (Prednisone Tab) 20 mg PO DAILY [facility] Stop: 04/02/18 10:01 Tamsulosin HCl (Flomax) 0.4 mg PO DAILY [facility] Last Admin: 03/30/18 12:44 Dose: 0.4 mg - Labs Labs: 03/30/18 07:20 03/30/18 07:20 PT 15.6 SECONDS (9.4-12.5) H 03/30/18 07:20 INR 1.35 03/30/18 07:20 APTT 31.0 Seconds (25.1-36.5) 03/30/18 07:20 Attending/Attestation - Attestation I have personally seen and examined this patient.: Yes I have fully participated in the care of the patient.: Yes I have reviewed all pertinent clinical information, including history, physical exam and plan: Yes Notes (Text): 03/30/18 13:20 67 year old male with past medical history of adenocarcinoma of the lungs, hypertension and anxiety who presented with complaint of shortness of breath. He was found to have right sided recurrent pleural effusion and possible pneumonia. Patient is s/p antibiotics therapy. He had thoracocentesis (03/13/18). He has chest tube removed last week. Pleurex catheter was not able to be done due to inadequate amount of fluid as per IR. CT chest showed large hydropneumothorax. CT surgery is following and plan for possible VATS on Saturday. Heme/onc and pulmonary are also following. ENT evaluation was appreciated as well. PT is following and recommended [facility]. However patient wishes to go home with home services. Patient is full code. Overall prognosis is guarded. Daughter is at bedside and questions were answered. Flor Novak MD Hospitalist.
--- NOTE | 2018-03-30 12:12 | RAD ---
Date of service: 03/30/2018 HISTORY: chest tube, hx lung cancer COMPARISON: 03/29/2018 FINDINGS: LUNGS: Large right hydropneumothorax unchanged grossly from prior examination. No left pneumothorax. No pulmonary infiltrate. Probable complete or almost complete atelectasis of right lung. PLEURA: As above CARDIOVASCULAR: There is atherosclerotic calcification of the aortic arch. Normal cardiac size. No congestive change. Left central venous infusion port. OSSEOUS STRUCTURES: No significant abnormalities. VISUALIZED UPPER ABDOMEN: Normal. OTHER FINDINGS: None. IMPRESSION: Large right hydro pneumothorax, unchanged.
[2018-03-30] MEDS: Pantoprazole 40 mg EC Tab PO SCH (12:33)
--- NOTE | 2018-03-30 12:43 | CON ---
DATE: 03/30/2018 HISTORY OF PRESENT ILLNESS: This is a 67-year-old white male who was evaluated for hearing loss bilaterally for two-week duration. The patient was admitted on 03/11/2018 with a diagnosis of septicemia, pneumonia and lung cancer. The patient denied previous hearing loss in the past and denied any other ear, nose and throat problems at the current time. The patient did state that this episode occurred a few weeks ago following a coughing spell, which initiated the hearing loss. PHYSICAL EXAMINATION: GENERAL: The patient is alert and oriented, in no acute distress other than some pain which he was experiencing. HEENT: Physical examination revealed evidence of fluid within the right middle ear cavity. An otoscopic examination with cerumen present on the left side, which was attempted to be removed with irrigation and was partially removed. Nasal examination revealed evidence of septal deviation. Oropharyngeal examination was unremarkable. NECK: Neck examination was unremarkable too. IMPRESSION: The patient is suffering from an otitis media with effusion involving the right ear as well as cerumen involving the left side. The patient is currently on IV Solu-Medrol, which he should continue with hopeful improvement of the right middle ear effusion. The patient should also be placed on Debrox 5-10 drops to the left ear 2-3 times a day with reevaluation of his cerumen removal in approximately one-week duration. Should the patient's hearing loss continue, we would recommend outpatient audiologic evaluation to determine resolution of the effusion present in the right middle ear as well as to look for additional sensorineural hearing loss or other etiological factors. If you have any further questions regarding the care of this patient, feel free to contact my office. Florencio Bryd DO
[2018-03-30] MEDS: POLYETHYLENE GLYCOL 3350 17 GM/Dose PACKET PO SCH ×2 (12:44→18:33)
[2018-03-30] MEDS: Nystatin 100,000 Units/ml Oral Susp 5 ml UD PO SCH ×4 (12:44→22:43)
[2018-03-30] MEDS ORDERED: Morphine 2 mg/ml ISec IVP ONE (12:45)
[2018-03-30] MEDS: Sodium Chloride 0.9% 1,000 ML IV SCH (12:45)
--- NOTE | 2018-03-30 14:16 | CP.PCM.PN ---
Subjective - Date & Time of Evaluation Date of Evaluation: 03/30/18 Time of Evaluation: 09:25 - Subjective Subjective: Comfortable, no fevers, still feels weak. Objective - Vital Signs/Intake and Output Vital Signs (last 24 hours): Temp Pulse Resp BP Pulse Ox 97.7 F 100 H 20 121/66 96 03/29/18 06:00 03/29/18 06:00 03/29/18 06:00 03/29/18 06:00 03/29/18 06:00 - Medications Medications: Current Medications Acetylcysteine (Acetylcysteine 20%) 4 ml IH BIDRESP [facility] Last Admin: 03/29/18 07:01 Dose: 4 ml Benzonatate (Tessalon Perles) 100 mg PO TID [facility] Last Admin: 03/29/18 09:47 Dose: 100 mg Budesonide (Pulmicort Respules) 0.5 mg IH [id number] [facility] Last Admin: 03/29/18 07:01 Dose: 0.5 mg Carbamide Peroxide (Debrox Ear Drops) 0 ml AU BID [facility] Docusate Sodium (Colace) 100 mg PO DAILY [facility] Last Admin: 03/29/18 09:47 Dose: 100 mg Enoxaparin Sodium (Lovenox) 40 mg SC DAILY [facility]; Protocol Last Admin: 03/29/18 09:44 Dose: 40 mg Fluoxetine HCl (Prozac) 10 mg PO DAILY [facility] Last Admin: 03/29/18 09:47 Dose: 10 mg Guaifenesin (Robitussin) 100 mg PO Q4H PRN PRN Reason: Cough Last Admin: 03/24/18 09:07 Dose: 100 mg Sodium Chloride (Sodium Chloride 0.9%) 1,000 mls @ 50 mls/hr IV .Q20H [facility] Last Admin: 03/28/18 21:15 Dose: 50 mls/hr Levalbuterol HCl (Xopenex) 0.63 mg IH TIDRESP [facility] Last Admin: 03/29/18 07:01 Dose: 0.63 mg Methylprednisolone (Solu-Medrol) 20 mg IVP DAILY [facility] Last Admin: 03/29/18 09:53 Dose: 20 mg Morphine Sulfate (Morphine) 2 mg IVP Q6H PRN PRN Reason: Pain, severe (8-10) Last Admin: 03/29/18 09:44 Dose: 2 mg Nystatin (Nystatin Oral Susp) 5 ml PO QID [facility] Last Admin: 03/29/18 09:52 Dose: 5 ml Oxycodone/Acetaminophen (Percocet 5/325 Mg Tab) 1 tab PO Q6H PRN PRN Reason: Pain, moderate (4-7) Stop: 03/31/18 20:29 Pantoprazole Sodium (Protonix Ec Tab) 40 mg PO ACB [facility] Last Admin: 03/29/18 09:47 Dose: 40 mg Polyethylene Glycol (Miralax) 17 gm PO BID [facility] Last Admin: 03/29/18 09:52 Dose: 17 gm Tamsulosin HCl (Flomax) 0.4 mg PO DAILY [facility] Last Admin: 03/29/18 09:51 Dose: 0.4 mg - Labs Labs: 03/29/18 07:00 03/29/18 07:00 PT 16.2 SECONDS (9.4-12.5) H 03/11/18 20:55 INR 1.41 03/11/18 20:55 APTT 28.5 Seconds (25.1-36.5) 03/11/18 20:55 - Constitutional Appears: Chronically Ill - Head Exam Head Exam: NORMAL INSPECTION - Respiratory Exam Respiratory Exam: Decreased Breath Sounds - Cardiovascular Exam Cardiovascular Exam: +S1, +S2 - GI/Abdominal Exam GI & Abdominal Exam: Soft. absent: Tenderness Assessment and Plan - Assessment and Plan (Free Text) Plan: Assessment S/P severe sepsis with acute renal failure and VDRF due to right sided HCAP stage 4 lung cancer with mets to bone and liver S/P port-a-cath placement HTN significant smoking history history of chronic alcohol use anxiety Plan continue to monitor off antibiotics since he is at risk for nosocomial infections - completed course of Doxycycline and Merrem repeat CXR from 03/26 is showing unchanged right sided pneumothorax
--- NOTE | 2018-03-30 19:38 | PN ---
DATE: 03/30/[address] [facility] visit on the medical floor. For Dr. Vaughn. SUBJECTIVE: The patient is a 67-year-old male, seen lying, awake in bed with the patient known to have a significant right hydropneumothorax for which a planned VATS procedure by Dr. Trinidad surgeon is scheduled for Saturday according to his surgical fellow's note with the patient now reported significant pain 8 out of 10 to the right thigh, right hip, and back of which narcotics analgesics was given 2 mg of morphine with minimal effect. He is also anxious for which Ativan 1 mg was given orally with the patient now being evaluated by myself along with Dr. Read, Laundry Tech, with the patient's family at the bedside. It is known that the patient suffers with stage IV metastatic nonsmall cell carcinoma of the lung with a PleurX catheter unable to be placed recently with the plan as per surgical reason for Dr. Trinidad, reporting that VATS on Saturday without pleurodesis and PleurX placement will be planned. PHYSICAL EXAMINATION GENERAL: Text. VITAL SIGNS: Temperature 97.4, pulse 95, respirations 18, blood pressure 115/69, pulse ox 97%. HEENT: Tongue is dry. in mouth, he has nasal cannula oxygen . NECK: Supple. HEART: Tachy rate, regular rhythm. LUNGS: Occasional rhonchi on the left. No decreased breath sounds. No breath sounds on the right as the patient has unknown hydropneumothorax on the right. ABDOMEN: Soft with vague tenderness to gentle palpation on the right thigh. EXTREMITIES: +1 edema bilateral. NEUROLOGIC: Somnolent, lethargic, but arousable after Ativan given earlier. LABORATORY DATA: The patient's labs were done. White cell count 11.6, hemoglobin 9.4, hematocrit of 29.9, platelet count of 96,000 with a metabolic panel showing a calcium of 7.2, otherwise normal metabolic panel. INR 1.35. The patient did have a chest x-ray done earlier today, it was read as large right hydropneumothorax unchanged. The patient also had a consult with Dr. Byrd, ear, nose and throat strategic consultant with the patient now known to suffer otitis media with effusion on the right ear, as well as cerumen involving left ear with Debrox recommended. ASSESSMENT: Stage IV non-small cell carcinoma of lung, status post pleural effusion with thoracentesis on the right with subsequent hydropneumothorax in an ability to place PleurX catheter, hypertension, history of ETOH abuse, anxiety, gastroesophageal reflux disease, otitis media, impact of cerumen, chronic obstructive pulmonary disease, anemia of chronic disease, hypokalemia since corrected, anxiety,intractable pain of cancer. PLAN: After conversation with Dr. Read, Dr. Vaughn, he is present now with medical regimen with VATS procedure with a possible PleurX catheter. As per Dr. Trinidad, thoracic surgeon with the patient's analgesics modified to address his significant pain. It should be noted that the patient has been in a recumbent position, this maybe contributing to his pain on that side due to DJD issues. However,we will modify his morphine 3 mg IV every 4 hours p.r.n. severe pain with oxycodone 5 mg every 6 hours p.r.n. for moderate pain, with his Ativan dose cut back from 1 mg to 0.5 mg three t.i.d. p.r.n. for anxiety. After discussion with Dr. Read, we will continue present medical regimen as above. The patient will be monitored clinically with labs, with subsequent treatment as noted above. This is complex patient with comprehensive medically necessary and appropriate visit carried out in excess of 70 minutes with the patient's and his sister's questions answered to their satisfaction. Rocky Jacobs MD
--- NOTE | 2018-03-30 21:15 | CON ---
DATE: 03/30/2018 HISTORY OF PRESENT ILLNESS: The patient is 67-year-old male whose psychiatrist is following up on the medical floor for depression. Psychiatrist has been adjusted his medications for his depression and recently the patient at bedside was present or change Prozac as the patient report that he had considered depression and hopelessness. I reviewed Dr. Mi's note and that patient was at bedside today as well. The patient reports that as far he tolerated the Prozac and feels it is beneficial to Cymbalta. Denies any side effects on this medications and feels that appetite is improving a little bit, though he still had a lot of anxiety and requested to have p.r.n. continuous. He denies any suicidal thoughts, any wish and denies any hallucinations behavioral issues. Labs and vital signs are reviewed. MEDICATIONS: Include Prozac 10 mg daily, Ativan 0.5 mg p.o. t.i.d. p.r.n. IMPRESSION: Rule out mood disorder due to general medical condition, rule out adjustment disorder with depressed and anxious mood and primary diagnosis and rule out major depressive disorder. PLAN: This provider will increase Prozac 20 mg minimal therapeutic for depression. The patient had tolerated Prozac 10 mg very well. We will continue with Ativan p.r.n. The patient reports he still has panic episodes at times. His psychiatry will followup one more time on Saturday04/01/2018 and if stable we will sign off. Carlos A Trimble MD
--- NOTE | 2018-03-30 23:14 | PN ---
DATE: 03/30/2018 SUBJECTIVE: The patient lying in the bed. Dr. Rocky Jacobs is at bedside. Daughter is bedside. Apparently, he had a lot of pain of low back and legs, antianxiety as well as pain management was given. He received morphine and Ativan. Presently, he feels much better, short of breath with exertion. No hemoptysis, hematemesis, hematuria. No diarrhea. Has low back pain with leg discomfort. OBJECTIVE: GENERAL: In no acute distress. VITAL SIGNS: Temperature is 98, heart rate is 95, respiratory rate is 18, blood pressure 115/69, pulse ox 97% on room air. HEENT: Moist mucous membrane. Crowded airway. Mallampati score 4. NECK: Supple. No JVD. LUNGS: No breath sound in the right lung. Scattered rhonchi in the left lung. HEART: S1, S2. ABDOMEN: Soft, nontender. No organomegaly. EXTREMITIES: Not much edema. NEUROLOGIC: Awake, alert, follows simple command. MEDICATIONS: He is on Mucomyst inhaler twice a day, lorazepam 0.5 mg three times a day p.r.n., Colace 100 mg daily, having TobraDex eardrops, Flomax 0.4 mg daily, Lovenox 40 mg daily, MiraLax 17 g twice a day, morphine 3 mg IV every four hours p.r.n., nystatin 5 mL four times a day., oxycodone immediate release 5 mg every 6 hours p.r.n., Protonix 40 mg ACB, Prozac 10 mg daily, budesonide inhaler twice a day, Robitussin 100 mg every four hours p.r.n, IV fluid normal saline 50 mL per hour, Solu-Medrol is 20 mg daily, Tessalon Perles 100 mg three times a day, Xopenex inhaler every 8 hour. LABORATORY DATA: Shows hemoglobin 97.4, hematocrit 29.9, WBC 11.6, platelet count is 96. INR 1.35, PTT 31. Sodium 136, potassium 2.8, chloride 108, bicarbonate 27, BUN 14, creatinine 0.7, glucose 80, calcium is 7.2, AST 21. ALT 56, alkaline phosphatase is 21, albumin is 2.1. Microbiology: Blood culture, urine culture, nares culture have no growth. Chest x-ray done this morning shows large right hydropneumothorax with no changes from previous x-rays. IMPRESSION AND PLAN: Metastatic stage IV nonsmall-cell lung cancer with malignant effusion, status post chest tube placement with drainage of fluid. Has a large pneumothorax which converted to hydropneumothorax. Chronic lung disease, chronic pain syndrome. Case discussed with the patient, family, nursing staff. I also spoke to Dr. Rocky Jacobs. Spoke to medical imaging technician. May discontinue Solu-Medrol, start prednisone 15 mg daily. Continue inhaled bronchodilator, pain management, gastric and deep vein thrombosis prophylaxes. The patient seen by Thoracic Surgery, being scheduled for video-assisted thoracoscopic surgery. Overall, poor prognosis. Continue therapy. Thank you and we will follow with you. Fred Read MD
[2018-03-31] MEDS: Morphine 2 mg/ml ISec IVP PRN ×4 (02:02→23:11)
[2018-03-31 07:22] LABS: BASO # 0.01 K/mm3 (0.0-2.0); BASO % 0.1 % (0.0-3.0); EOS % 0.2 % (1.5-5.0); GRAN # 13.54 (1.4-6.5); HEMOGLOBIN 9.6 g/dL (14.0-18.0); MEAN CELL VOLUME 86.7 fl (80.0-105.0); MEAN CORPUSCULAR HEMOGLOBIN 27.2 pg (25.0-35.0); MEAN CORPUSCULAR HGB CONC 31.4 g/dl (31.0-37.0); MEAN PLATELET VOLUME 10.8 fl (7.0-11.0); MONO # 1.2 (0.1-0.6); MONO % 7.7 % (1.0-6.0); RBC 3.53 10^6/uL (3.5-6.1); RED CELL DISTRIBUTION WIDTH 19.6 % (11.5-14.5); WHITE BLOOD COUNT 15.8 10^3/uL (4.5-11.0)
[2018-03-31 07:44] LABS: ALB/GLOB RATIO 0.9 (1.1-1.8); ALBUMIN 2.1 g/dL (3.0-4.8); ALT/SGPT 48 U/L (7-56); AST/SGOT 18 U/L (17-59); BLOOD UREA NITROGEN 17 mg/dL (7-21); CALCIUM 7.7 mg/dL (8.4-10.5); GFR NON-AFRICAN AMERICAN > 60
[2018-03-31] MEDS: Levalbuterol 0.63 MG/3 ML Inhal Soln UD IH SCH ×3 (08:00→21:30)
[2018-03-31] MEDS: Budesonide 0.5 mg/2 ml Inhal Susp UD IH SCH ×2 (08:00→21:30)
[2018-03-31] MEDS: Acetylcysteine 20% Inhal Soln (4ml) IH SCH ×2 (08:00→21:30)
--- NOTE | 2018-03-31 08:13 | CP.PCM.PN ---
<Paloma Rodriguez - Last Filed: 03/31/18 16:04> Subjective - Date & Time of Evaluation Date of Evaluation: 03/31/18 Time of Evaluation: 08:12 - Subjective Subjective: Paloma Rodriguez, PGY-1 Medicine Progress Note for Dr. Sidhu: Pt was seen and examined this AM at bedside. Pt states that he has noted increased SOB, but states that his pain has been improving. He states that he is tolerating his diet though is stating that he does not have much of an appetite. He also states that he has a persistent cough that has neither improved or worsened from admission. He denies having any fevers, chils, chest pain, nausea or vomiting, dysuria or constipation/diarrhea. Objective - Vital Signs/Intake and Output Vital Signs (last 24 hours): Temp Pulse Resp BP Pulse Ox 98 F 116 H 18 130/80 95 03/31/18 06:00 03/31/18 06:00 03/31/18 06:00 03/31/18 06:00 03/31/18 06:00 Intake and Output: 03/31/18 03/31/18 06:59 18:59 Intake Total 550 Balance 550 - Medications Medications: Current Medications Acetylcysteine (Acetylcysteine 20%) 4 ml IH BIDRESP [facility] Last Admin: 03/31/18 08:00 Dose: 4 ml Benzonatate (Tessalon Perles) 100 mg PO TID [facility] Last Admin: 03/30/18 18:33 Dose: 100 mg Budesonide (Pulmicort Respules) 0.5 mg IH [id number] [facility] Last Admin: 03/31/18 08:00 Dose: 0.5 mg Carbamide Peroxide (Debrox Ear Drops) 0 ml AU BID [facility] Last Admin: 03/30/18 18:34 Dose: 1 drop Docusate Sodium (Colace) 100 mg PO DAILY [facility] Last Admin: 03/30/18 10:04 Dose: 100 mg Enoxaparin Sodium (Lovenox) 40 mg SC DAILY [facility]; Protocol Last Admin: 03/30/18 10:03 Dose: 40 mg Fluoxetine HCl (Prozac) 10 mg PO DAILY [facility] Last Admin: 03/30/18 10:06 Dose: 10 mg Guaifenesin (Robitussin) 100 mg PO Q4H PRN PRN Reason: Cough Last Admin: 03/30/18 18:32 Dose: 100 mg Sodium Chloride (Sodium Chloride 0.9%) 1,000 mls @ 50 mls/hr IV .Q20H [facility] Last Admin: 03/30/18 12:45 Dose: 50 mls/hr Levalbuterol HCl (Xopenex) 0.63 mg IH TIDRESP [facility] Last Admin: 03/31/18 08:00 Dose: 0.63 mg Lorazepam (Ativan) 0.5 mg PO TID PRN; Protocol PRN Reason: Anxiety Last Admin: 03/30/18 20:45 Dose: 0.5 mg Morphine Sulfate (Morphine) 3 mg IVP Q4H PRN PRN Reason: Pain, severe (8-10) Last Admin: 03/31/18 07:07 Dose: 3 mg Nystatin (Nystatin Oral Susp) 5 ml PO QID [facility] Last Admin: 03/30/18 22:43 Dose: 5 ml Oxycodone HCl (Oxycodone Immediate Release Tab) 5 mg PO Q6H PRN PRN Reason: Pain, moderate (4-7) Pantoprazole Sodium (Protonix Ec Tab) 40 mg PO ACB [facility] Last Admin: 03/30/18 12:33 Dose: 40 mg Polyethylene Glycol (Miralax) 17 gm PO BID [facility] Last Admin: 03/30/18 18:33 Dose: 17 gm Prednisone (Prednisone Tab) 15 mg PO DAILY [facility] Tamsulosin HCl (Flomax) 0.4 mg PO DAILY [facility] Last Admin: 03/30/18 12:44 Dose: 0.4 mg - Labs Labs: 03/31/18 07:00 03/31/18 07:00 PT 15.6 SECONDS (9.4-12.5) H 03/30/18 07:20 INR 1.35 03/30/18 07:20 APTT 31.0 Seconds (25.1-36.5) 03/30/18 07:20 - Constitutional Appears: Non-toxic, No Acute Distress, Cachectic, Chronically Ill - Eye Exam Eye Exam: EOMI, Normal appearance, PERRL - Respiratory Exam Respiratory Exam: Decreased Breath Sounds (R worse than L, rhonchi also noted in upper lobe of lung), NORMAL BREATHING PATTERN. absent: Accessory Muscle Use - Cardiovascular Exam Cardiovascular Exam: RRR, +S1, +S2. absent: Gallop, Rubs - GI/Abdominal Exam GI & Abdominal Exam: Soft, Normal Bowel Sounds. absent: Firm, Guarding, Rigid, Tenderness - Extremities Exam Extremities Exam: Normal Inspection. absent: Calf Tenderness, Tenderness - Back Exam Back Exam: NORMAL INSPECTION. 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 Pt was admitted to ICU for management and treatment of hypoxemic respiratory failure. Pt has recurrent pleural effusion, likely malignant, was now transferred to floors since pt was stable enough to be transferred out of ICU. Pts chest tube was pulled and had some reaccumulation noted on CXR. Pt had CT chest 03/30 which showed large hydropneumothorax. CT surgery wants to do VATS procedure for pt on Saturday Plan: 1) Recurrent R pleural effusion - CT Chest 03/19 shows decrease in right pleural effusion, multi-loculated hydro pneumothorax, improved aeration of the right lung, multiple liver masses - Chest tube was pulled, pleur-x unable to be placed because there wasnt enough fluid. - Chest CT 03/28 showed large hydropneumothorax, which was also noted on repeat CT on 03/30. - Blood culture negative for 5 days - completed doxy, merrem course - WBC wnl today, afebrile - Solumedrol 20 qd, pulmicort, mucomyst, xopenex, tessalon perles - Echo shows EF 53%, RVSP 61 - IR, pulm, cardio consult - Home O2 eval tomorrow - Thoracic surgery consult, VATS on Saturday 2) Elevated BUN - Improved - Likely dehydration - Pt has poor appetite, counseling given on increased food/fluid intake - Continue NS to 50cc/hr 3) Urinary retention - Refusing straight cath and borja - Continue flomax 4) Hx of stage 4 non small cell lung cancer - Mets to the liver, lungs, bone - Currently on immunotherapy - Candidate for laser ablation of the right main stem with stent and tumor debulking - Pt/family to make decision in regards to degree of aggressive treatment - Heme/onc on consult - recs appreciated - Psych on consult for depression 5) Mild hyperkalemia - Resolved 6) Tachycardia-resolved - Continue home toprol XL 100mg 7) Conjunctivitis - Resolved - Topical ciprofloxacin - completed 8) PPX/Diet - Lovenox protonix - HHD Patient seen and case discussed with attending, Dr. Nahum Rodriguez, PGY1 <Fred Sidhu - Last Filed: 04/02/18 07:59> Objective - Vital Signs/Intake and Output Vital Signs (last 24 hours): Temp Pulse Resp BP Pulse Ox 97.4 F L 115 H 14 110/60 94 L 04/01/18 16:50 04/01/18 18:15 04/01/18 16:50 04/01/18 18:15 04/01/18 16:50 Intake and Output: 04/02/18 04/02/18 06:59 18:59 Intake Total 602 Output Total 600 Balance 2 - Medications Medications: Current Medications Acetylcysteine (Acetylcysteine 20%) 4 ml IH BIDRESP [facility] Last Admin: 04/02/18 07:24 Dose: 4 ml Aspirin (Ecotrin) 81 mg PO DAILY [facility] Last Admin: 04/01/18 19:45 Dose: 81 mg Atorvastatin Calcium (Lipitor) 80 mg PO DIN [facility] Last Admin: 04/01/18 19:43 Dose: 80 mg Benzonatate (Tessalon Perles) 100 mg PO TID [facility] Last Admin: 04/01/18 11:51 Dose: Not Given Budesonide (Pulmicort Respules) 0.5 mg IH [id number] [facility] Last Admin: 04/02/18 07:24 Dose: 0.5 mg Carbamide Peroxide (Debrox Ear Drops) 0 ml AU BID [facility] Last Admin: 04/01/18 11:47 Dose: 5 drop Docusate Sodium (Colace) 100 mg PO DAILY [facility] Last Admin: 04/01/18 11:46 Dose: Not Given Enoxaparin Sodium (Lovenox) 40 mg SC DAILY [facility]; Protocol Last Admin: 03/31/18 11:38 Dose: 40 mg Fluoxetine HCl (Prozac) 10 mg PO DAILY [facility] Last Admin: 04/01/18 11:51 Dose: Not Given Hydromorphone HCl (Dilaudid) 0.5 mg IVP Q15M PRN PRN Reason: Pain, Moderate/Severe (4-10) Dextrose/Sodium Chloride (Dextrose 5%/0.45% Ns 1000 Ml) 1,000 mls @ 50 mls/hr IV .Q20H [facility] Last Admin: 04/01/18 11:43 Dose: 50 mls/hr Heparin Sodium/Sodium Chloride (Heparin 81753 Units/250ml 1/2 Normal Saline) 25,000 units in 250 mls @ 9.798 mls/hr IV .Q24H [facility]; Protocol Last Titration: 04/02/18 02:00 Dose: 14 units/kg/hr, 11.431 mls/hr NOREPINEPHRINE BIT/0.9 % NACL (Levophed 4 Mg/ 250 Ml Ns Premixed) 4 mg in 250 m ls @ 15 mls/hr IV .[id number] PRN; Protocol PRN Reason: TITRATE PER MD ORDER Last Admin: 04/01/18 19:16 Dose: 4 mcg/min, 15 mls/hr Propofol (Diprivan) 1,000 mg in 100 mls @ 7.348 mls/hr IV .[id number] PRN; Protocol PRN Reason: TITRATE PER MD ORDER Last Admin: 04/02/18 01:00 Dose: 15 mcg/kg/min, 7.348 mls/hr Levalbuterol HCl (Xopenex) 0.63 mg IH TIDRESP [facility] Last Admin: 04/02/18 07:24 Dose: 0.63 mg Lorazepam (Ativan) 0.5 mg PO TID PRN; Protocol PRN Reason: Anxiety Last Admin: 03/31/18 16:36 Dose: 0.5 mg Metoprolol Tartrate (Lopressor) 5 mg IVP Q6H [facility] Last Admin: 04/01/18 18:15 Dose: 5 mg Morphine Sulfate (Morphine) 2 mg IVP Q4H PRN PRN Reason: Pain, moderate (4-7) Last Admin: 04/01/18 09:43 Dose: 2 mg Nystatin (Nystatin Oral Susp) 5 ml PO QID [facility] Last Admin: 04/01/18 21:29 Dose: Not Given Oxycodone HCl (Oxycodone Immediate Release Tab) 30 mg PO Q6H PRN PRN Reason: Pain, Mild (1-3) Last Admin: 04/01/18 07:38 Dose: 30 mg Pantoprazole Sodium (Protonix Ec Tab) 40 mg PO ACB [facility] Last Admin: 04/01/18 08:11 Dose: Not Given Petrolatum (Desitin Maximum Strength Topical 40% Oint) 0 gm TOP Q4H PRN PRN Reason: Rash Polyethylene Glycol (Miralax) 17 gm PO BID [facility] Last Admin: 04/01/18 11:50 Dose: Not Given Prednisone (Prednisone Tab) 15 mg PO DAILY [facility] Last Admin: 04/01/18 11:51 Dose: Not Given Tamsulosin HCl (Flomax) 0.4 mg PO DAILY [facility] Last Admin: 04/01/18 11:50 Dose: Not Given - Labs Labs: 04/02/18 05:15 04/02/18 05:15 PT 13.7 SECONDS (9.4-12.5) H 04/01/18 05:36 INR 1.19 04/01/18 05:36 APTT 46.4 Seconds (26.9-38.3) H 04/02/18 00:45 Attending/Attestation - Attestation I have personally seen and examined this patient.: Yes I have fully participated in the care of the patient.: Yes I have reviewed all pertinent clinical information, including history, physical exam and plan: Yes Notes (Text): 04/02/18 07:56 Medical record note made by the resident after discussion with my direction and input after the patient was personally seen and examined by me. I have reviewed the chart and agree that the record accurately reflects by personal performance of the history, physical exam, data review, and medical decision-making, in the course for the patient. I have also personally directed the plan of care. 67M with PMH of adenocarcinoma of lune lungs, HTN, EtOH abuse, Anxiety, presented [place] [facility] [place] 03[place] w/ complaints of worsening SOB x2 weeks due to due to recurrent right sided pleural effusion, likely malignant and Possible Pneumonia. Patient had thoracentesis done on 01/11/19 and 1890 ml of fluid was removed. Repeat Chest X ray today showed complete opacification of right side. Patient underwent chest tube placement followed by re positioning of chest tube. Pleurex catheter was not able to be done due to inadequate amount of fluid as per IR. CT chest showed large hydropneumothorax. CT surgery has evaluated the patient and patient is scheduled for VATS tomorrow 04/01/18. Patient is full code. Overall prognosis is guarded. Management plan was discussed in detail with patient and patient daughter who is at bed side. Education was provided
[2018-03-31] MEDS ORDERED: MethylPREDNISolone 40 mg Vial IVP SCH (10:00)
--- NOTE | 2018-03-31 10:34 | RAD ---
Date of service: 03/31/2018 HISTORY: chest tube, hx lung cancer COMPARISON: 03/30/2018 FINDINGS: LUNGS: Large right hydropneumothorax unchanged PLEURA: No significant pleural effusion identified, no pneumothorax apparent. CARDIOVASCULAR: Aortic calcification Normal cardiac size. No pulmonary vascular congestion. OSSEOUS STRUCTURES: No significant abnormalities. VISUALIZED UPPER ABDOMEN: Normal. OTHER FINDINGS: None. IMPRESSION: No change in large right-sided hydropneumothorax
[2018-03-31] MEDS: Nystatin 100,000 Units/ml Oral Susp 5 ml UD PO SCH ×3 (11:36→19:55)
[2018-03-31] MEDS: POLYETHYLENE GLYCOL 3350 17 GM/Dose PACKET PO SCH ×2 (11:37→18:56)
[2018-03-31] MEDS: Enoxaparin 40 mg Syringe SC SCH (11:38)
[2018-03-31] MEDS: Pantoprazole 40 mg EC Tab PO SCH (11:38)
--- NOTE | 2018-03-31 12:25 | CP.PCM.PN ---
Subjective - Date & Time of Evaluation Date of Evaluation: 03/31/18 Time of Evaluation: 11:00 - Subjective Subjective: Comfortable, no fevers. Objective - Vital Signs/Intake and Output Vital Signs (last 24 hours): Temp Pulse Resp BP Pulse Ox 97.4 F L 95 H 18 115/69 97 03/30/18 06:00 03/30/18 06:00 03/30/18 06:00 03/30/18 06:00 03/30/18 06:00 - Medications Medications: Current Medications Acetylcysteine (Acetylcysteine 20%) 4 ml IH BIDRESP [facility] Last Admin: 03/30/18 08:53 Dose: 4 ml Benzonatate (Tessalon Perles) 100 mg PO TID [facility] Last Admin: 03/30/18 14:12 Dose: 100 mg Budesonide (Pulmicort Respules) 0.5 mg IH [id number] [facility] Last Admin: 03/30/18 08:53 Dose: 0.5 mg Carbamide Peroxide (Debrox Ear Drops) 0 ml AU BID [facility] Last Admin: 03/30/18 12:33 Dose: Not Given Docusate Sodium (Colace) 100 mg PO DAILY [facility] Last Admin: 03/30/18 10:04 Dose: 100 mg Enoxaparin Sodium (Lovenox) 40 mg SC DAILY [facility]; Protocol Last Admin: 03/30/18 10:03 Dose: 40 mg Fluoxetine HCl (Prozac) 10 mg PO DAILY [facility] Last Admin: 03/30/18 10:06 Dose: 10 mg Guaifenesin (Robitussin) 100 mg PO Q4H PRN PRN Reason: Cough Last Admin: 03/30/18 10:04 Dose: 100 mg Sodium Chloride (Sodium Chloride 0.9%) 1,000 mls @ 50 mls/hr IV .Q20H [facility] Last Admin: 03/30/18 12:45 Dose: 50 mls/hr Levalbuterol HCl (Xopenex) 0.63 mg IH TIDRESP [facility] Last Admin: 03/30/18 08:53 Dose: 0.63 mg Lorazepam (Ativan) 0.5 mg PO TID PRN; Protocol PRN Reason: Anxiety Methylprednisolone (Solu-Medrol) 20 mg IVP DAILY [facility] Morphine Sulfate (Morphine) 3 mg IVP Q4H PRN PRN Reason: Pain, severe (8-10) Nystatin (Nystatin Oral Susp) 5 ml PO QID [facility] Last Admin: 03/30/18 14:02 Dose: 5 ml Oxycodone HCl (Oxycodone Immediate Release Tab) 5 mg PO Q6H PRN PRN Reason: Pain, moderate (4-7) Pantoprazole Sodium (Protonix Ec Tab) 40 mg PO ACB [facility] Last Admin: 03/30/18 12:33 Dose: 40 mg Polyethylene Glycol (Miralax) 17 gm PO BID [facility] Last Admin: 03/30/18 12:44 Dose: 17 gm Tamsulosin HCl (Flomax) 0.4 mg PO DAILY [facility] Last Admin: 03/30/18 12:44 Dose: 0.4 mg - Labs Labs: 03/30/18 07:20 03/30/18 07:20 PT 15.6 SECONDS (9.4-12.5) H 03/30/18 07:20 INR 1.35 03/30/18 07:20 APTT 31.0 Seconds (25.1-36.5) 03/30/18 07:20 - Constitutional Appears: Chronically Ill - Head Exam Head Exam: NORMAL INSPECTION - Respiratory Exam Respiratory Exam: Decreased Breath Sounds - Cardiovascular Exam Cardiovascular Exam: +S1, +S2 - GI/Abdominal Exam GI & Abdominal Exam: Soft. absent: Tenderness Assessment and Plan - Assessment and Plan (Free Text) Plan: Assessment S/P severe sepsis with acute renal failure and VDRF due to right sided HCAP stage 4 lung cancer with mets to bone and liver S/P port-a-cath placement HTN significant smoking history history of chronic alcohol use anxiety Plan continue to monitor off antibiotics since he is at risk for hospital-acquired infections - completed course of Doxycycline and Merrem repeat CXR from 03/31 is showing unchanged right sided pneumothorax
[2018-03-31] MEDS ORDERED: Zinc Oxide Topical 40% Oint (Desitin) TOP PRN (12:36)
--- NOTE | 2018-03-31 13:13 | PN ---
DATE: 03/31/2018 PULMONARY PROGRESS NOTE REQUESTING PHYSICIAN: Dr. Novak. SUBJECTIVE: The patient is lying in bed, asleep, but arousable. Daughter is at bedside. The patient reports shortness of breath with exertion. No headache, rhinitis,chest pain, abdominal pain, nausea, vomiting, diarrhea, leg pain or leg swelling at this time. The patient denies any pain at this time. OBJECTIVE: GENERAL: In no acute distress. VITAL SIGNS: Blood pressure 130/80, pulse 116, temperature 98 and oxygen saturation 95%. HEENT: Moist mucous membrane. Crowded airway. Mallampati score 4. NECK: Supple. No JVD. CARDIOVASCULAR: S1 and S2 audible. LUNGS: Scattered rhonchi on the left. No breath sound on the right. ABDOMEN: Soft and nontender. No distention. No organomegaly. EXTREMITIES: Plus 1 bilateral lower extremities edema. NEUROLOGIC: Awake, alert, and verbal. Follows simple commands. MEDICATIONS: Reviewed. Mucomyst 4 mL inhalation twice a day, Tessalon Perles 100 mg three times a day, Pulmicort 0.5 mg inhalation every 12 hours, ear drops twice a day, Colace 100 mg daily, Lovenox 40 mg daily, Prozac 10 mg daily, Robitussin 100 mg every 4 hours p.r.n., Xopenex 0.63 mg inhalation three times a day, Ativan 0.5 mg three times a day p.r.n., Morphine 30 mg IV push every 4 hours p.r.n., nystatin oral suspension 5 mL p.o. four times a day, oxycodone 5 mg every 6 hours p.r.n., Protonix 40 mg morning, MiraLax 17 g twice a day, prednisone 15 mg twice a daily, sodium chloride 0.9% 1000 mL at 50 mL per hour and Flomax 0.4 mg daily. LABORATORY DATA: Reviewed. WBC 15.8, RBC 3.53, hemoglobin 9.6, hematocrit 30.6 and platelets 129. Sodium 136, potassium 3.9, chloride 107, carbon dioxide 26, anion gap 6, BUN 17, creatinine 0.7, GFR greater than 60, random glucose 89, calcium 7.7, total bilirubin 0.8, AST 18, ALT 48, alkaline phosphatase 126, total protein 4.5, albumin 2.1, globulin 2.4 and albumin-globulin ratio of 0.9. Chest x-ray shows no change in right side hydropneumothorax. IMPRESSION AND PLAN: Metastatic stage IV non-small cell lung cancer with malignant effusion status post chest tube placement with drainage of fluid, had large pneumothorax which converted to hydropneumothorax, chronic lung disease, chronic pain syndrome. The patient is currently on prednisone 15 mg daily, we will continue and taper prednisone in another day or so. Continue inhale bronchodilator, pain management, gastric prophylaxis, deep venous thrombosis prophylaxis. The patient to be scheduled for video assisted thorascopic surgery by thoracic surgeon. Overall prognosis is poor. This patient was seen and examined with Dr. Read. Discussed assessment and plan as described above. Thank you for this consult and we will follow with you. Mark Luke APN Fred Read MD [facility]
--- NOTE | 2018-03-31 13:17 | CP.PCM.PN ---
Subjective - Date & Time of Evaluation Date of Evaluation: 03/31/18 Time of Evaluation: 13:14 - Subjective Subjective: Surgery Progress note- Dr. Fan Pt seen and examined. Has panic attack/SOB overnight, Ativan given, improved significantly. Daughter at bedside. Shortness of breath remains Objective - Vital Signs/Intake and Output Vital Signs (last 24 hours): Temp Pulse Resp BP Pulse Ox 98 F 116 H 18 130/80 95 03/31/18 06:00 03/31/18 06:00 03/31/18 06:00 03/31/18 06:00 03/31/18 06:00 Intake and Output: 03/31/18 03/31/18 06:59 18:59 Intake Total 550 Balance 550 - Medications Medications: Current Medications Acetylcysteine (Acetylcysteine 20%) 4 ml IH BIDRESP [facility] Last Admin: 03/31/18 08:00 Dose: 4 ml Benzonatate (Tessalon Perles) 100 mg PO TID [facility] Last Admin: 03/31/18 11:38 Dose: 100 mg Budesonide (Pulmicort Respules) 0.5 mg IH [id number] [facility] Last Admin: 03/31/18 08:00 Dose: 0.5 mg Carbamide Peroxide (Debrox Ear Drops) 0 ml AU BID [facility] Last Admin: 03/31/18 11:35 Dose: 5 drop Docusate Sodium (Colace) 100 mg PO DAILY [facility] Last Admin: 03/31/18 11:37 Dose: 100 mg Enoxaparin Sodium (Lovenox) 40 mg SC DAILY [facility]; Protocol Last Admin: 03/31/18 11:38 Dose: 40 mg Fluoxetine HCl (Prozac) 10 mg PO DAILY [facility] Last Admin: 03/31/18 11:38 Dose: 10 mg Guaifenesin (Robitussin) 100 mg PO Q4H PRN PRN Reason: Cough Last Admin: 03/30/18 18:32 Dose: 100 mg Sodium Chloride (Sodium Chloride 0.9%) 1,000 mls @ 50 mls/hr IV .Q20H [facility] Last Admin: 03/30/18 12:45 Dose: 50 mls/hr Levalbuterol HCl (Xopenex) 0.63 mg IH TIDRESP [facility] Last Admin: 03/31/18 08:00 Dose: 0.63 mg Lorazepam (Ativan) 0.5 mg PO TID PRN; Protocol PRN Reason: Anxiety Last Admin: 03/30/18 20:45 Dose: 0.5 mg Morphine Sulfate (Morphine) 3 mg IVP Q4H PRN PRN Reason: Pain, severe (8-10) Last Admin: 03/31/18 11:52 Dose: 3 mg Nystatin (Nystatin Oral Susp) 5 ml PO QID [facility] Last Admin: 03/31/18 11:36 Dose: 5 ml Oxycodone HCl (Oxycodone Immediate Release Tab) 5 mg PO Q6H PRN PRN Reason: Pain, moderate (4-7) Pantoprazole Sodium (Protonix Ec Tab) 40 mg PO ACB [facility] Last Admin: 03/31/18 11:38 Dose: 40 mg Petrolatum (Desitin Maximum Strength Topical 40% Oint) 0 gm TOP Q4H PRN PRN Reason: Rash Polyethylene Glycol (Miralax) 17 gm PO BID [facility] Last Admin: 03/31/18 11:37 Dose: Not Given Prednisone (Prednisone Tab) 15 mg PO DAILY [facility] Last Admin: 03/31/18 11:37 Dose: 15 mg Tamsulosin HCl (Flomax) 0.4 mg PO DAILY [facility] Last Admin: 03/31/18 11:38 Dose: 0.4 mg - Labs Labs: 03/31/18 07:00 03/31/18 07:00 PT 15.6 SECONDS (9.4-12.5) H 03/30/18 07:20 INR 1.35 03/30/18 07:20 APTT 31.0 Seconds (25.1-36.5) 03/30/18 07:20 - Constitutional Appears: Non-toxic, No Acute Distress - Head Exam Head Exam: ATRAUMATIC - Eye Exam Eye Exam: EOMI. absent: Scleral icterus - ENT Exam ENT Exam: Mucous Membranes Moist - Respiratory Exam Respiratory Exam: Decreased Breath Sounds, Wheezes. absent: Accessory Muscle Use, Respiratory Distress - Cardiovascular Exam Cardiovascular Exam: REGULAR RHYTHM. absent: Bradycardia, Tachycardia - GI/Abdominal Exam GI & Abdominal Exam: Soft. absent: Distended, Firm, Guarding, Rigid, Tenderness - Neurological Exam Neurological Exam: Alert, Awake, Oriented x3 - Psychiatric Exam Psychiatric exam: Normal Affect - Skin Skin Exam: Intact, Warm Assessment and Plan - Assessment and Plan (Free Text) Assessment: 67M w. stage IV lung CA w. R hydropneumothorax Plan: -AM CXR: R effusion slightly increased -Plan for VATs Tomorrow Saturday w. talc pleurodesis and pleurex catheter placement -NPO @ [place] -d/w Dr. Trin[place] Surgical Attending [facility] PGY2
[2018-03-31] MEDS ORDERED: oxyCODONE 5 mg Immediate Release Tab PO PRN (13:22)
[2018-03-31] MEDS ORDERED: Morphine 2 mg/ml ISec IVP STA ×2 (17:26→20:50)
[2018-03-31] MEDS: Sodium Chloride 0.9% 1,000 ML IV SCH (18:58)
[2018-04-01] MEDS: Nystatin 100,000 Units/ml Oral Susp 5 ml UD PO SCH ×3 (01:35→21:29)
[2018-04-01] MEDS: Morphine 2 mg/ml ISec IVP PRN ×2 (04:00→09:43)
[2018-04-01 06:10] LABS: EOS % 0.3 % (1.5-5.0); GRAN # 9.27 (1.4-6.5); GRAN % 85.9 % (50.0-68.0); HEMOGLOBIN 8.8 g/dL (14.0-18.0); LYMPH # 0.8 (1.2-3.4); LYMPH % 7.1 % (22.0-35.0); MEAN CORPUSCULAR HEMOGLOBIN 27.2 pg (25.0-35.0); MEAN CORPUSCULAR HGB CONC 31.2 g/dl (31.0-37.0); MEAN PLATELET VOLUME 10.4 fl (7.0-11.0); MONO # 0.7 (0.1-0.6); MONO % 6.7 % (1.0-6.0); RBC 3.24 10^6/uL (3.5-6.1); RED CELL DISTRIBUTION WIDTH 19.7 % (11.5-14.5); WHITE BLOOD COUNT 10.8 10^3/uL (4.5-11.0)
[2018-04-01 06:11] LABS: ALB/GLOB RATIO 0.9 (1.1-1.8); ALBUMIN 2.1 g/dL (3.0-4.8); ALT/SGPT 45 U/L (7-56); AST/SGOT 15 U/L (17-59); BLOOD UREA NITROGEN 19 mg/dL (7-21); CALCIUM 7.7 mg/dL (8.4-10.5); GFR NON-AFRICAN AMERICAN > 60; INR 1.19; PARTIAL THROMBOPLASTIN TIME 29.2 Seconds (25.1-36.5); PROTHROMBIN TIME 13.7 SECONDS (9.4-12.5)
--- NOTE | 2018-04-01 06:52 | CP.PCM.PN ---
<Paloma Rodriguez - Last Filed: 04/01/18 15:49> Subjective - Date & Time of Evaluation Date of Evaluation: 04/01/18 Time of Evaluation: 08:45 - Subjective Subjective: Paloma Rodriguez, PGY-1 Medicine Progress Note for Dr. Sidhu: Pt was seen and examined this AM at bedside. Pt states that he slept well overnight, despite having some pain. Pt was given morphine at 4am and was drowsy on exam. Pt reports that he does not note any worsening SOB, and states that his pain is better controlled now. Pt will be going for VATS procedure at 1pm today. Pt has no other acute complaints at this time. Objective - Vital Signs/Intake and Output Vital Signs (last 24 hours): Temp Pulse Resp BP Pulse Ox 97.9 F 111 H 18 105/79 97 03/31/18 22:57 03/31/18 22:57 03/31/18 22:57 03/31/18 22:57 03/31/18 22:57 Intake and Output: 03/31/18 04/01/18 18:59 06:59 Intake Total 240 Balance 240 - Medications Medications: Current Medications Acetylcysteine (Acetylcysteine 20%) 4 ml IH BIDRESP [facility] Last Admin: 03/31/18 21:30 Dose: 4 ml Benzonatate (Tessalon Perles) 100 mg PO TID [facility] Last Admin: 03/31/18 19:55 Dose: 100 mg Budesonide (Pulmicort Respules) 0.5 mg IH [id number] [facility] Last Admin: 03/31/18 21:30 Dose: 0.5 mg Carbamide Peroxide (Debrox Ear Drops) 0 ml AU BID [facility] Last Admin: 03/31/18 18:56 Dose: 5 drop Docusate Sodium (Colace) 100 mg PO DAILY [facility] Last Admin: 03/31/18 11:37 Dose: 100 mg Enoxaparin Sodium (Lovenox) 40 mg SC DAILY [facility]; Protocol Last Admin: 03/31/18 11:38 Dose: 40 mg Fluoxetine HCl (Prozac) 10 mg PO DAILY [facility] Last Admin: 03/31/18 11:38 Dose: 10 mg Guaifenesin (Robitussin) 100 mg PO Q4H PRN PRN Reason: Cough Last Admin: 03/30/18 18:32 Dose: 100 mg Sodium Chloride (Sodium Chloride 0.9%) 1,000 mls @ 50 mls/hr IV .Q20H [facility] Last Admin: 03/31/18 18:58 Dose: 50 mls/hr Levalbuterol HCl (Xopenex) 0.63 mg IH TIDRESP [facility] Last Admin: 03/31/18 21:30 Dose: 0.63 mg Lorazepam (Ativan) 0.5 mg PO TID PRN; Protocol PRN Reason: Anxiety Last Admin: 03/31/18 16:36 Dose: 0.5 mg Morphine Sulfate (Morphine) 2 mg IVP Q4H PRN PRN Reason: Pain, moderate (4-7) Last Admin: 04/01/18 04:00 Dose: 2 mg Nystatin (Nystatin Oral Susp) 5 ml PO QID [facility] Last Admin: 04/01/18 01:35 Dose: Not Given Oxycodone HCl (Oxycodone Immediate Release Tab) 30 mg PO Q6H PRN PRN Reason: Pain, Mild (1-3) Pantoprazole Sodium (Protonix Ec Tab) 40 mg PO ACB [facility] Last Admin: 03/31/18 11:38 Dose: 40 mg Petrolatum (Desitin Maximum Strength Topical 40% Oint) 0 gm TOP Q4H PRN PRN Reason: Rash Polyethylene Glycol (Miralax) 17 gm PO BID [facility] Last Admin: 03/31/18 18:56 Dose: Not Given Prednisone (Prednisone Tab) 15 mg PO DAILY [facility] Last Admin: 03/31/18 11:37 Dose: 15 mg Tamsulosin HCl (Flomax) 0.4 mg PO DAILY [facility] Last Admin: 03/31/18 11:38 Dose: 0.4 mg - Labs Labs: 04/01/18 05:36 04/01/18 05:36 PT 13.7 SECONDS (9.4-12.5) H 04/01/18 05:36 INR 1.19 04/01/18 05:36 APTT 29.2 Seconds (25.1-36.5) 04/01/18 05:36 - Constitutional Appears: Non-toxic, No Acute Distress, Cachectic, Chronically Ill, Other (somnolent) - Head Exam Head Exam: ATRAUMATIC, NORMAL INSPECTION, NORMOCEPHALIC - Eye Exam Eye Exam: EOMI, PERRL - Respiratory Exam Respiratory Exam: Decreased Breath Sounds (Worse on the R than L, there is no noted breath sounds on the R.), NORMAL BREATHING PATTERN. absent: Accessory Muscle Use, Rales, Rhonchi, Wheezes, Respiratory Distress - Cardiovascular Exam Cardiovascular Exam: RRR, +S1, +S2. absent: Gallop, Rubs - GI/Abdominal Exam GI & Abdominal Exam: Soft, Normal Bowel Sounds. absent: Firm, Guarding, Rigid, Tenderness - Extremities Exam Extremities Exam: Normal Capillary Refill. absent: Calf Tenderness - Back Exam Back Exam: NORMAL INSPECTION. 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 Pt was admitted to ICU for management and treatment of hypoxemic respiratory failure. Pt has recurrent pleural effusion, likely malignant, was now transferred to floors since pt was stable enough to be transferred out of ICU. Pts chest tube was pulled and had some reaccumulation noted on CXR. Pt had CT chest 03/30 which showed large hydropneumothorax. CT surgery will take pt for VATs today at 1 pm. Pt is NPO. Plan: 1) Recurrent R pleural effusion - CT Chest 03/19 shows decrease in right pleural effusion, multi-loculated hydropneumothorax, improved aeration of the right lung, multiple liver masses - Chest tube was pulled, pleur-x unable to be placed because there wasnt enough fluid. - Chest CT 03/28 showed large hydropneumothorax, which was also noted on repeat CT on 03/30. - Blood culture negative for 5 days - completed doxy, merrem course - WBC wnl today, afebrile - Solumedrol 20 qd, pulmicort, mucomyst, xopenex, tessalon perles - Echo shows EF 53%, RVSP 61 - IR, pulm, cardio consult - Home O2 eval tomorrow - Thoracic surgery consult, VATS today at 1pm. 2) Elevated BUN - Improved - Continue D5 1/2NS to 50cc/hr 3) Urinary retention - Refusing straight cath and borja - Continue flomax 4) Hx of stage 4 non small cell lung cancer - Mets to the liver, lungs, bone - Currently on immunotherapy - Candidate for laser ablation of the right main stem with stent and tumor debulking - Pt/family to make decision in regards to degree of aggressive treatment - Heme/onc on consult - recs appreciated - Psych on consult for depression 5) Mild hyperkalemia - Resolved 6) Tachycardia-resolved - Continue home toprol XL 100mg 7) Conjunctivitis - Resolved - Topical ciprofloxacin - completed 8) PPX/Diet - Lovenox protonix - HHD Patient seen and case discussed with attending, Dr. Nahum Rodriguez, PGY1 <Fred Sidhu - Last Filed: 04/02/18 07:55> Objective - Vital Signs/Intake and Output Vital Signs (last 24 hours): Temp Pulse Resp BP Pulse Ox 97.4 F L 115 H 14 110/60 94 L 04/01/18 16:50 04/01/18 18:15 04/01/18 16:50 04/01/18 18:15 04/01/18 16:50 Intake and Output: 04/02/18 04/02/18 06:59 18:59 Intake Total 602 Output Total 600 Balance 2 - Medications Medications: Current Medications Acetylcysteine (Acetylcysteine 20%) 4 ml IH BIDRESP [facility] Last Admin: 04/02/18 07:24 Dose: 4 ml Aspirin (Ecotrin) 81 mg PO DAILY [facility] Last Admin: 04/01/18 19:45 Dose: 81 mg Atorvastatin Calcium (Lipitor) 80 mg PO DIN [facility] Last Admin: 04/01/18 19:43 Dose: 80 mg Benzonatate (Tessalon Perles) 100 mg PO TID [facility] Last Admin: 04/01/18 11:51 Dose: Not Given Budesonide (Pulmicort Respules) 0.5 mg IH [id number] [facility] Last Admin: 04/02/18 07:24 Dose: 0.5 mg Carbamide Peroxide (Debrox Ear Drops) 0 ml AU BID [facility] Last Admin: 04/01/18 11:47 Dose: 5 drop Docusate Sodium (Colace) 100 mg PO DAILY [facility] Last Admin: 04/01/18 11:46 Dose: Not Given Enoxaparin Sodium (Lovenox) 40 mg SC DAILY [facility]; Protocol Last Admin: 03/31/18 11:38 Dose: 40 mg Fluoxetine HCl (Prozac) 10 mg PO DAILY [facility] Last Admin: 04/01/18 11:51 Dose: Not Given Hydromorphone HCl (Dilaudid) 0.5 mg IVP Q15M PRN PRN Reason: Pain, Moderate/Severe (4-10) Dextrose/Sodium Chloride (Dextrose 5%/0.45% Ns 1000 Ml) 1,000 mls @ 50 mls/hr IV .Q20H [facility] Last Admin: 04/01/18 11:43 Dose: 50 mls/hr Heparin Sodium/Sodium Chloride (Heparin 86621 Units/250ml 1/2 Normal Saline) 25,000 units in 250 mls @ 9.798 mls/hr IV .Q24H [facility]; Protocol Last Titration: 04/02/18 02:00 Dose: 14 units/kg/hr, 11.431 mls/hr NOREPINEPHRINE BIT/0.9 % NACL (Levophed 4 Mg/ 250 Ml Ns Premixed) 4 mg in 250 mls @ 15 mls/hr IV .[id number] PRN; Protocol PRN Reason: TITRATE PER MD ORDER Last Admin: 04/01/18 19:16 Dose: 4 mcg/min, 15 mls/hr Propofol (Diprivan) 1,000 mg in 100 mls @ 7.348 mls/hr IV .[id number] PRN; Protocol PRN Reason: TITRATE PER MD ORDER Last Admin: 04/02/18 01:00 Dose: 15 mcg/kg/min, 7.348 mls/hr Levalbuterol HCl (Xopenex) 0.63 mg IH TIDRESP [facility] Last Admin: 04/02/18 07:24 Dose: 0.63 mg Lorazepam (Ativan) 0.5 mg PO TID PRN; Protocol PRN Reason: Anxiety Last Admin: 03/31/18 16:36 Dose: 0.5 mg Metoprolol Tartrate (Lopressor) 5 mg IVP Q6H [facility] Last Admin: 04/01/18 18:15 Dose: 5 mg Morphine Sulfate (Morphine) 2 mg IVP Q4H PRN PRN Reason: Pain, moderate (4-7) Last Admin: 04/01/18 09:43 Dose: 2 mg Nystatin (Nystatin Oral Susp) 5 ml PO QID [facility] Last Admin: 04/01/18 21:29 Dose: Not Given Oxycodone HCl (Oxycodone Immediate Release Tab) 30 mg PO Q6H PRN PRN Reason: Pain, Mild (1-3) Last Admin: 04/01/18 07:38 Dose: 30 mg Pantoprazole Sodium (Protonix Ec Tab) 40 mg PO ACB [facility] Last Admin: 04/01/18 08:11 Dose: Not Given Petrolatum (Desitin Maximum Strength Topical 40% Oint) 0 gm TOP Q4H PRN PRN Reason: Rash Polyethylene Glycol (Miralax) 17 gm PO BID [facility] Last Admin: 04/01/18 11:50 Dose: Not Given Prednisone (Prednisone Tab) 15 mg PO DAILY [facility] Last Admin: 04/01/18 11:51 Dose: Not Given Tamsulosin HCl (Flomax) 0.4 mg PO DAILY [facility] Last Admin: 04/01/18 11:50 Dose: Not Given - Labs Labs: 04/02/18 05:15 04/02/18 05:15 PT 13.7 SECONDS (9.4-12.5) H 04/01/18 05:36 INR 1.19 04/01/18 05:36 APTT 46.4 Seconds (26.9-38.3) H 04/02/18 00:45 Attending/Attestation - Attestation I have personally seen and examined this patient.: Yes I have fully participated in the care of the patient.: Yes I have reviewed all pertinent clinical information, including history, physical exam and plan: Yes Notes (Text): 04/02/18 07:52 Medical record note made by the resident after discussion with my direction and input after the patient was personally seen and examined by me. I have reviewed the chart and agree that the record accurately reflects by personal performance of the history, physical exam, data review, and medical decision-making, in the course for the patient. I have also personally directed the plan of care. 67M with PMH of adenocarcinoma of lune lungs, HTN, EtOH abuse, Anxiety, presented to [facility] on 03/11/18 w/ complaints of worsening SOB x2 weeks due to due to recurrent right sided pleural effusion, likely malignant and Possible Pneumonia. Patient had thoracentesis done on 01/11/19 and 1890 ml of fluid was removed. Repeat Chest X ray today showed complete opacification of right side. Patient underwent chest tube placement followed by re positioning of chest tube.Repeat chest X ray today showed hydropneumo thorax.. Pleurex catheter was not able to be done due to inadequate amount of fluid as per IR. CT chest showed large hydropneumothorax. CT surgery is following and plan for possible VATS today. Patient is full code. Overall prognosis is guarded. Daughter is at bedside and questions were answered. 04/02/18 07:55
[2018-04-01] MEDS: Levalbuterol 0.63 MG/3 ML Inhal Soln UD IH SCH ×3 (07:15→20:10)
[2018-04-01] MEDS: Budesonide 0.5 mg/2 ml Inhal Susp UD IH SCH ×2 (07:15→20:08)
[2018-04-01] MEDS: Acetylcysteine 20% Inhal Soln (4ml) IH SCH ×2 (07:15→20:07)
[2018-04-01] MEDS: oxyCODONE 30 mg Immediate Release Tab PO PRN (07:38)
[2018-04-01] MEDS: Pantoprazole 40 mg EC Tab PO SCH (08:11)
--- NOTE | 2018-04-01 10:05 | CP.PCM.PN ---
Subjective - Date & Time of Evaluation Date of Evaluation: 04/01/18 Time of Evaluation: 10:00 - Subjective Subjective: PGY-2 heme/onc progress note for Dr Vaughn No acute events noted overnight. Patient seen with daughter at bedside. Patient for VATS later today. Stated he felt weak. Otherwise did not offer any specific complaints. Complained of right sided chest pain which was controlled with pain meds. Drowsy but responsive. Objective - Vital Signs/Intake and Output Vital Signs (last 24 hours): Temp Pulse Resp BP Pulse Ox 97.8 F 110 H 18 126/72 97 04/01/18 07:24 04/01/18 07:24 04/01/18 07:24 04/01/18 07:24 04/01/18 07:24 Intake and Output: 04/01/18 04/01/18 06:59 18:59 Intake Total 240 Output Total 800 Balance -560 - Medications Medications: Current Medications Acetylcysteine (Acetylcysteine 20%) 4 ml IH BIDRESP [facility] Last Admin: 04/01/18 07:15 Dose: 4 ml Benzonatate (Tessalon Perles) 100 mg PO TID [facility] Last Admin: 03/31/18 19:55 Dose: 100 mg Budesonide (Pulmicort Respules) 0.5 mg IH [id number] [facility] Last Admin: 04/01/18 07:15 Dose: 0.5 mg Carbamide Peroxide (Debrox Ear Drops) 0 ml AU BID [facility] Last Admin: 03/31/18 18:56 Dose: 5 drop Docusate Sodium (Colace) 100 mg PO DAILY [facility] Last Admin: 03/31/18 11:37 Dose: 100 mg Enoxaparin Sodium (Lovenox) 40 mg SC DAILY [facility]; Protocol Last Admin: 03/31/18 11:38 Dose: 40 mg Fluoxetine HCl (Prozac) 10 mg PO DAILY [facility] Last Admin: 03/31/18 11:38 Dose: 10 mg Sodium Chloride (Sodium Chloride 0.9%) 1,000 mls @ 50 mls/hr IV .Q20H [facility] Last Admin: 03/31/18 18:58 Dose: 50 mls/hr Levalbuterol HCl (Xopenex) 0.63 mg IH TIDRESP [facility] Last Admin: 04/01/18 07:15 Dose: 0.63 mg Lorazepam (Ativan) 0.5 mg PO TID PRN; Protocol PRN Reason: Anxiety Last Admin: 03/31/18 16:36 Dose: 0.5 mg Morphine Sulfate (Morphine) 2 mg IVP Q4H PRN PRN Reason: Pain, moderate (4-7) Last Admin: 04/01/18 09:43 Dose: 2 mg Nystatin (Nystatin Oral Susp) 5 ml PO QID [facility] Last Admin: 04/01/18 01:35 Dose: Not Given Oxycodone HCl (Oxycodone Immediate Release Tab) 30 mg PO Q6H PRN PRN Reason: Pain, Mild (1-3) Last Admin: 04/01/18 07:38 Dose: 30 mg Pantoprazole Sodium (Protonix Ec Tab) 40 mg PO ACB [facility] Last Admin: 04/01/18 08:11 Dose: Not Given Petrolatum (Desitin Maximum Strength Topical 40% Oint) 0 gm TOP Q4H PRN PRN Reason: Rash Polyethylene Glycol (Miralax) 17 gm PO BID [facility] Last Admin: 03/31/18 18:56 Dose: Not Given Prednisone (Prednisone Tab) 15 mg PO DAILY [facility] Last Admin: 03/31/18 11:37 Dose: 15 mg Tamsulosin HCl (Flomax) 0.4 mg PO DAILY [facility] Last Admin: 03/31/18 11:38 Dose: 0.4 mg - Labs Labs: 04/01/18 05:36 04/01/18 05:36 PT 13.7 SECONDS (9.4-12.5) H 04/01/18 05:36 INR 1.19 04/01/18 05:36 APTT 29.2 Seconds (25.1-36.5) 04/01/18 05:36 - Additional Findings Additional findings: - Constitutional Appears: Non-toxic, No Acute Distress, Chronically Ill - Head Exam Head Exam: ATRAUMATIC, NORMAL INSPECTION - Eye Exam Eye Exam: EOMI, Normal appearance, PERRL - ENT Exam ENT Exam: Mucous Membranes Moist - Neck Exam Neck Exam: Full ROM - Respiratory Exam Respiratory Exam: Decreased Breath Sounds, Rales b/l, NORMAL BREATHING PATTERN - Cardiovascular Exam Cardiovascular Exam: REGULAR RHYTHM, +S1, +S2. absent: Bradycardia, Tachycardia, Murmur - GI/Abdominal Exam GI & Abdominal Exam: Soft, Normal Bowel Sounds. absent: Tenderness - Extremities Exam Extremities Exam: Full ROM, Normal Capillary Refill, Normal Inspection, edema in legs 2+, left elbow edematous compared to right - Neurological Exam Neurological Exam: Alert, Awake - Psychiatric Exam Psychiatric exam: Normal Affect, Normal Mood - Skin Skin Exam: Dry, Intact, Normal Color, Warm, right flank covered in dressing (s/p chest tube removal) Assessment and Plan - Assessment and Plan (Free Text) Plan: Mr. Lambert is a 67 y/o ruben with stage IV NSCLC with hepatic mets s/p RFA currently admitted with recurrent right pleural effusion: Stage IV NSCLC c/b right sided multi-loculated hydro-pneumothorax -with hepatic and bone mets s/p RFA -recurrent right pleural effusion thought to be malignant potentially vs infectious (cytology pending) * s/p thoracentesis 03/13/18 with 1.9L removed * pleural fluid cytology from previous thoracentesis on 03/14/18: rare atypical cells; due to paucity of cells further workup is not possible -chest tube right pleural space placed 03/18/18 -> chest tube removed 03/25/18 -> the site was sutured given there was a leak * convert to pleurX catheter when output stable and right lung re-expands * it should be noted that lung expansion difficult due to tumor burden comp ressing right main stem bronchus * tentative plan is for pleurX catheter placement with Dr Izquierdo - dependent on discussion between Dr Izquierdo and family/patient * Patient is now agreeable to Aspira catheter HOWEVER Dr Izquierdo evaluated ultrasound and deemed there is not enough fluid to warrant a pleurX catheter -Surgery consulted 03/27/18 for failed pleurX catheter placement -> insufficient fluid to warrant placement * VATs 04/01/[address] Trinidad Surgical Attending * 1. Left Radial Arterial line placement. 2. Right VATS (Video Assisted Thorascopic Surgery). 3. Evacuation of Right Pleural fluid (1Liter). 4. Right Chest tube placement. 5. Right Inspira Catheter placement. 6. Right Pleural Biopsy * Right fibrotic lung, trapped. Unable to re-expand * f/u fluid cytology, f/u tissue pathology * patient transferred to ICU post VATs for closer monitoring -currently on immunotherapy -candidate for laser ablation of the right main stem with stent and tumor debulking -patient/family to make decision in regards to degree of aggressive treatment - as of now patient indicated he wants all treatment available Left Elbow Swelling -Duplex of left extremity 03/22/18 was negative for DVT -continue lovenox 40mg sc qd Seen and discussed with Dr Vaughn
[2018-04-01] MEDS: Dextrose 5%/0.45% NS 1,000 ML IV SCH (11:43)
[2018-04-01] MEDS: POLYETHYLENE GLYCOL 3350 17 GM/Dose PACKET PO SCH (11:50)
--- NOTE | 2018-04-01 12:06 | CP.PCM.APN ---
Subjective - Date & Time of Evaluation Date of Evaluation: 04/01/18 Time of Evaluation: 09:00 - Subjective Subjective: pt seen in bed , asleep but easily arousable , pleasant and conversational pt states he has procedure at 1pm. offers no complaints at this time, denies sob or cp daughter at bedside Review of Systems - Review of Systems All systems: reviewed and no additional remarkable complaints except Objective - Vital Signs/Intake and Output Vital Signs (last 24 hours): Temp Pulse Resp BP Pulse Ox 97.8 F 110 H 18 126/72 97 04/01/18 07:24 04/01/18 07:24 04/01/18 07:24 04/01/18 07:24 04/01/18 07:24 Intake and Output: 04/01/18 04/01/18 06:59 18:59 Intake Total 240 Output Total 800 Balance -560 - Medications Medications: Current Medications Acetylcysteine (Acetylcysteine 20%) 4 ml IH BIDRESP [facility] Last Admin: 04/01/18 07:15 Dose: 4 ml Benzonatate (Tessalon Perles) 100 mg PO TID [facility] Last Admin: 04/01/18 11:51 Dose: Not Given Budesonide (Pulmicort Respules) 0.5 mg IH [id number] [facility] Last Admin: 04/01/18 07:15 Dose: 0.5 mg Carbamide Peroxide (Debrox Ear Drops) 0 ml AU BID [facility] Last Admin: 04/01/18 11:47 Dose: 5 drop Docusate Sodium (Colace) 100 mg PO DAILY [facility] Last Admin: 04/01/18 11:46 Dose: Not Given Enoxaparin Sodium (Lovenox) 40 mg SC DAILY [facility]; Protocol Last Admin: 03/31/18 11:38 Dose: 40 mg Fluoxetine HCl (Prozac) 10 mg PO DAILY [facility] Last Admin: 04/01/18 11:51 Dose: Not Given Dextrose/Sodium Chloride (Dextrose 5%/0.45% Ns 1000 Ml) 1,000 mls @ 50 mls/hr IV .Q20H [facility] Last Admin: 04/01/18 11:43 Dose: 50 mls/hr Levalbuterol HCl (Xopenex) 0.63 mg IH TIDRESP [facility] Last Admin: 04/01/18 07:15 Dose: 0.63 mg Lorazepam (Ativan) 0.5 mg PO TID PRN; Protocol PRN Reason: Anxiety Last Admin: 03/31/18 16:36 Dose: 0.5 mg Morphine Sulfate (Morphine) 2 mg IVP Q4H PRN PRN Reason: Pain, moderate (4-7) Last Admin: 04/01/18 09:43 Dose: 2 mg Nystatin (Nystatin Oral Susp) 5 ml PO QID [facility] Last Admin: 04/01/18 11:51 Dose: Not Given Oxycodone HCl (Oxycodone Immediate Release Tab) 30 mg PO Q6H PRN PRN Reason: Pain, Mild (1-3) Last Admin: 04/01/18 07:38 Dose: 30 mg Pantoprazole Sodium (Protonix Ec Tab) 40 mg PO ACB [facility] Last Admin: 04/01/18 08:11 Dose: Not Given Petrolatum (Desitin Maximum Strength Topical 40% Oint) 0 gm TOP Q4H PRN PRN Reason: Rash Polyethylene Glycol (Miralax) 17 gm PO BID [facility] Last Admin: 04/01/18 11:50 Dose: Not Given Prednisone (Prednisone Tab) 15 mg PO DAILY [facility] Last Admin: 04/01/18 11:51 Dose: Not Given Tamsulosin HCl (Flomax) 0.4 mg PO DAILY [facility] Last Admin: 04/01/18 11:50 Dose: Not Given - Labs Labs: 04/01/18 05:36 04/01/18 05:36 PT 13.7 SECONDS (9.4-12.5) H 04/01/18 05:36 INR 1.19 04/01/18 05:36 APTT 29.2 Seconds (25.1-36.5) 04/01/18 05:36 - Constitutional Appears: No Acute Distress - Eye Exam Pupil Exam: NORMAL ACCOMODATION - Respiratory Exam Respiratory Exam: Decreased Breath Sounds, NORMAL BREATHING PATTERN - Cardiovascular Exam Cardiovascular Exam: +S1, +S2 - GI/Abdominal Exam GI & Abdominal Exam: Soft, Normal Bowel Sounds - Neurological Exam Neurological Exam: Alert, Awake - Psychiatric Exam Psychiatric exam: Flat Affect, Normal Mood - Skin Skin Exam: Dry, Intact Assessment and Plan - Assessment and Plan (Free Text) Plan: 67 yr old male with pmh sig for stage Iv lung ca with mets to liver and bone admitted to the ICU for mgmt after presenting to the ED with worsening SOB and hypoxic resp failure, sepsis and new onset chf , right lung white out and pleural effusion pt s/p thoracentesis and right chest tube with cardiac, renal, pul and oncology consultations #sepsis/right lung pne s/p iv antibiotic, stable ID recs noted #stage IV metastatic cancer Oncology note rev'd and recommendations noted #right pleural effusion s/p thoracentesis and now s/p right chest tube removal 03/25. ct shows large hydropneunothorax , plan for VATS with talc pleurodesis and pleurex catheter today at 1 pm discuss with Samuel Tiara - states possible LTACH as dc plan? will follow clinically
--- NOTE | 2018-04-01 13:04 | PN ---
DATE: 04/01/2018 PULMONARY PROGRESS NOTE REFERRING PHYSICIAN: Dr. Novak. SUBJECTIVE: The patient is lying in bed, family at bedside, reports feeling well today. No cough, shortness of breath, chest pain, abdominal pain, nausea, vomiting, diarrhea, or leg pain reported. The patient scheduled for a VATS procedure today. OBJECTIVE: GENERAL: No acute distress. VITAL SIGNS: Blood pressure 126/72, pulse 110, temperature 97.8, oxygen saturation 97% on room air. HEENT: Moist mucous membranes. Crowded airway. Mallampati score of 4. NECK: Supple. No JVD. CARDIOVASCULAR: S1 and S2 audible. LUNGS: Scattered rhonchi on the left. No breath sounds on the right. ABDOMEN: Soft, nontender. No distension. No organomegaly. EXTREMITIES: Bilateral lower extremity edema. NEUROLOGIC: Awake, alert, verbal, follows commands. MEDICATIONS: Reviewed. Mucomyst 4 mL inhalation twice a day, Tessalon Perles 100 mg 3 times a day, Pulmicort 0.5 mg inhalation every 12 hours, Debrox twice a day, dextrose 1000 mL at 50 mL per hour, Colace 100 mg daily, Lovenox 40 mg daily, Prozac 10 mg daily, Xopenex 0.63 mg inhalation 3 times a day, Ativan 0.5 mg 3 times a day p.r.n., morphine 10 mg every 4 hours p.r.n. moderate pain, nystatin oral suspension 5 mg 4 times a day, oxycodone 30 mg every 6 hours p.r.n., Protonix 20 mg in the morning, Desitin topically every 4 hours p.r.n. to affected area, MiraLax 17 g twice a day, prednisone 15 mg daily, Flomax 0.4 mg daily. LABORATORY DATA: Reviewed. WBC 7.8, RBC 3.24, hemoglobin 8.8, hematocrit 28.2, platelets 109. PT 13.7, INR 1.19, APTT 29.2. Sodium 136, potassium 3.9, chloride 108, carbon dioxide 27, anion gap 4, BUN 19, creatinine 0.7, GFR greater than 60, random glucose 93, calcium 7.7, total bilirubin 0.6. AST 15, ALT 45, alkaline phosphatase 106, total protein 4.4, albumin 3.1, globulin 2.3, albumin-globulin ratio 0.9. IMPRESSION AND PLAN: Metastatic stage IV nonsmall cell lung cancer with malignant effusion, status post chest tube placement with drainage of fluid, have large pneumothorax which converted to hydropneumothorax, chronic lung disease, chronic pain syndrome. Continue inhaled bronchodilators, continue steroids, pain management, gastric prophylaxis, deep venous thrombosis prophylaxis. The patient scheduled for a video-assisted thorascopic surgery today. The patient was seen and examined with Dr. Read. Discussed assessment and plan as described above. Thank you for this consult. We will follow with you. Mark Luke APN Fred Read MD
[2018-04-01] MEDS ORDERED: Clindamycin 300 MG/50 ML D5W Premix IVPB ONE (13:24)
[2018-04-01] MEDS ORDERED: Rocuronium 10 mg/ml (5 ml) ONE (13:26)
[2018-04-01] MEDS ORDERED: Lidocaine 1% Inj (20ml) ONE (13:26)
[2018-04-01] MEDS ORDERED: Etomidate 20 mg/10ml Inj IV ONE (13:27)
[2018-04-01] MEDS ORDERED: Neostigmine Methylsulfate 3mg/3ml Syringe IV ONE (15:15)
[2018-04-01] MEDS ORDERED: HYDROmorphone 0.5 mg/0.5 ml ISec IVP PRN (15:21)
[2018-04-01] MEDS ORDERED: Lactated Ringer's 1,000 ML IV SCH (15:30)
[2018-04-01] MEDS ORDERED: HYDROmorphone 0.5 mg/0.5 ml ISec ONE ×2 (16:15→16:41)
[2018-04-01] MEDS ORDERED: HYDROmorphone 0.5 mg/0.5 ml ISec IVP ONE ×2 (16:15→16:40)
--- NOTE | 2018-04-01 16:38 | PCM.SURG1 ---
Surgeon's Initial Post Op Note - Surgeon's Notes Surgeon: Dr. Trinidad Human Resources Mgr: Oliva PGY4, PGY2 Type of Anesthesia: General Endo Anesthesia Administered By: Dr. Mcdaniel Pre-Operative Diagnosis: Persistent R. Hydropneumothorax Operative Findings: Right fibrotic lung, trapped. unable to rexpand. for details see op note Post-Operative Diagnosis: 1. Right Trapped Lung. 2. Right Hyrdopneumothorax Operation Performed: 1. Left Radial Arterial line placement. 2. Right VATS (Video Assisted Thorascopic Surgery). 3. Evacuation of Right Pleural fluid (1Liter). 4. Right Chest tube placement. 5. Right Inspira Catheter placement. 6. Right Pleural Biopsy Specimen/Specimens Removed: 1. Pleural Fluid for cytology, g/s, cell block. 2. Pleural tissue Estimated Blood Loss: EBL {In ML}: 3 Drains Used: Chest Tubes (1. Right chest tube. 2. Inspira (pleurex) Catheter) Post-Op Condition: Fair Date of Surgery/Procedure: 04/01/18 Time of Surgery/Procedure: 16:45
[2018-04-01] MEDS ORDERED: Fentanyl 1000mcg/100ml NS 1,000 MCG/100 ML BAG IV SCH (17:30)
[2018-04-01 17:43] LABS: ARTERIAL BLOOD GAS HCO3 22.9 mmol/L (21-28); ARTERIAL BLOOD GAS PCO2 51 mm/Hg (35-45); ARTERIAL BLOOD GAS PH 7.26 (7.35-7.45); ARTERIAL BLOOD GAS TCO2 24.5 mmol.L (22-28)
[2018-04-01] MEDS ORDERED: Heparin25000 units/250ml 1/2NS 25,000 UNITS/250 ML BAG IV SCH (17:45)
[2018-04-01] MEDS ORDERED: NOREPINEPHRINE BIT/0.9 % NACL 4 MG/250 ML BAG IV PRN (17:48)
[2018-04-01] MEDS ORDERED: Fentanyl 1000mcg/100ml NS 1,000 MCG/100 ML BAG IV ONE (17:49)
--- NOTE | 2018-04-01 17:57 | RAD ---
Date of service: 04/01/2018 HISTORY: s/p VATS and chest tube placement COMPARISON: Chest radiograph dated 03/31/2018. FINDINGS: LUNGS: Complete right lung atelectasis. PLEURA: Large right pneumothorax. CARDIOVASCULAR: Aortic atherosclerotic calcifications. Cardiomediastinal silhouette stably enlarged. OSSEOUS STRUCTURES: Unchanged. VISUALIZED UPPER ABDOMEN: Normal. OTHER FINDINGS: Two large bore right-sided chest tubes. Left internal jugular access chest port, unchanged. Endotracheal tube with tip between the clavicles and mayuri. IMPRESSION: Interval VATS with placement of 2 large bore right-sided chest tubes. Large right pneumothorax. Ensure chest tubes are dissection.
[2018-04-01] MEDS: Metoprolol 1 mg/ml Inj IVP SCH (18:15)
[2018-04-01] MEDS ORDERED: Midazolam 2 MG/2 ML VIAL ONE (18:23)
[2018-04-01 18:34] LABS: GRAN # 9.35 (1.4-6.5); GRAN % 95.4 % (50.0-68.0); LYMPH # 0.2 (1.2-3.4); LYMPH % 1.5 % (22.0-35.0); MEAN CELL VOLUME 88.1 fl (80.0-105.0); MEAN CORPUSCULAR HEMOGLOBIN 27.4 pg (25.0-35.0); MEAN CORPUSCULAR HGB CONC 31.1 g/dl (31.0-37.0); MEAN PLATELET VOLUME 10.7 fl (7.0-11.0); MONO # 0.3 (0.1-0.6); MONO % 3.1 % (1.0-6.0); PLATELET COUNT 152 10^3/uL (120.0-450.0); RBC 3.28 10^6/uL (3.5-6.1); RED CELL DISTRIBUTION WIDTH 19.8 % (11.5-14.5); WHITE BLOOD COUNT 9.8 10^3/uL (4.5-11.0)
--- NOTE | 2018-04-01 18:47 | PCM.PROC ---
<Neris Irwin - Last Filed: 04/01/18 18:45> Procedures Attestation:: I certify that I have explained the specified Operation(s) or Procedure(s), risks, benefits and reasonable alternatives to the Patient and/or other person responsible. The opportunity was given to ask questions and all questions answered - Central Line Placement Right Triple Lumen Catheter Aseptic technique was employed throughout the procedure: Hand Hygiene done prior to procedure, Full sterile barriers (mask, hair cover, sterile gown, sterile gloves), Full body sterile drape, Chloraprep Antiseptic: 30 second prep for IJ or SC sites, Chloraprep Antiseptic: 2 minute prep for Femoral CVP Time Out Performed: Yes Pt. Placed on Pulse Ox Monitor: Yes Central Line Prep: Chlorhexidine-Alcohol Combination Ultrasound Used for Placement: Yes Central Line Lumen Inserted: triple Central Line Length: 16 cm Post Procedure: Sutured in Place, Good Blood Return, All Ports Aspirated, Flushed, Capped, Sterile Dressing Applied Secured by: Suture Post procedure dressing: Gauze, Chlorhexidine disc (Biopatch) Post Procedure X-Ray: Yes Patient Tolerated Procedure: Well, No Complications Immediate Complications: None <Flakito Ambrosio - Last Filed: 04/01/18 18:57> Attending/Attestation - Attestation I have personally seen and examined this patient.: Yes I have fully participated in the care of the patient.: Yes I have reviewed all pertinent clinical information, including history, physical exam and plan: Yes Notes (Text): 04/01/18 18:56 maximum barrier precautions, sterile seldinger technique, time out completed, informed consent obtained. guidewire remioved, strile dressings applied. ebl minimal. cxr is pending
[2018-04-01 19:02] LABS: NEUTROPHIL 93 % (50.0-70.0)
[2018-04-01 19:03] LABS: HYPOCHROMIA 1+; LYMPHOCYTE 3 % (22.0-35.0); MONOCYTE 4 % (1.0-6.0); PLATELET ESTIMATE NORMAL (NORMAL); ROULEAU 2+; TARGET CELLS SLIGHT
[2018-04-01] MEDS: Fentanyl 1000mcg/100ml NS 1,000 MCG/100 ML BAG IV ONE (19:14)
[2018-04-01] MEDS ORDERED: Midazolam 2 MG/2 ML VIAL IVP ONE (19:45)
[2018-04-01 19:52] LABS: BLOOD UREA NITROGEN 21 mg/dL (7-21); CALCIUM 7.5 mg/dL (8.4-10.5); GFR NON-AFRICAN AMERICAN > 60
[2018-04-01 19:58] LABS: TROPONIN I 0.05 ng/mL
--- NOTE | 2018-04-01 20:13 | CARD ---
APPROVED REPORT Date of service: 04/01/2018 EKG Measurement Heart [id number] <Conclusion> Atrial flutter with variable AV block ST elevation, consider inferior injury or acute infarct ACUTE [place] Baseline artifact may preclude rhythm assessment Abnormal ECG
[2018-04-01 21:27] LABS: ARTERIAL BLOOD GAS HCO3 21.3 mmol/L (21-28); ARTERIAL BLOOD GAS O2 SAT 100.5 % (95-98); ARTERIAL BLOOD GAS PCO2 28 mm/Hg (35-45); ARTERIAL BLOOD GAS PH 7.49 (7.35-7.45); ARTERIAL BLOOD GAS TCO2 22.2 mmol.L (22-28)
--- NOTE | 2018-04-01 23:11 | PN ---
DATE: 04/01/2018 SUBJECTIVE: The patient is seen and examined at bedside. He just undergone right-sided VATS with attempted re-expansion of the right lung, which however was unsuccessful (the patient had "trapped lung" and continiuous air leak) and they opted for PleurX catheter, which was placed. At the present time, the patient remained intubated as initially he was borderline hypoxemic. He is on pressor support 5/5 with FiO2 at 80%. Postop labs, chest x-ray, and EKG are pending. Of note, the patient had the procedure lasted for about 2-1/2 hours. urine output over that period of time is not available. Hathaway catheter has been placed right now. The patient did require intermittent squirts of phenylephrine, however, no pressors as a drip. The patient had minimal EBL and did not require blood transfusion. No fever, no chills, no sweats. No nausea, no vomiting, no diarrhea recently noted. PHYSICAL EXAMINATION: VITAL SIGNS: Temperature 97.4, heart rate 90, blood pressure 121/69, respiratory rate 22, oxygen saturation 93% on 4 liters nasal cannula. ENT: Head and neck atraumatic. LUNGS: Decreased breath sounds on the right side and normal on the left side. No rhonchi, no crackles, no wheezes. HEART: Regular rate and rhythm. S1, S2 distant. ABDOMEN: Soft, nontender, nondistended. MUSCULOSKELETAL: Trace bilateral pedal and ankle edema. NEUROLOGIC: The patient was seen moving all extremities spontaneously. SKIN: Moist. PSYCHIATRIC: The patient is still under residual sedation. LABORATORY DATA: WBC 10.8, hemoglobin 8.8, platelet count 109. Sodium 136, potassium 3.9, chloride 108, carbon dioxide 27, BUN 19, creatinine 0.7, glucose 93. WBC 10.8, hemoglobin 8.8, platelet count 109. MEDICATIONS: Percocet, Mucomyst, Tessalon Perles p.o. t.i.d., Pulmicort inhaler, D5 half normal saline at 50 mL/hour, Colace, Lovenox, Prozac, Dilaudid p.r.n., lactated Ringer's at 75 mL/hour (is put temporarily on for 2 hours by surgical team), Xopenex and Ativan p.r.n., morphine p.r.n., nystatin oral suspension, oxycodone p.r.n., Protonix, MiraLax, prednisone 15 mg p.o. daily, Flomax. Chest x-ray is pending. ASSESSMENT AND PLAN: This is a 67-year-old gentleman, who presented to ICU with postoperative respiratory failure after attempted video-assisted thoracoscopic surgery for the trapped lung with failed attempt to re-expand lung. Pleurex catheter was placed. The patient tolerates pressor support pretty well at present time, however, he is still poorly responsive and only questionably able to protect his airways. We will continue with weaning trial, sedation vacation, pain control, head of bed elevated more than 35 degrees, oral hygiene, conservative fluid and oxygen management. Further plan of action will be adjusted based on results of the ordered labs, blood gas, chest x-ray, and EKG. We will continue with DVT and GI prophylaxis. We will put Hathaway catheter in and we will monitor urine output with a goal of having it more than 0.5 mL/kg/hour. We will avoid hyperchloremia and maintain mean arterial pressure more than 65. I will maintain blood glucose within 140-180 range according to NICE-SUGAR trial. We will continue with bronchodilators and steroid taper. The patient will be admitted to ICU for further management and monitoring. Addendum: EKG showed ST elevation in inerior leads with reciprocal changes in anterior leads. Fentanyl drip for pain control was adjusted, statins, bb-ers and aspirin started. spoke with thoracic surgery-->ok with heparin drip, but without bolus-->started. Cardiology (Dr. Singh) wa notified and agree with management. first troponin is negative. BP dropped a bit-->CVL placed, NE started. bedside echo done-->poor window for detailed LV assessment, however grossly appears with preserved contractility ccm time 40 min Flakito Ambrosio MD MTDD
[2018-04-02] MEDS ORDERED: Propofol 10 mg/ml 1,000 MG/100 ML VIAL ONE (01:09)
[2018-04-02] MEDS: Fentanyl 1000mcg/100ml NS 1,000 MCG/100 ML BAG IV ONE (03:00)
[2018-04-02 06:04] LABS: ARTERIAL BLOOD GAS HCO3 22.6 mmol/L (21-28); ARTERIAL BLOOD GAS O2 SAT 100.3 % (95-98); ARTERIAL BLOOD GAS PCO2 31 mm/Hg (35-45); ARTERIAL BLOOD GAS PH 7.47 (7.35-7.45); ARTERIAL BLOOD GAS TCO2 23.6 mmol.L (22-28)
[2018-04-02] MEDS ORDERED: Propofol 10 mg/ml 1,000 MG/100 ML VIAL IV PRN (06:11)
--- NOTE | 2018-04-02 06:28 | CP.PCM.PN ---
Subjective - Date & Time of Evaluation Date of Evaluation: 04/02/18 Time of Evaluation: 06:27 - Subjective Subjective: Surgery Progress note- Dr. Trinidad Patient seen and examined at bedside. Patient is s/p VATS 28F chest tube placement and pleurex catheter. Patient is intubated and sedated propofol 20, Fentanyl 75 on PRVC 400/18/80/5 saturating 99%. Chest tube in palce to suction, no air leak deteced Chest tube 400cc serosang fluid. HR post op between 90-120, currently 98. Post operative patient had Acute EKG changes which showed inferior wall GA, troponins were unremarkable. started heparin ggt. MAPs in mid to low 60s. decision by critical care team to palce central line and started on norepi currently at 4mikes. Remains NPO. Hathaway in place w/ clear urine 1000cc urine. Hgb stable 8.8, 9.2, 8.2. On heparin ggt. Objective - Vital Signs/Intake and Output Vital Signs (last 24 hours): Temp Pulse Resp BP Pulse Ox 97.4 F L 115 H 14 110/60 94 L 04/01/18 16:50 04/01/18 18:15 04/01/18 16:50 04/01/18 18:15 04/01/18 16:50 Intake and Output: 04/01/18 04/02/18 18:59 06:59 Intake Total 1000 100 Balance 1000 100 - Medications Medications: Current Medications Acetylcysteine (Acetylcysteine 20%) 4 ml IH BIDRESP [facility] Last Admin: 04/01/18 20:07 Dose: 4 ml Aspirin (Ecotrin) 81 mg PO DAILY [facility] Last Admin: 04/01/18 19:45 Dose: 81 mg Atorvastatin Calcium (Lipitor) 80 mg PO DIN [facility] Last Admin: 04/01/18 19:43 Dose: 80 mg Benzonatate (Tessalon Perles) 100 mg PO TID [facility] Last Admin: 04/01/18 11:51 Dose: Not Given Budesonide (Pulmicort Respules) 0.5 mg IH [id number] [facility] Last Admin: 04/01/18 20:08 Dose: 0.5 mg Carbamide Peroxide (Debrox Ear Drops) 0 ml AU BID [facility] Last Admin: 04/01/18 11:47 Dose: 5 drop Docusate Sodium (Colace) 100 mg PO DAILY [facility] Last Admin: 04/01/18 11:46 Dose: Not Given Enoxaparin Sodium (Lovenox) 40 mg SC DAILY [facility]; Protocol Last Admin: 03/31/18 11:38 Dose: 40 mg Fluoxetine HCl (Prozac) 10 mg PO DAILY [facility] Last Admin: 04/01/18 11:51 Dose: Not Given Hydromorphone HCl (Dilaudid) 0.5 mg IVP Q15M PRN PRN Reason: Pain, Moderate/Severe (4-10) Dextrose/Sodium Chloride (Dextrose 5%/0.45% Ns 1000 Ml) 1,000 mls @ 50 mls/hr IV .Q20H [facility] Last Admin: 04/01/18 11:43 Dose: 50 mls/hr Heparin Sodium/Sodium Chloride (Heparin 54675 Units/250ml 1/2 Normal Saline) 25,000 units in 250 mls @ 9.798 mls/hr IV .Q24H [facility]; Protocol Last Admin: 04/01/18 19:15 Dose: 12 units/kg/hr, 9.798 mls/hr NOREPINEPHRINE BIT/0.9 % NACL (Levophed 4 Mg/ 250 Ml Ns Premixed) 4 mg in 250 mls @ 15 mls/hr IV .[id number] PRN; Protocol PRN Reason: TITRATE PER MD ORDER Last Admin: 04/01/18 19:16 Dose: 4 mcg/min, 15 mls/hr Fentanyl Citrate (Fentanyl Citrate/Sodium Chloride 1 Mg/100 Ml) 1,000 mcg in 100 mls @ 7.5 mls/hr IV .[id number] ONE; Protocol Stop: 04/02/18 06:49 Last Admin: 04/02/18 03:00 Dose: 75 ml/hr, 7.5 mls/hr Propofol (Diprivan) 1,000 mg in 100 mls @ 7.348 mls/hr IV .[id number] PRN; Protocol PRN Reason: TITRATE PER MD ORDER Last Admin: 04/02/18 01:00 Dose: 15 mcg/kg/min, 7.348 mls/hr Levalbuterol HCl (Xopenex) 0.63 [facility] Last Admin: 04/01/18 20:10 Dose: 0.63 mg Lorazepam (Ativan) 0.5 mg PO TID PRN; Protocol PRN Reason: Anxiety Last Admin: 03/31/18 16:36 Dose: 0.5 mg Metoprolol Tartrate (Lopressor) 5 mg IVP Q6H [facility] Last Admin: 04/01/18 18:15 Dose: 5 mg Morphine Sulfate (Morphine) 2 mg IVP Q4H PRN PRN Reason: Pain, moderate (4-7) Last Admin: 04/01/18 09:43 Dose: 2 mg Nystatin (Nystatin Oral Susp) 5 ml PO QID [facility] Last Admin: 04/01/18 21:29 Dose: Not Given Oxycodone HCl (Oxycodone Immediate Release Tab) 30 mg PO Q6H PRN PRN Reason: Pain, Mild (1-3) Last Admin: 04/01/18 07:38 Dose: 30 mg Pantoprazole Sodium (Protonix Ec Tab) 40 mg PO ACB [facility] Last Admin: 04/01/18 08:11 Dose: Not Given Petrolatum (Desitin Maximum Strength Topical 40% Oint) 0 gm TOP Q4H PRN PRN Reason: Rash Polyethylene Glycol (Miralax) 17 gm PO BID [facility] Last Admin: 04/01/18 11:50 Dose: Not Given Prednisone (Prednisone Tab) 15 mg PO DAILY [facility] Last Admin: 04/01/18 11:51 Dose: Not Given Tamsulosin HCl (Flomax) 0.4 mg PO DAILY [facility] Last Admin: 04/01/18 11:50 Dose: Not Given - Labs Labs: 04/01/18 18:22 04/01/18 19:20 PT 13.7 SECONDS (9.4-12.5) H 04/01/18 05:36 INR 1.19 04/01/18 05:36 APTT 29.2 Seconds (25.1-36.5) 04/01/18 05:36 - Constitutional Appears: No Acute Distress, Chronically Ill - Head Exam Head Exam: ATRAUMATIC - Eye Exam Eye Exam: EOMI. absent: Scleral icterus - ENT Exam ENT Exam: Mucous Membranes Moist - Respiratory Exam Respiratory Exam: NORMAL BREATHING PATTERN. absent: Accessory Muscle Use, Respiratory Distress - Cardiovascular Exam Cardiovascular Exam: Tachycardia, Irregular Rhythm. absent: Bradycardia - GI/Abdominal Exam GI & Abdominal Exam: Distended, Soft. absent: Firm, Guarding, Rigid, Tenderness - Extremities Exam Extremities Exam: Joint Swelling, Normal Capillary Refill, Pedal Edema. absent: Calf Tenderness - Neurological Exam Neurological Exam: Alert, Awake Additional comments: GCS 11T - Skin Skin Exam: Intact, Normal Color Assessment and Plan - Assessment and Plan (Free Text) Assessment: 67M w/ stage IV lung Ca s/p VATS, inspira catheter, 28F Chest tube placement; intra-op fibrosed lung unable to re-expand intraop Plan: - recommend sedation vacation - titration vent and extubation per critical care team - monitor Chest tube outputs - f/u AM CXR - Pending CXR will plan for CT to water seal - MAP > 65 - strict I/O - replace lytes PRN - Hep GGT - continued management per critical care team - further recs per Dr. Vivi Alvarez PGY2
[2018-04-02 06:32] LABS: GRAN # 9.95 (1.4-6.5); GRAN % 88.1 % (50.0-68.0); HEMOGLOBIN 8.2 g/dL (14.0-18.0); LYMPH # 0.7 (1.2-3.4); LYMPH % 6.5 % (22.0-35.0); MEAN CELL VOLUME 87.1 fl (80.0-105.0); MEAN CORPUSCULAR HEMOGLOBIN 27.8 pg (25.0-35.0); MEAN CORPUSCULAR HGB CONC 31.9 g/dl (31.0-37.0); MEAN PLATELET VOLUME 10.5 fl (7.0-11.0); MONO # 0.6 (0.1-0.6); MONO % 5.4 % (1.0-6.0); RBC 2.95 10^6/uL (3.5-6.1); RED CELL DISTRIBUTION WIDTH 19.7 % (11.5-14.5); WHITE BLOOD COUNT 11.3 10^3/uL (4.5-11.0)
[2018-04-02 06:41] LABS: ALB/GLOB RATIO 0.9 (1.1-1.8); ALBUMIN 1.9 g/dL (3.0-4.8); ALT/SGPT 38 U/L (7-56); AST/SGOT 18 U/L (17-59); BLOOD UREA NITROGEN 24 mg/dL (7-21); CALCIUM 7.6 mg/dL (8.4-10.5); GFR NON-AFRICAN AMERICAN > 60
[2018-04-02 06:52] LABS: TROPONIN I 0.06 ng/mL
--- NOTE | 2018-04-02 07:00 | CP.PCM.PN ---
<Paloma Rodriguez - Last Filed: 04/02/18 21:43> Subjective - Date & Time of Evaluation Date of Evaluation: 04/02/18 Time of Evaluation: 07:00 - Subjective Subjective: Paloma Rodriguez, PGY-1 Medicine Progress Note for Dr. Sidhu: Pt was seen and examined this AM at bedside. Yesterday pt had VATS procedure done, and was difficult to extubate due to sedation. Pt was also noted to have inferior wall STEMI on EKG post-procedure. Cardiology called and recommended starting heparin drip. This AM pt is still on heparin drip and pt was s uccessfully extubated earlier this AM. Pt denies fevers, chills, L sided chest pain but does admit to R sided chest pain and soreness from chest tube and pluer-x cath site. Pt states that his SOB is about the same as days previously. At this time he has no other acute complaints. Objective - Vital Signs/Intake and Output Vital Signs (last 24 hours): Temp Pulse Resp BP Pulse Ox 97.4 F L 115 H 14 110/60 94 L 04/01/18 16:50 04/01/18 18:15 04/01/18 16:50 04/01/18 18:15 04/01/18 16:50 Intake and Output: 04/02/18 04/02/18 06:59 18:59 Intake Total 602 Output Total 200 Balance 402 - Medications Medications: Current Medications Acetylcysteine (Acetylcysteine 20%) 4 ml IH BIDRESP [facility] Last Admin: 04/01/18 20:07 Dose: 4 ml Aspirin (Ecotrin) 81 mg PO DAILY [facility] Last Admin: 04/01/18 19:45 Dose: 81 mg Atorvastatin Calcium (Lipitor) 80 mg PO DIN [facility] Last Admin: 04/01/18 19:43 Dose: 80 mg Benzonatate (Tessalon Perles) 100 mg PO TID [facility] Last Admin: 04/01/18 11:51 Dose: Not Given Budesonide (Pulmicort Respules) 0.5 mg IH [id number] [facility] Last Admin: 04/01/18 20:08 Dose: 0.5 mg Carbamide Peroxide (Debrox Ear Drops) 0 ml AU BID [facility] Last Admin: 04/01/18 11:47 Dose: 5 drop Docusate Sodium (Colace) 100 mg PO DAILY [facility] Last Admin: 04/01/18 11:46 Dose: Not Given Enoxaparin Sodium (Lovenox) 40 mg SC DAILY [facility]; Protocol Last Admin: 03/31/18 11:38 Dose: 40 mg Fluoxetine HCl (Prozac) 10 mg PO DAILY [facility] Last Admin: 04/01/18 11:51 Dose: Not Given Hydromorphone HCl (Dilaudid) 0.5 mg IVP Q15M PRN PRN Reason: Pain, Moderate/Severe (4-10) Dextrose/Sodium Chloride (Dextrose 5%/0.45% Ns 1000 Ml) 1,000 mls @ 50 mls/hr IV .Q20H [facility] Last Admin: 04/01/18 11:43 Dose: 50 mls/hr Heparin Sodium/Sodium Chloride (Heparin 76717 Units/250ml 1/2 Normal Saline) 25,000 units in 250 mls @ 9.798 mls/hr IV .Q24H [facility]; Protocol Last Titration: 04/02/18 02:00 Dose: 14 units/kg/hr, 11.431 mls/hr NOREPINEPHRINE BIT/0.9 % NACL (Levophed 4 Mg/ 250 Ml Ns Premixed) 4 mg in 250 mls @ 15 mls/hr IV .[id number] PRN; Protocol PRN Reason: TITRATE PER MD ORDER Last Admin: 04/01/18 19:16 Dose: 4 mcg/min, 15 mls/hr Propofol (Diprivan) 1,000 mg in 100 mls @ 7.348 mls/hr IV .[id number] PRN; Protocol PRN Reason: TITRATE PER MD ORDER Last Admin: 04/02/18 01:00 Dose: 15 mcg/kg/min, 7.348 mls/hr Levalbuterol HCl (Xopenex) 0.63 mg IH TIDRESP [facility] Last Admin: 04/01/18 20:10 Dose: 0.63 mg Lorazepam (Ativan) 0.5 mg PO TID PRN; Protocol PRN Reason: Anxiety Last Admin: 03/31/18 16:36 Dose: 0.5 mg Metoprolol Tartrate (Lopressor) 5 mg IVP Q6H [facility] Last Admin: 04/01/18 18:15 Dose: 5 mg Morphine Sulfate (Morphine) 2 mg IVP Q4H PRN PRN Reason: Pain, moderate (4-7) Last Admin: 04/01/18 09:43 Dose: 2 mg Nystatin (Nystatin Oral Susp) 5 ml PO QID [facility] Last Admin: 04/01/18 21:29 Dose: Not Given Oxycodone HCl (Oxycodone Immediate Release Tab) 30 mg PO Q6H PRN PRN Reason: Pain, Mild (1-3) Last Admin: 04/01/18 07:38 Dose: 30 mg Pantoprazole Sodium (Protonix Ec Tab) 40 mg PO ACB [facility] Last Admin: 04/01/18 08:11 Dose: Not Given Petrolatum (Desitin Maximum Strength Topical 40% Oint) 0 gm TOP Q4H PRN PRN Reason: Rash Polyethylene Glycol (Miralax) 17 gm PO BID [facility] Last Admin: 04/01/18 11:50 Dose: Not Given Prednisone (Prednisone Tab) 15 mg PO DAILY [facility] Last Admin: 04/01/18 11:51 Dose: Not Given Tamsulosin HCl (Flomax) 0.4 mg PO DAILY [facility] Last Admin: 04/01/18 11:50 Dose: Not Given - Labs Labs: 04/02/18 05:15 04/02/18 05:15 PT 13.7 SECONDS (9.4-12.5) H 04/01/18 05:36 INR 1.19 04/01/18 05:36 APTT 46.4 Seconds (26.9-38.3) H 04/02/18 00:45 - Constitutional Appears: No Acute Distress - Head Exam Head Exam: ATRAUMATIC, NORMAL INSPECTION, NORMOCEPHALIC - Eye Exam Eye Exam: EOMI, Normal appearance, PERRL - Respiratory Exam Respiratory Exam: Decreased Breath Sounds (Worse on R than L ), NORMAL BREATHING PATTERN. absent: Accessory Muscle Use, Rales, Rhonchi, Wheezes, Respiratory Distress Additional comments: Chest tube and pleur-x cath sites noted to be clean and dry with no surrounding erythema or purulence. - Cardiovascular Exam Cardiovascular Exam: Tachycardia, REGULAR RHYTHM. absent: Gallop, Rubs - GI/Abdominal Exam GI & Abdominal Exam: Soft, Normal Bowel Sounds. absent: Firm, Guarding, Rigid, Tenderness - Extremities Exam Extremities Exam: Normal Capillary Refill, Pedal Edema (trace pitting edema b/l). absent: Calf Tenderness - Back Exam Back Exam: NORMAL INSPECTION. 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 Pt was admitted to ICU for management and treatment of hypoxemic respiratory failure. Pt has recurrent pleural effusion, likely malignant, was now transferred to floors since pt was stable enough to be transferred out of ICU. Pts chest tube was pulled and had some reaccumulation noted on CXR. Pt had CT chest 03/30 which showed large hydropneumothorax. Pt had VATS procedure done yesterday and was noted to have STEMI, with an elevation of trops noted. Customer Experience Specialist called and pt placed on heparin drip. Pt remained intubated after VATS due to heavy sedation, and was extubated this AM. Plan: 1) Respiratory Failure 2/2 combination of pain medication and anesthestic sedation: - Pt was extubated this AM, and is now on Bipap - CXR done this AM showed improved hydrothorax, but persistent pneumothorax, chest tube and pluer-x cath also noted in CXR - Pt will continue to be monitored 2) Inferior Wall STEMI: - Pt is currently asymptomatic - Noted on EKG on 04/01/18 - Trops: 0.05, 0.07, 0.06 - Heparin drip running - Repeat EKG this AM shows sinus arrythmia - Cont Asa, lipitor - Bedside echo done in ICU 3) Recurrent R pleural effusion s/p VATS procedure 04/01/18 - VATS done 04/01/18, R lung was unable to be reinflated, pleur-x cath and chest tube placed. - Chest tube had 400cc of serosang fluid yesterday. - CXR 04/02/18 showed improved hydrothorax with persistent pneumothorax with chest tube and pleur-x cath noted in CXR. - CT Chest 03/19 shows decrease in right pleural effusion, multi-loculated hydropneumothorax, improved aeration of the right lung, multiple liver masses - Blood culture negative for 5 days - completed doxy, merrem course - WBC wnl today, afebrile - Solumedrol 20 qd, pulmicort, mucomyst, xopenex, tessalon perles - IR, pulm, cardio consult - Thoracic surgery consult, recs appreciated 4) Elevated BUN - Improved - will continue to monitor - Avoid nephrotoxic medications 5) Urinary retention - Pt had cath in place, will continue to monitor 6) Hx of stage 4 non small cell lung cancer - Mets to the liver, lungs, bone - Currently on immunotherapy - Candidate for laser ablation of the right main stem with stent and tumor debulking - Pt/family to make decision in regards to degree of aggressive treatment - Heme/onc on consult - recs appreciated - Psych on consult for depression 7) Mild hyperkalemia - Resolved 8) Tachycardia-resolved - Continue home toprol XL 100mg 9) Conjunctivitis - Resolved - Topical ciprofloxacin - completed 10) PPX/Diet - Lovenox protonix - HHD Patient seen and case discussed with attending, Dr. Nahum Rodriguez, PGY1 <Fred Sidhu - Last Filed: 04/04/18 17:06> Objective - Vital Signs/Intake and Output Vital Signs (last 24 hours): Temp Pulse Resp BP Pulse Ox 97.8 F 112 H 18 116/72 96 04/04/18 12:00 04/04/18 14:00 04/04/18 12:00 04/04/18 12:00 04/04/18 00:01 Intake and Output: 04/04/18 04/04/18 06:59 18:59 Intake Total 900 Output Total 1150 Balance -250 - Labs Labs: 04/04/18 10:20 04/04/18 06:00 PT 13.7 SECONDS (9.4-12.5) H 04/01/18 05:36 INR 1.19 04/01/18 05:36 APTT 54.8 Seconds (26.9-38.3) H 04/02/18 08:00 Attending/Attestation - Attestation I have personally seen and examined this patient.: Yes I have fully participated in the care of the patient.: Yes I have reviewed all pertinent clinical information, including history, physical exam and plan: Yes
[2018-04-02 07:24] LABS: TROPONIN I 0.07 ng/mL
[2018-04-02] MEDS: Budesonide 0.5 mg/2 ml Inhal Susp UD IH SCH ×2 (07:24→20:17)
[2018-04-02] MEDS: Acetylcysteine 20% Inhal Soln (4ml) IH SCH ×2 (07:24→20:17)
[2018-04-02] MEDS: Levalbuterol 0.63 MG/3 ML Inhal Soln UD IH SCH ×3 (07:24→20:17)
[2018-04-02] MEDS ORDERED: Magnesium Sulfate 2 gm/50 ml 2 GM/50 ML BAG IVPB ONE (07:59)
--- NOTE | 2018-04-02 08:40 | RAD ---
Date of service: 04/01/2018 HISTORY: tlc insertion COMPARISON: 04/01/2018 at 1721 hr. FINDINGS: LUNGS: The diffuse left pulmonary vascular congestion with a interstitial lung abnormal markings are similar in appearance The large right pneumothorax with right lung collapse is similar in appearance trachea is midline. Note mediastinal shift seen to suggest tension pneumothorax. To right-sided chest tubes in place tips project over right lung apex as before. Overall size of right large pneumothorax not significantly changed with prior exam. Correlation with their positioning and functioning is essential. Endotracheal tube tip approximately 4 cm from the mayuri-similar. Interval insertion of an NG tube its tip is coiling back in to the gastric cardia region. The short segmental radiolucent segment of it is however in the gastric fundal region. PLEURA: Large right pneumothorax as above. No significant appearing pleural effusion. CARDIOVASCULAR: There is presence of aortic atherosclerotic calcification on x-ray. Probably normal size. Mild asymmetrical left pulmonary venous congestion suspect-similar. Left central line tip in superior vena cava. Right internal jugular vein central line tip also at superior vena cava right atrial junction. OSSEOUS STRUCTURES: Bilateral shoulder arthrosis. VISUALIZED UPPER ABDOMEN: As above OTHER FINDINGS: None. IMPRESSION: Interval insertion of an NG tube tip near GE gastric cardia and detailed as above. Position accordingly. Endotracheal tube and central lines and 2 right chest tubes are all similar in appearance and detailed above. The large right pneumothorax with right lung collapse is similar in its large size. No mediastinal shift to suggest tension pneumothorax seen. Clinical assessment regarding right chest tube positioning and functioning is reiterated.
[2018-04-02] MEDS: HYDROmorphone 1 mg/ml ISec IVP PRN ×3 (09:50→20:16)
--- NOTE | 2018-04-02 10:34 | RAD ---
Date of service: 04/02/2018 HISTORY: s/p VATS and chest tube placement COMPARISON: 04/01/2018 FINDINGS: LUNGS: There are 2 chest tube seen on the right side. There is no change in the pattern of pneumothorax. PLEURA: As above CARDIOVASCULAR: No aortic atherosclerotic calcification present. Normal cardiac size. No pulmonary vascular congestion. OSSEOUS STRUCTURES: No significant abnormalities. VISUALIZED UPPER ABDOMEN: Normal. OTHER FINDINGS: None. IMPRESSION: There are 2 chest tube seen on the right side. There is no change in the pattern of pneumothorax.
--- NOTE | 2018-04-02 11:12 | CP.CCUPN ---
<Neris Irwin - Last Filed: 04/02/18 10:58> CCU Subjective - Physician Review Subjective (Free Text): 04/02/18 10:58 Neris Irwin PGY1 Critical Care Progress Note Patient seen and examined at bedside this morning. No acute events reported night. S/p extubation this morning without incident. Off of heparin and levophed drip this morning. Patient admits to right sided chest discomfort from the surgery but denies CP, SOB, nausea, vomiting and headaches. Chest tube drained 400cc of sanguinous fluid today. CCU Objective - Vital Signs / Intake & Output Vital Signs (Last 4 hours): Vital Signs Pulse Resp Pulse Ox 04/02/18 08:47 117 H 04/02/18 07:25 30 H 100 Intake and Output (Last 8hrs): Intake & Output 04/01/18 04/02/18 04/02/18 22:59 06:59 14:59 Intake Total 602 Output Total 600 Balance 2 Intake: IV 602 left chest wall lucero 432 cath Output: Chest Tube Drainage 400 Right Anterior Chest 400 Urine 200 Urethral (Hathaway) 200 - Physical Exam Head: Positive for: Atraumatic, Normocephalic Pupils: Positive for: PERRL Extroacular Muscles: Positive for: EOMI Conjunctiva: Positive for: Injected Mouth: Positive for: Moist Mucous Membranes Nose (External): Positive for: Atraumatic Nose (Internal): Positive for: No Active Bleeding Neck: Positive for: Normal Range of Motion Respiratory/Chest: Positive for: Decreased Breath Sounds (decreased breath sounds in the right lower lung field ), Other (right sided chest tube present draining red fluid ). Negative for: Respiratory Distress, Accessory Muscle Use Cardiovascular: Positive for: Regular Rate and Rhythm, Normal S1, S2. Negative for: Murmurs Abdomen: Negative for: Tenderness, Distention, Peritoneal Signs Back: Positive for: Normal Inspection Upper Extremity: Positive for: Normal Inspection. Negative for: Cyanosis, Edema Lower Extremity: Positive for: Edema (1+ pitting edema bilaterally) Neurological: Positive for: GCS=15, CN II-XII Intact, Speech Normal Skin: Positive for: Warm, Dry, Normal Color. Negative for: Rashes Psychiatric: Positive for: Alert, Oriented x 3, Normal Insight, Normal Concentration. Negative for: Agitated - Medications Active Medications: Active Medications Generic Name Dose Route Start Last Admin Trade Name Freq PRN Reason Stop Dose Admin Acetylcysteine 4 ml 03/13/18 20:00 04/02/18 07:24 Acetylcysteine 20% IH 4 ml BIDRESP DAVID Administration Aspirin 81 mg 04/01/18 17:45 04/01/18 19:45 Ecotrin PO 81 mg DAILY DAVID Administration Atorvastatin Calcium 80 mg 04/01/18 17:45 04/01/18 19:43 Lipitor PO 80 mg DIN DAVID Administration Benzonatate 100 mg 03/14/18 14:00 04/01/18 11:51 Tessalon Perles PO Not Given TID DAVID Budesonide 0.5 mg 03/13/18 20:00 04/02/18 07:24 Pulmicort Respules IH 0.5 mg [id number] DAVID Administration Carbamide Peroxide 0 ml 03/29/18 10:45 04/01/18 11:47 Debrox Ear Drops AU 5 drop BID DAVID Administration Docusate Sodium 100 mg 03/28/18 13:00 04/01/18 11:46 Colace PO Not Given DAILY DAVID Enoxaparin Sodium 40 mg 03/14/18 10:00 03/31/18 11:38 Lovenox SC 40 mg DAILY DAVID Administration Protocol Fluoxetine HCl 10 mg 03/28/18 10:00 04/01/18 11:51 Prozac PO Not Given DAILY DAVID Hydromorphone HCl 0.5 mg 04/01/18 15:21 Dilaudid IVP Q15M PRN Pain, Moderate/Severe (4-10) Hydromorphone HCl 1 mg 04/02/18 09:35 04/02/18 09:50 Dilaudid IVP 1 mg Q4H PRN Administration Pain, severe (8-10) Dextrose/Sodium Chloride 1,000 mls @ 50 mls/hr 04/01/18 11:30 04/01/18 11:43 Dextrose 5%/0.45% Ns 1000 Ml IV 50 mls/hr .Q20H DAVID Administration NOREPINEPHRINE BIT/0.9 % NACL 4 mg in 250 mls @ 15 mls/hr 04/01/18 17:48 04/01/18 19:16 Levophed 4 Mg/ 250 Ml Ns Premixed IV 4 mcg/min .[id number] PRN 15 mls/hr TITRATE PER MD ORDER Administration Protocol 4 MCG/MIN Propofol 1,000 mg in 100 mls @ 7.348 mls/hr 04/02/18 06:11 04/02/18 01:00 Diprivan IV 15 mcg/kg/min .[id number] PRN 7.348 mls/hr TITRATE PER MD ORDER Administration Protocol 15 MCG/KG/MIN Levalbuterol HCl 0.63 mg 03/13/18 14:00 04/02/18 07:24 Xopenex IH 0.63 mg TIDRESP DAVID Administration Lorazepam 0.5 mg 03/30/18 12:07 03/31/18 16:36 Ativan PO 0.5 mg TID PRN Administration Anxiety Protocol Metoprolol Tartrate 5 mg 04/01/18 17:30 04/01/18 18:15 Lopressor IVP 5 mg Q6H DAVID Administration Nystatin 5 ml 03/20/18 14:00 04/01/18 21:29 Nystatin Oral Susp PO Not Given QID [facility] Oxycodone HCl 30 mg 03/31/18 21:39 04/01/18 07:38 Oxycodone Immediate Release Tab PO 30 mg Q6H PRN Administration Pain, Mild (1-3) Pantoprazole Sodium 40 mg 03/15/18 07:30 04/01/18 08:11 Protonix Ec Tab PO Not Given ACB [facility] Petrolatum 0 gm 03/31/18 12:36 Desitin Maximum Strength Topical 40% Oint TOP Q4H PRN Rash Polyethylene Glycol 17 gm 03/22/18 10:00 04/01/18 11:50 Miralax PO Not Given BID [facility] Prednisone 15 mg 03/31/18 10:00 04/01/18 11:51 Prednisone Tab PO Not Given DAILY [facility] Tamsulosin HCl 0.4 mg 03/21/18 10:15 04/01/18 11:50 Flomax PO Not Given DAILY DAVID - Patient Studies Lab Studies: Lab Studies 04/02/18 04/02/18 04/02/18 Range/Units 08:00 05:15 05:15 WBC 11.3 H (4.5-11.0) 10^3/uL RBC 2.95 L (3.5-6.1) 10^6/uL Hgb 8.2 L (14.0-18.0) g/dL Hct 25.7 L (42.0-52.0) % MCV 87.1 (80.0-105.0) fl MCH 27.8 (25.0-35.0) pg MCHC 31.9 (31.0-37.0) g/dl RDW 19.7 H (11.5-14.5) % Plt Count 140 (120.0-450.0) 10^3/uL MPV 10.5 (7.0-11.0) fl Gran % 88.1 H (50.0-68.0) % Lymph % (Auto) 6.5 L (22.0-35.0) % [place] % (Auto) 5.4 (1.0-6.0) % Eos % (Auto) 0.0 L (1.5-5.0) % Baso % (Auto) 0.0 (0.0-3.0) % Gran # 9.95 H (1.4-6.5) Lymph # (Auto) 0.7 L (1.2-3.4) [place] # (Auto) 0.6 (0.1-0.6) Eos # (Auto) 0.0 (0.0-0.7) Baso # (Auto) 0.00 (0.0-2.0) K/mm3 Neutrophils % (Manual) (50.0-70.0) % Lymphocytes % (Manual) (22.0-35.0) % Monocytes % (Manual) (1.0-6.0) % Platelet Evaluation (NORMAL) Hypochromasia Target Cells Rouleaux APTT 54.8 H (26.9-38.3) Seconds pCO2 (35-45) mm/Hg pO2 (80-100) mm/Hg HCO3 (21-28) mmol/L ABG pH (7.35-7.45) ABG Total CO2 (22-28) mmol.L ABG O2 Saturation (95-98) % ABG Base Excess (-2.0-3.0) mmol/L ABG Potassium (3.6-5.2) mmol/L Sodium 136 (132-148) mmol/L Chloride 107 (98-107) mmol/L Glucose (75-110) mg/dl Lactate (0.7-2.1) mmol/L Mechanical Rate FiO2 % Tidal Volume PEEP Potassium 4.1 (3.6-5.0) mmol/L Carbon Dioxide 24 (21-33) mmol/L Anion Gap 8 L (10-20) BUN 24 H (7-21) mg/dL Creatinine 0.9 (0.8-1.5) mg/dl Est GFR ( Amer) > 60 Est GFR (Non-Af Amer) > 60 Random Glucose 91 (70-110) mg/dL Calcium 7.6 L (8.4-10.5) mg/dL Phosphorus 2.5 (2.5-4.5) mg/dL Magnesium 1.6 L (1.7-2.2) mg/dL Total Bilirubin 0.9 (0.2-1.3) mg/dL AST 18 (17-59) U/L ALT 38 (7-56) U/L Alkaline Phosphatase 87 (38-126) U/L Lactate Dehydrogenase (333-699) U/L Total Creatine Kinase (35-230) U/L Troponin I 0.06 ng/mL Total Protein 4.1 L (5.8-8.3) g/dL Albumin 1.9 L (3.0-4.8) g/dL Globulin 2.2 gm/dL Albumin/Globulin Ratio 0.9 L (1.1-1.8) Arterial Blood Potassium (3.6-5.2) mmol/L 04/02/18 04/02/18 04/02/18 Range/Units 05:00 00:45 00:45 WBC (4.5-11.0) 10^3/uL RBC (3.5-6.1) 10^6/uL Hgb (14.0-18.0) g/dL Hct (42.0-52.0) % MCV (80.0-105.0) fl MCH (25.0-35.0) pg MCHC (31.0-37.0) g/dl RDW (11.5-14.5) % Plt Count (120.0-450.0) 10^3/uL MPV (7.0-11.0) fl Gran % (50.0-68.0) % Lymph % (Auto) (22.0-35.0) % [place] % (Auto) (1.0-6.0) % Eos % (Auto) (1.5-5.0) % Baso % (Auto) (0.0-3.0) % Gran # (1.4-6.5) Lymph # (Auto) (1.2-3.4) [place] # (Auto) (0.1-0.6) Eos # (Auto) (0.0-0.7) Baso # (Auto) (0.0-2.0) K/mm3 Neutrophils % (Manual) (50.0-70.0) % Lymphocytes % (Manual) (22.0-35.0) % Monocytes % (Manual) (1.0-6.0) % Platelet Evaluation (NORMAL) Hypochromasia Target Cells Rouleaux APTT 46.4 H (26.9-38.3) Seconds pCO2 31 L (35-45) mm/Hg pO2 296.0 H (80-100) mm/Hg HCO3 22.6 (21-28) mmol/L ABG pH 7.47 H (7.35-7.45) ABG Total CO2 23.6 (22-28) mmol.L ABG O2 Saturation 100.3 H (95-98) % ABG Base Excess -0.8 (-2.0-3.0) mmol/L ABG Potassium 3.8 (3.6-5.2) mmol/L Sodium 138.0 (132-148) mmol/L Chloride 111.0 H (98-107) mmol/L Glucose 95 (75-110) mg/dl Lactate 1.0 (0.7-2.1) mmol/L Mechanical Rate FiO2 80.0 % Tidal Volume PEEP Potassium (3.6-5.0) mmol/L Carbon Dioxide (21-33) mmol/L Anion Gap (10-20) BUN (7-21) mg/dL Creatinine (0.8-1.5) mg/dl Est GFR ( Amer) Est GFR (Non-Af Amer) Random Glucose (70-110) mg/dL Calcium (8.4-10.5) mg/dL Phosphorus (2.5-4.5) mg/dL Magnesium (1.7-2.2) mg/dL Total Bilirubin (0.2-1.3) mg/dL AST (17-59) U/L ALT (7-56) U/L Alkaline Phosphatase (38-126) U/L Lactate Dehydrogenase 250 L (333-699) U/L Total Creatine Kinase < 20 L (35-230) U/L Troponin I 0.07 D ng/mL Total Protein (5.8-8.3) g/dL Albumin (3.0-4.8) g/dL Globulin gm/dL Albumin/Globulin Ratio (1.1-1.8) Arterial Blood Potassium 3.8 (3.6-5.2) mmol/L 04/01/18 04/01/18 04/01/18 Range/Units 21:20 19:20 18:22 WBC 9.8 (4.5-11.0) 10^3/uL RBC 3.28 L (3.5-6.1) 10^6/uL Hgb 9.0 L (14.0-18.0) g/dL Hct 28.9 L (42.0-52.0) % MCV 88.1 (80.0-105.0) fl MCH 27.4 (25.0-35.0) pg MCHC 31.1 (31.0-37.0) g/dl RDW 19.8 H (11.5-14.5) % Plt Count 152 (120.0-450.0) 10^3/uL MPV 10.7 (7.0-11.0) fl Gran % 95.4 H (50.0-68.0) % Lymph % (Auto) 1.5 L (22.0-35.0) % [place] % (Auto) 3.1 (1.0-6.0) % Eos % (Auto) 0.0 L (1.5-5.0) % Baso % (Auto) 0.0 (0.0-3.0) % Gran # 9.35 H (1.4-6.5) Lymph # (Auto) 0.2 L (1.2-3.4) [place] # (Auto) 0.3 (0.1-0.6) Eos # (Auto) 0.0 (0.0-0.7) Baso # (Auto) 0.00 (0.0-2.0) K/mm3 Neutrophils % (Manual) 93 H (50.0-70.0) % Lymphocytes % (Manual) 3 L (22.0-35.0) % Monocytes % (Manual) 4 (1.0-6.0) % Platelet Evaluation Normal (NORMAL) Hypochromasia 1+ Target Cells Slight Rouleaux 2+ APTT (26.9-38.3) Seconds pCO2 28 L (35-45) mm/Hg pO2 325.0 H (80-100) mm/Hg HCO3 21.3 (21-28) mmol/L ABG pH 7.49 H (7.35-7.45) ABG Total CO2 22.2 (22-28) mmol.L ABG O2 Saturation 100.5 H (95-98) % ABG Base Excess -0.9 (-2.0-3.0) mmol/L ABG Potassium 4.0 (3.6-5.2) mmol/L Sodium 136.0 135 (132-148) mmol/L Chloride 113.0 H 108 H (98-107) mmol/L Glucose 111 H (75-110) mg/dl Lactate 1.2 (0.7-2.1) mmol/L Mechanical Rate FiO2 80.0 % Tidal Volume PEEP Potassium 4.4 (3.6-5.0) mmol/L Carbon Dioxide 26 (21-33) mmol/L Anion Gap 7 L (10-20) BUN 21 (7-21) mg/dL Creatinine 0.9 (0.8-1.5) mg/dl Est GFR ( Amer) > 60 Est GFR (Non-Af Amer) > 60 Random Glucose 112 H (70-110) mg/dL Calcium 7.5 L (8.4-10.5) mg/dL Phosphorus 3.0 (2.5-4.5) mg/dL Magnesium 1.6 L (1.7-2.2) mg/dL Total Bilirubin (0.2-1.3) mg/dL AST (17-59) U/L ALT (7-56) U/L Alkaline Phosphatase (38-126) U/L Lactate Dehydrogenase (333-699) U/L Total Creatine Kinase (35-230) U/L Troponin I 0.05 ng/mL Total Protein (5.8-8.3) g/dL Albumin (3.0-4.8) g/dL Globulin gm/dL Albumin/Globulin Ratio (1.1-1.8) Arterial Blood Potassium 4.0 (3.6-5.2) mmol/L 04/01/18 Range/Units 17:39 WBC (4.5-11.0) 10^3/uL RBC (3.5-6.1) 10^6/uL Hgb (14.0-18.0) g/dL Hct (42.0-52.0) % MCV (80.0-105.0) fl MCH (25.0-35.0) pg MCHC (31.0-37.0) g/dl RDW (11.5-14.5) % Plt Count (120.0-450.0) 10^3/uL MPV (7.0-11.0) fl Gran % (50.0-68.0) % Lymph % (Auto) (22.0-35.0) % [place] % (Auto) (1.0-6.0) % Eos % (Auto) (1.5-5.0) % Baso % (Auto) (0.0-3.0) % Gran # (1.4-6.5) Lymph # (Auto) (1.2-3.4) [place] # (Auto) (0.1-0.6) Eos # (Auto) (0.0-0.7) Baso # (Auto) (0.0-2.0) K/mm3 Neutrophils % (Manual) (50.0-70.0) % Lymphocytes % (Manual) (22.0-35.0) % Monocytes % (Manual) (1.0-6.0) % Platelet Evaluation (NORMAL) Hypochromasia Target Cells Rouleaux APTT (26.9-38.3) Seconds pCO2 51 H (35-45) mm/Hg pO2 228.0 H (80-100) mm/Hg HCO3 22.9 (21-28) mmol/L ABG pH 7.26 L (7.35-7.45) ABG Total CO2 24.5 (22-28) mmol.L ABG O2 Saturation 100.0 H (95-98) % ABG Base Excess -4.6 L (-2.0-3.0) mmol/L ABG Potassium 4.0 (3.6-5.2) mmol/L Sodium 135.0 (132-148) mmol/L Chloride 108.0 H (98-107) mmol/L Glucose 145 H (75-110) mg/dl Lactate 1.7 (0.7-2.1) mmol/L Mechanical Rate 16 FiO2 80.0 % Tidal Volume 400 PEEP 5 Potassium (3.6-5.0) mmol/L Carbon Dioxide (21-33) mmol/L Anion Gap (10-20) BUN (7-21) mg/dL Creatinine (0.8-1.5) mg/dl Est GFR ( Amer) Est GFR (Non-Af Amer) Random Glucose (70-110) mg/dL Calcium (8.4-10.5) mg/dL Phosphorus (2.5-4.5) mg/dL Magnesium (1.7-2.2) mg/dL Total Bilirubin (0.2-1.3) mg/dL AST (17-59) U/L ALT (7-56) U/L Alkaline Phosphatase (38-126) U/L Lactate Dehydrogenase (333-699) U/L Total Creatine Kinase (35-230) U/L Troponin I ng/mL Total Protein (5.8-8.3) g/dL Albumin (3.0-4.8) g/dL Globulin gm/dL Albumin/Globulin Ratio (1.1-1.8) Arterial Blood Potassium 4.0 (3.6-5.2) mmol/L Laboratory Results - last 24 hr 04/01/18 04/01/18 04/01/18 17:39 18:22 19:20 WBC 9.8 RBC 3.28 L Hgb 9.0 L Hct 28.9 L MCV 88.1 MCH 27.4 MCHC 31.1 RDW 19.8 H Plt Count 152 MPV 10.7 Gran % 95.4 H Lymph % (Auto) 1.5 L [place] % (Auto) 3.1 Eos % (Auto) 0.0 L Baso % (Auto) 0.0 Gran # 9.35 H Lymph # (Auto) 0.2 L [place] # (Auto) 0.3 Eos # (Auto) 0.0 Baso # (Auto) 0.00 Neutrophils % (Manual) 93 H Lymphocytes % (Manual) 3 L Monocytes % (Manual) 4 Platelet Evaluation Normal Hypochromasia 1+ Target Cells Slight Rouleaux 2+ APTT pCO2 51 H pO2 228.0 H HCO3 22.9 ABG pH 7.26 L ABG Total CO2 24.5 ABG O2 Saturation 100.0 H ABG Base Excess -4.6 L ABG Potassium 4.0 Sodium 135.0 135 Chloride 108.0 H 108 H Glucose 145 H Lactate 1.7 Mechanical Rate 16 FiO2 80.0 Tidal Volume 400 PEEP 5 Potassium 4.4 Carbon Dioxide 26 Anion Gap 7 L BUN 21 Creatinine 0.9 Est GFR ( Amer) > 60 Est GFR (Non-Af Amer) > 60 Random Glucose 112 H Calcium 7.5 L Phosphorus 3.0 Magnesium 1.6 L Total Bilirubin AST ALT Alkaline Phosphatase Lactate Dehydrogenase Total Creatine Kinase Troponin I 0.05 Total Protein Albumin Globulin Albumin/Globulin Ratio Arterial Blood Potassium 4.0 04/01/18 04/02/18 04/02/18 21:20 00:45 00:45 WBC RBC Hgb Hct MCV MCH MCHC RDW Plt Count MPV Gran % Lymph % (Auto) [place] % (Auto) Eos % (Auto) Baso % (Auto) Gran # Lymph # (Auto) [place] # (Auto) Eos # (Auto) Baso # (Auto) Neutrophils % (Manual) Lymphocytes % (Manual) Monocytes % (Manual) Platelet Evaluation Hypochromasia Target Cells Rouleaux APTT 46.4 H pCO2 28 L pO2 325.0 H HCO3 21.3 ABG pH 7.49 H ABG Total CO2 22.2 ABG O2 Saturation 100.5 H ABG Base Excess -0.9 ABG Potassium 4.0 Sodium 136.0 Chloride 113.0 H Glucose 111 H Lactate 1.2 Mechanical Rate FiO2 80.0 Tidal Volume PEEP Potassium Carbon Dioxide Anion Gap BUN Creatinine Est GFR ( Amer) Est GFR (Non-Af Amer) Random Glucose Calcium Phosphorus Magnesium Total Bilirubin AST ALT Alkaline Phosphatase Lactate Dehydrogenase 250 L Total Creatine Kinase < 20 L Troponin I 0.07 D Total Protein Albumin Globulin Albumin/Globulin Ratio Arterial Blood Potassium 4.0 04/02/18 04/02/18 04/02/18 05:00 05:15 05:15 WBC 11.3 H RBC 2.95 L Hgb 8.2 L Hct 25.7 L MCV 87.1 MCH 27.8 MCHC 31.9 RDW 19.7 H Plt Count 140 MPV 10.5 Gran % 88.1 H Lymph % (Auto) 6.5 L [place] % (Auto) 5.4 Eos % (Auto) 0.0 L Baso % (Auto) 0.0 Gran # 9.95 H Lymph # (Auto) 0.7 L [place] # (Auto) 0.6 Eos # (Auto) 0.0 Baso # (Auto) 0.00 Neutrophils % (Manual) Lymphocytes % (Manual) Monocytes % (Manual) Platelet Evaluation Hypochromasia Target Cells Rouleaux APTT pCO2 31 L pO2 296.0 H HCO3 22.6 ABG pH 7.47 H ABG Total CO2 23.6 ABG O2 Saturation 100.3 H ABG Base Excess -0.8 ABG Potassium 3.8 Sodium 138.0 136 Chloride 111.0 H 107 Glucose 95 Lactate 1.0 Mechanical Rate FiO2 80.0 Tidal Volume PEEP Potassium 4.1 Carbon Dioxide 24 Anion Gap 8 L BUN 24 H Creatinine 0.9 Est GFR ( Amer) > 60 Est GFR (Non-Af Amer) > 60 Random Glucose 91 Calcium 7.6 L Phosphorus 2.5 Magnesium 1.6 L Total Bilirubin 0.9 AST 18 ALT 38 Alkaline Phosphatase 87 Lactate Dehydrogenase Total Creatine Kinase Troponin I 0.06 Total Protein 4.1 L Albumin 1.9 L Globulin 2.2 Albumin/Globulin Ratio 0.9 L Arterial Blood Potassium 3.8 04/02/18 08:00 WBC RBC Hgb Hct MCV MCH MCHC RDW Plt Count MPV Gran % Lymph % (Auto) [place] % (Auto) Eos % (Auto) Baso % (Auto) Gran # Lymph # (Auto) [place] # (Auto) Eos # (Auto) Baso # (Auto) Neutrophils % (Manual) Lymphocytes % (Manual) Monocytes % (Manual) Platelet Evaluation Hypochromasia Target Cells Rouleaux APTT 54.8 H pCO2 pO2 HCO3 ABG pH ABG Total CO2 ABG O2 Saturation ABG Base Excess ABG Potassium Sodium Chloride Glucose Lactate Mechanical Rate FiO2 Tidal Volume PEEP Potassium Carbon Dioxide Anion Gap BUN Creatinine Est GFR ( Amer) Est GFR (Non-Af Amer) Random Glucose Calcium Phosphorus Magnesium Total Bilirubin AST ALT Alkaline Phosphatase Lactate Dehydrogenase Total Creatine Kinase Troponin I Total Protein Albumin Globulin Albumin/Globulin Ratio Arterial Blood Potassium Radiology Impressions: Radiology Impressions Chest X-Ray 04/01/18 16:11 IMPRESSION: Interval VATS with placement of 2 large bore right-sided chest tubes. Large right pneumothorax. Ensure chest tubes are dissection. Chest X-Ray 04/01/18 18:35 IMPRESSION: Interval insertion of an NG tube tip near GE gastric cardia and detailed as above. Position accordingly. Endotracheal tube and central lines and 2 right chest tubes are all similar in appearance and detailed above. The large right pneumothorax with right lung collapse is similar in its large size. No mediastinal shift to suggest tension pneumothorax seen. Clinical assessment regarding right chest tube positioning and functioning is reiterated. Chest X-Ray 04/02/18 06:00 IMPRESSION: There are 2 chest tube seen on the right side. There is no change in the pattern of pneumothorax. 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 S/p extubation on 04/02/18. Plan: Neuro: -maintain normothermia -AAO x3, moving extremities spontaneously past midline -morphine and oxycodone prn for pain Cardio: -maintain MAP>65 -will monitor vitals including HR and BP closely -EKG on 04/01 showed inferior wall ischemic changes postoperatively, initially on heparin drip -heparin drip stopped today, trops 0.06, 0.07 and 0.05. -off of levophed drip today -cardiology on consult, Dr. Montoya -echo on 03/12 showed EF of 53%, moderate to severe TR, pulmondary HTN with RVSP of 61 Lungs: Recurrent right sided pleural effusion -s/p VATS with chest tube placement on 04/01/18 -chest tube drained 400cc today of red fluid -SaO2 >90% -supplementary O2 PRN -continue actelycysteine, pulmicort, xopenex and prednisone daily 15mg -CXR today shows 2 chest tubes on the right side, there is no change in the pattern of pneumothorax Renal: -maintain euvolemia -avoid nephrotoxic agents, hypochloremia -replace electrolytes as needed -BUN/Cr is 24/0.9 today -ABG today reads pH/pO2/pCO2/bicarb of 7.47/296/31/24 Heme: -Hg today is 8.2 today, will monitor -DVT ppx with lovenox Endo: -maintain euglycemia, will target glucose 140-180 ID: -WBC is 11.3 from 9.8 afebrile -blood culture negative for 5 days on 03/11/18 GI: -swallow eval, regular diet if passed -GI prophylaxis with protonix Patient seen and case discussed with attending, Dr. Ambrosio <Flakito Ambrosio - Last Filed: 04/02/18 12:35> CCU Objective - Vital Signs / Intake & Output Vital Signs (Last 4 hours): Vital Signs Pulse 04/02/18 08:47 117 H Intake and Output (Last 8hrs): Intake & Output 04/01/18 04/02/18 04/02/18 22:59 06:59 14:59 Intake Total 602 Output Total 600 Balance 2 Intake: IV 602 left chest wall lucero 432 cath Output: Chest Tube Drainage 400 Right Anterior Chest 400 Urine 200 Urethral ([place]) 200 - Medications Active Medications: Active Medications Generic Name Dose Route Start Last Admin Trade Name Freq PRN Reason Stop Dose Admin Acetylcysteine 4 ml 03/13/18 20:00 04/02/18 07:24 Acetylcysteine 20% IH 4 ml [id number] DAVID Administration Aspirin 81 mg 04/01/18 17:45 04/02/18 11:37 Ecotrin PO Not Given DAILY DAVID Atorvastatin Calcium 80 mg 04/01/18 17:45 04/01/18 19:43 Lipitor PO 80 mg DIN DAVID Administration Benzonatate 100 mg 03/14/18 14:00 04/02/18 11:39 Tessalon Perles PO Not Given TID DAVID Budesonide 0.5 mg 03/13/18 20:00 04/02/18 07:24 Pulmicort Respules IH 0.5 mg [id number] DAVID Administration Carbamide Peroxide 0 ml 03/29/18 10:45 04/01/18 11:47 Debrox Ear Drops AU 5 drop BID DAVID Administration Docusate Sodium 100 mg 03/28/18 13:00 04/02/18 11:28 Colace PO Not Given DAILY DAVID Enoxaparin Sodium 40 mg 03/14/18 10:00 03/31/18 11:38 Lovenox SC 40 mg DAILY DAVID Administration Protocol Fluoxetine HCl 10 mg 03/28/18 10:00 04/02/18 11:39 Prozac PO Not Given DAILY DAVID Hydromorphone HCl 0.5 mg 04/01/18 15:21 Dilaudid IVP Q15M PRN Pain, Moderate/Severe (4-10) Hydromorphone HCl 1 mg 04/02/18 09:35 04/02/18 09:50 Dilaudid IVP 1 mg Q4H PRN Administration Pain, severe (8-10) Dextrose/Sodium Chloride 1,000 mls @ 50 mls/hr 04/01/18 11:30 04/01/18 11:43 Dextrose 5%/0.45% Ns 1000 Ml IV 50 mls/hr .Q20H DAVID Administration NOREPINEPHRINE BIT/0.9 % NACL 4 mg in 250 mls @ 15 mls/hr 04/01/18 17:48 04/01/18 19:16 Levophed 4 Mg/ 250 Ml Ns Premixed IV 4 mcg/min .[id number] PRN 15 mls/hr TITRATE PER MD ORDER Administration Protocol 4 MCG/MIN Propofol 1,000 mg in 100 mls @ 7.348 mls/hr 04/02/18 06:11 04/02/18 01:00 Diprivan IV 15 mcg/kg/min .[id number] PRN 7.348 mls/hr TITRATE PER MD ORDER Administration Protocol 15 MCG/KG/MIN Levalbuterol HCl 0.63 mg 03/13/18 14:00 04/02/18 07:24 Xopenex IH 0.63 mg TIDRESP DAVID Administration Lorazepam 0.5 mg 03/30/18 12:07 03/31/18 16:36 Ativan PO 0.5 mg TID PRN Administration Anxiety Protocol Metoprolol Tartrate 5 mg 04/01/18 17:30 04/01/18 18:15 Lopressor IVP 5 mg Q6H DAVID Administration Nystatin 5 ml 03/20/18 14:00 04/02/18 11:38 Nystatin Oral Susp PO 5 ml QID DAVID Administration Oxycodone HCl 30 mg 03/31/18 21:39 04/01/18 07:38 Oxycodone Immediate Release Tab PO 30 mg Q6H PRN Administration Pain, Mild (1-3) Pantoprazole Sodium 40 mg 03/15/18 07:30 04/02/18 11:39 Protonix Ec Tab PO Not Given ACB [facility] Petrolatum 0 gm 03/31/18 12:36 04/02/18 11:31 Desitin Maximum Strength Topical 40% Oint TOP 40 tub Q4H PRN Administration Rash Polyethylene Glycol 17 gm 03/22/18 10:00 04/02/18 11:38 Miralax PO Not Given BID [facility] Prednisone 15 mg 03/31/18 10:00 04/02/18 11:38 Prednisone Tab PO Not Given DAILY [facility] Tamsulosin HCl 0.4 mg 03/21/18 10:15 04/02/18 11:37 Flomax PO Not Given DAILY [facility] - Patient Studies Lab Studies: Lab Studies 04/02/18 04/02/18 04/02/18 Range/Units 08:00 05:15 05:15 WBC 11.3 H (4.5-11.0) 10^3/uL RBC 2.95 L (3.5-6.1) 10^6/uL Hgb 8.2 L (14.0-18.0) g/dL Hct 25.7 L (42.0-52.0) % MCV 87.1 (80.0-105.0) fl MCH 27.8 (25.0-35.0) pg MCHC 31.9 (31.0-37.0) g/dl RDW 19.7 H (11.5-14.5) % Plt Count 140 (120.0-450.0) 10^3/uL MPV 10.5 (7.0-11.0) fl Gran % 88.1 H (50.0-68.0) % Lymph % (Auto) 6.5 L (22.0-35.0) % [place] % (Auto) 5.4 (1.0-6.0) % Eos % (Auto) 0.0 L (1.5-5.0) % Baso % (Auto) 0.0 (0.0-3.0) % Gran # 9.95 H (1.4-6.5) Lymph # (Auto) 0.7 L (1.2-3.4) [place] # (Auto) 0.6 (0.1-0.6) Eos # (Auto) 0.0 (0.0-0.7) Baso # (Auto) 0.00 (0.0-2.0) K/mm3 Neutrophils % (Manual) (50.0-70.0) % Lymphocytes % (Manual) (22.0-35.0) % Monocytes % (Manual) (1.0-6.0) % Platelet Evaluation (NORMAL) Hypochromasia Target Cells Rouleaux APTT 54.8 H (26.9-38.3) Seconds pCO2 (35-45) mm/Hg pO2 (80-100) mm/Hg HCO3 (21-28) mmol/L ABG pH (7.35-7.45) ABG Total CO2 (22-28) mmol.L ABG O2 Saturation (95-98) % ABG Base Excess (-2.0-3.0) mmol/L ABG Potassium (3.6-5.2) mmol/L Sodium 136 (132-148) mmol/L Chloride 107 (98-107) mmol/L Glucose (75-110) mg/dl Lactate (0.7-2.1) mmol/L Mechanical Rate FiO2 % Tidal Volume PEEP Potassium 4.1 (3.6-5.0) mmol/L Carbon Dioxide 24 (21-33) mmol/L Anion Gap 8 L (10-20) BUN 24 H (7-21) mg/dL Creatinine 0.9 (0.8-1.5) mg/dl Est GFR ( Amer) > 60 Est GFR (Non-Af Amer) > 60 Random Glucose 91 (70-110) mg/dL Calcium 7.6 L (8.4-10.5) mg/dL Phosphorus 2.5 (2.5-4.5) mg/dL Magnesium 1.6 L (1.7-2.2) mg/dL Total Bilirubin 0.9 (0.2-1.3) mg/dL AST 18 (17-59) U/L ALT 38 (7-56) U/L Alkaline Phosphatase 87 (38-126) U/L Lactate Dehydrogenase (333-699) U/L Total Creatine Kinase (35-230) U/L Troponin I 0.06 ng/mL Total Protein 4.1 L (5.8-8.3) g/dL Albumin 1.9 L (3.0-4.8) g/dL Globulin 2.2 gm/dL Albumin/Globulin Ratio 0.9 L (1.1-1.8) Arterial Blood Potassium (3.6-5.2) mmol/L 04/02/18 04/02/18 04/02/18 Range/Units 05:00 00:45 00:45 WBC (4.5-11.0) 10^3/uL RBC (3.5-6.1) 10^6/uL Hgb (14.0-18.0) g/dL Hct (42.0-52.0) % MCV (80.0-105.0) fl MCH (25.0-35.0) pg MCHC (31.0-37.0) g/dl RDW (11.5-14.5) % Plt Count (120.0-450.0) 10^3/uL MPV (7.0-11.0) fl Gran % (50.0-68.0) % Lymph % (Auto) (22.0-35.0) % [place] % (Auto) (1.0-6.0) % Eos % (Auto) (1.5-5.0) % Baso % (Auto) (0.0-3.0) % Gran # (1.4-6.5) Lymph # (Auto) (1.2-3.4) [place] # (Auto) (0.1-0.6) Eos # (Auto) (0.0-0.7) Baso # (Auto) (0.0-2.0) K/mm3 Neutrophils % (Manual) (50.0-70.0) % Lymphocytes % (Manual) (22.0-35.0) % Monocytes % (Manual) (1.0-6.0) % Platelet Evaluation (NORMAL) Hypochromasia Target Cells Rouleaux APTT 46.4 H (26.9-38.3) Seconds pCO2 31 L (35-45) mm/Hg pO2 296.0 H (80-100) mm/Hg HCO3 22.6 (21-28) mmol/L ABG pH 7.47 H (7.35-7.45) ABG Total CO2 23.6 (22-28) mmol.L ABG O2 Saturation 100.3 H (95-98) % ABG Base Excess -0.8 (-2.0-3.0) mmol/L ABG Potassium 3.8 (3.6-5.2) mmol/L Sodium 138.0 (132-148) mmol/L Chloride 111.0 H (98-107) mmol/L Glucose 95 (75-110) mg/dl Lactate 1.0 (0.7-2.1) mmol/L Mechanical Rate FiO2 80.0 % Tidal Volume PEEP Potassium (3.6-5.0) mmol/L Carbon Dioxide (21-33) mmol/L Anion Gap (10-20) BUN (7-21) mg/dL Creatinine (0.8-1.5) mg/dl Est GFR ( Amer) Est GFR (Non-Af Amer) Random Glucose (70-110) mg/dL Calcium (8.4-10.5) mg/dL Phosphorus (2.5-4.5) mg/dL Magnesium (1.7-2.2) mg/dL Total Bilirubin (0.2-1.3) mg/dL AST (17-59) U/L ALT (7-56) U/L Alkaline Phosphatase (38-126) U/L Lactate Dehydrogenase 250 L (333-699) U/L Total Creatine Kinase < 20 L (35-230) U/L Troponin I 0.07 D ng/mL Total Protein (5.8-8.3) g/dL Albumin (3.0-4.8) g/dL Globulin gm/dL Albumin/Globulin Ratio (1.1-1.8) Arterial Blood Potassium 3.8 (3.6-5.2) mmol/L 04/01/18 04/01/18 04/01/18 Range/Units 21:20 19:20 18:22 WBC 9.8 (4.5-11.0) 10^3/uL RBC 3.28 L (3.5-6.1) 10^6/uL Hgb 9.0 L (14.0-18.0) g/dL Hct 28.9 L (42.0-52.0) % MCV 88.1 (80.0-105.0) fl MCH 27.4 (25.0-35.0) pg MCHC 31.1 (31.0-37.0) g/dl RDW 19.8 H (11.5-14.5) % Plt Count 152 (120.0-450.0) 10^3/uL MPV 10.7 (7.0-11.0) fl Gran % 95.4 H (50.0-68.0) % Lymph % (Auto) 1.5 L (22.0-35.0) % [place] % (Auto) 3.1 (1.0-6.0) % Eos % (Auto) 0.0 L (1.5-5.0) % Baso % (Auto) 0.0 (0.0-3.0) % Gran # 9.35 H (1.4-6.5) Lymph # (Auto) 0.2 L (1.2-3.4) [place] # (Auto) 0.3 (0.1-0.6) Eos # (Auto) 0.0 (0.0-0.7) Baso # (Auto) 0.00 (0.0-2.0) K/mm3 Neutrophils % (Manual) 93 H (50.0-70.0) % Lymphocytes % (Manual) 3 L (22.0-35.0) % Monocytes % (Manual) 4 (1.0-6.0) % Platelet Evaluation Normal (NORMAL) Hypochromasia 1+ Target Cells Slight Rouleaux 2+ APTT (26.9-38.3) Seconds pCO2 28 L (35-45) mm/Hg pO2 325.0 H (80-100) mm/Hg HCO3 21.3 (21-28) mmol/L ABG pH 7.49 H (7.35-7.45) ABG Total CO2 22.2 (22-28) mmol.L ABG O2 Saturation 100.5 H (95-98) % ABG Base Excess -0.9 (-2.0-3.0) mmol/L ABG Potassium 4.0 (3.6-5.2) mmol/L Sodium 136.0 135 (132-148) mmol/L Chloride 113.0 H 108 H (98-107) mmol/L Glucose 111 H (75-110) mg/dl Lactate 1.2 (0.7-2.1) mmol/L Mechanical Rate FiO2 80.0 % Tidal Volume PEEP Potassium 4.4 (3.6-5.0) mmol/L Carbon Dioxide 26 (21-33) mmol/L Anion Gap 7 L (10-20) BUN 21 (7-21) mg/dL Creatinine 0.9 (0.8-1.5) mg/dl Est GFR ( Amer) > 60 Est GFR (Non-Af Amer) > 60 Random Glucose 112 H (70-110) mg/dL Calcium 7.5 L (8.4-10.5) mg/dL Phosphorus 3.0 (2.5-4.5) mg/dL Magnesium 1.6 L (1.7-2.2) mg/dL Total Bilirubin (0.2-1.3) mg/dL AST (17-59) U/L ALT (7-56) U/L Alkaline Phosphatase (38-126) U/L Lactate Dehydrogenase (333-699) U/L Total Creatine Kinase (35-230) U/L Troponin I 0.05 ng/mL Total Protein (5.8-8.3) g/dL Albumin (3.0-4.8) g/dL Globulin gm/dL Albumin/Globulin Ratio (1.1-1.8) Arterial Blood Potassium 4.0 (3.6-5.2) mmol/L 04/01/18 Range/Units 17:39 WBC (4.5-11.0) 10^3/uL RBC (3.5-6.1) 10^6/uL Hgb (14.0-18.0) g/dL Hct (42.0-52.0) % MCV (80.0-105.0) fl MCH (25.0-35.0) pg MCHC (31.0-37.0) g/dl RDW (11.5-14.5) % Plt Count (120.0-450.0) 10^3/uL MPV (7.0-11.0) fl Gran % (50.0-68.0) % Lymph % (Auto) (22.0-35.0) % [place] % (Auto) (1.0-6.0) % Eos % (Auto) (1.5-5.0) % Baso % (Auto) (0.0-3.0) % Gran # (1.4-6.5) Lymph # (Auto) (1.2-3.4) [place] # (Auto) (0.1-0.6) Eos # (Auto) (0.0-0.7) Baso # (Auto) (0.0-2.0) K/mm3 Neutrophils % (Manual) (50.0-70.0) % Lymphocytes % (Manual) (22.0-35.0) % Monocytes % (Manual) (1.0-6.0) % Platelet Evaluation (NORMAL) Hypochromasia Target Cells Rouleaux APTT (26.9-38.3) Seconds pCO2 51 H (35-45) mm/Hg pO2 228.0 H (80-100) mm/Hg HCO3 22.9 (21-28) mmol/L ABG pH 7.26 L (7.35-7.45) ABG Total CO2 24.5 (22-28) mmol.L ABG O2 Saturation 100.0 H (95-98) % ABG Base Excess -4.6 L (-2.0-3.0) mmol/L ABG Potassium 4.0 (3.6-5.2) mmol/L Sodium 135.0 (132-148) mmol/L Chloride 108.0 H (98-107) mmol/L Glucose 145 H (75-110) mg/dl Lactate 1.7 (0.7-2.1) mmol/L Mechanical Rate 16 FiO2 80.0 % Tidal Volume 400 PEEP 5 Potassium (3.6-5.0) mmol/L Carbon Dioxide (21-33) mmol/L Anion Gap (10-20) BUN (7-21) mg/dL Creatinine (0.8-1.5) mg/dl Est GFR ( Amer) Est GFR (Non-Af Amer) Random Glucose (70-110) mg/dL Calcium (8.4-10.5) mg/dL Phosphorus (2.5-4.5) mg/dL Magnesium (1.7-2.2) mg/dL Total Bilirubin (0.2-1.3) mg/dL AST (17-59) U/L ALT (7-56) U/L Alkaline Phosphatase (38-126) U/L Lactate Dehydrogenase (333-699) U/L Total Creatine Kinase (35-230) U/L Troponin I ng/mL Total Protein (5.8-8.3) g/dL Albumin (3.0-4.8) g/dL Globulin gm/dL Albumin/Globulin Ratio (1.1-1.8) Arterial Blood Potassium 4.0 (3.6-5.2) mmol/L Laboratory Results - last 24 hr 04/01/18 04/01/18 04/01/18 17:39 18:22 19:20 WBC 9.8 RBC 3.28 L Hgb 9.0 L Hct 28.9 L MCV 88.1 MCH 27.4 MCHC 31.1 RDW 19.8 H Plt Count 152 MPV 10.7 Gran % 95.4 H Lymph % (Auto) 1.5 L [place] % (Auto) 3.1 Eos % (Auto) 0.0 L Baso % (Auto) 0.0 Gran # 9.35 H Lymph # (Auto) 0.2 L [place] # (Auto) 0.3 Eos # (Auto) 0.0 Baso # (Auto) 0.00 Neutrophils % (Manual) 93 H Lymphocytes % (Manual) 3 L Monocytes % (Manual) 4 Platelet Evaluation Normal Hypochromasia 1+ Target Cells Slight Rouleaux 2+ APTT pCO2 51 H pO2 228.0 H HCO3 22.9 ABG pH 7.26 L ABG Total CO2 24.5 ABG O2 Saturation 100.0 H ABG Base Excess -4.6 L ABG Potassium 4.0 Sodium 135.0 135 Chloride 108.0 H 108 H Glucose 145 H Lactate 1.7 Mechanical Rate 16 FiO2 80.0 Tidal Volume 400 PEEP 5 Potassium 4.4 Carbon Dioxide 26 Anion Gap 7 L BUN 21 Creatinine 0.9 Est GFR ( Amer) > 60 Est GFR (Non-Af Amer) > 60 Random Glucose 112 H Calcium 7.5 L Phosphorus 3.0 Magnesium 1.6 L Total Bilirubin AST ALT Alkaline Phosphatase Lactate Dehydrogenase Total Creatine Kinase Troponin I 0.05 Total Protein Albumin Globulin Albumin/Globulin Ratio Arterial Blood Potassium 4.0 04/01/18 04/02/18 04/02/18 21:20 00:45 00:45 WBC RBC Hgb Hct MCV MCH MCHC RDW Plt Count MPV Gran % Lymph % (Auto) [place] % (Auto) Eos % (Auto) Baso % (Auto) Gran # Lymph # (Auto) [place] # (Auto) Eos # (Auto) Baso # (Auto) Neutrophils % (Manual) Lymphocytes % (Manual) Monocytes % (Manual) Platelet Evaluation Hypochromasia Target Cells Rouleaux APTT 46.4 H pCO2 28 L pO2 325.0 H HCO3 21.3 ABG pH 7.49 H ABG Total CO2 22.2 ABG O2 Saturation 100.5 H ABG Base Excess -0.9 ABG Potassium 4.0 Sodium 136.0 Chloride 113.0 H Glucose 111 H Lactate 1.2 Mechanical Rate FiO2 80.0 Tidal Volume PEEP Potassium Carbon Dioxide Anion Gap BUN Creatinine Est GFR ( Amer) Est GFR (Non-Af Amer) Random Glucose Calcium Phosphorus Magnesium Total Bilirubin AST ALT Alkaline Phosphatase Lactate Dehydrogenase 250 L Total Creatine Kinase < 20 L Troponin I 0.07 D Total Protein Albumin Globulin Albumin/Globulin Ratio Arterial Blood Potassium 4.0 04/02/18 04/02/18 04/02/18 05:00 05:15 05:15 WBC 11.3 H RBC 2.95 L Hgb 8.2 L Hct 25.7 L MCV 87.1 MCH 27.8 MCHC 31.9 RDW 19.7 H Plt Count 140 MPV 10.5 Gran % 88.1 H Lymph % (Auto) 6.5 L [place] % (Auto) 5.4 Eos % (Auto) 0.0 L Baso % (Auto) 0.0 Gran # 9.95 H Lymph # (Auto) 0.7 L [place] # (Auto) 0.6 Eos # (Auto) 0.0 Baso # (Auto) 0.00 Neutrophils % (Manual) Lymphocytes % (Manual) Monocytes % (Manual) Platelet Evaluation Hypochromasia Target Cells Rouleaux APTT pCO2 31 L pO2 296.0 H HCO3 22.6 ABG pH 7.47 H ABG Total CO2 23.6 ABG O2 Saturation 100.3 H ABG Base Excess -0.8 ABG Potassium 3.8 Sodium 138.0 136 Chloride 111.0 H 107 Glucose 95 Lactate 1.0 Mechanical Rate FiO2 80.0 Tidal Volume PEEP Potassium 4.1 Carbon Dioxide 24 Anion Gap 8 L BUN 24 H Creatinine 0.9 Est GFR ( Amer) > 60 Est GFR (Non-Af Amer) > 60 Random Glucose 91 Calcium 7.6 L Phosphorus 2.5 Magnesium 1.6 L Total Bilirubin 0.9 AST 18 ALT 38 Alkaline Phosphatase 87 Lactate Dehydrogenase Total Creatine Kinase Troponin I 0.06 Total Protein 4.1 L Albumin 1.9 L Globulin 2.2 Albumin/Globulin Ratio 0.9 L Arterial Blood Potassium 3.8 04/02/18 08:00 WBC RBC Hgb Hct MCV MCH MCHC RDW Plt Count MPV Gran % Lymph % (Auto) [place] % (Auto) Eos % (Auto) Baso % (Auto) Gran # Lymph # (Auto) [place] # (Auto) Eos # (Auto) Baso # (Auto) Neutrophils % (Manual) Lymphocytes % (Manual) Monocytes % (Manual) Platelet Evaluation Hypochromasia Target Cells Rouleaux APTT 54.8 H pCO2 pO2 HCO3 ABG pH ABG Total CO2 ABG O2 Saturation ABG Base Excess ABG Potassium Sodium Chloride Glucose Lactate Mechanical Rate FiO2 Tidal Volume PEEP Potassium Carbon Dioxide Anion Gap BUN Creatinine Est GFR ( Amer) Est GFR (Non-Af Amer) Random Glucose Calcium Phosphorus Magnesium Total Bilirubin AST ALT Alkaline Phosphatase Lactate Dehydrogenase Total Creatine Kinase Troponin I Total Protein Albumin Globulin Albumin/Globulin Ratio Arterial Blood Potassium Radiology Impressions: Radiology Impressions Chest X-Ray 04/01/18 16:11 IMPRESSION: Interval VATS with placement of 2 large bore right-sided chest tubes. Large right pneumothorax. Ensure chest tubes are dissection. Chest X-Ray 04/01/18 18:35 IMPRESSION: Interval insertion of an NG tube tip near GE gastric cardia and detailed as above. Position accordingly. Endotracheal tube and central lines and 2 right chest tubes are all similar in appearance and detailed above. The large right pneumothorax with right lung collapse is similar in its large size. No mediastinal shift to suggest tension pneumothorax seen. Clinical assessment regarding right chest tube positioning and functioning is reiterated. Chest X-Ray 04/02/18 06:00 IMPRESSION: There are 2 chest tube seen on the right side. There is no change in the pattern of pneumothorax. EKG/Cardiology Studies: Cardiology / EKG Studies 04/01/18 16:34 EKG [ELECTROCARDIOGRAM] Stat Comment: Reason For Exam: post op thoracic surgery 04/02/18 07:29 EKG [ELECTROCARDIOGRAM] Stat Comment: Reason For Exam: [facility] Critical Care Progress Note - Nutrition Nutrition: Nutrition Category Date Time Status Regular Diet [DIET] Diets 04/01/18 Lunch Ordered Attending/Attestation - Attestation I have personally seen and examined this patient.: Yes I have fully participated in the care of the patient.: Yes I have reviewed all pertinent clinical information: Yes Notes (Text): 04/02/18 12:[address] ambrosio note
--- NOTE | 2018-04-02 11:20 | PN ---
DATE: 04/02/2018 SUBJECTIVE: The patient seen and examined at bedside. Sedation is off; however, he still remains on fentanyl for pain control after right-sided VATS. Norepinephrine is down to 1 from 4 mcg per minute. His blood pressure remains 135/61, as per A-line. The patient is on fentanyl 75 mcg per hour. He is also on heparin drip. The patient is on pressor support 5/5 with FiO2 of 50%. He is doing quite well on that. His rapid shallow breathing index is 30 to 32. PHYSICAL EXAMINATION: VITAL SIGNS: As follows: Heart rate 117 (the patient is on metoprolol 5 mg IV every 6 hours), oxygen saturation 100%, respiratory rate 18, end-tidal CO2 on the monitor 28. ENT: Head and neck atraumatic. The patient is intubated. LUNGS: Clear to auscultation bilaterally. Chest tube present in the right thorax. There is still bubbling and tidal variations suggesting chest tube is in the pleural space. There was 400 mL of serosanguineous output from the right chest. HEART: Regular rate and rhythm. S1, S2 distant. ABDOMEN: Soft, nontender, nondistended. MUSCULOSKELETAL: No C/C/E. NEUROLOGIC: The patient moves all extremities spontaneously. SKIN: Moist. PSYCHIATRIC: The patient is alert, awake, following commands, very comfortable, nonverbally communicating, writing on the paper. LABORATORY DATA: WBC 11.3, hemoglobin 8.2, platelet count 140. Sodium 136, potassium 4.1, chloride 107, carbon dioxide 24, BUN 24, creatinine 0.9, glucose 91. Troponin x3 negative. ABG is 7.47/31/296 (FiO2 went down from 80% to 50%). PTT 46.4. MEDICATIONS: Mucomyst inhaled, aspirin, Lipitor, budesonide inhaled, Colace, fentanyl drip, Prozac, heparin drip diluted p.r.n., metoprolol 5 mg IV every 6 hours, morphine p.r.n., nystatin, norepinephrine, Protonix, prednisone 50 mg daily, propofol, Flomax. Chest x-ray showed presence of the two chest tubes and pneumothorax in the right side. ASSESSMENT AND PLAN: This is a 67-year-old gentleman with metastatic lung carcinoma who presented to intensive care unit after right-sided video-assisted thoracoscopic surgery in attempt to re-expand right lung (trapped). That attempt was unsuccessful and PleurX catheter was placed. The patient developed postoperative respiratory failure with electrocardiogram suggesting ST elevation in the inferior leads. However, his three troponins were negative. I am repeating electrocardiogram to follow up on that. Cardiology service will be commenting on the findings soon. The patient does not appear to have chest pain. The patient is ready to be extubated and he will be extubated to bilevel positive airway pressure. We will continue with pain control, out of bed to chair, incentive spirometry, chest physical therapy, pulmonary toilet, conservative fluid, and oxygen management. Deep vein thrombosis and gastrointestinal prophylaxis. Head of bed elevated more than 35 degrees. ADDENDUM: EKG shows resolution of the ST elevation in the inferior leads. ccm time 40 min Flakito Ambrosio MD [email or web address]
[2018-04-02] MEDS: POLYETHYLENE GLYCOL 3350 17 GM/Dose PACKET PO SCH ×2 (11:38→20:01)
[2018-04-02] MEDS: Nystatin 100,000 Units/ml Oral Susp 5 ml UD PO SCH ×4 (11:38→21:05)
[2018-04-02] MEDS: Pantoprazole 40 mg EC Tab PO SCH (11:39)
--- NOTE | 2018-04-02 11:54 | CARD ---
APPROVED REPORT Date of service: 04/02/2018 EKG Measurement Heart [id number] [place] [id number] [id number] <Conclusion> Sinus tachycardia with premature atrial complexes Nonspecific T wave abnormality Abnormal ECG
--- NOTE | 2018-04-02 12:19 | CP.PCM.APN ---
Subjective - Date & Time of Evaluation Date of Evaluation: 04/02/18 Time of Evaluation: 11:45 - Subjective Subjective: pt seen and examined at bedside in CCU after VATS procedure yesterday unsuccessful pleurex catheter placement. daughter at bedside pt with chest tube in place draining serosanginous drainage pt offers no complaints at this time Review of Systems - Review of Systems All systems: reviewed and no additional remarkable complaints except Objective - Vital Signs/Intake and Output Vital Signs (last 24 hours): Temp Pulse Resp BP Pulse Ox 97.4 F L 117 H 30 H 110/60 100 04/01/18 16:50 04/02/18 08:47 04/02/18 07:25 04/01/18 18:15 04/02/18 07:25 Intake and Output: 04/02/18 04/02/18 06:59 18:59 Intake Total 602 Output Total 600 Balance 2 - Medications Medications: Current Medications Acetylcysteine (Acetylcysteine 20%) 4 ml [facility] BID[facility]P [facility] Last Admin: 04/02/18 07:24 Dose: 4 ml Aspirin (Ecotrin) 81 mg PO DAILY [facility] Last Admin: 04/02/18 11:37 Dose: Not Given Atorvastatin Calcium (Lipitor) 80 mg PO DIN [facility] Last Admin: 04/01/18 19:43 Dose: 80 mg Benzonatate (Tessalon Perles) 100 mg PO TID [facility] Last Admin: 04/02/18 11:39 Dose: Not Given Budesonide (Pulmicort Respules) 0.5 mg [facility] [id number] [facility] Last Admin: 04/02/18 07:24 Dose: 0.5 mg Carbamide Peroxide (Debrox Ear Drops) 0 ml AU BID [facility] Last Admin: 04/01/18 11:47 Dose: 5 drop Docusate Sodium (Colace) 100 mg PO DAILY [facility] Last Admin: 04/02/18 11:28 Dose: Not Given Enoxaparin Sodium (Lovenox) 40 mg SC DAILY [facility]; Protocol Last Admin: 03/31/18 11:38 Dose: 40 mg Fluoxetine HCl (Prozac) 10 mg PO DAILY [facility] Last Admin: 04/02/18 11:39 Dose: Not Given Hydromorphone HCl (Dilaudid) 0.5 mg IVP Q15M PRN PRN Reason: Pain, Moderate/Severe (4-10) Hydromorphone HCl (Dilaudid) 1 mg IVP Q4H PRN PRN Reason: Pain, severe (8-10) Last Admin: 04/02/18 09:50 Dose: 1 mg Dextrose/Sodium Chloride (Dextrose 5%/0.45% Ns 1000 Ml) 1,000 mls @ 50 mls/hr IV .Q20H [facility] Last Admin: 04/01/18 11:43 Dose: 50 mls/hr NOREPINEPHRINE BIT/0.9 % NACL (Levophed 4 Mg/ 250 Ml Ns Premixed) 4 mg in 250 mls @ 15 mls/hr IV .[id number] PRN; Protocol PRN Reason: TITRATE PER MD ORDER Last Admin: 04/01/18 19:16 Dose: 4 mcg/min, 15 mls/hr Propofol (Diprivan) 1,000 mg in 100 mls @ 7.348 mls/hr IV .[id number] PRN; Protocol PRN Reason: TITRATE PER MD ORDER Last Admin: 04/02/18 01:00 Dose: 15 mcg/kg/min, 7.348 mls/hr Levalbuterol HCl (Xopenex) 0.63 mg [facility] TIDRESP [facility] Last Admin: 04/02/18 07:24 Dose: 0.63 mg Lorazepam (Ativan) 0.5 mg PO TID PRN; Protocol PRN Reason: Anxiety Last Admin: 03/31/18 16:36 Dose: 0.5 mg Metoprolol Tartrate (Lopressor) 5 mg IVP Q6H [facility] Last Admin: 04/01/18 18:15 Dose: 5 mg Nystatin (Nystatin Oral Susp) 5 ml PO QID [facility] Last Admin: 04/02/18 11:38 Dose: 5 ml Oxycodone HCl (Oxycodone Immediate Release Tab) 30 mg PO Q6H PRN PRN Reason: Pain, Mild (1-3) Last Admin: 04/01/18 07:38 Dose: 30 mg Pantoprazole Sodium (Protonix Ec Tab) 40 mg PO ACB [facility] Last Admin: 04/02/18 11:39 Dose: Not Given Petrolatum (Desitin Maximum Strength Topical 40% Oint) 0 gm TOP Q4H PRN PRN Reason: Rash Last Admin: 04/02/18 11:31 Dose: 40 tub Polyethylene Glycol (Miralax) 17 gm PO BID [facility] Last Admin: 04/02/18 11:38 Dose: Not Given Prednisone (Prednisone Tab) 15 mg PO DAILY [facility] Last Admin: 04/02/18 11:38 Dose: Not Given Tamsulosin HCl (Flomax) 0.4 mg PO DAILY [facility] Last Admin: 04/02/18 11:37 Dose: Not Given - Labs Labs: 04/02/18 05:15 04/02/18 05:15 PT 13.7 SECONDS (9.4-12.5) H 04/01/18 05:36 INR 1.19 04/01/18 05:36 APTT 54.8 Seconds (26.9-38.3) H 04/02/18 08:00 - Constitutional Appears: No Acute Distress, Chronically Ill - Eye Exam Eye Exam: Normal appearance - Respiratory Exam Respiratory Exam: Decreased Breath Sounds, NORMAL BREATHING PATTERN Additional comments: right chest tube intact - Cardiovascular Exam Cardiovascular Exam: +S1, +S2 - GI/Abdominal Exam GI & Abdominal Exam: Soft, Normal Bowel Sounds - Neurological Exam Neurological Exam: Alert, Awake - Skin Skin Exam: Dry, Intact Assessment and Plan - Assessment and Plan (Free Text) Plan: 67 yr old male with pmh sig for stage Iv lung ca with mets to liver and bone admitted to the ICU for mgmt after presenting to the ED with worsening SOB and hypoxic resp failure, sepsis and new onset chf , right lung white out and pleu ral effusion pt s/p thoracentesis and right chest tube with cardiac, renal, pul and oncology consultations #sepsis/right lung pne s/p iv antibiotic, stable ID recs noted #stage IV metastatic cancer Oncology note rev'd and recommendations noted #right pleural effusion s/p thoracentesis and now s/p right chest tube removal 03/25. ct shows large hydropneunothorax , pt is s/p VATS with unsuccessful attempt for pleurex.. pt developed resp failure post procedure with St elevation on ekg... pt was intubated and is now extubated with BIPAP in place and right chest tube in place. will follow clinically
[2018-04-02] MEDS: Metoprolol 1 mg/ml Inj IVP SCH (14:38)
[2018-04-02] MEDS ORDERED: Metoprolol 1 mg/ml Inj IVP PRN (15:11)
--- NOTE | 2018-04-02 15:27 | PN ---
DATE: 04/02/2018 PULMONARY CRITICAL CARE PROGRESS NOTE REFERRING PHYSICIAN: Fred Sidhu MD. SUBJECTIVE: The patient is lying in bed with BiPAP on, no acute distress. The patient was extubated this morning without incident. Does complain of right-sided chest discomfort at chest tube site. No headache, rhinitis, cough, shortness of breath, abdominal pain, nausea, vomiting, diarrhea, or leg pain reported. OBJECTIVE: VITAL SIGNS: Oxygen saturation 98%, heart rate 98. GENERAL: No acute distress. HEENT: Moist mucous membranes. NECK: Supple. No JVD. RESPIRATORY: Decreased breath sounds on the right. Right side chest tube present, draining red fluid. CARDIOVASCULAR: S1 and S2 audible. ABDOMEN: Soft, nontender. No distension. No organomegaly. EXTREMITIES: Bilateral lower extremity edema. Bilateral upper extremity edema. NEUROLOGIC: Awake, alert, verbal. MEDICATIONS: Reviewed. Mucomyst 4 mL inhalation twice a day, aspirin 81 mg daily, Lipitor 80 mg at dinner, Tessalon Perles 100 mg 3 times a day, Pulmicort 0.5 mg every 12 hours, Debrox twice a day, dextrose 1000 mL at 50 mL per hour, Colace 100 mg daily, Lovenox 40 mg daily, Prozac 10 mg daily, Dilaudid 1 mg every 4 hours p.r.n., Xopenex 0.63 mg inhalation 3 times a day, Ativan 0.5 mg 3 times a day p.r.n., metoprolol tartrate 5 mg every 6 hours, nystatin 5 mL p.o. 4 times a day, oxycodone 30 mg every 6 hours p.r.n., Protonix 40 mg daily, Desitin topically every 4 hours p.r.n. to affected area, MiraLax 17 g twice a day, prednisone 15 mg daily, and Flomax 0.4 mg daily. LABORATORY DATA: Reviewed. WBC 11.3, RBC 2.95, hemoglobin 8.2, hematocrit 25.7, and platelets 140. APTT 54.8, pCO2 of 31, pO2 of 296, HCO3 of 22.6. ABG; pH 7.47. FiO2 of 80. Sodium 136, potassium 4.1, chloride 107, carbon dioxide 24, anion gap 8, BUN 24, creatinine 0.9, GFR greater than 60, random glucose 91, calcium 7.6, phosphorus 2.5, magnesium 1.6. Total bilirubin 0.9, AST 18, ALT 38, alkaline phosphatase 87, lactate dehydrogenase 250, total creatine kinase less than 20, troponin 0.07, total protein 4.1, albumin 1.9, globulin 2.2, and albumin-globulin ratio 0.9. Electrocardiogram shows sinus tachycardia with premature atrial complexes. Chest x-ray shows two chest tubes seen on the right. There is no change in pattern of pneumothorax. IMPRESSION AND PLAN: Metastatic stage IV non-small cell lung cancer with malignant effusion. The patient had chest tube placed in the past with drainage of the fluid, had large pneumothorax which converted to hydropneumothorax, the patient's chest tube was removed. The patient is now status post video-assisted thoracoscopic surgery procedure with failed expansion of right lung, presently with chest tube in place, chronic lung disease, chronic pain syndrome. Moderate output from chest tube. Continue inhaled bronchodilators, continue steroids, pain management, gastric prophylaxis, deep venous thrombosis prophylaxis. Thoracic surgery follow up. Dr. Read discussed the case with Dr. Vaughn this morning. I just spoke with ICU resident regarding patient's case today. We will order ABG, CBC, CMP, chest x-ray in the morning. Critical care time spent more than 35 minutes. The patient was seen and examined with Dr. Read. Discussed assessment and plan as described above. Thank you for this consult. We will follow with you. Mark Luke APN Fred Read MD [place]
[2018-04-02] MEDS ORDERED: HYDROmorphone 0.5 mg/0.5 ml ISec IVP STA (17:55)
[2018-04-02] MEDS: Enoxaparin 40 mg Syringe SC SCH (20:01)
[2018-04-03] MEDS: HYDROmorphone 1 mg/ml ISec IVP PRN ×2 (00:03→04:17)
[2018-04-03] MEDS: oxyCODONE 30 mg Immediate Release Tab PO PRN ×2 (02:25→17:07)
[2018-04-03 05:33] LABS: ARTERIAL BLOOD GAS HCO3 24.7 mmol/L (21-28); ARTERIAL BLOOD GAS HEMOGLOBIN 8.4 g/dL (11.7-17.4); ARTERIAL BLOOD GAS O2 CAPACITY 11.8 mL/dl (16-24); ARTERIAL BLOOD GAS O2 CONTENT 11.8 ML/dl (15-23); ARTERIAL BLOOD GAS O2 SAT 100.3 % (95-98); ARTERIAL BLOOD GAS PCO2 55 mm/Hg (35-45); ARTERIAL BLOOD GAS PH 7.26 (7.35-7.45); ARTERIAL BLOOD GAS TCO2 26.4 mmol.L (22-28)
[2018-04-03 06:31] LABS: HEMOGLOBIN 8.4 g/dL (14.0-18.0); MEAN CELL VOLUME 88.7 fl (80.0-105.0); MEAN CORPUSCULAR HEMOGLOBIN 27.2 pg (25.0-35.0); MEAN CORPUSCULAR HGB CONC 30.7 g/dl (31.0-37.0); MEAN PLATELET VOLUME 10.2 fl (7.0-11.0); RBC 3.09 10^6/uL (3.5-6.1); RED CELL DISTRIBUTION WIDTH 19.8 % (11.5-14.5); WHITE BLOOD COUNT 8.1 10^3/uL (4.5-11.0)
--- NOTE | 2018-04-03 06:45 | CP.PCM.PN ---
<Paloma Rodriguez - Last Filed: 04/03/18 21:37> Subjective - Date & Time of Evaluation Date of Evaluation: 04/03/18 Time of Evaluation: 12:04 - Subjective Subjective: Paloma Rodriguez, PGY-1 Medicine Progress Note for Dr. Sidhu: Pt was seen and examined this AM at bedside. Pt had VATS procedure done 04/01/18 and he still complains about some soreness at the site of the chest tube and pleur-x cath placement. Pt had heparin drip from yesterday d/yenny because per cardio unlikely to be 2/2 ischemic causes and repeat EKG showed sinus arrythmia. He states that he is tolerating his diet and has no associated n/v. Pt denies fevers, chills, L sided chest pain but does admit to R sided chest pain and soreness from chest tube and pluer-x cath site. Pt states that his SOB is improved compared to yesterday. At this time he has no other acute complaints. Objective - Vital Signs/Intake and Output Vital Signs (last 24 hours): Temp Pulse Resp BP Pulse Ox 97.4 F L 86 10 L 110/50 L 97 04/01/18 16:50 04/03/18 01:00 04/03/18 01:00 04/03/18 01:00 04/03/18 01:00 Intake and Output: 04/02/18 04/03/18 18:59 06:59 Intake Total 1660 50 Output Total 450 550 Balance 1210 -500 - Medications Medications: Current Medications Acetylcysteine (Acetylcysteine 20%) 4 ml IH BIDRESP [facility] Last Admin: 04/02/18 20:17 Dose: 4 ml Aspirin (Ecotrin) 81 mg PO DAILY [facility] Last Admin: 04/02/18 11:37 Dose: Not Given Atorvastatin Calcium (Lipitor) 80 mg PO DIN [facility] Last Admin: 04/02/18 20:01 Dose: Not Given Benzonatate (Tessalon Perles) 100 mg PO TID [facility] Last Admin: 04/02/18 14:41 Dose: 100 mg Budesonide (Pulmicort Respules) 0.5 mg IH [id number] [facility] Last Admin: 04/02/18 20:17 Dose: 0.5 mg Carbamide Peroxide (Debrox Ear Drops) 0 ml AU BID [facility] Last Admin: 04/02/18 18:00 Dose: 5 drop Docusate Sodium (Colace) 100 mg PO DAILY [facility] Last Admin: 04/02/18 11:28 Dose: Not Given Enoxaparin Sodium (Lovenox) 40 mg SC DAILY [facility]; Protocol Last Admin: 04/02/18 20:01 Dose: 40 mg Fluoxetine HCl (Prozac) 10 mg PO DAILY [facility] Last Admin: 04/02/18 11:39 Dose: Not Given Hydromorphone HCl (Dilaudid) 1 mg IVP Q4H PRN PRN Reason: Pain, severe (8-10) Last Admin: 04/03/18 04:17 Dose: 1 mg Dextrose/Sodium Chloride (Dextrose 5%/0.45% Ns 1000 Ml) 1,000 mls @ 50 mls/hr IV .Q20H [facility] Last Admin: 04/01/18 11:43 Dose: 50 mls/hr Levalbuterol HCl (Xopenex) 0.63 mg IH TIDRESP [facility] Last Admin: 04/02/18 20:17 Dose: 0.63 mg Lorazepam (Ativan) 0.5 mg PO TID PRN; Protocol PRN Reason: Anxiety Last Admin: 03/31/18 16:36 Dose: 0.5 mg Metoprolol Tartrate (Lopressor) 25 mg PO BRKDIN [facility] Last Admin: 04/02/18 18:39 Dose: 25 mg Metoprolol Tartrate (Lopressor) 5 mg IVP Q6H PRN PRN Reason: Systolic Blood Pressure Nystatin (Nystatin Oral Susp) 5 ml PO QID [facility] Last Admin: 04/02/18 21:05 Dose: 5 ml Oxycodone HCl (Oxycodone Immediate Release Tab) 30 mg PO Q6H PRN PRN Reason: Pain, Mild (1-3) Last Admin: 04/03/18 02:25 Dose: 30 mg Pantoprazole Sodium (Protonix Ec Tab) 40 mg PO ACB [facility] Last Admin: 04/02/18 11:39 Dose: Not Given Petrolatum (Desitin Maximum Strength Topical 40% Oint) 0 gm TOP Q4H PRN PRN Reason: Rash Last Admin: 04/02/18 11:31 Dose: 40 tub Polyethylene Glycol (Miralax) 17 gm PO BID [facility] Last Admin: 04/02/18 20:01 Dose: Not Given Prednisone (Prednisone Tab) 15 mg PO DAILY [facility] Last Admin: 04/02/18 11:38 Dose: Not Given Tamsulosin HCl (Flomax) 0.4 mg PO DAILY [facility] Last Admin: 04/02/18 11:37 Dose: Not Given - Labs Labs: 04/03/18 05:30 04/02/18 05:15 PT 13.7 SECONDS (9.4-12.5) H 04/01/18 05:36 INR 1.19 04/01/18 05:36 APTT 54.8 Seconds (26.9-38.3) H 04/02/18 08:00 - Constitutional Appears: Non-toxic, No Acute Distress, Cachectic, Chronically Ill - Head Exam Head Exam: ATRAUMATIC, NORMAL INSPECTION, NORMOCEPHALIC - Eye Exam Eye Exam: EOMI, Normal appearance, PERRL - Respiratory Exam Respiratory Exam: Decreased Breath Sounds (Worse on R than L), NORMAL BREATHING PATTERN. absent: Accessory Muscle Use, Rales, Rhonchi, Wheezes, Respiratory Distress, Stridor Additional comments: Chest tube and pleur-x cath sites noted to be clean and dry with no surrounding erythema or purulence. - Cardiovascular Exam Cardiovascular Exam: RRR, +S1, +S2. absent: Gallop, Rubs - GI/Abdominal Exam GI & Abdominal Exam: Soft, Normal Bowel Sounds. absent: Firm, Guarding, Rigid, Tenderness - Extremities Exam Extremities Exam: Normal Capillary Refill, Pedal Edema (trace). absent: Calf Tenderness, Tenderness - Back Exam Back Exam: NORMAL INSPECTION. 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 Pt was admitted to ICU for management and treatment of hypoxemic respiratory failure. Pt has recurrent pleural effusion, likely malignant, was now transferred to floors since pt was stable enough to be transferred out of ICU. Pts chest tube was pulled and had some reaccumulation noted on CXR. Pt had CT chest 03/30 which showed large hydropneumothorax. Pt had VATS procedure done 04/01/18. Pt is now transferred out of ICU to [facility], pt is also extubated. Pt will have chest tube removed per surgery today. Plan: 1) Respiratory Failure 2/2 combination of pain medication and anesthestic sedation: Improved - Pt was extubated 04/02/18, and is now on Bipap - CXR done this AM showed improved hydrothorax, but persistent pneumothorax, chest tube and pluer-x cath also noted in CXR - Pt will continue to be monitored - F/u repeat ABG ordered. 2) Inferior Wall STEMI: Resolved - Pt is currently asymptomatic - Noted on EKG on 04/01/18 - Trops: 0.07, 0.06, 0.04 - Heparin drip d/yenny - Repeat EKG 04/02/18 shows sinus arrythmia - Cont Asa, lipitor - Bedside echo done in ICU 3) Recurrent R pleural effusion s/p VATS procedure 04/01/18 - VATS done 04/01/18, R lung was unable to be reinflated, pleur-x cath and chest tube placed. - Chest tube had 432cc of serosang fluid today - CXR 04/03/18 is unchanged from yesterday. - CT Chest 03/19 shows decrease in right pleural effusion, multi-loculated hydropneumothorax, improved aeration of the right lung, multiple liver masses - Blood culture negative for 5 days - completed doxy, merrem course - WBC wnl today, afebrile - Solumedrol 20 qd, pulmicort, mucomyst, xopenex, tessalon perles - IR, pulm, cardio consult - Thoracic surgery consult, recs appreciated 4) Elevated BUN - Improved - Restarted IVF D5 1/2NS @ 50 - Avoid nephrotoxic medications 5) Urinary retention - Pt has boraj in place - Pt had 200cc out from borja - Will continue to monitor 6) Hx of stage 4 non small cell lung cancer - Mets to the liver, lungs, bone - Currently on immunotherapy - Candidate for laser ablation of the right main stem with stent and tumor debulking - Pt/family to make decision in regards to degree of aggressive treatment - Heme/onc on consult - recs appreciated - Psych on consult for depression 7) Mild hyperkalemia - Resolved 8) Tachycardia-resolved - Lopressor 25 po qd 9) Conjunctivitis - Resolved - Topical ciprofloxacin - completed 10) PPX/Diet - Lovenox protonix - HHD Patient seen and case discussed with attending, Dr. Nahum Rodriguez, PGY1 <Fred Sidhu - Last Filed: 04/04/18 17:05> Objective - Vital Signs/Intake and Output Vital Signs (last 24 hours): Temp Pulse Resp BP Pulse Ox 97.8 F 112 H 18 116/72 96 04/04/18 12:00 04/04/18 14:00 04/04/18 12:00 04/04/18 12:00 04/04/18 00:01 Intake and Output: 04/04/18 04/04/18 06:59 18:59 Intake Total 900 Output Total 1150 Balance -250 - Labs Labs: 04/04/18 10:20 04/04/18 06:00 PT 13.7 SECONDS (9.4-12.5) H 04/01/18 05:36 INR 1.19 04/01/18 05:36 APTT 54.8 Seconds (26.9-38.3) H 04/02/18 08:00 Attending/Attestation - Attestation I have personally seen and examined this patient.: Yes I have fully participated in the care of the patient.: Yes I have reviewed all pertinent clinical information, including history, physical exam and plan: Yes Notes (Text): 04/04/18 17:00 Medical record note made by the resident after discussion with my direction and input after the patient was personally seen and examined by me. I have reviewed the chart and agree that the record accurately reflects by personal performance of the history, physical exam, data review, and medical decision-making, in the course for the patient. I have also personally directed the plan of care. 67 M with adenocarcinoma of right lungs, Malignant Pleural effusion, HTN, was on Respiratory support after VATS Procedure, Patient was extubated and currently on BIPAP. Chest X rays showed persistant Hydropneumothorax. Patient condition was discussed with patient over the phone . She is inclining towards Hospice rather than [facility] discharge. She will come and talk with patient today. We will continue current management Patient is full code. Overall prognosis is guarded.
[2018-04-03 06:57] LABS: ALB/GLOB RATIO 0.9 (1.1-1.8); ALBUMIN 2.1 g/dL (3.0-4.8); ALT/SGPT 40 U/L (7-56); AST/SGOT 17 U/L (17-59); BLOOD UREA NITROGEN 24 mg/dL (7-21); CALCIUM 7.6 mg/dL (8.4-10.5); GFR NON-AFRICAN AMERICAN > 60
--- NOTE | 2018-04-03 07:42 | CP.PCM.PN ---
Subjective - Date & Time of Evaluation Date of Evaluation: 04/03/18 Time of Evaluation: 07:42 - Subjective Subjective: Thoracic Surgery Progress note- Dr. Trinidad Patient seen and examined at bedside. Patient was extubated yesterday on BiPAP. Overnight patient remained on 3L NC saturating between 97-99%. Patient states he is more comfortable than yesterday. Pain adequately controlled. Chest to to water seal, 350cc of serosang fluid. no air leak detected. Objective - Vital Signs/Intake and Output Vital Signs (last 24 hours): Temp Pulse Resp BP Pulse Ox 97.4 F L 86 10 L 110/50 L 97 04/01/18 16:50 04/03/18 01:00 04/03/18 01:00 04/03/18 01:00 04/03/18 01:00 Intake and Output: 04/03/18 04/03/18 06:59 18:59 Intake Total 50 Output Total 550 Balance -500 - Medications Medications: Current Medications Acetylcysteine (Acetylcysteine 20%) 4 ml IH BIDRESP [facility] Last Admin: 04/02/18 20:17 Dose: 4 ml Aspirin (Ecotrin) 81 mg PO DAILY [facility] Last Admin: 04/02/18 11:37 Dose: Not Given Atorvastatin Calcium (Lipitor) 80 mg PO DIN [facility] Last Admin: 04/02/18 20:01 Dose: Not Given Benzonatate (Tessalon Perles) 100 mg PO TID [facility] Last Admin: 04/02/18 14:41 Dose: 100 mg Budesonide (Pulmicort Respules) 0.5 mg IH [id number] [facility] Last Admin: 04/02/18 20:17 Dose: 0.5 mg Carbamide Peroxide (Debrox Ear Drops) 0 ml AU BID [facility] Last Admin: 04/02/18 18:00 Dose: 5 drop Docusate Sodium (Colace) 100 mg PO DAILY [facility] Last Admin: 04/02/18 11:28 Dose: Not Given Enoxaparin Sodium (Lovenox) 40 mg SC DAILY [facility]; Protocol Last Admin: 04/02/18 20:01 Dose: 40 mg Fluoxetine HCl (Prozac) 10 mg PO DAILY [facility] Last Admin: 04/02/18 11:39 Dose: Not Given Hydromorphone HCl (Dilaudid) 1 mg IVP Q4H PRN PRN Reason: Pain, severe (8-10) Last Admin: 04/03/18 04:17 Dose: 1 mg Dextrose/Sodium Chloride (Dextrose 5%/0.45% Ns 1000 Ml) 1,000 mls @ 50 mls/hr IV .Q20H [facility] Last Admin: 04/01/18 11:43 Dose: 50 mls/hr Levalbuterol HCl (Xopenex) 0.63 mg IH TIDRESP [facility] Last Admin: 04/02/18 20:17 Dose: 0.63 mg Lorazepam (Ativan) 0.5 mg PO TID PRN; Protocol PRN Reason: Anxiety Last Admin: 03/31/18 16:36 Dose: 0.5 mg Metoprolol Tartrate (Lopressor) 25 mg PO BRKDIN [facility] Last Admin: 04/02/18 18:39 Dose: 25 mg Metoprolol Tartrate (Lopressor) 5 mg IVP Q6H PRN PRN Reason: Systolic Blood Pressure Nystatin (Nystatin Oral Susp) 5 ml PO QID [facility] Last Admin: 04/02/18 21:05 Dose: 5 ml Oxycodone HCl (Oxycodone Immediate Release Tab) 30 mg PO Q6H PRN PRN Reason: Pain, Mild (1-3) Last Admin: 04/03/18 02:25 Dose: 30 mg Pantoprazole Sodium (Protonix Ec Tab) 40 mg PO ACB [facility] Last Admin: 04/02/18 11:39 Dose: Not Given Petrolatum (Desitin Maximum Strength Topical 40% Oint) 0 gm TOP Q4H PRN PRN Reason: Rash Last Admin: 04/02/18 11:31 Dose: 40 tub Polyethylene Glycol (Miralax) 17 gm PO BID [facility] Last Admin: 04/02/18 20:01 Dose: Not Given Prednisone (Prednisone Tab) 15 mg PO DAILY [facility] Last Admin: 04/02/18 11:38 Dose: Not Given Tamsulosin HCl (Flomax) 0.4 mg PO DAILY [facility] Last Admin: 04/02/18 11:37 Dose: Not Given - Labs Labs: 04/03/18 05:30 04/03/18 05:30 PT 13.7 SECONDS (9.4-12.5) H 04/01/18 05:36 INR 1.19 04/01/18 05:36 APTT 54.8 Seconds (26.9-38.3) H 04/02/18 08:00 - Constitutional Appears: Non-toxic, No Acute Distress - Head Exam Head Exam: ATRAUMATIC - Eye Exam Eye Exam: EOMI. absent: Scleral icterus - ENT Exam ENT Exam: Mucous Membranes Moist - Respiratory Exam Respiratory Exam: Decreased Breath Sounds (on the right), NORMAL BREATHING PATTERN. absent: Accessory Muscle Use, Respiratory Distress Additional comments: Chest tube in place to water seal, no air leak detected - Cardiovascular Exam Cardiovascular Exam: REGULAR RHYTHM. absent: Bradycardia, Tachycardia - GI/Abdominal Exam GI & Abdominal Exam: Soft. absent: Guarding, Rigid, Tenderness - Extremities Exam Extremities Exam: Pedal Edema. absent: Calf Tenderness - Neurological Exam Neurological Exam: Alert, Awake, Oriented x3 - Skin Skin Exam: Intact, Warm Assessment and Plan - Assessment and Plan (Free Text) Assessment: 67M w/ stage IV lung Ca s/p VATS, inspira catheter, 28F Chest tube placement; intra-op fibrosed lung unable to re-expand intraop POD#2 Plan: - maintain O2 saturation > 88% - f/u AM CXR - Pending CXR will plan removal of chest tube - MAP > 65 - strict I/O - replace lytes PRN - Hep GGT discontinued; repeat trops negative, likely demand ischemia - continued management per critical care team - further recs per Dr. Vivi Alvarez PGY2
[2018-04-03] MEDS: Budesonide 0.5 mg/2 ml Inhal Susp UD IH SCH ×2 (07:43→20:45)
[2018-04-03] MEDS: Levalbuterol 0.63 MG/3 ML Inhal Soln UD IH SCH ×3 (07:43→20:45)
[2018-04-03] MEDS: Acetylcysteine 20% Inhal Soln (4ml) IH SCH ×2 (07:43→20:45)
[2018-04-03] MEDS: Pantoprazole 40 mg EC Tab PO SCH (07:57)
--- NOTE | 2018-04-03 08:08 | PN ---
DATE: 04/02/2018 SUBJECTIVE: The patient was seen lying in the CCU. He underwent video-assisted thoracoscopy yesterday with attempted re-expansion of his right lung. This was found to be unsuccessful and a PleurX catheter was placed upon transfer to the CCU. His electrocardiogram was suspicious for ST elevations inferiorly, however, there was extensive artifact present on the cardiogram as well. Cardiac evaluation was requested. He was seen lying in bed in the CCU this morning. He is on a BiPAP mask, was extubated earlier. He is seen in the presence of his daughter. He denies any chest pain. MEDICATIONS: His current medications include IV heparin, Mucomyst, Ativan, Dilaudid, Ecotrin, Flomax, Lipitor, metoprolol 5 mg IV every 6 hours, Lovenox, prednisone, Protonix, Prozac, Pulmicort, Xopenex. OBJECTIVE: GENERAL: He is a chronically ill-appearing middle-aged man. VITAL SIGNS: His blood pressure is 134/60 with a pulse of 116 in sinus with supraventricular premature beats and nonspecific ST-T abnormalities. HEENT: No JVD. BiPAP mask in place. CHEST: Diminished breath sounds noted on the right with scattered rhonchi heard on the left. HEART: Systolic murmur is present lower left sternal border. ABDOMEN: Soft and nontender with normoactive bowel sounds. EXTREMITIES: No edema. DIAGNOSTIC DATA: Potassium 4.1, BUN and creatinine are 24 and 0.9. Troponin 0.05, followed by 0.07 and repeat is 0.06. His electrocardiogram from this morning reveals sinus tachycardia with frequent supraventricular premature beats and nonspecific ST-T abnormalities. No ST elevations are noted. Chest x-ray reveals normal cardiac silhouette with [address] on the right. Shoulder blades are rotated. IMPRESSION: 1. Status post video-assisted thoracoscopy for a trapped lung with placement of chest tubes, appears hemodynamically stable at the present time. 2. Abnormal echocardiogram postoperatively, now back to baseline with no enzyme evidence of acute myocardial infarction. 3. Rest of problems as noted. RECOMMENDATIONS: At this time, IV heparin can be discontinued. Conservative cardiac medication is advised at this time. No further cardiac workup appears necessary. We will follow along as needed. Tony Singh MD [facility] # [id number]
--- NOTE | 2018-04-03 08:51 | RAD ---
Date of service: 04/03/2018 HISTORY: s/p VATS and chest tube placement COMPARISON: 04/02/2018 FINDINGS: LUNGS: There is no change in the pattern of the right-sided pneumothorax. Two chest tubes are seen in place. PLEURA: No significant pleural effusion identified, no pneumothorax apparent. CARDIOVASCULAR: No aortic atherosclerotic calcification present. Normal cardiac size. No pulmonary vascular congestion. OSSEOUS STRUCTURES: No significant abnormalities. VISUALIZED UPPER ABDOMEN: Normal. OTHER FINDINGS: None. IMPRESSION: There is no change in the pattern of the right-sided pneumothorax. Two chest tubes are seen in place.
--- NOTE | 2018-04-03 10:26 | PN ---
DATE: 04/02/2018 ONCOLOGY PROGRESS NOTE LOCATION: ICU, bed 7, room 129. SUBJECTIVE: The patient is currently in the unit, is laying in bed with BiPAP on. The patient was extubated this morning without incident. He does complain of right-sided discomfort at chest tube site. No headaches, rhinitis, cough, shortness of breath, abdominal pain, nausea, vomiting, diarrhea or leg pain noted. PHYSICAL EXAMINATION: VITAL SIGNS: Noted. O2 saturation is 98%, heart rate is 98. The patient has no significant distress, no complaints of significant pain at the tube site. HEENT: Revealed moist mucous membranes. NECK: Supple. There is no adenopathy. LUNGS: Decreased breath sounds on the right side. The right chest tube being noted and draining fluids. CARDIOVASCULAR: Examination revealed S1 and S2 to be normal. Tachycardia is noted. ABDOMEN: Soft and nontender. No rebound, rigidity or guarding is noted. EXTREMITIES: Reveals bilateral lower extremity edema. NEUROLOGIC: Examination revealed the patient to be awake, alert and verbal. MEDICATIONS: Reviewed. The patient is on Mucomyst 4 mL inhaled twice a day, aspirin 81 mg daily, Lipitor 80 mg at dinner, Tessalon Perles 100 mg three times a day, Pulmicort 0.5 mg every 12 hours, Debrox twice a day. The patient is on IV fluids at 50 mL an hour, Colace 100 mg daily, Lovenox 40 mg daily, Prozac 10 mg daily, Dilaudid 1 mg IV every 4 hours p.r.n., Xopenex 0.63 mg inhaled three times a day, Ativan 0.5 mg three times a day p.r.n., metoprolol tartrate 5 mg every 6 hours, Nystatin 5 mL four times a day p.o., oxycodone 30 mg every six hours p.r.n., Protonix 40 mg daily, Desitin topically applied every 4 hours p.r.n. to the affected area, MiraLax 17 g twice a day, and Flomax 0.4 mg daily. LABORATORY DATA: Revealed a white count of 11.3, hemoglobin 8.2, hematocrit 25, and platelet count 147,000. Electrolytes revealed sodium of 136, K of 4.1, CO2 of 107, carbon dioxide 24, anion gap of 8, BUN of 24, creatinine 0.9, magnesium is 1.6, total bili is 0.9, AST is 18, ALT is 38, alkaline phosphatase 87, LDH 250. EKG shows sinus tachycardia with premature atrial complexes. Chest x-ray shows the PleurX catheter on the right side is in proper place. There is no change in the pattern of the pneumothorax. Lung is not still expanded. ASSESSMENT, NOTES, AND PLAN: A detailed discussion with thoracic surgeons, spoke with Dr. Read as well. The patient has metastatic stage 4 non-small cell carcinoma with pleural effusion. Lungs, after video-assisted thoracoscopic surgery procedure and placement of the PleurX catheter, has still not expanded fully. There was no endotracheal disease or endoluminal disease as per my discussion with the thoracic surgeon. Most of the disease is extrinsic in the right hilar area; and the collapse has been chronic and despite the lung is not expanding to the extent we wanted to. The patient has had the chest tube for some time now, initially a smaller one, then a larger one, and now post video thoracoscopic surgery, the patient has had the PleurX catheter placed. The patient still has some moderate output from the tube. We will continue bronchial toilet, bronchodilators, gastric, and deep vein thrombosis prophylaxis. We will speak to the family regarding further management at this point in time. The patient continues to improve and stabilize with the catheter. Our plan would be to see if we can initiate some form of therapy directed towards the lung cancer. Most of the disease appears to be confined just to the right side of the lung and in the dome of the diaphragm of the liver. Most recent PET CT done at his other institution where he has had prior treatment have shown local regional disease without any distant metastasis. Lines of chemotherapy available to him would be Keytruda along with a drug like Abraxane which he has had in the past, but would be worthwhile in conjunction with the treatment. I will discuss my findings with the family as well and then proceed accordingly. I spoke to Dr. Read and will keep close monitor on the patient. Time spent with the patient is greater than 35 to 40 minutes in counseling the patient and more importantly talking to the rest of the members of the family. Festus Vaughn MD
[2018-04-03] MEDS: Enoxaparin 40 mg Syringe SC SCH ×2 (10:34→13:21)
--- NOTE | 2018-04-03 12:05 | CP.CCUPN ---
<Neris Irwin - Last Filed: 04/03/18 12:00> CCU Subjective - Physician Review Subjective (Free Text): Neris Irwin PGY1 Critical Care Progress Note Patient seen and examined at bedside this morning. No acute events reported night. S/p extubation yesterday. BP is stable off of levophed drip. Patient continues to admit to right sided chest discomfort but denies CP, SOB, headaches, nausea, vomiting and headaches. Transfer to tele today. CCU Objective - Vital Signs / Intake & Output Vital Signs (Last 4 hours): Vital Signs Pulse 04/03/18 09:22 90 Intake and Output (Last 8hrs): Intake & Output 04/02/18 04/03/18 04/03/18 22:59 06:59 14:59 Intake Total 1660 50 Output Total 450 550 Balance 1210 -500 Weight 177 lb Intake: IV 260 left chest wall lucero 260 cath Oral 1400 50 Output: Chest Tube Drainage 350 Right Anterior Chest 350 Urine 450 200 Urine, Voided 450 200 - Physical Exam Head: Positive for: Atraumatic, Normocephalic Pupils: Positive for: PERRL Extroacular Muscles: Positive for: EOMI Conjunctiva: Positive for: Injected Mouth: Positive for: Moist Mucous Membranes Nose (External): Positive for: Atraumatic Nose (Internal): Positive for: No Active Bleeding Neck: Positive for: Normal Range of Motion Respiratory/Chest: Positive for: Decreased Breath Sounds (decreased breath sounds in the right lower lung field ), Other (right sided chest tube present draining red fluid ). Negative for: Respiratory Distress, Accessory Muscle Use Cardiovascular: Positive for: Regular Rate and Rhythm, Normal S1, S2. Negative for: Murmurs Abdomen: Negative for: Tenderness, Distention, Peritoneal Signs Back: Positive for: Normal Inspection Upper Extremity: Positive for: Normal Inspection. Negative for: Cyanosis, Edema Lower Extremity: Positive for: Edema (1+ pitting edema bilaterally) Neurological: Positive for: GCS=15, CN II-XII Intact, Speech Normal Skin: Positive for: Warm, Dry, Normal Color. Negative for: Rashes Psychiatric: Positive for: Alert, Oriented x 3, Normal Insight, Normal Concentration. Negative for: Agitated - Medications Active Medications: Active Medications Generic Name Dose Route Start Last Admin Trade Name Freq PRN Reason Stop Dose Admin Acetylcysteine 4 ml 03/13/18 20:00 04/03/18 07:43 Acetylcysteine 20% IH 4 ml BIDRESP DAVID Administration Aspirin 81 mg 04/01/18 17:45 04/03/18 10:35 Ecotrin PO 81 mg DAILY DAVID Administration Atorvastatin Calcium 80 mg 04/01/18 17:45 04/02/18 20:01 Lipitor PO Not Given DIN DAVID Benzonatate 100 mg 03/14/18 14:00 04/03/18 10:35 Tessalon Perles PO 100 mg TID DAVID Administration Budesonide 0.5 mg 03/13/18 20:00 04/03/18 07:43 Pulmicort Respules IH 0.5 mg [id number] DAVID Administration Carbamide Peroxide 0 ml 03/29/18 10:45 04/02/18 18:00 Debrox Ear Drops AU 5 drop BID DAVID Administration Docusate Sodium 100 mg 04/03/18 11:30 Colace PO BID DAVID Enoxaparin Sodium 40 mg 03/14/18 10:00 04/03/18 10:34 Lovenox SC 40 mg DAILY DAVID Administration Protocol Fluoxetine HCl 10 mg 03/28/18 10:00 04/03/18 10:35 Prozac PO 10 mg DAILY DAVID Administration Dextrose/Sodium Chloride 1,000 mls @ 50 mls/hr 04/01/18 11:30 04/01/18 11:43 Dextrose 5%/0.45% Ns 1000 Ml IV 50 mls/hr .Q20H DAVID Administration Levalbuterol HCl 0.63 mg 03/13/18 14:00 04/03/18 07:43 Xopenex IH 0.63 mg TIDRESP DAVID Administration Lidocaine 1 ea 04/03/18 11:45 Lidoderm TD DAILY DAVID Lorazepam 0.5 mg 03/30/18 12:07 03/31/18 16:36 Ativan PO 0.5 mg TID PRN Administration Anxiety Protocol Metoprolol Tartrate 25 mg 04/02/18 15:10 04/03/18 07:58 Lopressor PO 25 mg BRKDIN DAVDI Administration Metoprolol Tartrate 5 mg 04/02/18 15:11 Lopressor IVP Q6H PRN Systolic Blood Pressure Oxycodone HCl 30 mg 04/03/18 11:28 Oxycodone Immediate Release Tab PO Q6H PRN Pain, moderate (4-7) Pantoprazole Sodium 40 mg 03/15/18 07:30 04/03/18 07:57 Protonix Ec Tab PO 40 mg ACB DAVID Administration Petrolatum 0 gm 03/31/18 12:36 04/02/18 11:31 Desitin Maximum Strength Topical 40% Oint TOP 40 tub Q4H PRN Administration Rash Polyethylene Glycol 17 gm 03/22/18 10:00 04/02/18 20:01 Miralax PO Not Given BID DAVID Prednisone 15 mg 03/31/18 10:00 04/03/18 10:35 Prednisone Tab PO 15 mg DAILY DAVID Administration Tamsulosin HCl 0.4 mg 03/21/18 10:15 04/03/18 10:35 Flomax PO 0.4 mg DAILY DAVID Administration - Patient Studies Lab Studies: Microbiology Studies 04/01/18 19:43 MRSA Culture (Admit) - Final Nose MRSA NOT DETECTED 04/01/18 16:30 Gram Stain - Final Pleural Fluid Body Fluid Culture - Preliminary NO GROWTH AFTER 24 HOURS Lab Studies 04/03/18 04/03/18 04/03/18 Range/Units 05:30 05:30 05:00 WBC 8.1 D (4.5-11.0) 10^3/uL RBC 3.09 L (3.5-6.1) 10^6/uL Hgb 8.4 L (14.0-18.0) g/dL Hct 27.4 L (42.0-52.0) % MCV 88.7 (80.0-105.0) fl MCH 27.2 (25.0-35.0) pg MCHC 30.7 L (31.0-37.0) g/dl RDW 19.8 H (11.5-14.5) % Plt Count 103 L (120.0-450.0) 10^3/uL MPV 10.2 (7.0-11.0) fl pCO2 55 H (35-45) mm/Hg pO2 130.0 H (80-100) mm/Hg HCO3 24.7 (21-28) mmol/L ABG pH 7.26 L (7.35-7.45) ABG Total CO2 26.4 (22-28) mmol.L ABG O2 Saturation 100.3 H (95-98) % ABG O2 Content 11.8 L (15-23) ML/dl ABG Base Excess -2.5 L (-2.0-3.0) mmol/L ABG Hemoglobin 8.4 L (11.7-17.4) g/dL ABG Carboxyhemoglobin 2.3 H (0.5-1.5) % POC ABG HHb (Measured) -0.3 L (0-5) % ABG Methemoglobin 0.8 (0.0-3.0) % ABG O2 Capacity 11.8 L (16-24) mL/dl Hgb O2 Saturation 97.2 (95.0-98.0) % FiO2 36.0 % Sodium 135 (132-148) mmol/L Potassium 4.0 (3.6-5.0) mmol/L Chloride 107 (98-107) mmol/L Carbon Dioxide 25 (21-33) mmol/L Anion Gap 7 L (10-20) BUN 24 H (7-21) mg/dL Creatinine 0.9 (0.8-1.5) mg/dl Est GFR ( Amer) > 60 Est GFR (Non-Af Amer) > 60 Random Glucose 85 (70-110) mg/dL Calcium 7.6 L (8.4-10.5) mg/dL Phosphorus 3.0 (2.5-4.5) mg/dL Magnesium 2.0 (1.7-2.2) mg/dL Total Bilirubin 0.7 (0.2-1.3) mg/dL AST 17 (17-59) U/L ALT 40 (7-56) U/L Alkaline Phosphatase 95 (38-126) U/L Troponin I ng/mL Total Protein 4.4 L (5.8-8.3) g/dL Albumin 2.1 L (3.0-4.8) g/dL Globulin 2.3 gm/dL Albumin/Globulin Ratio 0.9 L (1.1-1.8) 04/02/18 Range/Units 20:37 WBC (4.5-11.0) 10^3/uL RBC (3.5-6.1) 10^6/uL Hgb (14.0-18.0) g/dL Hct (42.0-52.0) % MCV (80.0-105.0) fl MCH (25.0-35.0) pg MCHC (31.0-37.0) g/dl RDW (11.5-14.5) % Plt Count (120.0-450.0) 10^3/uL MPV (7.0-11.0) fl pCO2 (35-45) mm/Hg pO2 (80-100) mm/Hg HCO3 (21-28) mmol/L ABG pH (7.35-7.45) ABG Total CO2 (22-28) mmol.L ABG O2 Saturation (95-98) % ABG O2 Content (15-23) ML/dl ABG Base Excess (-2.0-3.0) mmol/L ABG Hemoglobin (11.7-17.4) g/dL ABG Carboxyhemoglobin (0.5-1.5) % POC ABG HHb (Measured) (0-5) % ABG Methemoglobin (0.0-3.0) % ABG O2 Capacity (16-24) mL/dl Hgb O2 Saturation (95.0-98.0) % FiO2 % Sodium (132-148) mmol/L Potassium (3.6-5.0) mmol/L Chloride (98-107) mmol/L Carbon Dioxide (21-33) mmol/L Anion Gap (10-20) BUN (7-21) mg/dL Creatinine (0.8-1.5) mg/dl Est GFR ( Amer) Est GFR (Non-Af Amer) Random Glucose (70-110) mg/dL Calcium (8.4-10.5) mg/dL Phosphorus (2.5-4.5) mg/dL Magnesium (1.7-2.2) mg/dL Total Bilirubin (0.2-1.3) mg/dL AST (17-59) U/L ALT (7-56) U/L Alkaline Phosphatase (38-126) U/L Troponin I 0.04 D ng/mL Total Protein (5.8-8.3) g/dL Albumin (3.0-4.8) g/dL Globulin gm/dL Albumin/Globulin Ratio (1.1-1.8) Laboratory Results - last 24 hr 04/02/18 04/03/18 04/03/18 20:37 05:00 05:30 WBC 8.1 D RBC 3.09 L Hgb 8.4 L Hct 27.4 L MCV 88.7 MCH 27.2 MCHC 30.7 L RDW 19.8 H Plt Count 103 L MPV 10.2 pCO2 55 H pO2 130.0 H HCO3 24.7 ABG pH 7.26 L ABG Total CO2 26.4 ABG O2 Saturation 100.3 H ABG O2 Content 11.8 L ABG Base Excess -2.5 L ABG Hemoglobin 8.4 L ABG Carboxyhemoglobin 2.3 H POC ABG HHb (Measured) -0.3 L ABG Methemoglobin 0.8 ABG O2 Capacity 11.8 L Hgb O2 Saturation 97.2 FiO2 36.0 Sodium Potassium Chloride Carbon Dioxide Anion Gap BUN Creatinine Est GFR ( Amer) Est GFR (Non-Af Amer) Random Glucose Calcium Phosphorus Magnesium Total Bilirubin AST ALT Alkaline Phosphatase Troponin I 0.04 D Total Protein Albumin Globulin Albumin/Globulin Ratio 04/03/18 05:30 WBC RBC Hgb Hct MCV MCH MCHC RDW Plt Count MPV pCO2 pO2 HCO3 ABG pH ABG Total CO2 ABG O2 Saturation ABG O2 Content ABG Base Excess ABG Hemoglobin ABG Carboxyhemoglobin POC ABG HHb (Measured) ABG Methemoglobin ABG O2 Capacity Hgb O2 Saturation FiO2 Sodium 135 Potassium 4.0 Chloride 107 Carbon Dioxide 25 Anion Gap 7 L BUN 24 H Creatinine 0.9 Est GFR ( Amer) > 60 Est GFR (Non-Af Amer) > 60 Random Glucose 85 Calcium 7.6 L Phosphorus 3.0 Magnesium 2.0 Total Bilirubin 0.7 AST 17 ALT 40 Alkaline Phosphatase 95 Troponin I Total Protein 4.4 L Albumin 2.1 L Globulin 2.3 Albumin/Globulin Ratio 0.9 L Radiology Impressions: Radiology Impressions Chest X-Ray 04/03/18 06:00 IMPRESSION: There is no change in the pattern of the right-sided pneumothorax. Two chest tubes are seen in place. 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 S/p extubation on 04/02/18. Transfer to tele today. Plan: Neuro: -maintain normothermia -AAO x3, moving extremities spontaneously past midline -morphine and oxycodone as needed for pain Cardio: -maintain MAP>65 -will monitor vitals including HR and BP closely, BP has been stable off of levophed drip -EKG on 04/01 showed inferior wall ischemic changes postoperatively, initially on heparin drip -heparin drip stopped 04/02 trops 0.06, 0.07 and 0.05. -off of levophed drip on 04/02/18 -cardiology on consult, Dr. Montoya -echo on 03/12 showed EF of 53%, moderate to severe TR, pulmondary HTN with RVSP of 61 Lungs: Recurrent right sided pleural effusion -s/p VATS with chest tube placement on 04/01/18 -chest tube drained 350cc today of seroosanguineous fluid -SaO2 >90% -supplementary O2 PRN -continue actelycysteine, pulmicort, xopenex and prednisone daily 15mg -CXR today shows 2 chest tubes on the right side, no change from yesterday per my read Renal: -maintain euvolemia -avoid nephrotoxic agents, hypochloremia -replace electrolytes as needed -BUN/Cr is WNL -ABG today reads pH/pO2/pCO2/bicarb of 7.26/130/55/25 Heme: -Hg today is 8.4 today, will monitor -DVT ppx with lovenox Endo: -maintain euglycemia, will target glucose 140-180 ID: -WBC is 8.3 from 11.3, afebrile -blood culture negative for 5 days on 03/11/18 GI: -swallow eval, regular diet if passed -GI prophylaxis with protonix Patient seen and case discussed with attending, Dr. Ambrosio <Flakito Ambrosio - Last Filed: 04/03/18 15:28> CCU Objective - Vital Signs / Intake & Output Vital Signs (Last 4 hours): Vital Signs Pulse Resp BP Pulse Ox 04/03/18 14:00 97 H 24 100/53 L 99 04/03/18 13:00 98 H 59 H 79/52 L 94 L 04/03/18 12:55 91 H 18 99/61 L 98 04/03/18 12:00 90 18 77/37 L 98 Intake and Output (Last 8hrs): Intake & Output 04/03/18 04/03/18 04/03/18 06:59 14:59 22:59 Intake Total 50 600 Output Total 550 280 Balance -500 320 Weight 177 lb Intake: Oral 50 600 Output: Chest Tube Drainage 350 30 Right Anterior Chest 350 30 Urine 200 250 Urine, Voided 200 250 Other: # Voids Urine, Voided 1 - Medications Active Medications: Active Medications Generic Name Dose Route Start Last Admin Trade Name Freq PRN Reason Stop Dose Admin Acetylcysteine 4 ml 03/13/18 20:00 04/03/18 07:43 Acetylcysteine 20% IH 4 ml BIDRESP DAVID Administration Aspirin 81 mg 04/01/18 17:45 04/03/18 10:35 Ecotrin PO 81 mg DAILY DAVID Administration Atorvastatin Calcium 80 mg 04/01/18 17:45 04/02/18 20:01 Lipitor PO Not Given DIN DAVID Benzonatate 100 mg 03/14/18 14:00 04/03/18 10:35 Tessalon Perles PO 100 mg TID DAVID Administration Budesonide 0.5 mg 03/13/18 20:00 04/03/18 07:43 Pulmicort Respules IH 0.5 mg [id number] DAVID Administration Carbamide Peroxide 0 ml 03/29/18 10:45 04/03/18 13:20 Debrox Ear Drops AU 1 drop BID DAVID Administration Docusate Sodium 100 mg 04/03/18 11:30 04/03/18 13:26 Colace PO 100 mg BID DAVID Administration Enoxaparin Sodium 40 mg 03/14/18 10:00 04/03/18 13:21 Lovenox SC 40 mg DAILY DAVID Administration Protocol Fluoxetine HCl 10 mg 03/28/18 10:00 04/03/18 10:35 Prozac PO 10 mg DAILY DAVID Administration Dextrose/Sodium Chloride 1,000 mls @ 50 mls/hr 04/01/18 11:30 04/01/18 11:43 Dextrose 5%/0.45% Ns 1000 Ml IV 50 mls/hr .Q20H DAVID Administration Levalbuterol HCl 0.63 mg 03/13/18 14:00 04/03/18 13:08 Xopenex IH 0.63 mg TIDRESP DAVID Administration Lidocaine 1 ea 04/03/18 11:45 04/03/18 13:26 Lidoderm TD 1 ea DAILY DAVID Administration Lorazepam 0.5 mg 03/30/18 12:07 03/31/18 16:36 Ativan PO 0.5 mg TID PRN Administration Anxiety Protocol Metoprolol Tartrate 25 mg 04/02/18 15:10 04/03/18 07:58 Lopressor PO 25 mg BRKDIN DAVID Administration Metoprolol Tartrate 5 mg 04/02/18 15:11 Lopressor IVP Q6H PRN Systolic Blood Pressure Oxycodone HCl 30 mg 04/03/18 11:28 Oxycodone Immediate Release Tab PO Q6H PRN Pain, moderate (4-7) Pantoprazole Sodium 40 mg 03/15/18 07:30 04/03/18 07:57 Protonix Ec Tab PO 40 mg ACB DAVID Administration Petrolatum 0 gm 03/31/18 12:36 04/02/18 11:31 Desitin Maximum Strength Topical 40% Oint TOP 40 tub Q4H PRN Administration Rash Polyethylene Glycol 17 gm 03/22/18 10:00 04/02/18 20:01 Miralax PO Not Given BID DAVID Prednisone 15 mg 03/31/18 10:00 04/03/18 10:35 Prednisone Tab PO 15 mg DAILY DAVID Administration Tamsulosin HCl 0.4 mg 03/21/18 10:15 04/03/18 10:35 Flomax PO 0.4 mg DAILY DAVID Administration - Patient Studies Lab Studies: Microbiology Studies 04/01/18 16:30 Mycobacterial Culture - Preliminary Other: Please Indicate 04/01/18 19:43 MRSA Culture (Admit) - Final Nose MRSA NOT DETECTED 04/01/18 16:30 Gram Stain - Final Pleural Fluid Body Fluid Culture - Preliminary NO GROWTH AFTER 24 HOURS Lab Studies 04/03/18 04/03/18 04/03/18 Range/Units 12:50 05:30 05:30 WBC 8.1 D (4.5-11.0) 10^3/uL RBC 3.09 L (3.5-6.1) 10^6/uL Hgb 8.4 L (14.0-18.0) g/dL Hct 27.4 L (42.0-52.0) % MCV 88.7 (80.0-105.0) fl MCH 27.2 (25.0-35.0) pg MCHC 30.7 L (31.0-37.0) g/dl RDW 19.8 H (11.5-14.5) % Plt Count 103 L (120.0-450.0) 10^3/uL MPV 10.2 (7.0-11.0) fl pCO2 44 (35-45) mm/Hg pO2 75.0 L (80-100) mm/Hg HCO3 24.9 (21-28) mmol/L ABG pH 7.36 (7.35-7.45) ABG Total CO2 26.3 (22-28) mmol.L ABG O2 Saturation 98.6 H (95-98) % ABG O2 Content (15-23) ML/dl ABG Base Excess -0.8 (-2.0-3.0) mmol/L ABG Hemoglobin (11.7-17.4) g/dL ABG Carboxyhemoglobin (0.5-1.5) % POC ABG HHb (Measured) (0-5) % ABG Methemoglobin (0.0-3.0) % ABG O2 Capacity (16-24) mL/dl ABG Potassium 3.8 (3.6-5.2) mmol/L Hgb O2 Saturation (95.0-98.0) % Glucose 93 (75-110) mg/dl Lactate 0.8 (0.7-2.1) mmol/L FiO2 24.0 % Sodium 136.0 135 (132-148) mmol/L Potassium 4.0 (3.6-5.0) mmol/L Chloride 108.0 H 107 (98-107) mmol/L Carbon Dioxide 25 (21-33) mmol/L Anion Gap 7 L (10-20) BUN 24 H (7-21) mg/dL Creatinine 0.9 (0.8-1.5) mg/dl Est GFR ( Amer) > 60 Est GFR (Non-Af Amer) > 60 Random Glucose 85 (70-110) mg/dL Calcium 7.6 L (8.4-10.5) mg/dL Phosphorus 3.0 (2.5-4.5) mg/dL Magnesium 2.0 (1.7-2.2) mg/dL Total Bilirubin 0.7 (0.2-1.3) mg/dL AST 17 (17-59) U/L ALT 40 (7-56) U/L Alkaline Phosphatase 95 (38-126) U/L Troponin I ng/mL Total Protein 4.4 L (5.8-8.3) g/dL Albumin 2.1 L (3.0-4.8) g/dL Globulin 2.3 gm/dL Albumin/Globulin Ratio 0.9 L (1.1-1.8) Arterial Blood Potassium 3.8 (3.6-5.2) mmol/L 04/03/18 04/02/18 Range/Units 05:00 20:37 WBC (4.5-11.0) 10^3/uL RBC (3.5-6.1) 10^6/uL Hgb (14.0-18.0) g/dL Hct (42.0-52.0) % MCV (80.0-105.0) fl MCH (25.0-35.0) pg MCHC (31.0-37.0) g/dl RDW (11.5-14.5) % Plt Count (120.0-450.0) 10^3/uL MPV (7.0-11.0) fl pCO2 55 H (35-45) mm/Hg pO2 130.0 H (80-100) mm/Hg HCO3 24.7 (21-28) mmol/L ABG pH 7.26 L (7.35-7.45) ABG Total CO2 26.4 (22-28) mmol.L ABG O2 Saturation 100.3 H (95-98) % ABG O2 Content 11.8 L (15-23) ML/dl ABG Base Excess -2.5 L (-2.0-3.0) mmol/L ABG Hemoglobin 8.4 L (11.7-17.4) g/dL ABG Carboxyhemoglobin 2.3 H (0.5-1.5) % POC ABG HHb (Measured) -0.3 L (0-5) % ABG Methemoglobin 0.8 (0.0-3.0) % ABG O2 Capacity 11.8 L (16-24) mL/dl ABG Potassium (3.6-5.2) mmol/L Hgb O2 Saturation 97.2 (95.0-98.0) % Glucose (75-110) mg/dl Lactate (0.7-2.1) mmol/L FiO2 36.0 % Sodium (132-148) mmol/L Potassium (3.6-5.0) mmol/L Chloride (98-107) mmol/L Carbon Dioxide (21-33) mmol/L Anion Gap (10-20) BUN (7-21) mg/dL Creatinine (0.8-1.5) mg/dl Est GFR ( Amer) Est GFR (Non-Af Amer) Random Glucose (70-110) mg/dL Calcium (8.4-10.5) mg/dL Phosphorus (2.5-4.5) mg/dL Magnesium (1.7-2.2) mg/dL Total Bilirubin (0.2-1.3) mg/dL AST (17-59) U/L ALT (7-56) U/L Alkaline Phosphatase (38-126) U/L Troponin I 0.04 D ng/mL Total Protein (5.8-8.3) g/dL Albumin (3.0-4.8) g/dL Globulin gm/dL Albumin/Globulin Ratio (1.1-1.8) Arterial Blood Potassium (3.6-5.2) mmol/L Laboratory Results - last 24 hr 04/02/18 04/03/18 04/03/18 20:37 05:00 05:30 WBC 8.1 D RBC 3.09 L Hgb 8.4 L Hct 27.4 L MCV 88.7 MCH 27.2 MCHC 30.7 L RDW 19.8 H Plt Count 103 L MPV 10.2 pCO2 55 H pO2 130.0 H HCO3 24.7 ABG pH 7.26 L ABG Total CO2 26.4 ABG O2 Saturation 100.3 H ABG O2 Content 11.8 L ABG Base Excess -2.5 L ABG Hemoglobin 8.4 L ABG Carboxyhemoglobin 2.3 H POC ABG HHb (Measured) -0.3 L ABG Methemoglobin 0.8 ABG O2 Capacity 11.8 L ABG Potassium Hgb O2 Saturation 97.2 Glucose Lactate FiO2 36.0 Sodium Potassium Chloride Carbon Dioxide Anion Gap BUN Creatinine Est GFR ( Amer) Est GFR (Non-Af Amer) Random Glucose Calcium Phosphorus Magnesium Total Bilirubin AST ALT Alkaline Phosphatase Troponin I 0.04 D Total Protein Albumin Globulin Albumin/Globulin Ratio Arterial Blood Potassium 04/03/18 04/03/18 05:30 12:50 WBC RBC Hgb Hct MCV MCH MCHC RDW Plt Count MPV pCO2 44 pO2 75.0 L HCO3 24.9 ABG pH 7.36 ABG Total CO2 26.3 ABG O2 Saturation 98.6 H ABG O2 Content ABG Base Excess -0.8 ABG Hemoglobin ABG Carboxyhemoglobin POC ABG HHb (Measured) ABG Methemoglobin ABG O2 Capacity ABG Potassium 3.8 Hgb O2 Saturation Glucose 93 Lactate 0.8 FiO2 24.0 Sodium 135 136.0 Potassium 4.0 Chloride 107 108.0 H Carbon Dioxide 25 Anion Gap 7 L BUN 24 H Creatinine 0.9 Est GFR ( Amer) > 60 Est GFR (Non-Af Amer) > 60 Random Glucose 85 Calcium 7.6 L Phosphorus 3.0 Magnesium 2.0 Total Bilirubin 0.7 AST 17 ALT 40 Alkaline Phosphatase 95 Troponin I Total Protein 4.4 L Albumin 2.1 L Globulin 2.3 Albumin/Globulin Ratio 0.9 L Arterial Blood Potassium 3.8 Radiology Impressions: Radiology Impressions Chest X-Ray 04/03/18 06:00 IMPRESSION: There is no change in the pattern of the right-sided pneumothorax. Two chest tubes are seen in place. Critical Care Progress Note - Nutrition Nutrition: Nutrition Category Date Time Status Dysphagia/Modified Consistency Diet [DIET] Diets 04/02/18 Dinner Ordered Attending/Attestation - Attestation I have personally seen and examined this patient.: Yes I have fully participated in the care of the patient.: Yes I have reviewed all pertinent clinical information: Yes Notes (Text): 04/03/18 15:24 67 yo with stage IV lungs CA/advanced COPD who was recently admitted to ICU for postop respiratory failure after VATS and unsuccessful attempt to expand "trapped" lung> patient was extubated yesterday and did well overnight. alert awake and oriented x 3, didnt want bpap overnight even though. continue abx, steroids, nebs. pulm toilet, pain control, oob to chair, IS, chest PT, bpap at night. dvt/gi prophylaxis.
--- NOTE | 2018-04-03 12:24 | CP.PCM.PN ---
Subjective - Date & Time of Evaluation Date of Evaluation: 04/03/18 Time of Evaluation: 12:17 - Subjective Subjective: PGY-2 heme/onc progress note for Dr Vaughn No acute events noted overnight. Patient seen with daughter at bedside. He stated he was doing "well". Complained of increased swelling in his arms bilaterally - stated he's been trying to elevate his arms however it causes him pain. Right chest tube draining matthew fluid. No rhinitis, cough, sob, abdominal pain, n/v, d/c noted. Objective - Vital Signs/Intake and Output Vital Signs (last 24 hours): Temp Pulse Resp BP Pulse Ox 97.4 F L 90 10 L 92/48 L 97 04/01/18 16:50 04/03/18 09:22 04/03/18 01:00 04/03/18 07:58 04/03/18 01:00 Intake and Output: 04/03/18 04/03/18 06:59 18:59 Intake Total 50 Output Total 550 Balance -500 - Medications Medications: Current Medications Acetylcysteine (Acetylcysteine 20%) 4 ml IH BIDRESP [facility] Last Admin: 04/03/18 07:43 Dose: 4 ml Aspirin (Ecotrin) 81 mg PO DAILY [facility] Last Admin: 04/03/18 10:35 Dose: 81 mg Atorvastatin Calcium (Lipitor) 80 mg PO DIN [facility] Last Admin: 04/02/18 20:01 Dose: Not Given Benzonatate (Tessalon Perles) 100 mg PO TID [facility] Last Admin: 04/03/18 10:35 Dose: 100 mg Budesonide (Pulmicort Respules) 0.5 mg IH [id number] [facility] Last Admin: 04/03/18 07:43 Dose: 0.5 mg Carbamide Peroxide (Debrox Ear Drops) 0 ml AU BID [facility] Last Admin: 04/02/18 18:00 Dose: 5 drop Docusate Sodium (Colace) 100 mg PO BID [facility] Enoxaparin Sodium (Lovenox) 40 mg SC DAILY [facility]; Protocol Last Admin: 04/03/18 10:34 Dose: 40 mg Fluoxetine HCl (Prozac) 10 mg PO DAILY [facility] Last Admin: 04/03/18 10:35 Dose: 10 mg Dextrose/Sodium Chloride (Dextrose 5%/0.45% Ns 1000 Ml) 1,000 mls @ 50 mls/hr IV .Q20H [facility] Last Admin: 04/01/18 11:43 Dose: 50 mls/hr Levalbuterol HCl (Xopenex) 0.63 mg IH TIDRESP [facility] Last Admin: 04/03/18 07:43 Dose: 0.63 mg Lidocaine (Lidoderm) 1 ea TD DAILY [facility] Lorazepam (Ativan) 0.5 mg PO TID PRN; Protocol PRN Reason: Anxiety Last Admin: 03/31/18 16:36 Dose: 0.5 mg Metoprolol Tartrate (Lopressor) 25 mg PO BRKDIN [facility] Last Admin: 04/03/18 07:58 Dose: 25 mg Metoprolol Tartrate (Lopressor) 5 mg IVP Q6H PRN PRN Reason: Systolic Blood Pressure Oxycodone HCl (Oxycodone Immediate Release Tab) 30 mg PO Q6H PRN PRN Reason: Pain, moderate (4-7) Pantoprazole Sodium (Protonix Ec Tab) 40 mg PO ACB [facility] Last Admin: 04/03/18 07:57 Dose: 40 mg Petrolatum (Desitin Maximum Strength Topical 40% Oint) 0 gm TOP Q4H PRN PRN Reason: Rash Last Admin: 04/02/18 11:31 Dose: 40 tub Polyethylene Glycol (Miralax) 17 gm PO BID [facility] Last Admin: 04/02/18 20:01 Dose: Not Given Prednisone (Prednisone Tab) 15 mg PO DAILY [facility] Last Admin: 04/03/18 10:35 Dose: 15 mg Tamsulosin HCl (Flomax) 0.4 mg PO DAILY [facility] Last Admin: 04/03/18 10:35 Dose: 0.4 mg - Labs Labs: 04/03/18 05:30 04/03/18 05:30 PT 13.7 SECONDS (9.4-12.5) H 04/01/18 05:36 INR 1.19 04/01/18 05:36 APTT 54.8 Seconds (26.9-38.3) H 04/02/18 08:00 - Additional Findings Additional findings: - Constitutional Appears: Non-toxic, No Acute Distress, Chronically Ill - Head Exam Head Exam: ATRAUMATIC, NORMAL INSPECTION - Eye Exam Eye Exam: EOMI, Normal appearance, PERRL - ENT Exam ENT Exam: Mucous Membranes Moist - Neck Exam Neck Exam: Full ROM - Respiratory Exam Respiratory Exam: Decreased Breath Sounds, Rales b/l, NORMAL BREATHING PATTERN - Cardiovascular Exam Cardiovascular Exam: REGULAR RHYTHM, +S1, +S2. absent: Bradycardia, Tachyca rdia, Murmur - GI/Abdominal Exam GI & Abdominal Exam: Soft, Normal Bowel Sounds. absent: Tenderness - Extremities Exam Extremities Exam: Full ROM, Normal Capillary Refill, Normal Inspection, edema in legs 2+, left elbow edematous compared to right - Neurological Exam Neurological Exam: Alert, Awake - Psychiatric Exam Psychiatric exam: Normal Affect, Normal Mood - Skin Skin Exam: Dry, Intact, Normal Color, Warm, right flank covered in dressing with chest tube in place draining matthew fluid Assessment and Plan - Assessment and Plan (Free Text) Plan: Mr. Lambert is a 67 y/o ruben with stage IV NSCLC with hepatic mets s/p RFA currently admitted with recurrent right pleural effusion: Stage IV NSCLC c/b right sided multi-loculated hydro-pneumothorax -s/p RFA - cancer appears to be confined to right side of lung and dome of diaphragm of liver - recent PET scan does not show distant metastasis -recurrent right pleural effusion thought to be malignant potentially vs infectious (cytology pending) * s/p thoracentesis 03/13/18 with 1.9L removed * pleural fluid cytology 03/14/18: rare atypical cells; due to paucity of cells further workup is not possible * pleural fluid cytology 03/18/18: positive for malignant cells -chest tube right pleural space placed 03/18/18 -> chest tube removed 03/25/18 -> the site was sutured given there was a leak * convert to pleurX catheter when output stable and right lung re-expands * it should be noted that lung expansion difficult due to tumor burden compressing right main stem bronchus * tentative plan is for pleurX catheter placement with Dr Izquierdo - dependent on discussion between Dr Izquierdo and family/patient * Patient is now agreeable to Aspira catheter HOWEVER Dr Izquierdo evaluated ultrasound and deemed there is not enough fluid to warrant a pleurX catheter -Surgery consulted 03/27/18 for failed pleurX catheter placement -> insufficient fluid to warrant placement * VATs 04/01/[address] Trinidad Surgical Attending * 1. Left Radial Arterial line placement. 2. Right VATS (Video Assisted Thorascopic Surgery). 3. Evacuation of Right Pleural fluid (1Liter). 4. Right Chest tube placement. 5. Right Inspira Catheter placement. 6. Right Pleural Biopsy * Right fibrotic lung, trapped. Unable to re-expand * f/u fluid cytology, f/u tissue pathology * patient transferred to ICU post VATs for closer monitoring -there is no endotracheal disease or endoluminal disease as per discussed between Dr Vaughn and Dr Trinidad -He received Pembrolizumab ~ 1.5 months ago - Dr Vaughn to speak to family regarding therapy going forward - possibly pembrolizumab + abraxane -continue bronchial toilet, bronchodilators, gastric and deep vein thrombosis prophylaxis -patient indicated he wants all treatment available Left Elbow Swelling -Duplex of left extremity 03/22/18 was negative for DVT -continue lovenox 40mg sc qd Seen and discussed with Dr Vaughn
[2018-04-03 12:57] LABS: ARTERIAL BLOOD GAS HCO3 24.9 mmol/L (21-28); ARTERIAL BLOOD GAS O2 SAT 98.6 % (95-98); ARTERIAL BLOOD GAS PCO2 44 mm/Hg (35-45); ARTERIAL BLOOD GAS PH 7.36 (7.35-7.45); ARTERIAL BLOOD GAS TCO2 26.3 mmol.L (22-28)
[2018-04-03] MEDS: Lidocaine 5% Patch TD SCH (13:26)
--- NOTE | 2018-04-03 13:30 | PN ---
DATE: 04/03/2018 PULMONARY PROGRESS NOTE REFERRING PHYSICIAN: Fred Sidhu MD SUBJECTIVE: The patient is lying in bed with BiPAP in place, asleep, but arousable and verbal. Reports feeling okay today. Daughter is at bedside. No headache, rhinitis, cough, shortness of breath, chest pain, abdominal pain, nausea, vomiting, diarrhea or leg pain reported at this time. PHYSICAL EXAMINATION GENERAL: No acute distress. VITAL SIGNS: Blood pressure 92/48, pulse 104 and oxygen saturation 99%. HEENT: Moist mucous membranes. NECK: Supple. No JVD. LUNGS: Decreased breath sounds on the right. Right chest tube noted, draining fluids. No air leak noted. CARDIOVASCULAR: S1 and S2 tachycardic. ABDOMEN: Soft and nontender. No distension. No organomegaly. EXTREMITIES: Bilateral lower extremity edema. Slightly improving bilateral upper extremity edema. NEUROLOGIC: Asleep, but arousable. The patient was verbal. MEDICATIONS: Reviewed. Mucomyst 4 mL inhalation twice a day, aspirin 81 mg daily, Lipitor 80 mg at dinner, Tessalon Perles 100 mg 3 times a day, Pulmicort 0.5 mg inhalation mg every 12 hours, Debrox twice a day, dextrose 1000 mL at 50 mL per hour, Colace 100 mg twice a day, Lovenox 40 mg subcutaneous daily, Prozac 10 mg daily, Xopenex 0.63 mg inhalation 3 times a day, Lidoderm patch transdermal daily at affected area, Ativan 0.5 mg 3 times a day p.r.n., metoprolol tartrate 25 mg at breakfast, metoprolol tartrate 5 mg IV push every 6 hours p.r.n., oxycodone 30 mg every 6 hours p.r.n., Protonix 40 mg morning, Desitin topically every 4 hours p.r.n. to affected area, MiraLax 17 g twice a day, prednisone 15 mg p.o. daily and Flomax 0.4 mg daily. LABORATORY DATA: Reviewed. WBC 8.1, RBC 3.09, hemoglobin 8.4, hematocrit 27.4, and platelets 103. PCO2 of 55, pO2 of 130, HCO3 of 24.7 and ABG pH 7.26. Sodium 135, potassium 4.1, chloride 107, carbon dioxide 25, anion gap 7, BUN 24, creatinine 0.9, GFR greater than 60, random glucose 85, calcium 7.6, phosphorus 3.0, magnesium 2.0. Total bilirubin 0.7, AST 17, ALT 40, alkaline phosphatase 95, total protein 4.4, albumin 2.1, globulin 2.3 and albumin-globulin ratio 0.9. MRSA culture of the nares final, MRSA not detected. Pleural fluid, no growth after 24 hours. Chest x-ray shows no change in pattern of the right-sided pneumothorax. Two chest tubes seen in place. 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 Continue inhaled bronchodilators, continue steroids, pain management, gastric prophylaxis, deep venous thrombosis prophylaxis. Careful with sedatives. We will ordered bilevel positive airway pressure to be removed, place the patient oxygen at 1 liter via nasal cannula to titrate the pulse oxygenation about 90 or greater. We will ordered for ABG's to be done at 1 p.m. We will ordered palliative care consults to review goals of care. We will order; ABG, CBC, CMP, chest x-ray in the morning. I was spoke with nurse regarding patient and informed her of current plan. Critical care time spent more than 35 minutes. This patient is seen and examined with Dr. Read. Discussed assessment and plan as described above. Thank you for this consult. We will follow with you. Mark Luke APN Fred Read MD [facility]
--- NOTE | 2018-04-03 13:59 | CP.PCM.APN ---
Subjective - Date & Time of Evaluation Date of Evaluation: 04/03/18 Time of Evaluation: 14:00 - Subjective Subjective: pt seenannd examined at bedside. pt awaiitng transfer to tele pt sttes he wants to go home... pt states he is "unsure of how he feels" feels today pt in NAD Review of Systems - Review of Systems All systems: reviewed and no additional remarkable complaints except Objective - Vital Signs/Intake and Output Vital Signs (last 24 hours): Temp Pulse Resp BP Pulse Ox 97.4 F L 90 10 L 92/48 L 97 04/01/18 16:50 04/03/18 09:22 04/03/18 01:00 04/03/18 07:58 04/03/18 01:00 Intake and Output: 04/03/18 04/03/18 06:59 18:59 Intake Total 50 Output Total 550 Balance -500 - Medications Medications: Current Medications Acetylcysteine (Acetylcysteine 20%) 4 ml IH BIDRESP [facility] Last Admin: 04/03/18 07:43 Dose: 4 ml Aspirin (Ecotrin) 81 mg PO DAILY [facility] Last Admin: 04/03/18 10:35 Dose: 81 mg Atorvastatin Calcium (Lipitor) 80 mg PO DIN [facility] Last Admin: 04/02/18 20:01 Dose: Not Given Benzonatate (Tessalon Perles) 100 mg PO TID [facility] Last Admin: 04/03/18 10:35 Dose: 100 mg Budesonide (Pulmicort Respules) 0.5 mg IH [id number] [facility] Last Admin: 04/03/18 07:43 Dose: 0.5 mg Carbamide Peroxide (Debrox Ear Drops) 0 ml AU BID [facility] Last Admin: 04/03/18 13:20 Dose: 1 drop Docusate Sodium (Colace) 100 mg PO BID [facility] Last Admin: 04/03/18 13:26 Dose: 100 mg Enoxaparin Sodium (Lovenox) 40 mg SC DAILY [facility]; Protocol Last Admin: 04/03/18 13:21 Dose: 40 mg Fluoxetine HCl (Prozac) 10 mg PO DAILY [facility] Last Admin: 04/03/18 10:35 Dose: 10 mg Dextrose/Sodium Chloride (Dextrose 5%/0.45% Ns 1000 Ml) 1,000 mls @ 50 mls/hr IV .Q20H [facility] Last Admin: 04/01/18 11:43 Dose: 50 mls/hr Levalbuterol HCl (Xopenex) 0.63 mg IH TIDRESP [facility] Last Admin: 04/03/18 13:08 Dose: 0.63 mg Lidocaine (Lidoderm) 1 ea TD DAILY [facility] Last Admin: 04/03/18 13:26 Dose: 1 ea Lorazepam (Ativan) 0.5 mg PO TID PRN; Protocol PRN Reason: Anxiety Last Admin: 03/31/18 16:36 Dose: 0.5 mg Metoprolol Tartrate (Lopressor) 25 mg PO BRKDIN [facility] Last Admin: 04/03/18 07:58 Dose: 25 mg Metoprolol Tartrate (Lopressor) 5 mg IVP Q6H PRN PRN Reason: Systolic Blood Pressure Oxycodone HCl (Oxycodone Immediate Release Tab) 30 mg PO Q6H PRN PRN Reason: Pain, moderate (4-7) Pantoprazole Sodium (Protonix Ec Tab) 40 mg PO ACB [facility] Last Admin: 04/03/18 07:57 Dose: 40 mg Petrolatum (Desitin Maximum Strength Topical 40% Oint) 0 gm TOP Q4H PRN PRN Reason: Rash Last Admin: 04/02/18 11:31 Dose: 40 tub Polyethylene Glycol (Miralax) 17 gm PO BID [facility] Last Admin: 04/02/18 20:01 Dose: Not Given Prednisone (Prednisone Tab) 15 mg PO DAILY [facility] Last Admin: 04/03/18 10:35 Dose: 15 mg Tamsulosin HCl (Flomax) 0.4 mg PO DAILY [facility] Last Admin: 04/03/18 10:35 Dose: 0.4 mg - Labs Labs: 04/03/18 05:30 04/03/18 05:30 PT 13.7 SECONDS (9.4-12.5) H 04/01/18 05:36 INR 1.19 04/01/18 05:36 APTT 54.8 Seconds (26.9-38.3) H 04/02/18 08:00 - Constitutional Appears: No Acute Distress, Chronically Ill - Eye Exam Eye Exam: Normal appearance - Respiratory Exam Respiratory Exam: NORMAL BREATHING PATTERN Additional comments: right chest tube in place draining serous fluid - Cardiovascular Exam Cardiovascular Exam: +S1, +S2 - GI/Abdominal Exam GI & Abdominal Exam: Soft, Normal Bowel Sounds - Extremities Exam Extremities Exam: Normal Capillary Refill - Neurological Exam Neurological Exam: Alert, Awake, Oriented x3 - Skin Skin Exam: Dry, Intact, Normal Color Additional comments: generalized edema bilateral upper extremeties Assessment and Plan - Assessment and Plan (Free Text) Plan: 67 yr old male with pmh sig for stage Iv lung ca with mets to liver and bone admitted to the ICU for mgmt after presenting to the ED with worsening SOB and hypoxic resp failure, sepsis and new onset chf , right lung white out and pleural effusion pt s/p thoracentesis and right chest tube with cardiac, renal, pul and oncology consultations #sepsis/right lung pne s/p iv antibiotic, stable ID recs noted #stage IV metastatic cancer Oncology note rev'd and recommendations noted #right pleural effusion s/p thoracentesis and now s/p right chest tube removal 03/25. ct shows large hydropneunothorax , pt is s/p VATS with unsuccessful attempt for pleurex.. pt developed resp failure post procedure with St elevation on ekg... pt was intubated and is now extubated with BIPAP in place and right chest tube in place. pt is awaiting transfer to telemetry unit with Right chest tube in place will continue to monitor
[2018-04-03] MEDS: POLYETHYLENE GLYCOL 3350 17 GM/Dose PACKET PO SCH (17:13)
[2018-04-03 17:21] VITALS: O2SAT 96
[2018-04-03] MEDS: Dextrose 5%/0.45% NS 1,000 ML IV SCH (22:46)
[2018-04-04] MEDS ORDERED: Sodium Chloride 0.9% 500 ML IV STA (01:29)
[2018-04-04 07:17] LABS: HEMOGLOBIN 7.3 g/dL (14.0-18.0); MEAN CELL VOLUME 88.5 fl (80.0-105.0); MEAN CORPUSCULAR HEMOGLOBIN 27.1 pg (25.0-35.0); MEAN CORPUSCULAR HGB CONC 30.7 g/dl (31.0-37.0); MEAN PLATELET VOLUME 10.2 fl (7.0-11.0); RBC 2.69 10^6/uL (3.5-6.1); RED CELL DISTRIBUTION WIDTH 19.5 % (11.5-14.5); WHITE BLOOD COUNT 4.1 10^3/uL (4.5-11.0)
[2018-04-04 07:36] LABS: ALBUMIN 1.9 g/dL (3.0-4.8); ALT/SGPT 59 U/L (7-56); AST/SGOT 31 U/L (17-59); BLOOD UREA NITROGEN 19 mg/dL (7-21); GFR NON-AFRICAN AMERICAN > 60
--- NOTE | 2018-04-04 07:48 | CP.PCM.PN ---
Subjective - Date & Time of Evaluation Date of Evaluation: 04/04/18 Time of Evaluation: 07:46 - Subjective Subjective: PGY-2 heme/onc progress note for Dr Vaughn Bladder scan showed 460cc yesterday evening however patient able to urinate by himself. Stated his pain was controlled. Extremities elevated with blankets and pillows. Denied sob, cp, f/c, n/v. Objective - Vital Signs/Intake and Output Vital Signs (last 24 hours): Temp Pulse Resp BP Pulse Ox 99.1 F 89 20 94/52 L 96 04/04/18 06:00 04/04/18 06:00 04/04/18 06:00 04/04/18 06:00 04/04/18 00:01 Intake and Output: 04/04/18 04/04/18 06:59 18:59 Intake Total 900 Output Total 1150 Balance -250 - Medications Medications: Current Medications Acetylcysteine (Acetylcysteine 20%) 4 ml IH BIDRESP [facility] Last Admin: 04/03/18 20:45 Dose: 4 ml Aspirin (Ecotrin) 81 mg PO DAILY [facility] Last Admin: 04/03/18 10:35 Dose: 81 mg Atorvastatin Calcium (Lipitor) 80 mg PO DIN [facility] Last Admin: 04/03/18 17:14 Dose: Not Given Benzonatate (Tessalon Perles) 100 mg PO TID [facility] Last Admin: 04/03/18 17:08 Dose: 100 mg Budesonide (Pulmicort Respules) 0.5 mg IH [id number] [facility] Last Admin: 04/03/18 20:45 Dose: 0.5 mg Carbamide Peroxide (Debrox Ear Drops) 0 ml AU BID [facility] Last Admin: 04/03/18 17:13 Dose: 5 drop Docusate Sodium (Colace) 100 mg PO BID [facility] Last Admin: 04/03/18 17:14 Dose: Not Given Enoxaparin Sodium (Lovenox) 40 mg SC DAILY [facility]; Protocol Last Admin: 04/03/18 13:21 Dose: 40 mg Fluoxetine HCl (Prozac) 10 mg PO DAILY [facility] Last Admin: 04/03/18 10:35 Dose: 10 mg Dextrose/Sodium Chloride (Dextrose 5%/0.45% Ns 1000 Ml) 1,000 mls @ 50 mls/hr IV .Q20H [facility] Last Admin: 04/03/18 22:46 Dose: 50 mls/hr Levalbuterol HCl (Xopenex) 0.63 mg IH TIDRESP [facility] Last Admin: 04/03/18 20:45 Dose: 0.63 mg Lidocaine (Lidoderm) 1 ea TD DAILY [facility] Last Admin: 04/03/18 13:26 Dose: 1 ea Lorazepam (Ativan) 0.5 mg PO TID PRN; Protocol PRN Reason: Anxiety Last Admin: 03/31/18 16:36 Dose: 0.5 mg Metoprolol Tartrate (Lopressor) 25 mg PO BRKDIN [facility] Last Admin: 04/03/18 17:08 Dose: 25 mg Metoprolol Tartrate (Lopressor) 5 mg IVP Q6H PRN PRN Reason: Systolic Blood Pressure Oxycodone HCl (Oxycodone Immediate Release Tab) 30 mg PO Q6H PRN PRN Reason: Pain, moderate (4-7) Last Admin: 04/03/18 17:07 Dose: 30 mg Pantoprazole Sodium (Protonix Ec Tab) 40 mg PO ACB [facility] Last Admin: 04/03/18 07:57 Dose: 40 mg Petrolatum (Desitin Maximum Strength Topical 40% Oint) 0 gm TOP Q4H PRN PRN Reason: Rash Last Admin: 04/02/18 11:31 Dose: 40 tub Polyethylene Glycol (Miralax) 17 gm PO BID [facility] Last Admin: 04/03/18 17:13 Dose: Not Given Prednisone (Prednisone Tab) 15 mg PO DAILY [facility] Last Admin: 04/03/18 10:35 Dose: 15 mg Tamsulosin HCl (Flomax) 0.4 mg PO DAILY [facility] Last Admin: 04/03/18 10:35 Dose: 0.4 mg - Labs Labs: 04/04/18 06:00 04/04/18 06:00 PT 13.7 SECONDS (9.4-12.5) H 04/01/18 05:36 INR 1.19 04/01/18 05:36 APTT 54.8 Seconds (26.9-38.3) H 04/02/18 08:00 - Additional Findings Additional findings: - Constitutional Appears: Non-toxic, No Acute Distress, Chronically Ill - Head Exam Head Exam: ATRAUMATIC, NORMAL INSPECTION - Eye Exam Eye Exam: EOMI, Normal appearance, PERRL - ENT Exam ENT Exam: Mucous Membranes Moist - Neck Exam Neck Exam: Full ROM - Respiratory Exam Respiratory Exam: Decreased Breath Sounds, Rales b/l, NORMAL BREATHING PATTERN - Cardiovascular Exam Cardiovascular Exam: REGULAR RHYTHM, +S1, +S2. absent: Bradycardia, Tachycardia, Murmur - GI/Abdominal Exam GI & Abdominal Exam: Soft, Normal Bowel Sounds. absent: Tenderness - Extremities Exam Extremities Exam: Full ROM, Normal Capillary Refill, Normal Inspection, edema in legs 2+, left elbow edematous compared to right - Neurological Exam Neurological Exam: Alert, Awake - Psychiatric Exam Psychiatric exam: Normal Affect, Normal Mood - Skin Skin Exam: Dry, Intact, Normal Color, Warm, right flank covered in dressing with chest tube in place draining matthew fluid Assessment and Plan - Assessment and Plan (Free Text) Plan: Mr. Lambert is a 67 y/o ruben with stage IV NSCLC with hepatic mets s/p RFA currently admitted with recurrent right pleural effusion: Stage IV NSCLC c/b right sided multi-loculated hydro-pneumothorax -s/p RFA - cancer appears to be confined to right side of lung and dome of diaphragm of liver - recent PET scan does not show distant metastasis -recurrent right pleural effusion thought to be malignant potentially vs infectious (cytology pending) * s/p thoracentesis 03/13/18 with 1.9L removed * pleural fluid cytology 03/14/18: rare atypical cells; due to paucity of cells further workup is not possible * pleural fluid cytology 03/18/18: positive for malignant cells -chest tube right pleural space placed 03/18/18 -> chest tube removed 03/25/18 -> the site was sutured given there was a leak * convert to pleurX catheter when output stable and right lung re-expands * it should be noted that lung expansion difficult due to tumor burden compressing right main stem bronchus * tentative plan is for pleurX catheter placement with Dr Izquierdo - dependent on discussion between Dr Izquierdo and family/patient * Patient is now agreeable to Aspira catheter HOWEVER Dr Izquierdo evaluated u ltrasound and deemed there is not enough fluid to warrant a pleurX catheter -Surgery consulted 03/27/18 for failed pleurX catheter placement -> insufficient fluid to warrant placement * VATs 04/01/[address] Trinidad Surgical Attending * 1. Left Radial Arterial line placement. 2. Right VATS (Video Assisted Thorascopic Surgery). 3. Evacuation of Right Pleural fluid (1Liter). 4. Right Chest tube placement. 5. Right Inspira Catheter placement. 6. Right Pleural Biopsy * Right fibrotic lung, trapped. Unable to re-expand * f/u fluid cytology, f/u tissue pathology * chest tube removal planned for 04/04/18 by surgical team -there is no endotracheal disease or endoluminal disease as per discussed between Dr Vaughn and Dr Trinidad -He received Pembrolizumab ~ 1.5 months ago - Dr Vaughn to speak to family regarding therapy going forward - possibly pembrolizumab + abraxane -continue bronchial toilet, bronchodilators, gastric and deep vein thrombosis prophylaxis -patient indicated he wants all treatment available Upper Extremity Edema Bilaterally -Duplex of left extremity 03/22/18 was negative for DVT -f/u thoracic outlet ultrasound evaluation and duplex of UE b/l -continue lovenox 40mg sc qd Seen and discussed with Dr Vaughn
--- NOTE | 2018-04-04 08:00 | CP.PCM.PN ---
Subjective - Date & Time of Evaluation Date of Evaluation: 04/04/18 Time of Evaluation: 07:57 - Subjective Subjective: Thoracic Surgery Progress note- Dr. Trinidad Patient seen and examined at bedside. On telemetry floor, states he is able to breath easier than before. Chest tube to water seal 300cc serous fluid, no air leak. Objective - Vital Signs/Intake and Output Vital Signs (last 24 hours): Temp Pulse Resp BP Pulse Ox 99.1 F 89 20 94/52 L 96 04/04/18 06:00 04/04/18 06:00 04/04/18 06:00 04/04/18 06:00 04/04/18 00:01 Intake and Output: 04/04/18 04/04/18 06:59 18:59 Intake Total 900 Output Total 1150 Balance -250 - Medications Medications: Current Medications Acetylcysteine (Acetylcysteine 20%) 4 ml IH BIDRESP [facility] Last Admin: 04/03/18 20:45 Dose: 4 ml Aspirin (Ecotrin) 81 mg PO DAILY [facility] Last Admin: 04/03/18 10:35 Dose: 81 mg Atorvastatin Calcium (Lipitor) 80 mg PO DIN [facility] Last Admin: 04/03/18 17:14 Dose: Not Given Benzonatate (Tessalon Perles) 100 mg PO TID [facility] Last Admin: 04/03/18 17:08 Dose: 100 mg Budesonide (Pulmicort Respules) 0.5 mg IH [id number] [facility] Last Admin: 04/03/18 20:45 Dose: 0.5 mg Carbamide Peroxide (Debrox Ear Drops) 0 ml AU BID [facility] Last Admin: 04/03/18 17:13 Dose: 5 drop Docusate Sodium (Colace) 100 mg PO BID [facility] Last Admin: 04/03/18 17:14 Dose: Not Given Enoxaparin Sodium (Lovenox) 40 mg SC DAILY [facility]; Protocol Last Admin: 04/03/18 13:21 Dose: 40 mg Fluoxetine HCl (Prozac) 10 mg PO DAILY [facility] Last Admin: 04/03/18 10:35 Dose: 10 mg Dextrose/Sodium Chloride (Dextrose 5%/0.45% Ns 1000 Ml) 1,000 mls @ 50 mls/hr IV .Q20H [facility] Last Admin: 04/03/18 22:46 Dose: 50 mls/hr Levalbuterol HCl (Xopenex) 0.63 mg IH TIDRESP [facility] Last Admin: 04/03/18 20:45 Dose: 0.63 mg Lidocaine (Lidoderm) 1 ea TD DAILY [facility] Last Admin: 04/03/18 13:26 Dose: 1 ea Lorazepam (Ativan) 0.5 mg PO TID PRN; Protocol PRN Reason: Anxiety Last Admin: 03/31/18 16:36 Dose: 0.5 mg Metoprolol Tartrate (Lopressor) 25 mg PO BRKDIN [facility] Last Admin: 04/03/18 17:08 Dose: 25 mg Metoprolol Tartrate (Lopressor) 5 mg IVP Q6H PRN PRN Reason: Systolic Blood Pressure Oxycodone HCl (Oxycodone Immediate Release Tab) 30 mg PO Q6H PRN PRN Reason: Pain, moderate (4-7) Last Admin: 04/03/18 17:07 Dose: 30 mg Pantoprazole Sodium (Protonix Ec Tab) 40 mg PO ACB [facility] Last Admin: 04/03/18 07:57 Dose: 40 mg Petrolatum (Desitin Maximum Strength Topical 40% Oint) 0 gm TOP Q4H PRN PRN Reason: Rash Last Admin: 04/02/18 11:31 Dose: 40 tub Polyethylene Glycol (Miralax) 17 gm PO BID [facility] Last Admin: 04/03/18 17:13 Dose: Not Given Prednisone (Prednisone Tab) 15 mg PO DAILY [facility] Last Admin: 04/03/18 10:35 Dose: 15 mg Tamsulosin HCl (Flomax) 0.4 mg PO DAILY [facility] Last Admin: 04/03/18 10:35 Dose: 0.4 mg - Labs Labs: 04/04/18 06:00 04/04/18 06:00 PT 13.7 SECONDS (9.4-12.5) H 04/01/18 05:36 INR 1.19 04/01/18 05:36 APTT 54.8 Seconds (26.9-38.3) H 04/02/18 08:00 - Constitutional Appears: Non-toxic, No Acute Distress - Head Exam Head Exam: ATRAUMATIC - Eye Exam Eye Exam: EOMI. absent: Scleral icterus - ENT Exam ENT Exam: Mucous Membranes Moist - Respiratory Exam Respiratory Exam: Decreased Breath Sounds, NORMAL BREATHING PATTERN. absent: Accessory Muscle Use, Respiratory Distress Additional comments: Chest tube to water seal, no air leak, 300cc serous fluid - GI/Abdominal Exam GI & Abdominal Exam: Soft. absent: Distended, Firm, Guarding, Rigid, Tenderness - Extremities Exam Extremities Exam: absent: Calf Tenderness - Neurological Exam Neurological Exam: Alert, Awake, Oriented x3 - Psychiatric Exam Psychiatric exam: Normal Affect - Skin Skin Exam: Intact, Warm Assessment and Plan - Assessment and Plan (Free Text) Assessment: 67M w/ stage 4 lung Ca, s/p VATS chest tube and plurex cathter placement POD# 3 Plan: - f/u AM CXR - plan for Chest tube removal today - reinforce dressing - will continue to follow - no further acute surgical intervention at this time - continued medical management per primary team - further recs per Dr. Vivi Alvarez PGY2
[2018-04-04] MEDS: Acetylcysteine 20% Inhal Soln (4ml) IH SCH (08:12)
[2018-04-04] MEDS: Levalbuterol 0.63 MG/3 ML Inhal Soln UD IH SCH ×2 (08:12→13:39)
[2018-04-04] MEDS: Budesonide 0.5 mg/2 ml Inhal Susp UD IH SCH (08:12)
[2018-04-04] MEDS ORDERED: Magnesium Sulfate 1 gm in D5W 1 GM/100 ML BAG IVPB ONE (09:15)
[2018-04-04] MEDS: POLYETHYLENE GLYCOL 3350 17 GM/Dose PACKET PO SCH (10:06)
[2018-04-04] MEDS: Lidocaine 5% Patch TD SCH (10:06)
[2018-04-04] MEDS: Enoxaparin 40 mg Syringe SC SCH (10:06)
[2018-04-04] MEDS: Pantoprazole 40 mg EC Tab PO SCH (10:08)
--- NOTE | 2018-04-04 10:19 | RAD ---
Date of service: 04/04/2018 HISTORY: s/p VATS and chest tube placement COMPARISON: 04/03/2018 FINDINGS: LUNGS: There is no change in the pattern of pneumothorax on the right. Two chest tubes are seen in place PLEURA: No significant pleural effusion identified, no pneumothorax apparent. CARDIOVASCULAR: No aortic atherosclerotic calcification present. Normal cardiac size. No pulmonary vascular congestion. OSSEOUS STRUCTURES: No significant abnormalities. VISUALIZED UPPER ABDOMEN: Normal. OTHER FINDINGS: None. IMPRESSION: There is no change in the pattern of pneumothorax on the right. Two chest tubes are seen in place
[2018-04-04 10:30] LABS: HEMOGLOBIN 7.6 g/dL (14.0-18.0); MEAN CELL VOLUME 88.3 fl (80.0-105.0); MEAN CORPUSCULAR HEMOGLOBIN 27.7 pg (25.0-35.0); MEAN CORPUSCULAR HGB CONC 31.4 g/dl (31.0-37.0); MEAN PLATELET VOLUME 9.8 fl (7.0-11.0); RBC 2.74 10^6/uL (3.5-6.1); RED CELL DISTRIBUTION WIDTH 19.4 % (11.5-14.5); WHITE BLOOD COUNT 4.9 10^3/uL (4.5-11.0)
--- NOTE | 2018-04-04 11:28 | CP.PCM.APN ---
Subjective - Date & Time of Evaluation Date of Evaluation: 04/04/18 Time of Evaluation: 10:30 - Subjective Subjective: pt seen and examined at bedside pt reports being cold per nursing staff pt refused blood transfusion and removal of chest tube per discussion with resident - pt refused LTACH Review of Systems - Review of Systems All systems: reviewed and no additional remarkable complaints except Objective - Vital Signs/Intake and Output Vital Signs (last 24 hours): Temp Pulse Resp BP Pulse Ox 99.1 F 89 20 94/52 L 96 04/04/18 06:00 04/04/18 06:00 04/04/18 06:00 04/04/18 06:00 04/04/18 00:01 Intake and Output: 04/04/18 04/04/18 06:59 18:59 Intake Total 900 Output Total 1150 Balance -250 - Medications Medications: Current Medications Acetylcysteine (Acetylcysteine 20%) 4 ml IH BIDRESP [facility] Last Admin: 04/04/18 08:12 Dose: 4 ml Aspirin (Ecotrin) 81 mg PO DAILY [facility] Last Admin: 04/04/18 10:06 Dose: Not Given Atorvastatin Calcium (Lipitor) 80 mg PO DIN [facility] Last Admin: 04/03/18 17:14 Dose: Not Given Benzonatate (Tessalon Perles) 100 mg PO TID [facility] Last Admin: 04/04/18 10:08 Dose: Not Given Budesonide (Pulmicort Respules) 0.5 mg IH [id number] [facility] Last Admin: 04/04/18 08:12 Dose: 0.5 mg Carbamide Peroxide (Debrox Ear Drops) 0 ml AU BID [facility] Last Admin: 04/04/18 10:06 Dose: Not Given Docusate Sodium (Colace) 100 mg PO BID [facility] Last Admin: 04/04/18 10:05 Dose: Not Given Enoxaparin Sodium (Lovenox) 40 mg SC DAILY [facility]; Protocol Last Admin: 04/04/18 10:06 Dose: Not Given Fluoxetine HCl (Prozac) 10 mg PO DAILY [facility] Last Admin: 04/04/18 10:08 Dose: Not Given Dextrose/Sodium Chloride (Dextrose 5%/0.45% Ns 1000 Ml) 1,000 mls @ 50 mls/hr IV .Q20H [facility] Last Admin: 04/03/18 22:46 Dose: 50 mls/hr Levalbuterol HCl (Xopenex) 0.63 mg IH TIDRESP [facility] Last Admin: 04/04/18 08:12 Dose: 0.63 mg Lidocaine (Lidoderm) 1 ea TD DAILY [facility] Last Admin: 04/04/18 10:06 Dose: Not Given Lorazepam (Ativan) 0.5 mg PO TID PRN; Protocol PRN Reason: Anxiety Last Admin: 03/31/18 16:36 Dose: 0.5 mg Metoprolol Tartrate (Lopressor) 25 mg PO BRKDIN [facility] Last Admin: 04/04/18 08:10 Dose: Not Given Metoprolol Tartrate (Lopressor) 5 mg IVP Q6H PRN PRN Reason: Systolic Blood Pressure Oxycodone HCl (Oxycodone Immediate Release Tab) 30 mg PO Q6H PRN PRN Reason: Pain, moderate (4-7) Last Admin: 04/03/18 17:07 Dose: 30 mg Pantoprazole Sodium (Protonix Ec Tab) 40 mg PO ACB [facility] Last Admin: 04/04/18 10:08 Dose: Not Given Petrolatum (Desitin Maximum Strength Topical 40% Oint) 0 gm TOP Q4H PRN PRN Reason: Rash Last Admin: 04/02/18 11:31 Dose: 40 tub Polyethylene Glycol (Miralax) 17 gm PO BID [facility] Last Admin: 04/04/18 10:06 Dose: Not Given Prednisone (Prednisone Tab) 15 mg PO DAILY [facility] Last Admin: 04/04/18 10:07 Dose: Not Given Tamsulosin HCl (Flomax) 0.4 mg PO DAILY [facility] Last Admin: 04/04/18 10:06 Dose: Not Given - Labs Labs: 04/04/18 10:20 04/04/18 06:00 PT 13.7 SECONDS (9.4-12.5) H 04/01/18 05:36 INR 1.19 04/01/18 05:36 APTT 54.8 Seconds (26.9-38.3) H 04/02/18 08:00 - Constitutional Appears: No Acute Distress, Chronically Ill - Head Exam Head Exam: NORMAL INSPECTION - Eye Exam Eye Exam: Normal appearance - ENT Exam ENT Exam: Mucous Membranes Moist - Respiratory Exam Respiratory Exam: Decreased Breath Sounds, NORMAL BREATHING PATTERN Additional comments: right chest tube intact draining serosanginous fluid - Cardiovascular Exam Cardiovascular Exam: +S1, +S2 - GI/Abdominal Exam GI & Abdominal Exam: Soft, Normal Bowel Sounds - Psychiatric Exam Psychiatric exam: Flat Affect - Skin Skin Exam: Dry, Intact Assessment and Plan - Assessment and Plan (Free Text) Plan: 67 yr old male with pmh sig for stage Iv lung ca with mets to liver and bone admitted to the ICU for mgmt after presenting to the ED with worsening SOB and hypoxic resp failure, sepsis and new onset chf , right lung white out and pleural effusion pt s/p thoracentesis and right chest tube with cardiac, renal, pul and oncology consultations #sepsis/right lung pne s/p iv antibiotic, stable ID recs noted #stage IV metastatic cancer Oncology note rev'd and recommendations noted #right pleural effusion s/p thoracentesis and now s/p right chest tube removal 03/25. pt is s/p VATS with unsuccessful attempt for pleurex.. pt developed resp failure post procedure with St elevation on ekg... pt was intubated and is now extubated with BIPAP in place and right chest tube in place. pt with drop in h/h - refused blood transfusion pt refused chest tube removal from surgical team pt refused transfer to LTACH per discussion with medical team Info relayed to will continue to monitor Nina Lyons APN BPCI/TIC - BPCIA/TIC Educated pt/family on BPCIA/CIR/Med to Bed Programs: N/A Flyers given, including [facility] Beneficiary letter: N/A Pt/family verbalized understanding & agreed to program: N/A
[2018-04-04 12:07] VITALS: BP 116/72; RESP 18; TEMP 97.8
--- NOTE | 2018-04-04 12:24 | PN ---
DATE: 04/04/2018 PULMONARY PROGRESS NOTE REFERRING PHYSICIAN: Fred Sidhu MD SUBJECTIVE: The patient is lying in bed, daughter at bedside. No acute distress. The patient just reports feeling tired this morning, states he did not get any sleep last night due to frequent disruption in and out of his room. Daughter and nursing staff reports that the patient refused to have chest tube remove today, refuse to have blood transfusion done today. No headache, rhinitis, chest pain, abdominal pain, nausea, vomiting, diarrhea, leg pain or leg swelling reported. OBJECTIVE GENERAL: No acute distress. VITAL SIGNS: Blood pressure 94/52, pulse 91, temperature 99.1, and oxygen saturation 96% on nasal cannula. HEENT: Moist mucous membranes. NECK: Supple. No JVD. LUNGS: Decreased breath sounds on the right. Right chest tube noted draining fluids. No air leak noted. CARDIOVASCULAR: S1 and S2 tachycardic. ABDOMEN: Soft and nontender. No distension. No organomegaly. EXTREMITIES: Bilateral lower extremity edema. Slightly improving. NEUROLOGIC: Awake, alert and verbal. Follows commands. MEDICATIONS: Reviewed. Mucomyst 4 mL inhalation twice a day, aspirin 81 mg daily, Lipitor 80 mg at dinner, Tessalon Perles 100 mg 3 times a day, Pulmicort 0.5 mg every 12 hours, Debrox twice a day, Dextrose/sodium chloride 1000 mL at 50 mL per hour, Colace 100 mg twice a day, Lovenox 40 mg daily, Prozac 10 mg daily, Xopenex 0.63 mg inhalation 3 times a day, Lidoderm patch transdermal daily, Ativan 0.5 mg 3 times a day p.r.n., Lopressor 25 mg at breakfast, metoprolol tartrate 5 mg IV push every 6 hours p.r.n., oxycodone 30 mg every 6 hours p.r.n., Protonix 40 mg in the morning, Desitin topically every 4 hours p.r.n. to affected area, MiraLax 17 g twice a day, prednisone 15 mg daily and Flomax 0.4 mg daily. LABORATORY DATA: Reviewed. WBC 4.9, RBC 2.74, hemoglobin 7.3 improved to 7.6, hematocrit 24.2, and platelets 73. Sodium 133, potassium 3.9, chloride 105, carbon dioxide 28, anion gap 4, BUN 19, creatinine 0.8, GFR greater than 60, random glucose 102, calcium 7, phosphorus 2.3, magnesium 1.8, total bilirubin 0.5, AST 31, ALT 59, alkaline phosphatase 97, total protein 3.9, albumin 1.9, globulin 2.0 and albumin-globulin ratio 1.0. Chest x-ray there is no change in pattern of pneumothorax in the right, two chest tubes in place. 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 Case discussed in depth with the patient. Discussed needs for blood transfusion. Discussed chest tube removal, the patient continues to refuse; although, he verbalized understanding, stated he does not want chest tube or blood transfusion done today. Continue inhaled bronchodilators, steroids, pain management, gastric prophylaxis, deep venous thrombosis prophylaxis. Careful with sedation. We recommend, the patient will benefit from physical therapy. Recommend psychiatry consult for adjustment disorder. This patient is seen and examined with Dr. Read. Discussed assessment and plan as described above. Thank you for this consult and we will follow with you. Mark Luke APN Fred Read MD
[2018-04-04] MEDS: oxyCODONE 30 mg Immediate Release Tab PO PRN (12:45)
--- NOTE | 2018-04-04 13:24 | CP.PCM.PN ---
Subjective - Date & Time of Evaluation Date of Evaluation: 04/04/18 Time of Evaluation: 09:30 - Subjective Subjective: Patient still with chest tube, feels tired, no fevers overnight. Objective - Vital Signs/Intake and Output Vital Signs (last 24 hours): Temp Pulse Resp BP Pulse Ox 97.8 F 95 H 18 116/72 96 04/04/18 12:00 04/04/18 12:00 04/04/18 12:00 04/04/18 12:00 04/04/18 00:01 Intake and Output: 04/04/18 04/04/18 06:59 18:59 Intake Total 900 Output Total 1150 Balance -250 - Medications Medications: Current Medications Acetylcysteine (Acetylcysteine 20%) 4 ml IH BIDRESP [facility] Last Admin: 04/04/18 08:12 Dose: 4 ml Aspirin (Ecotrin) 81 mg PO DAILY [facility] Last Admin: 04/04/18 10:06 Dose: Not Given Atorvastatin Calcium (Lipitor) 80 mg PO DIN [facility] Last Admin: 04/03/18 17:14 Dose: Not Given Benzonatate (Tessalon Perles) 100 mg PO TID [facility] Last Admin: 04/04/18 10:08 Dose: Not Given Budesonide (Pulmicort Respules) 0.5 mg IH [id number] [facility] Last Admin: 04/04/18 08:12 Dose: 0.5 mg Carbamide Peroxide (Debrox Ear Drops) 0 ml AU BID [facility] Last Admin: 04/04/18 10:06 Dose: Not Given Docusate Sodium (Colace) 100 mg PO BID [facility] Last Admin: 04/04/18 10:05 Dose: Not Given Enoxaparin Sodium (Lovenox) 40 mg SC DAILY [facility]; Protocol Last Admin: 04/04/18 10:06 Dose: Not Given Fluoxetine HCl (Prozac) 10 mg PO DAILY [facility] Last Admin: 04/04/18 10:08 Dose: Not Given Dextrose/Sodium Chloride (Dextrose 5%/0.45% Ns 1000 Ml) 1,000 mls @ 50 mls/hr IV .Q20H [facility] Last Admin: 04/03/18 22:46 Dose: 50 mls/hr Levalbuterol HCl (Xopenex) 0.63 mg IH TIDRESP [facility] Last Admin: 04/04/18 08:12 Dose: 0.63 mg Lidocaine (Lidoderm) 1 ea TD DAILY [facility] Last Admin: 04/04/18 10:06 Dose: Not Given Lorazepam (Ativan) 0.5 mg PO TID PRN; Protocol PRN Reason: Anxiety Last Admin: 03/31/18 16:36 Dose: 0.5 mg Metoprolol Tartrate (Lopressor) 25 mg PO BRKDIN [facility] Last Admin: 04/04/18 08:10 Dose: Not Given Metoprolol Tartrate (Lopressor) 5 mg IVP Q6H PRN PRN Reason: Systolic Blood Pressure Oxycodone HCl (Oxycodone Immediate Release Tab) 30 mg PO Q6H PRN PRN Reason: Pain, moderate (4-7) Last Admin: 04/04/18 12:45 Dose: 30 mg Pantoprazole Sodium (Protonix Ec Tab) 40 mg PO ACB [facility] Last Admin: 04/04/18 10:08 Dose: Not Given Petrolatum (Desitin Maximum Strength Topical 40% Oint) 0 gm TOP Q4H PRN PRN Reason: Rash Last Admin: 04/02/18 11:31 Dose: 40 tub Polyethylene Glycol (Miralax) 17 gm PO BID [facility] Last Admin: 04/04/18 10:06 Dose: Not Given Prednisone (Prednisone Tab) 15 mg PO DAILY [facility] Last Admin: 04/04/18 10:07 Dose: Not Given Tamsulosin HCl (Flomax) 0.4 mg PO DAILY [facility] Last Admin: 04/04/18 10:06 Dose: Not Given - Labs Labs: 04/04/18 10:20 04/04/18 06:00 PT 13.7 SECONDS (9.4-12.5) H 04/01/18 05:36 INR 1.19 04/01/18 05:36 APTT 54.8 Seconds (26.9-38.3) H 04/02/18 08:00 - Head Exam Head Exam: NORMAL INSPECTION Assessment and Plan - Assessment and Plan (Free Text) Plan: Assessment S/P severe sepsis with acute renal failure and VDRF due to right sided HCAP stage 4 lung cancer with mets to bone and liver S/P chest tube placement S/P port-a-cath placement HTN significant smoking history history of chronic alcohol use anxiety Plan continue to monitor off antibiotics since he is at risk for healthcare- associated infections
--- NOTE | 2018-04-04 14:25 | CP.PCM.PN ---
Subjective - Date & Time of Evaluation Date of Evaluation: 04/04/18 Time of Evaluation: 15:00 - Subjective Subjective: Alert, complains of pain right chest wall pain and left upper abdomen Objective - Vital Signs/Intake and Output Vital Signs (last 24 hours): Temp Pulse Resp BP Pulse Ox 97.8 F 95 H 18 116/72 96 04/04/18 12:00 04/04/18 12:00 04/04/18 12:00 04/04/18 12:00 04/04/18 00:01 Intake and Output: 04/04/18 04/04/18 06:59 18:59 Intake Total 900 Output Total 1150 Balance -250 - Medications Medications: Current Medications Acetylcysteine (Acetylcysteine 20%) 4 ml IH BIDRESP [facility] Last Admin: 04/04/18 08:12 Dose: 4 ml Aspirin (Ecotrin) 81 mg PO DAILY [facility] Last Admin: 04/04/18 10:06 Dose: Not Given Atorvastatin Calcium (Lipitor) 80 mg PO DIN [facility] Last Admin: 04/03/18 17:14 Dose: Not Given Benzonatate (Tessalon Perles) 100 mg PO TID [facility] Last Admin: 04/04/18 14:03 Dose: Not Given Budesonide (Pulmicort Respules) 0.5 mg IH [id number] [facility] Last Admin: 04/04/18 08:12 Dose: 0.5 mg Carbamide Peroxide (Debrox Ear Drops) 0 ml AU BID [facility] Last Admin: 04/04/18 10:06 Dose: Not Given Docusate Sodium (Colace) 100 mg PO BID [facility] Last Admin: 04/04/18 10:05 Dose: Not Given Enoxaparin Sodium (Lovenox) 40 mg SC DAILY [facility]; Protocol Last Admin: 04/04/18 10:06 Dose: Not Given Fluoxetine HCl (Prozac) 10 mg PO DAILY [facility] Last Admin: 04/04/18 10:08 Dose: Not Given Dextrose/Sodium Chloride (Dextrose 5%/0.45% Ns 1000 Ml) 1,000 mls @ 50 mls/hr IV .Q20H [facility] Last Admin: 04/03/18 22:46 Dose: 50 mls/hr Levalbuterol HCl (Xopenex) 0.63 mg IH TIDRESP [facility] Last Admin: 04/04/18 13:39 Dose: Not Given Lidocaine (Lidoderm) 1 ea TD DAILY [facility] Last Admin: 04/04/18 10:06 Dose: Not Given Lorazepam (Ativan) 0.5 mg PO TID PRN; Protocol PRN Reason: Anxiety Last Admin: 03/31/18 16:36 Dose: 0.5 mg Metoprolol Tartrate (Lopressor) 25 mg PO BRKDIN [facility] Last Admin: 04/04/18 08:10 Dose: Not Given Metoprolol Tartrate (Lopressor) 5 mg IVP Q6H PRN PRN Reason: Systolic Blood Pressure Oxycodone HCl (Oxycodone Immediate Release Tab) 30 mg PO Q6H PRN PRN Reason: Pain, moderate (4-7) Last Admin: 04/04/18 12:45 Dose: 30 mg Pantoprazole Sodium (Protonix Ec Tab) 40 mg PO ACB [facility] Last Admin: 04/04/18 10:08 Dose: Not Given Petrolatum (Desitin Maximum Strength Topical 40% Oint) 0 gm TOP Q4H PRN PRN Reason: Rash Last Admin: 04/02/18 11:31 Dose: 40 tub Polyethylene Glycol (Miralax) 17 gm PO BID [facility] Last Admin: 04/04/18 10:06 Dose: Not Given Prednisone (Prednisone Tab) 15 mg PO DAILY [facility] Last Admin: 04/04/18 10:07 Dose: Not Given Tamsulosin HCl (Flomax) 0.4 mg PO DAILY [facility] Last Admin: 04/04/18 10:06 Dose: Not Given - Labs Labs: 04/04/18 10:20 04/04/18 06:00 PT 13.7 SECONDS (9.4-12.5) H 04/01/18 05:36 INR 1.19 04/01/18 05:36 APTT 54.8 Seconds (26.9-38.3) H 04/02/18 08:00 - Constitutional Appears: Cachectic, Chronically Ill - Eye Exam Eye Exam: Normal appearance, PERRL - ENT Exam ENT Exam: Mucous Membranes Moist - Respiratory Exam Respiratory Exam: Decreased Breath Sounds, Rhonchi Additional comments: right chest tube chest tube to contentious suction - Cardiovascular Exam Cardiovascular Exam: REGULAR RHYTHM, +S1, +S2 - GI/Abdominal Exam GI & Abdominal Exam: Soft, Normal Bowel Sounds - Extremities Exam Extremities Exam: Pedal Edema - Neurological Exam Neurological Exam: Alert, Oriented x3 - Skin Skin Exam: Dry, Pallor Assessment and Plan - Assessment and Plan (Free Text) Assessment: 67 year old male with history of whom is admitted with non small cell lung cancer who is admitted with sepsis, respiratory failure, right lung effusion, atectasis. Patient's at bedside. Goals of care discussed at length. The patient has been very conflicted about " giving in and giving up the fight". Dr Read spoke with him earlier and had updated him of medical condition and poor prognosis. Patient decided that he does not want to go continue aggressive care, does not want to LTAC. Instead prefers to be placed on comfort care. Hospice services explained Questions answered. Patient agreeable to transition to [facility] hospice care. He is agreeable to DNR/DNI. Psychosocial support provided Tie spent with patient/family in goals of care, advance care planning and end of life counseling Plan: Hospice evaluation Discharge and admit to [facility] services
--- NOTE | 2018-04-04 14:59 | CP.PCM.DIS ---
<Paloma Rodriguez - Last Filed: 04/05/18 01:45> Provider - Provider Date of Admission: 03/11/18 23:00 Attending physician: Fred Sidhu MD Consults: 03/12/18 01:14 Cardiology Consult Routine Comment: Consulting Provider: Reji Garsia Consulting Physician: Reji Garsia Reason for Consult: New onset CHF vs ACS r/o 03/12/18 01:33 Hematology Oncology Consult Routine Comment: Consulting Provider: Festus Vaughn Consulting Physician: Festus Vaughn Reason for Consult: Adenoid CA w/ mets 03/12/18 01:45 Radiology Consult Routine Comment: Consulting Provider: Smooth Izquierdo Consulting Physician: Smooth Izquierdo Reason for Consult: R lung compression atlectasis in setting of pleural effusion 03/12/18 03:38 Consult [Physician Consult] Routine Comment: code sepsis,leukocytosis,elevated lactate, right Consulting Provider: Dominic Jay Consulting Physician: Dominic Jay Reason for Consult: code sepsis,leukocytosis,elevated lactate, right Additional Comments: pleral effusion(infectious?),allergic to mycins,PCN. 03/12/18 08:02 Physician Consult Routine Comment: Consulting Provider: Litzy Hahn Consulting Physician: Litzy Hahn Reason for Consult: Advance directive Additional Comments: 03/12/18 16:04 Consult [Physician Consult] Routine Comment: Consulting Provider: Fred Read Consulting Physician: Fred Read Reason for Consult: Pneumonia 03/14/18 17:34 Physiatry Consult Routine Comment: Consulting Provider: Smooth Izquierdo Consulting Physician: Smooth Izquierdo Reason for Consult: chest tube 03/16/18 08:32 Palliative Care Consult Routine Comment: Consulting Provider: Litzy Hahn Physician Instructions: Reason For Exam: GOALS OF CARE 03/16/18 10:03 Physiatry Consult Routine Comment: Consulting Provider: Smooth Izquierdo Consulting Physician: Smooth Izquierdo Reason for Consult: reoccurent pleural effusion 03/16/18 18:01 Consult [Physician Consult] Routine Comment: chest tube Consulting Provider: Smooth Izquierdo Consulting Physician: Smooth Izquierdo Reason for Consult: chest tube 03/19/18 09:54 Consult [Physician Consult] Routine Comment: Consulting Provider: Nicole Mi Consulting Physician: Nicole Mi Reason for Consult: depression 03/24/18 17:14 Consult [Physician Consult] Routine Comment: pneumothorax Consulting Provider: Smooth Izquierdo Consulting Physician: Smooth Izquierdo Reason for Consult: probabaly bigger bore chest tube 03/27/18 12:55 TRCU [Evaluation for TRCU] Routine Comment: Physician Instructions: Reason For Exam: weakness, stairs at home 03/27/18 16:01 Consult [Physician Consult] Routine Comment: Consulting Provider: Antoni Trinidad Consulting Physician: Antoni Trinidad Reason for Consult: Persistent R pneumothorax 03/29/18 17:25 Consult [Physician Consult] Routine Comment: Consulting Provider: Jg Aguila Consulting Physician: Jg Aguila Reason for Consult: hearing loss/?impacted cerumen 03/31/18 12:36 Nursing Referral for Wound Care Routine Comment: Physician Instructions: Reason For Exam: Stage 1 sacral ulcer 04/03/18 10:56 Palliative Care Consult Routine Comment: Consulting Provider: Litzy Hahn Physician Instructions: Reason For Exam: review goals of care 04/03/18 21:51 Case Management Referral Routine Comment: Physician Instructions: kerlix and tegaderm, Aspirate PRN Reason For Exam: Aspira/ PleurX catheter care: sterile dressing Reason for Referral: VNA Eval 04/04/18 12:37 Psychiatry Consult Routine Comment: Consulting Provider: Nicole Mi Consulting Physician: Nicole Mi Reason for Consult: depression 04/04/18 14:50 Hospice [Case Management Referral] Routine Comment: Physician Instructions: Reason For Exam: Donita GIP Reason for Referral: Hospice Eval Time Spent in preparation of Discharge (in minutes): 45 Diagnosis - Discharge Diagnosis (1) Lung cancer Status: Acute (2) Sepsis Status: Acute Hospital Course - Lab Results Lab Results: Micro Results 04/01/18 16:30 Other: Please Indicate Mycobacterial Culture - Preliminary 04/01/18 19:43 Nose MRSA Culture (Admit) - Final MRSA NOT DETECTED 04/01/18 16:30 Pleural Fluid Gram Stain - Final 04/01/18 16:30 Pleural Fluid Body Fluid Culture - Preliminary NO GROWTH AFTER 24 HOURS 03/12/18 01:40 Naris MRSA Culture (Admit) - Final MRSA NOT DETECTED 03/11/18 21:30 Blood Blood Culture - Final NO GROWTH AFTER 5 DAYS 03/11/18 21:30 Blood Gram Stain - Final TEST NOT PERFORMED 03/11/18 21:00 Blood Blood Culture - Final NO GROWTH AFTER 5 DAYS 03/11/18 21:00 Blood Gram Stain - Final TEST NOT PERFORMED 03/12/18 08:26 Urine Urine Culture - Final No Growth (<1,000 CFU/ML) Most Recent Lab Values WBC 4.9 10^3/uL (4.5-11.0) 04/04/18 10:20 RBC 2.74 10^6/uL (3.5-6.1) L 04/04/18 10:20 Hgb 7.6 g/dL (14.0-18.0) L 04/04/18 10:20 Hct 24.2 % (42.0-52.0) L 04/04/18 10:20 MCV 88.3 fl (80.0-105.0) 04/04/18 10:20 MCH 27.7 pg (25.0-35.0) 04/04/18 10:20 MCHC 31.4 g/dl (31.0-37.0) 04/04/18 10:20 RDW 19.4 % (11.5-14.5) H 04/04/18 10:20 Plt Count 73 10^3/uL (120.0-450.0) L 04/04/18 10:20 MPV 9.8 fl (7.0-11.0) 04/04/18 10:20 Gran % 88.1 % (50.0-68.0) H 04/02/18 05:15 Lymph % (Auto) 6.5 % (22.0-35.0) L 04/02/18 05:15 [place]ne % (Auto) 5.4 % (1.0-6.0) 04/02/18 05:15 Eos % (Auto) 0.0 % (1.5-5.0) L 04/02/18 05:15 Baso % (Auto) 0.0 % (0.0-3.0) 04/02/18 05:15 Gran # 9.95 (1.4-6.5) H 04/02/18 05:15 Lymph # (Auto) 0.7 (1.2-3.4) L 04/02/18 05:15 Duc[place]ne # (Auto) 0.6 (0.1-0.6) 04/02/18 05:15 Eos # (Auto) 0.0 (0.0-0.7) 04/02/18 05:15 Baso # (Auto) 0.00 K/mm3 (0.0-2.0) 04/02/18 05:15 Neutrophils % (Manual) 93 % (50.0-70.0) H 04/01/18 18:22 Band Neutrophils % 6 % (0-2) H 03/12/18 05:20 Lymphocytes % (Manual) 3 % (22.0-35.0) L 04/01/18 18:22 Monocytes % (Manual) 4 % (1.0-6.0) 04/01/18 18:22 Eosinophils % (Manual) 1 % (0.0-3.0) 03/12/18 05:20 Toxic Granulation Slight 03/12/18 05:20 Platelet Evaluation Normal (NORMAL) 04/01/18 18:22 Hypochromasia 1+ 04/01/18 18:22 Poikilocytosis (manual Slight 03/12/18 05:20 Anisocytosis (manual) Slight 03/12/18 05:20 Target Cells Slight 04/01/18 18:22 Rouleaux 2+ 04/01/18 18:22 PT 13.7 SECONDS (9.4-12.5) H 04/01/18 05:36 INR 1.19 04/01/18 05:36 APTT 54.8 Seconds (26.9-38.3) H 04/02/18 08:00 pCO2 44 mm/Hg (35-45) 04/03/18 12:50 pO2 75.0 mm/Hg (80-100) L 04/03/18 12:50 HCO3 24.9 mmol/L (21-28) 04/03/18 12:50 ABG pH 7.36 (7.35-7.45) 04/03/18 12:50 ABG Total CO2 26.3 mmol.L (22-28) 04/03/18 12:50 ABG O2 Saturation 98.6 % (95-98) H 04/03/18 12:50 ABG O2 Content 11.8 ML/dl (15-23) L 04/03/18 05:00 ABG Base Excess -0.8 mmol/L (-2.0-3.0) 04/03/18 12:50 ABG Hemoglobin 8.4 g/dL (11.7-17.4) L 04/03/18 05:00 ABG Carboxyhemoglobin 2.3 % (0.5-1.5) H 04/03/18 05:00 POC ABG HHb (Measured) -0.3 % (0-5) L 04/03/18 05:00 ABG Methemoglobin 0.8 % (0.0-3.0) 04/03/18 05:00 ABG O2 Capacity 11.8 mL/dl (16-24) L 04/03/18 05:00 ABG Potassium 3.8 mmol/L (3.6-5.2) 04/03/18 12:50 VBG pH 7.30 (7.32-7.43) L 03/12/18 01:30 VBG pCO2 57.0 (40-60) 03/12/18 01:30 VBG HCO3 28.0 mmol/l (21-28) 03/12/18 01:30 VBG Total CO2 29.7 mmol.L (22-28) H 03/12/18 01:30 VBG O2 Sat (Calc) 64.6 % (40-65) 03/12/18 01:30 VBG Base Excess 0.4 mmol/L (0.0-2.0) 03/12/18 01:30 VBG Potassium 4.4 mmol/L (3.6-5.2) 03/12/18 01:30 Hgb O2 Saturation 97.2 % (95.0-98.0) 04/03/18 05:00 Sodium 136.0 mmol/L (132-148) 04/03/18 12:50 Chloride 108.0 mmol/L (98-107) H 04/03/18 12:50 Glucose 93 mg/dl (75-110) 04/03/18 12:50 Lactate 0.8 mmol/L (0.7-2.1) 04/03/18 12:50 Mechanical Rate 16 04/01/18 17:39 FiO2 24.0 % 04/03/18 12:50 Tidal Volume 400 04/01/18 17:39 PEEP 5 04/01/18 17:39 Pressure Support 6 03/12/18 06:00 Inspiratory BiPAP 12 03/12/18 06:00 Sodium 133 mmol/L (132-148) 04/04/18 06:00 Potassium 3.9 mmol/L (3.6-5.0) 04/04/18 06:00 Chloride 105 mmol/L (98-107) 04/04/18 06:00 Carbon Dioxide 28 mmol/L (21-33) 04/04/18 06:00 Anion Gap 4 (10-20) L 04/04/18 06:00 BUN 19 mg/dL (7-21) 04/04/18 06:00 Creatinine 0.8 mg/dl (0.8-1.5) 04/04/18 06:00 Est GFR ( Amer) > 60 04/04/18 06:00 Est GFR (Non-Af Amer) > 60 04/04/18 06:00 POC Glucose (mg/dL) 192 mg/dL (65-110) H 03/22/18 02:50 Random Glucose 102 mg/dL (70-110) 04/04/18 06:00 Hemoglobin A1c 5.7 % (4.2-6.5) 03/12/18 10:30 Calcium 7.0 mg/dL (8.4-10.5) L 04/04/18 06:00 Phosphorus 2.2 mg/dL (2.5-4.5) L 04/04/18 06:00 Magnesium 1.8 mg/dL (1.7-2.2) 04/04/18 06:00 Total Bilirubin 0.5 mg/dL (0.2-1.3) 04/04/18 06:00 AST 31 U/L (17-59) 04/04/18 06:00 ALT 59 U/L (7-56) H 04/04/18 06:00 Alkaline Phosphatase 97 U/L (38-126) 04/04/18 06:00 Lactate Dehydrogenase 250 U/L (333-699) L 04/02/18 00:45 Total Creatine Kinase < 20 U/L (35-230) L 04/02/18 00:45 Troponin I 0.04 ng/mL D 04/02/18 20:37 NT-Pro-B Natriuret Pep 6550 pg/mL (0-450) H 03/11/18 20:55 Total Protein 3.8 g/dL (5.8-8.3) L 04/04/18 06:00 Albumin 1.9 g/dL (3.0-4.8) L 04/04/18 06:00 Globulin 2.0 gm/dL 04/04/18 06:00 Albumin/Globulin Ratio 1.0 (1.1-1.8) L 04/04/18 06:00 Procalcitonin 0.19 NG/ML (0.19-0.49) 03/18/18 06:00 Arterial Blood Potassium 3.8 mmol/L (3.6-5.2) 04/03/18 12:50 Venous Blood Potassium 4.4 mmol/L (3.6-5.2) 03/12/18 01:30 Urine Color Light brown (YELLOW) 03/12/18 09:00 Urine Appearance Cloudy (CLEAR) 03/12/18 09:00 Urine pH 5.0 (4.7-8.0) 03/12/18 09:00 Ur Specific [place] >= 1.030 (1.005-1.035) 03/12/18 09:00 Urine Protein 30 mg/dL (<30 mg/dL) H 03/12/18 09:00 Urine Glucose (UA) Negative mg/dL (NEGATIVE) 03/12/18 09:00 Urine Ketones Trace mg/dL (NEGATIVE) H 03/12/18 09:00 Urine Blood Large (NEGATIVE) H 03/12/18 09:00 Urine Nitrate Negative (NEGATIVE) 03/12/18 09:00 Urine Bilirubin Moderate (NEGATIVE) H 03/12/18 09:00 Urine Urobilinogen 1.0 E.U./dL (<1 E.U./dL) H 03/12/18 09:00 Ur Leukocyte Esterase Trace Good/uL (NEGATIVE) H 03/12/18 09:00 Urine RBC Tntc /hpf (0-2) H 03/12/18 09:00 Urine WBC 15 - 20 /hpf (0-6) H 03/12/18 09:00 Ur Epithelial Cells 0 - 2 /hpf (0-5) 03/12/18 09:00 Amorphous Sediment Moderate /hpf (NONE) 03/12/18 09:00 Urine Bacteria Many /hpf (NONE) 03/12/18 09:00 Fine Granular Casts 0 - 2 /hpf (NONE) 03/12/18 09:00 Coarse Granular Casts Small /hpf (NONE) 03/12/18 09:00 Urine Other Uyeast /hpf 03/12/18 09:00 Ur L.pneumophila Ag Negative (NEGATIVE) 03/13/18 00:00 Blood Type A POSITIVE 04/04/18 10:20 Blood Type Confirm A POSITIVE 04/01/18 06:20 Antibody Screen Negative 04/04/18 10:20 Crossmatch See Detail 04/04/18 10:20 BBK History Checked Patient has bt 04/04/18 10:20 - Hospital Course Hospital Course: Upon Admission: 67M w/ a 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 Patient reports his shortness of breath has been worsening over the past two weeks. 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 He reported that he has had chemo-radiation therapies in the past; and reported during evaluation that he has had remission in the past. He reports during the past two weeks his SOB has been associated w/ worsening orthopnea, productive cough w/ dark sputum, 20lb weight loss, decreased appetite + nausea, and 2 days of worsening bilateral lower extremity edema. Also reports worsening fatigue/ lethargy and weakness. Patient also reported intermittent periods of heaviness in his chest and mild chest pains; denies any at present. Patient also reports increasing crusting/discharge, and burning from his eyes over the past two weeks. He reports he is very thirsty. He also reports a rash on his buttocks. He denies fevers, chills, night sweats, V/D/C, abd pain, urinary discomfort/ pain, hematuria, numbness/tingling. Remainder 12 system ROS is otherwise negati ve. Hospital Course: In ED pt had CXR done which showed a R sided pleural effusion and R sided lung white out. CT showed complete atelectasis of R lung with L R pleural effusion. Echo was done and showed EF of 53%. Pt initially presented with severe sepsis, which had eventually resolved with IVF, O2 support and broad spectrum abx started per ID recs. IR was consulted for thoracentesis. Cardio and heme/onc were also consulted. Cardio signed off stated that this was likely a pulmonary issue causing any EKG disturbances. Heme/onc agrees to follow the pt as does IR. IR did thoracentesis on 03/12 and 1.9 L of fluid were removed. Repeat imaginign a few dyas later showed a recurrence of the R sided white out and decision for chest tube placement was made per agreement with pt and family. Chest tube placed on 03/18 and consistently drains over 400 cc/day. Pt states that he is in agreement for pleur-x cath placement to continually drain fluid, but since chest tube was pulled and site was leaking not enough fluid available for pleur-x placement. Per pulm doctors recs CT surgery consulted who wished to take pt for VATS procedure to try and reinflate lung. 04/01 pt had VATS procedure done which was unsuccessful. Pt had noted STEMI after procedure and placed in ICU. ICU and cardio placed pt on heparin drip which was d/yenny the next per cardio recs. Pt still has persistent pneumothorax and has chest tube draining 600cc/day. Pt had compassionate care team on board and after surgical failure pt discussed hospice options. Pt was seen again by psych for depression but pt had no SI or HI. Pt spoke with Swati, head of hospice and is in agreement for the plan for discharge. All of the pt and families questions were answered and conversations occured at length in regards to pts status and doing what is best for the pt. For further details please refer to medical chart for individual notes. Discharge Exam - Head Exam Head Exam: ATRAUMATIC, NORMAL INSPECTION, NORMOCEPHALIC - Eye Exam Eye Exam: EOMI, Normal appearance, PERRL - Respiratory Exam Respiratory Exam: Decreased Breath Sounds. absent: Rales, Rhonchi, Wheezes, Respiratory Distress Additional comments: Pt is noted to have chest tube and pleur-x cath in place. Pt is noted to have decreased breath sounds greatly reduced on R. Normal breath sounds on the L. - Cardiovascular Exam Cardiovascular Exam: RRR, +S1, +S2. absent: Gallop, Rubs - GI/Abdominal Exam GI & Abdominal Exam: Normal Bowel Sounds, Soft, Unremarkable. absent: Distended, Firm, Guarding - Extremities Exam Extremities exam: normal capillary refill, pedal edema (trace b/l pitting edema ), pedal pulses present - Back Exam Back exam: NORMAL INSPECTION. 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 <Fred Sidhu - Last Filed: 04/05/18 13:50> Provider - Provider Date of Admission: 03/11/18 23:00 Attending physician: Fred Sidhu MD Consults: 03/12/18 01:14 Cardiology Consult Routine Comment: Consulting Provider: Reji Garsia Consulting Physician: Reji Garsia Reason for Consult: New onset CHF vs ACS r/o 03/12/18 01:33 Hematology Oncology Consult Routine Comment: Consulting Provider: Festus Vaughn Consulting Physician: Festus aVughn Reason for Consult: Adenoid CA w/ mets 03/12/18 01:45 Radiology Consult Routine Comment: Consulting Provider: Smooth Izquierdo Consulting Physician: Smooth Izquierdo Reason for Consult: R lung compression atlectasis in setting of pleural effusion 03/12/18 03:38 Consult [Physician Consult] Routine Comment: code sepsis,leukocytosis,elevated lactate, right Consulting Provider: Dominic Jay Consulting Physician: Dominic Jay Reason for Consult: code sepsis,leukocytosis,elevated lactate, right Additional Comments: pleral effusion(infectious?),allergic to mycins,PCN. 03/12/18 08:02 Physician Consult Routine Comment: Consulting Provider: Litzy Hahn Consulting Physician: Litzy Hahn Reason for Consult: Advance directive Additional Comments: 03/12/18 16:04 Consult [Physician Consult] Routine Comment: Consulting Provider: Fred Read Consulting Physician: Fred Read Reason for Consult: Pneumonia 03/14/18 17:34 Physiatry Consult Routine Comment: Consulting Provider: Smooth Izquierdo Consulting Physician: Smooth Izquierdo Reason for Consult: chest tube 03/16/18 08:32 Palliative Care Consult Routine Comment: Consulting Provider: Litzy Hahn Physician Instructions: Reason For Exam: GOALS OF CARE 03/16/18 10:03 Physiatry Consult Routine Comment: Consulting Provider: Smooth Izquierdo Consulting Physician: Smooth Izquierdo Reason for Consult: reoccurent pleural effusion 03/16/18 18:01 Consult [Physician Consult] Routine Comment: chest tube Consulting Provider: Smooth Izquierdo Consulting Physician: Smooth Izquierdo Reason for Consult: chest tube 03/19/18 09:54 Consult [Physician Consult] Routine Comment: Consulting Provider: Nicole Mi Consulting Physician: Nicole Mi Reason for Consult: depression 03/24/18 17:14 Consult [Physician Consult] Routine Comment: pneumothorax Consulting Provider: Smooth Izquierdo Consulting Physician: Smooth Izquierdo Reason for Consult: probabaly bigger bore chest tube 03/27/18 12:55 TRCU [Evaluation for TRCU] Routine Comment: Physician Instructions: Reason For Exam: weakness, stairs at home 03/27/18 16:01 Consult [Physician Consult] Routine Comment: Consulting Provider: Antoni Trinidad Consulting Physician: Anotni Trinidad Reason for Consult: Persistent R pneumothorax 03/29/18 17:25 Consult [Physician Consult] Routine Comment: Consulting Provider: Jg Aguila Consulting Physician: Jg Aguila Reason for Consult: hearing loss/?impacted cerumen 03/31/18 12:36 Nursing Referral for Wound Care Routine Comment: Physician Instructions: Reason For Exam: Stage 1 sacral ulcer 04/03/18 10:56 Palliative Care Consult Routine Comment: Consulting Provider: Litzy Hahn Physician Instructions: Reason For Exam: review goals of care 04/03/18 21:51 Case Management Referral Routine Comment: Physician Instructions: kerlix and tegaderm, Aspirate PRN Reason For Exam: Aspira/ PleurX catheter care: sterile dressing Reason for Referral: VNA Eval 04/04/18 12:37 Psychiatry Consult Routine Comment: Consulting Provider: Nicole Mi Consulting Physician: Nicole Mi Reason for Consult: depression 04/04/18 14:50 Hospice [Case Management Referral] Routine Comment: Physician Instructions: Reason For Exam: Donita LOERA Reason for Referral: Hospice [facility] Hospital Course - Lab Results Lab Results: Micro Results 04/01/18 16:30 Pleural Fluid Gram Stain - Final 04/01/18 16:30 Pleural Fluid Body Fluid Culture - Final No growth. 04/01/18 16:30 Other: Please Indicate Mycobacterial Culture - Preliminary 04/01/18 19:43 Nose MRSA Culture (Admit) - Final MRSA NOT DETECTED 03/12/18 01:40 Naris MRSA Culture (Admit) - Final MRSA NOT DETECTED 03/11/18 21:30 Blood Blood Culture - Final NO GROWTH AFTER 5 DAYS 03/11/18 21:30 Blood Gram Stain - Final TEST NOT PERFORMED 03/11/18 21:00 Blood Blood Culture - Final NO GROWTH AFTER 5 DAYS 03/11/18 21:00 Blood Gram Stain - Final TEST NOT PERFORMED 03/12/18 08:26 Urine Urine Culture - Final No Growth (<1,000 CFU/ML) Most Recent Lab Values WBC 4.9 10^3/uL (4.5-11.0) 04/04/18 10:20 RBC 2.74 10^6/uL (3.5-6.1) L 04/04/18 10:20 Hgb 7.6 g/dL (14.0-18.0) L 04/04/18 10:20 Hct 24.2 % (42.0-52.0) L 04/04/18 10:20 MCV 88.3 fl (80.0-105.0) 04/04/18 10:20 MCH 27.7 pg (25.0-35.0) 04/04/18 10:20 MCHC 31.4 g/dl (31.0-37.0) 04/04/18 10:20 RDW 19.4 % (11.5-14.5) H 04/04/18 10:20 Plt Count 73 10^3/uL (120.0-450.0) L 04/04/18 10:20 MPV 9.8 fl (7.0-11.0) 04/04/18 10:20 Gran % 88.1 % (50.0-68.0) H 04/02/18 05:15 Lymph % (Auto) 6.5 % (22.0-35.0) L 04/02/18 05:15 [place] % (Auto) 5.4 % (1.0-6.0) 04/02/18 05:15 Eos % (Auto) 0.0 % (1.5-5.0) L 04/02/18 05:15 Baso % (Auto) 0.0 % (0.0-3.0) 04/02/18 05:15 Gran # 9.95 (1.4-6.5) H 04/02/18 05:15 Lymph # (Auto) 0.7 (1.2-3.4) L 04/02/18 05:15 [place] # (Auto) 0.6 (0.1-0.6) 04/02/18 05:15 Eos # (Auto) 0.0 (0.0-0.7) 04/02/18 05:15 Baso # (Auto) 0.00 K/mm3 (0.0-2.0) 04/02/18 05:15 Neutrophils % (Manual) 93 % (50.0-70.0) H 04/01/18 18:22 Band Neutrophils % 6 % (0-2) H 03/12/18 05:20 Lymphocytes % (Manual) 3 % (22.0-35.0) L 04/01/18 18:22 Monocytes % (Manual) 4 % (1.0-6.0) 04/01/18 18:22 Eosinophils % (Manual) 1 % (0.0-3.0) 03/12/18 05:20 Toxic Granulation Slight 03/12/18 05:20 Platelet Evaluation Normal (NORMAL) 04/01/18 18:22 Hypochromasia 1+ 04/01/18 18:22 Poikilocytosis (manual Slight 03/12/18 05:20 Anisocytosis (manual) Slight 03/12/18 05:20 Target Cells Slight 04/01/18 18:22 Rouleaux 2+ 04/01/18 18:22 PT 13.7 SECONDS (9.4-12.5) H 04/01/18 05:36 INR 1.19 04/01/18 05:36 APTT 54.8 Seconds (26.9-38.3) H 04/02/18 08:00 pCO2 44 mm/Hg (35-45) 04/03/18 12:50 pO2 75.0 mm/Hg (80-100) L 04/03/18 12:50 HCO3 24.9 mmol/L (21-28) 04/03/18 12:50 ABG pH 7.36 (7.35-7.45) 04/03/18 12:50 ABG Total CO2 26.3 mmol.L (22-28) 04/03/18 12:50 ABG O2 Saturation 98.6 % (95-98) H 04/03/18 12:50 ABG O2 Content 11.8 ML/dl (15-23) L 04/03/18 05:00 ABG Base Excess -0.8 mmol/L (-2.0-3.0) 04/03/18 12:50 ABG Hemoglobin 8.4 g/dL (11.7-17.4) L 04/03/18 05:00 ABG Carboxyhemoglobin 2.3 % (0.5-1.5) H 04/03/18 05:00 POC ABG HHb (Measured) -0.3 % (0-5) L 04/03/18 05:00 ABG Methemoglobin 0.8 % (0.0-3.0) 04/03/18 05:00 ABG O2 Capacity 11.8 mL/dl (16-24) L 04/03/18 05:00 ABG Potassium 3.8 mmol/L (3.6-5.2) 04/03/18 12:50 VBG pH 7.30 (7.32-7.43) L 03/12/18 01:30 VBG pCO2 57.0 (40-60) 03/12/18 01:30 VBG HCO3 28.0 mmol/l (21-28) 03/12/18 01:30 VBG Total CO2 29.7 mmol.L (22-28) H 03/12/18 01:30 VBG O2 Sat (Calc) 64.6 % (40-65) 03/12/18 01:30 VBG Base Excess 0.4 mmol/L (0.0-2.0) 03/12/18 01:30 VBG Potassium 4.4 mmol/L (3.6-5.2) 03/12/18 01:30 Hgb O2 Saturation 97.2 % (95.0-98.0) 04/03/18 05:00 Sodium 136.0 mmol/L (132-148) 04/03/18 12:50 Chloride 108.0 mmol/L (98-107) H 04/03/18 12:50 Glucose 93 mg/dl (75-110) 04/03/18 12:50 Lactate 0.8 mmol/L (0.7-2.1) 04/03/18 12:50 Mechanical Rate 16 04/01/18 17:39 FiO2 24.0 % 04/03/18 12:50 Tidal Volume 400 04/01/18 17:39 PEEP 5 04/01/18 17:39 Pressure Support 6 03/12/18 06:00 Inspiratory BiPAP 12 03/12/18 06:00 Sodium 133 mmol/L (132-148) 04/04/18 06:00 Potassium 3.9 mmol/L (3.6-5.0) 04/04/18 06:00 Chloride 105 mmol/L (98-107) 04/04/18 06:00 Carbon Dioxide 28 mmol/L (21-33) 04/04/18 06:00 Anion Gap 4 (10-20) L 04/04/18 06:00 BUN 19 mg/dL (7-21) 04/04/18 06:00 Creatinine 0.8 mg/dl (0.8-1.5) 04/04/18 06:00 Est GFR ( Amer) > 60 04/04/18 06:00 Est GFR (Non-Af Amer) > 60 04/04/18 06:00 POC Glucose (mg/dL) 192 mg/dL (65-110) H 03/22/18 02:50 Random Glucose 102 mg/dL (70-110) 04/04/18 06:00 Hemoglobin A1c 5.7 % (4.2-6.5) 03/12/18 10:30 Calcium 7.0 mg/dL (8.4-10.5) L 04/04/18 06:00 Phosphorus 2.2 mg/dL (2.5-4.5) L 04/04/18 06:00 Magnesium 1.8 mg/dL (1.7-2.2) 04/04/18 06:00 Total Bilirubin 0.5 mg/dL (0.2-1.3) 04/04/18 06:00 AST 31 U/L (17-59) 04/04/18 06:00 ALT 59 U/L (7-56) H 04/04/18 06:00 Alkaline Phosphatase 97 U/L (38-126) 04/04/18 06:00 Lactate Dehydrogenase 250 U/L (333-699) L 04/02/18 00:45 Total Creatine Kinase < 20 U/L (35-230) L 04/02/18 00:45 Troponin I 0.04 ng/mL D 04/02/18 20:37 NT-Pro-B Natriuret Pep 6550 pg/mL (0-450) H 03/11/18 20:55 Total Protein 3.8 g/dL (5.8-8.3) L 04/04/18 06:00 Albumin 1.9 g/dL (3.0-4.8) L 04/04/18 06:00 Globulin 2.0 gm/dL 04/04/18 06:00 Albumin/Globulin Ratio 1.0 (1.1-1.8) L 04/04/18 06:00 Procalcitonin 0.19 NG/ML (0.19-0.49) 03/18/18 06:00 Arterial Blood Potassium 3.8 mmol/L (3.6-5.2) 04/03/18 12:50 Venous Blood Potassium 4.4 mmol/L (3.6-5.2) 03/12/18 01:30 Urine Color Light brown (YELLOW) 03/12/18 09:00 Urine Appearance Cloudy (CLEAR) 03/12/18 09:00 Urine pH 5.0 (4.7-8.0) 03/12/18 09:00 Ur Specific [place] >= 1.030 (1.005-1.035) 03/12/18 09:00 Urine Protein 30 mg/dL (<30 mg/dL) H 03/12/18 09:00 Urine Glucose (UA) Negative mg/dL (NEGATIVE) 03/12/18 09:00 Urine Ketones Trace mg/dL (NEGATIVE) H 03/12/18 09:00 Urine Blood Large (NEGATIVE) H 03/12/18 09:00 Urine Nitrate Negative (NEGATIVE) 03/12/18 09:00 Urine Bilirubin Moderate (NEGATIVE) H 03/12/18 09:00 Urine Urobilinogen 1.0 E.U./dL (<1 E.U./dL) H 03/12/18 09:00 Ur Leukocyte Esterase Trace Good/uL (NEGATIVE) H 03/12/18 09:00 Urine RBC Tntc /hpf (0-2) H 03/12/18 09:00 Urine WBC 15 - 20 /hpf (0-6) H 03/12/18 09:00 Ur Epithelial Cells 0 - 2 /hpf (0-5) 03/12/18 09:00 Amorphous Sediment Moderate /hpf (NONE) 03/12/18 09:00 Urine Bacteria Many /hpf (NONE) 03/12/18 09:00 Fine Granular Casts 0 - 2 /hpf (NONE) 03/12/18 09:00 Coarse Granular Casts Small /hpf (NONE) 03/12/18 09:00 Urine Other Uyeast /hpf 03/12/18 09:00 Ur L.pneumophila Ag Negative (NEGATIVE) 03/13/18 00:00 Blood Type A POSITIVE 04/04/18 10:20 Blood Type Confirm A POSITIVE 04/01/18 06:20 Antibody Screen Negative 04/04/18 10:20 Crossmatch See Detail 04/04/18 10:20 BBK History Checked Patient has bt 04/04/18 10:20 Attending/Attestation - Attestation I have personally seen and examined this patient.: Yes I have fully participated in the care of the patient.: Yes I have reviewed all pertinent clinical information, including history, physical exam and plan: Yes Notes (Text): 04/05/18 13:45 Medical record note made by the resident after discussion with my direction and input after the patient was personally seen and examined by me. I have reviewed the chart and agree that the record accurately reflects by personal performance of the history, physical exam, data review, and medical decision-making, in the course for the patient. I have also personally directed the plan of care. 67M w/ a reported PMH of adenocarcinoma of lune lungs, HTN, EtOH abuse, Anxiety, [place] [facility] w/ complaints of worsening SOB x2 weeks due to due to recurrent right sided pleural effusion, likely malignant and Possible Pneumonia. Patient had thoracentesis done on 01/11/19 and 1890 ml of fluid was removed. Repeat Chest X rays showed complete opacification of right side. Patient underwent chest tube placement followed by re positioning of chest tube.Repeat chest X ray today showed hydropneumo thorax.Patient was evaluated by CT surgery and underwent VATS. Temporarily he , was on Respiratory support after VATS Procedure, Chest X rays showed persistant Hydropneumothorax. Patient condition was discussed with patient and his by me and Hospice team.Patient has decided to be DNR and DNI.He has decided to go on Hospice and supportive measures only. He is not looking for any curative treatment.However he is not ready to give permission to take chest tube and Pleural cathter out. Patient will be discharged to Hospice. We will continue supprtive care. Patient is DNR/DNI Overall prognosis is guarded.
[2018-04-04 15:56] VITALS: PULSE 112
--- NOTE | 2018-04-05 08:02 | CP.PCM.PN ---
Subjective - Date & Time of Evaluation Date of Evaluation: 04/05/18 Time of Evaluation: 07:59 - Subjective Subjective: Thoracic Surgery Progress note- Dr. Trinidad Patient seen and examined at bedside, last night and this AM. Currently on hospice. Patient is refusing chest tube to be removed. He states he remains happy with decision. Family at bedside. patient resting comfortably. Chest tube remains on water seal. Objective - Vital Signs/Intake and Output Vital Signs (last 24 hours): Temp Pulse Resp BP Pulse Ox 97.8 F 112 H 18 116/72 96 04/04/18 12:00 04/04/18 14:00 04/04/18 12:00 04/04/18 12:00 04/04/18 00:01 - Labs Labs: 04/04/18 10:20 04/04/18 06:00 PT 13.7 SECONDS (9.4-12.5) H 04/01/18 05:36 INR 1.19 04/01/18 05:36 APTT 54.8 Seconds (26.9-38.3) H 04/02/18 08:00 - Constitutional Appears: Chronically Ill - Head Exam Head Exam: ATRAUMATIC - Eye Exam Eye Exam: EOMI - ENT Exam ENT Exam: Mucous Membranes Dry - Respiratory Exam Respiratory Exam: Decreased Breath Sounds, NORMAL BREATHING PATTERN. absent: Accessory Muscle Use, Respiratory Distress - GI/Abdominal Exam GI & Abdominal Exam: Soft. absent: Guarding, Rigid, Tenderness - Extremities Exam Extremities Exam: Pedal Edema - Neurological Exam Neurological Exam: Alert, Awake, Oriented x3 - Skin Skin Exam: Intact, Warm Assessment and Plan - Assessment and Plan (Free Text) Assessment: 67M stage 4 lung Ca; on hospice Plan: - will keep chest tube in for now as it is patient's wish - hospice management per primary and hospice team. - no acute surgical intervention - d/w Dr. Vivi Alvarez PGY2
--- NOTE | 2018-04-05 15:19 | CP.PCM.PCO ---
Physician Communication Note - Physician Communication Note Physician Communication Note: pt is on hospice now, as per no need to f/u on pt.
--- NOTE | 2018-04-09 08:13 | OP ---
PROCEDURE DATE: 04/01/2018 PREOPERATIVE DIAGNOSIS: Recurrent symptomatic right malignant pleural effusion. POSTOPERATIVE DIAGNOSIS: Recurrent symptomatic right malignant pleural effusion, trapped lung. PROCEDURES: 1. Left arterial line insertion. 2. Flexible bronchoscopy. 3. Regional intercostal nerve block (multiple). 4. Right video-assisted thoracoscopic surgery with pleural biopsy. 5. Intrapleural pneumolysis. 6. Removal of fibrinous debris. 7. Aspira catheter insertion. SURGEON: Antoni Trinidad M.D. COMMISSION SPECIALIST: As per record. TYPE OF ANESTHESIA: General. ANESTHESIOLOGIST: As per record. INDICATIONS: Attempted pleurodesis for recurrent right symptomatic malignant pleural effusion; however, the right lung was completely encased with scar and tumor and not able to achieve pleural apposition. ESTIMATED BLOOD LOSS: Minimal. COMPLICATIONS: Persistent hypoxia secondary to excessive secretions requiring prolonged intubation following completion of the procedure. OPERATION IN DETAIL: The patient was identified by the operating room staff and placed supine onto the operating room table. Bilateral Venodynes were placed. Adequate IV access was ensured by the by the anesthesiologist. A left arterial line was inserted by the surgical sales representative under my supervision utilizing sterile technique. General endotracheal anesthesia was induced. A double lumen tube was inserted utilizing bronchoscopic assistance. There was no evidence of any endobronchial lesion. All mayuri were sharp. There was distal collapse and extensive compression of the right mainstem bronchus. There were excessive secretions as well that required aggressive suctioning. The patient was then turned to the left lateral decubitus position and maintained there with a sorto bag. All pressure points were appropriately padded. The position of the double lumen endotracheal tube was once confirmed to be in proper place with the use of the bronchoscope. With maximal hip flexion, the patient was securely positioned, prepped and draped in the usual sterile fashion. A regional intercostal nerve block was performed in the entire right lateral chest wall by infiltrating 0.25% Marcaine in all the intercostal spaces, just medial to the vertebral takeoffs. Under single-lung ventilation, a right thoracoscopy was performed via 2-port sites. Upon entering the hemithorax, there was significant amount of blood tinged viscous pleural fluid. Samples were taken for cytology and cell block. The hopes would be so as to be able to do receptor genomics and see if the patient is a candidate for any immunotherapy or any targeted therapy. Once the pleural fluid was removed, obvious adhesions were noted throughout the hemithorax. These were taken down primarily with gentle blunt manipulation and cautery. Residual fibrinous debris was also removed with instrumentation. It was hoped that with the intrapleural pneumonolysis and removal of fibrinous debris that the lung enough source to achieve pleural apposition. This was not the case. There was extensive scarring and tumor encasing the entire right lung, primarily along the right lower lobe. There was obviously no indication to perform a decortication under these circumstances. We obviously cannot also perform a pleurodesis under these circumstances. It was decided at this point to proceed with a palliative Aspira catheter insertion. This was done through one of the existing port incision sites. A counterincision was created as well medially and inferiorly approximately 8-cm in length. The Aspira catheter was tunneled from the counterincision site to one of the original port sites. It was then tracked in a basilar and posterior apical fashion. It was anchored with a silk suture in a pursestring fashion. Additional regular chest tube was placed as well through a separate stab wound in case there was any inadvertent early created. It was anchored to the skin with heavy monofilament suture. Hemostasis was deemed adequate. Additional pleural biopsies were taken for obvious pleural implants and sent for permanent pathologic evaluation with the hopes of providing more genomic data if possible. The port incision sites were closed in layers. Additional regional intercostal block was performed. Sterile dressings were applied. The patient was laid supine and allowed to awaken and was still requiring significant oxygen requirements to maintain appropriate saturations. It was decided to proceed back to the postanesthesia care unit and intensive care unit, intubated with the hopes of slowly weaning off ventilatory support. The other vital signs remained stable. All counts were correct x2.
== END 2018-04-04 16:06 | disposition hospice, inpatient (51) | DRG 853 ==
LOC: ED 20:13 → ERH 23:00 → ICU 03-12 01:20 → 2RNO 03-19 01:38 → 5RNO 03-28 02:43 → CCU 04-01 17:27 → 2RSO 04-03 14:12
PROVIDERS: ADMIT Hospitalist; ATTEND Internal Medicine
PROC: 0W9930Z Drainage of Right Pleural Cavity with Drainage Device, Percutaneous Approach (ICD-10-PCS; 2018-03-18)
PROC: BB271ZZ Computerized Tomography (CT Scan) of Right Tracheobronchial Tree using Low Osmolar Contrast (ICD-10-PCS; 2018-03-18)
PROC: 0W29X0Z Change Drainage Device in Right Pleural Cavity, External Approach (ICD-10-PCS; 2018-03-21)
PROC: BB4BZZZ Ultrasonography of Pleura (ICD-10-PCS; 2018-03-27)
PROC: 0W9940Z Drainage of Right Pleural Cavity with Drainage Device, Percutaneous Endoscopic Approach (ICD-10-PCS; 2018-04-01)
PROC: 5A1935Z Respiratory Ventilation, Less than 24 Consecutive Hours (ICD-10-PCS; 2018-04-01)
PROC: 0BH17EZ Insertion of Endotracheal Airway into Trachea, Via Natural or Artificial Opening (ICD-10-PCS; 2018-04-01)
PROC: 0BNK4ZZ Release Right Lung, Percutaneous Endoscopic Approach (ICD-10-PCS; 2018-04-01)
PROC: 0W9940Z Drainage of Right Pleural Cavity with Drainage Device, Percutaneous Endoscopic Approach (ICD-10-PCS; 2018-04-01)
PROC: 0BJ08ZZ Inspection of Tracheobronchial Tree, Via Natural or Artificial Opening Endoscopic (ICD-10-PCS; 2018-04-01)
PROC: 3E0T3BZ Introduction of Anesthetic Agent into Peripheral Nerves and Plexi, Percutaneous Approach (ICD-10-PCS; 2018-04-01)
PROC: 4A133B3 Monitoring of Arterial Pressure, Pulmonary, Percutaneous Approach (ICD-10-PCS; 2018-04-01)
PROC: 0BBN4ZX Excision of Right Pleura, Percutaneous Endoscopic Approach, Diagnostic (ICD-10-PCS; principal; 2018-04-01 13:00)
PROC: 5A09457 Assistance with Respiratory Ventilation, 24-96 Consecutive Hours, Continuous Positive Airway Pressure (ICD-10-PCS; 2018-04-02)
DX: A41.9 Sepsis, unspecified organism (principal); J18.9 Pneumonia, unspecified organism; I21.19 ST elevation (STEMI) myocardial infarction involving other coronary artery of inferior wall; J95.821 Acute postprocedural respiratory failure; J85.1 Abscess of lung with pneumonia; C34.31 Malignant neoplasm of lower lobe, right bronchus or lung; C78.7 Secondary malignant neoplasm of liver and intrahepatic bile duct; C79.51 Secondary malignant neoplasm of bone; N17.9 Acute kidney failure, unspecified; J98.11 Atelectasis; J91.0 Malignant pleural effusion; B37.0 Candidal stomatitis; J93.9 Pneumothorax, unspecified; J44.0 Chronic obstructive pulmonary disease with (acute) lower respiratory infection; R65.20 Severe sepsis without septic shock; I10 Essential (primary) hypertension; F10.20 Alcohol dependence, uncomplicated; H10.89 Other conjunctivitis; F32.9 Major depressive disorder, single episode, unspecified; E11.9 Type 2 diabetes mellitus without complications; Z85.818 Personal history of malignant neoplasm of other sites of lip, oral cavity, and pharynx; Z92.21 Personal history of antineoplastic chemotherapy; Z92.3 Personal history of irradiation; F06.30 Mood disorder due to known physiological condition, unspecified; E87.6 Hypokalemia; D63.8 Anemia in other chronic diseases classified elsewhere; F41.0 Panic disorder [episodic paroxysmal anxiety]; F17.200 Nicotine dependence, unspecified, uncomplicated; G89.4 Chronic pain syndrome; H65.90 Unspecified nonsuppurative otitis media, unspecified ear; H91.90 Unspecified hearing loss, unspecified ear; I07.1 Rheumatic tricuspid insufficiency; I27.20 Pulmonary hypertension, unspecified; I89.1 Lymphangitis; J98.09 Other diseases of bronchus, not elsewhere classified; K21.9 Gastro-esophageal reflux disease without esophagitis; K44.9 Diaphragmatic hernia without obstruction or gangrene; M47.9 Spondylosis, unspecified; N40.1 Benign prostatic hyperplasia with lower urinary tract symptoms; R13.10 Dysphagia, unspecified; R33.8 Other retention of urine; Z51.5 Encounter for palliative care; Z66 Do not resuscitate; Z78.1 Physical restraint status; Z79.899 Other long term (current) drug therapy; Z80.1 Family history of malignant neoplasm of trachea, bronchus and lung; Z80.8 Family history of malignant neoplasm of other organs or systems; Z82.49 Family history of ischemic heart disease and other diseases of the circulatory system; Z88.0 Allergy status to penicillin; Z88.1 Allergy status to other antibiotic agents; Z91.19 Patient's noncompliance with other medical treatment and regimen; Z98.42 Cataract extraction status, left eye; Z98.41 Cataract extraction status, right eye

== ENCOUNTER 2018-04-04 16:10 | Inpatient (IN) | payer OTHER ==
[2018-04-04] MEDS ORDERED: Morphine PCA 1 mg/ml (30ml) 30 ML IV PRN ×2 (16:40→16:51)
[2018-04-04] MEDS ORDERED: Morphine 2 mg/ml ISec IVP STA (16:51)
[2018-04-04 17:42] VITALS: BP 101/61; PULSE 98; RESP 20; TEMP 97.7
[2018-04-04 18:42] VITALS: BMI 25.1
[2018-04-04] MEDS ORDERED: Influenza Vaccine 60 mcg/0.5 mL SYR (4YR UP) IM ONE (18:43)
[2018-04-04] MEDS ORDERED: Pneumococcal 23-Valent Vaccine IM ONE (18:43)
[2018-04-04] MEDS: Budesonide 0.5 mg/2 ml Inhal Susp UD IH SCH (20:57)
[2018-04-04] MEDS: Albuterol 0.5% Inhal Sol (2.5 mg/0.5 ml) UD IH SCH (20:57)
--- NOTE | 2018-04-05 01:16 | CP.PCM.HP ---
<Paloma Rodriguez - Last Filed: 04/05/18 02:15> History of Present Illness - History of Present Illness History of Present Illness: Paloma Rodriguez, PGY-1 Medicine H&P For Dr. 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 ED from 03/11/18-04/04/18 w/ complaints of SOB. Pt was noted to have R sided lung white out on CXR. IR did thoracentesis and pt had reaccumulation of fluid. Then decision was made for chest tube placement due to hydropneumothorax. Pt was noted to have persistent pneumothorax with improvement of hydrothorax. Pt made decision to place pleur-x cath. There was not enough fluid for pleur-x cath placement the following few days and CT surgery was consulted based on pulm recs. CT surgery attempted VATS to re-inflate lung. VATS procedure was unsuccessful and then the pt had STEMI in inferior wall. Pt was transferred to ICU and per cardio started on heparin drip. Pt then D/yenny 2/2 cardio recs and repeat imaging showed chest tube and pleur-x cath in place (placed during VATS procedure). Pt then spoke to Swati in regards to admission to Hospice Care. Pt at this time is just admitted to hospice care is has complaints of pain in multiple places. Otherwise the pt states that he has no other complaints at this time. He is able to tolerate a diet though has little appetite. Pt has no associated n/v with food. He also denies fevers, chills, chest pain, palpitations, SOB (improving from yesterday). Pt admits to persistent cough and deneis abd pain, n/v, c/d, dysuria or hematuria. 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 PMD: Debby [phone] PHARM: [facility]: Ketamine, Zithromax, Penicillin Social: Quit smoking 30 years ago, EtOH daily 1-2 drinks nightly, Denies illicit drugs Fam Hx: Non-contributory Present on Admission - Present on Admission Any Indicators Present on Admission: No Review of Systems - Review of Systems Review of Systems: 12 point ROS negative except noted in HPI above. Past Patient History - Infectious Disease Hx of Infectious Diseases: None - Past Social History Smoking Status: Former Smoker - CARDIAC Hx Hypertension: Yes - PULMONARY Hx Chronic Obstructive Pulmonary Disease (COPD): Yes - HEMATOLOGICAL/ONCOLOGICAL Hx Cancer: Yes (lung, mets to bone) - MUSCULOSKELETAL/RHEUMATOLOGICAL Hx Falls: No - PSYCHIATRIC Hx Substance Use: No - SURGICAL HISTORY Hx Surgeries: No - ANESTHESIA Hx Anesthesia Reactions: No Meds Allergies/Adverse Reactions: Allergies Allergy/AdvReac Type Severity Reaction Status Date / Time azithromycin AdvReac RASH Verified 03/11/18 20:40 [From Zithromax Z-Denzel] ketamine AdvReac RASH Verified 03/11/18 20:40 Penicillins AdvReac RASH Verified 03/11/18 20:40 Physical Exam - Constitutional Appears: Non-toxic, Agitated, Cachectic, Chronically Ill - Head Exam Head Exam: ATRAUMATIC, NORMAL INSPECTION, NORMOCEPHALIC - Eye Exam Eye Exam: EOMI, Normal appearance, PERRL - Respiratory Exam Respiratory Exam: Chest Wall Tenderness (near chest tube and pleur-x cath site, site clean and dry. Pt is also noted to have 2 tubes from R siide.), Decreased Breath Sounds (Worse on R than L). absent: Prolonged Expiratory Phase, Rales, Rhonchi, Wheezes - Cardiovascular Exam Cardiovascular Exam: RRR, +S1, +S2. absent: Gallop, Rubs - GI/Abdominal Exam GI & Abdominal Exam: Normal Bowel Sounds, Soft. absent: Distended, Firm, Guarding, Tenderness - Extremities Exam Extremities exam: Positive for: pedal edema (trace pedal edema present b/l.). Negative for: calf tenderness, tenderness - Back Exam Back exam: NORMAL INSPECTION. 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 ED from 03/11/18-04/04/18 w/ complaints of SOB. Pt is now with compassionate care team and will be managed per their recs. Plan: 1) Comfort Care: - Pt had decided with family to be placed in comfort care - Further recs per comfort care team. <Fred Sidhu - Last Filed: 04/05/18 13:56> Results - Vital Signs Recent Vital Signs: Last Vital Signs Temp 97.7 F 04/04/18 18:21 Pulse 98 H 04/04/18 18:21 Resp 20 04/04/18 18:21 BP 101/61 04/04/18 18:21 Pulse Ox Attending/Attestation - Attestation I have personally seen and examined this patient.: Yes I have fully participated in the care of the patient.: Yes I have reviewed all pertinent clinical information: Yes Notes (Text): 04/05/18 13:51 Patient was seen and examined with registered medical assistant. 67M w/ a reported PMH of adenocarcinoma of lune lungs, HTN, EtOH abuse, Anxiety, presented to [facility] on 03/11/18 w/ complaints of worsening SOB x2 weeks due to due to recurrent right sided pleural effusion, likely malignant and Possible Pneumonia. Patient had thoracentesis done on 01/11/19 and 1890 ml of fluid was removed. Repeat Chest X rays showed complete opacification of right side. Patient underwent chest tube placement followed by re positioning of chest tube.Repeat chest X ray today showed hydropneumo thorax.Patient was evaluated by CT surgery and underwent VATS. Temporarily he , was on Respiratory support after VATS Procedure, Chest X rays showed persistant Hydropneumothorax. Patient condition was discussed with patient and his yester by me and Hospice team.Patient has decided to be DNR and DNI.He has decided to go on Hospice and supportive measures only. He is not looking for any curative treatment.However he is not ready to give permission to take chest tube and Pleural cathter out. Patient will be discharged to Hospice. We will continue supprtive care. Patient is DNR/DNI Overall prognosis is guarded.
[2018-04-05] MEDS: Budesonide 0.5 mg/2 ml Inhal Susp UD IH SCH ×2 (07:31→20:23)
[2018-04-05] MEDS: Albuterol 0.5% Inhal Sol (2.5 mg/0.5 ml) UD IH SCH ×3 (07:31→20:22)
--- NOTE | 2018-04-05 10:14 | CP.PCM.PN ---
<Paloma Rodriguez - Last Filed: 04/05/18 16:13> Subjective - Date & Time of Evaluation Date of Evaluation: 04/05/18 Time of Evaluation: 16:02 - Subjective Subjective: Paloma Rodriguez, PGY-1, Medicine Progress Note for Dr. Sidhu: Pt was seen and examined this AM at bedside. Pt states that he is feeling much more comfortable today than yesterday. Pt also states that he is reluctant to pull chest tube out. He states that he had no acute issues overnight. Pts POACHER WRINGER OPERATOR was changed overnight from 4mg to 8mg but otherwise pt is more alert and awake compared to yesterday. Pt has no acute complaints at this time. Objective - Vital Signs/Intake and Output Vital Signs (last 24 hours): Temp Pulse Resp BP Pulse Ox 97.7 F 98 H 20 101/61 04/04/18 18:21 04/04/18 18:21 04/04/18 18:21 04/04/18 18:21 - Medications Medications: Current Medications Acetaminophen (Tylenol 650 Mg Supp) 650 mg RC Q4H PRN PRN Reason: Fever >100.4 F Albuterol Sulfate (Albuterol 0.5% Inhal Marilee (2.5 Mg/0.5 Ml) Ud) 2.5 mg IH [id number] [facility] Last Admin: 04/05/18 07:31 Dose: Not Given Budesonide (Pulmicort Respules) 0.5 mg IH [id number] [facility] Last Admin: 04/05/18 07:31 Dose: Not Given Morphine Sulfate (Morphine Cylinder Machine Operator 1 Mg/Ml) 30 mls @ 2 mls/hr IV PRN PRN; Protocol PRN Reason: POACHER WRINGER OPERATOR PER MD ORDER Lorazepam (Ativan) 0.5 mg IVP Q6H PRN; Protocol PRN Reason: Anxiety Prednisone (Prednisone Tab) 15 mg PO DAILY [facility] Last Admin: 04/05/18 09:30 Dose: Not Given - Constitutional Appears: Non-toxic, No Acute Distress, Cachectic, Chronically Ill - Head Exam Head Exam: ATRAUMATIC, NORMAL INSPECTION, NORMOCEPHALIC - Eye Exam Eye Exam: EOMI, Normal appearance, PERRL - Respiratory Exam Respiratory Exam: Decreased Breath Sounds (Worse than R than L. Pts lung is noted to be clear to ausculation on L). absent: Accessory Muscle Use, Rales, Rhonchi, Wheezes, Respiratory Distress, Stridor Additional comments: Pt is also noted to have 2 tubes from R side. Both chest tube and pleur-x cath still in place, sites are clean and dry. - Cardiovascular Exam Cardiovascular Exam: RRR, +S1, +S2. absent: Gallop, Rubs - GI/Abdominal Exam GI & Abdominal Exam: Soft, Normal Bowel Sounds. absent: Firm, Guarding, Rigid, Tenderness - Extremities Exam Extremities Exam: Normal Inspection, Pedal Edema (trace pitting edema present b/l). absent: Calf Tenderness - Back Exam Back Exam: NORMAL INSPECTION. 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 Pt is now with compassionate care team and will be managed per their recs. Plan: 1) Comfort Care: - Pt had decided with family to be placed in comfort care - Pt currently comfortable on POACHER WRINGER OPERATOR pump setting - Pt still refusing to pull chest tube out. - Further recs per comfort care team. Case seen and discussed with Dr. Nahum Rodriguez, PGY-1 <Fred Sidhu - Last Filed: 04/14/18 14:02> Objective - Vital Signs/Intake and Output Vital Signs (last 24 hours): Temp Pulse Resp BP Pulse Ox 97.7 F 98 H 20 101/61 95 04/04/18 18:21 04/04/18 18:21 04/05/18 20:20 04/04/18 18:21 04/13/18 20:00 Intake and Output: 04/14/18 04/14/18 06:59 18:59 Intake Total 30 4 Balance 30 4 - Medications Medications: Current Medications Acetaminophen (Tylenol 650 Mg Supp) 650 mg RC Q4H PRN PRN Reason: Fever >100.4 F Albuterol/Ipratropium (Duoneb 3 Mg/0.5 Mg (3 Ml) Ud) 3 ml IH [id number] PRN PRN Reason: Shortness of Breath Last Admin: 04/10/18 07:47 Dose: 3 ml Diphenhydramine HCl (Benadryl) 25 mg IVP Q8H PRN PRN Reason: Allergy symptoms Last Admin: 04/13/18 13:59 Dose: 25 mg Morphine Sulfate (Morphine Cylinder Machine Operator 1 Mg/Ml) 30 mls @ 4 mls/hr IV PRN PRN; Protocol PRN Reason: POACHER WRINGER OPERATOR PER MD ORDER Lorazepam (Ativan) 0.5 mg IVP Q6H PRN; Protocol PRN Reason: Anxiety Last Admin: 04/13/18 10:35 Dose: 0.5 mg Ondansetron HCl (Zofran Inj) 4 mg IVP Q4H PRN PRN Reason: Nausea/Vomiting Last Admin: 04/11/18 21:06 Dose: 4 mg Scopolamine (Transderm-Scop) 1 patch TD Q3D DAVID Last Admin: 04/12/18 11:42 Dose: 1 patch Attending/Attestation - Attestation I have personally seen and examined this patient.: Yes I have fully participated in the care of the patient.: Yes I have reviewed all pertinent clinical information, including history, physical exam and plan: Yes Notes (Text): 04/14/18 14:02 67M w/ a reported PMH of adenocarcinoma of lune lungs, HTN, EtOH abuse, Anxiety, presented to [facility] [place] ED on 03/11/18 w/ complaints of worsening SOB x2 weeks due to due to recurrent right sided pleural effusion, likely malignant and Possible Pneumonia. Patient had thoracentesis done on 01/11/19 and 1890 ml of fluid was removed. Repeat Chest X rays showed complete opacification of right side. Patient underwent chest tube placement followed by re positioning of chest tube. Repeat chest X ray today showed hydropneumo thorax.Patient was evaluated by CT surgery and underwent VATS.Temporarily he , was on Respiratory support after VATS Procedure, Chest X rays showed persistant Hydropneumothorax.Patient condition was discussed with patient and his yester by me and Hospice team.Patient has decided to be DNR and DNI.He has decided to go on Hospice and supportive measures only.He is not looking for any curative treatment. However he is not ready to give permission to take chest tube and Pleural catheter out.Patient is on Hospice and comfort measures now.
[2018-04-05] MEDS: Morphine PCA 1 mg/ml (30ml) 30 ML IV PRN (15:01)
[2018-04-06] MEDS: Albuterol 0.5% Inhal Sol (2.5 mg/0.5 ml) UD IH SCH ×3 (01:21→19:24)
[2018-04-06] MEDS: Morphine PCA 1 mg/ml (30ml) 30 ML IV PRN ×2 (06:44→22:20)
[2018-04-06] MEDS: Budesonide 0.5 mg/2 ml Inhal Susp UD IH SCH ×2 (07:24→19:25)
--- NOTE | 2018-04-06 12:50 | CP.PCM.PN ---
<Paloma Rodriguez - Last Filed: 04/07/18 00:26> Subjective - Date & Time of Evaluation Date of Evaluation: 04/06/18 Time of Evaluation: 15:03 - Subjective Subjective: Paloma Rodriguez, PGY-1, Medicine Progress Note for Dr. Sidhu: Pt was seen and examined this AM at bedside. Pt states that he is still feeling comfortable and that the pain is well controlled. Pt continues to state that he is reluctant to pull chest tube out. He states that he had no acute issues overnight. Pt has no acute complaints at this time. Objective - Vital Signs/Intake and Output Vital Signs (last 24 hours): Temp Pulse Resp BP Pulse Ox 97.7 F 98 H 20 101/61 100 04/04/18 18:21 04/04/18 18:21 04/05/18 20:20 04/04/18 18:21 04/05/18 20:20 Intake and Output: 04/06/18 04/06/18 06:59 18:59 Intake Total 430 Output Total 500 Balance -70 - Medications Medications: Current Medications Acetaminophen (Tylenol 650 Mg Supp) 650 mg RC Q4H PRN PRN Reason: Fever >100.4 F Albuterol Sulfate (Albuterol 0.5% Inhal Marilee (2.5 Mg/0.5 Ml) Ud) 2.5 mg IH [id number] [facility] Last Admin: 04/06/18 07:24 Dose: Not Given Albuterol/Ipratropium (Duoneb 3 Mg/0.5 Mg (3 Ml) Ud) 3 ml IH [id number] PRN PRN Reason: Shortness of Breath Budesonide (Pulmicort Respules) 0.5 mg IH [id number] [facility] Last Admin: 04/06/18 07:24 Dose: Not Given Morphine Sulfate (Morphine Position Clerk 1 Mg/Ml) 30 mls @ 2 mls/hr IV PRN PRN; Protocol PRN Reason: TEST RIDER PER MD ORDER Last Admin: 04/06/18 06:44 Dose: 2 mg/hr, 2 mls/hr Lorazepam (Ativan) 0.5 mg IVP Q6H PRN; Protocol PRN Reason: Anxiety Last Admin: 04/05/18 12:14 Dose: 0.5 mg Ondansetron HCl (Zofran Inj) 4 mg IVP Q4H PRN PRN Reason: Nausea/Vomiting Prednisone (Prednisone Tab) 15 mg PO DAILY [facility]ID Last Admin: 04/06/18 12:35 Dose: 15 mg - Constitutional Appears: Non-toxic, No Acute Distress, Cachectic, Chronically Ill - Head Exam Head Exam: ATRAUMATIC, NORMAL INSPECTION, NORMOCEPHALIC - Eye Exam Eye Exam: EOMI, Normal appearance, PERRL - Respiratory Exam Respiratory Exam: Decreased Breath Sounds (Worse R than L). absent: Accessory Muscle Use, Rales, Rhonchi, Wheezes, Respiratory Distress Additional comments: Pt is also noted to have 2 tubes from R side. Both chest tube and pleur-x cath still in place, sites are clean and dry - Cardiovascular Exam Cardiovascular Exam: RRR, +S1, +S2. absent: Gallop, Rubs - GI/Abdominal Exam GI & Abdominal Exam: Soft, Normal Bowel Sounds. absent: Firm, Guarding, Rigid, Tenderness - Extremities Exam Extremities Exam: Normal Inspection, Pedal Edema (trace pitting edema b/l). absent: Calf Tenderness - Back Exam Back Exam: NORMAL INSPECTION. 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 Pt is now with compassionate care team and will be managed per their recs. Plan: 1) Comfort Care: - Pt had decided with family to be placed in comfort care - Pt currently comfortable on TEST RIDER pump setting - PRN duonebs and stool softeners on board - Pt still refusing to pull chest tube out. - Further recs per comfort care team. Case seen and discussed with Dr. Nahum Rodriguez, PGY-1 <Fred Sidhu - Last Filed: 04/14/18 14:02> Objective - Vital Signs/Intake and Output Vital Signs (last 24 hours): Temp Pulse Resp BP Pulse Ox 97.7 F 98 H 20 101/61 95 04/04/18 18:21 04/04/18 18:21 04/05/18 20:20 04/04/18 18:21 04/13/18 20:00 Intake and Output: 04/14/18 04/14/18 06:59 18:59 Intake Total 30 4 Balance 30 4 - Medications Medications: Current Medications Acetaminophen (Tylenol 650 Mg Supp) 650 mg RC Q4H PRN PRN Reason: Fever >100.4 F Albuterol/Ipratropium (Duoneb 3 Mg/0.5 Mg (3 Ml) Ud) 3 ml IH [id number] PRN PRN Reason: Shortness of Breath Last Admin: 04/10/18 07:47 Dose: 3 ml Diphenhydramine HCl (Benadryl) 25 mg IVP Q8H PRN PRN Reason: Allergy symptoms Last Admin: 04/13/18 13:59 Dose: 25 mg Morphine Sulfate (Morphine Position Clerk 1 Mg/Ml) 30 mls @ 4 mls/hr IV PRN PRN; Protocol PRN Reason: TEST RIDER PER MD ORDER Lorazepam (Ativan) 0.5 mg IVP Q6H PRN; Protocol PRN Reason: Anxiety Last Admin: 04/13/18 10:35 Dose: 0.5 mg Ondansetron HCl (Zofran Inj) 4 mg IVP Q4H PRN PRN Reason: Nausea/Vomiting Last Admin: 04/11/18 21:06 Dose: 4 mg Scopolamine (Transderm-Scop) 1 patch TD Q3D DAVID Last Admin: 04/12/18 11:42 Dose: 1 patch Attending/Attestation - Attestation I have personally seen and examined this patient.: Yes I have fully participated in the care of the patient.: Yes I have reviewed all pertinent clinical information, including history, physical exam and plan: Yes
[2018-04-07] MEDS: Albuterol 0.5% Inhal Sol (2.5 mg/0.5 ml) UD IH SCH ×3 (01:04→19:56)
[2018-04-07] MEDS: Budesonide 0.5 mg/2 ml Inhal Susp UD IH SCH ×3 (07:58→19:56)
[2018-04-07] MEDS: Albuterol-Ipratrop 3 mg / 0.5 (3 ml) UD IH PRN (10:20)
--- NOTE | 2018-04-07 12:31 | CP.PCM.PN ---
<Paloma Rodriguez - Last Filed: 04/07/18 12:28> Subjective - Date & Time of Evaluation Date of Evaluation: 04/07/18 Time of Evaluation: 12:28 - Subjective Subjective: Paloma Rodriguez, PGY-1, Medicine Progress Note for Dr. Novak: Pt was seen and examined this AM at bedside. Pt states that he is still feeling comfortable and that the pain is well controlled. Pt continues to state that he is reluctant to pull chest tube out. He states that he had no acute issues overnight. Pt has no acute complaints at this time. Objective - Vital Signs/Intake and Output Vital Signs (last 24 hours): Temp Pulse Resp BP Pulse Ox 97.7 F 98 H 20 101/61 100 04/04/18 18:21 04/04/18 18:21 04/05/18 20:20 04/04/18 18:21 04/05/18 20:20 Intake and Output: 04/07/18 04/07/18 06:59 18:59 Intake Total 30 Output Total 575 Balance -545 - Medications Medications: Current Medications Acetaminophen (Tylenol 650 Mg Supp) 650 mg RC Q4H PRN PRN Reason: Fever >100.4 F Albuterol Sulfate (Albuterol 0.5% Inhal Marilee (2.5 Mg/0.5 Ml) Ud) 2.5 mg IH [id number] [facility] Last Admin: 04/07/18 07:58 Dose: Not Given Albuterol/Ipratropium (Duoneb 3 Mg/0.5 Mg (3 Ml) Ud) 3 ml IH [id number] PRN PRN Reason: Shortness of Breath Last Admin: 04/07/18 10:20 Dose: 3 ml Budesonide (Pulmicort Respules) 0.5 mg IH [id number] [facility] Last Admin: 04/07/18 10:20 Dose: 0.5 mg Docusate Sodium (Colace) 100 mg PO DAILY PRN PRN Reason: Constipation Morphine Sulfate (Morphine Power Supply Engineer 1 Mg/Ml) 30 mls @ 2 mls/hr IV PRN PRN; Protocol PRN Reason: TIE IN HAND PER MD ORDER Last Admin: 04/06/18 22:20 Dose: 2 mg/hr, 2 mls/hr Lorazepam (Ativan) 0.5 mg IVP Q6H PRN; Protocol PRN Reason: Anxiety Last Admin: 04/05/18 12:14 Dose: 0.5 mg Ondansetron HCl (Zofran Inj) 4 mg IVP Q4H PRN PRN Reason: Nausea/Vomiting Last Admin: 04/07/18 12:18 Dose: 4 mg Prednisone (Prednisone Tab) 15 mg PO DAILY DAVID Last Admin: 04/07/18 11:06 Dose: 15 mg - Constitutional Appears: No Acute Distress, Cachectic, Chronically Ill - Head Exam Head Exam: ATRAUMATIC, NORMAL INSPECTION, NORMOCEPHALIC - Eye Exam Eye Exam: EOMI, Normal appearance, PERRL - Respiratory Exam Respiratory Exam: Decreased Breath Sounds (Worse on R than L). absent: Accessory Muscle Use, Rales, Rhonchi, Wheezes, Respiratory Distress, Stridor Additional comments: Pt is also noted to have 2 tubes from R side. Both chest tube and pleur-x cath still in place, sites are clean and dry - Cardiovascular Exam Cardiovascular Exam: RRR, +S1, +S2. absent: Gallop, Rubs - GI/Abdominal Exam GI & Abdominal Exam: Soft, Normal Bowel Sounds. absent: Firm, Guarding, Rigid, Tenderness - Extremities Exam Extremities Exam: Normal Capillary Refill, Pedal Edema (2+ pitting edema noted b/l). absent: Calf Tenderness - Back Exam Back Exam: NORMAL INSPECTION. 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 Pt is now with compassionate care team and will be managed per their recs. Plan: 1) Comfort Care: - Pt had decided with family to be placed in comfort care - Pt currently comfortable on TIE IN HAND pump setting - PRN duonebs and stool softeners on board - Pt still refusing to pull chest tube out. - Further recs per comfort care team. Case seen and discussed with Dr. Scarlet Rodriguez, PGY-1 <Flor Novak - Last Filed: 04/07/18 14:07> Objective - Vital Signs/Intake and Output Vital Signs (last 24 hours): Temp Pulse Resp BP Pulse Ox 97.7 F 98 H 20 101/61 100 04/04/18 18:21 04/04/18 18:21 04/05/18 20:20 04/04/18 18:21 04/05/18 20:20 Intake and Output: 04/07/18 04/07/18 06:59 18:59 Intake Total 30 Output Total 575 Balance -545 - Medications Medications: Current Medications Acetaminophen (Tylenol 650 Mg Supp) 650 mg RC Q4H PRN PRN Reason: Fever >100.4 F Albuterol Sulfate (Albuterol 0.5% Inhal Marilee (2.5 Mg/0.5 Ml) Ud) 2.5 mg IH [id number] [facility] Last Admin: 04/07/18 07:58 Dose: Not Given Albuterol/Ipratropium (Duoneb 3 Mg/0.5 Mg (3 Ml) Ud) 3 ml IH [id number] PRN PRN Reason: Shortness of Breath Last Admin: 04/07/18 10:20 Dose: 3 ml Budesonide (Pulmicort Respules) 0.5 mg IH [id number] [facility] Last Admin: 04/07/18 10:20 Dose: 0.5 mg Docusate Sodium (Colace) 100 mg PO DAILY PRN PRN Reason: Constipation Morphine Sulfate (Morphine Power Supply Engineer 1 Mg/Ml) 30 mls @ 2 mls/hr IV PRN PRN; Protocol PRN Reason: TIE IN HAND PER MD ORDER Last Admin: 04/06/18 22:20 Dose: 2 mg/hr, 2 mls/hr Lorazepam (Ativan) 0.5 mg IVP Q6H PRN; Protocol PRN Reason: Anxiety Last Admin: 04/05/18 12:14 Dose: 0.5 mg Ondansetron HCl (Zofran Inj) 4 mg IVP Q4H PRN PRN Reason: Nausea/Vomiting Last Admin: 04/07/18 12:18 Dose: 4 mg Prednisone (Prednisone Tab) 15 mg PO DAILY [facility] Last Admin: 04/07/18 11:06 Dose: 15 mg Attending/Attestation - Attestation I have personally seen and examined this patient.: Yes I have fully participated in the care of the patient.: Yes I have reviewed all pertinent clinical information, including history, physical exam and plan: Yes Notes (Text): 04/07/18 14:03 67 year old male with past medical history of adenocarcinoma of the lungs, hypertension, anxiety and alcohol abuse who initially presented with shortness of breath secondary to recurrent right sided pleural effusion. Patient had thoracocentesis done with chest tube placement. Repeat CXR showed hydropneumothorax and patient underwent VATS. He was temporarily on respiratory support s/p VATS procedure. After extensive discussion with family and patient they decided on hospice care which was initiated this past Saturday. Continue with supportive care as per hospice team. Patient is not ready to have chest tube / pleural catheter removed as of yet. Family is at bedside and questions were answered. Patient is DNR/DNI. Flor Novak MD Hospitalist.
[2018-04-07] MEDS: Morphine PCA 1 mg/ml (30ml) 30 ML IV PRN (14:40)
[2018-04-08] MEDS: Albuterol 0.5% Inhal Sol (2.5 mg/0.5 ml) UD IH SCH ×4 (01:24→20:45)
[2018-04-08] MEDS: Budesonide 0.5 mg/2 ml Inhal Susp UD IH SCH ×2 (07:38→20:45)
[2018-04-08] MEDS: Morphine PCA 1 mg/ml (30ml) 30 ML IV PRN (07:54)
--- NOTE | 2018-04-08 14:56 | CP.PCM.PN ---
Subjective - Date & Time of Evaluation Date of Evaluation: 04/08/18 Time of Evaluation: 12:00 - Subjective Subjective: Alert, offers no complaints Objective - Vital Signs/Intake and Output Vital Signs (last 24 hours): Temp Pulse Resp BP Pulse Ox 97.7 F 98 H 20 101/61 100 04/04/18 18:21 04/04/18 18:21 04/05/18 20:20 04/04/18 18:21 04/05/18 20:20 Intake and Output: 04/08/18 04/08/18 06:59 18:59 Intake Total 30 Balance 30 - Medications Medications: Current Medications Acetaminophen (Tylenol 650 Mg Supp) 650 mg RC Q4H PRN PRN Reason: Fever >100.4 F Albuterol Sulfate (Albuterol 0.5% Inhal Marilee (2.5 Mg/0.5 Ml) Ud) 2.5 mg IH [id number] [facility] Last Admin: 04/08/18 13:01 Dose: Not Given Albuterol/Ipratropium (Duoneb 3 Mg/0.5 Mg (3 Ml) Ud) 3 ml IH [id number] PRN PRN Reason: Shortness of Breath Last Admin: 04/07/18 10:20 Dose: 3 ml Budesonide (Pulmicort Respules) 0.5 mg IH [id number] [facility] Last Admin: 04/08/18 07:38 Dose: 0.5 mg Docusate Sodium (Colace) 100 mg PO DAILY PRN PRN Reason: Constipation Morphine Sulfate (Morphine Compliance And Control Analyst 1 Mg/Ml) 30 mls @ 2 mls/hr IV PRN PRN; Protocol PRN Reason: SUBMARINE ELEMENT COORDINATOR PER MD ORDER Last Admin: 04/08/18 07:54 Dose: 2 mg/hr, 2 mls/hr Lorazepam (Ativan) 0.5 mg IVP Q6H PRN; Protocol PRN Reason: Anxiety Last Admin: 04/07/18 22:07 Dose: 0.5 mg Ondansetron HCl (Zofran Inj) 4 mg IVP Q4H PRN PRN Reason: Nausea/Vomiting Last Admin: 04/07/18 12:18 Dose: 4 mg Prednisone (Prednisone Tab) 15 mg PO DAILY [facility] Last Admin: 04/08/18 10:41 Dose: 15 mg - Constitutional Appears: Cachectic, Chronically Ill - Eye Exam Eye Exam: Normal appearance, PERRL - ENT Exam ENT Exam: Mucous Membranes Moist - Respiratory Exam Respiratory Exam: Decreased Breath Sounds Additional comments: right chest tube to continuous suction - Cardiovascular Exam Cardiovascular Exam: REGULAR RHYTHM, +S1, +S2 - GI/Abdominal Exam GI & Abdominal Exam: Soft, Normal Bowel Sounds - Extremities Exam Extremities Exam: Pedal Edema - Neurological Exam Neurological Exam: Alert, Oriented x3 - Skin Skin Exam: Dry, Pallor Assessment and Plan - Assessment and Plan (Free Text) Assessment: 67 year old male with history of lung cancer who was admitted to acute care with large right pleural effusion s/p thoracentisis /chest tube, sepsis, lethargy, intractable pain, respiratory failure. He was transitioned to [place] hospice care on 04/05/18 for pain and symptom management The patient is alert, appetite fair. States he is having a good day today. States his pain is fairly well controlled. Still having large amount of drainage from chest tube. Plan: Morphine 2 mg/hr continuos infusions, power plant manager at 0.5mg every 30 minutes Ativan 0.5 mg IVP every 6 hours as needed Chest tube to suction Nebulizers as ordered Tylenol for fever
--- NOTE | 2018-04-08 16:23 | CP.PCM.PN ---
<Paloma Rodriguez - Last Filed: 04/08/18 18:14> Subjective - Date & Time of Evaluation Date of Evaluation: 04/08/18 Time of Evaluation: 18:14 - Subjective Subjective: Paloma Rodriguez, PGY-1, Medicine Progress Note for Dr. Novak: Pt was seen and examined this AM at bedside. Pt states that he is still feeling comfortable and that the pain is well controlled. Pt continues to state that he does not want to pull chest tube out and that he has made up his mind about it. He states that he had no acute issues overnight. Pt has no acute complaints at this time. Objective - Vital Signs/Intake and Output Vital Signs (last 24 hours): Temp Pulse Resp BP Pulse Ox 97.7 F 98 H 20 101/61 100 04/04/18 18:21 04/04/18 18:21 04/05/18 20:20 04/04/18 18:21 04/05/18 20:20 Intake and Output: 04/08/18 04/08/18 06:59 18:59 Intake Total 30 Balance 30 - Medications Medications: Current Medications Acetaminophen (Tylenol 650 Mg Supp) 650 mg RC Q4H PRN PRN Reason: Fever >100.4 F Albuterol Sulfate (Albuterol 0.5% Inhal Marilee (2.5 Mg/0.5 Ml) Ud) 2.5 mg IH [id number] [facility] Last Admin: 04/08/18 13:01 Dose: Not Given Albuterol/Ipratropium (Duoneb 3 Mg/0.5 Mg (3 Ml) Ud) 3 ml IH [id number] PRN PRN Reason: Shortness of Breath Last Admin: 04/07/18 10:20 Dose: 3 ml Budesonide (Pulmicort Respules) 0.5 mg IH [id number] [facility] Last Admin: 04/08/18 07:38 Dose: 0.5 mg Docusate Sodium (Colace) 100 mg PO DAILY PRN PRN Reason: Constipation Morphine Sulfate (Morphine Line Cook 1 Mg/Ml) 30 mls @ 2 mls/hr IV PRN PRN; Protocol PRN Reason: OUTREACH LIAISON PER MD ORDER Last Admin: 04/08/18 07:54 Dose: 2 mg/hr, 2 mls/hr Lorazepam (Ativan) 0.5 mg IVP Q6H PRN; Protocol PRN Reason: Anxiety Last Admin: 04/07/18 22:07 Dose: 0.5 mg Ondansetron HCl (Zofran Inj) 4 mg IVP Q4H PRN PRN Reason: Nausea/Vomiting Last Admin: 04/07/18 12:18 Dose: 4 mg Prednisone (Prednisone Tab) 15 mg PO DAILY DAVID Last Admin: 04/08/18 10:41 Dose: 15 mg - Constitutional Appears: Non-toxic, No Acute Distress, Cachectic, Chronically Ill - Head Exam Head Exam: ATRAUMATIC, NORMAL INSPECTION, NORMOCEPHALIC - Eye Exam Eye Exam: EOMI, Normal appearance, PERRL - Respiratory Exam Respiratory Exam: Decreased Breath Sounds (Worse on R than L). absent: Accessory Muscle Use, Rales, Rhonchi, Wheezes, Respiratory Distress Additional comments: Pt is also noted to have 2 tubes from R side. Both chest tube and pleur-x cath still in place, sites are clean and dry - Cardiovascular Exam Cardiovascular Exam: RRR, +S1, +S2. absent: Gallop, Rubs - GI/Abdominal Exam GI & Abdominal Exam: Soft, Normal Bowel Sounds. absent: Firm, Guarding, Rigid, Tenderness - Extremities Exam Extremities Exam: Normal Capillary Refill, Normal Inspection, Pedal Edema (2+ b/l) - Back Exam Back Exam: NORMAL INSPECTION. absent: CVA tenderness (L), CVA tenderness (R) - Neurological Exam Neurological Exam: Alert, Awake, Oriented x3 - Psychiatric Exam Psychiatric exam: Normal Affect, Normal Mood - Skin Skin Exam: Dry, Normal Color, Warm Assessment and Plan - Assessment and Plan (Free Text) Assessment: 67M w/ a reported PMH of Lung adenocarcinoma CA w/ mets to liver (s/p ablation) and bone, HTN, EtOH abuse, Anxeity, presented to [facility] ED from 03/11/18-04/04/18 w/ complaints of SOB. Pt is now with compassionate care team and will be managed per their recs. Plan: 1) Comfort Care: - Pt had decided with family to be placed in comfort care - Pt currently comfortable on OUTREACH LIAISON pump setting - PRN duonebs and stool softeners on board - Pt still refusing to pull chest tube out. - Further recs per comfort care team. Dispo: Will cont to f/u with pt nurse and comfort care team in regards to inpt vs outpt hospice. Case seen and discussed with Dr. Scarlet Rodriguez, PGY-1 <Flor Novak - Last Filed: 04/09/18 07:32> Objective - Vital Signs/Intake and Output Vital Signs (last 24 hours): Temp Pulse Resp BP Pulse Ox 97.7 F 98 H 20 101/61 100 04/04/18 18:21 04/04/18 18:21 04/05/18 20:20 04/04/18 18:21 04/05/18 20:20 Intake and Output: 04/09/18 04/09/18 06:59 18:59 Intake Total 30 Balance 30 - Medications Medications: Current Medications Acetaminophen (Tylenol 650 Mg Supp) 650 mg RC Q4H PRN PRN Reason: Fever >100.4 F Albuterol Sulfate (Albuterol 0.5% Inhal Marilee (2.5 Mg/0.5 Ml) Ud) 2.5 mg IH [id number] [facility] Last Admin: 04/09/18 03:15 Dose: Not Given Albuterol/Ipratropium (Duoneb 3 Mg/0.5 Mg (3 Ml) Ud) 3 ml IH [id number] PRN PRN Reason: Shortness of Breath Last Admin: 04/08/18 20:45 Dose: 3 ml Budesonide (Pulmicort Respules) 0.5 mg IH [id number] [facility] Last Admin: 04/08/18 20:45 Dose: 0.5 mg Docusate Sodium (Colace) 100 mg PO DAILY PRN PRN Reason: Constipation Morphine Sulfate (Morphine Line Cook 1 Mg/Ml) 30 mls @ 2 mls/hr IV PRN PRN; Protocol PRN Reason: OUTREACH LIAISON PER MD ORDER Last Admin: 04/09/18 00:24 Dose: 2 mg/hr, 2 mls/hr Lorazepam (Ativan) 0.5 mg IVP Q6H PRN; Protocol PRN Reason: Anxiety Last Admin: 04/07/18 22:07 Dose: 0.5 mg Ondansetron HCl (Zofran Inj) 4 mg IVP Q4H PRN PRN Reason: Nausea/Vomiting Last Admin: 04/07/18 12:18 Dose: 4 mg Prednisone (Prednisone Tab) 15 mg PO DAILY DAVID Last Admin: 04/08/18 10:41 Dose: 15 mg Attending/Attestation - Attestation I have personally seen and examined this patient.: Yes I have fully participated in the care of the patient.: Yes I have reviewed all pertinent clinical information, including history, physical exam and plan: Yes Notes (Text): 04/08/18 67 year old male with past medical history of adenocarcinoma of the lungs, hypertension, anxiety and alcohol abuse who initially presented with shortness of breath secondary to recurrent right sided pleural effusion. Patient had thoracocentesis done with chest tube placement. Repeat CXR showed hydropneumothorax and patient underwent VATS. He was temporarily on respiratory support s/p VATS procedure. After extensive discussion with family and patient they decided on hospice care which was initiated this past Saturday. Continue with supportive care as per hospice team. Patient states he is not ready to have chest tube removed as of yet. Hospice / palliative care follow up today was appreciated. Patient is DNR/DNI. Flor Novak MD Hospitalist.
[2018-04-08] MEDS: Albuterol-Ipratrop 3 mg / 0.5 (3 ml) UD IH PRN (20:45)
[2018-04-09] MEDS: Morphine PCA 1 mg/ml (30ml) 30 ML IV PRN ×3 (00:24→16:53)
[2018-04-09] MEDS: Albuterol 0.5% Inhal Sol (2.5 mg/0.5 ml) UD IH SCH ×2 (03:15→07:31)
[2018-04-09] MEDS: Budesonide 0.5 mg/2 ml Inhal Susp UD IH SCH (07:30)
[2018-04-09] MEDS ORDERED: Morphine PCA 1 mg/ml (30ml) 30 ML IV PRN (10:59)
--- NOTE | 2018-04-09 12:22 | CP.PCM.PN ---
Subjective - Date & Time of Evaluation Date of Evaluation: 04/09/18 Time of Evaluation: 12:00 - Subjective Subjective: Alert. Complaining of tingling/ heaviness in both lower extremities. Has right sided chest discomfort. Objective - Vital Signs/Intake and Output Vital Signs (last 24 hours): Temp Pulse Resp BP Pulse Ox 97.7 F 98 H 20 101/61 100 04/04/18 18:21 04/04/18 18:21 04/05/18 20:20 04/04/18 18:21 04/05/18 20:20 Intake and Output: 04/09/18 04/09/18 06:59 18:59 Intake Total 30 Balance 30 - Medications Medications: Current Medications Acetaminophen (Tylenol 650 Mg Supp) 650 mg RC Q4H PRN PRN Reason: Fever >100.4 F Albuterol Sulfate (Albuterol 0.5% Inhal Marilee (2.5 Mg/0.5 Ml) Ud) 2.5 mg IH [id number] [facility] Last Admin: 04/09/18 07:31 Dose: 2.5 mg Albuterol/Ipratropium (Duoneb 3 Mg/0.5 Mg (3 Ml) Ud) 3 ml IH [id number] PRN PRN Reason: Shortness of Breath Last Admin: 04/08/18 20:45 Dose: 3 ml Budesonide (Pulmicort Respules) 0.5 mg IH [id number] [facility] Last Admin: 04/09/18 07:30 Dose: 0.5 mg Docusate Sodium (Colace) 100 mg PO DAILY PRN PRN Reason: Constipation Gabapentin (Neurontin) 300 mg PO BID [facility]; Protocol Lorazepam (Ativan) 0.5 mg IVP Q6H PRN; Protocol PRN Reason: Anxiety Last Admin: 04/07/18 22:07 Dose: 0.5 mg Ondansetron HCl (Zofran Inj) 4 mg IVP Q4H PRN PRN Reason: Nausea/Vomiting Last Admin: 04/07/18 12:18 Dose: 4 mg Prednisone (Prednisone Tab) 15 mg PO DAILY [facility] Last Admin: 04/09/18 10:13 Dose: 15 mg - Constitutional Appears: Cachectic, Chronically Ill - Eye Exam Eye Exam: Normal appearance - ENT Exam ENT Exam: Mucous Membranes Moist - Respiratory Exam Respiratory Exam: Chest Wall Tenderness, Decreased Breath Sounds, Rhonchi Additional comments: right chest tube to water seal suction - Cardiovascular Exam Cardiovascular Exam: REGULAR RHYTHM, +S1, +S2 - GI/Abdominal Exam GI & Abdominal Exam: Soft Additional comments: LUQ tenderness - Extremities Exam Additional comments: 2 + edema - Back Exam Back Exam: NORMAL INSPECTION - Neurological Exam Neurological Exam: Alert - Skin Skin Exam: Dry, Pallor Assessment and Plan - Assessment and Plan (Free Text) Assessment: 67 year old male with history of lung cancer, right pneumothorax s/p chest tube who is admitted to [facility] for pain and symptom management. Discussed increasing Morphine dose to 3mg and adding Neurontin. Patient is in agreement with plan. Still has large amount of drainage from right chest tube. Hospice nurse also into speak with patient. Psychosocial support provided Plan: Morphine increased to 3mg/hr continuos infusion, BDC MANAGER 0.5 mg every 30 minutes Will add Neurontin 300 mg BID for neuropathic pain in lower extremities Tylenol as needed for fever Nebulizers Colace Zofran prn R Chest tube to water seal drainage
--- NOTE | 2018-04-09 13:16 | CP.PCM.PN ---
<Paloma Rodriguez - Last Filed: 04/09/18 19:42> Subjective - Date & Time of Evaluation Date of Evaluation: 04/09/18 Time of Evaluation: 10:00 - Subjective Subjective: Paloma Rodriguez, PGY-1, Medicine Progress Note for Dr. Novak: Pt was seen and examined this AM at bedside. Pt states that he is still feeling comfortable and that the pain is well controlled. He states that overnight he had b/l leg pain and had difficulty sleeping because of it. Pt continues to state that he does not want to pull chest tube out and that he has made up his mind about it. Pt has no acute complaints at this time. Objective - Vital Signs/Intake and Output Vital Signs (last 24 hours): Temp Pulse Resp BP Pulse Ox 97.7 F 98 H 20 101/61 100 04/04/18 18:21 04/04/18 18:21 04/05/18 20:20 04/04/18 18:21 04/05/18 20:20 Intake and Output: 04/09/18 04/09/18 06:59 18:59 Intake Total 30 Balance 30 - Medications Medications: Current Medications Acetaminophen (Tylenol 650 Mg Supp) 650 mg RC Q4H PRN PRN Reason: Fever >100.4 F Albuterol Sulfate (Albuterol 0.5% Inhal Marilee (2.5 Mg/0.5 Ml) Ud) 2.5 mg IH [id number] DAVID Last Admin: 04/09/18 07:31 Dose: 2.5 mg Albuterol/Ipratropium (Duoneb 3 Mg/0.5 Mg (3 Ml) Ud) 3 ml IH [id number] PRN PRN Reason: Shortness of Breath Last Admin: 04/08/18 20:45 Dose: 3 ml Budesonide (Pulmicort Respules) 0.5 mg IH [id number] [facility] Last Admin: 04/09/18 07:30 Dose: 0.5 mg Docusate Sodium (Colace) 100 mg PO DAILY PRN PRN Reason: Constipation Gabapentin (Neurontin) 300 mg PO BID DAVID; Protocol Morphine Sulfate (Morphine Automation Consultant 1 Mg/Ml) 30 mls @ 3 mls/hr IV PRN PRN; Protocol PRN Reason: FITNESS TRAINER PER MD ORDER Last Admin: 04/09/18 12:36 Dose: 3 mg/hr, 3 mls/hr Lorazepam (Ativan) 0.5 mg IVP Q6H PRN; Protocol PRN Reason: Anxiety Last Admin: 04/07/18 22:07 Dose: 0.5 mg Ondansetron HCl (Zofran Inj) 4 mg IVP Q4H PRN PRN Reason: Nausea/Vomiting Last Admin: 04/07/18 12:18 Dose: 4 mg Prednisone (Prednisone Tab) 15 mg PO DAILY DAVID Last Admin: 04/09/18 10:13 Dose: 15 mg - Constitutional Appears: Non-toxic, No Acute Distress, Cachectic, Chronically Ill - Head Exam Head Exam: ATRAUMATIC, NORMAL INSPECTION, NORMOCEPHALIC - Eye Exam Eye Exam: EOMI, Normal appearance, PERRL - Respiratory Exam Respiratory Exam: Decreased Breath Sounds (Worse on R than L). absent: Accessory Muscle Use, Rales, Rhonchi, Wheezes, Respiratory Distress Additional comments: Pt is also noted to have 2 tubes from R side. Both chest tube and pleur-x cath still in place, sites are clean and dry - Cardiovascular Exam Cardiovascular Exam: RRR, +S1, +S2. absent: Gallop, Rubs - GI/Abdominal Exam GI & Abdominal Exam: Soft, Normal Bowel Sounds. absent: Firm, Guarding, Rigid, Tenderness - Extremities Exam Extremities Exam: Normal Inspection, Pedal Edema (2+ pitting edema b/l). absent: Calf Tenderness - Back Exam Back Exam: NORMAL INSPECTION. absent: CVA tenderness (L), CVA tenderness (R) - Neurological Exam Neurological Exam: Alert, Awake, Oriented x3 - Psychiatric Exam Psychiatric exam: Normal Affect, Normal Mood - Skin Skin Exam: Dry, Normal Color, Warm Assessment and Plan - Assessment and Plan (Free Text) Assessment: 67M w/ a reported PMH of Lung adenocarcinoma CA w/ mets to liver (s/p ablation and VATS procedure) and bone, HTN, EtOH abuse, Anxeity, presented to [facility] ED from 03/11/18-04/04/18 w/ complaints of SOB. Pt is now with compassionate care team and will be managed per their recs. Plan: 1) Comfort Care: - Pt had decided with family to be placed in comfort care - Pt currently comfortable on FITNESS TRAINER pump setting - Gabapentin added on per comfort care team - PRN duonebs and stool softeners on board - Pt still refusing to pull chest tube out. - Further recs per comfort care team. Dispo: Will cont to f/u with pt nurse and comfort care team in regards to inpt vs outpt hospice. - Hospice Contact: Darlyn Case seen and discussed with Dr. Scarlet Rodriguez, PGY-1 <Flor Novak - Last Filed: 04/10/18 06:46> Objective - Vital Signs/Intake and Output Vital Signs (last 24 hours): Temp Pulse Resp BP Pulse Ox 97.7 F 98 H 20 101/61 100 04/04/18 18:21 04/04/18 18:21 04/05/18 20:20 04/04/18 18:21 04/05/18 20:20 Intake and Output: 04/09/18 04/10/18 18:59 06:59 Intake Total 30 210 Output Total 300 Balance 30 -90 - Medications Medications: Current Medications Acetaminophen (Tylenol 650 Mg Supp) 650 mg RC Q4H PRN PRN Reason: Fever >100.4 F Albuterol Sulfate (Albuterol 0.5% Inhal Marilee (2.5 Mg/0.5 Ml) Ud) 2.5 mg IH Q6 HRESP [facility] Last Admin: 04/09/18 07:31 Dose: 2.5 mg Albuterol/Ipratropium (Duoneb 3 Mg/0.5 Mg (3 Ml) Ud) 3 ml IH [id number] PRN PRN Reason: Shortness of Breath Last Admin: 04/08/18 20:45 Dose: 3 ml Budesonide (Pulmicort Respules) 0.5 mg IH [id number] [facility] Last Admin: 04/09/18 07:30 Dose: 0.5 mg Docusate Sodium (Colace) 100 mg PO DAILY PRN PRN Reason: Constipation Gabapentin (Neurontin) 300 mg PO BID [facility]; Protocol Last Admin: 04/09/18 17:53 Dose: 300 mg Morphine Sulfate (Morphine Automation Consultant 1 Mg/Ml) 30 mls @ 3 mls/hr IV PRN PRN; Protocol PRN Reason: FITNESS TRAINER PER MD ORDER Last Admin: 04/10/18 02:47 Dose: 3 mg/hr, 3 mls/hr Lorazepam (Ativan) 0.5 mg IVP Q6H PRN; Protocol PRN Reason: Anxiety Last Admin: 04/07/18 22:07 Dose: 0.5 mg Ondansetron HCl (Zofran Inj) 4 mg IVP Q4H PRN PRN Reason: Nausea/Vomiting Last Admin: 04/07/18 12:18 Dose: 4 mg Prednisone (Prednisone Tab) 15 mg PO DAILY DAVID Last Admin: 04/09/18 10:13 Dose: 15 mg Attending/Attestation - Attestation I have personally seen and examined this patient.: Yes I have fully participated in the care of the patient.: Yes I have reviewed all pertinent clinical information, including history, physical exam and plan: Yes Notes (Text): 04/09/18 67 year old male with past medical history of adenocarcinoma of the lungs, hypertension, anxiety and alcohol abuse who initially presented with shortness of breath secondary to recurrent right sided pleural effusion. Patient had thoracocentesis done with chest tube placement. Repeat CXR showed hydropneumothorax and patient underwent VATS. He was temporarily on respiratory support s/p VATS procedure. After extensive discussion with family and patient they decided on hospice care which was initiated this past Saturday. Continue with supportive care as per hospice team. Patient states he is not ready to have chest tube removed as of yet. Hospice / palliative care follow up today was appreciated; added gabapentin for neuropathy. Daughter is at bedside and questions were answered. Patient is DNR/DNI. Flor Novak MD Hospitalist.
[2018-04-10] MEDS: Morphine PCA 1 mg/ml (30ml) 30 ML IV PRN ×3 (02:47→22:11)
[2018-04-10] MEDS: Budesonide 0.5 mg/2 ml Inhal Susp UD IH SCH ×2 (07:47→19:33)
[2018-04-10] MEDS: Albuterol 0.5% Inhal Sol (2.5 mg/0.5 ml) UD IH SCH ×4 (07:47→19:33)
[2018-04-10] MEDS: Albuterol-Ipratrop 3 mg / 0.5 (3 ml) UD IH PRN (07:47)
--- NOTE | 2018-04-10 19:02 | CP.PCM.PN ---
<Paloma Rodriguez - Last Filed: 04/10/18 21:46> Subjective - Date & Time of Evaluation Date of Evaluation: 04/10/18 Time of Evaluation: 10:00 - Subjective Subjective: Paloma Rodriguez, PGY-1, Medicine Progress Note for Dr. Novak: Pt was seen and examined this AM at bedside. Pt states that he is still feeling comfortable and that the pain is well controlled and the leg pain responded to the gabapentin. He states that overnight he did not have any complaints and was able to sleep earlier than normal. Pt continues to state that he does not want to pull chest tube out and that he has made up his mind about it. Pt has no acute complaints at this time. Objective - Vital Signs/Intake and Output Vital Signs (last 24 hours): Temp Pulse Resp BP Pulse Ox 97.7 F 98 H 20 101/61 100 04/04/18 18:21 04/04/18 18:21 04/05/18 20:20 04/04/18 18:21 04/05/18 20:20 Intake and Output: 04/10/18 04/11/18 18:59 06:59 Intake Total 27.35 Output Total 300 Balance -272.65 - Medications Medications: Current Medications Acetaminophen (Tylenol 650 Mg Supp) 650 mg RC Q4H PRN PRN Reason: Fever >100.4 F Albuterol Sulfate (Albuterol 0.5% Inhal Marilee (2.5 Mg/0.5 Ml) Ud) 2.5 mg IH [id number] [facility] Last Admin: 04/10/18 13:07 Dose: 2.5 mg Albuterol/Ipratropium (Duoneb 3 Mg/0.5 Mg (3 Ml) Ud) 3 ml IH [id number] PRN PRN Reason: Shortness of Breath Last Admin: 04/10/18 07:47 Dose: 3 ml Budesonide (Pulmicort Respules) 0.5 mg IH [id number] [facility] Last Admin: 04/10/18 07:47 Dose: 0.5 mg Docusate Sodium (Colace) 100 mg PO DAILY PRN PRN Reason: Constipation Gabapentin (Neurontin) 300 mg PO BID [facility]; Protocol Last Admin: 04/10/18 17:52 Dose: 300 mg Morphine Sulfate (Morphine Vice President [employer] 1 Mg/Ml) 30 mls @ 3 mls/hr IV PRN PRN; Protocol PRN Reason: [employer] PER MD ORDER Last Admin: 04/10/18 12:15 Dose: 3 mg/hr, 3 mls/hr Lorazepam (Ativan) 0.5 mg IVP Q6H PRN; Protocol PRN Reason: Anxiety Last Admin: 04/07/18 22:07 Dose: 0.5 mg Ondansetron HCl (Zofran Inj) 4 mg IVP Q4H PRN PRN Reason: Nausea/Vomiting Last Admin: 04/07/18 12:18 Dose: 4 mg Prednisone (Prednisone Tab) 15 mg PO DAILY DAVID Last Admin: 04/10/18 10:30 Dose: Not Given - Constitutional Appears: Well, Non-toxic, No Acute Distress - Eye Exam Eye Exam: EOMI, Normal appearance, PERRL - Respiratory Exam Respiratory Exam: Decreased Breath Sounds (R worse than L ). absent: Accessory Muscle Use, Rhonchi, Wheezes, Respiratory Distress, Stridor Additional comments: Pt is also noted to have 2 tubes from R side. Both chest tube and pleur-x cath still in place, sites are clean and dry - Cardiovascular Exam Cardiovascular Exam: RRR, +S1, +S2. absent: Gallop, Rubs - GI/Abdominal Exam GI & Abdominal Exam: Soft, Normal Bowel Sounds. absent: Firm, Guarding, Rigid, Tenderness - Extremities Exam Extremities Exam: Pedal Edema (2+ edema b/l) - Back Exam Back Exam: NORMAL INSPECTION. absent: CVA tenderness (L), CVA tenderness (R) - Neurological Exam Neurological Exam: Alert, Awake, Oriented x3 - Psychiatric Exam Psychiatric exam: Normal Affect, Normal Mood - Skin Skin Exam: Dry, Intact, Normal Color, Warm Assessment and Plan - Assessment and Plan (Free Text) Assessment: 67M w/ a reported PMH of Lung adenocarcinoma CA w/ mets to liver (s/p ablation and VATS procedure) and bone, HTN, EtOH abuse, Anxeity, presented to [facility] [place]18[place]04/04/18 w/ complaints of SOB. Pt is now with compassionate care team and will be managed per their recs. Plan: 1) Comfort Care: - Pt had decided with family to be placed in comfort care - Pt currently comfortable on [employer] pump setting - Gabapentin added on per comfort care team - PRN duonebs and stool softeners on board - Pt still refusing to pull chest tube out. - Further recs per comfort care team. Dispo: Will cont to f/u with pt nurse and comfort care team in regards to inpt vs outpt hospice. - Hospice Contact: Darlyn Case seen and discussed with Dr. Scarlet Rodriguez, PGY-1 <Flor Novak - Last Filed: 04/11/18 08:02> Objective - Vital Signs/Intake and Output Vital Signs (last 24 hours): Temp Pulse Resp BP Pulse Ox 97.7 F 98 H 20 101/61 95 04/04/18 18:21 04/04/18 18:21 04/05/18 20:20 04/04/18 18:21 04/10/18 20:00 Intake and Output: 04/11/18 04/11/18 06:59 18:59 Intake Total 210 Output Total 300 Balance -90 - Medications Medications: Current Medications Acetaminophen (Tylenol 650 Mg Supp) 650 mg RC Q4H PRN PRN Reason: Fever >100.4 F Albuterol Sulfate (Albuterol 0.5% Inhal Marilee (2.5 Mg/0.5 Ml) Ud) 2.5 mg IH [id number] [facility] Last Admin: 04/11/18 07:20 Dose: 2.5 mg Albuterol/Ipratropium (Duoneb 3 Mg/0.5 Mg (3 Ml) Ud) 3 ml IH [id number] PRN PRN Reason: Shortness of Breath Last Admin: 04/10/18 07:47 Dose: 3 ml Budesonide (Pulmicort Respules) 0.5 mg IH [id number] [facility] Last Admin: 04/11/18 07:20 Dose: 0.5 mg Docusate Sodium (Colace) 100 mg PO DAILY PRN PRN Reason: Constipation Gabapentin (Neurontin) 300 mg PO BID [facility]; Protocol Last Admin: 04/10/18 17:52 Dose: 300 mg Morphine Sulfate (Morphine Vice [employer] 1 Mg/Ml) 30 mls @ 3 mls/hr IV PRN PRN; Protocol PRN Reason: [employer] PER MD ORDER Last Admin: 04/10/18 22:11 Dose: 3 mg/hr, 3 mls/hr Lorazepam (Ativan) 0.5 mg IVP Q6H PRN; Protocol PRN Reason: Anxiety Last Admin: 04/07/18 22:07 Dose: 0.5 mg Ondansetron HCl (Zofran Inj) 4 mg IVP Q4H PRN PRN Reason: Nausea/Vomiting Last Admin: 04/07/18 12:18 Dose: 4 mg Prednisone (Prednisone Tab) 15 mg PO DAILY DAVID Last Admin: 04/10/18 10:30 Dose: Not Given Attending/Attestation - Attestation I have personally seen and examined this patient.: Yes I have fully participated in the care of the patient.: Yes I have reviewed all pertinent clinical information, including history, physical exam and plan: Yes Notes (Text): 04/10/18 67 year old male with past medical history of adenocarcinoma of the lungs, hypertension, anxiety and alcohol abuse who initially presented with shortness of breath secondary to recurrent right sided pleural effusion. Patient had thoracocentesis done with chest tube placement. Repeat CXR showed hydropneumothorax and patient underwent VATS. He was temporarily on respiratory support s/p VATS procedure. After extensive discussion with family and patient they decided on hospice care which was initiated last week. Continue with supportive care as per hospice team. Added gabapentin for neuropathy with some improvement of symptoms. Patient states he is not ready to have chest tube removed as of yet. Daughter is at bedside and questions were answered. Patient is DNR/DNI. Flor Novak MD Hospitalist.
[2018-04-11] MEDS: Albuterol 0.5% Inhal Sol (2.5 mg/0.5 ml) UD IH SCH ×4 (01:59→19:23)
[2018-04-11] MEDS: Budesonide 0.5 mg/2 ml Inhal Susp UD IH SCH ×2 (07:20→19:23)
[2018-04-11] MEDS: Morphine PCA 1 mg/ml (30ml) 30 ML IV PRN ×2 (08:28→18:24)
--- NOTE | 2018-04-11 12:25 | CP.PCM.PN ---
Subjective - Date & Time of Evaluation Date of Evaluation: 04/11/18 Time of Evaluation: 11:30 - Subjective Subjective: Alert, forgetful at times. Offers no complaints Objective - Vital Signs/Intake and Output Vital Signs (last 24 hours): Temp Pulse Resp BP Pulse Ox 97.7 F 98 H 20 101/61 95 04/04/18 18:21 04/04/18 18:21 04/05/18 20:20 04/04/18 18:21 04/10/18 20:00 Intake and Output: 04/11/18 04/11/18 06:59 18:59 Intake Total 210 30 Output Total 300 Balance -90 30 - Medications Medications: Current Medications Acetaminophen (Tylenol 650 Mg Supp) 650 mg RC Q4H PRN PRN Reason: Fever >100.4 F Albuterol Sulfate (Albuterol 0.5% Inhal Marilee (2.5 Mg/0.5 Ml) Ud) 2.5 [address] [facility] Last Admin: 04/11/18 07:20 Dose: 2.5 mg Albuterol/Ipratropium (Duoneb 3 Mg/0.5 Mg (3 Ml) Ud) 3 ml IH [id number] PRN PRN Reason: Shortness of Breath Last Admin: 04/10/18 07:47 Dose: 3 ml Budesonide (Pulmicort Respules) 0.[id number] [facility] Last Admin: 04/11/18 07:20 Dose: 0.5 mg Docusate Sodium (Colace) 100 mg PO DAILY PRN PRN Reason: Constipation Gabapentin (Neurontin) [address] [facility]; Protocol Last Admin: 04/11/18 09:11 Dose: 300 mg Morphine Sulfate (Morphine Diesel Engine Mechanic Apprentice 1 Mg/Ml) 30 mls @ 3 mls/hr IV PRN PRN; Protocol PRN Reason: NARRATIVE WRITER PER MD ORDER Last Admin: 04/11/18 08:28 Dose: 3 mg/hr, 3 mls/hr Lorazepam (Ativan) 0.5 mg IVP Q6H PRN; Protocol PRN Reason: Anxiety Last Admin: 04/07/18 22:07 Dose: 0.5 mg Ondansetron HCl (Zofran Inj) 4 mg IVP Q4H PRN PRN Reason: Nausea/Vomiting Last Admin: 01/28/19 12:18 Dose: 4 mg Prednisone (Prednisone Tab) 15 mg PO DAILY DAVID Last Admin: 04/11/18 09:12 Dose: 15 mg - Constitutional Appears: Cachectic, Chronically Ill - Head Exam Head Exam: NORMOCEPHALIC - Eye Exam Eye Exam: Normal appearance, PERRL - ENT Exam ENT Exam: Mucous Membranes Moist - Respiratory Exam Respiratory Exam: Decreased Breath Sounds, Rhonchi Additional comments: right chest tube - Cardiovascular Exam Cardiovascular Exam: REGULAR RHYTHM, +S1, +S2 - GI/Abdominal Exam GI & Abdominal Exam: Soft, Normal Bowel Sounds - Extremities Exam Additional comments: 2+ pedal edema - Skin Skin Exam: Dry, Pallor Assessment and Plan - Assessment and Plan (Free Text) Assessment: 67 year old male with hsitoy of non small cell lung cancer,right pneumothorax, s/p right chest tube, respiratory failure who is admitted under [facility] hosp[facility] services for pain and symptom management Patient still has pain MICHAEL quadrant, states it is somewhat controlled, rates at 6. He also has neuropathic pain in both lower extremities. Chest tube to continuous water seal. Appetite fair/poor Remains bedbiound Plan: Will clamp chest tube and re-evaluate respiratory status Nebulzers/solumedrol Morphine 3 mg/hr continuos infusion, Morphine NARRATIVE WRITER 0.5 mg every 30 minutes Ativan 0.5 mg as needed for agitation Neurontin 300mg BID for neuropathic pain Tylenol 650 mg as needed for fever Fiordaliza danielle
--- NOTE | 2018-04-11 17:44 | CP.PCM.PN ---
<Paloma Rodriguez - Last Filed: 04/11/18 17:39> Subjective - Date & Time of Evaluation Date of Evaluation: 04/11/18 Time of Evaluation: 10:00 - Subjective Subjective: Paloma Rodriguez, PGY-1, Medicine Progress Note for Dr. Novak: Pt was seen and examined this AM at bedside. Pt states that he is still feeling comfortable and that the pain is well controlled and the leg pain responded to the gabapentin. He states that overnight he did not have any complaints and was able to sleep earlier than normal. Pt continues to state that he does not want to pull chest tube out and that he has made up his mind about it. Pt has no acute complaints at this time. An attempt will be made to clamp the pts chest tube and assess whether he will be comfortable with chest tube removal discussion afterward. Objective - Vital Signs/Intake and Output Vital Signs (last 24 hours): Temp Pulse Resp BP Pulse Ox 97.7 F 98 H 20 101/61 95 04/04/18 18:21 04/04/18 18:21 04/05/18 20:20 04/04/18 18:21 04/10/18 20:00 Intake and Output: 04/11/18 04/11/18 06:59 18:59 Intake Total 210 30 Output Total 300 Balance -90 30 - Medications Medications: Current Medications Acetaminophen (Tylenol 650 Mg Supp) 650 mg RC Q4H PRN PRN Reason: Fever >100.4 F Albuterol Sulfate (Albuterol 0.5% Inhal Marilee (2.5 Mg/0.5 Ml) Ud) 2.5 mg IH [id number] [facility] Last Admin: 04/11/18 13:56 Dose: 2.5 mg Albuterol/Ipratropium (Duoneb 3 Mg/0.5 Mg (3 Ml) Ud) 3 ml IH [id number] PRN PRN Reason: Shortness of Breath Last Admin: 04/10/18 07:47 Dose: 3 ml Budesonide (Pulmicort Respules) 0.5 mg IH [id number] [facility] Last Admin: 04/11/18 07:20 Dose: 0.5 mg Docusate Sodium (Colace) 100 mg PO DAILY PRN PRN Reason: Constipation Gabapentin (Neurontin) 300 mg PO BID [facility]; Protocol Last Admin: 04/11/18 17:24 Dose: 300 mg Morphine Sulfate (Morphine Dry Roaster 1 Mg/Ml) 30 mls @ 3 mls/hr IV PRN PRN; Protocol PRN Reason: CAFE SITE ATTENDANT PER MD ORDER Last Admin: 04/11/18 08:28 Dose: 3 mg/hr, 3 mls/hr Lorazepam (Ativan) 0.5 mg IVP Q6H PRN; Protocol PRN Reason: Anxiety Last Admin: 04/07/18 22:07 Dose: 0.5 mg Ondansetron HCl (Zofran Inj) 4 mg IVP Q4H PRN PRN Reason: Nausea/Vomiting Last Admin: 04/11/18 17:24 Dose: 4 mg Prednisone (Prednisone Tab) 15 mg PO DAILY DAVID Last Admin: 04/11/18 09:12 Dose: 15 mg - Constitutional Appears: Non-toxic, Cachectic, Chronically Ill - Head Exam Head Exam: ATRAUMATIC, NORMAL INSPECTION, NORMOCEPHALIC - Eye Exam Eye Exam: EOMI, Normal appearance, PERRL - Respiratory Exam Respiratory Exam: Decreased Breath Sounds (R worse than L), NORMAL BREATHING PATTERN. absent: Accessory Muscle Use, Rales, Wheezes, Respiratory Distress, Stridor Additional comments: Pt is also noted to have 2 tubes from R side. Both chest tube and pleur-x cath still in place, sites are clean and dry - Cardiovascular Exam Cardiovascular Exam: RRR, +S1, +S2. absent: Gallop, Rubs - GI/Abdominal Exam GI & Abdominal Exam: Soft, Normal Bowel Sounds. absent: Firm, Guarding, Rigid, Tenderness - Extremities Exam Extremities Exam: Pedal Edema (2+ pedal edema b/l) - Back Exam Back Exam: NORMAL INSPECTION. absent: CVA tenderness (L), CVA tenderness (R) - Neurological Exam Neurological Exam: Alert, Awake, Oriented x3 - Psychiatric Exam Psychiatric exam: Normal Affect, Normal Mood - Skin Skin Exam: Dry, Normal Color, Warm Assessment and Plan - Assessment and Plan (Free Text) Assessment: 67M w/ a reported PMH of Lung adenocarcinoma CA w/ mets to liver (s/p ablation and VATS procedure) and bone, HTN, EtOH abuse, Anxeity, presented to [facility] from 03/11/18-04/04/18 w/ complaints of SOB. Pt is now with compassionate care team and will be managed per their recs. Plan: 1) Comfort Care: - Pt had decided with family to be placed in comfort care - Pt currently comfortable on CAFE SITE ATTENDANT pump setting - Gabapentin added on per comfort care team - PRN duonebs and stool softeners on board - Pt still refusing to pull chest tube out. - Chest tube clamped, but the pt experienced dyspnea later in the day. Chest tube unclamped - Elevate pts feet b/l to reduce edema in pts LE. - Further recs per comfort care team. Dispo: Will cont to f/u with pt nurse and comfort care team in regards to inpt vs outpt hospice. - Hospice Contact: Darlyn Case seen and discussed with Dr. Scarlet Rodriguez, PGY-1 <Flor Novak - Last Filed: 04/11/18 18:25> Objective - Vital Signs/Intake and Output Vital Signs (last 24 hours): Temp Pulse Resp BP Pulse Ox 97.7 F 98 H 20 101/61 95 04/04/18 18:21 04/04/18 18:21 04/05/18 20:20 04/04/18 18:21 04/10/18 20:00 Intake and Output: 04/11/18 04/11/18 06:59 18:59 Intake Total 210 30 Output Total 300 Balance -90 30 - Medications Medications: Current Medications Acetaminophen (Tylenol 650 Mg Supp) 650 mg RC Q4H PRN PRN Reason: Fever >100.4 F Albuterol Sulfate (Albuterol 0.5% Inhal Marilee (2.5 Mg/0.5 Ml) Ud) 2.5 mg IH [id number] [facility] Last Admin: 04/11/18 13:56 Dose: 2.5 mg Albuterol/Ipratropium (Duoneb 3 Mg/0.5 Mg (3 Ml) Ud) 3 ml IH [id number] PRN PRN Reason: Shortness of Breath Last Admin: 04/10/18 07:47 Dose: 3 ml Budesonide (Pulmicort Respules) 0.5 mg IH [id number] [facility] Last Admin: 04/11/18 07:20 Dose: 0.5 mg Docusate Sodium (Colace) 100 mg PO DAILY PRN PRN Reason: Constipation Gabapentin (Neurontin) 300 mg PO BID [facility]; Protocol Last Admin: 04/11/18 17:24 Dose: 300 mg Morphine Sulfate (Morphine Dry Roaster 1 Mg/Ml) 30 mls @ 3 mls/hr IV PRN PRN; Protocol PRN Reason: CAFE SITE ATTENDANT PER MD ORDER Last Admin: 04/11/18 08:28 Dose: 3 mg/hr, 3 mls/hr Lorazepam (Ativan) 0.5 mg IVP Q6H PRN; Protocol PRN Reason: Anxiety Last Admin: 04/07/18 22:07 Dose: 0.5 mg Ondansetron HCl (Zofran Inj) 4 mg IVP Q4H PRN PRN Reason: Nausea/Vomiting Last Admin: 04/11/18 17:24 Dose: 4 mg Prednisone (Prednisone Tab) 15 mg PO DAILY DAVID Last Admin: 04/11/18 09:12 Dose: 15 mg Attending/Attestation - Attestation I have personally seen and examined this patient.: Yes I have fully participated in the care of the patient.: Yes I have reviewed all pertinent clinical information, including history, physical exam and plan: Yes Notes (Text): 04/11/18 18:23 67 year old male with past medical history of adenocarcinoma of the lungs, hypertension, anxiety and alcohol abuse who initially presented with shortness of breath secondary to recurrent right sided pleural effusion. Patient had thoracocentesis done with chest tube placement. Repeat CXR showed hydropneumothorax and patient underwent VATS. He was temporarily on respiratory support s/p VATS procedure. After extensive discussion with family and patient they decided on hospice care which was initiated last week. Continue with supportive care as per hospice team. Added gabapentin for neuropathy earlier this week with some improvement of symptoms. Chest tube was clamped today which patient was not able to tolerate. Placed back on water seal. Discussed with palliative care. Daughter is at bedside and questions were answered. Patient is DNR/DNI. Flor Novak MD Hospitalist.
[2018-04-12] MEDS: Morphine PCA 1 mg/ml (30ml) 30 ML IV PRN ×2 (05:04→15:34)
--- NOTE | 2018-04-12 08:08 | CP.PCM.PN ---
<Nataliya Hernández - Last Filed: 04/12/18 16:44> Subjective - Date & Time of Evaluation Date of Evaluation: 04/12/18 Time of Evaluation: 08:08 - Subjective Subjective: Nataliya Hernández, PGY2, Medicine Progress Note for Dr Novak: Patient seen and examined at bedside. Yesterday afternoon, chest tube was clamped. However, patient became sob, diaphoretic after 2 hours and chest tube was unclamped. This AM, patient remains comfortable on morphine BLAST FURNACE OPERATOR pump. States that he wants something to dry his secretions. Denies nausea, vomiting, fevers. States that he is comfortable currently. Objective - Vital Signs/Intake and Output Vital Signs (last 24 hours): Temp Pulse Resp BP Pulse Ox 97.7 F 98 H 20 101/61 95 04/04/18 18:21 04/04/18 18:21 04/05/18 20:20 04/04/18 18:21 04/10/18 20:00 Intake and Output: 04/12/18 04/12/18 06:59 18:59 Intake Total 30 Balance 30 - Medications Medications: Current Medications Acetaminophen (Tylenol 650 Mg Supp) 650 mg RC Q4H PRN PRN Reason: Fever >100.4 F Albuterol Sulfate (Albuterol 0.5% Inhal Marilee (2.5 Mg/0.5 Ml) Ud) 2.5 mg IH [id number] [facility] Last Admin: 04/11/18 19:23 Dose: 2.5 mg Albuterol/Ipratropium (Duoneb 3 Mg/0.5 Mg (3 Ml) Ud) 3 ml IH [id number] PRN PRN Reason: Shortness of Breath Last Admin: 04/10/18 07:47 Dose: 3 ml Budesonide (Pulmicort Respules) 0.5 mg IH [id number] [facility] Last Admin: 04/11/18 19:23 Dose: 0.5 mg Docusate Sodium (Colace) 100 mg PO DAILY PRN PRN Reason: Constipation Gabapentin (Neurontin) 300 mg PO BID [facility]; Protocol Last Admin: 04/11/18 17:24 Dose: 300 mg Morphine Sulfate (Morphine Wheat Buyer 1 Mg/Ml) 30 mls @ 3 mls/hr IV PRN PRN; Protocol PRN Reason: BLAST FURNACE OPERATOR PER MD ORDER Last Admin: 04/12/18 05:04 Dose: 3 mg/hr, 3 mls/hr Lorazepam (Ativan) 0.5 mg IVP Q6H PRN; Protocol PRN Reason: Anxiety Last Admin: 04/07/18 22:07 Dose: 0.5 mg Ondansetron HCl (Zofran Inj) 4 mg IVP Q4H PRN PRN Reason: Nausea/Vomiting Last Admin: 04/11/18 21:06 Dose: 4 mg Prednisone (Prednisone Tab) 15 mg PO DAILY DAVID Last Admin: 04/11/18 09:12 Dose: 15 mg - Additional Findings Additional findings: - Constitutional Appears: Non-toxic, Cachectic, Chronically Ill - Head Exam Head Exam: ATRAUMATIC, NORMAL INSPECTION, NORMOCEPHALIC - Eye Exam Eye Exam: EOMI, Normal appearance, PERRL - Respiratory Exam Respiratory Exam: Decreased Breath Sounds (R worse than L), NORMAL BREATHING PATTERN. absent: Accessory Muscle Use, Rales, Wheezes, Respiratory Distress, Stridor Additional comments: Pt is also noted to have 2 tubes from R side. Both chest tube and pleur-x cath still in place, sites are clean and dry - Cardiovascular Exam Cardiovascular Exam: RRR, +S1, +S2. absent: Gallop, Rubs - GI/Abdominal Exam GI & Abdominal Exam: Soft, Normal Bowel Sounds. absent: Firm, Guarding, Rigid, Tenderness - Extremities Exam Extremities Exam: Pedal Edema (2+ pedal edema b/l) - Back Exam Back Exam: NORMAL INSPECTION. 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 Pt is now with compassionate care team and will be managed per their recs. Chest was tried to be clamped yesterday, but patient became short of breath and required the tube to be unclamped. Awaiting hospice nurse to find patient facility to accept patient with chest tube: Comfort Care: - Pt had decided with family to be placed on comfort care - Pt currently comfortable on BLAST FURNACE OPERATOR pump setting - continue with Gabapentin - PRN duonebs and stool softeners - Elevate pts feet b/l to reduce edema in pts LE. - added Scopolamine patch - Further recs per comfort care team. Dispo: Will cont to f/u with pt nurse and comfort care team in regards to inpt vs outpt hospice. - Hospice Contact: Darlyn Case seen and discussed with Dr. Novak <Flor Novak - Last Filed: 04/12/18 17:43> Objective - Vital Signs/Intake and Output Vital Signs (last 24 hours): Temp Pulse Resp BP Pulse Ox 97.7 F 98 H 20 101/61 95 04/04/18 18:21 04/04/18 18:21 04/05/18 20:20 04/04/18 18:21 04/10/18 20:00 Intake and Output: 04/12/18 04/12/18 06:59 18:59 Intake Total 30 30 Balance 30 30 - Medications Medications: Current Medications Acetaminophen (Tylenol 650 Mg Supp) 650 mg RC Q4H PRN PRN Reason: Fever >100.4 F Albuterol Sulfate (Albuterol 0.5% Inhal Marilee (2.5 Mg/0.5 Ml) Ud) 2.5 mg IH [id number] [facility] Last Admin: 04/12/18 08:35 Dose: 2.5 mg Albuterol/Ipratropium (Duoneb 3 Mg/0.5 Mg (3 Ml) Ud) 3 ml IH [id number] PRN PRN Reason: Shortness of Breath Last Admin: 04/10/18 07:47 Dose: 3 ml Budesonide (Pulmicort Respules) 0.5 mg IH [id number] [facility] Last Admin: 04/12/18 08:35 Dose: 0.5 mg Docusate Sodium (Colace) 100 mg PO DAILY PRN PRN Reason: Constipation Gabapentin (Neurontin) 300 mg PO BID [facility]; Protocol Last Admin: 04/12/18 09:15 Dose: 300 mg Morphine Sulfate (Morphine Wheat Buyer 1 Mg/Ml) 30 mls @ 3 mls/hr IV PRN PRN; Protocol PRN Reason: BLAST FURNACE OPERATOR PER MD ORDER Last Admin: 04/12/18 15:34 Dose: 3 mg/hr, 3 mls/hr Lorazepam (Ativan) 0.5 mg IVP Q6H PRN; Protocol PRN Reason: Anxiety Last Admin: 04/07/18 22:07 Dose: 0.5 mg Ondansetron HCl (Zofran Inj) 4 mg IVP Q4H PRN PRN Reason: Nausea/Vomiting Last Admin: 04/11/18 21:06 Dose: 4 mg Prednisone (Prednisone Tab) 15 mg PO DAILY [facility] Last Admin: 04/12/18 09:15 Dose: 15 mg Scopolamine (Transderm-Scop) 1 patch TD Q3D [facility] Last Admin: 04/12/18 11:42 Dose: 1 patch Attending/Attestation - Attestation I have personally seen and examined this patient.: Yes I have fully participated in the care of the patient.: Yes I have reviewed all pertinent clinical information, including history, physical exam and plan: Yes Notes (Text): 04/12/18 17:42 67 year old male with past medical history of adenocarcinoma of the lungs, hypertension, anxiety and alcohol abuse who initially presented with shortness of breath secondary to recurrent right sided pleural effusion. Patient had thoracocentesis done with chest tube placement. Repeat CXR showed hydropneumothorax and patient underwent VATS. He was temporarily on respiratory support s/p VATS procedure. After extensive discussion with family and patient they decided on hospice care which was initiated last week. Continue with supportive care as per hospice team. Chest tube is in place. Patient is DNR/DNI. Flor Novak MD Hospitalist.
[2018-04-12] MEDS: Budesonide 0.5 mg/2 ml Inhal Susp UD IH SCH ×2 (08:35→19:10)
[2018-04-12] MEDS: Albuterol 0.5% Inhal Sol (2.5 mg/0.5 ml) UD IH SCH ×2 (08:35→19:10)
[2018-04-13] MEDS: Morphine PCA 1 mg/ml (30ml) 30 ML IV PRN ×3 (01:58→23:11)
[2018-04-13] MEDS: Albuterol 0.5% Inhal Sol (2.5 mg/0.5 ml) UD IH SCH ×3 (03:11→19:50)
[2018-04-13] MEDS: Budesonide 0.5 mg/2 ml Inhal Susp UD IH SCH ×2 (08:23→19:50)
[2018-04-13] MEDS ORDERED: Hyoscyamine 0.125 mg SL Tab PO PRN (10:47)
[2018-04-13] MEDS ORDERED: DiphenhydrAMINE 50 mg/ml Inj IVP PRN (11:44)
--- NOTE | 2018-04-13 22:15 | CP.PCM.PN ---
<Darrion Mccauley - Last Filed: 04/13/18 22:05> Subjective - Date & Time of Evaluation Date of Evaluation: 04/13/18 Time of Evaluation: 22:05 - Subjective Subjective: Internal Medicine Progress Note: Patient seen and assessed at bedside. No acute events overnight. Patient noted to have had increased secretions that are difficult to suction. Patient unresponsive to verbal and tactile stimuli. Demonstrates withdrawal from painful stimuli. ROS unobtainable at this time. Objective - Vital Signs/Intake and Output Vital Signs (last 24 hours): Temp Pulse Resp BP Pulse Ox 97.7 F 98 H 20 101/61 95 04/04/18 18:21 04/04/18 18:21 04/05/18 20:20 04/04/18 18:21 04/10/18 20:00 Intake and Output: 04/13/18 04/14/18 18:59 06:59 Intake Total 30 Balance 30 - Medications Medications: Current Medications Acetaminophen (Tylenol 650 Mg Supp) 650 mg RC Q4H PRN PRN Reason: Fever >100.4 F Albuterol Sulfate (Albuterol 0.5% Inhal Marilee (2.5 Mg/0.5 Ml) Ud) 2.5 mg IH [id number] [facility] Last Admin: 04/13/18 19:50 Dose: Not Given Albuterol/Ipratropium (Duoneb 3 Mg/0.5 Mg (3 Ml) Ud) 3 ml IH [id number] PRN PRN Reason: Shortness of Breath Last Admin: 04/10/18 07:47 Dose: 3 ml Budesonide (Pulmicort Respules) 0.5 mg IH [id number] [facility] Last Admin: 04/13/18 19:50 Dose: Not Given Diphenhydramine HCl (Benadryl) 25 mg IVP Q8H PRN PRN Reason: Allergy symptoms Last Admin: 04/13/18 13:59 Dose: 25 mg Docusate Sodium (Colace) 100 mg PO DAILY PRN PRN Reason: Constipation Gabapentin (Neurontin) 300 mg PO BID [facility]; Protocol Last Admin: 04/13/18 20:03 Dose: Not Given Hyoscyamine (Levsin) 0.125 mg PO Q4H PRN PRN Reason: GI distress Last Admin: 04/13/18 11:30 Dose: 0.125 mg Morphine Sulfate (Morphine Oral And Maxillofacial Pathologist 1 Mg/Ml) 30 mls @ 3 mls/hr IV PRN PRN; Protocol PRN Reason: REVERSAL PRINT INSPECTOR PER MD ORDER Last Admin: 04/13/18 12:48 Dose: 3 mg/hr, 3 mls/hr Lorazepam (Ativan) 0.5 mg IVP Q6H PRN; Protocol PRN Reason: Anxiety Last Admin: 04/13/18 10:35 Dose: 0.5 mg Ondansetron HCl (Zofran Inj) 4 mg IVP Q4H PRN PRN Reason: Nausea/Vomiting Last Admin: 04/11/18 21:06 Dose: 4 mg Prednisone (Prednisone Tab) 15 mg PO DAILY [facility] Last Admin: 04/13/18 10:21 Dose: 15 mg Scopolamine (Transderm-Scop) 1 patch TD Q3D [facility] Last Admin: 04/12/18 11:42 Dose: 1 patch - Additional Findings Additional findings: - Constitutional Appears: Cachectic, Chronically Ill - Head Exam Head Exam: ATRAUMATIC, NORMAL INSPECTION, NORMOCEPHALIC - Eye Exam Eye Exam: EOMI, Normal appearance, PERRL - Respiratory Exam Respiratory Exam: Decreased Breath Sounds, NORMAL BREATHING PATTERN. absent: Accessory Muscle Use, Rales, Wheezes, Respiratory Distress, Stridor Additional comments: Chest tubes in place without signs of clinical infection of the surrounding soft tissue - Cardiovascular Exam Cardiovascular Exam: RRR, +S1, +S2. absent: Gallop, Rubs - GI/Abdominal Exam GI & Abdominal Exam: Soft, Normal Bowel Sounds. absent: Firm, Guarding, Rigid, Tenderness - Extremities Exam Extremities Exam: Pedal Edema (2+ b/l) - Back Exam Back Exam: NORMAL INSPECTION. 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 Plan: 1. Comfort Care -Continue Morphine REVERSAL PRINT INSPECTOR as ordered -Continue Gabapentin, Prednisone, Scopolamine TD, Albuterol INH and Pulmicort as scheduled -Continue Tylenol, Duonebs, Benadryl, Colace, Levsin, Ativan, and Zofran as needed -Continue extremity elevation to reduce edema -Further recommendations as per comfort care team Patient seen and case discussed with attending, Dr. Novak. Darrion Mccauley PGY2 <Flor Novak - Last Filed: 04/13/18 22:36> Objective - Vital Signs/Intake and Output Vital Signs (last 24 hours): Temp Pulse Resp BP Pulse Ox 97.7 F 98 H 20 101/61 95 04/04/18 18:21 04/04/18 18:21 04/05/18 20:20 04/04/18 18:21 04/10/18 20:00 Intake and Output: 04/13/18 04/14/18 18:59 06:59 Intake Total 30 Balance 30 - Medications Medications: Current Medications Acetaminophen (Tylenol 650 Mg Supp) 650 mg RC Q4H PRN PRN Reason: Fever >100.4 F Albuterol Sulfate (Albuterol 0.5% Inhal Marilee (2.5 Mg/0.5 Ml) Ud) 2.5 mg IH [id number] [facility] Last Admin: 04/13/18 19:50 Dose: Not Given Albuterol/Ipratropium (Duoneb 3 Mg/0.5 Mg (3 Ml) Ud) 3 ml IH [id number] PRN PRN Reason: Shortness of Breath Last Admin: 04/10/18 07:47 Dose: 3 ml Budesonide (Pulmicort Respules) 0.5 mg IH [id number] [facility] Last Admin: 04/13/18 19:50 Dose: Not Given Diphenhydramine HCl (Benadryl) 25 mg IVP Q8H PRN PRN Reason: Allergy symptoms Last Admin: 04/13/18 13:59 Dose: 25 mg Docusate Sodium (Colace) 100 mg PO DAILY PRN PRN Reason: Constipation Gabapentin (Neurontin) 300 mg PO BID [facility]; Protocol Last Admin: 04/13/18 20:03 Dose: Not Given Hyoscyamine (Levsin) 0.125 mg PO Q4H PRN PRN Reason: GI distress Last Admin: 04/13/18 11:30 Dose: 0.125 mg Morphine Sulfate (Morphine Oral And Maxillofacial Pathologist 1 Mg/Ml) 30 mls @ 3 mls/hr IV PRN PRN; Protocol PRN Reason: REVERSAL PRINT INSPECTOR PER MD ORDER Last Admin: 04/13/18 12:48 Dose: 3 mg/hr, 3 mls/hr Lorazepam (Ativan) 0.5 mg IVP Q6H PRN; Protocol PRN Reason: Anxiety Last Admin: 04/13/18 10:35 Dose: 0.5 mg Ondansetron HCl (Zofran Inj) 4 mg IVP Q4H PRN PRN Reason: Nausea/Vomiting Last Admin: 04/11/18 21:06 Dose: 4 mg Prednisone (Prednisone Tab) 15 mg PO DAILY [facility] Last Admin: 04/13/18 10:21 Dose: 15 mg Scopolamine (Transderm-Scop) 1 patch TD Q3D [facility] Last Admin: 04/12/18 11:42 Dose: 1 patch Attending/Attestation - Attestation I have personally seen and examined this patient.: Yes I have fully participated in the care of the patient.: Yes I have reviewed all pertinent clinical information, including history, physical exam and plan: Yes
[2018-04-14] MEDS: Albuterol 0.5% Inhal Sol (2.5 mg/0.5 ml) UD IH SCH ×2 (02:10→07:25)
[2018-04-14] MEDS: Budesonide 0.5 mg/2 ml Inhal Susp UD IH SCH (07:25)
[2018-04-14] MEDS ORDERED: Morphine PCA 1 mg/ml (30ml) 30 ML IV PRN ×2 (10:07→11:41)
--- NOTE | 2018-04-14 14:47 | CP.PCM.PN ---
Subjective - Date & Time of Evaluation Date of Evaluation: 04/14/18 Time of Evaluation: 11:00 - Subjective Subjective: Unresponsive, pupils fixed, tachycardia Objective - Vital Signs/Intake and Output Vital Signs (last 24 hours): Temp Pulse Resp BP Pulse Ox 97.7 F 98 H 20 101/61 95 04/04/18 18:21 04/04/18 18:21 04/05/18 20:20 04/04/18 18:21 04/13/18 20:00 Intake and Output: 04/14/18 04/14/18 06:59 18:59 Intake Total 30 4 Balance 30 4 - Medications Medications: Current Medications Acetaminophen (Tylenol 650 Mg Supp) 650 mg RC Q4H PRN PRN Reason: Fever >100.4 F Albuterol/Ipratropium (Duoneb 3 Mg/0.5 Mg (3 Ml) Ud) 3 ml IH [id number] PRN PRN Reason: Shortness of Breath Last Admin: 04/10/18 07:47 Dose: 3 ml Diphenhydramine HCl (Benadryl) 25 mg IVP Q8H PRN PRN Reason: Allergy symptoms Last Admin: 04/13/18 13:59 Dose: 25 mg Morphine Sulfate (Morphine Pad Machine Offbearer 1 Mg/Ml) 30 mls @ 4 mls/hr IV PRN PRN; Protocol PRN Reason: MACHINERY RIGGER PER MD ORDER Lorazepam (Ativan) 0.5 mg IVP Q6H PRN; Protocol PRN Reason: Anxiety Last Admin: 04/13/18 10:35 Dose: 0.5 mg Ondansetron HCl (Zofran Inj) 4 mg IVP Q4H PRN PRN Reason: Nausea/Vomiting Last Admin: 04/11/18 21:06 Dose: 4 mg Scopolamine (Transderm-Scop) 1 patch TD Q3D DAVID Last Admin: 04/12/18 11:42 Dose: 1 patch - Constitutional Appears: Cachectic, Chronically Ill - Eye Exam Pupil Exam: Fixed - ENT Exam ENT Exam: Mucous Membranes Dry - Respiratory Exam Respiratory Exam: Decreased Breath Sounds, Rhonchi Additional comments: irregular - Cardiovascular Exam Cardiovascular Exam: Tachycardia - GI/Abdominal Exam GI & Abdominal Exam: Hypoactive Bowel Sounds - Extremities Exam Additional comments: 2+ edema - Skin Skin Exam: Dry, Pallor Assessment and Plan - Assessment and Plan (Free Text) Assessment: 67 year old male with history of metastatic lung cancer, right pneumothorax who is admitted under [facility] fore pain and symptom management. Family at bedside. Signs of impending explained. End of life counseling provided, time spent 30 minutes Plan: End of life counseling Discontinue all oral medications Increase Morphine continuous infusion to 4 mg/hr. Discontinue MACHINERY RIGGER dosing Ativan 0.5 mg every 6 hours as needed Benadryl 25 mg IVP ss needed, Scopolamine, gentle suctioning Tylenol 650 mg RC for fever
--- NOTE | 2018-04-14 15:22 | CP.PCM.PN ---
<Paloma Rodriguez - Last Filed: 04/14/18 16:20> Subjective - Date & Time of Evaluation Date of Evaluation: 04/14/18 Time of Evaluation: 09:30 - Subjective Subjective: Paloma Rodriguez, PGY-1, Medicine Progress Note for Dr. Sidhu: Pt was seen and examined this AM at bedside. Pt is unresponsive, pupils are fixed. Pt breathing is irregular at this time. Objective - Vital Signs/Intake and Output Vital Signs (last 24 hours): Temp Pulse Resp BP Pulse Ox 97.7 F 98 H 20 101/61 95 04/04/18 18:21 04/04/18 18:21 04/05/18 20:20 04/04/18 18:21 04/13/18 20:00 Intake and Output: 04/14/18 04/14/18 06:59 18:59 Intake Total 30 4 Balance 30 4 - Medications Medications: Current Medications Acetaminophen (Tylenol 650 Mg Supp) 650 mg RC Q4H PRN PRN Reason: Fever >100.4 F Albuterol/Ipratropium (Duoneb 3 Mg/0.5 Mg (3 Ml) Ud) 3 ml IH [id number] PRN PRN Reason: Shortness of Breath Last Admin: 04/10/18 07:47 Dose: 3 ml Diphenhydramine HCl (Benadryl) 25 mg IVP Q8H PRN PRN Reason: Allergy symptoms Last Admin: 04/13/18 13:59 Dose: 25 mg Morphine Sulfate (Morphine Programming Internship 1 Mg/Ml) 30 mls @ 4 mls/hr IV PRN PRN; Protocol PRN Reason: CLOTH EXAMINER MACHINE PER MD ORDER Lorazepam (Ativan) 0.5 mg IVP Q6H PRN; Protocol PRN Reason: Anxiety Last Admin: 04/13/18 10:35 Dose: 0.5 mg Ondansetron HCl (Zofran Inj) 4 mg IVP Q4H PRN PRN Reason: Nausea/Vomiting Last Admin: 04/11/18 21:06 Dose: 4 mg Scopolamine (Transderm-Scop) 1 patch TD Q3D DAVID Last Admin: 04/12/18 11:42 Dose: 1 patch - Constitutional Appears: Cachectic, Chronically Ill - Head Exam Head Exam: ATRAUMATIC, NORMAL INSPECTION, NORMOCEPHALIC - Eye Exam Pupil Exam: Fixed - Respiratory Exam Respiratory Exam: Decreased Breath Sounds (Worse on R than L), Rhonchi. absent: NORMAL BREATHING PATTERN (irregular) Additional comments: Pt is noted to have 2 tubes from R side. Both chest tube and pleur-x cath still in place, sites are clean and dry - Cardiovascular Exam Cardiovascular Exam: Tachycardia, +S1, +S2. absent: Gallop, Rubs - GI/Abdominal Exam GI & Abdominal Exam: Soft, Hypoactive Bowel Sounds. absent: Distended, Firm - Extremities Exam Extremities Exam: Pedal Edema (2+ pitting edema b/l) - Back Exam Back Exam: NORMAL INSPECTION. 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 Pt is now with compassionate care team and will be managed per their recs. Plan: 1) Comfort Care: - Pt had decided with family to be placed in comfort care - Pt has pinpoint pupils - CLOTH EXAMINER MACHINE pump increased to 4mg to morphine - Gabapentin added on per comfort care team - PRN duonebs and stool softeners on board - Pt still refusing to pull chest tube out. - Chest tube clamp failed, pt had dyspnea after 2 hrs of clamp. - Elevate pts feet b/l to reduce edema in pts LE. - Further recs per comfort care team. - Hospice Contact: Darlyn Case seen and discussed with Dr. Nahum Rodriguez, PGY-1 <Fred Sidhu - Last Filed: 04/14/18 18:18> Objective - Vital Signs/Intake and Output Vital Signs (last 24 hours): Temp Pulse Resp BP Pulse Ox 97.7 F 98 H 20 101/61 95 04/04/18 18:21 04/04/18 18:21 04/05/18 20:20 04/04/18 18:21 04/13/18 20:00 Intake and Output: 02/04/19 02/04/19 06:59 18:59 Intake Total 30 4 Balance 30 4 - Medications Medications: Current Medications Acetaminophen (Tylenol 650 Mg Supp) 650 mg RC Q4H PRN PRN Reason: Fever >100.4 F Albuterol/Ipratropium (Duoneb 3 Mg/0.5 Mg (3 Ml) Ud) 3 ml IH [id number] PRN PRN Reason: Shortness of Breath Last Admin: 04/10/18 07:47 Dose: 3 ml Diphenhydramine HCl (Benadryl) 25 mg IVP Q8H PRN PRN Reason: Allergy symptoms Last Admin: 04/13/18 13:59 Dose: 25 mg Morphine Sulfate (Morphine Programming Internship 1 Mg/Ml) 30 mls @ 4 mls/hr IV PRN PRN; Protocol PRN Reason: CLOTH EXAMINER MACHINE PER MD ORDER Lorazepam (Ativan) 0.5 mg IVP Q6H PRN; Protocol PRN Reason: Anxiety Last Admin: 04/13/18 10:35 Dose: 0.5 mg Ondansetron HCl (Zofran Inj) 4 mg IVP Q4H PRN PRN Reason: Nausea/Vomiting Last Admin: 04/11/18 21:06 Dose: 4 mg Scopolamine (Transderm-Scop) 1 patch TD Q3D DAVID Last Admin: 04/12/18 11:42 Dose: 1 patch Attending/Attestation - Attestation I have personally seen and examined this patient.: Yes I have fully participated in the care of the patient.: Yes I have reviewed all pertinent clinical information, including history, physical exam and plan: Yes Notes (Text): 04/14/18 18:18 Patient is on comfort measures. Continue supportive care. Prognosis is guarded.
[2018-04-14 20:21] VITALS: O2SAT 94
--- NOTE | 2018-04-15 01:37 | CP.PCM.PRO ---
<Hiram Valdez - Last Filed: 04/15/18 01:24> Pronouncement of Note - Clinical Findings Physical Exam: No Response Verbal/Painful Stimuli, Absent Peripheral Pulses{Carotid & Femoral}, Absent Heart & Breath Sounds, No Pupillary Light Reflex, No Corneal Reflex, Pupils Fixed & Dilated - Pronouncement Time Time of Pronouncement of : 01:30 - Notifications Pronouncement Notifications: Family Notified, Atending Notified Small Parts Assembler Notified: No - Autopsy Autopsy Requested: No - [place] [id number] <Parmjit,Jorge - Last Filed: 04/15/18 02:24> Attending/Attestation - Attestation I have personally seen and examined this patient.: No I have fully participated in the care of the patient.: No I have reviewed all pertinent clinical information: No
--- NOTE | 2018-04-15 15:58 | CP.PCM.DIS ---
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 Pt then spoke to Swati in regards to admission to Hospice Care after initital hospitalization resulted in failed attempts to improve the pt clinically. The pt discussed with family in regards to being placed on comfort care. Pt was admitted to the comfort care/inpt hospice team on 04/05. Pt was placed on GRINDER OUTSIDE DIAMETER pump for pain management and the pt was monitored daily to assure that the pts pain was well managed. Per comfort care team, there was duonebs, stool softeners and gabapentin added on to help ease the pts discomfort as it arose. Through out the week the pt continued to be well managed on pain regimen but unfortunately began requiring higher doses of medications to continue to be pain free. Family discussions occured daily to update the family and address their concerns and expectations. Pt began to have agonal breathing and family was updated on status of the pt, as they were bedside and could see the pt was no longer awake or alert. Pt this AM @ 1:30 am. Discharge Exam - Additional Findings Additional findings: Please see Pronouncement of note Discharge Plan - Follow Up Plan Condition: Disposition: WITH WITHOUT AUTOPSY <Fred Sidhu - Last Filed: 04/16/18 12:16> Provider - Provider Date of Admission: 04/04/18 16:10 Attending physician: Flor Novak MD Consults: 04/04/18 18:43 Case Management Referral Routine Comment: Physician Instructions: Reason For Exam: Reason for Referral: Hospice Eval Nursing Referral for Wound Care Routine Comment: sacral and r axilla wounds Physician Instructions: Reason For Exam: eval Attending/Attestation - Attestation I have personally seen and examined this patient.: Yes I have fully participated in the care of the patient.: Yes I have reviewed all pertinent clinical information, including history, physical exam and plan: Yes
== END 2018-04-15 01:30 | DRG 180 ==
LOC: 2RSO 16:10 → 5RNO 18:46
PROVIDERS: ADMIT Internal Medicine; ATTEND Internal Medicine
PROC: 3E0F7GC Introduction of Other Therapeutic Substance into Respiratory Tract, Via Natural or Artificial Opening (ICD-10-PCS; principal; 2018-04-05)
DX: C34.90 Malignant neoplasm of unspecified part of unspecified bronchus or lung (principal); I21.19 ST elevation (STEMI) myocardial infarction involving other coronary artery of inferior wall; J96.91 Respiratory failure, unspecified with hypoxia; C79.51 Secondary malignant neoplasm of bone; C78.7 Secondary malignant neoplasm of liver and intrahepatic bile duct; J91.0 Malignant pleural effusion; R64 Cachexia; J93.9 Pneumothorax, unspecified; J94.8 Other specified pleural conditions; Z51.5 Encounter for palliative care; Z66 Do not resuscitate; I10 Essential (primary) hypertension; F10.10 Alcohol abuse, uncomplicated; F41.9 Anxiety disorder, unspecified; Z68.25 Body mass index [BMI] 25.0-25.9, adult; G62.9 Polyneuropathy, unspecified; J44.9 Chronic obstructive pulmonary disease, unspecified; Z87.891 Personal history of nicotine dependence